=== PATIENT | male | born 1980 | race Caucasian/White ===

== ENCOUNTER 2023-11-02 15:10 | Inpatient (IN) | payer OTHER, SELFPAY ==
[2023-11-02] VITALS (76 sets, daily range): BP systolic 85–153; BP diastolic 62–111; PULSE 79–180; TEMP 36.3–36.9; O2SAT 91–98; BMI 38.0
[2023-11-02] MEDS: 0.9 % SODIUM CHLORIDE 1,000 ML 999 ML IV ×2 (15:30→17:02)
--- NOTE | 2023-11-02 15:30 | XR_ITS ---
The [address] [address] Patient Name: EVAN JULIEN MRN: [id number] date: 1980 Sex: M Assigned Patient Location: ER Current Patient Location: ER Accession/Order Number: [id number] Exam Date: 11/02/2023 15:50 Report Date: 11/02/2023 16:04 At the request of: KATIE HIRSCH Procedure: XR chest 1V EXAM: XR chest 1V HISTORY: chest pain COMPARISON: 05/29/2022 TECHNIQUE: Chest X-ray AP, 1 view FINDINGS: Support devices: None. Lungs/pleura: No pneumothorax. There is right upper lobe and perihilar airspace opacity with interstitial markings, may represent multifocal pneumonia and/or fibrotic changes due to prior infection/inflammation. CT of the chest with contrast is recommended for better evaluation. Heart and mediastinum: Normal contours. Bones: No acute abnormality identified. XR/XR chest 1V Impression: right upper lobe and perihilar airspace opacity with interstitial markings, may represent multifocal pneumonia and/or fibrotic changes due to prior infection/inflammation. CT of the chest with contrast is recommended for better evaluation. Electronically authenticated by: KEVON BOYD Date: 11/02/2023 16:04
--- NOTE | 2023-11-02 15:30 | ECG_ITS ---
The 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
[2023-11-02] MEDS: DILTIAZEM HCL 25 MG/5 ML VIAL 20 MG IV ×2 (15:34→17:02)
--- NOTE | 2023-11-02 15:35 | ED.GENADUL1 ---
HPI HPI - General Adult General Chief complaint: Nausea/Vomiting/Diarrhea Stated complaint: Shortness of Breath, Hx of Ca Time Seen by Provider: 11/02/23 15:14 Source: patient and family (mother) Mode of arrival: Wheelchair Limitations: no limitations History of Present Illness HPI narrative: 43-year-old male presents to the emergency department with mother with complaint of not feeling well over the past 2 days. Has had all of her body pain, cough, congestion, nausea, vomiting. Has not been tolerating solids or liquids. Patient has had chills. History of atrial fibrillation, on Eliquis. History of stage IV lung cancer. He receives weekly infusions through [facility]. Did not receive chemotherapy infusion this week. Quality:?as above Severity:?severe Timing:?as above, constant, worsening Context: Normal setting and activity? Modifying factors:?none Associated symptoms: as above Related Data Home Medications ?Medication ?Instructions ?Recorded ?Confirmed apixaban 5 mg tablet (Eliquis) 5 mg PO Q12H 11/02/23 11/02/23 buprenorphine 8 mg-naloxone 2 mg 1 film sublingual Q24H 11/02/23 11/02/23 sublingual film Allergies Allergy/AdvReac Type Severity Reaction Status Date / Time acetaminophen AdvReac Intermediate Nausea Verified 11/02/23 15:22 [From Darvocet-N] propoxyphene AdvReac Intermediate Nausea Verified 11/02/23 15:22 [From Darvocet-N] Opioid HPI Opioid Management Most Recent Opioid Data: No Data to Display Review of Systems ROS Constitutional Reports: chills, fatigue and malaise; Denies: fever Cardiovascular Reports: shortness of breath with exertion; Denies: chest pain or edema Respiratory Reports: shortness of breath and cough Gastrointestinal Reports: abdominal pain (generalized), nausea and vomiting Genitourinary Reports: decreased urine ouput; Denies: painful urination or urinary frequency Musculoskeletal Reports: joint pain and other (myalgias) Neurological Denies: headache or dizziness Endocrine Denies: fatigue Exam Constitutional Vital Signs, click to edit/add: Last Vital Signs Temp 98.4 F 11/02/23 15:18 Pulse 79 11/02/23 15:18 Resp 20 11/02/23 15:18 BP 109/88 11/02/23 15:34 Pulse Ox 97 11/02/23 15:18 O2 Del Method Room Air 11/02/23 15:18 Common normals: oriented x3 and alert General appearance: in distress mild and ill appearing acutely; not diaphoretic HENMT Common normals: normocephalic, head/scalp atraumatic and external nose normal Head and scalp: normocephalic and atraumatic Nose: external nose normal Respiratory Common normals: normal respiratory effort and clear to auscultation bilaterally Auscultation: clear to auscultation bilaterally and diminished lung sounds Cardio Common normals: no murmurs Rate: tachycardic Rhythm: abnormal rhythm irregularly irregular GI Common normals: soft to palpation and non-tender Inspection: normal to inspection Palpation: soft Extremity Common normals: normal to inspection Neuro Common normals: oriented x3, no focal motor deficits and no sensory deficits noted Sensorium/orientation: alert Psych Common normals: thought process normal, cooperative and affect normal Thought process: normal thought process Course Reevaluation(s) Reevaluation #1: HR improved to 120 Time: 17:08 Consultations Consultation #1: Patient Discussed with Dr. Camarena who will admit patient to the ICU Time: 17:08 Vital Signs Vital signs: Vital Signs Temperature 98.4 F 11/02/23 15:18 Pulse Rate 79 11/02/23 15:18 Respiratory Rate 20 11/02/23 15:18 Blood Pressure 124/98 H 11/02/23 15:18 Pulse Oximetry 97 11/02/23 15:18 Oxygen Delivery Method Room Air 11/02/23 15:18 Temperature 98.4 F 11/02/23 15:18 Pulse Rate 79 11/02/23 15:18 Respiratory Rate 20 11/02/23 15:18 Blood Pressure 109/88 11/02/23 15:34 Pulse Oximetry 97 11/02/23 15:18 Oxygen Delivery Method Room Air 11/02/23 15:18 Medical Decision Making [facility] Narrative Medical decision making narrative: This is a pleasant 43-year-old male presents to the emergency department with complaint of not feeling well over the past 2 days. Complains of nausea, vomiting, cough, generalized bodyaches, fatigue, chills. Patient with history of stage IV lung cancer. He receives infusions weekly through his port through [facility] [place]. Did not receive his infusion this week. He does have history of atrial fibrillation and is on Eliquis. On arrival, afebrile, tachycardic above 190. Normotensive. Not hypoxic. No respiratory distress. EKG was performed by nursing showing atrial fibrillation rapid reticular response. On exam, nontoxic, ill-appearing patient in no acute distress. Heart tachycardic, irregularly irregular rhythm. Lung sounds were diminished. Does demonstrate congested cough during exam. Abdomen soft, nontender. No peripheral edema. Labs reveal no leukocytosis. H&H were 11 and 33. No thrombocytopenia. Sodium 132. No renal impairment. Glucose 174. Magnesium 1.6. BNP was elevated at 1292. Troponin was within normal limits. COVID, influenza, RSV screens were negative. Chest x-ray imaging, per radiologist reveals multi focal pneumonia. With source of infection found, lactate, blood cultures added. Initial order was for 2 L of normal saline. He was given bolus of Cardizem at 20 mg and started on drip at 5 mg/h. This improved his heart rate from 190s to upper 150s. After 1 L of fluid, he remained in the upper 150s and was given subsequent bolus at 20 mg and his drip was increased to 10 mg/h. After cultures obtained, ordered IV Rocephin and Zithromax. Patient continued to improve during ED course. Heart rate has been as low as 120 up to time of disposition. Favor atrial fibrillation with rapid ventricular response, dehydration, right upper lobe pneumonia, hypomagnesemia, history of lung cancer PE less likely as patient is anticoagulated and he responded very well to treatment during ED course STEMI less likely based on biomarkers and EKG Disposition ? Plan: Patient will be admitted to the intensive care unit. Condition at time of disposition: Fair ? PLEASE NOTE: Portions of the medical record may have been produced using electronic records coordinator and may contain errors with respect to translation of words which may not have been identified prior to finalization of the chart. Medical Records Medical records reviewed: Yes I reviewed the patient's medical records Lab Data Lab results reviewed: Yes I reviewed the patient's lab results Labs: Lab Results 11/02/23 11/02/23 Range/Units 15:25 15:57 WBC 7.4 (4.0-11.0) 10^3/uL RBC 3.66 L (4.70-6.10) 10^6/uL Hgb 11.1 L (14.0-18.0) g/dL Hct 33.0 L (42.0-54.0) % MCV 90.2 (80.0-94.0) fL MCH 30.3 (25.9-34.0) pg MCHC 33.6 (29.9-35.2) g/dL RDW 15.7 H (11.0-15.0) % Plt Count 194 (150-450) 10^3/uL MPV 10.6 (9.5-13.5) fL Neut % (Auto) 73.8 (43.0-75.0) % Lymph % (Auto) 16.4 L (20.5-60.0) % [place] % (Auto) 5.3 (1.7-12.0) % Eos % (Auto) 0.0 L (0.9-7.0) % Baso % (Auto) 0.3 (0.2-2.0) % Neut # (Auto) 5.5 (1.4-6.5) 10^3/uL Lymph # (Auto) 1.2 (1.2-3.8) 10^3/uL [place] # (Auto) 0.4 (0.3-0.8) 10^3/uL Eos # (Auto) 0.0 (0.0-0.7) 10^3/uL Baso # (Auto) 0.0 (0.0-0.1) 10^3/uL Abs Immat Gran (auto) 0.31 H (0.00-0.03) 10^3/uL Imm/Tot Granulo (auto) 4.2 H (0.0-0.5) % Sodium 132 L (136-145) mmol/L Potassium 3.7 (3.5-5.1) mmol/L Chloride 96 L (98-107) mmol/L Carbon Dioxide 27.1 (21.0-32.0) mmol/L Anion Gap 12.6 BUN 6.0 L (7.0-18.0) mg/dL Creatinine 1.02 (0.70-1.30) mg/dL Est GFR ( Amer) >60 (>=60) Est GFR (Non-Af Amer) >60 (>=60) BUN/Creatinine Ratio 5.9 Glucose 174 H (74-106) mg/dL Calcium 9.0 (8.5-10.1) mg/dL Magnesium 1.6 L (1.8-2.4) mg/dL Total Bilirubin 1.5 H (0.2-1.0) mg/dL AST 16 (15-37) U/L ALT 50 (16-63) U/L Alkaline Phosphatase 33 L (46-116) U/L Troponin I High Sens 17.9 (4.0-76.1) pg/mL NT-Pro-B Natriuret Pep 1292.0 H* (<=450.0) pg/mL Total Protein 7.0 (6.4-8.2) g/dL Albumin 3.3 L (3.4-5.0) g/dL Globulin 3.7 g/dL Albumin/Globulin Ratio 0.9 Adenovirus (PCR) Not detected (NOT DETECTE) B. pertussis DNA (PCR) Not detected (NOT DETECTE) B.parapertussis DNA PCR Not detected (NOT DETECTE) C. pneumoniae DNA (PCR) Not detected (NOT DETECTE) Coronavirus Type OC43 Not detected (NOT DETECTE) Coronavirus Type HKU1 Not detected (NOT DETECTE) Coronavirus Type 229E Not detected (NOT DETECTE) Coronavirus Type NL63 Not detected (NOT DETECTE) Human Metapneumovir PCR Not detected (NOT DETECTE) Influenza Type A (PCR) Not detected (NOT DETECTE) Influenza Type B (PCR) Not detected (NOT DETECTE) M. pneumoniae (PCR) Not detected (NOT DETECTE) Parainfluenza PCR Not detected (NOT DETECTE) Parainfluenza 2 (PCR) Not detected (NOT DETECTE) Parainfluenza 3 (PCR) Not detected (NOT DETECTE) Parainfluenza 4 (PCR) Not detected (NOT DETECTE) RSV (RT-PCR) Not detected (NOT DETECTE) Entero/Rhino (PCR) Not detected (NOT DETECTE) SARS-CoV-2 (PCR) Not detected (NOT DETECTE) Imaging Data Chest x-ray: Radiologist's impression: ITS Impressions Chest X-Ray 11/02/23 15:30 Impression: right upper lobe and perihilar airspace opacity with interstitial markings, may represent multifocal pneumonia and/or fibrotic changes due to prior infection/inflammation. CT of the chest with contrast is recommended for better evaluation. Electronically authenticated by: KEVON TAMERATIERA Date: 11/02/2023 16:04 ECG Data Attestation: I personally reviewed and interpreted this ECG as follows: (EKG performed at 1523 hrs. reveals atrial fibrillation with rapid ventricular response at 189 bpm. No gross ischemia noted. Patient has right axis deviation.) Critical Care Time Critical Care Time Critical Care Time: Yes Total Critical Care Time: 40 Attestation: I spent a total of? 40 minutes of critical care time in the evaluation and management of this patient. This was necessary to treat or prevent deterioration of the following condition(s): Atiral fibrillation, dehydration with Hr at 189, which the patient had and/or has a high probability of suddenly developing. The patient received IV fluids, cardizem during the time that critical care was provided. Critical care time excludes separately billed procedures.? Discharge Plan Discharge Chief Complaint: Nausea/Vomiting/Diarrhea Clinical Impression: Atrial fibrillation with rapid ventricular response, Acute dehydration Right upper lobe pneumonia Qualifiers: Pneumonia type: due to unspecified organism Qualified Code(s): J18.9 - Pneumonia, unspecified organism Patient Disposition: Admitted As Inpatient Time of Disposition Decision: 17:05 Condition: Fair
[2023-11-02 15:45] LABS: Basophils Percent Auto 0.3 % (0.2-2.0); Hemoglobin 11.1 g/dL (14.0-18.0); Immature Granulocytes Abs Auto 0.31 10^3/uL (0.00-0.03); Immature Granulocytes Pct Auto 4.2 % (0.0-0.5); Lymphocytes Absolute Auto 1.2 10^3/uL (1.2-3.8); Lymphocytes Percent Auto 16.4 % (20.5-60.0); Mean Corpuscular HGB Conc 33.6 g/dL (29.9-35.2); Mean Corpuscular Hemoglobin 30.3 pg (25.9-34.0); Mean Corpuscular Volume 90.2 fL (80.0-94.0); Mean Platelet Volume 10.6 fL (9.5-13.5); Monocytes Absolute Auto 0.4 10^3/uL (0.3-0.8); Monocytes Percent Auto 5.3 % (1.7-12.0); Neutrophils Absolute Auto 5.5 10^3/uL (1.4-6.5); Neutrophils Percent Auto 73.8 % (43.0-75.0); Platelet Count 194 10^3/uL (150-450); Red Blood Count 3.66 10^6/uL (4.70-6.10); Red Cell Distribution Width 15.7 % (11.0-15.0); White Blood Count 7.4 10^3/uL (4.0-11.0)
[2023-11-02] MEDS: dilTIAZem HCL 125 MG in 0.9 % SODIUM CHLORIDE 100 ML IV (15:48)
[2023-11-02 16:02] LABS: Adenovirus NOT DETECTED (NOT DETECTE); Bordetella parapertussis NOT DETECTED (NOT DETECTE); Coronavirus 229E NOT DETECTED (NOT DETECTE); Coronavirus HKU1 NOT DETECTED (NOT DETECTE); Coronavirus NL63 NOT DETECTED (NOT DETECTE); Coronavirus OC43 NOT DETECTED (NOT DETECTE); Human Metapneumovirus NOT DETECTED (NOT DETECTE); Human Rhinovirus/Enterovirus NOT DETECTED (NOT DETECTE); Influenza A NOT DETECTED (NOT DETECTE); Influenza B NOT DETECTED (NOT DETECTE); Mycoplasma pneumoniae NOT DETECTED (NOT DETECTE); Parainfluenza Virus 1 NOT DETECTED (NOT DETECTE); Parainfluenza Virus 2 NOT DETECTED (NOT DETECTE); Parainfluenza Virus 3 NOT DETECTED (NOT DETECTE); Parainfluenza Virus 4 NOT DETECTED (NOT DETECTE); Respiratory Syncytial Virus NOT DETECTED (NOT DETECTE); SARS-CoV-2 NOT DETECTED (NOT DETECTE)
[2023-11-02 16:16] LABS: Alanine Aminotransferase 50 U/L (16-63); Albumin Globulin Ratio 0.9; Albumin Level 3.3 g/dL (3.4-5.0); Alkaline Phosphatase 33 U/L (46-116); Anion Gap 12.6; Aspartate Amino Transferase 16 U/L (15-37); BUN Creatinine Ratio 5.9; Bilirubin Total 1.5 mg/dL (0.2-1.0); Carbon Dioxide 27.1 mmol/L (21.0-32.0); Chloride 96 mmol/L (98-107); Estimated GFR (African America >60 (>=60); Estimated GFR (Non-African Ame >60 (>=60); Globulin 3.7 g/dL; Glucose 174 mg/dL (74-106); Magnesium 1.6 mg/dL (1.8-2.4); Potassium 3.7 mmol/L (3.5-5.1); Sodium 132 mmol/L (136-145); Troponin I High Sensitivity 17.9 pg/mL (4.0-76.1)
[2023-11-02] MEDS: KETOROLAC TROMETHAMINE 30 MG/ML VIAL 15 MG IVP (16:16)
[2023-11-02] MEDS: ONDANSETRON PF 4 MG/2 ML VIAL IV (16:16)
[2023-11-02] MEDS: CEFTRIAXONE 1,000 MG in 0.9 % SODIUM CHLORIDE 50 ML 100 MG IV (17:02)
[2023-11-02 17:16] LABS: Lactate/Lactic Acid 1.5 mmol/L (0.4-2.0)
--- NOTE | 2023-11-02 17:26 | P.HP_ITS ---
HPI H&P: HPI History of Present Illness Chief complaint: SOB, Hx of Ca, A-fib w/RVR, Dehydration, Pneumonia Narrative: 43 y o male with hx of squamous cell lung ca, currently receiving chemo presents with one week hx of feeling unwell. He reports headache/generalized weakness, productive sputum and SOB x 1 week. Patient also has nausea/vomiting and has not been able to tolerate PO Diet. Denies abdominal pain, urinary complaints or changes in bowel habits. Patient reports that most of her family members are sick. Work up in ED revealed afib with RVR, right upper lobe PNA. Patient had received IV cardizem push and 1 L IVF bolus but his HR was still persistently above 130 and appeared diaphoretic and short of breath at rest when I evaluated him. Patient will require admission to ICU for Afib with RVR, RUL PNA. He is at high risk of treatment failure/poor prognosis due to underlying immunosuppression from chemotherapy. Opioid HPI Opioid Management Most Recent Pain and Opioid Data: Last Pain Scale 6 11/03/23 11:00 Last Pain Assessment 11/03/23 11:00 Last MAR Pain Assessment 11/03/23 05:20 Last ORT Total Score 18 11/02/23 19:10 Last ORT Risk Category High Risk 11/02/23 19:10 Review of Systems ROS Status of ROS 10 or more systems reviewed and unremark able except as noted in history and below [facility] Medical History (Updated 11/03/23 @ 11:36 by Shaikh Nicol MD) Immunosuppressed due to chemotherapy ?D84.821 - Immunodeficiency due to drugs (ICD-10) ?T45.1X5A - Adverse effect of antineoplastic and immunosuppressive drugs, initial encounter (ICD-10) ?Z79.899 - Other rn long term care (current) drug therapy (ICD-10) Opioid use disorder in remission ?F11.91 - Opioid use, unspecified, in remission (ICD-10) (HFpEF) heart failure with preserved ejection fraction ?I50.30 - Unspecified diastolic (congestive) heart failure (ICD-10) Obesity ?E66.9 - Obesity, unspecified (ICD-10) Squamous cell carcinoma of lung, stage IV ?C34.90 - Malignant neoplasm of unspecified part of unspecified bronchus or lung (ICD-10) Social History Highest level of school completed/degree received: some college, no degree Little interest or pleasure in doing things: not at all Feeling down, depressed, or hopeless: not at all Do you think of yourself as: straight/heterosexual Gender Identity: male Meds Home Medications and Allergies Home Medications ?Medication ?Instructions ?Recorded ?Confirmed ?Type albuterol sulfate 90 mcg/actuation 2 puff inhalation Q6H PRN 11/02/23 11/02/23 History aerosol inhaler shortness of breath or wheezing apixaban 5 mg tablet (Eliquis) 5 mg PO Q12H 11/02/23 11/02/23 History buprenorphine 8 mg-naloxone 2 mg 1 film sublingual BID 11/02/23 11/02/23 History sublingual film carvedilol 3.125 mg tablet 3.125 mg PO BID 11/02/23 11/02/23 History dexamethasone 4 mg tablet 4 mg PO BID 11/02/23 11/02/23 History diltiazem HCl 30 mg tablet 30 mg PO BID 11/02/23 11/02/23 History furosemide 20 mg tablet 20 mg PO DAILY 11/02/23 11/02/23 History hydroxyzine pamoate 50 mg capsule 50 mg PO .QHS PRN anxiety 11/02/23 11/02/23 History prochlorperazine maleate 10 mg 10 mg PO Q6H PRN nausea and 11/02/23 11/02/23 History tablet vomiting Allergies Allergy/AdvReac Type Severity Reaction Status Date / Time acetaminophen AdvReac Intermediate Nausea Verified 11/02/23 15:22 [From Darvocet-N] propoxyphene AdvReac Intermediate Nausea Verified 11/02/23 15:22 [From Darvocet-N] Exam Constitutional Vital Signs, click to edit/add: Last Vital Signs Temp 98.4 F 11/02/23 15:18 Pulse 79 11/02/23 15:18 Resp 20 11/02/23 15:18 BP 103/78 11/02/23 17:02 Pulse Ox 97 11/02/23 15:18 O2 Del Method Room Air 11/02/23 15:18 Common normals: oriented x3 General appearance: cooperative, in distress mild and ill appearing Nutritional appearance: obese HENMT Common normals: normocephalic and head/scalp atraumatic Respiratory Common normals: normal respiratory effort, no retractions and no use of accessory muscles Effort & inspection: able to speak in complete sentences Auscultation: diminished lung sounds Cardio Common normals: S1 normal heart sound and S2 normal heart sound Rate: tachycardic Rhythm: abnormal rhythm GI Common normals: Normal to inspection, nondistended, normoactive bowel sounds present, soft to palpation, non-tender and no hepatosplenomegaly Extremity General: edema (+1) Neuro Common normals: oriented x3, moves all extremities, no focal motor deficits and no sensory deficits noted Psych Common normals: mental status grossly normal, thought process normal, denies homicidal ideation and denies suicidal ideation Results Labs Labs: Short CBC 11/02/23 Range/Units 15:25 WBC 7.4 (4.0-11.0) 10^3/uL Hgb 11.1 L (14.0-18.0) g/dL Hct 33.0 L (42.0-54.0) % Plt Count 194 (150-450) 10^3/uL BMP 11/02/23 15:25 Sodium 132 L Potassium 3.7 Chloride 96 L Carbon Dioxide 27.1 BUN 6.0 L Creatinine 1.02 Glucose 174 H Calcium 9.0 Liver Function 11/02/23 Range/Units 15:25 Total Bilirubin 1.5 H (0.2-1.0) mg/dL AST 16 (15-37) U/L ALT 50 (16-63) U/L Alkaline Phosphatase 33 L (46-116) U/L Albumin 3.3 L (3.4-5.0) g/dL Assessment and Plan Assessment and Plan (1) Right upper lobe pneumonia: Assessment and Plan: At high risk of resistant organism due to immunosuppression. Started on Rocephin/Levaquin so that he has antipseudomonal coverage also. F/u blood and sputum cx. Qualifiers: Pneumonia type: due to unspecified organism Qualified Code(s): J18.9 - Pneumonia, unspecified organism (2) Atrial fibrillation with rapid ventricular response: Assessment and Plan: Presented with Afib with RVR with HR as high as 170. Slight improvement with IV cardizem. Will need continuous IV cardizem infusion. Already on Eliquis for stroke px. Monitor closely. Increase Coreg to 6.25 q12. (3) Squamous cell carcinoma of lung, stage IV: Assessment and Plan: Currently receiving chemo. Missed his last dose prior week as he was feeling unwell. Qualifiers: Laterality: unspecified laterality Qualified Code(s): C34.90 - Malignant neoplasm of unspecified part of unspecified bronchus or lung (4) (HFpEF) heart failure with preserved ejection fraction: Assessment and Plan: While his BNP is elevated, he appears dry on clinical exam likely due to poor PO intake, patient received IVF bolus in ED. Started on maintenance IVF. Will need close monitoring to avoid risk of volume overload with hx of CHF. Qualifiers: Heart failure chronicity: chronic Qualified Code(s): I50.32 - Chronic diastolic (congestive) heart failure (5) Dehydration with hyponatremia: Assessment and Plan: Appears dry clinically with dehydration. Received IVF bolus in ED. cw IV hydration overnight. (6) Hypomagnesemia: Assessment and Plan: Repleted. Keep Mg above 2. (7) Opioid use disorder in remission: Assessment and Plan: On Suboxone. (8) Immunosuppressed due to chemotherapy: Assessment and Plan: A high risk of poor outcome and treatment failure. Needs close monitoring. (9) Obesity: Assessment and Plan: Recommend weight loss. Defer to PCP. Qualifiers: Obesity type: due to excess calories Obesity classification: adult class 2 (BMI 35 - 39.9) Serious obesity comorbidity presence: without serious comorbidity Body mass index: BMI 39.0-39.9 Qualified Code(s): E66.09 - Other obesity due to excess calories; Z68.39 - Body mass index [BMI] 39.0-39.9, adult
[2023-11-02] MEDS: AZITHROMYCIN 500 MG in 0.9 % SODIUM CHLORIDE 250 ML 250 MG IV (17:37)
[2023-11-02] MEDS: MAGNESIUM SULFATE IN WATER 2 GM/50 ML PREMIX IV ×2 (18:31→19:27)
[2023-11-02] MEDS: LEVOFLOXACIN IN DEXTROSE 5 % 750 MG/150 ML PREMIX 100 MG IV (19:19)
[2023-11-02] MEDS: CARVEDILOL 6.25 MG TABLET PO (19:20)
[2023-11-02] MEDS: LACTATED RINGER'S SOLUTION 1,000 ML 125 ML IV (19:20)
[2023-11-02] MEDS: Buprenorphine-Naloxone 8-2 mg film 1 EACH SL (20:13)
--- NOTE | 2023-11-02 20:35 | PC.NURSE ---
complains of sob and chest pain with coughing and deep breathing. placed on 2L NC for comfort and to ease breathing
[2023-11-02] MEDS: APIXABAN 5 MG TABLET PO (21:08)
--- NOTE | 2023-11-02 22:32 | RESP.RT ---
Increased to 2 lpm for HR/SOB
[2023-11-03] VITALS (98 sets, daily range): BP systolic 90–142; BP diastolic 67–89; PULSE 78–148; TEMP 36.6–36.9; O2SAT 85–98
[2023-11-03] MEDS: LACTATED RINGER'S SOLUTION 1,000 ML 75 ML IV (03:44)
[2023-11-03] MEDS: dilTIAZem HCL 125 MG in 0.9 % SODIUM CHLORIDE 100 ML 10 MG IV (04:32)
[2023-11-03] MEDS: ONDANSETRON PF 4 MG/2 ML VIAL IV ×2 (04:32→13:46)
[2023-11-03] MEDS: KETOROLAC TROMETHAMINE 30 MG/ML VIAL IVP ×2 (04:32→13:51)
--- NOTE | 2023-11-03 05:23 | RESP.RT ---
Patient denies need for HHN
[2023-11-03 05:41] LABS: Hematocrit 29.9 % (42.0-54.0); Hemoglobin 9.9 g/dL (14.0-18.0); Mean Corpuscular HGB Conc 33.1 g/dL (29.9-35.2); Mean Corpuscular Volume 90.6 fL (80.0-94.0); Mean Platelet Volume 10.5 fL (9.5-13.5); Platelet Count 197 10^3/uL (150-450); White Blood Count 6.5 10^3/uL (4.0-11.0)
[2023-11-03 06:02] LABS: Atypical Lymphocytes Abs Man 0.32; Band Neutrophils Absolute 0.1 10^3/uL (0.0-0.3); Lymphocytes Absolute Manual 0.97 10^3/uL (1.20-3.80); Monocytes Absolute Manual 0.39 10^3/uL (0.30-0.80); Myelocytes Absolute Manual 0.06; Promyelocytes Absolute Manual 0.13; Segmented Neut Absolute Manual 4.55 10^3/uL (1.4-6.5)
[2023-11-03 06:03] LABS: Toxic Granulation 3+
--- OUTSIDE RECORDS SUMMARY | 2023-11-03 06:07 | XMS_ITS | CCD ---
Author Organization [facility] Team Providers Care National Service Officer Name Role Phone Izzy Hughes Unavailable [phone] Unavailable Unavailable Johnnie Bruce Unavailable Danuta Centeno Unavailable NO FAMILY, PHYSICIAN Primary Care Provider Unava ilable MD Danuta Centeno Attending Provider MD Johnnie Bruce Attending Provider [phone] Unavailable Unavailable Ellen Ms. Izzy Vela Primary Care Un available McGuinn II, Fermin Ledezma Attending Unav ailable McGuinn II, Fermin Ledezma Referring Unav ailable Ms. Izzy Hughes Mirian Primary Care Un available McGuinn II, Fermin Ledezma Attending Unav ailable McGuinn II, Fermin Ledezma Referring Unav ailable IZZY HUGHES Primary Care Unavailable PAY ., DR HULL Admitting Unavailable PAY ., DR HULL Attending Unavailable JOSSELYN MOMIN Consulting Unavailable PAY ., DR HULL Consulting Unavailable YAMILEX ESPINOZA Consulting Unavailable DIAB ., JAY Admitting Unavailable DIAB ., JAY Attending Unavailable DR LIOR OWEN Primary Care Unavailable DELORES GARCIA Consulting Unavailable SARIKA BAXTER Consulting Unavailable AMBIKA CARVER Consulting Unavailable DIAB ., JAY Consulting Unavailable Sandy ., Carlos Sorensen Primary Care Provider KATIE BAEZ Attending Unavailable JETMORE CARLOS CASTANEDA Primary Care ALESSANDRO Herron Referring Unavaila ble GALDINO OLMOS Referring Unavailable OMBALLGALDINO Medina Referring Unavailable OMBALLI, MOHAMED Attending Unavailable Unavailable Primary Care Provider Unavailabl e Generic Provider MD, No Assigned Pcp Primary Car e Provider Unavailable Generic Provider MD, No Assigned Pcp Primary Car e Provider Unavailable No Pcp, No Pcp Primary Care Provider Unavailabl e Fermin Wall Referring Unavail able Fermin Wall Attending Unavail able Fermin Wall Admitting Unavail able NO FAMILY, PHYSICIAN Primary Care Unavailable NO PCP, NO PCP Primary Care Unavailable NO PCP, NO PCP Primary Care Unavailable MORRIS BHAT Attending Unavailable CARLOS, RYAN N Referring Unavailable NO PCP, NO PCP Primary Care Unavailable MCGSHAHBAZNFERMIN P Attending Unavailable MCGUINNFERMIN P Attending Unavailable MCGUINN FERMIN P Referring Unavailable GENERIC PROVIDER, NO ASSIGNED PCP Primary Care Unavailable MCGUINN FERMIN P Attending Unavailable MCGUINN, FERMIN P Referring Unavailable GENERIC PROVIDER, NO ASSIGNED PCP Primary Care Unavailable MCGUINN, FERMIN P Referring Unavailable GENERIC PROVIDER, NO ASSIGNED PCP Primary Care Unavailable CARLOS, RYAN N Attending Unavailable PHYSICIAN, UNKNOWN Referring Unavailable NO PCP, NO PCP Primary Care Unavailable CARLOS, RYAN N Attending Unavailable CARLOS, RYAN N Referring Unavailable NO PCP, NO PCP Primary Care Unavailable CARLOS, RYAN N Attending Unavailable PÉREZ, MOHAMMAD ELTON Referring Unavaila ble NO PCP, NO PCP Primary Care Unavailable NO PCP, NO PCP Primary Care Unavailable PÉREZ, MOHAMMAD ELTON Referring Unavaila ble CARLOS, RYAN N Attending Unavailable CARLOS, RYAN N Referring Unavailable NO PCP, NO PCP Primary Care Unavailable PHYSICIAN, UNKNOWN Referring Unavailable NO PCP, NO PCP Primary Care Unavailable CARLOS, RYAN N Referring Unavailable NO PCP, NO PCP Primary Care Unavailable NO PCP, NO PCP Primary Care Unavailable CARLOS, RYAN N Referring Unavailable PHYSICIAN, UNKNOWN Referring Unavailable NO PCP, NO PCP Primary Care Unavailable PHYSICIAN, UNKNOWN Referring Unavailable NO PCP, NO PCP Primary Care Unavailable PÉREZ, MOHAMMAD ELTON Referring Unavaila ble NO PCP, NO PCP Primary Care Unavailable CARLOS, RYAN N Referring Unavailable NO PCP, NO PCP Primary Care Unavailable PÉREZ, MOHAMMAD ELTON Referring Unavaila ble NO PCP, NO PCP Primary Care Unavailable PÉREZ, MOHAMMAD ELTON Referring Unavaila ble NO PCP, NO PCP Primary Care Unavailable PHYSICIAN, UNKNOWN Referring Unavailable NO PCP, NO PCP Primary Care Unavailable PÉREZ, MOHAMMAD ELTON Referring Unavaila ble NO PCP, NO PCP Primary Care Unavailable CARLOS, RYAN N Attending Unavailable CARLOS, RYAN N Referring Unavailable NO PCP, NO PCP Primary Care Unavailable CARLOS, RYAN N Attending Unavailable PÉREZMORRIS DAIGLE ELTON Referring Unavaila ble NO PCP, NO PCP Primary Care Unavailable CARLOS, RYAN N Attending Unavailable CARLOS, RYAN N Referring Unavailable NO PCP, NO PCP Primary Care Unavailable PÉREZMORRIS DAIGLE ELTON Referring Unavaila ble NO PCP, NO PCP Primary Care Unavailable PHYSICIAN, UNKNOWN Referring Unavailable NO PCP, NO PCP Primary Care Unavailable CARLOS, RYAN N Referring Unavailable NO PCP, NO PCP Primary Care Unavailable PHYSICIAN, UNKNOWN Referring Unavailable NO PCP, NO PCP Primary Care Unavailable PHYSICIAN, UNKNOWN Referring Unavailable NO PCP, NO PCP Primary Care Unavailable PHYSICIAN, UNKNOWN Referring Unavailable NO PCP, NO PCP Primary Care Unavailable PHYSICIAN, UNKNOWN Referring Unavailable NO PCP, NO PCP Primary Care Unavailable PHYSICIAN, UNKNOWN Referring Unavailable NO PCP, NO PCP Primary Care Unavailable PHYSICIAN, UNKNOWN Referring Unavailable NO PCP, NO PCP Primary Care Unavailable CARLOS, RYAN N Referring Unavailable NO PCP, NO PCP Primary Care Unavailable GEMMA, KATHERINE Attending Unavailable GEMMA, KATHERINE Referring Unavailable NO PCP, NO PCP Primary Care Unavailable LEIGHANN LOMELI Admitting Unavailable CARLOS, RYAN N Referring Unavailable NO PCP, NO PCP Primary Care Unavailable Allergies Allergy Classification Reported Allergen(s) Allergy Type Date of Onset Reaction(s) Facility (6 sources) celecoxib; Translations: [CELECOXIB] Drug Allergy 1 GI Upset [facility] Work Phone: (6 sources) metaxalone; Translations: [METAXALONE] Drug Allergy 1 GI Upset [facility] Work Phone: (4 sources) Other; Translations: [OTHER] Propensity to adverse reactions 5 Nausea And Vomiting, Other (See Comments) [employer] (1 source) Metoprolol; Translations: [METOPROLOL SUCCINATE] Drug Allergy 4 [facility] Medications Current Medications Medication Drug Class(es) Dates Sig (Normalized) Sig (Original) apixaban 5 mg oral tablet (3 sources) Factor Xa Inhibitor Start: 07-05-2022 End: 05-16-2024 take 1 tablet by mouth twice daily apixaban (Eliquis) 5 mg tablet Indications: Paroxysmal atrial fibrillation (Multi) Take 1 tablet (5 mg) by mouth 2 times a day. 180 tablet 1 05/17/2023 05/16/2024 Active aspirin 81 mg chewable tablet (2 sources) Platelet Aggregation Inhibitor, Nonsteroidal Anti-inflammatory Drug take 1 tablet by mouth every twenty-four hours Aspirin 81 MG 1 tablet Orally Once a day for 30 days Active dilTIAZem hydrochloride 30 mg oral tablet (1 source) Calcium Channel Ronna Start: 07-20-2023 End: 07-19-2024 take 1 tablet by mouth twice daily dilTIAZem (Cardizem) 30 mg immediate release tablet Indications: Paroxysmal atrial fibrillation (Multi) Take 1 tablet (30 mg) by mouth 2 times a day. 180 tablet 3 07/20/2023 07/19/2024 Active ibuprofen 800 mg oral tablet (1 source) Nonsteroidal Anti-inflammatory Drug take 1 tablet by mouth every six hours as needed for pain ibuprofen (MOTRIN) 800 mg tablet Take 1 tablet (800 mg total) by mouth every 6 (six) hours as needed for pain. 0 Active ketorolac tromethamine 10 mg oral tablet (1 source) Nonsteroidal Anti-inflammatory Drug, Cyclooxygenase Inhibitor Start: 10-14-2021 take 1 tablet by mouth every six hours as needed Toradol 10mg 1 tablet po every 6 hours as needed for 7 days Sep, Active 24 hr metoprolol succinate 200 mg extended release oral tablet (7 sources) beta-Adrenergic Ronna Start: 12-01-2022 End: 12-01-2023 take 1 tablet by mouth once daily metoprolol succinate XL (Toprol-XL) 200 mg 24 hr tablet Indications: Diastolic congestive heart failure, unspecified HF chronicity (CMS/HCC) , Primary hypertension , Paroxysmal atrial fibrillation (CMS/HCC) Take 1 tablet (200 mg) by mouth once daily. Do not crush or chew. 90 tablet 3 12/01/2022 05/17/2023 Discontinued (Side effects) Start: 08-03-2022 End: 12-01-2022 take 1 tablet by mouth once daily Metoprolol Succinate ER 100 MG Oral Tablet Extended Release 24 Hour TAKE 1 TABLET ONCE DAILY. Quantity: 90 Refills: 3 Ordered: 03-Aug-2022 Fermin Wall MD Start : 03-Aug-2022 Active new start Start: 07-07-2022 take 1 tablet by stanislaw th every twenty-four hours at bedtime metoprolol succinate XL (TOPROL XL) 50 mg 24 hr tablet Take 1 tablet (50 mg total) by mouth in the morning and at bedtime. 180 tablet 3 07/07/2022 Active multivitamin (MEN'S MULTI-VITAMIN) tablet (1 source) take 1 tablet by mouth in the morning multivitamin (MEN'S MULTI-VITAMIN) tablet Take 1 tablet by mouth in the morning. 0 Active naproxen 250 mg oral tablet (2 sources) Nonsteroidal Anti-inflammatory Drug Start: 022 take 1-2 tablets by mouth twice daily at mealtime Naproxen 250 MG 1-2 tablet with food or milk Orally Twice a day for 30 day(s) Sep, Active take 2 tablets by mo ut in the morning, then take 2 tablets by mouth at mealtime naproxen sodium (ALEVE) 220 mg tablet Take 2 tablets (440 mg total) by mouth in the morning and 2 tablets (440 mg total) in the evening. Take with meals. 0 Active 4 ml pembrolizumab 25 mg/ml injection (2 sources) Programmed Receptor-1 Blocking Antibody pembrolizumab (Keytr uda) 25 mg/mL chemo injection Infuse 8 mL (200 mg) into a venous catheter. Every 3 weeks Active Completed/Discontinued Medications Medication Drug Class(es) Dates Sig (Normalized) Sig (Original) amiodarone hydrochloride 200 mg oral tablet (2 sources) Antiarrhythmic Start: 05-17-2023 End: 11-13-2023 take 1 tablet by mouth twice daily amiodarone (Pacerone) 200 mg tablet Indications: Paroxysmal atrial fibrillation (Multi) Take 1 tablet (200 mg) by mouth 2 times a day. 180 tablet 1 05/17/2023 07/20/2023 Discontinued (Therapy completed) buprenorphine 8 mg / naloxone 2 mg sublingual film (9 sources) Partial Opioid Agonist, Opioid Antagonist Start: 06-01-2022 buprenorphine-nal oxone (SUBOXONE) 8-2 mg film dissolve 1 FILM under the tongue twice a day 0 06/01/2022 Active buprenorphine-na loxone (Suboxone) 8-2 mg SL tablet 1 tablet 2 times a day. Active buprenorphine-na loxone (SUBOXONE) 8-2 mg per SL tablet Place 1 tablet under the tongue in the morning. 0 Active Suboxone 8-2 MG Sublingual Film Quantity: 0 Refills: 0 Ordered: 13-Jul-2022 DO Active Buprenorphine HC l-Naloxone HCl 8-2 MG Sublingual for 14 Days Active Comment on above: dissolve 1 FILM unde r the tongue twice a day cefpodoxime 200 mg oral tablet (1 source) Cephalosporin Antibacterial Start: 05-31-19 take 2 tablets by mouth every twelve hours cefpodoxime (VANTIN) 200 mg tablet Take 400 mg by mouth every 12 hours. 0 05/30/2022 Active Comment on above: Take 400 mg by mouth every 12 hours. furosemide 20 mg oral tablet (9 sources) Loop Diuretic Start: 08-30-19 End: 12-02-19 take 1 tablet by mouth once daily furosemide (Lasix) 20 mg tablet Take 1 tablet (20 mg) by mouth once daily. 0 08/29/2020 12/01/2022 Discontinued (Other) Comment on above: Take 20 mg by mouth once daily. lisinopril 10 mg oral tablet (6 sources) Angiotensin Converting Enzyme Inhibitor Start: 08-30-19 End: 12-02-19 take 1 tablet by mouth once daily lisinopril 10 mg tablet Take 1 tablet (10 mg) by mouth once daily. 0 08/29/2020 12/01/2022 Discontinued (Other) Comment on above: Take 10 mg by mouth once daily. losartan potassium 50 mg oral tablet (3 sources) Angiotensin 2 Receptor Rnona Start: 05-29-19 take 1 tablet by mouth once daily losartan (COZAAR) 50 mg tablet Take 50 mg by mouth once daily. 0 05/28/2022 Active Start: 03-03-2022 take 1 tablet by stanislaw th once daily Losartan Potassium 50 MG Oral Tablet TAKE 1 TABLET DAILY. Quantity: 90 Refills: 3 Ordered: 03-Mar-2022 Fermin Wall MD Start : 03-Mar-2022 Active take 0.5 tablet by m outh once daily losartan (COZAAR) 50 mg tablet Take 0.5 tablets (25 mg total) by mouth daily. 0 Active Comment on above: Take 50 mg by mouth once daily. metFORMIN hydrochloride 500 mg oral tablet (1 source) Biguanide take 1 tablet by mouth twice daily metFORMIN (GLUCOPHAGE) 500 mg tablet Take 500 mg by mouth twice daily. 0 Active Comment on above: Take 500 mg by mouth twice daily. 24 hr nicotine 0.875 mg/hr transdermal system (1 source) Cholinergic Nicotinic Agonist Start: apply 1 dose transdermal route once daily nicotine (NICODERM) 21 mg/24 hr apply 1 patch to CLEAN, DRY, AND INTACT SKIN once daily REMOVE ev... (REFER TO PRESCRIPTION NOTES). 0 06/02/2022 Active Comment on above: apply 1 patch to ALBERTO AN, DRY, AND INTACT SKIN once daily REMOVE ev... (REFER TO PRESCRIPTION NOTES). potassium chloride 10 meq extended release oral tablet (5 sources) Start: 021 End: 023 take 1 tablet by mouth once daily potassium chloride CR 10 mEq ER tablet Take 1 tablet (10 mEq) by mouth once daily. 0 08/29/2020 12/01/2022 Discontinued (Other) Problems Active Problems Problem Classification Problem Date Documented Date Episodic/Chronic Anxiety disorders (3 sources) Claustrophobia; Translations: [Claustrophobia] Onset: 05-19-2021 Resolved: 05-19-2021 Chronic Cancer of bronchus; lung (6 sources) Malignant tumor of lung; Translations: [Malignant neoplasm of unspecified main bronchus] Onset: 05-31-2023 12-01-2022 Chronic Cardiac dysrhythmias (18 sources) Paroxysmal atrial fibrillation; Translations: [Atrial fibrillation] Onset: 10-27-2022 12-01-2022 Chronic Congestive heart failure; nonhypertensive (20 sources) Congestive heart failure; Translations: [Congestive heart failure, unspecified] Onset: 10-27-2022 Resolved: 08-03-2022 12-01-2022 Chronic Essential hypertension (19 sources) Hypertensive disorder; Translations: [Unspecified essential hypertension] Onset: 10-27-2022 12-01-2022 Chronic Headache; including migraine (1 source) Headache; including migraine; Translations: [Headache, unspecified] Onset: 08-05-2023 Lymphadenitis (2 sources) Localized enlarged lymph nodes; Translations: [Localized enlarged lymph nodes] Onset: 07-16-2022 Episodic Nonspecific chest pain (3 sources) Chest pain, unspecified; Translations: [CHEST PAIN UNSPECIFIED] Onset: 05-29-2022 Episodic Other aftercare (4 sources) Taking high risk medication; Translations: [Other manager long term care (current) drug therapy] Onset: 05-17-2023 05-17-2023 Episodic Other and unspecified benign neoplasm (1 source) Multiple benign melanocytic nevi ; Translations: [Melanocytic nevi, unspecified] Episodic Other and unspecified benign neoplasm (1 source) Senile angioma; Translations: [Hemangioma of skin and subcutaneous tissue] Episodic Other and unspecified benign neoplasm (1 source) Dermatofibroma; Translations: [Other benign neoplasm of skin, unspecified] Episodic Other circulatory disease (1 source) Nevus, non-neoplastic; Translations: [Other and unspecified capillary diseases] Episodic Other connective tissue disease (4 sources) Foot pain; Translations: [Pain in limb] Episodic Other diseases of veins and lymphatics (1 source) Venous hypertension of lower limb; Translations: [Chronic venous hypertension (idiopathic) without complications of bilateral lower extremity] Onset: 09-14-2019 09-14-2019 Chronic Other lower respiratory disease (1 source) Hemoptysis; Translations: [HEMOPTYSIS] Onset: 06-01-2022 Episodic Other lower respiratory disease (2 sources) Other nonspecific abnormal finding of lung field; Translations: [Other nonspecific abnormal finding of lung field] Onset: 07-09-2022 Episodic Other lower respiratory disease (1 source) Shortness of breath; Translations: [Shortness of breath] Onset: 09-05-2023 Episodic Other lower respiratory disease (1 source) Wheezing Onset: 09-05-2023 Episodic Other lower respiratory disease (1 source) Cough Onset: 09-05-2023 Episodic Other lower respiratory disease (1 source) Shortness of breath Onset: 09-05-2023 Episodic Other nutritional; endocrine; and metabolic disorders (4 sources) Body mass index 40+ - severely obese; Translations: [Morbid obesity] Chronic Other nutritional; endocrine; and metabolic disorders (1 source) Body mass index (BMI) 40.0-44.9, adult Onset: 05-19-2021 Resolved: 05-19-2021 Chronic Other nutritional; endocrine; and metabolic disorders (3 sources) Body mass index 30+ - obesity; Translations: [Body mass index (BMI) 39.0-39.9, adult] Onset: 05-17-2023 05-17-2023 Chronic Other nutritional; endocrine; and metabolic disorders (2 sources) Body mass index (BMI) 39.0-39.9, adult; Translations: [Body mass index (BMI) 39.0-39.9, adult] Onset: 05-17-2023 Chronic Other skin disorders (1 source) Localized swelling, mass and lump, trunk; Translations: [LOCALIZD SWELLING MASS AND LUMP TRUNK] Onset: 06-01-2022 Episodic Other skin disorders (1 source) Seborrheic keratosis; Translations: [Other seborrheic keratosis] Episodic Other skin disorders (1 source) Lentiginosis; Translations: [Other melanin hyperpigmentation] Episodic Pneumonia (except that caused by tuberculosis or sexually transmitted disease) (1 source) Pneumonia, unspecified organism; Translations: [PNEUMONIA UNSPECIFIED ORGANISM] Onset: 06-01-2022 Episodic Residual codes; unclassified (11 sources) Sleep apnea; Translations: [Unspecified sleep apnea] Onset: 10-27-2022 10-27-2022 Chronic Residual codes; unclassified (3 sources) Obstructive sleep apnea syndrome; Translations: [Obstructive sleep apnea (adult) (pediatric)] Onset: 02-08-2017 02-08-2017 Chronic Residual codes; unclassified (2 sources) Hypoxia; Translations: [Idiopathic sleep related nonobstructive alveolar hypoventilation] Chronic Residual codes; unclassified (2 sources) Obstructive sleep apnea (adult) (pediatric); Translations: [Obstructive sleep apnea (adult) (pediatric)] Onset: 02-08-2017 Resolved: 05-19-2021 Chronic Residual codes; unclassified (1 source) Idiopathic sleep related nonobstructive alveolar hypoventilation Onset: 05-19-2021 Resolved: 05-19-2021 Chronic Residual codes; unclassified (1 source) Family history of malignant neoplasm of skin; Translations: [Family history of malignant neoplasm of other organs or systems] Episodic Residual codes; unclassified (1 source) Localized edema; Translations: [Localized edema] Onset: 09-13-2023 Episodic Secondary malignancies (2 sources) Secondary and unspecified malignant neoplasm of intrathoracic lymph nodes; Translations: [Secondary and unspecified malignant neoplasm of intrathoracic lymph nodes] Onset: 07-09-2022 Chronic Secondary malignancies (2 sources) Secondary and unspecified malignant neoplasm of lymph nodes of head, face and neck; Translations: [Secondary and unspecified malignant neoplasm of lymph nodes of head, face and neck] Onset: 06-16-2023 Chronic Substance-related disorders (6 sources) Smoker; Translations: [Tobacco use disorder] Onset: 09-14-2019 09-14-2019 Chronic Comment on above: 1 PPD; Unclassified (2 sources) New Patient Onset: 06-16-2023 Unclassified (1 source) Outpatient Infusion Onset: 08-15-2023 Unclassified (1 source) Port/VAD Care Onset: 08-05-2023 Past or Other Problems Problem Classification Problem Date Documented Date Episodic/Chronic Diabetes mellitus without complication (1 source) Hyperglycemia; Translations: [Hyperglycemia, unspecified] Onset: 09-14-2019 09-14-2019 Episodic E Codes: Other specified and classifiable (1 source) Caught, crushed, jammed, or pinched between moving objects, initial encounter; Translations: [CAUGHT CRUSH/PINCH BTWN MOV OBJ INT] Onset: 10-14-2021 Episodic Fracture of upper limb (2 sources) Nondisplaced fracture of distal phalanx of left thumb, initial encounter for closed fracture; Translations: [NDSPLC FX DIST PHAL LT THMB INT EDWARDO] Onset: 10-14-2021 Resolved: 10-14-2021 Episodic Immunizations and screening for infectious disease (1 source) Encounter for immunization; Translations: [ENCOUNTER FOR IMMUNIZATION] Onset: 10-14-2021 Episodic Mood disorders (6 sources) Mood disorders Onset: 09-11-2019 Resolved: 03-03-2022 06-21-2022 Other aftercare (3 sources) Other manager long term care (current) drug therapy; Translations: [OTH SKILLED NURSING CURRENT DRUG THERAPY] Onset: 06-01-2022 Episodic Other circulatory disease (1 source) H/O: heart failure; Translations: [Personal history of other diseases of circulatory system] Resolved: 08-03-2022 Episodic Other connective tissue disease (1 source) Pain in left hand Onset: 10-14-2021 Resolved: 10-14-2021 Episodic Other connective tissue disease (7 sources) Cramp; Translations: [Cramp of limb] Onset: 10-27-2022 10-27-2022 Episodic Other diseases of veins and lymphatics (1 source) Venous insufficiency of leg; Translations: [Venous insufficiency (chronic) (peripheral)] Onset: 09-14-2019 09-14-2019 Episodic Other injuries and conditions due to external causes (3 sources) Unspecified injury of left wrist, hand and finger(s), initial encounter; Translations: [UNS INJ LT WRIST HAND FINGERS INIT] Onset: 10-12-2021 Episodic Other nutritional; endocrine; and metabolic disorders (7 sources) Obesity; Translations: [Obesity, unspecified] Onset: 10-27-2022 Resolved: 05-17-2023 10-27-2022 Chronic Residual codes; unclassified (1 source) Pain, unspecified; Translations: [Pain, unspecified] Onset: 05-17-2023 Episodic Screening and history of mental health and substance abuse codes (7 sources) Ex-smoker; Translations: [Personal history of tobacco use] Onset: 05-17-2023 05-17-2023 Episodic Comment on above: QUIT 04/2022; Superficial injury; contusion (2 sources) Contusion of left thumb with damage to nail, initial encounter; Translations: [CONTUS LT THUMB W/DAMAGE NAIL INIT] Onset: 10-14-2021 Resolved: 10-14-2021 Episodic Unclassified (5 sources) Onset: 12-01-2022 12-01-2022 Results Test Name Value Interpretation Reference Range Facility CBC AND AUTO DIFFon 10-31-19 Erythrocyte distribution width (RBC) [Ratio] 16.7 % High 11.5-15.0 [facility] Comment on above: Performed By: #### C KAYE PALMER, 6-3, 4-7 #### [facility] ([id number]) [address] [place] [id number] Hematocrit (Bld) [Volume fraction] 34.2 % Low 39-49 [facility] Comment on above: Performed By: #### C KAYE PALMER, 3015-3, 4-7 #### [facility] ([id number]) [address] [place] [address] [id number] Hemoglobin (Bld) [Mass/Vol] 11.6 g/dL Low 13.0-17.0 [facility] Comment on above: Performed By: #### C KAYE PALMER, 3015-3, 4-7 #### [facility] ([id number]) [address] [place] [address] [id number] Lymphocytes (Bld) [#/Vol] 2.4 10*3/uL Normal 1.0-3.5 [facility] Comment on above: Performed By: #### C SPENCER CMP, 3, 3023-08 #### [facility] ([id number]) [address] [place] [address] [phone] Lymphocytes/100 WBC (Bld) 58.0 % Normal [facility] Comment on above: Performed By: #### C SPENCER, CMP, 3015-04, 3023-08 #### [facility] ([id number]) [address] [place] [address] 53461 MCH (RBC) [Entitic mass] 30.5 pg Normal 27-34 [facility] Comment on above: Performed By: #### C SPENCER, CMP, 3015-04, 3023-08 #### [facility] ([id number]) [address] [place] [address] [phone] MCHC (RBC) [Mass/Vol] 33.8 g/dL Normal 32-36 [facility] Comment on above: Performed By: #### C SPENCER, CMP, 3015-04, 3023-08 #### [facility] ([id number]) [address] [place] [address] [id number] MCV (RBC) [Entitic vol] 90 fL Normal 80-100 [facility] Comment on above: Performed By: #### C BCA, CMP, 3015-04, 3023-08 #### [facility] ([id number]) [address] [place] [address] [id number] Metamyelocytes/100 WBC (Bld) 1.0 % Normal [facility] Comment on above: Performed By: #### C BCA, CMP, 3015-04, 3023-08 #### [facility] ([id number]) [address] [place] [address] 20168 Monocytes (Bld) [#/Vol] 0.1 10*3/uL Normal 0-0.9 [facility] Comment on above: Performed By: #### C SPENCER, CMP, 3, 3023-08 #### [facility] ([id number]) [address] [place] [address] 18743 Monocytes/100 WBC (Bld) 2.0 % Normal [facility] Comment on above: Performed By: #### C SPENCER, CMP, 3015-04, 3023-08 #### [facility] ([id number]) [address] [place] [address] 56670 MYELOCYTE 2.0 % Normal [facility] Comment on above: Performed By: #### C SPENCER, CMP, 3015-04, 3023-08 #### [facility] ([id number]) [address] [place] [address] 40628 Neutrophils (Bld) [#/Vol] 1.6 10*3/uL Normal 1.5-6.6 [facility] Comment on above: Performed By: #### C SPENCER, CMP, 3015-04, 3023-08 #### [facility] ([id number]) [address] [place] [address] 78486 NUCLEATED RBC 1.0 /100 WBC Normal 0.0-1.0 [facility] Comment on above: Performed By: #### C SPENCER, CMP, 3015-04, 3023-08 #### [facility] ([id number]) [address] [place] [address] 07489 OVALOCYTE 1+ Abnormal NONE [facility] Comment on above: Performed By: #### C SPENCER, CMP, 3015-04, 3023-08 #### [facility] ([id number]) [address] [place] [address] 78052 Platelet mean volume (Bld) [Entitic vol] 8.7 fL Normal 7-12 [facility] Comment on above: Performed By: #### C KAYE PALMER, 3015-04, 3023-08 #### [facility] ([id number]) [address] [place] [address] 62752 Platelets (Bld) [#/Vol] 159 10*3/uL Normal 150-450 [facility] Comment on above: Performed By: #### C KAYE PALMER, 3, 3023-08 #### [facility] ([id number]) [address] [place] [address] 94917 RBC COUNT 3.79 X10E12/L Low 4.10-5.70 [facility] Comment on above: Performed By: #### C KAYE PALMER, 3015-04, 3023-08 #### [facility] ([id number]) [address] [place] [address] 37854 SEG NEUTROPHIL 37.0 % Normal [facility] Comment on above: Performed By: #### Brock PALMER CMP, 3015-04, 7 #### [facility] ([id number]) [address] [place] [address] 92836 WBC (Bld) [#/Vol] 4.2 10*3/uL Normal 4.0-11.0 [facility] Comment on above: Performed By: #### C SPENCER CMP, 3015-04, 7 #### [facility] ([id number]) [address] [place] [address] 00795 CBC AND AUTO DIFFon 10-25-19 24 Eosinophils (Bld) [#/Vol] 0.0 10*3/uL Normal 0.0-0.4 [facility] Comment on above: Performed By: #### C SPENCER CMP, 3015-04, 3023-08 #### [facility] ([id number]) [address] [place] [address] 51995 Eosinophils/100 WBC (Bld) 1.0 % Normal [facility] Comment on above: Performed By: #### Brock PALMER CMP, 3, 7 #### [facility] ([id number]) [address] [place] [address] 52016 Erythrocyte distribution width (RBC) [Ratio] 16.1 % High 11.5-15.0 [facility] Comment on above: Performed By: #### C KAYE PALMER, 3015-04, 3023-08 #### [facility] ([id number]) [address] [place] [address] 44432 Hematocrit (Bld) [Volume fraction] 33.8 % Low 39-49 [facility] Comment on above: Performed By: #### Brock PALMER CMP, 3015-04, 3023-08 #### [facility] ([id number]) [address] [place] [address] 52067 Hemoglobin (Bld) [Mass/Vol] 11.4 g/dL Low 13.0-17.0 [facility] Comment on above: Performed By: #### Brock PALMER CMP, 3015-04, 7 #### [facility] ([id number]) [address] [place] [address] 11255 Lymphocytes (Bld) [#/Vol] 2.1 10*3/uL Normal 1.0-3.5 [facility] Comment on above: Performed By: #### Brock PALMER CMP, 3015-04, 3023-08 #### [facility] ([id number]) [address] [place] [address] 91350 Lymphocytes/100 WBC (Bld) 55.0 % Normal [facility] Comment on above: Performed By: #### Brock PALMER CMP, 3015-04, 3023-08 #### [facility] ([id number]) [address] [place] [address] 91369 MCH (RBC) [Entitic mass] 30.2 pg Normal 27-34 [facility] Comment on above: Performed By: #### C BCA, CMP, 3015-3, 3023-08 #### [facility] ([id number]) [address] [place] [address] 43799 MCHC (RBC) [Mass/Vol] 33.8 g/dL Normal 32-36 [facility] Comment on above: Performed By: #### C BCA, CMP, 3015-04, 3023-08 #### [facility] ([id number]) [address] [place] [address] 25759 MCV (RBC) [Entitic vol] 89 fL Normal 80-100 [facility] Comment on above: Performed By: #### C BCA, CMP, 3015-04, 3023-08 #### [facility] ([id number]) [address] [place] [address] 64794 Monocytes (Bld) [#/Vol] 0.1 10*3/uL Normal 0-0.9 [facility] Comment on above: Performed By: #### C BCA, CMP, 3015-04, 3023-08 #### [facility] ([id number]) [address] [place] [address] 36067 Monocytes/100 WBC (Bld) 2.0 % Normal [facility] Comment on above: Performed By: #### C BCA, CMP, 3015-04, 3023-08 #### [facility] ([id number]) [address] [place] [address] 84000 MYELOCYTE 2.0 % Normal [facility] Comment on above: Performed By: #### C BCA, CMP, 3015-04, 3023-08 #### [facility] ([id number]) [address] [place] [address] 63759 Neutrophils (Bld) [#/Vol] 1.5 10*3/uL Normal 1.5-6.6 [facility] Comment on above: Performed By: #### C KAYE PALMER, 3015-3, 3023-08 #### [facility] ([id number]) [address] [place] [address] 46393 NUCLEATED RBC 2.0 /100 WBC High 0.0-1.0 [facility] Comment on above: Performed By: #### C KAYE PALMER, 3, 3023-08 #### [facility] ([id number]) [address] [place] [address] 51219 Platelet mean volume (Bld) [Entitic vol] 8.6 fL Normal 7-12 [facility] Comment on above: Performed By: #### Brock PALMER CMP, 3015-04, 3023-08 #### [facility] ([id number]) [address] [place] [address] 78536 Platelets (Bld) [#/Vol] 209 10*3/uL Normal 150-450 [facility] Comment on above: Performed By: #### Brock PALMER CMP, 3015-04, 3023-08 #### [facility] ([id number]) [address] [place] [address] 93757 RBC COUNT 3.78 X10E12/L Low 4.10-5.70 [facility] Comment on above: Performed By: #### C SPENCER CMP, 3, 7 #### [facility] ([id number]) [address] [place] [address] 17262 RBC morphology finding Nom (Bld) REVIEWED Normal [facility] Comment on above: Performed By: #### Brock PALMER CMP, 3, 3023-08 #### [facility] ([id number]) [address] [place] [address] 81752 SEG NEUTROPHIL 40.0 % Normal [facility] Comment on above: Performed By: #### C BCA, CMP, 3015-3, 3023-7 #### [facility] ([id number]) [address] [place] [address] 08932 WBC (Bld) [#/Vol] 3.8 10*3/uL Low 4.0-11.0 [facility] Comment on above: Performed By: #### C BCA, CMP, 3, 7 #### [facility] ([id number]) [address] [place] [address] 84089 COMPREHENSIVE METABOLIC PANE Adam 10-25-2023 Albumin [Mass/Vol] 3.5 g/dL Normal 3.2-5.3 [facility] Comment on above: Performed By: #### C BCA, CMP, 3, 7 #### [facility] ([id number]) [address] [place] [address] 44553 ALP [Catalytic activity/Vol] 35 U/L Low 39-130 [facility] Comment on above: Performed By: #### C BCA, CMP, 3, 7 #### [facility] ([id number]) [address] [place] [address] 24244 ALT [Catalytic activity/Vol] 37 U/L Normal 0-40 [facility] Comment on above: Performed By: #### C BCA, CMP, 3015-3, 302-7 #### [facility] ([id number]) [address] [place] [address] 33433 Anion gap [Moles/Vol] 8 mmol/L Normal 5-15 [facility] Comment on above: Performed By: #### C BCA, CMP, 3015-3, 3023-7 #### [facility] ([id number]) [address] [place] [address] 09560 AST [Catalytic activity/Vol] 22 U/L Normal 0-41 [facility] Comment on above: Performed By: #### C BCA, CMP, 3, 7 #### [facility] ([id number]) [address] [place] [address] 98111 Bilirubin [Mass/Vol] 0.7 mg/dL Normal 0.3-1.2 [facility] Comment on above: Performed By: #### C BCA, CMP, 3, 3023-08 #### [facility] ([id number]) [address] [place] [address] 07608 Calcium [Mass/Vol] 8.7 mg/dL Normal 8.5-10.5 [facility] Comment on above: Performed By: #### C BCA, CMP, 3015-04, 3023-08 #### [facility] ([id number]) [address] [place] [address] 62983 Chloride [Moles/Vol] 103 mmol/L Normal 98-109 [facility] Comment on above: Performed By: #### C BCA, CMP, 3015-04, 3023-08 #### [facility] ([id number]) [address] [place] [address] 71340 CO2 [Moles/Vol] 26 mmol/L Normal 22-32 [facility] Comment on above: Performed By: #### C BCA, CMP, 3, 3023-08 #### [facility] ([id number]) [address] [place] [address] 10908 Creatinine [Mass/Vol] 0.97 mg/dL Normal 0.70-1.20 [facility] Comment on above: Result Comment: METH OD TRACEABLE TO IDMS STANDARD Performed By: #### C BCA, CMP, 3, 3023-08 #### [facility] ([id number]) [address] [place] [address] 37331 eGFR (CKD-EPI) NON-RACE DEPENDENT >90 Normal >59 [facility] Comment on above: Result Comment: Reported eGFR is based on the CKD-EPI 2020 equation that does not use a race coefficient. Performed By: #### C SPENCER CMP, 3015-04, 3023-08 #### [facility] ([id number]) [address] [place] [address] 98719 Glucose [Mass/Vol] 78 mg/dL Normal 65-99 [facility] Comment on above: Performed By: #### C SPENCER CMP, 3015-04, 3023-08 #### [facility] ([id number]) [address] [place] [address] 83018 Potassium [Moles/Vol] 3.5 mmol/L Normal 3.5-5.0 [facility] Comment on above: Performed By: #### C SPENCER, CMP, 3015-04, 3023-08 #### [facility] ([id number]) [address] [place] [address] 31471 Protein [Mass/Vol] 6.1 g/dL Normal 6.0-8.0 [facility] Comment on above: Performed By: #### C SPENCER CMP, 3015-04, 3023-08 #### [facility] ([id number]) [address] [place] [address] 57903 Sodium [Moles/Vol] 137 mmol/L Normal 134-146 [facility] Comment on above: Performed By: #### C SPENCER, CMP, 3015-04, 3023-08 #### [facility] ([id number]) [address] [place] [address] 40983 Urea nitrogen [Mass/Vol] 13 mg/dL Normal 5-23 [facility] Comment on above: Performed By: #### C BCA, CMP, 3015-04, 3023-08 #### [facility] ([id number]) [address] [place] [address] 95661 CBC AND AUTO DIFFon 10-17-19 24 ABSOLUTE BASOPHIL 0.0 X10E9/L Normal 0.0-0.2 [facility] Comment on above: Performed By: #### C SPENCER CMP, 3, 3023-08 #### [facility] ([id number]) [address] [place] [address] 22332 ABSOLUTE NEUTROPHIL 5.2 X10E9/L Normal 1.5-6.6 [facility] Comment on above: Performed By: #### C SPENCER CMP, 3, 3023-08 #### [facility] ([id number]) [address] [place] [address] 18748 Basophils/100 WBC (Bld) 0.2 % Normal [facility] Comment on above: Performed By: #### C SPENCER, CMP, 3, 3023-08 #### [facility] ([id number]) [address] [place] [address] 99238 Eosinophils (Bld) [#/Vol] 0.1 10*3/uL Normal 0.0-0.4 [facility] Comment on above: Performed By: #### C SPENCER CMP, 3, 3023-08 #### [facility] ([id number]) [address] [place] [address] 50758 Eosinophils/100 WBC (Bld) 1.1 % Normal [facility] Comment on above: Performed By: #### C SPENCER, CMP, 3, 3023-08 #### [facility] ([id number]) [address] [place] [address] 38933 Erythrocyte distribution width (RBC) [Ratio] 16.1 % High 11.5-15.0 [facility] Comment on above: Performed By: #### C SPENCER CMP, 3015-04, 3023-08 #### [facility] ([id number]) [address] [place] [address] 67266 Hematocrit (Bld) [Volume fraction] 35.7 % Low 39-49 [facility] Comment on above: Performed By: #### C SPENCER [facility], 3015-04, 3023-08 #### [facility] ([id number]) [address] [place] [address] 14402 Hemoglobin (Bld) [Mass/Vol] 12.0 g/dL Low 13.0-17.0 [facility] Comment on above: Performed By: #### C SPENCER [facility], 3015-04, 3023-08 #### [facility] ([id number]) [address] [place] [address] 50708 Lymphocytes (Bld) [#/Vol] 2.2 10*3/uL Normal 1.0-3.5 [facility] Comment on above: Performed By: #### C SPENCER [facility], 3015-04, 3023-08 #### [facility] ([id number]) [address] [place] [address] 85606 Lymphocytes/100 WBC (Bld) 28.2 % Normal [facility] Comment on above: Performed By: #### C SPENCER [facility], 3015-04, 3023-08 #### [facility] ([id number]) [address] [place] [address] 72788 MCH (RBC) [Entitic mass] 30.1 pg Normal 27-34 [facility] Comment on above: Performed By: #### C SPENCER CMP, 3015-04, 3023-08 #### [facility] ([id number]) [address] [place] [address] 69001 MCHC (RBC) [Mass/Vol] 33.7 g/dL Normal 32-36 [facility] Comment on above: Performed By: #### C SPENCER CMP, 3015-04, 3023-08 #### [facility] ([id number]) [address] [place] [address] 19730 MCV (RBC) [Entitic vol] 89 fL Normal 80-100 [facility] Comment on above: Performed By: #### C SPENCER CMP, 3015-04, 3023-08 #### [facility] ([id number]) [address] [place] [address] 26074 Monocytes (Bld) [#/Vol] 0.1 10*3/uL Normal 0-0.9 [facility] Comment on above: Performed By: #### C KAYE PALMER, 3015-04, 3023-08 #### [facility] ([id number]) [address] [place] [address] 70098 Monocytes/100 WBC (Bld) 1.8 % Normal [facility] Comment on above: Performed By: #### C SPENCER CMP, 3015-04, 3023-08 #### [facility] ([id number]) [address] [place] [address] 44075 Neutrophils/100 WBC (Bld) 68.7 % Normal [facility] Comment on above: Performed By: #### C SPENCER CMP, 3015-04, 3023-08 #### [facility] ([id number]) [address] [place] [address] 35584 Platelet mean volume (Bld) [Entitic vol] 8.9 fL Normal 7-12 [facility] Comment on above: Performed By: #### C SPENCER CMP, 3015-04, 3023-08 #### [facility] ([id number]) [address] [place] [address] 30030 Platelets (Bld) [#/Vol] 212 10*3/uL Normal 150-450 [facility] Comment on above: Performed By: #### C SPENCER CMP, 3, 3023-08 #### [facility] ([id number]) [address] [place] [address] 12265 RBC COUNT 4.00 X10E12/L Low 4.10-5.70 [facility] Comment on above: Performed By: #### C BCA, CMP, 3015-04, 3023-08 #### [facility] ([id number]) [address] [place] [address] 45014 WBC (Bld) [#/Vol] 7.6 10*3/uL Normal 4.0-11.0 [facility] Comment on above: Performed By: #### C BCA, CMP, 3015-04, 3023-08 #### [facility] ([id number]) [address] [place] [address] 34583 COMPREHENSIVE METABOLIC PANE [facility] 10-17-2023 Albumin [Mass/Vol] 3.6 g/dL Normal 3.2-5.3 [facility] Comment on above: Performed By: #### C BCA, CMP, 3015-04, 3023-08 #### [facility] ([id number]) [address] [place] [address] 81990 ALP [Catalytic activity/Vol] 34 U/L Low 39-130 [facility] Comment on above: Performed By: #### C BCA, CMP, 3015-04, 7 #### [facility] ([id number]) [address] [place] [address] 99875 ALT [Catalytic activity/Vol] 31 U/L Normal 0-40 [facility] Comment on above: Performed By: #### C BCA, CMP, 3015-04, 7 #### [facility] ([id number]) [address] [place] [address] 87460 Anion gap [Moles/Vol] 10 mmol/L Normal 5-15 [facility] Comment on above: Performed By: #### C BCA, CMP, 3, 7 #### [facility] ([id number]) [address] [place] [address] 38424 AST [Catalytic activity/Vol] 21 U/L Normal 0-41 [facility] Comment on above: Performed By: #### C BCA, CMP, 3, 3023-08 #### [facility] ([id number]) [address] [place] [address] 79203 Bilirubin [Mass/Vol] 0.8 mg/dL Normal 0.3-1.2 [facility] Comment on above: Performed By: #### C BCA, CMP, 3015-04, 3023-08 #### [facility] ([id number]) [address] [place] [address] 19979 Calcium [Mass/Vol] 8.6 mg/dL Normal 8.5-10.5 [facility] Comment on above: Performed By: #### C BCA, CMP, 3015-04, 7 #### [facility] ([id number]) [address] [place] [address] 63159 Chloride [Moles/Vol] 103 mmol/L Normal 98-109 [facility] Comment on above: Performed By: #### C BCA, CMP, 3015-04, 7 #### [facility] ([id number]) [address] [place] [address] 24655 CO2 [Moles/Vol] 26 mmol/L Normal 22-32 [facility] Comment on above: Performed By: #### C BCA, CMP, 3015-04, 7 #### [facility] ([id number]) [address] [place] [address] 95180 Creatinine [Mass/Vol] 1.13 mg/dL Normal 0.70-1.20 [facility] Comment on above: Result Comment: METH OD TRACEABLE TO IDMS STANDARD Performed By: #### C KAYE PALMER, 3015-04, 7 #### [facility] ([id number]) [address] [place] [address] 31654 GFR/1.73 sq M.predicted among non-blacks MDRD (S/P/Bld) [Vol rate/Area] 82 mL/min/{1.73_m2} Normal >59 [facility] Comment on above: Result Comment: Reported eGFR is based on the CKD-EPI 2020 equation that does not use a race coefficient. Performed By: #### C KAYE PALMER, 3015-04, 7 #### [facility] ([id number]) [address] [place] [address] 25597 Glucose [Mass/Vol] 88 mg/dL Normal 65-99 [facility] Comment on above: Performed By: #### C KAYE PALMER, 3015-04, 3023-08 #### [facility] ([id number]) [address] [place] [address] 38303 Potassium [Moles/Vol] 3.7 mmol/L Normal 3.5-5.0 [facility] Comment on above: Performed By: #### C KAYE PALMER, 3015-04, 7 #### [facility] ([id number]) [address] [place] [address] 29718 Protein [Mass/Vol] 6.4 g/dL Normal 6.0-8.0 [facility] Comment on above: Performed By: #### C KAYE PALMER, 3015-04, 7 #### [facility] ([id number]) [address] [place] [address] 52691 Sodium [Moles/Vol] 139 mmol/L Normal 134-146 [facility] Comment on above: Performed By: #### C KAYE PALMER, 3015-04, 3023-08 #### [facility] ([id number]) [address] [place] [address] 91428 Urea nitrogen [Mass/Vol] 15 mg/dL Normal 5-23 [facility] Comment on above: Performed By: #### C BCA, CMP, 3015-3, 7 #### [facility] ([id number]) [address] [place] [address] 05861 CBC AND AUTO DIFFon 10-10-19 24 ABSOLUTE BASOPHIL 0.0 X10E9/L Normal 0.0-0.2 [facility] Comment on above: Performed By: #### C BCA, CMP, 3015-04, 3023-08 #### [facility] ([id number]) [address] [place] [address] 70625 ABSOLUTE NEUTROPHIL 3.4 X10E9/L Normal 1.5-6.6 [facility] Comment on above: Performed By: #### C BCA, CMP, 3015-04, 3023-08 #### [facility] ([id number]) [address] [place] [address] 56564 Basophils/100 WBC (Bld) 0.7 % Normal [facility] Comment on above: Performed By: #### C BCA, CMP, 3015-04, 3023-08 #### [facility] ([id number]) [address] [place] [address] 62197 Eosinophils (Bld) [#/Vol] 0.2 10*3/uL Normal 0.0-0.4 [facility] Comment on above: Performed By: #### C BCA, CMP, 3015-04, 3023-08 #### [facility] ([id number]) [address] [place] [address] 73261 Eosinophils/100 WBC (Bld) 2.8 % Normal [facility] Comment on above: Performed By: #### C BCA, CMP, 3015-04, 3023-08 #### [facility] ([id number]) [address] [place] [address] 91163 Erythrocyte distribution width (RBC) [Ratio] 16.3 % High 11.5-15.0 [facility] Comment on above: Performed By: #### C KAYE PALMER, 3015-04, 3023-08 #### [facility] ([id number]) [address] [place] [address] 42647 Hematocrit (Bld) [Volume fraction] 37.2 % Low 39-49 [facility] Comment on above: Performed By: #### C KAYE PALMER, 3015-04, 3023-08 #### [facility] ([id number]) [address] [place] [address] 82553 Hemoglobin (Bld) [Mass/Vol] 12.5 g/dL Low 13.0-17.0 [facility] Comment on above: Performed By: #### C KAYE PALMER, 3015-04, 3023-08 #### [facility] ([id number]) [address] [place] [address] 95074 Lymphocytes (Bld) [#/Vol] 1.7 10*3/uL Normal 1.0-3.5 [facility] Comment on above: Performed By: #### C KAYE PALMER, 3015-04, 3023-08 #### [facility] ([id number]) [address] [place] [address] 28908 Lymphocytes/100 WBC (Bld) 29.4 % Normal [facility] Comment on above: Performed By: #### C KAYE PALMER, 3015-04, 3023-08 #### [facility] ([id number]) [address] [place] [address] 91996 MCH (RBC) [Entitic mass] 30.1 pg Normal 27-34 [facility] Comment on above: Performed By: #### C KAYE PALMER, 3015-04, 3023-08 #### [facility] ([id number]) [address] [place] [address] 67434 MCHC (RBC) [Mass/Vol] 33.6 g/dL Normal 32-36 [facility] Comment on above: Performed By: #### C BCA, CMP, 3015-04, 3023-08 #### [facility] ([id number]) [address] [place] [address] 64867 MCV (RBC) [Entitic vol] 90 fL Normal 80-100 [facility] Comment on above: Performed By: #### C SPENCER, CMP, 3015-04, 3023-08 #### [facility] ([id number]) [address] [place] [address] 27508 Monocytes (Bld) [#/Vol] 0.5 10*3/uL Normal 0-0.9 [facility] Comment on above: Performed By: #### C SPENCER, CMP, 3015-04, 3023-08 #### [facility] ([id number]) [address] [place] [address] 65908 Monocytes/100 WBC (Bld) 8.0 % Normal [facility] Comment on above: Performed By: #### C SPENCER, CMP, 3015-04, 3023-08 #### [facility] ([id number]) [address] [place] [address] 50514 Neutrophils/100 WBC (Bld) 59.1 % Normal [facility] Comment on above: Performed By: #### C SPENCER, CMP, 3015-04, 3023-08 #### [facility] ([id number]) [address] [place] [address] 23538 Platelet mean volume (Bld) [Entitic vol] 7.8 fL Normal 7-12 [facility] Comment on above: Performed By: #### C BCA, CMP, 3015-04, 3023-08 #### [facility] ([id number]) [address] [place] [address] 30806 Platelets (Bld) [#/Vol] 253 10*3/uL Normal 150-450 [facility] Comment on above: Performed By: #### C BCA, CMP, 3, 7 #### [facility] ([id number]) [address] [place] [address] 62335 RBC COUNT 4.14 X10E12/L Normal 4.10-5.70 [facility] Comment on above: Performed By: #### C BCA, CMP, 3015-04, 3023-08 #### [facility] ([id number]) [address] [place] [address] 41321 WBC (Bld) [#/Vol] 5.7 10*3/uL Normal 4.0-11.0 [facility] Comment on above: Performed By: #### C BCA, CMP, 3015-04, 7 #### [facility] ([id number]) [address] [place] [address] 83496 COMPREHENSIVE METABOLIC PANE Adam 10-10-2023 Albumin [Mass/Vol] 4.0 g/dL Normal 3.2-5.3 [facility] Comment on above: Performed By: #### C BCA, CMP, 3015-04, 7 #### [facility] ([id number]) [address] [place] [address] 88220 ALP [Catalytic activity/Vol] 38 U/L Low 39-130 [facility] Comment on above: Performed By: #### C BCA, CMP, 3, 7 #### [facility] ([id number]) [address] [place] [address] 90921 ALT [Catalytic activity/Vol] 23 U/L Normal 0-40 [facility] Comment on above: Performed By: #### C BCA, CMP, 3, 3023-08 #### [facility] ([id number]) [address] [place] [address] 41921 Anion gap [Moles/Vol] 8 mmol/L Normal 5-15 [facility] Comment on above: Performed By: #### C BCA, CMP, 3, 3023-08 #### [facility] ([id number]) [address] [place] [address] 15812 AST [Catalytic activity/Vol] 24 U/L Normal 0-41 [facility] Comment on above: Performed By: #### C BCA, CMP, 3015-04, 3023-08 #### [facility] ([id number]) [address] [place] [address] 79033 Bilirubin [Mass/Vol] 0.4 mg/dL Normal 0.3-1.2 [facility] Comment on above: Performed By: #### C BCA, CMP, 3015-04, 3023-08 #### [facility] ([id number]) [address] [place] [address] 46145 Calcium [Mass/Vol] 9.3 mg/dL Normal 8.5-10.5 [facility] Comment on above: Performed By: #### C BCA, CMP, 3015-04, 3023-08 #### [facility] ([id number]) [address] [place] [address] 01126 Chloride [Moles/Vol] 106 mmol/L Normal 98-109 [facility] Comment on above: Performed By: #### C BCA, CMP, 3015-04, 3023-08 #### [facility] ([id number]) [address] [place] [address] 12656 CO2 [Moles/Vol] 24 mmol/L Normal 22-32 [facility] Comment on above: Performed By: #### C BCA, CMP, 3015-04, 7 #### [facility] ([id number]) [address] [place] [address] 51368 Creatinine [Mass/Vol] 0.98 mg/dL Normal 0.70-1.20 [facility] Comment on above: Result Comment: METH OD TRACEABLE TO IDMS STANDARD Performed By: #### C KAYE PALMER, 3015-04, 3023-08 #### [facility] ([id number]) [address] [place] [address] 94843 eGFR (CKD-EPI) NON-RACE DEPENDENT >90 Normal >59 [facility] Comment on above: Result Comment: Reported eGFR is based on the CKD-EPI 2020 equation that does not use a race coefficient. Performed By: #### C KAYE PALMER, 3015-04, 3023-08 #### [facility] ([id number]) [address] [place] [address] 79699 Glucose [Mass/Vol] 140 mg/dL High 65-99 [facility] Comment on above: Performed By: #### C KAYE PALMER, 3015-04, 3023-08 #### [facility] ([id number]) [address] [place] [address] 73694 Potassium [Moles/Vol] 4.0 mmol/L Normal 3.5-5.0 [facility] Comment on above: Performed By: #### C SPENCER CMP, 3015-04, 3023-08 #### [facility] ([id number]) [address] [place] [address] 13451 Protein [Mass/Vol] 7.5 g/dL Normal 6.0-8.0 [facility] Comment on above: Performed By: #### C SPENCER CMP, 3015-04, 3023-08 #### [facility] ([id number]) [address] [place] [address] 76015 Sodium [Moles/Vol] 138 mmol/L Normal 134-146 [facility] Comment on above: Performed By: #### C SPENCER, CMP, 3, 7 #### [facility] ([id number]) [address] [place] [address] 98885 Urea nitrogen [Mass/Vol] 9 mg/dL Normal 5-23 [facility] Comment on above: Performed By: #### C BCA, CMP, 3, 3023-08 #### [facility] ([id number]) [address] [place] [address] 96805 CBC AND AUTO DIFFon 10-03-19 24 ABSOLUTE BASOPHIL 0.1 X10E9/L Normal 0.0-0.2 [facility] Comment on above: Performed By: #### C SPENCER, CMP, 3015-04, 3023-08 #### [facility] ([id number]) [address] [place] [address] 49841 ABSOLUTE NEUTROPHIL 5.8 X10E9/L Normal 1.5-6.6 [facility] Comment on above: Performed By: #### C BCA, CMP, 3015-04, 7 #### [facility] ([id number]) [address] [place] [address] 98093 Basophils/100 WBC (Bld) 0.9 % Normal [facility] Comment on above: Performed By: #### C BCA, CMP, 3015-04, 7 #### [facility] ([id number]) [address] [place] [address] 13806 Eosinophils (Bld) [#/Vol] 0.2 10*3/uL Normal 0.0-0.4 [facility] Comment on above: Performed By: #### C BCA, CMP, 3, 3023- #### [facility] ([id number]) [address] [place] [address] 74275 Eosinophils/100 WBC (Bld) 2.4 % Normal [facility] Comment on above: Performed By: #### C KAYE PALMER, 3015-04, 3023-08 #### [facility] ([id number]) [address] [place] [address] 16899 Erythrocyte distribution width (RBC) [Ratio] 17.1 % High 11.5-15.0 [facility] Comment on above: Performed By: #### C SPENCER CMP, 3, 3023-08 #### [facility] ([id number]) [address] [place] [address] 03363 Hematocrit (Bld) [Volume fraction] 34.3 % Low 39-49 [facility] Comment on above: Performed By: #### C KAYE PALMER, 3015-04, 3023-08 #### [facility] ([id number]) [address] [place] [address] 40801 Hemoglobin (Bld) [Mass/Vol] 11.5 g/dL Low 13.0-17.0 [facility] Comment on above: Performed By: #### C SPENCER CMP, 3015-04, 3023-08 #### [facility] ([id number]) [address] [place] [address] 16138 Lymphocytes (Bld) [#/Vol] 1.2 10*3/uL Normal 1.0-3.5 [facility] Comment on above: Performed By: #### C SPENCER, CMP, 3015-04, 3023-08 #### [facility] ([id number]) [address] [place] [address] 48065 Lymphocytes/100 WBC (Bld) 14.6 % Normal [facility] Comment on above: Performed By: #### C SPENCER CMP, 3015-04, 3023-08 #### [facility] ([id number]) [address] [place] [address] 25789 MCH (RBC) [Entitic mass] 30.2 pg Normal 27-34 [facility] Comment on above: Performed By: #### C KAYE PALMER, 3015-04, 3023-08 #### [facility] ([id number]) [address] [place] [address] 34051 MCHC (RBC) [Mass/Vol] 33.6 g/dL Normal 32-36 [facility] Comment on above: Performed By: #### C KAYE PALMER, 3015-04, 3023-08 #### [facility] ([id number]) [address] [place] [address] 57871 MCV (RBC) [Entitic vol] 90 fL Normal 80-100 [facility] Comment on above: Performed By: #### C KAYE PALMER, 3015-04, 3023-08 #### [facility] ([id number]) [address] [place] [address] 24534 Monocytes (Bld) [#/Vol] 1.0 10*3/uL High 0-0.9 [facility] Comment on above: Performed By: #### Brock PALMER CMP, 3015-04, 3023-08 #### [facility] ([id number]) [address] [place] [address] 45010 Monocytes/100 WBC (Bld) 11.7 % Normal [facility] Comment on above: Performed By: #### C KAYE PALMER, 3015-04, 3023-08 #### [facility] ([id number]) [address] [place] [address] 77982 Neutrophils/100 WBC (Bld) 70.4 % Normal [facility] Comment on above: Performed By: #### C KAYE PALMER, 3015-04, 3023-08 #### [facility] ([id number]) [address] [place] [address] 12453 Platelet mean volume (Bld) [Entitic vol] 8.2 fL Normal 7-12 [facility] Comment on above: Performed By: #### C SPENCER CMP, 3, 3023-7 #### [facility] ([id number]) [address] [place] [address] 91642 Platelets (Bld) [#/Vol] 225 10*3/uL Normal 150-450 [facility] Comment on above: Performed By: #### C SPENCER, CMP, 3, 3023-7 #### [facility] ([id number]) [address] [place] [address] 64421 RBC COUNT 3.81 X10E12/L Low 4.10-5.70 [facility] Comment on above: Performed By: #### C SPENCER, CMP, 3015-04, 7 #### [facility] ([id number]) [address] [place] [address] 56300 WBC (Bld) [#/Vol] 8.2 10*3/uL Normal 4.0-11.0 [facility] Comment on above: Performed By: #### C SPENCER, CMP, 3015-04, 7 #### [facility] ([id number]) [address] [place] [address] 51127 COMPREHENSIVE METABOLIC PANE Adam 10-03-2023 Albumin [Mass/Vol] 3.7 g/dL Normal 3.2-5.3 [facility] Comment on above: Performed By: #### C SPENCER, CMP, 3, 3023-7 #### [facility] ([id number]) [address] [place] [address] 58981 ALP [Catalytic activity/Vol] 35 U/L Low 39-130 [facility] Comment on above: Performed By: #### C BCA, CMP, 3, 3023-7 #### [facility] ([id number]) [address] [place] [address] 79115 ALT [Catalytic activity/Vol] 20 U/L Normal 0-40 [facility] Comment on above: Performed By: #### C BCA, CMP, 3015-3, 3023-7 #### [facility] ([id number]) [address] [place] [address] 24777 Anion gap [Moles/Vol] 5 mmol/L Normal 5-15 [facility] Comment on above: Performed By: #### C BCA, CMP, 3, 7 #### [facility] ([id number]) [address] [place] [address] 79426 AST [Catalytic activity/Vol] 21 U/L Normal 0-41 [facility] Comment on above: Performed By: #### C BCA, CMP, 3, 3023-08 #### [facility] ([id number]) [address] [place] [address] 98681 Bilirubin [Mass/Vol] 1.5 mg/dL High 0.3-1.2 [facility] Comment on above: Performed By: #### C BCA, CMP, 3015-04, 7 #### [facility] ([id number]) [address] [place] [address] 86116 Calcium [Mass/Vol] 8.9 mg/dL Normal 8.5-10.5 [facility] Comment on above: Performed By: #### C BCA, CMP, 3, 3023-08 #### [facility] ([id number]) [address] [place] [address] 61297 Chloride [Moles/Vol] 103 mmol/L Normal 98-109 [facility] Comment on above: Performed By: #### C BCA, CMP, 3, 3023-7 #### [facility] ([id number]) [address] [place] [address] [place] [address] CO2 [Moles/Vol] 23 mmol/L Normal 22-32 [facility] Comment on above: Performed By: #### C KAYE PALMER, 3, 7 #### [facility] ([id number]) [address] [place] [address] 85813 Creatinine [Mass/Vol] 1.01 mg/dL Normal 0.70-1.20 [facility] Comment on above: Result Comment: METH OD TRACEABLE TO IDMS STANDARD Performed By: #### C KAYE PALMER, 3015-04, 7 #### [facility] ([id number]) [address] [place] [address] 97108 eGFR (CKD-EPI) NON-RACE DEPENDENT >90 Normal >59 [facility] Comment on above: Result Comment: Reported eGFR is based on the CKD-EPI 2020 equation that does not use a race coefficient. Performed By: #### C KAYE PALMER, 3015-04, 3023-08 #### [facility] ([id number]) [address] [place] [address] 71404 Glucose [Mass/Vol] 110 mg/dL High 65-99 [facility] Comment on above: Performed By: #### C KAYE PALMER, 3015-04, 7 #### [facility] ([id number]) [address] [place] [address] 01993 Potassium [Moles/Vol] 4.1 mmol/L Normal 3.5-5.0 [facility] Comment on above: Performed By: #### C KAYE PALMER, 3015-04, 7 #### [facility] ([id number]) [address] [place] [address] 81965 Protein [Mass/Vol] 7.5 g/dL Normal 6.0-8.0 [facility] Comment on above: Performed By: #### C KAYE PALMER, 3015-04, 3023-08 #### [facility] ([id number]) [address] [place] [address] Sodium [Moles/Vol] 131 mmol/L Low 134-146 [facility] Comment on above: Performed By: #### C BCA, CMP, 3015-, 3023-08 #### [facility] ([id number]) [address] [place] [address] Urea nitrogen [Mass/Vol] 9 mg/dL Normal 5-23 [facility] Comment on above: Performed By: #### C BCA, CMP, 3015-04, 3023-08 #### [facility] ([id number]) [address] [place] [address] CT ABDOMEN AND PELVIS W CONT on 09-21-2023 CT ABDOMEN AND PELVIS W CONT CT ABDOMEN AND PELVIS W CONT CLINICAL HISTORY: Assess treatment response. Staging/restaging. History of non-small cell lung cancer. TECHNIQUE/PROCEDURE: CT abdomen and pelvis with intravenous contrast. All CT scans at this facility use dose modulation, iterative reconstruction, and/or weight based dosing when appropriate to reduce radiation dose to as low as reasonably achievable COMPARISON: CT abdomen pelvis 07/29/2023. FINDINGS: CT chest performed concurrently but reported separately. Decreasing size of the posterior mediastinal nodes. Noncirrhotic liver morphology. No suspicious hepatic lesions. Contracted gallbladder. Pancreas, spleen, adrenals, kidneys, ureters, and urinary bladder are unremarkable. No pelvic masses. Large and small bowel are normal in caliber. Terminal ileum is unremarkable. Appendix is normal. No free intraperitoneal gas. No abnormal fluid collection. No enlarged lymph nodes by size criteria. No abdominal aorta is nonaneurysmal. IVC is right-sided. Portal vein is patent. Abdominal wall shows no acute abnormality. No acute or aggressive osseous lesion. Mild multilevel degenerative changes of the thoracolumbar spine. IMPRESSION: * No evidence of metastatic disease within the abdomen or pelvis. * CT chest findings reported separately. 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 Staging/restaging. Assess treatment response. TECHNIQUE: CT chest with intravenous contrast. All CT scans at this facility use dose modulation, iterative reconstruction, and/or weight based dosing when appropriate to reduce radiation dose to as low as reasonably achievable. COMPARISON: CT chest 07/29/2023. FINDINGS: Thyroid gland is unchanged with multiple subcentimeter hypoattenuating thyroid nodules predominantly within the left thyroid lobe. No supraclavicular adenopathy. Thoracic aorta is nonaneurysmal. Conventional branching of the aortic arch. Heart size is within normal limits. No pericardial effusion. Main pulmonary trunk size is normal. Significant interval decrease in size in the multiple multiple mediastinal nodes. For example, interval reduction in size of the superior right pretracheal node now measuring approximately 1.5 x 2.2 cm, previously 2.8 x 3.6 cm, with decreased compression of the adjacent SVC. Significant interval reduction in size of the ill-defined right perihilar mass and of the left hilar lymphadenopathy. Trachea and central airways are similar to prior examination. Improved aeration of the right lower lobe anterior segment bronchi. Persistent partial opacification of the right upper lobe posterior subsegmental bronchi. No pleural effusion. No pneumothorax. Improving bilateral pulmonary masses and ill-defined pulmonary nodular densities. Improving scattered bilateral groundglass opacities. Focal scarring within the right upper lobe and right lung base are similar to prior examination. No new or enlarging pulmonary nodules/masses. Chest wall soft tissues show no acute abnormality. Partially visualized left-sided chest port with the tip terminating in the mid SVC. No acute or aggressive osseous lesion. Healed right posterior eighth rib fracture. Mild multilevel degenerative changes of the thoracic spine. CT abdomen findings reported separately. Decreasing nodes within the posterior mediastinum. IMPRESSION: * Interval decrease in size of the bilateral pulmonary nodules/masses and intrathoracic lymphadenopathy consistent with treatment response. Finalized by Raj Franks MD on 09/21/2023 4:04 PM Normal [facility] CBC AND AUTO DIFFon 09-12-19 ABSOLUTE BASOPHIL 0.0 X10E9/L Normal 0.0-0.2 [facility] Comment on above: Performed By: #### C BCA, CMP ####[facility] ([id number])[address] [place] [address] 36353 Band form neutrophils/100 WBC (Bld) 13.0 % Normal [facility] Comment on above: Performed By: #### C BCA, CMP ####[facility] ([id number])[address] [place] [address] 75445 Basophils/100 WBC (Bld) 1.0 % Normal [facility] Comment on above: Performed By: #### C SPENCER, CMP ####[facility] ([id number])[address] [place] [address] 69132 Erythrocyte distribution width (RBC) [Ratio] 13.4 % Normal 11.5-15.0 [facility] Comment on above: Performed By: #### C SPENCER, CMP ####[facility] ([id number])[address] [place] [address] 91365 Hematocrit (Bld) [Volume fraction] 32.1 % Low 39-49 [facility] Comment on above: Performed By: #### C BCA, CMP ####[facility] ([id number])[address] [place] [address] 20447 Hemoglobin (Bld) [Mass/Vol] 11.1 g/dL Low 13.0-17.0 [facility] Comment on above: Performed By: #### C SPENCER, CMP ####[facility] ([id number])[address] [place] [address] 24504 LYMPHOCYTE, ATYPICAL 2.0 % Normal [facility] Comment on above: Performed By: #### C BCA, CMP ####[facility] ([id number])[address] [place] [address] 73194 Lymphocytes (Bld) [#/Vol] 1.5 10*3/uL Normal 1.0-3.5 [facility] Comment on above: Performed By: #### C BCA, CMP ####[facility] ([id number])[address] [place] [address] 23001 Lymphocytes/100 WBC (Bld) 35.0 % Normal [facility] Comment on above: Performed By: #### C BCA, CMP ####[facility] ([id number])[address] [place] [address] 48704 MCH (RBC) [Entitic mass] 30.1 pg Normal 27-34 [facility] Comment on above: Performed By: #### C BCA, CMP ####[facility] ([id number])[address] [place] [address] 12072 MCHC (RBC) [Mass/Vol] 34.7 g/dL Normal 32-36 [facility] Comment on above: Performed By: #### C BCA, CMP ####[facility] ([id number])[address] [place] [address] 82177 MCV (RBC) [Entitic vol] 87 fL Normal 80-100 [facility] Comment on above: Performed By: #### C BCA, CMP ####[facility] ([id number])[address] [place] [address] 44883 Metamyelocytes/100 WBC (Bld) 2.0 % Normal [facility] Comment on above: Performed By: #### C BCA, CMP ####[facility] ([id number])[address] [place] [address] 61494 Monocytes (Bld) [#/Vol] 0.0 10*3/uL Normal 0-0.9 [facility] Comment on above: Performed By: #### C BCA, CMP ####[facility] ([id number])[address] [place] [address] 12863 Monocytes/100 WBC (Bld) 1.0 % Normal [facility] Comment on above: Performed By: #### C SPENCER, CMP ####[facility] ([id number])[address] [place] [address], [place] [address] MYELOCYTE 1.0 % Normal [facility] Comment on above: Performed By: #### C SPENCER, CMP ####[facility] ([id number])[address] [place] [address] 35526 Neutrophils (Bld) [#/Vol] 2.4 10*3/uL Normal 1.5-6.6 [facility] Comment on above: Performed By: #### C SPENCER, CMP ####[facility] ([id number])[address] [place] [address] [place] [address] Platelet mean volume (Bld) [Entitic vol] 8.0 fL Normal 7-12 [facility] Comment on above: Performed By: #### C SPENCER, CMP ####[facility] ([id number])[address] [place] [address] 53384 Platelets (Bld) [#/Vol] 162 10*3/uL Normal 150-450 [facility] Comment on above: Performed By: #### C SPENCER, CMP ####[facility] ([id number])[address] [place] [address] [place] [address] RBC COUNT 3.69 X10E12/L Low 4.10-5.70 [facility] Comment on above: Performed By: #### C SPENCER, CMP ####[facility] ([id number])[address] [place] [address] 84460 RBC morphology finding Nom (Bld) NORMAL Normal [facility] Comment on above: Performed By: #### C SPENCER, CMP ####[facility] ([id number])[address] [place] [address] [place] [address] SEG NEUTROPHIL 45.0 % Normal [facility] Comment on above: Performed By: #### C BCA, CMP ####[facility] ([id number])[address] [place] [address] 37586 WBC (Bld) [#/Vol] 4.0 10*3/uL Normal 4.0-11.0 [facility] Comment on above: Performed By: #### C BCA, CMP ####[facility] ([id number])[address] [place] [address] 75614 COMPREHENSIVE METABOLIC PANE Adam 09-12-2023 Albumin [Mass/Vol] 3.5 g/dL Normal 3.2-5.3 [facility] Comment on above: Performed By: #### C BCA, CMP ####[facility] ([id number])[address] [place] [address] 13292 ALP [Catalytic activity/Vol] 34 U/L Low 39-130 [facility] Comment on above: Performed By: #### C BCA, CMP ####[facility] ([id number])[address] [place] [address] ALT [Catalytic activity/Vol] 41 U/L High 0-40 [facility] Comment on above: Performed By: #### C BCA, CMP ####[facility] ([id number])[address] [place] [address] [place] [address] Anion gap [Moles/Vol] 8 mmol/L Normal 5-15 [facility] Comment on above: Performed By: #### C BCA, CMP ####[facility] ([id number])[address] [place] [address] [id number] AST [Catalytic activity/Vol] 22 U/L Normal 0-41 [facility] Comment on above: Performed By: #### C BCA, CMP ####[facility] ([id number])[address], [place] [address] Bilirubin [Mass/Vol] 1.6 mg/dL High 0.3-1.2 [facility] Comment on above: Performed By: #### C BCA, CMP ####[facility] ([id number])[address] [place] [place] [address] [place] [address] Calcium [Mass/Vol] 8.4 mg/dL Low 8.5-10.5 [facility] Comment on above: Performed By: #### C BCA, CMP ####[facility] ([id number])[address] [place] [address] 42692 Chloride [Moles/Vol] 99 mmol/L Normal 98-109 [facility] Comment on above: Performed By: #### C BCA, CMP ####[facility] ([id number])[address] [place] [address] 78730 CO2 [Moles/Vol] 24 mmol/L Normal 22-32 [facility] Comment on above: Performed By: #### C BCA, CMP ####[facility] ([id number])[address] [place] [address] 37962 Creatinine [Mass/Vol] 1.01 mg/dL Normal 0.70-1.20 [facility] Comment on above: Result Comment: METH OD TRACEABLE TO IDMS STANDARD Performed By: #### C BCA, CMP ####[facility] ([id number])[address] [place] [address] [place] [address] eGFR (CKD-EPI) NON-RACE DEPENDENT >90 Normal >59 [facility] Comment on above: Result Comment: Reported eGFR is based on the CKD-EPI 2020 equation that does not use a race coefficient. Performed By: #### C BCA, CMP ####[facility] ([id number])[address] [place] [address] [place] [address] Glucose [Mass/Vol] 97 mg/dL Normal 65-99 [facility] Comment on above: Performed By: #### C BCA, CMP ####[facility] ([id number])[address] [place] [address] [place] [address] Potassium [Moles/Vol] 3.4 mmol/L Low 3.5-5.0 [facility] Comment on above: Performed By: #### C BCA, CMP ####[facility] ([id number])[address] [place] [address] [place] [address] Protein [Mass/Vol] 6.4 g/dL Normal 6.0-8.0 [facility] Comment on above: Performed By: #### C BCA, CMP ####[facility] ([id number])[address] [place] [address] 10684 Sodium [Moles/Vol] 131 mmol/L Low 134-146 [facility] Comment on above: Performed By: #### C SPENCER, CMP ####[facility] ([id number])[address] [place] [address] 06843 Urea nitrogen [Mass/Vol] 9 mg/dL Normal 5-23 [facility] Comment on above: Performed By: #### C BCA, CMP ####[facility] ([id number])[address] [place] [address] [place] [address] CBC AND AUTO DIFFon 07-15-20 24 ABSOLUTE BASOPHIL 0.0 X10E9/L Normal 0.0-0.2 [facility] Comment on above: Performed By: #### C BCA, CMP ####[facility] ([id number])[address] [place] [address] 84612 Basophils/100 WBC (Bld) 1.0 % Normal [facility] Comment on above: Performed By: #### C BCA, CMP ####[facility] ([id number])[address] [place] [address] 52544 Eosinophils (Bld) [#/Vol] 0.0 10*3/uL Normal 0.0-0.4 [facility] Comment on above: Performed By: #### C SPENCER, CMP ####[facility] ([id number])[address] [place] [address] 41263 Eosinophils/100 WBC (Bld) 1.0 % Normal [facility] Comment on above: Performed By: #### C SPENCER, CMP ####[facility] ([id number])[address] [place] [address] 18349 Erythrocyte distribution width (RBC) [Ratio] 12.8 % Normal 11.5-15.0 [facility] Comment on above: Performed By: #### C SPENCER, CMP ####[facility] ([id number])[address] [place] [address] 51185 Hematocrit (Bld) [Volume fraction] 36.6 % Low 39-49 [facility] Comment on above: Performed By: #### C SPENCER, CMP ####[facility] ([id number])[address] [place] [address] 52075 Hemoglobin (Bld) [Mass/Vol] 12.6 g/dL Low 13.0-17.0 [facility] Comment on above: Performed By: #### C SPENCER, CMP ####[facility] ([id number])[address] [place] [address] 20995 LYMPHOCYTE, ATYPICAL 1.0 % Normal [facility] Comment on above: Performed By: #### C SPENCER, CMP ####[facility] ([id number])[address] [place] [address] 38004 Lymphocytes (Bld) [#/Vol] 2.0 10*3/uL Normal 1.0-3.5 [facility] Comment on above: Performed By: #### C SPENCER, CMP ####[facility] ([id number])[address] [place] [address] Lymphocytes/100 WBC (Bld) 47.0 % Normal [facility] Comment on above: Performed By: #### C BCA, CMP ####[facility] ([id number])[address] [place] [address] 25666 MCH (RBC) [Entitic mass] 30.1 pg Normal 27-34 [facility] Comment on above: Performed By: #### C BCA, CMP ####[facility] ([id number])[address] [place] [address] 43273 MCHC (RBC) [Mass/Vol] 34.5 g/dL Normal 32-36 [facility] Comment on above: Performed By: #### C BCA, CMP ####[facility] ([id number])[address] [place] [address] 34944 MCV (RBC) [Entitic vol] 87 fL Normal 80-100 [facility] Comment on above: Performed By: #### C SPENCER, CMP ####[facility] ([id number])[address] [place] [address] 23860 Monocytes (Bld) [#/Vol] 0.1 10*3/uL Normal 0-0.9 [facility] Comment on above: Performed By: #### C BCA, CMP ####[facility] ([id number])[address] [place] [address] 87486 Monocytes/100 WBC (Bld) 3.0 % Normal [facility] Comment on above: Performed By: #### C BCA, CMP ####[facility] ([id number])[address] [place] [address] 47035 MYELOCYTE 3.0 % Normal [facility] Comment on above: Performed By: #### C BCA, CMP ####[facility] ([id number])[address] [place] [address] 37482 Neutrophils (Bld) [#/Vol] 1.7 10*3/uL Normal 1.5-6.6 [facility] Comment on above: Performed By: #### C SPENCER, CMP ####[facility] ([id number])[address] [place] [address] 23539 Platelet mean volume (Bld) [Entitic vol] 7.8 fL Normal 7-12 [facility] Comment on above: Performed By: #### C SPENCER, CMP ####[facility] ([id number])[address] [place] [address] 66031 Platelets (Bld) [#/Vol] 229 10*3/uL Normal 150-450 [facility] Comment on above: Performed By: #### C SPENCER, CMP ####[facility] ([id number])[address] [place] [address] 57755 RBC COUNT 4.19 X10E12/L Normal 4.10-5.70 [facility] Comment on above: Performed By: #### C SPENCER, CMP ####[facility] ([id number])[address] [place] [address] 33036 RBC morphology finding Nom (Bld) REVIEWED Normal [facility] Comment on above: Performed By: #### C SPENCER, CMP ####[facility] ([id number])[address] [place] [address] 59557 SEG NEUTROPHIL 44.0 % Normal [facility] Comment on above: Performed By: #### C SPENCER, CMP ####[facility] ([id number])[address] [place] [address] 61586 WBC (Bld) [#/Vol] 3.9 10*3/uL Low 4.0-11.0 [facility] Comment on above: Performed By: #### C SPENCER, CMP ####[facility] ([id number])[address] [place] [address], [place] [address] COMPREHENSIVE METABOLIC PANE Adam 09-05-2023 Albumin [Mass/Vol] 3.6 g/dL Normal 3.2-5.3 [facility] Comment on above: Performed By: #### C BCA, CMP ####[facility] ([id number])[address] [place] [address] [place] [address] ALP [Catalytic activity/Vol] 39 U/L Normal 39-130 [facility] Comment on above: Performed By: #### C BCA, CMP ####[facility] ([id number])[address] [place] [address] 72760 ALT [Catalytic activity/Vol] 34 U/L Normal 0-40 [facility] Comment on above: Performed By: #### C BCA, CMP ####[facility] ([id number])[address] [place] [address] [place] [address] Anion gap [Moles/Vol] 6 mmol/L Normal 5-15 [facility] Comment on above: Performed By: #### C BCA, CMP ####[facility] ([id number])[address] [place] [address] [place] [address] AST [Catalytic activity/Vol] 20 U/L Normal 0-41 [facility] Comment on above: Performed By: #### C BCA, CMP ####[facility] ([id number])[address] [place] [address] [place] [address] Bilirubin [Mass/Vol] 0.9 mg/dL Normal 0.3-1.2 [facility] Comment on above: Performed By: #### C BCA, CMP ####[facility] ([id number])[address] [place] [address] [place] [address] Calcium [Mass/Vol] 8.5 mg/dL Normal 8.5-10.5 [facility] Comment on above: Performed By: #### C BCA, CMP ####[facility] ([id number])[address] [place] [address] 85041 Chloride [Moles/Vol] 103 mmol/L Normal 98-109 [facility] Comment on above: Performed By: #### C BCA, CMP ####[facility] ([id number])[address] [place] [address] 93077 CO2 [Moles/Vol] 26 mmol/L Normal 22-32 [facility] Comment on above: Performed By: #### C BCA, CMP ####[facility] ([id number])[address] [place] [address] 07606 Creatinine [Mass/Vol] 0.87 mg/dL Normal 0.70-1.20 [facility] Comment on above: Result Comment: METH OD TRACEABLE TO IDMS STANDARD Performed By: #### C BCA, CMP ####[facility] ([id number])[address] [place] [address] [place] [address] eGFR (CKD-EPI) NON-RACE DEPENDENT >90 Normal >59 [facility] Comment on above: Result Comment: Reported eGFR is based on the CKD-EPI 1 equation that does not use a race coefficient. Performed By: #### C BCA, CMP ####[facility] ([id number])[address] [place] [address] 03686 Glucose [Mass/Vol] 103 mg/dL High 65-99 [facility] Comment on above: Performed By: #### C BCA, CMP ####[facility] ([id number])[address] [place] [address] 57686 Potassium [Moles/Vol] 3.8 mmol/L Normal 3.5-5.0 [facility] Comment on above: Performed By: #### C BCA, CMP ####[facility] ([id number])[address], [place] [address] Protein [Mass/Vol] 6.4 g/dL Normal 6.0-8.0 [facility] Comment on above: Performed By: #### C BCA, CMP ####[facility] ([id number])[address] [place] [address] 97542 Sodium [Moles/Vol] 135 mmol/L Normal 134-146 [facility] Comment on above: Performed By: #### C BCA, CMP ####[facility] ([id number])[address] [place] [address] 76593 Urea nitrogen [Mass/Vol] 8 mg/dL Normal 5-23 [facility] Comment on above: Performed By: #### C SPENCER, CMP ####[facility] ([id number])[address] [place] [address] 44722 CBC AND AUTO DIFFon 08-29-19 24 ABSOLUTE BASOPHIL 0.0 X10E9/L Normal 0.0-0.2 [facility] Comment on above: Performed By: #### C SPENCER, CMP ####[facility] ([id number])[address] [place] [address] 38150 ABSOLUTE NEUTROPHIL 2.5 X10E9/L Normal 1.5-6.6 [facility] Comment on above: Performed By: #### C BCA, CMP ####[facility] ([id number])[address] [place] [address] [place] [address] Basophils/100 WBC (Bld) 0.3 % Normal [facility] Comment on above: Performed By: #### C BCA, CMP ####[facility] ([id number])[address] [place] [address] 30345 Eosinophils (Bld) [#/Vol] 0.0 10*3/uL Normal 0.0-0.4 [facility] Comment on above: Performed By: #### C BCA, CMP ####[facility] ([id number])[address] [place] [address] [place] [address] Eosinophils/100 WBC (Bld) 1.0 % Normal [facility] Comment on above: Performed By: #### C SPENCER, CMP ####[facility] ([id number])[address] [place] [address] [place] [address] Erythrocyte distribution width (RBC) [Ratio] 13.0 % Normal 11.5-15.0 [facility] Comment on above: Performed By: #### C BCA, CMP ####[facility] ([id number])[address] [place] [address] 71397 Hematocrit (Bld) [Volume fraction] 37.6 % Low 39-49 [facility] Comment on above: Performed By: #### C SPENCER, CMP ####[facility] ([id number])[address] [place] [address] 90342 Hemoglobin (Bld) [Mass/Vol] 12.9 g/dL Low 13.0-17.0 [facility] Comment on above: Performed By: #### C SPENCER, CMP ####[facility] ([id number])[address] [place] [address] 70474 Lymphocytes (Bld) [#/Vol] 1.2 10*3/uL Normal 1.0-3.5 [facility] Comment on above: Performed By: #### C BCA, CMP ####[facility] ([id number])[address] [place] [address] 98199 Lymphocytes/100 WBC (Bld) 30.5 % Normal [facility] Comment on above: Performed By: #### C BCA, CMP ####[facility] ([id number])[address] [place] [address] [place] [address] MCH (RBC) [Entitic mass] 29.9 pg Normal 27-34 [facility] Comment on above: Performed By: #### C BCA, CMP ####[facility] ([id number])[address] [place] [address], [place] [address] MCHC (RBC) [Mass/Vol] 34.2 g/dL Normal 32-36 [facility] Comment on above: Performed By: #### C SPENCER, CMP ####[facility] ([id number])[address] [place] [address] 90381 MCV (RBC) [Entitic vol] 88 fL Normal 80-100 [facility] Comment on above: Performed By: #### C SPENCER, CMP ####[facility] ([id number])[address] [place] [address] 55279 Monocytes (Bld) [#/Vol] 0.2 10*3/uL Normal 0-0.9 [facility] Comment on above: Performed By: #### C SPENCER, CMP ####[facility] ([id number])[address] [place] [address] 02121 Monocytes/100 WBC (Bld) 4.3 % Normal [facility] Comment on above: Performed By: #### C SPENCER, CMP ####[facility] ([id number])[address] [place] [address] [place] [address] Neutrophils/100 WBC (Bld) 63.9 % Normal [facility] Comment on above: Performed By: #### C SPENCER, CMP ####[facility] ([id number])[address] [place] [address] [place] [address] Platelet mean volume (Bld) [Entitic vol] 8.5 fL Normal 7-12 [facility] Comment on above: Performed By: #### C SPENCER, CMP ####[facility] ([id number])[address] [place] [address] [place] [address] Platelets (Bld) [#/Vol] 249 10*3/uL Normal 150-450 [facility] Comment on above: Performed By: #### C BCA, CMP ####[facility] ([id number])[address] [place] [address] 44707 RBC COUNT 4.29 X10E12/L Normal 4.10-5.70 [facility] Comment on above: Performed By: #### C BCA, CMP ####[facility] ([id number])[address] [place] [address] 92839 WBC (Bld) [#/Vol] 3.9 10*3/uL Low 4.0-11.0 [facility] Comment on above: Performed By: #### C BCA, CMP ####[facility] ([id number])[address] [place] [address] 33386 COMPREHENSIVE METABOLIC PANE Adam 08-29-2023 Albumin [Mass/Vol] 3.6 g/dL Normal 3.2-5.3 [facility] Comment on above: Performed By: #### C BCA, CMP ####[facility] ([id number])[address] [place] [address] 20831 ALP [Catalytic activity/Vol] 37 U/L Low 39-130 [facility] Comment on above: Performed By: #### C BCA, CMP ####[facility] ([id number])[address] [place] [address] 43667 ALT [Catalytic activity/Vol] 29 U/L Normal 0-40 [facility] Comment on above: Performed By: #### C BCA, CMP ####[facility] ([id number])[address] [place] [address] 27404 Anion gap [Moles/Vol] 9 mmol/L Normal 5-15 [facility] Comment on above: Performed By: #### C BCA, CMP ####[facility] ([id number])[address], [place] [address] AST [Catalytic activity/Vol] 17 U/L Normal 0-41 [facility] Comment on above: Performed By: #### C BCA, CMP ####[facility] ([id number])[address] [place] [address] 60194 Bilirubin [Mass/Vol] 1.0 mg/dL Normal 0.3-1.2 [facility] Comment on above: Performed By: #### C BCA, CMP ####[facility] ([id number])[address] [place] [address] 61430 Calcium [Mass/Vol] 8.9 mg/dL Normal 8.5-10.5 [facility] Comment on above: Performed By: #### C BCA, CMP ####[facility] ([id number])[address] [place] [address] 15168 Chloride [Moles/Vol] 103 mmol/L Normal 98-109 [facility] Comment on above: Performed By: #### C BCA, CMP ####[facility] ([id number])[address] [place] [address] 10299 CO2 [Moles/Vol] 24 mmol/L Normal 22-32 [facility] Comment on above: Performed By: #### C BCA, CMP ####[facility] ([id number])[address] [place] [address] 44444 Creatinine [Mass/Vol] 0.88 mg/dL Normal 0.70-1.20 [facility] Comment on above: Result Comment: METH OD TRACEABLE TO IDMS STANDARD Performed By: #### C BCA, CMP ####[facility] ([id number])[address] [place] [address] [place] [address] eGFR (CKD-EPI) NON-RACE DEPENDENT >90 Normal >59 [facility] Comment on above: Result Comment: Reported eGFR is based on the CKD-EPI 2020 equation that does not use a race coefficient. Performed By: #### C BCA, CMP ####[facility] ([id number])[address] [place] [address], [place] [address] Glucose [Mass/Vol] 106 mg/dL High 65-99 [facility] Comment on above: Performed By: #### C BCA, CMP ####[facility] ([id number])[address] [place] [address] [place] [address] Potassium [Moles/Vol] 4.1 mmol/L Normal 3.5-5.0 [facility] Comment on above: Performed By: #### C BCA, CMP ####[facility] ([id number])[address] [place] [address] [place] [address] Protein [Mass/Vol] 6.8 g/dL Normal 6.0-8.0 [facility] Comment on above: Performed By: #### C BCA, CMP ####[facility] ([id number])[address] [place] [address] [place] [address] Sodium [Moles/Vol] 136 mmol/L Normal 134-146 [facility] Comment on above: Performed By: #### C BCA, CMP ####[facility] ([id number])[address] [place] [address] [place] [address] Urea nitrogen [Mass/Vol] 9 mg/dL Normal 5-23 [facility] Comment on above: Performed By: #### C BCA, CMP ####[facility] ([id number])[address] [place] [address] [place] [address] CBC AND AUTO DIFFon 08-22-19 24 ABSOLUTE BASOPHIL 0.0 X10E9/L Normal 0.0-0.2 [facility] Comment on above: Performed By: #### C BCA, CMP ####[facility] ([id number])[address] [place] [address] [place] [address] ABSOLUTE NEUTROPHIL 7.0 X10E9/L High 1.5-6.6 [facility] Comment on above: Performed By: #### C BCA, CMP ####[facility] ([id number])[address] [place] [address] 63985 Basophils/100 WBC (Bld) 0.3 % Normal [facility] Comment on above: Performed By: #### C BCA, CMP ####[facility] ([id number])[address] [place] [address] 65490 Eosinophils (Bld) [#/Vol] 0.1 10*3/uL Normal 0.0-0.4 [facility] Comment on above: Performed By: #### C BCA, CMP ####[facility] ([id number])[address] [place] [address] 56722 Eosinophils/100 WBC (Bld) 1.3 % Normal [facility] Comment on above: Performed By: #### C BCA, CMP ####[facility] ([id number])[address] [place] [address] 52690 Erythrocyte distribution width (RBC) [Ratio] 12.6 % Normal 11.5-15.0 [facility] Comment on above: Performed By: #### C BCA, CMP ####[facility] ([id number])[address] [place] [address] 02112 Hematocrit (Bld) [Volume fraction] 37.5 % Low 39-49 [facility] Comment on above: Performed By: #### C BCA, CMP ####[facility] ([id number])[address] [place] [address] 53343 Hemoglobin (Bld) [Mass/Vol] 13.0 g/dL Normal 13.0-17.0 [facility] Comment on above: Performed By: #### C BCA, CMP ####[facility] ([id number])[address] [place] [address] 14788 Lymphocytes (Bld) [#/Vol] 1.2 10*3/uL Normal 1.0-3.5 [facility] Comment on above: Performed By: #### C BCA, CMP ####[facility] ([id number])[address] [place] [address] 53545 Lymphocytes/100 WBC (Bld) 14.0 % Normal [facility] Comment on above: Performed By: #### C BCA, CMP ####[facility] ([id number])[address] [place] [address] [id number] MCH (RBC) [Entitic mass] 30.2 pg Normal 27-34 [facility] Comment on above: Performed By: #### C BCA, CMP ####[facility] ([id number])[address] [place] [address] 28863 MCHC (RBC) [Mass/Vol] 34.6 g/dL Normal 32-36 [facility] Comment on above: Performed By: #### C BCA, CMP ####[facility] ([id number])[address] [place] [address] 40583 MCV (RBC) [Entitic vol] 87 fL Normal 80-100 [facility] Comment on above: Performed By: #### C BCA, CMP ####[facility] ([id number])[address] [place] [address] 90736 Monocytes (Bld) [#/Vol] 0.3 10*3/uL Normal 0-0.9 [facility] Comment on above: Performed By: #### C BCA, CMP ####[facility] ([id number])[address] [place] [address] 41341 Monocytes/100 WBC (Bld) 3.7 % Normal [facility] Comment on above: Performed By: #### C BCA, CMP ####[facility] ([id number])[address] [place] [address] [id number] Neutrophils/100 WBC (Bld) 80.7 % Normal [facility] Comment on above: Performed By: #### C SPENCER, CMP ####[facility] ([id number])[address] [place] [address] 04094 Platelet mean volume (Bld) [Entitic vol] 8.9 fL Normal 7-12 [facility] Comment on above: Performed By: #### C SPENCER, CMP ####[facility] ([id number])[address] [place] [address] 23299 Platelets (Bld) [#/Vol] 200 10*3/uL Normal 150-450 [facility] Comment on above: Performed By: #### C SPENCER, CMP ####[facility] ([id number])[address] [place] [address] 07628 RBC COUNT 4.30 X10E12/L Normal 4.10-5.70 [facility] Comment on above: Performed By: #### C SPENCER, CMP ####[facility] ([id number])[address] [place] [address] 16744 WBC (Bld) [#/Vol] 8.7 10*3/uL Normal 4.0-11.0 [facility] Comment on above: Performed By: #### C SPENCER, CMP ####[facility] ([id number])[address] [place] [address] 18152 COMPREHENSIVE METABOLIC PANE [facility] 08-22-2023 Albumin [Mass/Vol] 3.5 g/dL Normal 3.2-5.3 [facility] Comment on above: Performed By: #### C BCA, CMP ####[facility] ([id number])[address] [place] [address] 33250 ALP [Catalytic activity/Vol] 36 U/L Low 39-130 [facility] Comment on above: Performed By: #### C BCA, CMP ####[facility] ([id number])[address] [place] [address], [place] [address] ALT [Catalytic activity/Vol] 24 U/L Normal 0-40 [facility] Comment on above: Performed By: #### C BCA, CMP ####[facility] ([id number])[address] [place] [address], [place] [address] Anion gap [Moles/Vol] 9 mmol/L Normal 5-15 [facility] Comment on above: Performed By: #### C BCA, CMP ####[facility] ([id number])[address] [place] [address], [place] [address] AST [Catalytic activity/Vol] 19 U/L Normal 0-41 [facility] Comment on above: Performed By: #### C BCA, CMP ####[facility] ([id number])[address] [place] [address], [place] [address] Bilirubin [Mass/Vol] 1.9 mg/dL High 0.3-1.2 [facility] Comment on above: Performed By: #### C BCA, CMP ####[facility] ([id number])[address] [place] [address], [place] [address] Calcium [Mass/Vol] 8.3 mg/dL Low 8.5-10.5 [facility] Comment on above: Performed By: #### C BCA, CMP ####[facility] ([id number])[address] [place] [address], [place] [address] Chloride [Moles/Vol] 97 mmol/L Low 98-109 [facility] Comment on above: Performed By: #### C BCA, CMP ####[facility] ([id number])[address] [place] [address], [place] [address] CO2 [Moles/Vol] 23 mmol/L Normal 22-32 [facility] Comment on above: Performed By: #### C BCA, CMP ####[facility] ([id number])[address] [place] [address] 79097 Creatinine [Mass/Vol] 0.99 mg/dL Normal 0.70-1.20 [facility] Comment on above: Result Comment: METH OD TRACEABLE TO IDMS STANDARD Performed By: #### C BCA, CMP ####[facility] ([id number])[address] [place] [address] 17040 eGFR (CKD-EPI) NON-RACE DEPENDENT >90 Normal >59 [facility] Comment on above: Result Comment: Reported eGFR is based on the CKD-EPI 2020 equation that does not use a race coefficient. Performed By: #### C BCA, CMP ####[facility] ([id number])[address] [place] [address] 35915 Glucose [Mass/Vol] 123 mg/dL High 65-99 [facility] Comment on above: Performed By: #### C BCA, CMP ####[facility] ([id number])[address] [place] [address] 36291 Potassium [Moles/Vol] 3.6 mmol/L Normal 3.5-5.0 [facility] Comment on above: Performed By: #### C BCA, CMP ####[facility] ([id number])[address] [place] [address] 81339 Protein [Mass/Vol] 6.9 g/dL Normal 6.0-8.0 [facility] Comment on above: Performed By: #### C BCA, CMP ####[facility] ([id number])[address] [place] [address] 16069 Sodium [Moles/Vol] 129 mmol/L Low 134-146 [facility] Comment on above: Performed By: #### C BCA, CMP ####[facility] ([id number])[address] [place] [address] 96952 Urea nitrogen [Mass/Vol] 10 mg/dL Normal 5-23 [facility] Comment on above: Performed By: #### C BCA, CMP ####[facility] ([id number])[address] [place] [address] 37459 CBC AND AUTO DIFFon 08-14- 24 ABSOLUTE BASOPHIL 0.1 X10E9/L Normal 0.0-0.2 [facility] Comment on above: Performed By: #### C MP, CBCA #### [facility] ([id number]) [address] [place] [address] 75367 ABSOLUTE NEUTROPHIL 6.5 X10E9/L Normal 1.5-6.6 [facility] Comment on above: Performed By: #### C MP, CBCA #### [facility] ([id number]) [address] [place] [address] 21494 Basophils/100 WBC (Bld) 0.7 % Normal [facility] Comment on above: Performed By: #### C MP, CBCA #### [facility] ([id number]) [address] [place] [address] 47026 Eosinophils (Bld) [#/Vol] 0.2 10*3/uL Normal 0.0-0.4 [facility] Comment on above: Performed By: #### C MP, CBCA #### [facility] ([id number]) [address] [place] [address] 08793 Eosinophils/100 WBC (Bld) 2.8 % Normal [facility] Comment on above: Performed By: #### C MP, CBCA #### [facility] ([id number]) [address] [place] [address] 86354 Erythrocyte distribution width (RBC) [Ratio] 12.7 % Normal 11.5-15.0 [facility] Comment on above: Performed By: #### C MP, CBCA #### [facility] ([id number]) [address] [place] [address] 34943 Hematocrit (Bld) [Volume fraction] 41.8 % Normal 39-49 [facility] Comment on above: Performed By: #### C MP, CBCA #### [facility] ([id number]) [address] [place] [address] 60920 Hemoglobin (Bld) [Mass/Vol] 15.0 g/dL Normal 13.0-17.0 [facility] Comment on above: Performed By: #### C MP, CBCA #### [facility] ([id number]) [address] [place] [address] 02950 Lymphocytes (Bld) [#/Vol] 1.2 10*3/uL Normal 1.0-3.5 [facility] Comment on above: Performed By: #### C MP, CBCA #### [facility] ([id number]) [address] [place] [address] 27580 Lymphocytes/100 WBC (Bld) 13.8 % Normal [facility] Comment on above: Performed By: #### C MP, CBCA #### [facility] ([id number]) [address] [place] [address] 81729 MCH (RBC) [Entitic mass] 30.6 pg Normal 27-34 [facility] Comment on above: Performed By: #### C MP, CBCA #### [facility] ([id number]) [address] [place] [address] 08992 MCHC (RBC) [Mass/Vol] 35.8 g/dL Normal 32-36 [facility] Comment on above: Performed By: #### C MP, CBCA #### [facility] ([id number]) [address] [place] [address] 14787 MCV (RBC) [Entitic vol] 86 fL Normal 80-100 [facility] Comment on above: Performed By: #### C MP, CBCA #### [facility] ([id number]) [address] [place] [address] 54973 Monocytes (Bld) [#/Vol] 0.6 10*3/uL Normal 0-0.9 [facility] Comment on above: Performed By: #### C MP, CBCA #### [facility] ([id number]) [address] [place] [address] 79192 Monocytes/100 WBC (Bld) 7.1 % Normal [facility] Comment on above: Performed By: #### C MP, CBCA #### [facility] ([id number]) [address] [place] [address] 79884 Neutrophils/100 WBC (Bld) 75.6 % Normal [facility] Comment on above: Performed By: #### C MP, CBCA #### [facility] ([id number]) [address] [place] [address] 06425 Platelet mean volume (Bld) [Entitic vol] 8.8 fL Normal 7-12 [facility] Comment on above: Performed By: #### C MP, CBCA #### [facility] ([id number]) [address] [place] [address] 83629 Platelets (Bld) [#/Vol] 234 10*3/uL Normal 150-450 [facility] Comment on above: Performed By: #### C MP, CBCA #### [facility] ([id number]) [address] [place] [address] 91935 RBC COUNT 4.89 X10E12/L Normal 4.10-5.70 [facility] Comment on above: Performed By: #### C MP, CBCA #### [facility] ([id number]) [address] [place] [address] WBC (Bld) [#/Vol] 8.6 10*3/uL Normal 4.0-11.0 [facility] Comment on above: Performed By: #### C RADHA, CBCA #### [facility] ([id number]) [address] [place] [address] 88973 COMPREHENSIVE METABOLIC PANE [facility] 08-15-2023 Albumin [Mass/Vol] 4.1 g/dL Normal 3.2-5.3 [facility] Comment on above: Performed By: #### C RADHA, CBCA #### [facility] ([id number]) [address] [place] [address] 27056 ALP [Catalytic activity/Vol] 44 U/L Normal 39-130 [facility] Comment on above: Performed By: #### C RADHA, CBCA #### [facility] ([id number]) [address] [place] [address] 10276 ALT [Catalytic activity/Vol] 23 U/L Normal 0-40 [facility] Comment on above: Performed By: #### C RADHA, CBCA #### [facility] ([id number]) [address] [place] [address] 91691 Anion gap [Moles/Vol] 8 mmol/L Normal 5-15 [facility] Comment on above: Performed By: #### C RADHA, CBCA #### [facility] ([id number]) [address] [place] [address] 70656 AST [Catalytic activity/Vol] 26 U/L Normal 0-41 [facility] Comment on above: Performed By: #### C RADHA, CBCA #### [facility] ([id number]) [address] [place] [address] 75820 Bilirubin [Mass/Vol] 1.4 mg/dL High 0.3-1.2 [facility] Comment on above: Performed By: #### C BYRON GARCIA #### [facility] ([id number]) [address] [place] [address] 27240 Calcium [Mass/Vol] 10.4 mg/dL Normal 8.5-10.5 [facility] Comment on above: Performed By: #### C BYRON GARCIA #### [facility] ([id number]) [address] [place] [address] 11915 Chloride [Moles/Vol] 99 mmol/L Normal 98-109 [facility] Comment on above: Performed By: #### C BYRON GARCIA #### [facility] ([id number]) [address] [place] [address] 40723 CO2 [Moles/Vol] 25 mmol/L Normal 22-32 [facility] Comment on above: Performed By: #### C BYRON GARCIA #### [facility] ([id number]) [address] [place] [address] 02163 Creatinine [Mass/Vol] 1.09 mg/dL Normal 0.70-1.20 [facility] Comment on above: Result Comment: METH OD TRACEABLE TO IDMS STANDARD Performed By: #### C BYRON GARCIA #### [facility] ([id number]) [address] [place] [address] 36243 GFR/1.73 sq M.predicted among non-blacks MDRD (S/P/Bld) [Vol rate/Area] 85 mL/min/{1.73_m2} Normal >59 [facility] Comment on above: Result Comment: Reported eGFR is based on the CKD-EPI 1 equation that does not use a race coefficient. Performed By: #### C BYRON GARCIA #### [facility] ([id number]) [address] [place] [address] 51857 Glucose [Mass/Vol] 124 mg/dL High 65-99 [facility] Comment on above: Performed By: #### C BYRON GARCIA #### [facility] ([id number]) [address] [place] [address] 87809 Potassium [Moles/Vol] 3.7 mmol/L Normal 3.5-5.0 [facility] Comment on above: Performed By: #### C MP, CBCA #### [facility] ([id number]) [address] [place] [address] 05785 Protein [Mass/Vol] 7.9 g/dL Normal 6.0-8.0 [facility] Comment on above: Performed By: #### C MP, CBCA #### [facility] ([id number]) [address] [place] [address] 25696 Sodium [Moles/Vol] 132 mmol/L Low 134-146 [facility] Comment on above: Performed By: #### C RADHA, CBCA #### [facility] ([id number]) [address] [place] [address] 04444 Urea nitrogen [Mass/Vol] 12 mg/dL Normal 5-23 [facility] Comment on above: Performed By: #### C RADHA, CBCA #### [facility] ([id number]) [address] [place] [address] 16370 MR BRAIN W WO CONTon 024 MR BRAIN W WO CONT MR BRAIN W WO CONT HISTORY: A 43-year-old male with the history of 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 Complaining of the new onset of severe headaches, dizziness and vomiting. Intracranial metastatic disease is suspected. TECHNIQUE: Multiplanar and multisequence MRI examination of brain is performed without and with intravenous contrast administration. COMPARISON: None available . FINDINGS: The ventricular system is normal in size and configuration. There is normal differentiation of burdick and white matters. Diffusion-weighted study demonstrates no evidence of restricted diffusion to suggest acute or subacute age of infarction. There is no evidence of intracranial mass, hemorrhage or acute pathology. The cerebellum and brainstem are unremarkable. No mass effect, midline shift of the structures or extra-axial fluid collections are noted. Postcontrast examination reveals no abnormal meningeal or parenchymal enhancement. No evidence of intracranial metastatic disease. Both distal internal carotid and vertebrobasilar arteries are patent. Dural venous sinuses are patent. Visualized paranasal sinuses and mastoid air cells are clear. IMPRESSION: * No evidence of intracranial metastatic disease. * No evidence of intracranial mass, abnormal enhancing lesion or acute pathology. Finalized by Cachorro Rivera MD on 08/08/2023 1:16 PM Normal [facility] CBC AND AUTO DIFFon 08-05-19 24 ABSOLUTE BASOPHIL 0.1 X10E9/L Normal 0.0-0.2 [facility] Comment on above: Performed By: #### C KAYE PALMER, 3015-04, 7 #### [facility] ([id number]) [address] [place] [address] 14299 ABSOLUTE NEUTROPHIL 5.3 X10E9/L Normal 1.5-6.6 [facility] Comment on above: Performed By: #### C KAYE PALMER, 3015-04, 3023-08 #### [facility] ([id number]) [address] [place] [address] 23392 Basophils/100 WBC (Bld) 0.7 % Normal [facility] Comment on above: Performed By: #### C KAYE PALMER, 3015-04, 3023-08 #### [facility] ([id number]) [address] [place] [address] 34091 Eosinophils (Bld) [#/Vol] 0.2 10*3/uL Normal 0.0-0.4 [facility] Comment on above: Performed By: #### C SPENCER CMP, 3, 7 #### [facility] ([id number]) [address] [place] [address] 47125 Eosinophils/100 WBC (Bld) 2.9 % Normal [facility] Comment on above: Performed By: #### C KAYE PALMER, 3015-04, 3023-08 #### [facility] ([id number]) [address] [place] [address] 19754 Erythrocyte distribution width (RBC) [Ratio] 12.7 % Normal 11.5-15.0 [facility] Comment on above: Performed By: #### C KAYE PALMER, 3015-04, 3023-08 #### [facility] ([id number]) [address] [place] [address] 62474 Hematocrit (Bld) [Volume fraction] 41.5 % Normal 39-49 [facility] Comment on above: Performed By: #### C KAYE PALMER, 3015-04, 3023-08 #### [facility] ([id number]) [address] [place] [address] 03698 Hemoglobin (Bld) [Mass/Vol] 14.3 g/dL Normal 13.0-17.0 [facility] Comment on above: Performed By: #### C KAYE PALMER, 3015-04, 3023-08 #### [facility] ([id number]) [address] [place] [address] 57686 Lymphocytes (Bld) [#/Vol] 1.6 10*3/uL Normal 1.0-3.5 [facility] Comment on above: Performed By: #### Brock PALMER CMP, 3015-04, 3023-08 #### [facility] ([id number]) [address] [place] [address] 76376 Lymphocytes/100 WBC (Bld) 20.6 % Normal [facility] Comment on above: Performed By: #### C KAYE PALMER, 3015-04, 7 #### [facility] ([id number]) [address] [place] [address] 74170 MCH (RBC) [Entitic mass] 30.2 pg Normal 27-34 [facility] Comment on above: Performed By: #### C KAYE PALMER, 3015-04, 3023-08 #### [facility] ([id number]) [address] [place] [address] 74306 MCHC (RBC) [Mass/Vol] 34.4 g/dL Normal 32-36 [facility] Comment on above: Performed By: #### C KAYE PALMER, 3015-04, 3023-08 #### [facility] ([id number]) [address] [place] [address] 08248 MCV (RBC) [Entitic vol] 88 fL Normal 80-100 [facility] Comment on above: Performed By: #### C KAYE PALMER, 3015-04, 3023-08 #### [facility] ([id number]) [address] [place] [address] 03330 Monocytes (Bld) [#/Vol] 0.6 10*3/uL Normal 0-0.9 [facility] Comment on above: Performed By: #### C KAYE PALMER, 3015-04, 3023-08 #### [facility] ([id number]) [address] [place] [address] 57073 Monocytes/100 WBC (Bld) 7.4 % Normal [facility] Comment on above: Performed By: #### C KAYE PALMER, 3015-04, 3023-08 #### [facility] ([id number]) [address] [place] [address] 83732 Neutrophils/100 WBC (Bld) 68.4 % Normal [facility] Comment on above: Performed By: #### C SPENCER CMP, 3015-04, 3023-08 #### [facility] ([id number]) [address] [place] [address] 40463 Platelet mean volume (Bld) [Entitic vol] 8.5 fL Normal 7-12 [facility] Comment on above: Performed By: #### C SPENCER, CMP, 3, 7 #### [facility] ([id number]) [address] [place] [address] 32822 Platelets (Bld) [#/Vol] 239 10*3/uL Normal 150-450 [facility] Comment on above: Performed By: #### C BCA, CMP, 3, 3023-08 #### [facility] ([id number]) [address] [place] [address] 96971 RBC COUNT 4.72 X10E12/L Normal 4.10-5.70 [facility] Comment on above: Performed By: #### C BCA, CMP, 3015-04, 3023-08 #### [facility] ([id number]) [address] [place] [address] 45256 WBC (Bld) [#/Vol] 7.8 10*3/uL Normal 4.0-11.0 [facility] Comment on above: Performed By: #### C BCA, CMP, 3015-04, 7 #### [facility] ([id number]) [address] [place] [address] 04928 COMPREHENSIVE METABOLIC PANE [facility] 08-05-2023 Albumin [Mass/Vol] 4.3 g/dL Normal 3.2-5.3 [facility] Comment on above: Performed By: #### C BCA, CMP, 3015-04, 7 #### [facility] ([id number]) [address] [place] [address] 24450 ALP [Catalytic activity/Vol] 45 U/L Normal 39-130 [facility] Comment on above: Performed By: #### C BCA, CMP, 3, 7 #### [facility] ([id number]) [address] [place] [address] 06027 ALT [Catalytic activity/Vol] 25 U/L Normal 0-40 [facility] Comment on above: Performed By: #### C BCA, CMP, 3, 7 #### [facility] ([id number]) [address] [place] [address] 28911 Anion gap [Moles/Vol] 7 mmol/L Normal 5-15 [facility] Comment on above: Performed By: #### C SPENCER, CMP, 3, 3023-08 #### [facility] ([id number]) [address] [place] [address] 35681 AST [Catalytic activity/Vol] 28 U/L Normal 0-41 [facility] Comment on above: Performed By: #### C SPENCER, CMP, 3015-04, 3023-08 #### [facility] ([id number]) [address] [place] [address] 45465 Bilirubin [Mass/Vol] 1.2 mg/dL Normal 0.3-1.2 [facility] Comment on above: Performed By: #### C SPENCER, CMP, 3015-04, 7 #### [facility] ([id number]) [address] [place] [address] 59535 Calcium [Mass/Vol] 9.9 mg/dL Normal 8.5-10.5 [facility] Comment on above: Performed By: #### C BCA, CMP, 3015-04, 3023-08 #### [facility] ([id number]) [address] [place] [address] 48319 Chloride [Moles/Vol] 103 mmol/L Normal 98-109 [facility] Comment on above: Performed By: #### C BCA, CMP, 3015-04, 3023-08 #### [facility] ([id number]) [address] [place] [address] 26467 CO2 [Moles/Vol] 24 mmol/L Normal 22-32 [facility] Comment on above: Performed By: #### C KAYE PALMER, 3015-04, 7 #### [facility] ([id number]) [address] [place] [address] 75928 Creatinine [Mass/Vol] 1.08 mg/dL Normal 0.70-1.20 [facility] Comment on above: Result Comment: METH OD TRACEABLE TO IDMS STANDARD Performed By: #### C KAYE PALMER, 3015-04, 3023-08 #### [facility] ([id number]) [address] [place] [address] 82141 GFR/1.73 sq M.predicted among non-blacks MDRD (S/P/Bld) [Vol rate/Area] 86 mL/min/{1.73_m2} Normal >59 [facility] Comment on above: Result Comment: Reported eGFR is based on the CKD-EPI 2020 equation that does not use a race coefficient. Performed By: #### C KAYE PALMER, 3015-04, 3023-08 #### [facility] ([id number]) [address] [place] [address] 39837 Glucose [Mass/Vol] 102 mg/dL High 65-99 [facility] Comment on above: Performed By: #### C KAYE PALMER, 3015-04, 7 #### [facility] ([id number]) [address] [place] [address] 04211 Potassium [Moles/Vol] 4.1 mmol/L Normal 3.5-5.0 [facility] Comment on above: Performed By: #### C SPENCER CMP, 3015-04, 3023-08 #### [facility] ([id number]) [address] [place] [address] 44202 Protein [Mass/Vol] 8.4 g/dL High 6.0-8.0 [facility] Comment on above: Performed By: #### C SPENCER CMP, 3015-04, 3023-08 #### [facility] ([id number]) [address] [place] [address]271 Sodium [Moles/Vol] 134 mmol/L Normal 134-146 [facility] Comment on above: Performed By: #### C KAYE PALMER, 3, 3023-08 #### [facility] ([id number]) [address] [place] [address] 90862 Urea nitrogen [Mass/Vol] 11 mg/dL Normal 5-23 [facility] Comment on above: Performed By: #### C KAYE PALMER, 3015-04, 3023-08 #### [facility] ([id number]) [address] [place] [address]999 Cortisol [Mass/Vol]on 2023 CORTISOL 7.6 ug/dL Normal [facility] Comment on above: Result Comment: Due to the diurnal variation of cortisol levels in normal subjects, all cortisol measurements should be referenced to the time of day of sample collection. AM Cortisol Age>=6 6.7-22.4 ug/dL PM Cortisol Age>=6 <10 ug/dL Performed By: #### 2 143-6 #### [facility] ([id number]) [address] [place] [address], [address] [place] [address] FREE T4on 08-05-2023 Free T4 [Mass/Vol] 1.36 ng/dL Normal 0.61-1.60 [facility] Comment on above: Performed By: #### C KAYE PALMER, 3015-04, 3023-08 #### [facility] ([id number]) [address] [place] [address] TSH Qnon 08-05-2023 TSH 0.63 uIU/mL Normal 0.49-4.67 [facility] Comment on above: Performed By: #### C SPENCER, [facility], 3016-3, 3024-7 #### [facility] ([id number]) [address] [place] [address], [place] [address] CT CHEST W CONTon 08-02-2023 CT CHEST W CONT CT CHEST W CONT STUDY: CT chest with contrast CLINICAL HISTORY: Lung cancer. Small cell lung cancer. COMPARISON: CT scan 03/28/2023 TECHNIQUE: CT chest with contrast. All CT scans at this facility dose modulation, iterative reconstruction, and/or weight based dosing when appropriate to reduce radiation dose to as low as reasonably achievable. FINDINGS: The heart is normal in size. No pericardial effusion. No significant atherosclerotic calcification the coronary arteries. No thoracic aortic aneurysm. The proximal pulmonary arteries are patent. No pleural effusion or pneumothorax. Significant interval enlargement of mediastinal and perihilar lymphadenopathy, most pronounced in the subcarinal and right paratracheal space. Right paratracheal lymph node measures 3.5 x 3.5 cm. Perihilar adenopathy causes mild stenosis of the main bilateral pulmonary arteries and encasement of the bilateral mainstem and segmental bronchi. The trachea and mainstem bronchi are patent. Significant interval enlargement of poorly circumscribed right hilar mass measuring up to 6.0 cm. Significant interval increased size and number of diffuse bilateral pulmonary nodules, largest at the right apex measuring 4.4 cm. There are nodular interstitial infiltrates throughout the right lung concerning for lymphangitic spread of neoplasm. See CT abdomen and pelvis or intra-abdominal findings. No acute osseous abnormalities. IMPRESSION: 1. Significant interval progression of neoplasm throughout the chest. 2. Significant interval enlargement of mediastinal and perihilar lymphadenopathy. There is also significant interval enlargement of poorly circumscribed right hilar mass measuring up to 6 cm. 3. There are new innumerable bilateral pulmonary nodules, largest at the right apex measuring 4.4 cm. There is also diffuse nodular interstitial infiltrates throughout the right lung concerning for neoplastic lymphangitic spread. Finalized by Wali Mccord MD on 08/02/2023 10:54 AM Normal [facility] CT ABDOMEN AND PELVIS W CONT on 07-31-2023 CT ABDOMEN AND PELVIS W CONT CT ABDOMEN AND PELVIS W CONT STUDY: ABDOMEN AND PELVIS CT WITH CONTRAST CLINICAL HISTORY: Staging Metastatic non-small cell lung cancer (CMS-HCC) COMPARISON: None. TECHNIQUE: CT abdomen and pelvis was performed utilizing 5 mm axial reconstructions following the uneventful administration of 100 cc Omnipaque 300 nonionic intravenous contrast. Coronal and sagittal reformatted images as well as delayed excretory phase images were obtained and reviewed. Automated exposure control was utilized. FINDINGS: Abdomen: Numerous bilateral pulmonary nodules compatible with pulmonary metastases. Chest findings are reported separately. The liver, adrenal glands, pancreas and spleen appear to be unremarkable. The gallbladder is present. Small bowel is nondilated and distended. No enlarged mesenteric or retroperitoneal lymph nodes. Appendix is unremarkable. No renal collecting system dilatation seen. Atherosclerotic changes of the normal caliber abdominal aorta. Pelvis: No free pelvic fluid. No enlarged pelvic lymph nodes. Urinary bladder is grossly unremarkable. No vertebral body height loss. Degenerative change of the thoracolumbar spine. IMPRESSION: 1. No evidence of acute abdominal or pelvic process or evidence of abdominal or pelvic metastatic disease. 2. Multiple bilateral lower lobe pulmonary nodules. Chest findings reported separately. All CT scans at this facility use dose modulation, iterative reconstruction, and/or weight based dosing when appropriate to reduce radiation dose to as low as reasonably achievable. Finalized by Agusto Quezada MD on 07/31/2023 11:13 AM Normal [facility] ECG 12 Leadon 07-20-2023 Atrial fibrillation with a rapid ventricular response Right axis deviation QTc [address] [facility] Work Phone: ECG 12 lead ECGon 07-05-2023 ECG 12 lead ECG [facility] [place] [address] [place] [address] Electrocardiograph Report Signed Patient: Arvin Julien MR#: [id number] : 1980 Acct:[id number] Age/Sex: 43 / M ADM Date: 07/05/23 Loc: PO Room: Type: [facility] Attending Dr: Fermin Wall MD Ordering Provider: Fermin Wall MD Date of Service: 07/05/23 ECG/ECG 12 lead ECG: Pre-cardioversion rhythm assessment Copies to: Test Reason : Blood Pressure : / mmHG Vent. Rate : 094 BPM Atrial Rate : 110 BPM P-R Int : 000 ms QRS Dur : 098 ms QT Int : 370 ms P-R-T Axes : 000 097 053 degrees QTc Int : 462 ms Atrial fibrillation Rightward axis Incomplete right bundle branch block Abnormal ECG No previous ECGs available Confirmed by EMELIA WALL MD, FACC ([id number]) on 07/06/2023 11:37:22 AM Referred By: Fermin Wall Electronically Signed By:EMELIA WALL MD, FACC Transcribed By: MUS Signed By Fermin Wall MD 07/06/23 1137 Normal [facility] ECG post procedureon 024 ECG post procedure [facility] [place] [address] [place] [address] Electrocardiograph Report Signed Patient: Arvin Julien MR#: [id number] : 1980 Acct:[id number] Age/Sex: 43 / M ADM Date: 07/05/23 Loc: Room: Type: [facility] Attending Dr: Fermin Wall MD Ordering Provider: Fermin Wall MD Date of Service: 07/05/23/ ECG/ECG post procedure: afib Copies to: Test Reason : Blood Pressure : 138/084 mmHG Vent. Rate : 069 BPM Atrial Rate : 069 BPM P-R Int : 194 ms QRS Dur : 096 ms QT Int : 440 ms P-R-T Axes : 044 094 077 degrees QTc Int : 471 ms Sinus rhythm with frequent premature ventricular complexes Rightward axis Borderline ECG When compared with ECG of 05-JUL-2023 12:57, (Unconfirmed) Sinus rhythm has replaced Atrial fibrillation Confirmed by EMELIA WALL MD, FACC ([id number]) on 07/06/2023 11:37:27 AM Referred By: Fermin Wall Electronically Signed By:EMELIA WALL MD, FACC Transcribed By: MUS Signed By Fermin Wall MD 07/06/23 1137 Normal [facility] Electrolyteson 07-05-2023 Anion gap [Moles/Vol] 13.0 mmol/L Normal 6.0-15.0 [facility] Comment on above: Result Comment: PERF ORMED BY: [place] [address] PATHOLOGIST TEAR DOWN MAN PAYAL WERNER M.D. Performed By: #### L YTES #### [address] Chloride [Moles/Vol] 102 mmol/L Normal 98-107 [facility] Comment on above: Performed By: #### L YTES #### [address] CO2 [Moles/Vol] 25.2 mmol/L Normal 21.0-31.0 [facility] Comment on above: Performed By: #### L YTES #### [address] Potassium [Moles/Vol] 4.2 mmol/L Normal 3.5-5.1 [facility] Comment on above: Performed By: #### L YTES #### [address] Sodium [Moles/Vol] 136 mmol/L Normal 136-145 [facility] Comment on above: Performed By: #### L YTES #### [address] Surgical Pathologyon [address] [facility] Comment on above: Result Comment: [facility] [address] [place] [address] Surgical Pathology Consultation ADDENDUM [place] Patient Name:ARVIN JULIEN:1980 (Age: 43)Gender:MTaken:4Reported:4Physician(s):Katherine Orellana ([phone])Copy To:[facility] #:[id number]. Rec. #:[id number]: #[id number] Final Pathologic Diagnosis Left cervical lymph node, core biopsy (2 H&E, 2 immunostain): METASTATIC SQUAMOUS CELL CARCINOMA. Comment: The neoplastic cells are positive for p40, and negative for TTF-1, supportive of a diagnosis of a poorly differentiated squamous cell carcinoma. Report Electronically Signed Out gp/06/01/2023Glenn Chawla MD Addendum (PHS) Date Reported: 11/01/2023 Results of PD-L1 (28-8), SemiQuant IHC, Manual dated 09/30/2023 are received from [facility], [address] [place] [address] and are as follows: Interpretation: Left cervical lymph node, specimen for PD-L1 immunohistochemistry studies (clone 28-8, [employer], [place], [place]; using a propriety detection system) ([id number]): 5% tumor cells are positive PD-L1 (membranous positivity). The percent of PD-L1 positive cells based upon the total number of tumor cells (combined positive score, CPS) is less than 10. Interpretation: Pre-clinical studies suggest that positive PD-L1 immunohistochemistry in tumor cells and/or tumorassociated immune cells may predict tumor response to therapy with immune checkpoint inhibitors. This result should not be used as the sole factor in determining treatment, as other factors (for example, tumor mutation burden, and microsatellite instability) have been also studied as predictive markers. Please see the complete report from [facility] [employer] in the patient's EMR. Electronically Signed Out Glenn Chawla MD Interpretation performed at [facility], [address] [place] [address], License number: [id number]. Clinical History Malignant neoplasm of overlapping sites of right bronchus and lung. Per EMR: Non-small cell lung cancer diagnosed 06/2022. Gross Description Received in formalin, labeled ANAYA, left cervical lymph node is a 0.8 x 0.4 x 0.1 cm aggregate of burdick-atkins, feathery soft tissue fragments. The specimen is filtered and entirely submitted in one cassette. (1, ns, [id number], m6) MW mxw/05/31/2023NSK Microscopic Findings Microscopic examination performed. All special stain controls are reviewed, displaying appropriate staining. Specimen(s) Received Left Cervical lymph node biopsy Fee Codes(s): 1; 47957, 38147, 42801 ECG 12 Leadon 05-17-2023 Atrial fibrillation with a rapid ventricular response Rightward axis QTc [address] [facility] Work Phone: [phone] Heart Transthoracicon Aortic Valve Area by Continuity of Peak Velocity 2.93 [facility] Work Phone: Aortic Valve Area by Continuity of VTI 3.06 [facility] Work Phone: [phone] AV mn grad 3.0 [facility] Work Phone: [phone] AV pk grad 6.1 [facility] Work Phone: [phone] AV pk micah 1.23 [facility] Work Phone: [phone] LV A4C EF 56.8 [facility] Work Phone: [phone] LVIDd 5.50 [facility] Work Phone: [phone] LVOT diam 2.40 [facility] Work Phone: [address], [address] [place] [address] TRANSTHORACIC ECHOCARDIOGRAM REPORT Patient Name: ARVIN JULIEN Reading Physician: Carola Wall MD Study Date: 01/07/2023 Ordering Provider: Carola WALL MRN/PID: [id number] Fellow: Nurse: Date of /Age: 11 1980 / 42 years Lyric Writer: Sheryl Newton RDCS, RVT Gender: M Additional Staff: Height: 182.88 cm Admit Date: Weight: 135.17 kg Admission Status: BSA: 2.52 m2 Department Location: [facility] Blood Pressure: 140 /106 mmHg Study Type: TRANSTHORACIC ECHO (TTE) COMPLETE Diagnosis/ICD: Unspecified diastolic (congestive) heart failure (CHF)-I50.30; Essential (primary) hypertension-I10; Paroxysmal atrial fibrillation-I48.0 Indication: Lung Cancer-s/p Recent Chemotherapy with Current Immunotherapy CPT Codes: Echo Complete w Full Doppler-80035 Study Detail: The following Echo studies were performed: 2D, M-Mode, Doppler and color flow. PHYSICIAN INTERPRETATION: Left Ventricle: Left ventricular systolic function is normal, with an estimated ejection fraction of 50-55%. There are no regional wall motion abnormalities. The left ventricular cavity size is normal. Spectral Doppler shows a normal pattern of left ventricular diastolic filling. Left Atrium: The left atrium is mildly dilated. Right Ventricle: The right ventricle is normal in size. There is normal right ventricular global systolic function. Right Atrium: The right atrium is normal in size. Aortic Valve: The aortic valve is trileaflet. There is no evidence of aortic valve regurgitation. The peak instantaneous gradient of the aortic valve is 6.1 mmHg. The mean gradient of the aortic valve is 3.0 mmHg. Mitral Valve: The mitral valve is normal in structure. There is no evidence of mitral valve regurgitation. Tricuspid Valve: The tricuspid valve is structurally normal. No evidence of tricuspid regurgitation. Pulmonic Valve: The pulmonic valve is not well visualized. There is no indication of pulmonic valve regurgitation. Pericardium: There is no pericardial effusion noted. Aorta: The aortic root is normal. CONCLUSIONS: 1. Left ventricular systolic function is normal with a 50-55% estimated ejection fraction. QUANTITATIVE DATA SUMMARY: 2D MEASUREMENTS: Normal Ranges: Ao Root d: 3.50 cm (2.0-3.7cm) LAs: 4.10 cm (2.7-4.0cm) RVIDd: 2.60 cm (0.9-3.6cm) IVSd: 1.00 cm (0.6-1.1cm) LVPWd: 1.00 cm (0.6-1.1cm) LVIDd: 5.50 cm (3.9-5.9cm) LVIDs: 3.80 cm LV Mass Index: 84.5 g/m2 LV % FS 30.9 % LV SYSTOLIC FUNCTION BY 2D PLANIMETRY (MOD): Normal Ranges: EF-A4C View: 56.8 % (>=55%) LV DIASTOLIC FUNCTION: Normal Ranges: MV Peak E: 1.00 m/s (0.7-1.2 m/s) MITRAL VALVE: Normal Ranges: MV Vmax: 1.15 m/s (<=1.3m/s) MV peak P.3 mmHg (<5mmHg) MV mean P.3 mmHg (<48mmHg) AORTIC VALVE: Normal Ranges: AoV Vmax: 1.23 m/s (<=1.7m/s) AoV Peak P.1 mmHg (<20mmHg) AoV Mean P.0 mmHg (1.7-11.5mmHg) LVOT Max Micah: 0.80 m/s (<=1.1m/s) AoV VTI: 21.00 cm (18-25cm) LVOT VTI: 14.20 cm LVOT Diameter: 2.40 cm (1.8-2.4cm) AoV Area, VTI: 3.06 cm2 (2.5-5.5cm2) AoV Area,Vmax: 2.93 cm2 (2.5-4.5cm2) AoV Dimensionless Index: 0.68 PULMONIC VALVE: Normal Ranges: PV Max Micah: 0.6 m/s (0.6-0.9m/s) PV Max P.3 mmHg Carola Wall MD Electronically signed on 01/10/2023 at 11:53:27 AM Final SYNGO Fermin Wall MD - 01/10/[address], [address] [place] [address] TRANSTHORACIC ECHOCARDIOGRAM REPORT Patient Name: ARVIN JULIEN Reading Physician: Carola Wall MD Study Date: 01/07/2023 Ordering Provider: Carola WALL MRN/PID: [id number] Fellow: Nurse: Date of /Age: 11 1980 / 42 years Lyric Writer: Sheryl Newton RDCS, RVT Gender: M Additional Staff: Height: 182.88 cm Admit Date: Weight: 135.17 kg Admission Status: BSA: 2.52 m2 Department Location: [facility] Blood Pressure: 140 /106 mmHg Study Type: TRANSTHORACIC ECHO (TTE) COMPLETE Diagnosis/ICD: Unspecified diastolic (congestive) heart failure (CHF)-I50.30; Essential (primary) hypertension-I10; Paroxysmal atrial fibrillation-I48.0 Indication: Lung Cancer-s/p Recent Chemotherapy with Current Immunotherapy CPT Codes: Echo Complete w Full Doppler-[id number] Study Detail: The following Echo studies were performed: 2D, M-Mode, Doppler and color flow. PHYSICIAN INTERPRETATION: Left Ventricle: Left ventricular systolic function is normal, with an estimated ejection fraction of 50-55%. There are no regional wall motion abnormalities. The left ventricular cavity size is normal. Spectral Doppler shows a normal pattern of left ventricular diastolic filling. Left Atrium: The left atrium is mildly dilated. Right Ventricle: The right ventricle is normal in size. There is normal right ventricular global systolic function. Right Atrium: The right atrium is normal in size. Aortic Valve: The aortic valve is trileaflet. There is no evidence of aortic valve regurgitation. The peak instantaneous gradient of the aortic valve is 6.1 mmHg. The mean gradient of the aortic valve is 3.0 mmHg. Mitral Valve: The mitral valve is normal in structure. There is no evidence of mitral valve regurgitation. Tricuspid Valve: The tricuspid valve is structurally normal. No evidence of tricuspid regurgitation. Pulmonic Valve: The pulmonic valve is not well visualized. There is no indication of pulmonic valve regurgitation. Pericardium: There is no pericardial effusion noted. Aorta: The aortic root is normal. CONCLUSIONS: 1. Left ventricular systolic function is normal with a 50-55% estimated ejection fraction. QUANTITATIVE DATA SUMMARY: 2D MEASUREMENTS: Normal Ranges: Ao Root d: 3.50 cm (2.0-3.7cm) LAs: 4.10 cm (2.7-4.0cm) RVIDd: 2.60 cm (0.9-3.6cm) IVSd: 1.00 cm (0.6-1.1cm) LVPWd: 1.00 cm (0.6-1.1cm) LVIDd: 5.50 cm (3.9-5.9cm) LVIDs: 3.80 cm LV Mass Index: 84.5 g/m2 LV % FS 30.9 % LV SYSTOLIC FUNCTION BY 2D PLANIMETRY (MOD): Normal Ranges: EF-A4C View: 56.8 % (>=55%) LV DIASTOLIC FUNCTION: Normal Ranges: MV Peak E: 1.00 m/s (0.7-1.2 m/s) MITRAL VALVE: Normal Ranges: MV Vmax: 1.15 m/s (<=1.3m/s) MV peak P.3 mmHg (<5mmHg) MV mean P.3 mmHg (<48mmHg) AORTIC VALVE: Normal Ranges: AoV Vmax: 1.23 m/s (<=1.7m/s) AoV Peak P.1 mmHg (<20mmHg) AoV Mean P.0 mmHg (1.7-11.5mmHg) LVOT Max Micah: 0.80 m/s (<=1.1m/s) AoV VTI: 21.00 cm (18-25cm) LVOT VTI: 14.20 cm LVOT Diameter: 2.40 cm (1.8-2.4cm) AoV Area, VTI: 3.06 cm2 (2.5-5.5cm2) AoV Area,Vmax: 2.93 cm2 (2.5-4.5cm2) AoV Dimensionless Index: 0.68 PULMONIC VALVE: Normal Ranges: PV Max Micah: 0.6 m/s (0.6-0.9m/s) PV Max P.3 mmHg Carola Wall MD Electronically signed on 01/10/2023 at 11:53:27 AM Final [facility] Work Phone: [facility] Work Phone: [facility]TTE) [facility] 01-[facility] TRANSTHORACIC ECHO (TTE) COMPLETE [address], [address] [place] [address] TRANSTHORACIC ECHOCARDIOGRAM REPORT Patient Name: ARVIN JULIEN Reading Physician: Carola Wall MD Study Date: 01/07/2023 Ordering Provider: Craola WALL MRN/PID: [id number] Fellow: Nurse: Date of /Age: 11 1980 / 42 years Lyric Writer: Sheryl Newton RDCS, MIR Gender: M Additional Staff: Height: 182.88 cm Admit Date: Weight: 135.17 kg Admission Status: BSA: 2.52 m2 Department Location: [facility] Blood Pressure: 140 /106 mmHg Study Type: TRANSTHORACIC ECHO (TTE) COMPLETE Diagnosis/ICD: Unspecified diastolic (congestive) heart failure (CHF)-I50.30; Essential (primary) hypertension-I10; Paroxysmal atrial fibrillation-I48.0 Indication: Lung Cancer-s/p Recent Chemotherapy with Current Immunotherapy CPT Codes: Echo Complete w Full Doppler-[id number] Study Detail: The following Echo studies were performed: 2D, M-Mode, Doppler and color flow. PHYSICIAN INTERPRETATION: Left Ventricle: Left ventricular systolic function is normal, with an estimated ejection fraction of 50-55%. There are no regional wall motion abnormalities. The left ventricular cavity size is normal. Spectral Doppler shows a normal pattern of left ventricular diastolic filling. Left Atrium: The left atrium is mildly dilated. Right Ventricle: The right ventricle is normal in size. There is normal right ventricular global systolic function. Right Atrium: The right atrium is normal in size. Aortic Valve: The aortic valve is trileaflet. There is no evidence of aortic valve regurgitation. The peak instantaneous gradient of the aortic valve is 6.1 mmHg. The mean gradient of the aortic valve is 3.0 mmHg. Mitral Valve: The mitral valve is normal in structure. There is no evidence of mitral valve regurgitation. Tricuspid Valve: The tricuspid valve is structurally normal. No evidence of tricuspid regurgitation. Pulmonic Valve: The pulmonic valve is not well visualized. There is no indication of pulmonic valve regurgitation. Pericardium: There is no pericardial effusion noted. Aorta: The aortic root is normal. CONCLUSIONS: 1. Left ventricular systolic function is normal with a 50-55% estimated ejection fraction. QUANTITATIVE DATA SUMMARY: 2D MEASUREMENTS: Normal Ranges: Ao Root d: 3.50 cm (2.0-3.7cm) LAs: 4.10 cm (2.7-4.0cm) RVIDd: 2.60 cm (0.9-3.6cm) IVSd: 1.00 cm (0.6-1.1cm) LVPWd: 1.00 cm (0.6-1.1cm) LVIDd: 5.50 cm (3.9-5.9cm) LVIDs: 3.80 cm LV Mass Index: 84.5 g/m2 LV % FS 30.9 % LV SYSTOLIC FUNCTION BY 2D PLANIMETRY (MOD): Normal Ranges: EF-A4C View: 56.8 % (>=55%) LV DIASTOLIC FUNCTION: Normal Ranges: MV Peak E: 1.00 m/s (0.7-1.2 m/s) MITRAL VALVE: Normal Ranges: MV Vmax: 1.15 m/s (<=1.3m/s) MV peak P.3 mmHg (<5mmHg) MV mean P.3 mmHg (<48mmHg) AORTIC VALVE: Normal Ranges: AoV Vmax: 1.23 m/s (<=1.7m/s) AoV Peak P.1 mmHg (<20mmHg) AoV Mean P.0 mmHg (1.7-11.5mmHg) LVOT Max Micah: 0.80 m/s (<=1.1m/s) AoV VTI: 21.00 cm (18-25cm) LVOT VTI: 14.20 cm LVOT Diameter: 2.40 cm (1.8-2.4cm) AoV Area, VTI: 3.06 cm2 (2.5-5.5cm2) AoV Area,Vmax: 2.93 cm2 (2.5-4.5cm2) AoV Dimensionless Index: 0.68 PULMONIC VALVE: Normal Ranges: PV Max Micah: 0.6 m/s (0.6-0.9m/s) PV Max P.3 mmHg [id number] Fermin Wall MD Electronically signed on 01/10/2023 at 11:53:27 AM Final [facility] Tobacco Screening.on 023 Tobacco use status [facility] b) No [facility] [address] DO Work Phone: HISTOLOGY - TISSUE EXAMon LAB AP CASE REPORT Normal [facility] Comment on above: Result Comment: Surg ical Pathology Case: [id number] Authorizing Provider: Galdino Olmos MD Collected: 07/16/2022 1455 Ordering Location: [facility] Main Operating Room Received: 07/16/2022 8940 Pathologist: Lupe Jolly MD Specimen: Lung, Right Upper Lobe, right hlar mass Performed By: #### L [id number] #### [facility] ([facility]) [address] [place] [address] LAB AP CLINICAL INFORMATION Order Diagnoses [facility] Comment on above: Result Comment: R59. 0 - Mediastinal adenopathy [ICD-10-CM] R91.8 - Lung mass [ICD-10-CM] Performed By: #### L [id number] #### [facility] ([facility]) [address] [place] [address] LAB AP DIAGNOSIS COMMENT PDL1 analysis is pending; results will be reported in an addendum. [facility] Comment on above: Performed By: #### L [id number] #### [facility] ([facility]) [address] [place] [address] LAB AP GROSS DESCRIPTION [facility] Comment on above: Result Comment: A. L nasim, Right Upper Lobe. Received in formalin , labeled Arvin Mcknight Anaya, right hilar mass . It consists of 0.8 x 0.7 x 0.2 cm aggregate of white to red-atkins soft tissue. The specimen is entirely submitted in 1 cassette. Lulu Chong, Pathologists' Rn Travel Performed By: #### L [id number] #### [facility] ([facility]) [address] [place] [address] LAB AP MICROSCOPIC DESCRIPTION Microscopic examination performed. [facility] Comment on above: Performed By: #### L [id number] #### [facility] ([facility]) [address] [place] [address] LAB AP REPORT FINAL DIAGNOSIS NARRATIVE [facility] Comment on above: Result Comment: A. L nasim, right hilar mass, biopsy: - Squamous cell carcinoma; see comment. Performed By: #### L [id number] #### [facility] ([facility]) [address] [place] [address] [facility] 07-16-2022 -------- Attestation signed by Galdino Olmos MD at 07/16/2022 1:51 PM Re-explained the procedure to the patient along with the associated risk of pneumothorax, bleeding, hypoxia, and respiratory failure. Patient is agreeable and will proceed with the scheduled bronchoscopy and EBUS Galdino Olmos MD Interventional Pulmonary Medicine Pulmonary and Critical Care Medicine [facility] Pulmonary H&P: History Of Present Illness Arvin Julien is a 42 y.o. male presenting today for EBUS-FNA/bronchoscopy with BAL. Patient has CT chest done in May 2022 which showed right upper lobe consolidation and infiltration with mediastinal and hilar lymphadenopathy. Recent chest x-ray from June 2022 showed complete collapse of the right upper lobe. Patient has history of smoking. Past Medical History He has a past medical history of Atrial fibrillation (CMS/HCC), Pulmonary mass, and Sleep apnea. Surgical History He has a past surgical history that includes Tonsillectomy; Carpal tunnel release (, 2019); and Uvulopalatopharyngoplasty (01/2017). Social History He reports that he quit smoking about 2 months ago. His smoking use included cigarettes. He has never used smokeless tobacco. He reports that he does not currently use alcohol. He reports that he does not currently use drugs after having used the following drugs: Heroin. Family History Family History Family history unknown: Yes Allergies Patient has no known allergies. Medications (Not in a hospital admission) Review of Systems Constitutional: no activity change, no appetite change, no chills, no fatigue and no fever. HENT: No nasal congestion, no postnasal drip, and no hearing loss, no rhinorrhea and no sore throat. Eyes: No discharge and no visual disturbance. Respiratory: Dyspnea on exertion, no choking, no chest tightness, no wheezing and no stridor. Cardiovascular: No chest pain, no palpitations and no leg swelling. Gastrointestinal: No abdominal pain. Musculoskeletal: No arthralgias and no myalgias. Skin: No color change and no wound. Neurological: No dizziness and no headaches. Last Recorded Vitals Visit Vitals Smoking Status Former Physical Exam General: Patient is alert and oriented x3, not in acute distress. HEENT: Atraumatic, normocephalic, PERRLA Neck: Supple neck. Respiratory: Clear breathing sound bilaterally, no wheezing no crackles. Heart: Regular rhythm, no murmur, no rub. Neurology: Can move all extremities, no focal deficit. Abdomen: Soft, not distended, not tender, Azar sign is negative. Extremities: No cyanosis, no edema. Skin: Warm and dry. Assessment:L Right upper lobe collapse/consolidation with significant mediastinal/hilar lymphadenopathy. Plan:: Bronchoscopy/BAL/EBUS-FNA. Further recommendation refer to the procedure note. Normal [facility] NON-MORTGAGE COUNSELOR CYTOLOGY - CELLULAR EXAMon 07-16-2022 LAB AP CASE REPORT Normal [facility] Comment on above: Result Comment: Non- gynecologic Cytology Case: [id number] Authorizing Provider: Galdino Olmos MD Collected: 07/16/2022 1417 Ordering Location: [facility] Main Operating Room Received: 07/16/2022 0787 Pathologist: Elis Campbell MD Specimens: A) - Lymph Node Station 4R, 4R FNA B) - Lung, Right Upper Lobe, right hilar lymph node Performed By: #### L [id number] #### [facility] ([facility]) [address] [place] [address] LAB AP CLINICAL INFORMATION Order Diagnoses Normal [facility] Comment on above: Result Comment: R59. 0 - Mediastinal adenopathy [ICD-10-CM] R91.8 - Lung mass [ICD-10-CM] Performed By: #### L [id number] #### [facility] [address] [place] [address] LAB AP DIAGNOSIS COMMENT Normal [facility] Comment on above: Result Comment: Ther e are moderate amounts of tumor present in the cell block from part A for ancillary studies, if clinically indicated. There are scant tumor cells present in part B. See also concurrent biopsy, [id number]. PDL-1 will be performed on the concurrent surgical biopsy. Performed By: #### L [id number] #### [facility] [address] [place] [address] LAB AP GROSS DESCRIPTION Normal [facility] Comment on above: Result Comment: A) 4 air-dried slides, 5 alcohol-fixed slides, 30 mL CytoLyt with red cloudy fluid B) 1 air-dried slides, 1 alcohol-fixed slides, 30 mL CytoLyt with red cloudy fluid Performed By: #### L [id number] #### [facility] ([facility]) [address] [place] [address] LAB AP INTRAOPERATIVE CONSULTATION Normal [facility] Comment on above: Result Comment: [facility] Node Station 4R. Rapid on-site evaluation was performed by Alonzo Hadley MD. The material examined during rapid on-site evaluation was deemed adequate for diagnosis. Pass #1: Adequate Pass #2: Adequate Pass #3: Adequate Pass #4: Defer to CB Pass #5: Defer to CB *Only select material is examined during the on-site evaluation. Final diagnosis is pending the review of all material submitted.* B. Lung, Right Upper Lobe. Rapid on-site evaluation was performed by Alonzo Hadley MD. The material examined during rapid on-site evaluation was deemed adequate for diagnosis. Pass #1: Adequate Pass #2: Defer to CB Pass #3: Defer to CB Pass #4: Defer to CB Pass #5: Defer to CB *Only select material is examined during the on-site evaluation. Final diagnosis is pending the review of all material submitted.* Performed By: #### L [id number] #### [facility] ([facility]) [address] [place] [address] LAB AP MICROSCOPIC DESCRIPTION [facility] Comment on above: Result Comment: A. S atisfactory for evaluation. Examination of the prepared smears and cell block reveals crowded aggregates of tumor cells with enlarged nuclei, dense cytoplasm, hyperchromatic nuclei, and prominent nucleoli in a background of lymphocytes and blood. Focal cytoplasmic keratinization is identified. B. Satisfactory for evaluation. Examination of the prepared smears and cell block reveals numerous tumor cells with similar morphology as those identified in part A. Performed By: #### L [id number] #### [facility] ([facility]) [address] [place] [address] LAB AP REPORT FINAL DIAGNOSIS NARRATIVE Normal [facility] Comment on above: Result Comment: Zay Dumont ymph node, station 4R, EBUS-guided fine needle aspiration: - Metastatic squamous cell carcinoma B. Lung, right upper lobe, EBUS-guided fine needle aspiration: - Squamous cell carcinoma Performed By: #### L [id number] #### [facility] ([facility]) [address] [place] [address] NURSNOTEon 07-16-2022 NURSNOTE at bedside Normal [facility] POCT GLUCOSE METER UNSOLICIT ED RESULTSon 07-16-2022 Glucose [Mass/Vol] 96 mg/dL Normal 70-105 [facility] Comment on above: Result Comment: [facility] Performed By: #### L [id number] #### [facility] ([facility]) [address] [place] [address] Tobacco Screening.on 023 Fall risk assessment c) Not medically indicated MP-[facility] DO Work Phone: Tobacco use status [facility] b) No [facility] [place] [address] DO Work Phone: Prep for Procedureon 023 Prep for Procedure [id number] Arvin Julien 1980 M Date Provider Department Center 07/12/2022 [facility] Family History Family history unknown: Yes Normal [facility] Orders Onlyon 07-11-2022 Orders Only [id number] AnayaArvin Mcknight 1980 M Date Provider Department Center 07/11/2022 383-GALDINO OLMOS [facility] Family History Family history unknown: Yes Normal [facility] CNOVon 06-11-2022 CNOV Office Visit (AMDERM ) ARVIN JULIEN ([id number]) 1980 M Date Time Provider Department 06/11/22 10:45 AM KATIE BAEZ AMDIVANA During your visit today, we recorded the following information about you: Katie Baez APRN.CNP 06/11/2022 11:06 AM Signed SKIN EXAM NEW CC: This patient is a 42 year old male. Patient presents with: LESION, SKIN Full Body Skin Check HPI: Location: mid back Appearance (size, shape, color): red flat spot Duration: unsure, girlfriend marked it prior to visit Symptoms (growing, itching, bleeding, tender): none Treatments: none Location: left calf Appearance (size, shape, color): raised spot Duration: unsure, girlfriend marked it prior to visit Symptoms (growing, itching, bleeding, tender): itches occasionally Treatments: none Location: left forearm Appearance (size, shape, color): weird spot Duration: several months Symptoms (growing, itching, bleeding, tender): raised and scaly Treatments: none Location: right thigh Appearance (size, shape, color): red hard bump Duration: years Symptoms (growing, itching, bleeding, tender): was smaller, then was treated with liquid nitrogen and got larger, denies pain or itching Treatments: liquid nitrogen Was treatment effective: no, increased in size -Personal history of skin cancer: No -History of blistering sunburns:No -Family history of skin cancer: Yes, BCC mother, SCC Grandmother SOC: Social History Tobacco Use Smoking status: Every Day Packs/day: 1.00 Years: 29.00 Pack years: 29.00 Types: Cigarettes Start date: 02/21/1990 Smokeless tobacco: Never Vaping Use Vaping Use: Never used Substance Use Topics Alcohol use: No Drug use: No MEDS: Current outpatient prescriptions: Current Outpatient Medications on File Prior to Visit Medication Sig metFORMIN (GLUCOPHAGE) 500 mg tablet Take 500 mg by mouth twice daily. lisinopril (ZESTRIL) 10 mg tablet Take 10 mg by mouth once daily. No current facility-administered medications on file prior to visit. ALLERGY: ALLERGIES Allergen Reactions Celebrex [Celecoxib] GI Upset Skelaxin [Metaxalon* GI Upset PAST MEDICAL HISTORY: No chronic skin disease or skin cancer FAMILY HISTORY: No chronic skin disease or skin cancer REVIEW OF SYSTEMS: Patient feels well and denies any recent fevers, chills, or nightsweats. PHYSICAL EXAM: The patient is a pleasant male in no distress. Patient is healthy, well developed, well nourished and in otherwise good health. he is alert and oriented x 3. A skin exam was done of the Scalp, face, ears, neck, chest, back, abdomen, bilateral upper extremities, bilateral lower extremities, nails and hair. Russell Skin Type: II IMPRESSION: Left forearm and left calf brown stuck on plaques Densely scattered light atkins macules noted on all sun exposed areas Regular and symmetric hyperpigmented macules and papules throughout Small scott red papules throughout Right anterior thigh light brown firm square nodule + dimple test Mid back and upper back with TLG's A/P: (L82.1) Seborrheic Keratoses - extremely common and benign in nature - appear mostly on the chest and back, but can occur anywhere - there may be a few or hundreds - they have a stuck on appearance - genetic in nature - may become inflamed or irritated causing pruritus or pain Management: - generally removal is considered cosmetic in nature as they have no malignant potential Treatment: - discussed liquid nitrogen - declines today (L81.4) Solar lentigines (D22.9) Multiple benign nevi (D18.01) Angiomas of skin -Discussed etiology and educated. -Reassured benign nature. -Continue to monitor (Z80.8) Family history of skin cancer (D23.9) Dermatofibroma - also known as histiocytomas - common benign skin lesions - often times arises at site of trauma (bug bite etc) - may be tender or pruritic - very common on women's legs - common to have multiple Treatment: - no treatment is needed unless symptomatic (I78.1) Telangiectasia of skin - Telangiectasia's are small widened blood vessels Common causes: - rosacea - aging - genetics - - sun exposure - trauma - overuse of topical steroid cream Treatment: - treatment is not necessary, most TLG's are not symptomatic I counseled the patient after the exam about the ABCDEs of nevus evaluation, pre-cancer,skin cancer surveillance with monthly self skin exams. Sunscreen / sunblock protection reviewed. Follow up in 1 year and PRN The patient is seen and examined by Katie Baez CNP and the following reflects his/her service. Scribed by Evelia Victor RN /Lissette Carreon MA I agree with the Chief Complaint, ROS, and Past Histories independently gathered by the clinical customer support engineer and the remaining scribed note accurately describes my personal service (more content not included)... Normal [facility] CARDIAC MANDEEP ADMITon 023 CK [Catalytic activity/Vol] 255 U/L Normal 39-308 [facility] Comment on above: Performed By: #### C RADHA, CMADM #### [facility] [address] [place], [place] [address] Dr. Davis Ryan CK.MB [Mass/Vol] 1.97 ng/mL Normal <=3.60 [facility] Comment on above: Performed By: #### C RADHA, CMADM #### [facility] [address] [place], [place] [address] Dr. Davis Ryan HSTROP 4.7 pg/mL Normal 4.0-76.1 [facility] Comment on above: Result Comment: CUT- OFF POINTS HAVE BEEN ESTABLISHED BASED ON THE FOURTH UNIVERSAL DEFINITIONS OF MYOCARDIAL INFARCTION. THE UPPER REFERENCE LIMIT (URL) OF TROPONIN, DEFINED THE 99TH PERCENTILE OF cTnI DISTRIBUTION IN A REFERENCE POPULATION, HAS BEEN CONFIRMED THE DECISION THRESHOLD FOR AL DIAGNOSIS. Performed By: #### C RADHA, CMADM #### [facility] [address] [place] [address] [address] Davis Ryan BALJEET 66 ng/mL Normal 16-96 [facility] Comment on above: Performed By: #### C MP, CMADM #### [facility] [address] [place] [address] [address] Davis Ryan CBC AUTO DIFFon 05-29-2022 BASO # 0.1 103/ul Normal 0.0-0.1 [facility] Comment on above: Performed By: #### C BC #### [facility] [address] [place] [address] [address] Davis Ryan Basophils/100 WBC (Bld) 0.5 % Normal 0.2-2.0 [facility] Comment on above: Performed By: #### C BC #### [facility] [address] [place] [address] Dr. Davis Ryan EO # 0.5 103/ul Normal 0.0-0.7 [facility] Comment on above: Performed By: #### C BC #### [facility] [address] [place] [address] Dr. Davis Ryan Eosinophils/100 WBC (Bld) 3.9 % Normal 0.9-7.0 [facility] Comment on above: Performed By: #### C BC #### [facility] [address] [place] [address] Dr. Davis Ryan Erythrocyte distribution width (RBC) [Ratio] 12.9 % Normal 11.0-15.0 [facility] Comment on above: Performed By: #### C BC #### [facility] [address] [place] [address] Dr. Davis Ryan Hematocrit (Bld) [Volume fraction] 39.7 % Critically low 42.0-54.0 [facility] Comment on above: Performed By: #### C BC #### [facility] [address] [place] [address] Dr. Davis Ryan Hemoglobin (Bld) [Mass/Vol] 13.7 g/dL Critically low 14.0-18.0 [facility] Comment on above: Performed By: #### C BC #### [facility] [address] [place] [address] [address] Davis Ryan IG # 0.04 10e3/ul Critically high 0.00-0.03 [facility] Comment on above: Performed By: #### C BC #### [facility] [address] [place] [address] Dr. Davis Ryan IG % 0.3 % Normal 0.0-0.5 [facility] Comment on above: Performed By: #### C BC #### [facility] [address] [place] [address] Dr. Davis Ryan LYMPH # 2.0 103/ul Normal 1.2-3.8 [facility] Comment on above: Performed By: #### C BC #### [facility] [address] [place] [address] Dr. Davis Ryan Lymphocytes/100 WBC (Bld) 16.7 % Critically low 20.5-60.0 [facility] Comment on above: Performed By: #### C BC #### [facility] [address] [place] [address] Dr. Davis Ryan MANUAL DIFF REQ NO Normal [facility] Comment on above: Performed By: #### C BC #### [facility] [address] [place] [address] Dr. Davis Ryan MCH (RBC) [Entitic mass] 30.4 pg Normal 25.9-34.0 [facility] Comment on above: Performed By: #### C BC #### [facility] [address] [place] [address] Dr. Davis Ryan MCHC (RBC) [Mass/Vol] 34.5 g/dL Normal 29.9-35.2 [facility] Comment on above: Performed By: #### C BC #### [facility] [address] [place] [address] Dr. Davis Ryan MCV (RBC) [Entitic vol] 88.2 fL Normal 80.0-94.0 [facility] Comment on above: Performed By: #### C BC #### [facility] [address] [place] [address] [address] Davis Ryan MONO # 1.2 103/ul Critically high 0.3-0.8 [facility] Comment on above: Performed By: #### C BC #### [facility] [address] [place] [address] [address] Davis Ryan Monocytes/100 WBC (Bld) 10.1 % Normal 1.7-12.0 [facility] Comment on above: Performed By: #### C BC #### [facility] [address] [place] [address] [address] Davis Ryan NEUT # 8.3 103/ul Critically high 1.4-6.5 [facility] Comment on above: Performed By: #### C BC #### [facility] [address] [place] [address] Dr. Davis Ryan Neutrophils/100 WBC (Bld) 68.5 % Normal 43.0-75.0 [facility] Comment on above: Performed By: #### C BC #### [facility] [address] [place] [address] Dr. Davis Ryan Platelet mean volume (Bld) [Entitic vol] 11.0 fL Normal 9.5-13.5 [facility] Comment on above: Performed By: #### C BC #### [facility] [address] [place] [address] Dr. Davis Ryan PLT 203 103/ul Normal 150-450 [facility] Comment on above: Performed By: #### C BC #### [facility] [address] [place] [address] Dr. Davis Ryan RBC 4.50 106/ul Critically low 4.70-6.10 [facility] Comment on above: Performed By: #### C BC #### [facility] [address] [place] [address] Dr. Davis Ryan WBC 12.1 103/ul Critically high 4.0-11.0 [facility] Comment on above: Performed By: #### C BC #### [facility] [address] [place] [address] CHEST W CONon 05-29-2022 CT CHEST W CON EXAMINATION:CT CHEST W CON INDICATION:Chest pain COMPARISON:Chest x-ray dated 05/29/2022. There are no previous chest CT scans for comparison. TECHNIQUE:Thin section transaxial slices were acquired through the chest. Coronal and sagittal reconstructed images were reviewed. IV CONTRAST:With FINDINGS: LUNGS: There is a pleural-based irregular masslike density in the periphery of the posterior lateral right upper lobe measuring 2.1 x 2.7 x 3.8 cm. There is a large central obstructing right perihilar masslike density measuring approximately 8.1 x 6.2 cm. Additional peripheral pulmonary nodules are present elsewhere in the right upper lobe. There is subsolid airspace disease in the right upper lobe which may represent postobstructive pneumonitis. There is atelectasis progressing distally along the inferior anterior right upper lobe. There are pulmonary nodules in the right middle lobe measuring up tor 6 mm. These are concerning for metastatic nodules. There is mixed density subsolid nodule in the right lung base measuring 2.2 cm. There is a pulmonary nodule in the left lower lobe measuring 7 mm. PLEURAL CAVITY: There is a small right pleural effusion. MEDIASTINUM: There is minimal mucus in the trachea. HEART: The heart is unremarkable. VASCULAR:There is no aneurysm or dissection of the thoracic aorta. LYMPH NODES:There is extensive mediastinal lymphadenopathy. The largest volunteer patient representative lymph node is in the right anterior mediastinum measuring 3.1 x 2.8 cm. There is necrotic mass in the right hilum which as discussed above. CHEST WALL/AXILLA: Chest wall and axilla are unremarkable. BONES: Osseous structures are unremarkable. VISUALIZED UPPER ABDOMEN: There is an incompletely imaged nodule in the left adrenal gland concerning for metastatic nodule. IMPRESSION: 1. Large necrotic central right hilar obstructing soft tissue mass with imaging features consistent with malignant neoplasm given the clinical history. There are several peripheral pulmonary nodules elsewhere in the right upper lobe along with some solid airspace disease in right upper lobe concerning for postobstructive pneumonitis. Additional nodules are present in the right middle lobe and each lower lobe as discussed above concerning for metastatic nodules. 2. Extensive mediastinal lymphadenopathy. 3. Small right pleural effusion. 4. Incompletely imaged left adrenal gland concerning for potential metastatic lesion. Electronically authenticated by: SARIKA BAXTER Date: 2022-05-29 19:33 Normal [facility] PROF 14(COMP METB)on 023 Albumin [Mass/Vol] 3.6 g/dL Normal 3.4-5.0 [facility] Comment on above: Performed By: #### C RADHA, CMADM #### [facility] [address] [place] [address] [address] Davis Ryan Albumin/Globulin [Mass ratio] 0.9 {ratio} Normal [facility] Comment on above: Performed By: #### C RADHA, CMADM #### [facility] [address] [place] [address] [address] Davis Ryan ALP [Catalytic activity/Vol] 60 U/L Normal 46-116 [facility] Comment on above: Performed By: #### C RADHA, CMADM #### [facility] [address] [place] [address] [address] Davis Ryan ALT [Catalytic activity/Vol] 34 U/L Normal 16-63 [facility] Comment on above: Performed By: #### C RADHA, CMADM #### [facility] [address] [place] [address] [address] Davis Ryan Anion gap [Moles/Vol] 13.7 mmol/L Normal [facility] Comment on above: Performed By: #### C RADHA, CMADM #### [facility] [address] [place] [address] [address] Davis Ryan AST [Catalytic activity/Vol] 31 U/L Normal 15-37 [facility] Comment on above: Performed By: #### C RADHA, CMADM #### [facility] [address] [place] [address] [address] Davis Ryan Bilirubin [Mass/Vol] 1.0 mg/dL Normal 0.2-1.0 [facility] Comment on above: Performed By: #### C RADHA, CMADM #### [facility] [address] [place] [address] [address] Davis Ryan Calcium [Mass/Vol] 9.1 mg/dL Normal 8.5-10.1 [facility] Comment on above: Performed By: #### C RADHA, CMADM #### [facility] [address] [place] [address] [address] Davis Ryan Chloride [Moles/Vol] 100 mmol/L Normal 98-107 [facility] Comment on above: Performed By: #### C MP, CMADM #### [facility] [address] [place] [address] [address] Davis Ryan CO2 [Moles/Vol] 25.4 mmol/L Normal 21.0-32.0 [facility] Comment on above: Performed By: #### C MP, CMADM #### [facility] [address] [place] [address] [address] Davis Ryan Creatinine [Mass/Vol] 0.71 mg/dL Normal 0.70-1.30 [facility] Comment on above: Performed By: #### C RADHA, CMADM #### [facility] [address] [place] [address] [address] Davis Ryan EGFR-AF EQUATORIAL GUINEAN >60 Normal >=60 [facility] Comment on above: Performed By: #### C RADHA, CMADM #### [facility] [address] [place] [address] [address] Davis Ryan EGFR-NON AF EQUATORIAL GUINEAN >60 Normal >=60 [facility] Comment on above: Performed By: #### C RADHA, CMADM #### [facility] [address] [place] [address] [address] Davis Ryan Globulin (S) [Mass/Vol] 3.9 g/dL Normal [facility] Comment on above: Performed By: #### C MP, CMADM #### [facility] [address] [place] [address] [address] Davis Ryan Glucose [Mass/Vol] 136 mg/dL Critically high 74-106 [facility] Comment on above: Performed By: #### C RADHA, CMADM #### [facility] [address] [place] [address] [address] Davis Ryan Potassium [Moles/Vol] 4.1 mmol/L Normal 3.5-5.1 [facility] Comment on above: Result Comment: spec imen slightly hemolysed, result may be spurious. Performed By: #### C MP, CMADM #### [facility] [address] [place] [address] [address] Davis Ryan Protein [Mass/Vol] 7.5 g/dL Normal 6.4-8.2 [facility] Comment on above: Performed By: #### C RADHA, CMADM #### [facility] [address] [place] [address] Dr. Davis Ryan Sodium [Moles/Vol] 135 mmol/L Critically low 136-145 [facility] Comment on above: Performed By: #### C RADHA, CMADM #### [facility] [address] [place] [address] Dr. Davis Ryan Urea nitrogen [Mass/Vol] 8.0 mg/dL Normal 7.0-18.0 [facility] Comment on above: Performed By: #### C RADHA, CMADM #### [facility] [address] [place] [address] Dr. Davis Ryan Urea nitrogen/Creatinin e [Mass ratio] 11.3 mg/mg Normal [facility] Comment on above: Performed By: #### C RADHA, CMADM #### [facility] [address] [place] [address] Dr. Davis Ryan XR CHEST 2 Von 05-29-2022 XR CHEST 2 V EXAMINATION: XR CHES T 2 V, 05/29/2022 4:40 PM EDT HISTORY: Chest pain COMPARISON: 02/10/2018 TECHNIQUE: Chest x-ray: Two views. FINDINGS: There is right upper lobe pleural thickening versus loculated effusion. A density is seen in the right upper lobe extending from the hilum to the periphery along the minor fissure. Hazy density in the right lung apex which may represent an infiltrate. Cardiomediastinal silhouette is unremarkable. Visualized osseous structures are unremarkable. IMPRESSION: Right upper lobe interstitial and airspace opacities with right upper lobe pleural thickening versus loculated effusion. Further evaluation with chest CT is recommended. Electronically authenticated by: AMBIKA CARVER Date: 2022-05-29 17:31 Normal [facility] Office Visit (Cardiology)on 03-03-2022 Follow-up visit Diagnoses/Problems Assessed CHF (congestive heart failure) (428.0) (I50.9) HTN (hypertension) (401.9) (I10) Heart failure with preserved left ventricular function (428.9) (I50.30) Class 2 obesity with body mass index (BMI) of 39.0 to 39.9 in adult (278.00,V85.39) (E66.9,Z68.39) Current smoker (305.1) (F17.200) 1 PPD Muscle cramp (729.82) (R25.2) Orders CHF (congestive heart failure), Heart failure with preserved left ventricular function, HTN (hypertension) Basic Metabolic Panel; Status:Active - Retrospective Authorization; Requested for:03Mar2022; Brain Natriuretic Peptide BNP; Status:Active - Retrospective Authorization; Requested for:03Mar2022; CHF (congestive heart failure), HTN (hypertension) Magnesium, Serum; Status:Active - Retrospective Authorization; Requested for:03Mar2022; Class 2 obesity with body mass index (BMI) of 39.0 to 39.9 in adult Healthy Weight Tips; Status:Complete - Retrospective Authorization; Done: 03Mar2022 Some eating tips that can help you lose weight.; Status:Complete - Retrospective Authorization; Done: 03Mar2022 HTN (hypertension) Start: Losartan Potassium 50 MG Oral Tablet; TAKE 1 TABLET DAILY Renew: Furosemide 20 MG Oral Tablet; TAKE 1 TABLET DAILY SocHx: Current smoker You need to stop smoking. Though it is not easy, more than half of all adult smokers have quit. We encourage you to write down all the reasons you should quit smoking and set a quit date for yourself. Ask us how we can help. You may also call 3-788-UZIENOW for free resources and assistance.; Status:Complete - Retrospective Authorization; Done: 03Mar2022 Tobacco Use Screening; Status:Complete; Done: 03Mar2022 Patient Instructions Please bring all medicines, vitamins, and herbal supplements with you when you come to the office. Prescriptions will not be filled unless you are compliant with your follow up appointments or have a follow up appointment scheduled as per instruction of your physician. Refills should be requested at the time of your visit. Follow up in [9 ] months Chief Complaint RAVIN JULIEN is being seen for a 9 month follow-up of. History of Present Illness Patient returns in follow-up of problems as noted. He is doing well. His heart failure symptoms have resolved and he denies dyspnea orthopnea PND and he also notes that his leg edema had resolved with current therapy. He curiously complaints of itchy skin. I advised him it could be related to the J CARLOS inhibitor therapy because of this we will stop it and substitute losartan in its place. He is also experiencing some muscle cramps and because of this and the fact he is on diuretics we will check a electrolyte panel, magnesium, and also a B natruretic peptide to evaluate the heart failure. In regards to his blood pressure is now satisfactory. Lipids are satisfactory. He is a nondiabetic. He continues to smoke and the merits of smoking cessation as well as diet and weight loss were advocated. Surgical History Problems History of Carpal tunnel surgery Denied: History of Colonoscopy History of Tonsillectomy Current Meds Medication NameInstruction Furosemide 20 MG Oral TabletTAKE 1 TABLET DAILY. Lisinopril 10 MG Oral TabletTAKE 1 TABLET DAILY. Allergies Medication No Known Drug Allergies Recorded By: Katie Sanchez; 02/21/2021 9:34:18 AM Social History Problems Caffeine use (V49.89) (Z78.9) 2 liter of pop daily Current smoker (305.1) (F17.200) 1 PPD No alcohol use No illicit drug use Review of Systems Constitutional: not feeling tired. Eyes: no eyesight problems. ENT: no hearing loss and no nosebleeds. Cardiovascular: no intermittent leg claudication and as noted in HPI. Respiratory: no chronic cough and no shortness of breath. Gastrointestinal: no change in bowel habits and no blood in stools. Genitourinary: no urinary frequency and no hematuria. Skin: no skin rashes. Neurological: no seizures and no frequent falls. Psychiatric: no depression and not suicidal. All other systems have been reviewed and are negative for complaint. Vitals Vital Signs Recorded: 03Mar2022 02:13PM Heart Rate88, R Radial Iapstsua660, LUE, Sitting Ishvmwsoy17, LUE, Sitting Height6 ft 1 in Bgbkpp209 lb BMI Phzhgigani10.45 kg/m2 BSA Calculated2.55 Tobacco Usea) Yes Patient encouraged to stop using tobacco productsYes PHQ-2 #1. Over the last 2 weeks have you felt down, depressed or hopeless? (If yes, answer PHQ-9 below)Yes PHQ-2 #2. Over the last 2 weeks have you felt little interest or pleasure in doing things? (If yes, answer PHQ-9 below)Yes Falls Screening (Age 18+)c) Not medically indicated PHQ-9 #1. Little interest or pleasure in doing things2-More than half the days PHQ-9 #2. Feeling down, depressed, or hopelesS2-More than half the days PHQ-9 #3. Trouble falling or staying asleep, or sleeping too much2-More than half the days PHQ-9 #4. Feeling tired or having little energy3-Near (more content not included)... Normal [facility] Tobacco Screening.on 023 Adult depression screening assessment Yes [facility] [address] DO Work Phone: [phone] Adult depression screening assessment Moderate (10-14) [facility] 250 DO Work Phone: [phone] Fall risk assessment c) Not medically indicated [facility] [facility] 250 DO Work Phone: Tobacco use status CP a) Yes [facility] 250 DO Work Phone: Tobacco Screening. Yes [facility] [employer] 250 DO Work Phone: Tobacco Screening. 2-More than half the days [facility] 250 DO Work Phone: Tobacco Screening. 3-Nearly every day [facility] 250 DO Work Phone: Tobacco Screening. 0-Not at all [facility] [employer] 250 DO Work Phone: Tobacco Screening. Somewhat Difficult [facility] [facility] DO Work Phone: Office Visit (Cardiology)on 05-21-2021 Follow-up visit Diagnoses/Problems Assessed HTN (hypertension) (401.9) (I10) Sleep apnea (780.57) (G47.30) Heart failure with preserved left ventricular function (428.9) (I50.30) Morbid obesity with BMI of 40.0-44.9, adult (278.01,V85.41) (E66.01,Z68.41) Current smoker (305.1) (F17.200) 1 PPD Orders HTN (hypertension) Renew: Furosemide 20 MG Oral Tablet; TAKE 1 TABLET DAILY Renew: Lisinopril 10 MG Oral Tablet; TAKE 1 TABLET DAILY Morbid obesity with BMI of 40.0-44.9, adult Healthy Weight Tips; Status:Complete - Retrospective Authorization; Done: 21May2021 SocHx: Current smoker You need to quit smoking.; Status:Complete - Retrospective Authorization; Done: 21May2021 You need to stop smoking. Though it is not easy, more than half of all adult smokers have quit. We encourage you to write down all the reasons you should quit smoking and set a quit date for yourself. Ask us how we can help. You may also call 1-753-VTMZBellcoNOW for free resources and assistance.; Status:Complete - Retrospective Authorization; Done: 21May2021 Tobacco Use Screening; Status:Complete; Done: 21May2021 Patient Instructions By signing my name below, Urmila Medina LPN, Scribe, attest that this documentation has been prepared under the direction and in the presence of Dr. Fermin Wall MD. All medical record entries made by the Mik were at my direction and personally dictated by me. I have reviewed the chart and agree that the record accurately reflects my personal performance of the history, physical exam, discussion and plan. Please bring all medicines, vitamins, and herbal supplements with you when you come to the office. Prescriptions will not be filled unless you are compliant with your follow up appointments or have a follow up appointment scheduled as per instruction of your physician. Refills should be requested at the time of your visit. Follow up in 9 months Chief Complaint ARVIN JULIEN is being seen for a 4 month follow-up of. History of Present Illness Returns in follow-up of problems as noted. In the interim he is done well. Hypertension is well controlled. His test results from the [facility] were reviewed. They basically were normal. There might actually be mild diastolic dysfunction but otherwise no evidence of coronary disease, no valve disease, no systolic dysfunction. Because of all the above we believe his medical therapy to be adequate and appropriate. He advises me that he is being treated now for sleep apnea with nocturnal CPAP and he is improving. He has more energy during the day less shortness of breath and overall his functional status is improved and because of all the above we suggest continued therapy as is. We discussed the merits of diet lifestyle modification exercise weight loss and smoking cessation. Surgical History Problems History of Carpal tunnel surgery Denied: History of Colonoscopy History of Tonsillectomy Current Meds Medication NameInstruction Furosemide 20 MG Oral TabletTAKE 1 TABLET DAILY. Lisinopril 10 MG Oral TabletTAKE 1 TABLET DAILY. Potassium Chloride ER 10 MEQ Oral Tablet Extended ReleaseTAKE 1 TABLET DAILY. Patient did not bring medication list or bottles. Updated verbally with patient Allergies Medication No Known Drug Allergies Recorded By: Katie Sanchez; 02/21/2021 9:34:18 AM Social History Problems Caffeine use (V49.89) (Z78.9) 2 liter of pop daily Current smoker (305.1) (F17.200) 1 PPD No alcohol use No illicit drug use Review of Systems Constitutional: not feeling tired. Eyes: no eyesight problems. ENT: no hearing loss and no nosebleeds. Cardiovascular: no intermittent leg claudication and as noted in HPI. Respiratory: no chronic cough and no shortness of breath. Gastrointestinal: no change in bowel habits and no blood in stools. Genitourinary: no urinary frequency and no hematuria. Skin: no skin rashes. Neurological: no seizures and no frequent falls. Psychiatric: no depression and not suicidal. All other systems have been reviewed and are negative for complaint. Vitals Vital Signs Recorded: 21May2021 01:42PM Heart Rate76, R Radial Jdrclxap142, LUE, Sitting Qlaoqagmu99, LUE, Sitting Height6 ft 1 in Majmza443 lb BMI Tyrwivdddw55.03 kg/m2 BSA Calculated2.6 Tobacco Usea) Yes Patient encouraged to stop using tobacco productsYes Physical Exam Constitutional: alert and in no acute distress. Eyes: no erythema, swelling or discharge from the eye . Neck: neck is supple, symmetric, trachea midline, no masses and no thyromegaly . Pulmonary: no increased work of breathing or signs of respiratory distress and lungs clear to auscultation. Cardiovascular: carotid pulses 2+ bilaterally with no bruit , JVP was normal, no thrills , regular rhythm, normal S1 and S2, no murmurs , pedal pulses 2+ bilaterally and no edema . Abdomen: abdomen non-tender, no masses and no hepatomegaly . Skin: skin warm and dry, normal skin (more content not included)... Normal [facility] Tobacco Screening.on 022 Tobacco use status [facility] a) Yes -[facility] [address] DO Work Phone: Tobacco Screening. Yes [facility] [address] DO Work Phone: Vital Signs Date Time Vital Sign Value Performing Clinician Facility 07-20-2023 13:54-0400 Body height 185.4 cm Fermin Wall MD Work Phone: [facility] 07-20-2023 13:54-0400 Body mass index (BMI) [Ratio] 38.13 kg/m2 Fermin Wall MD Work Phone: [facility] 07-20-2023 13:54-0400 Body weight 131.09 kg Fermin Wall MD Work Phone: [facility] 07-20-2023 13:54-0400 Diastolic blood pressure 66 mm[Hg] Fermin Wall MD Work Phone: [facility] 07-20-2023 13:54-0400 Heart rate 108 /min Fermin Wall MD Work Phone: [facility] 07-20-2023 13:54-0400 Systolic blood pressure 118 mm[Hg] Fermin Wall MD Work Phone: [facility] 05-17-2023 10:20-0400 Body height 185.4 cm Fermin Wall MD Work Phone: [facility] 05-17-2023 10:20-0400 Body mass index (BMI) [Ratio] 39.98 kg/m2 Fermin Wall MD Work Phone: [facility] 05-17-2023 10:20-0400 Body weight 137.44 kg Fermin Wall MD Work Phone: [facility] 05-17-2023 10:20-0400 Diastolic blood pressure 92 mm[Hg] Fermin Wall MD Work Phone: [facility] 05-17-2023 10:20-0400 Heart rate 127 /min Fermin Wall MD Work Phone: [facility] 05-17-2023 10:20-0400 Systolic blood pressure 138 mm[Hg] Fermin Wall MD Work Phone: [facility] 01-07-2023 10:45-0500 Body height 182.[address] 01-07-2023 10:45-0500 Body mass index (BMI) [Ratio] 40.42 kg/m2 [address] 01-07-2023 10:45-0500 Body weight 135.[address] 01-07-2023 10:45-0500 Diastolic blood pressure 106 mm[Hg] [address] 01-07-2023 10:45-0500 Systolic blood pressure 140 mm[Hg] [address] 12-01-2022 13:29-0400 Body height 182.9 cm Fermin Wall MD Work Phone: [facility] 12-01-2022 13:29-0400 Body mass index (BMI) [Ratio] 40.42 kg/m2 Fermin Wall MD Work Phone: [facility] 12-01-2022 13:29-0400 Body weight 135.17 kg Fermin Wall MD Work Phone: [facility] 12-01-2022 13:29-0400 Diastolic blood pressure 70 mm[Hg] Fermin Wall MD Work Phone: [facility] 12-01-2022 13:29-0400 Heart rate 80 /min Fermin Wall MD Work Phone: [facility] 12-01-2022 13:29-0400 Systolic blood pressure 140 mm[Hg] Fermin Wall MD Work Phone: [facility] 08-03-2022 11:08-0400 Diastolic blood pressure 68 mm[Hg] Izzy Melecio ArangoEllen Work Phone: [facility] 250 DO Work Phone: 08-03-2022 11:08-0400 Systolic blood pressure 104 mm[Hg] Izzy Melecio ArangoEllen Work Phone: [facility] 250 DO Work Phone: 08-03-2022 11:04-0400 Body height 185.42 cm Izzy Majano Ellen Work Phone: [facility] 250 DO Work Phone: 08-03-2022 11:04-0400 Body mass index (BMI) [Ratio] 38.13 kg/m2 Izzy Melecio ArangoEllen Work Phone: [facility] 250 DO Work Phone: 08-03-2022 11:04-0400 Body surface area Derived from formula 2.52 m2 Izzy Melecio ArangoEllen Work Phone: [facility] [place] 250 DO Work Phone: 08-03-2022 11:04-0400 Body weight 131.09 kg Izzy Melecio ArangoEllen Work Phone: [facility] 250 DO Work Phone: 08-03-2022 11:04-0400 Diastolic blood pressure 100 mm[Hg] Izzy Majano Ellen Work Phone: [facility] 250 DO Work Phone: 08-03-2022 11:04-0400 Heart rate 98 /min Izzy Arangoault Work Phone: [facility] 250 DO Work Phone: 08-03-2022 11:04-0400 Systolic blood pressure 102 mm[Hg] Izzy J Ellen Work Phone: [facility] 250 DO Work Phone: 07-13-2022 14:30-0400 Body height 185.42 cm Izzy Arangoault Work Phone: [facility] 250 DO Work Phone: 07-13-2022 14:30-0400 Body mass index (BMI) [Ratio] 38.66 kg/m2 Izzy Arangoault Work Phone: [facility] 250 DO Work Phone: 07-13-2022 14:30-0400 Body surface area Derived from formula 2.53 m2 Izzy Arangoault Work Phone: [facility] 250 DO Work Phone: 07-13-2022 14:30-0400 Body weight 132.9 kg Izzy Arangoault Work Phone: [facility] 250 DO Work Phone: 07-13-2022 14:30-0400 Diastolic blood pressure 100 mm[Hg] Izzy Arangoault Work Phone: [facility] 250 DO Work Phone: 07-13-2022 14:30-0400 Heart rate 97 /min Izzy Arangoault Work Phone: [facility] 250 DO Work Phone: 07-13-2022 14:30-0400 Systolic blood pressure 122 mm[Hg] Izzy Arangoault Work Phone: [facility] 250 DO Work Phone: 03-03-2022 14:13-0500 Body height 185.42 cm Izzy Arangoault Work Phone: [facility] 250 DO Work Phone: 03-03-2022 14:13-0500 Body mass index (BMI) [Ratio] 39.45 kg/m2 Izzy Arangoault Work Phone: [facility] 250 DO Work Phone: 03-03-2022 14:13-0500 Body surface area Derived from formula 2.55 m2 Izzy Melecio ArangoEllen Work Phone: [facility] 250 DO Work Phone: 03-03-2022 14:13-0500 Body weight 135.63 kg Izzy Majano Ellen Work Phone: [facility] 250 DO Work Phone: 03-03-2022 14:13-0500 Diastolic blood pressure 78 mm[Hg] Izzy Majano Ellen Work Phone: [facility] 250 DO Work Phone: 03-03-2022 14:13-0500 Heart rate 88 /min Izzy J Ellen Work Phone: [facility] 250 DO Work Phone: 03-03-2022 14:13-0500 Systolic blood pressure 132 mm[Hg] Izzy Melecio Ellen Work Phone: [facility] 250 DO Work Phone: 03-03-2022 14:13-0500 11 1 Izzy Arangoault Work Phone: [facility] 250 DO Work Phone: Comment on above: PHQ-9 TS 05-21-2021 13:42-0400 Body height 185.42 cm Izzygriffin Arangoault Work Phone: [facility] 250 DO Work Phone: 05-21-2021 13:42-0400 Body mass index (BMI) [Ratio] 41.03 kg/m2 Izzy Hughes Work Phone: [facility] 250 DO Work Phone: 05-21-2021 13:42-0400 Body surface area Derived from formula 2.6 m2 Izzy Hughes Work Phone: [facility] 250 DO Work Phone: 05-21-2021 13:42-0400 Body weight 141.07 kg Izzy Hughes Work Phone: [facility] 250 DO Work Phone: 05-21-2021 13:42-0400 Diastolic blood pressure 72 mm[Hg] Izzy Hughes Work Phone: [facility] 250 DO Work Phone: 05-21-2021 13:42-0400 Heart rate 76 /min Izzygriffin Hughes Work Phone: [facility] 250 DO Work Phone: 05-21-2021 13:42-0400 Systolic blood pressure 112 mm[Hg] Izzy Hughes Work Phone: [facility] 250 DO Work Phone: 05-19-2021 11:15-0400 Body height 180.34 cm Johnnie Bruce Other [facility] Other 05-19-2021 11:15-0400 Body mass index (BMI) [Ratio] 43.09 kg/m2 Johnnie Bruce Other [facility] Other 05-19-2021 11:15-0400 Body temperature 96 [degF] Johnnie Bruce Other [facility] Other 05-19-2021 11:15-0400 Body weight 140.16 kg Johnnie Bruce Other [facility] Other 05-19-2021 11:15-0400 Diastolic blood pressure 85 mm[Hg] Johnnie Bruce Other [facility] Other 05-19-2021 11:15-0400 SaO2% (BldA) [Mass fraction] 96 % Johnnie Teo Other [facility] Other 05-19-2021 11:15-0400 Systolic blood pressure 132 mm[Hg] Johnnie Bruce Other [facility] Other Encounters Encounter Date Encounter Type Care Provider Facility Start: 10-31-2023 End: 10-31-[address] [facility] Start: 10-26-2023 End: 10-26-2023 ambulatory UNKNOWN PHYSICIAN [facility] Start: 10-25-2023 End: 10-25-2023 ambulatory UNKNOWN PHYSICIAN [facility] Start: 10-18-2023 End: 10-18-2023 ambulatory [facility] Start: 10-17-2023 End: 10-17-2023 ambulatory [facility] Start: 10-11-2023 End: 10-11-2023 ambulatory UNKNOWN PHYSICIAN [facility] Start: 10-10-2023 End: 10-10-2023 ambulatory [facility] Start: 10-04-2023 End: 10-04-2023 [facility] Start: 10-03-2023 End: 10-03-2023 ambulatory [facility] Start: 09-21-2023 End: 09-21-2023 [facility] Start: 09-20-2023 End: 09-20-2023 ambulatory [facility] Start: 09-16-2023 ambulatory RYAN Leona GONZALEZ [facility] Start: 09-16-2023 End: 09-22-2023 ambulatory [facility] Start: 09-14-2023 End: 09-14-2023 ambulatory [facility] Start: 09-13-2023 End: 09-13-2023 ambulatory [facility] Start: 09-12-2023 End: 09-12-2023 ambulatory [facility] Start: 09-06-2023 End: 09-06-2023 ambulatory [facility] Start: 09-05-2023 End: 09-05-2023 ambulatory [facility] Start: 09-05-2023 End: 09-05-2023 ambulatory [facility] Start: 08-30-2023 End: 09-22-2023 ambulatory CONNOR Delgadillo [facility] Start: 08-29-2023 End: 08-29-2023 ambulatory [facility] Start: 08-23-2023 End: 08-23-2023 ambulatory [facility] Start: 08-22-2023 End: 08-22-2023 ambulatory UNKNOWN PHYSICIAN [facility] Start: 08-16-2023 End: 08-22-2023 ambulatory NO PCP NO PCP [facility] Start: 08-15-2023 End: 08-22-2023 ambulatory CONNOR Delgadillo [facility] Start: 08-08-2023 End: 08-08-2023 ambulatory CONNOR Delgadillo [facility] Start: 08-05-2023 End: 08-05-2023 ambulatory NO PCP NO PCP [facility] Start: 07-29-2023 End: 07-29-2023 ambulatory CONNOR Delgadillo [facility] Start: 07-20-2023 End: 07-20-2023 Office outpatient visit 25 minutes Fermin Wall MD Work Phone: [facility] Comment on above: Paroxysmal atrial fi brillation (Multi); High risk medication use; Former smoker Start: 07-20-2023 End: 07-20-2023 ambulatory [facility] [address] Amb[facility] Start: 07-05-2023 End: 07-05-2023 ambulatory Fermin Wall Facility:[facility] Start: 06-16-2023 End: 06-16-2023 ambulatory CONNOR GONZALEZ [facility] Start: 05-31-2023 End: 05-31-2023 ambulatory [facility] Start: 05-17-2023 End: 05-17-2023 Orders Only Nathalia Jean-Baptiste MD Work Phone: [facility] - Interventional Radiology Start: 05-17-2023 End: 05-17-2023 Office outpatient visit 25 minutes Fermin Wall MD Work Phone: [facility] Comment on above: Preop cardiovascular exam; Diastolic congestive heart failure, unspecified HF chronicity (CMS/HCC); Primary hypertension; Paroxysmal atrial fibrillation (CMS/HCC); BMI 39.0-39.9,adult; High risk medication use; Former smoker Start: 05-17-2023 End: 05-17-2023 Patient encounter status Fermin Wall MD Work Phone: [facility] Start: 05-17-2023 End: 05-17-2023 Encounter for preprocedural cardiovascular examination [facility] [address] Ambulatory Start: 01-07-2023 End: 01-07-2023 Subsequent hospital visit by physician Nery Hoff Echo/Vasc Room 2 [facility] Comment on above: Diastolic congestive heart failure, unspecified HF chronicity (CMS/HCC); Primary hypertension; Paroxysmal atrial fibrillation (CMS/HCC) Start: 01-07-2023 End: 01-07-2023 ambulatory [facility] Start: 12-01-2022 End: 12-01-2022 Office outpatient visit 15 minutes Fermin Wall MD Work Phone: [facility] Comment on above: Diastolic congestive heart failure, unspecified HF chronicity (CMS/HCC) (Primary Dx); Primary hypertension; Paroxysmal atrial fibrillation (CMS/HCC); Malignant neoplasm of hilus of lung, unspecified laterality (CMS/HCC) Start: 12-01-2022 End: 12-01-2022 ambulatory [facility] [address] Amb[facility] Start: 08-03-2022 Office outpatient vi sit 25 minutes Izzy Hughes Work Phone: [facility] DO Work Phone: Start: 07-23-2022 End: 07-24-2022 ambulatory ALESSANDRO PIÑA [facility] Start: 07-16-2022 End: 07-17-2022 ambulatory [facility] Start: 07-09-2022 End: 07-10-2022 ambulatory [facility] Start: 06-11-2022 End: 06-11-2022 ambulatory KATIE BAEZ Facility:[facility] Start: 06-11-2022 End: 06-11-2022 Patient encounter procedure Katie Baez APRN.CNP Work Phone: [facility] [place] Comment on above: Seborrheic keratosis (Primary Dx); Lentigines; Multiple benign nevi; Scott angioma; Family history of skin cancer; Dermatofibroma; Telangiectasia of skin Start: 05-29-2022 End: 05-29-2022 ambulatory JAY LINDER . Facility: Start: 03-03-2022 Office outpatient vi sit 25 minutes Izzy Huhges Work Phone: [facility] 250 DO Work Phone: Start: 03-03-2022 ambulatory Ms. Izzy Vela Ellen Facility: Start: 11-12-2021 End: 11-12-2021 Patient encounter procedure PHYSICIAN NO [facility] Start: 11-04-2021 End: 11-04-2021 Patient encounter procedure PHYSICIAN NO [facility] Start: 10-14-2021 End: 10-14-2021 ambulatory Danuta Centeno Other [place] [employer] Other Start: 10-14-2021 FQ visit new patient Danuta Zurita y [facility] Start: 10-12-2021 End: 10-12-2021 ambulatory IZZY HUGHES Facility:H1 Start: 05-21-2021 ambulatory Ms. Izzy Hughes Facility:[id number] Start: 05-21-2021 Office outpatient vi sit 15 minutes Izzy Hughes Work Phone: -[facility] 250 DO Work Phone: Start: 05-19-2021 End: 05-19-2021 ambulatory Johnnie Bruce Other [place] [employer] Other Start: 05-19-2021 Office outpatient vi sit 25 minutes Johnnie Bruce [facility] Procedures Date Procedure Procedure Detail Performing Clinician Start: 08-16-2023 Chemotherapy Chemotherapy CONNOR GONZALEZ Start: 08-05-2023 Follow-up visit Follow-up CONNOR GONZALEZ Start: 07-20-2023 Ecg routine ecg w/le ast 12 lds w/i&r Fermin Wall MD Work Phone: Start: 05-17-2023 ECG 12-LEAD FERMIN HERCULES Start: 05-17-2023 FOLLOW UP IN CARDIOLOGY FERMIN WALL Start: 05-17-2023 Ecg routine ecg w/le ast 12 lds w/i&r Fermin Wall MD Work Phone: Start: 05-02-2023 Thyrotropin [Units/volume] in Serum or Plasma Fermin Wall MD Work Phone: Start: 01-07-2023 TRANSTHORACIC ECHO ( TTE) COMPLETE FERMIN WALL Start: 01-07-2023 Echo tthrc r-t 2d w/wom-mode compl spec&colr d Fermin Wall MD Work Phone: Start: 11-04-2021 Plain X-ray of left hand PHYSICIAN NO FAMILY Start: 04-01-2020 Lipid 1996 panel - S satya or Plasma Fermin Wall MD Work Phone: Decompression of med leif nerve Izzy Hughes Work Phone: Tonsillectomy Izzy kowalski Work Phone: NEGATED: Highlighted row has not occurred! Colonoscopy Izzy bajwa Work Phone: Plan of Treatment Date Care Activity Detail Author Start: 10-13-2031 DTaP,Tdap and Td Vaccines (3 - Td or Tdap) DTaP,Tdap and Td Vaccines (3 - Td or Tdap) [facility] Start: 10-13-2031 DTaP/Tdap/Td Vaccines (3 - Td or Tdap) DTaP/Tdap/Td Vaccines (3 - Td or Tdap) [facility] Start: 01-18-2028 Zoster Vaccines (1 of 2) Zoster Vaccines (1 of 2) [facility] Start: 04-01-2025 Lipid panel Lipid Panel [facility] Start: 04-01-2025 LIPID SCREEN LIPID SCREEN [facility] Start: 05-01-2024 Thyroid stimulating hormone measurement TSH Level [facility] Start: 01-08-2024 Echocardiography Echocardiogram [facility] Start: 10-26-2023 End: 10-26-2023 Patient encounter procedure 10/26/2023 2:50 PM EDT Office Visit [address] [place] [id number] Jose Izaguirre MD [address] [facility] [address] [place] [address] [facility] Start: 10-23-2023 Influenza vaccination Influenza Vaccine (Season Ended) [facility] Start: 07-20-2023 End: 07-20-2023 Patient encounter procedure 07/20/2023 2:00 PM EDT Office Visit [place] [id number] [facility] [address] [place] [address] Fermin Wall MD [address] [facility] [address] [place] [address] [facility] Start: 07-16-2023 Adult BMI Screening Adult BMI Screening [facility] Start: 07-16-2023 Echocardiography Echocardiogram [facility] Start: 07-06-2023 Tobacco Screening Tobacco Screening [facility] Start: 07-04-2023 End: 05-16-2025 Cardioversion External Cardioversion External Cardiac Services Routine Paroxysmal atrial fibrillation (CMS/HCC) High risk medication use Expected: 07/04/2023 (Approximate), Expires: 05/16/2025 [facility] Service Area Work Phone: Comment on above: Expected: 07/04/2023 (Approximate), Expi res: 05/16/2025 Start: 05-17-2023 End: 05-17-2023 Patient encounter procedure 05/17/2023 10:20 AM EDT Office Visit [place] [id number] [facility] [address] [place] [phone] Fermin Wall MD [address] [facility] [address] [place] [address] [facility] Start: 01-07-2023 End: 01-07-2023 Patient encounter procedure 01/07/2023 10:45 AM EST Appointment [facility] [address] [facility] [address] [place] [phone] [facility] Start: 12-01-2022 FUV, Provider: Fermin Wall, Status: Pen, Time: 1:30 PM FUV, Provider: Fermin Wall, Status: Meir, Time: 1:30 PM [facility] 250 DO Work Phone: Start: 12-01-2022 End: 12-01-2024 Heart Transthoracic Transthoracic Echo (TTE) Complete Echocardiography Routine Diastolic congestive heart failure, unspecified HF chronicity (CMS/HCC) Primary hypertension Paroxysmal atrial fibrillation (CMS/HCC) Expected: 12/01/2022 (Approximate), Expires: 12/01/2024 [facility] Service Area Work Phone: Comment on above: Expected: 12/01/2022 (Approximate), Expi res: 12/01/2024 Start: 10-22-2022 COVID-19 Vaccine ( season) COVID-19 Vaccine ( season) [facility] Start: 10-22-2022 Influenza vaccination [facility] Start: 03-03-2022 FUV, Provider: Fermin Wall, Status: Pen, Time: 2:00 PM FUV, Provider: Fermin Wall, Status: Pen, Time: 2:00 PM [facility] 250 DO Work Phone: Start: 02-21-2022 DEPRESSION ASSESSMENT DEPRESSION ASSESSMENT [facility] Start: 09-13-2020 Diabetes mellitus screening Diabetes Screening [facility] Start: 1997 Hepatitis B Vaccines (1 of 3 - 19+ 3-dose series) Hepatitis B Vaccines (1 of 3 - 19+ 3-dose series) [facility] Start: 1997 Urine microalbumin profile DTAP,TDAP,TD (1 - Tdap) [facility] Start: 01-18-1996 Adult BMI Follow Up Plan Adult BMI Follow Up Plan [facility] Start: 01-18-1996 HEPATITIS C SCREENING HEPATITIS C SCREENING [facility] Start: 01-18-1996 Hepatitis C screening Hepatitis C Screening [facility] Start: 01-18-1996 HIV SCREENING HIV SCREENING [facility] Start: 1990 Depression Screening Depression Screening [facility] Start: 01-18-1984 PNEUMOCOCCAL (1 - PCV) PNEUMOCOCCAL (1 - PCV) [facility] Start: 01-18-1984 Pneumococcal Vaccine: Pediatrics (0 to 5 Years) and At-Risk Patients (6 to 64 Years) (1 - PCV) Pneumococcal Vaccine: Pediatrics (0 to 5 Years) and At-Risk Patients (6 to 64 Years) (1 - PCV) [facility] Start: 01-18-1984 Pneumococcal Vaccine: Pediatrics (0 to 5 Years) and At-Risk Patients (6 to 64 Years) (1 of 2 - PCV) Pneumococcal Vaccine: Pediatrics (0 to 5 Years) and At-Risk Patients (6 to 64 Years) (1 of 2 - PCV) [facility] Start: 1979 MMR Vaccines (1 of 1 - Standard series) MMR Vaccines (1 of 1 - Standard series) [facility] Start: 1978 COVID-19 VACCINE (#1) COVID-19 VACCINE (#1) [facility] Start: 1978 Creatinine measurement Creatinine Level [facility] Start: 1978 HEPATITIS B (1 of 3 - 3-dose series) HEPATITIS B (1 of 3 - 3-dose series) [facility] Start: 1978 Hepatitis B Vaccines (1 of 3 - 3-dose series) Hepatitis B Vaccines (1 of 3 - 3-dose series) [facility] Start: 1978 HIV screening HIV Screening [facility] Start: 1978 Potassium measurement Potassium Level [facility] Start: 1978 Screening for malignant neoplasm of colon [facility] Start: 1978 Yearly Adult Physical Yearly Adult Physical [facility] End: 01-07-2023 [facility] Service Area Work Phone: Comment on above: Once for 1 Occurrences starting 01/08/20 until 01/07/2023 Immunizations Immunization Date Immunization Notes Care Provider Candida santiago 10-12-2021 diphtheria, tetanus toxoids and pertussis vaccine Izzy Hughes Work Phone: [facility] 250 DO Work Phone: 08-05-2014 tetanus toxoid, reduced diphtheria toxoid, and acellular pertussis vaccine, adsorbed Izzy Hughes Work Phone: [facility] 250 DO Work Phone: NEGATED: Highlighted row has not occurred!02-08-2017 influenza virus vaccine, unspecified formulation Nathalia Jean-Baptiste MD Work Phone: [employer] Comment on above: Deferred: Patient Re fused Payers Date Payer Category Payer Self-pay [id number] 2022 Medicaid [facility] MEDICAID [facility] COMMUNITY PLAN MEDICAID [place] [id number] 2022-Present [phone] [address] [place] [address] Medicaid [id number] 2022 Private Health Insurance [id number]. [id number] 2016 Unknown [id number] 1978 Unknown [id number] 2.16.840.1.776916.3.579.2. 356 1978 Unknown [id number] 2.16.840.1.740082.3.579.2. 356 1978 Unknown [id number] 2.16.840.1.804077.3.579.2. 593 1978 Unknown [id number] 2.16.840.1.824698.3.579.2. 593 1978 Unknown [id number] 2.16.840.1.739418.3.579.2. 1286 1978 Unknown [id number] 2.16.840.1.150324.3.579.2. 1286 1978 Unknown [id number] 2.16.840.1.955541.3.579.2. 1286 1978 Unknown [id number] 2.16.840.1.939083.3.579.2. 1286 1978 Unknown [id number] 2.16.840.1.052473.3.579.2. 1244 1978 Unknown [id number] 2.16.840.1.629213.3.579.2. 1244 1978 Unknown [id number] 2.16.840.1.024212.3.579.2. 1244 1978 Unknown [id number] 2.16.840.1.492413.3.579.2. 1245 1978 Unknown [id number] 2.16.840.1.206656.3.579.2. 1285 1978 Unknown [id number] 2.16.840.1.051444.3.579.2. 1285 1978 Unknown [id number] 2.16.840.1.341688.3.579.2. 1285 1978 Unknown [id number] 2.16.840.1.654603.3.579.2. 1285 1978 Unknown [id number] 2.16.840.1.718407.3.579.2. 1285 1978 Unknown [id number] 2.16.840.1.425377.3.579.2. 1285 1978 Unknown [id number] 2.16840.1.282571.3.579.2. 1285 1978 Unknown [id number] 2.16.840.1.854627.3.579.2. 1285 1978 Unknown [id number] 2.16.840.1.307875.3.579.2. 1285 1978 Unknown [id number] 2.16.840.1.327849.3.579.2. 1285 1978 Unknown [id number] 2.16.840.1.278750.3.579.2. 1285 1978 Unknown [id number] 2.16.840.1.648167.3.579.2. 1285 1978 Unknown [id number] 2.16.840.1.655300.3.579.2. 1285 1978 Unknown [id number] 2.16.840.1.971569.3.579.2. 1285 1978 Unknown [id number] 2.16.840.1.766278.3.579.2. 1285 1978 Unknown [id number] 2.16.840.1.387102.3.579.2. 1285 1978 Unknown [id number] 2.16.840.1.863214.3.579.2. 1285 1978 Unknown [id number] 2.16.840.1.656187.3.579.2. 1285 1978 Unknown [id number] 2.16.840.1.601932.3.579.2. 1285 1978 Unknown [id number] 2.16.840.1.568704.3.579.2. 1285 1978 Unknown [id number] 2.16.840.1.733488.3.579.2. 1285 1978 Unknown [id number] 2.16.840.1.820169.3.579.2. 1285 1978 Unknown [id number] 2.840.1.284147.3.579.2. 1285 1978 Unknown [id number] 2.16.840.1.427512.3.579.2. 1285 1978 Unknown [id number] 2.16.840.1.668387.3.579.2. 1285 1978 Unknown [id number] 2.16.840.1.650674.3.579.2. 1285 1978 Unknown [id number] 2.16.840.1.378456.3.579.2. 1285 1978 Unknown [id number] 2.16.840.1.076824.3.579.2. 1285 1978 Unknown [id number] 2.16.840.1.459780.3.579.2. 1285 1978 Unknown [id number] 2.16.840.1.693112.3.579.2. 1285 1978 Unknown [id number] 2.16.840.1.090225.3.579.2. 1286 1959 Unknown [id number] 2.16.840.1.378183.19 1959 Unknown [id number] Unknown Unknown [id number] 2.16.840.1.038585.3.579.2. 531 Social History Date Type Detail Facility Start: 09-14-2019 End: 12-01-2022 Current smoker Current smoker [facility] Comment on above: 1 PPD; 2 liter of pop daily ; HALF 2 LITER liter o f pop daily; QUIT 04/2022; Start: 12-01-2022 End: 05-17-2023 Sex Assigned At [facility] Start: 1980 Sex Assigned At Male [facility] Start: 02-21-1990 Tobacco smoking stat [facility] Smokes tobacco daily [facility] Start: 02-21-1990 End: 04-21-2022 History of tobacco use Cigarette Smoker [facility] Start: 09-14-2019 End: 05-31-2022 Tobacco use and exposure Smokeless tobacco non-user [facility] Start: 06-11-2022 End: 07-05-2022 Alcohol intake Current non-drinker of alcohol (finding) [facility] Start: 12-01-2022 End: 07-20-2023 Tobacco smoking status NHIS Ex-smoker [facility] End: 04-21-2022 History of tobacco use Current smoker [facility] Work Phone: Start: 12-01-2022 End: 07-20-2023 Tobacco use and exposure User of smokeless tobacco [facility] Work Phone: History of tobacco use Chews Tobacco [facility] Work Phone: Start: 12-01-2022 End: 07-20-2023 Alcohol intake Lifetime non-drinker (finding) [facility] Work Phone: Start: 1980 Sex Assigned At Not on file [facility] Work Phone: Start: 11-21-2022 End: 07-20-2023 Exposure to SARS-CoV-2 (event) Not sure [facility] Adolescent depressio n screening assessment 1 [facility] Clinical Notes 05-19-2021 to 07-20-2023 Fermin Wall MD - 07/20/2023 2:00 PM EDTPatient InstructionsFermin Wall MD - 05/17/2023 10:20 AM EDTPatient InstructionsFermin Wall MD - 12/01/2022 1:30 PM EDTPatient Instructions Note Date & Type Note Facility 07-20-2023 History of Present illness Narrative Subjective Arvin Julien is a 43 y.o. male Chief Complaint Follow-up HPI Patient returns in follow-up of cardioversion. Cardioversion was successful and he stayed in rhythm for 3 days. He states during those 3 days he actually felt worse. He thought he could think more clearly but actually states he was really short of breath following the episcopal of sinus rhythm. He thereafter went out of rhythm. He now is atrial fibrillation with a controlled rate and he states he actually feels and breathes better out of rhythm. I explained to him and his mother that the failure of amiodarone at the dose provided suggest that restoring and maintaining rhythm is probably impossible. Amiodarone failed and I doubt any other antiarrhythmic would work. He is not a candidate for His bundle ablation with pacemaker implant nor is he a candidate for catheter ablation of atrial fibrillation because of his stage IV malignancy. Because of this I recommend instead rate control with antithrombotic therapy strategy and rationale was discussed and recommended and they agree to proceed. He will stop amiodarone and initiate diltiazem. He is advised to call if heart rate 60-100 on home check in which case we would, by phone, increase his diltiazem dosage. He and his mother were reminded of the merits of diet and weight loss as well as modest exercise and aerobic activity. Vitals: 07/20/23 1354 BP: 118/66 BP Location: Right arm Patient Position: Sitting Pulse: 108 Weight: 131 kg (289 lb) Height: 1.854 m (6' 1 ) EKG done in office today Objective Physical Exam Constitutional: Appearance: Normal appearance. HENT: Nose: Nose normal. Neck: Vascular: No carotid bruit. Cardiovascular: Rate and Rhythm: Normal rate. Pulses: Normal pulses. Heart sounds: Normal heart sounds. Pulmonary: Effort: Pulmonary effort is normal. Abdominal: General: Bowel sounds are normal. Palpations: Abdomen is soft. Musculoskeletal: General: Normal range of motion. Cervical back: Normal range of motion. Right lower leg: No edema. Left lower leg: No edema. Skin: General: Skin is warm and dry. Neurological: General: No focal deficit present. Mental Status: He is alert. Psychiatric: Mood and Affect: Mood normal. Behavior: Behavior normal. Thought Content: Thought content normal. Judgment: Judgment normal. Allergies Patient has no known allergies. Current Medications Current Outpatient Medications: apixaban (Eliquis) 5 mg tablet, Take 1 tablet (5 mg) by mouth 2 times a day., Disp: 180 tablet, Rfl: 1 buprenorphine-naloxone (Suboxone) 8-2 mg SL tablet, 1 tablet 2 times a day., Disp: , Rfl: pembrolizumab (Keytruda) 25 mg/mL chemo injection, Infuse 8 mL (200 mg) into a venous catheter. Every 3 weeks, Disp: , Rfl: Assessment/Plan 1. Paroxysmal atrial fibrillation (Multi) Recurring on moderate dose amiodarone. I doubt will be able to maintain rhythm on even higher doses and there would be attendant risks associated with high-dose amiodarone. That in addition to the fact that he actually felt worse and rhythm leads me to believe that we should instead focus on rate control with antithrombotic therapy - Follow Up In Cardiology 2. High risk medication use Continue to stay on Eliquis. I believe that his risk for cardioembolic event is low but because he has a malignancy he is very high risk for DVT pulmonary embolism as well as other thrombotic events. Because of this continue anticoagulant therapy 3. Former smoker Congratulated on cessation Scribe Attestation By signing my name below, I, Mik Das LPN attest that this documentation has been prepared under the direction and in the presence of Fermin Wall MD. Provider Attestation - Scribe documentation All medical record entries made by the Scribe were at my direction and personally dictated by me. I have reviewed the chart and agree that the record accurately reflects my personal performance of the history, physical exam, discussion and plan. documented in this encounter [facility] Work Phone: 07-20-2023 Instructions Haleigh Bobby LPN - 07/20/2023 2:00 PM EDT Please bring all medicines, vitamins, and herbal supplements with you when you come to the office. Prescriptions will not be filled unless you are compliant with your follow up appointments or have a follow up appointment scheduled as per instruction of your physician. Refills should be requested at the time of your visit. BMI was above normal measurement. Current weight: 131 kg (289 lb) Weight change since last visit (-) denotes wt loss -14 lbs Weight loss needed to achieve BMI 25: 99.9 Lbs Weight loss needed to achieve BMI 30: 62.1 Lbs Provided instructions on dietary changes Provided instructions on exercise. documented in this encounter [facility] Work Phone: 05-31-2023 Note IR BIOPSY LYMPH NODE Pre-procedure diagnosis: See history below Post-procedure diagnosis: Same as above Assistants/resident: See the technologist's notes above Consent/pre-procedure evaluation: See below. Garrett protocol timeout verification performed. Estimated blood loss: Less than 10 mL Procedure/complications: See below Radiation dosage measurements: See below and see technologist's notes above Conscious sedation: If conscious sedation was administered, preprocedure evaluation for conscious sedation was performed and documented. History: needs biopsy of left supraclavicular lymph node adjacent to subclavian artery and brachial plexus. Lung cancer Procedure, after explanation of the procedure, indications, risks, benefits, and alternatives to biopsy under intravenous conscious sedation to the patient, the patient gave consent. The risks that were stressed include bleeding, infection, allergic reaction, pain, damage to adjacent organs, damage to artery with bleeding, damage to nerves with neurologic compromise of left upper extremity. The patient did not receive intravenous conscious sedation. Ultrasound images were obtained for localization purposes. If ultrasound was utilized, ultrasound images were obtained for biopsy guidance, to determine the location of the lesion, for image documentation, and to assess the lesion before biopsy. Ultrasound images were obtained. Ultrasound images saved on PACS demonstrates uniform hypoechoic area with somewhat ill-defined margins adjacent to the anterior scalene muscle, subclavian artery, and adjacent to the brachial plexus. The area was sterilely prepped and draped using maximal sterile barrier technique with cap, mask, gown, gloves, sterile barrier field, and chlorhexidine. 1% xylocaine was administered for local anesthesia. After placement of a 19-gauge guiding needle into the periphery of the hypoechoic lesion, its position was verified with ultrasound image. Several cores were obtained with a 20-gauge system with limited needle excursion. There was no immediate complication from the procedure. Impression: Ultrasound-guided biopsy of left supraclavicular lesion without immediate complication. Finalized by Alvin Lomeli MD on 05/31/2023 3:03 PM [facility] 05-17-2023 History of Present illness Narrative Subjective Arvin Julien is a 43 y.o. male Chief Complaint Follow-up; Pre-op Clearance HPI Patient returns for follow-up of problems as noted. It has been a while since he has been seen. Unfortunately he poorly tolerated sotalol therapy in our efforts to restore and maintain rhythm. Thereafter treated with rate control with beta-blockers was also poorly tolerated. He insist, though, that he is feeling poorly because of atrial fibrillation. He is probably been out of rhythm at least a year. I advised him that probably he would not feel better with any rate control strategy. Because of this it appears to me, and to him, that restoring sinus rhythm may have merit. We discussed the fact has been out of rhythm for a while. I also explained multiple antiarrhythmic strategies and options. I believe all other medical therapies are inferior to amiodarone and the reason rationale for this was explained. Also discussed the amiodarone risks and potential side effects. He is regardless interested in the episcopal of maintenance of sinus rhythm because of this we will initiate Eliquis in combination with amiodarone. Both of these will be delayed, though, until after an lymph node surgery that he is planning to have on May 25. I suggested that he start these new cardiac medications on around June 05 I will plan and/or schedule cardioversion on or around July 05. Advised the patient, lastly, that if in fact the episcopal of maintenance of sinus rhythm has no improvement in his sense of wellbeing functional status breathing or other parameters that we would probably not advocate lifelong and/or chronic amiodarone therapy. The reason and the rationale for this was explained and he concurs. Review of Systems Cardiovascular: Positive for dyspnea on exertion, irregular heartbeat and palpitations. All other systems reviewed and are negative. Vitals: 05/17/23 1020 BP: (!) 138/92 BP Location: Right arm Patient Position: Sitting Pulse: (!) 127 Weight: 137 kg (303 lb) Height: 1.854 m (6' 1 ) EKG done in office today Objective Physical Exam Constitutional: Appearance: Normal appearance. HENT: Nose: Nose normal. Neck: Vascular: No carotid bruit. Cardiovascular: Rate and Rhythm: Tachycardia present. Rhythm irregular. Pulses: Normal pulses. Heart sounds: Normal heart sounds. Pulmonary: Effort: Pulmonary effort is normal. Abdominal: General: Bowel sounds are normal. Palpations: Abdomen is soft. Musculoskeletal: General: Normal range of motion. Cervical back: Normal range of motion. Right lower leg: No edema. Left lower leg: No edema. Skin: General: Skin is warm and dry. Neurological: General: No focal deficit present. Mental Status: He is alert. Psychiatric: Mood and Affect: Mood normal. Behavior: Behavior normal. Thought Content: Thought content normal. Judgment: Judgment normal. Allergies Patient has no known allergies. Current Medications Current Outpatient Medications: buprenorphine-naloxone (Suboxone) 8-2 mg SL tablet, 1 tablet 2 times a day., Disp: , Rfl: pembrolizumab (Keytruda) 25 mg/mL chemo injection, Infuse 8 mL (200 mg) into a venous catheter. Every 3 weeks, Disp: , Rfl: amiodarone (Pacerone) 200 mg tablet, Take 1 tablet (200 mg) by mouth 2 times a day., Disp: 180 tablet, Rfl: 1 apixaban (Eliquis) 5 mg tablet, Take 1 tablet (5 mg) by mouth 2 times a day., Disp: 180 tablet, Rfl: 1 metoprolol succinate XL (Toprol-XL) 200 mg 24 hr tablet, Take 1 tablet (200 mg) by mouth once daily. Do not crush or chew. (Patient not taking: Reported on 05/17/2023), Disp: 90 tablet, Rfl: 3 Assessment/Plan 1. Preop cardiovascular exam ECG 12 Lead 2. Diastolic congestive heart failure, unspecified HF chronicity (CMS/HCC) Follow Up In Cardiology 3. Primary hypertension Follow Up In Cardiology 4. Paroxysmal atrial fibrillation (CMS/HCC) Follow Up In Cardiology Follow Up In Cardiology apixaban (Eliquis) 5 mg tablet amiodarone (Pacerone) 200 mg tablet Cardioversion External 5. BMI 39.0-39.9,adult 6. High risk medication use Cardioversion External 7. Former smoker Scribe Attestation By signing my name below, I, Migdalia Maya LPN , Scribe attest that this documentation has been prepared under the direction and in the presence of Fermin Wall MD. Provider Attestation - Scribe documentation All medical record entries made by the Scribe were at my direction and personally dictated by me. I have reviewed the chart and agree that the record accurately reflects my personal performance of the history, physical exam, discussion and plan. documented in this encounter [facility] Work Phone: 05-17-2023 Instructions Migdalia Garces LPN - 05/17/2023 10:20 AM EDT Please bring all medicines, vitamins, and herbal supplements with you when you come to the office. Prescriptions will not be filled unless you are compliant with your follow up appointments or have a follow up appointment scheduled as per instruction of your physician. Refills should be requested at the time of your visit. Arvin Julien is clear for surgery from a cardiac standpoint for biopsy Mid May (10 days after biopsy)patient will start eliquis 5mg twice daily and Amiodarone 200mg twice daily documented in this encounter [facility] Work Phone: 12-01-2022 History of Present illness Narrative Subjective Arvin Julien is a 42 y.o. male Chief Complaint Follow-up HPI Patient returns in follow-up of problems as noted. In the interim he underwent treatment for his lung cancer. He is under the impression he is doing well. He is now on immunotherapy but apparently there is no further recommendations for surgery, chemotherapy, or radiation. He states he is tired. He acknowledges this could be related to chemotherapy. He also acknowledges chemo brain . He does acknowledge, though, some shortness of breath. Because of this we suggested an echocardiogram. An echo was performed and [place] in June of this year during and/or preceding his chemotherapy and there appears to be no subsequent follow-up. Because of this we will reassess his ejection fraction having now completed his treatment for cancer with chemotherapy. I cannot elicit from him manifestation of orthopnea or PND but he does have dyspnea with exertion. Likewise he has no awareness of arrhythmia symptomatology. It appears he is in atrial fibrillation, and rate control could be improved upon because of this we will double his metoprolol succinate dosage today. The merits of diet lifestyle modification and exercise were also advocated. Review of Systems Respiratory: Positive for shortness of breath. All other systems reviewed and are negative. Objective Physical Exam Constitutional: Appearance: Normal appearance. He is normal weight. HENT: Nose: Nose normal. Neck: Vascular: No carotid bruit. Cardiovascular: Rate and Rhythm: Normal rate. Pulses: Normal pulses. Heart sounds: Normal heart sounds. Pulmonary: Effort: Pulmonary effort is normal. Abdominal: General: Bowel sounds are normal. Palpations: Abdomen is soft. Genitourinary: Rectum: Normal. Musculoskeletal: General: Normal range of motion. Cervical back: Normal range of motion. Right lower leg: No edema. Left lower leg: No edema. Skin: General: Skin is warm and dry. Neurological: General: No focal deficit present. Mental Status: He is alert. Psychiatric: Mood and Affect: Mood normal. Behavior: Behavior normal. Thought Content: Thought content normal. Judgment: Judgment normal. Visit Vitals BP 140/70 (BP Location: Right arm, Patient Position: Sitting) Pulse 80 Ht 1.829 m (6') Wt 135 kg (298 lb) BMI 40.42 kg/m Smoking Status Former BSA 2.62 m Assessment/Plan 1. Diastolic congestive heart failure, unspecified HF chronicity (CMS/HCC) 2. Primary hypertension 3. Paroxysmal atrial fibrillation ([facility]/HCC) documented in this encounter [facility] Work Phone: 12-01-2022 Instructions Radha Tinsley LPN - 12/01/2022 1:30 PM EDT Please bring all medicines, vitamins, and herbal supplements with you when you come to the office. Prescriptions will not be filled unless you are compliant with your follow up appointments or have a follow up appointment scheduled as per instruction of your physician. Refills should be requested at the time of your visit. Echo ordered documented in this encounter [facility] Work Phone: 07-16-2022 Note Patient: Arvin Julien Procedure Summary Date: 07/16/22 Room / Location: [facility] Main Operating Room Anesthesia Start: 1406 Anesthesia Stop: 1516 Procedure: BRONCHOSCOPY Diagnosis: Mediastinal adenopathy Lung mass Scheduled Providers: Galdino Olmos MD; Tiny May MD; CORAL Diaz Responsible Provider: Tiny May MD Anesthesia Type: general ASA Status: 3 Anesthesia Type: general Vitals Value Taken Time BP 121/77 07/16/22 1510 Temp 36 ???C (96.8 ???F) 07/16/22 1510 Pulse 107 07/16/22 1524 Resp 10 07/16/22 1524 SpO2 94 % 07/16/22 1524 Anesthesia Post Evaluation Patient location during evaluation: PACU Patient participation: complete - patient participated Level of consciousness: awake Pain score: 0 Pain management: adequate Cardiovascular status: acceptable Respiratory status: acceptable Hydration status: acceptable No notable events documented. [facility] 07-16-2022 Note Airway Date/Time: 07/16/2022 2:09 PM Urgency: elective Airway not difficult General Information and Staff Patient location during procedure: OR Anesthesiologist: Tiny May MD Resident/RN INTERNATIONAL/CAA: CORAL Diaz Performed: resident/RN INTERNATIONAL/OCRAL Indications and Patient Condition Indications for airway management: anesthesia Spontaneous Ventilation: absent Sedation level: deep Preoxygenated: yes Mask difficulty assessment: 2 - vent by mask + OA or adjuvant +/- NMBA Final Airway Details Final airway type: endotracheal airway Successful airway: ETT Cuffed: yes Successful intubation technique: video laryngoscopy Facilitating devices/methods: intubating stylet Endotracheal tube insertion site: oral Blade: Rivero Blade size: #3 ETT size (mm): 8.5 Cormack-Lehane Classification: grade I - full view of glottis Placement verified by: chest auscultation and capnometry Measured from: lips ETT to lips (cm): 24 Number of attempts at approach: 1 Number of other approaches attempted: [address] [facility] 07-16-2022 Note Patient: Arvin Julien Procedure Information Date/Time: 07/16/22 1430 Scheduled providers: Galdino Olmos MD; Tiny May MD; CORAL Diaz Procedure: BRONCHOSCOPY Location: [facility] Main Operating Room Relevant Problems No relevant active problems Clinical information reviewed: Tobacco Allergies Meds Med Hx Surg Hx Fam Hx Physical Exam Airway Mallampati: II TM distance: >3 FB Neck ROM: full Cardiovascular Rhythm: irregular Rate: abnormal Dental Pulmonary (+) rhonchi, decreased breath sounds, wheezes Abdominal Abdomen: soft Anesthesia Plan ASA 3 general intravenous induction Anesthetic plan and risks discussed with patient. Plan discussed with attending. Additional Equipment Requests [facility] 07-12-2022 Note No outpatient medica tions have been marked as taking for the 07/12/22 encounter (Prep for Procedure) with Galdino Olmos MD. Additional Instructions: Nothing to Eat or Drink, including Candy, Gum and Mints after Midnight the night before surgery. Take suboxone the day of surgery. May take Sotalol with sip of water unless otherwise instructed by Dr. Olmos. Hold supplements now. Hold Eliquis 2 days prior to surgery. You must have a yard truck driver to take you home and someone to stay for 24 hours after surgery. Bring insurance card and ID. No jewelTaktio. [facility] 07-11-2022 Note Order placed for EBU S and rEBUS. Patient on Eliquis, please stop it for 2 days prior to the procedure Galdino Olmos MD Interventional Pulmonary Medicine Pulmonary and Critical Care Medicine [facility] 07-09-2022 Note . [facility] 06-11-2022 Note HNO ID: [id number] Author: Katie Baez APRN.MINERAL ECONOMIST Service: ? Author Type: Nurse Practitioner Type: Progress Notes Filed: 06/11/2022 11:06 AM Note Text: SKIN EXAM NEW CC: This patient is a 42 year old male. Patient presents with: LESION, SKIN Full Body Skin Check HPI: Location: mid back Appearance (size, shape, color): red flat spot Duration: unsure, girlfriend marked it prior to visit Symptoms (growing, itching, bleeding, tender): none Treatments: none Location: left calf Appearance (size, shape, color): raised spot Duration: unsure, girlfriend marked it prior to visit Symptoms (growing, itching, bleeding, tender): itches occasionally Treatments: none Location: left forearm Appearance (size, shape, color): weird spot Duration: several months Symptoms (growing, itching, bleeding, tender): raised and scaly Treatments: none Location: right thigh Appearance (size, shape, color): red hard bump Duration: years Symptoms (growing, itching, bleeding, tender): was smaller, then was treated with liquid nitrogen and got larger, denies pain or itching Treatments: liquid nitrogen Was treatment effective: no, increased in size -Personal history of skin cancer: No -History of blistering sunburns:No -Family history of skin cancer: Yes, BCC mother, SCC Grandmother SOC: Social History Tobacco Use Smoking status: Every Day Packs/day: 1.00 Years: 29.00 Pack years: 29.00 Types: Cigarettes Start date: 02/21/1990 Smokeless tobacco: Never Vaping Use Vaping Use: Never used Substance Use Topics Alcohol use: No Drug use: No MEDS: Current outpatient prescriptions: Current Outpatient Medications on File Prior to Visit Medication Sig metFORMIN (GLUCOPHAGE) 500 mg tablet Take 500 mg by mouth twice daily. lisinopril (ZESTRIL) 10 mg tablet Take 10 mg by mouth once daily. No current facility-administered medications on file prior to visit. ALLERGY: ALLERGIES Allergen Reactions Celebrex [Celecoxib] GI Upset Skelaxin [Metaxalon* GI Upset PAST MEDICAL HISTORY: No chronic skin disease or skin cancer FAMILY HISTORY: No chronic skin disease or skin cancer REVIEW OF SYSTEMS: Patient feels well and denies any recent fevers, chills, or nightsweats. PHYSICAL EXAM: The patient is a pleasant male in no distress. Patient is healthy, well developed, well nourished and in otherwise good health. he is alert and oriented x 3. A skin exam was done of the Scalp, face, ears, neck, chest, back, abdomen, bilateral upper extremities, bilateral lower extremities, nails and hair. Russell Skin Type: II IMPRESSION: Left forearm and left calf brown stuck on plaques Densely scattered light atkins macules noted on all sun exposed areas Regular and symmetric hyperpigmented macules and papules throughout Small scott red papules throughout Right anterior thigh light brown firm square nodule + dimple test Mid back and upper back with TLG's A/P: (L82.1) Seborrheic Keratoses - extremely common and benign in nature - appear mostly on the chest and back, but can occur anywhere - there may be a few or hundreds - they have a stuck on appearance - genetic in nature - may become inflamed or irritated causing pruritus or pain Management: - generally removal is considered cosmetic in nature as they have no malignant potential Treatment: - discussed liquid nitrogen - declines today (L81.4) Solar lentigines (D22.9) Multiple benign nevi (D18.01) Angiomas of skin -Discussed etiology and educated. -Reassured benign nature. -Continue to monitor (Z80.8) Family history of skin cancer (D23.9) Dermatofibroma - also known as histiocytomas - common benign skin lesions - often times arises at site of trauma (bug bite etc) - may be tender or pruritic - very common on women's legs - common to have multiple Treatment: - no treatment is needed unless symptomatic (I78.1) Telangiectasia of skin - Telangiectasia's are small widened blood vessels Common causes: - rosacea - aging - genetics - - sun exposure - trauma - overuse of topical steroid cream Treatment: - treatment is not necessary, most TLG's are not symptomatic I counseled the patient after the exam about the ABCDEs of nevus evaluation, pre-cancer,skin cancer surveillance with monthly self skin exams. Sunscreen / sunblock protection reviewed. Follow up in 1 year and PRN The patient is seen and examined by Katie Baez CNP and the following reflects his/her service. Scribed by Evelia Victor RN /Lissette Carreon MA I agree with the Chief Complaint, ROS, and Past Histories independently gathered by the clinical customer support engineer and the remaining scribed note accurately describes my personal service to the patient. Katie Baez APRN.ELVIRA June 11, 2022 10:51 AM Medical Decision Making: Problems: Moderate: 2+ stable chronic illnesses Risk: Low: Low risk from (more content not included)... [facility] 06-11-2022 History of Present illness Narrative SKIN EXAM NEW CC: This patient is a 42 year old male. Patient presents with: LESION, SKIN Full Body Skin Check HPI: Location: mid back Appearance (size, shape, color): red flat spot Duration: unsure, girlfriend marked it prior to visit Symptoms (growing, itching, bleeding, tender): none Treatments: none Location: left calf Appearance (size, shape, color): raised spot Duration: unsure, girlfriend marked it prior to visit Symptoms (growing, itching, bleeding, tender): itches occasionally Treatments: none Location: left forearm Appearance (size, shape, color): weird spot Duration: several months Symptoms (growing, itching, bleeding, tender): raised and scaly Treatments: none Location: right thigh Appearance (size, shape, color): red hard bump Duration: years Symptoms (growing, itching, bleeding, tender): was smaller, then was treated with liquid nitrogen and got larger, denies pain or itching Treatments: liquid nitrogen Was treatment effective: no, increased in size -Personal history of skin cancer: No -History of blistering sunburns:No -Family history of skin cancer: Yes, BCC mother, SCC Grandmother SOC: Social History Tobacco Use Smoking status: Every Day Packs/day: 1.00 Years: 29.00 Pack years: 29.00 Types: Cigarettes Start date: 02/21/1990 Smokeless tobacco: Never Vaping Use Vaping Use: Never used Substance Use Topics Alcohol use: No Drug use: No MEDS: Current outpatient prescriptions: Current Outpatient Medications on File Prior to Visit Medication Sig metFORMIN (GLUCOPHAGE) 500 mg tablet Take 500 mg by mouth twice daily. lisinopril (ZESTRIL) 10 mg tablet Take 10 mg by mouth once daily. No current facility-administered medications on file prior to visit. ALLERGY: ALLERGIES Allergen Reactions Celebrex [Celecoxib] GI Upset Skelaxin [Metaxalon* GI Upset PAST MEDICAL HISTORY: No chronic skin disease or skin cancer FAMILY HISTORY: No chronic skin disease or skin cancer REVIEW OF SYSTEMS: Patient feels well and denies any recent fevers, chills, or nightsweats. PHYSICAL EXAM: The patient is a pleasant male in no distress. Patient is healthy, well developed, well nourished and in otherwise good health. he is alert and oriented x 3. A skin exam was done of the Scalp, face, ears, neck, chest, back, abdomen, bilateral upper extremities, bilateral lower extremities, nails and hair. Russell Skin Type: II IMPRESSION: Left forearm and left calf brown stuck on plaques Densely scattered light atkins macules noted on all sun exposed areas Regular and symmetric hyperpigmented macules and papules throughout Small scott red papules throughout Right anterior thigh light brown firm square nodule + dimple test Mid back and upper back with TLG's A/P: (L82.1) Seborrheic Keratoses - extremely common and benign in nature - appear mostly on the chest and back, but can occur anywhere - there may be a few or hundreds - they have a stuck on appearance - genetic in nature - may become inflamed or irritated causing pruritus or pain Management: - generally removal is considered cosmetic in nature as they have no malignant potential Treatment: - discussed liquid nitrogen - declines today (L81.4) Solar lentigines (D22.9) Multiple benign nevi (D18.01) Angiomas of skin -Discussed etiology and educated. -Reassured benign nature. -Continue to monitor (Z80.8) Family history of skin cancer (D23.9) Dermatofibroma - also known as histiocytomas - common benign skin lesions - often times arises at site of trauma (bug bite etc) - may be tender or pruritic - very common on women's legs - common to have multiple Treatment: - no treatment is needed unless symptomatic (I78.1) Telangiectasia of skin - Telangiectasia's are small widened blood vessels Common causes: - rosacea - aging - genetics - - sun exposure - trauma - overuse of topical steroid cream Treatment: - treatment is not necessary, most TLG's are not symptomatic I counseled the patient after the exam about the ABCDEs of nevus evaluation, pre-cancer,skin cancer surveillance with monthly self skin exams. Sunscreen / sunblock protection reviewed. Follow up in 1 year and PRN The patient is seen and examined by Katie Baez CNP and the following reflects his/her service. Scribed by Evelia Victor RN /Lissette Carreon MA I agree with the Chief Complaint, ROS, and Past Histories independently gathered by the clinical customer support engineer and the remaining scribed note accurately describes my personal service to the patient. Katie Baez APRN.ELVIRA June 11, 2022 10:51 AM Medical Decision Making: Problems: Moderate: 2+ stable chronic illnesses Risk: Low: Low risk from testing/treatment Medical Decision Making Level: 3 - Low documented in this encounter [facility] 10-14-2021 Evaluation note Encounter Date Diagnosis Assessment Notes Sep, Closed nondisplaced fracture of distal phalanx of left thumb, initial encounter (ICD-10 - S62.525A) This appears to be a small nondisplaced fracture of the distal phalanx of the left thumb. This will be treated in a thumb spica brace. Instructed to wear the brace during the day for handwashing or sitting at home. Instructed to wear at night for sleeping. Discussed this should heal in 4-6 weeks. 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 Patient instructed to take naproxen and tylenol for pain. Sep, Subungual hematoma of left thumb, initial encounter (ICD-10 - S60.112A) Sep, Left hand pain (ICD-10 - M79.642) [facility] Other 08-22-2022 NotePROCEDURE: XR HAND LT MIN 3V HISTORY: Pain of left hand ; left thumb pain following injury COMPARISON: None. FINDINGS: BONES:Thin oblique lucency through the diaphysis of the first distal phalanx without cortical step off. Unremarkable appearance of rest of the hand. SOFT TISSUES:No visible soft tissue swelling. EFFUSION:None visible. OTHER: Negative. IMPRESSION: 1. Suspect nondisplaced fracture of the first distal phalanx. This could also represent a prominent vascular channel. Follow-up is recommended. Electronically authenticated by: JOSSELYN MOMIN Date: 2021-10-12 13:55[facility]03-29-2022 Evaluation note* Encounter Date Diagnosis Assessment Notes Treatment Notes Treatment Clinical Notes Apr, Obstructive sleep apnea (ICD-10 - G47.33) Fortunately the patient is using and benefiting from treatment. He would benefit from increased utilization time. He does have some difficulties with claustrophobia, but in particular has problems with the mask feeling very sweaty. The humidity in the tubing can also bother him. These issues and resulting treatment options were discussed in detail. We discussed ways to improve humidity settings. I also discussed the availability of REM ZZZ mask liners to reduce skin contact sweating. Different masks such as foam masks may also help for folks who do not tolerate the silicone type. I encouraged him to use the machine every night, all night, and he will call if problems Apr, Claustrophobia (ICD-10 - F40.240) He does have some claustrophobia and this could account for some of his awakening and intolerance. Wake accommodation trials were explained in detail and encouraged Apr, Hypoxia, sleep related (ICD-10 - G47.34) This emphasizes the importance of using the machine all the time. He did have significant obstructive sleep apnea with significant hypoxia when untreated Apr, BMI 40.0-44.9, adult (ICD-10 - Z68.41) Weight control strategies emphasizing portion control, good food choices, low calorie snacking, avoiding calorie-containing liquids, and calorie tracking were reviewed in detail. Emphasis was placed budgeting calories so there can be room for appropriate quantities of favorite foods, and on making gradual progress rather than seeking short term loss. Apr, Other Call if any questions or problems. Patient is advised to work on healthy diet choices and appropriate servings, weight control, regular exercise as directed, and reduce fat intake. Use machine regularly, and keep up with mask changes as needed. Call if problems with mask toleration, increased sleepiness, or poor response to treatment. . [facility] Other Evaluation noteNo assessment information available [facility] Work Phone: Evaluation note* Diagnosis Seborrheic keratosis- Primary Other seborrheic keratosis Lentigines Other dyschromia Multiple benign nevi Benign neoplasm of skin, site unspecified Scott angioma Nevus, non-neoplastic Family history of skin cancer Family history of other specified malignant neoplasm Dermatofibroma Benign neoplasm of skin, site unspecified Telangiectasia of skin Other and unspecified capillary diseases [facility] Diastolic congestive heart failure, unspecified HF chronicity (CMS/HCC)- Primary Primary hypertension Unspecified essential hypertension Paroxysmal atrial fibrillation (CMS/HCC) Atrial fibrillation Malignant neoplasm of hilus of lung, unspecified laterality (CMS/HCC) documented in this encounter [facility] Work Phone: Evaluation note* Diagnosis Diastolic congestive heart failure, unspecified HF chronicity (CMS/HCC) Primary hypertension Unspecified essential hypertension Paroxysmal atrial fibrillation (CMS/HCC) Atrial fibrillation documented in this encounter [facility] Work Phone: Evaluation note* Diagnosis Diastolic congestive heart failure, unspecified HF chronicity (CMS/HCC) Primary hypertension Unspecified essential hypertension Paroxysmal atrial fibrillation (CMS/HCC) Atrial fibrillation documented in this encounter [facility] Work Phone: Evaluation note* Diagnosis Preop cardiovascular exam Pre-operative cardiovascular examination Diastolic congestive heart failure, unspecified HF chronicity (CMS/HCC) Primary hypertension Unspecified essential hypertension Paroxysmal atrial fibrillation (CMS/HCC) Atrial fibrillation BMI 39.0-39.9,adult High risk medication use Former smoker Personal history of tobacco use, presenting hazards to health documented in this encounter [facility] Work Phone: Evaluation note* Diagnosis Paroxysmal atrial fibrillation (Multi) Atrial fibrillation High risk medication use Former smoker Personal history of tobacco use, presenting hazards to health documented in this encounter [facility] Work Phone: History general Narrative - Reported* Type Description Date Medical History hypertensive heart disease Medical History Congestive Heart Failure Medical History DAYANNA Surgical History tonsillectomy and adenoidectomy Surgical History leg from compound fx as child Surgical History cyst on the back of head as a k id. Surgical History carpal tunnel release bilateral Hospitalization History CHF 2020 [facility] Other History of Present illness NarrativeReturns in follow- up of problems as noted. In the interim he is done well. Hypertension is well controlled. His test results from the [facility] were reviewed. They basically were normal. There might actually be mild diastolic dysfunction but otherwise no evidence of coronary disease, novalve disease, no systolic dysfunction. Because of all the above we believe his medical therapy to be adequate and appropriate. He advises me that he is being treated now for sleep apnea with nocturnal CPAP and he is improving. He has more energy during the day less shortness of breath and overall his functional status is improved and because of all the above we suggest continued therapy as is. We discussed the merits of diet lifestyle modification exercise weight loss and smoking cessation.-[facility] [employer] DO Work Phone: History of Present illness Narrative* Patient returns in follow-up of problems as noted. He is doing well. His heart failure symptoms have resolved and he denies dyspnea orthopnea PND and he also notes that his leg edema had resolved with current therapy. * He curiously complaints of itchy skin. I advised him it could be related to the J CARLOS inhibitor therapy because of this we will stop it and substitute losartan in its place. He is also experiencing some muscle cramps and because of this and the fact he is on diuretics we will check a electrolyte panel, magnesium, and also a B natruretic peptide to evaluate the heart failure. * In regards to his blood pressure is now satisfactory. Lipids are satisfactory. He is a nondiabetic.He continues to smoke and the merits of smoking cessation as well as diet and weight loss were advocated. [facility] [employer] DO Work Phone: History of Present illness Narrative* Patient returns in follow-up of problems as noted. He has paroxysmal atrial fibrillation did not spontaneously convert with the implementation of sotalol but he did achieve adequate rate control. We cleared him for his lung biopsy and this was accomplished without incident. Apparently has stage IV metastatic lung cancer. He is clearly upset. He has already undergone port placement in the left subclavian for chemotherapy and immunotherapy. This will be started soon. * Advised him that I recommend simply achieving rate control of his atrial fibrillation with metoprolol succinate and that we abandon the concept of restoring and maintaining sinus rhythm. He did not convert spontaneously and this portends difficulty in maintaining rhythm. Additionally the complexityand severity of his condition and treatment will make ongoing antiarrhythmic therapy problematic. There could even be some drug-drug interactions and QT prolongation depending on what kind of therapyis given. Because all the above we recommend metoprolol instead of sotalol. In regards to antithrombotic strategy I recommend aspirin once or twice a week and nothing more because his stroke risk is low. * Lastly we discussed his blood pressure. In the past it was high but now it is actually low. I suggest that he uses furosemide only as needed for leg swelling and that he enhance his salt intake to augment blood pressure. I suggested that we would be happy to see him or help adjust or manage his rate control strategy and that he should feel free to call if there are problems with heart rate control and/or other issues and we will attempt to promptly address them over the phone. [facility] [address] DO Work Phone: InstructionsNot on filedocumented in this encounter [facility] (narrative)* Consultation (Routine) - Authorized Specialty Diagnoses / Procedures Referred By Patsy bajwa Referred To Contact Cardiology Diagnoses Diastolic congestive heart failure, unspecified HF chronicity (CMS/HCC) Primary hypertension Paroxysmal atrial fibrillation (CMS/HCC) Procedures Follow Up In Cardiology Fermin Wall MD [address] [place] [address], [address] [address] Referral ID Status Reason Start Date Expiration Date V isits Requested Visits Authorized [id number] Authorized 12/01/2022 05/30/2023 1 1 * CV Imaging (Routine) - Pending Review Specialty Diagnoses / Procedures Referred By Contac t Referred To Contact Cardiology Diagnoses Diastolic congestive heart failure, unspecified HF chronicity (CMS/HCC) Primary hypertension Paroxysmal atrial fibrillation (CMS/HCC) Procedures Transthoracic Echo (TTE) Complete MN ECHO TRANSTHORC R-T 2D W/WO M-MODE REC F-UP/LMTD MN DOP ECHOCARD COLOR FLOW VELOCITY MAPPING MN DOP ECHOCARD PULSE WAVE W/SPECTRAL F-UP/LMTD STD Fermin Wall MD [facility] [address], [address] [place] [address] Referral ID Status Reason Start Date Expiration Date Visits Requested Visits Authorized [id number] Pending Review Perform Procedure 3 05/30/2023 1 1 [facility] Work Phone: Chief Complaint ARVIN JULIEN is being seen for a 4 month follow-up of.ARVIN ANAYA is being seen for a 4 month follow-up of.ARVIN ANAYA is being seen for a 9 month follow-up of. ARVIN ANAYA is being seen for a 3 week follow-up of. Family History No Family History Records FoundUnknown Family Member Name Dates Details Heart problem: Mother Status:Active Family history of cardiac di sorder: Father, Brother(V17.49, Z82.49) Status:Active Unknown Family Member Name Dates Details Family history of cardiac di sorder: Father, Brother(V17.49, Z82.49) Status:Active Heart problem: Mother Status:Active Unknown Family Member Name Dates Details Family history of cardiac di sorder: Father, Brother(V17.49, Z82.49) Status:Active Heart problem: Mother Status:Active Unknown Family Member Name Dates Details Family history of cardiac di sorder: Father, Brother(V17.49, Z82.49) Status:Active Heart problem: Mother Status:Active Chief Complaint and Reason for Visit Chief Complaint S62.525A Chief Complaint S62.525A 6 mth follow up after new mask Advance Directives No Advanced Directives Records Found Advance Directive Response Recorded Date/ Time Advance Directives No July 02 12:31pm Latest Code Status on File Code Status Date Activated Date Inactivated Comments Full Code 02/08/2017 3:07 PM 02/09/2017 12:20 PM Summary Purpose Reason for Referral Specialty Diagnoses / Procedures Referred By Contac t Referred To Contact Diagnoses Paroxysmal atrial fibrillation (Multi) Procedures ECG 12 Lead Fermin Wall MD [address] [address], [address] [address] [place] [address] Referral ID Status Reason Start Date Expiration Date V isits Requested Visits Authorized [id number] Authorized 07/20/2023 07/19/2024 1 1 Specialty Diagnoses / Procedures Referred By Contac t Referred To Contact Cardiology Diagnoses Paroxysmal atrial fibrillation (Multi) Procedures Follow Up In Cardiology Fermin Wall MD [facility] [address], [address] [place] [id number] Fermin Wall MD [address] [place] [address] [facility] [address], [address] [place] [address] Referral ID Status Reason Start Date Expiration Date V isits Requested Visits Authorized [id number] Authorized 07/20/2023 07/19/2024 1 1 Specialty Diagnoses / Procedures Referred By Contac t Referred To Contact Cardiology Diagnoses Paroxysmal atrial fibrillation (CMS/HCC) High risk medication use Procedures Cardioversion External Fermin Wall MD [address] [place] [address] 2, [address] [address] Referral ID Status Reason Start Date Expiration Date V isits Requested Visits Authorized [id number] Pending Review 05/17/2023 05/16/2024 1 1 Specialty Diagnoses / Procedures Referred By Contac t Referred To Contact Diagnoses Preop cardiovascular exam Procedures ECG 12 Lead Fermin Wall MD [address] [place] [address] [facility] [address], [address] [address] Referral ID Status Reason Start Date Expiration Date V isits Requested Visits Authorized [id number] Authorized 05/17/2023 05/16/2024 1 1 Specialty Diagnoses / Procedures Referred By Contac t Referred To Contact Cardiology Diagnoses Paroxysmal atrial fibrillation (CMS/HCC) Procedures Follow Up In Cardiology Fermin Wall MD [address] [place] [address] [facility] 2, [address] [address] Fermin Wall MD [address] [place] [address] [address], [address] [address] Referral ID Status Reason Start Date Expiration Date V isits Requested Visits Authorized [id number] Authorized 05/17/2023 05/16/2024 1 1 Specialty Diagnoses / Procedures Referred By Contac t Referred To Contact Cardiology Diagnoses Diastolic congestive heart failure, unspecified HF chronicity (CMS/HCC) Primary hypertension Paroxysmal atrial fibrillation (CMS/HCC) Procedures Transthoracic Echo (TTE) Complete MN ECHO TRANSTHORC R-T 2D W/WO M-MODE REC F-UP/LMTD MN DOP ECHOCARD COLOR FLOW VELOCITY MAPPING MN DOP ECHOCARD PULSE WAVE W/SPECTRAL F-UP/LMTD STD Fermin Wall MD [address] [place] [address], [address] [address] Referral ID Status Reason Start Date Expiration Date Visits Requested Visits Authorized [id number] Authorized Perform Procedure 3 05/30/2023 1 1 Additional Source Comments REASON FOR VISIT (unrecogniz ed section and content) Reason Comments Follow-up dcc Specialty Diagnoses / Procedures Referred By Contac t Referred To Contact Cardiology Diagnoses Paroxysmal atrial fibrillation (Multi) Procedures Follow Up In Cardiology Fermin Wall MD [address] [place] [address] 2, [address] [address] Fermin Wall MD [address] [place] [address] [address], [address] [address] Referral ID Status Reason Start Date Expiration Date V isits Requested Visits Authorized [id number] Authorized 05/17/2023 05/16/2024 1 1 Reason Comments Follow-up Echo results Pre-op Clearance Lung biopsy Specialty Diagnoses / Procedures Referred By Contac t Referred To Contact Cardiology Diagnoses Diastolic congestive heart failure, unspecified HF chronicity (CMS/HCC) Primary hypertension Paroxysmal atrial fibrillation (CMS/HCC) Procedures Follow Up In Cardiology Fermin Wall MD [address] [place] [address] 2, [address] [place] [address] Referral ID Status Reason Start Date Expiration Date V isits Requested Visits Authorized [id number] Authorized 12/01/2022 05/30/2023 1 1 Specialty Diagnoses / Procedures Referred By Contac t Referred To Contact Cardiology Diagnoses Diastolic congestive heart failure, unspecified HF chronicity (CMS/HCC) Primary hypertension Paroxysmal atrial fibrillation (CMS/HCC) Procedures Transthoracic Echo (TTE) Complete MN ECHO TRANSTHORC R-T 2D W/WO M-MODE REC F-UP/LMTD MN DOP ECHOCARD COLOR FLOW VELOCITY MAPPING MN DOP ECHOCARD PULSE WAVE W/SPECTRAL F-UP/LMTD STD Fermin Wall MD [facility] 2, [address] [address] Referral ID Status Reason Start Date Expiration Date Visits Requested Visits Authorized [id number] Authorized Perform Procedure 05/30/2023 1 1 Reason Comments Follow-up 9m Reason Comments LESION, SKIN Full Body Skin Check Left Thumb Injury Care Teams (unrecognized sec tion and content) Team Status: Inactive Member Role Status Dates PHYSICIAN NO FAMILY Primary Care Provider Active Danuta Centeno MD Attending Provider Active Team Status: Active Member Role Status Dates PHYSICIAN NO FAMILY Primary Care Provider Active Team Status: Inactive Member Role Status Dates PHYSICIAN NO FAMILY Primary Care Provider Active Johnnie Bruce MD Attending Provider Active [employer] Officer Relationship Specialty Start Date End Date Carlos Sanders [facility] [address] [place] [address] PCP - General Family Medicine 09/14/19 National Service Officer Relationship Specialty Start Date End Date Generic Provider, No Assigned MD [address] [place] [address] PCP - General Family Medicine 01/01/23 National Service Officer Relationship Specialty Start Date End Date Generic Provider, No Assigned MD [address] [place] [address] PCP - General Family Medicine 01/01/23 National Service Officer Relationship Specialty Start Date End Date Generic Provider, No Assigned MD Carlton PCP - General Family Medicine 01/01/23 National Service Officer Relationship Specialty Start Date End Date No Pcp, [place] [address] PCP - General Family Medicine 11/19/19 National Service Officer Relationship Specialty Start Date End Date Generic Provider, No Assigned PcpMD PCP - General Family Medicine 01/01/23 Goals (unrecognized section and content) Goals may be documented in a n alternate section (unrecognized sect ion and content) No Status Records FoundNo Status Records FoundNo Status Records FoundNo Status Records FoundNo Status Records FoundNo Status Records FoundNo Status Records FoundNo Status Records FoundNo Status Records FoundNo Status Records FoundNo Status Records Found INFORMATION SOURCE (unrecogn ized section and content) DATE CREATED AUTHOR 03/04/2022 [facility] DATE CREATED AUTHOR AUTHOR'S ORGANIZ ATION 03/04/2022 [employer] DATE CREATED AUTHOR AUTHOR'S ORGANIZ ATION 06/02/2022 [facility] DATE CREATED AUTHOR AUTHOR'S ORGANIZ ATION 06/12/2022 [facility] DATE CREATED AUTHOR AUTHOR'S ORGANIZ ATION 07/31/2022 [facility] DATE CREATED AUTHOR AUTHOR'S ORGANIZ ATION 07/21/2023 [facility] DATE CREATED AUTHOR AUTHOR'S ORGANIZ ATION 09/09/2023 [facility] DATE CREATED AUTHOR AUTHOR'S ORGANIZ ATION 09/24/2023 [facility] DATE CREATED AUTHOR AUTHOR'S ORGANIZ ATION 10/29/2023 [facility] DATE CREATED AUTHOR AUTHOR'S ORGANIZ ATION 11/01/2023 [facility] DATE CREATED AUTHOR AUTHOR'S ORGANIZ ATION 11/03/2023 [facility] Source Comments (unrecognize d section and content) In the event this informatio n is protected by the Federal Confidentiality of Alcohol and Drug Abuse Patient Records regulations: The Federal rules restrict any use of the information to criminally investigate or prosecute any alcohol or drug abuse patient.[facility] FOR RECORDS PERTAINING TO PATIENTS WHO ARE OR HAVE BEEN ENROLLED IN A CHEMICAL DEPENDENCY/SUBSTANCEABUSE PROGRAM, SOME INFORMATION MAY BE OMITTED. This clinical summary was aggregated from multiple sources. Caution should be exercised in using it in the provision of clinical care. This summary normalizes information from multiple sources, and as a consequence, information in this document may materially change the coding, format and clinical context of patient data. In addition, data may be omitted in some cases. CLINICAL DECISIONS SHOULD BE BASED ON THE PRIMARY CLINICAL RECORDS. [facility] [employer] [facility]. provides no warranty or guarantee of the accuracy or completeness of information in this document.
[2023-11-03 06:09] LABS: Alanine Aminotransferase 108 U/L (16-63); Albumin Globulin Ratio 0.8; Albumin Level 2.7 g/dL (3.4-5.0); Alkaline Phosphatase 31 U/L (46-116); Anion Gap 14.5; Aspartate Amino Transferase 123 U/L (15-37); BUN Creatinine Ratio 11.8; Bilirubin Total 1.2 mg/dL (0.2-1.0); Calcium 8.5 mg/dL (8.5-10.1); Carbon Dioxide 25.7 mmol/L (21.0-32.0); Chloride 99 mmol/L (98-107); Estimated GFR (African America >60 (>=60); Estimated GFR (Non-African Ame >60 (>=60); Globulin 3.3 g/dL; Glucose 158 mg/dL (74-106); Potassium 4.2 mmol/L (3.5-5.1); Sodium 135 mmol/L (136-145)
[2023-11-03] MEDS: CARVEDILOL 6.25 MG TABLET PO (08:20)
[2023-11-03] MEDS: APIXABAN 5 MG TABLET PO ×2 (08:21→21:11)
[2023-11-03] MEDS: Buprenorphine-Naloxone 8-2 mg film 1 EACH SL ×2 (08:21→21:11)
--- NOTE | 2023-11-03 09:12 | CT_ITS ---
[address] [address] Patient Name: EVAN JULIEN MRN: [id number] date: 1980 Sex: M Assigned Patient Location: ICU Current Patient Location: ICU Accession/Order Number: [id number] Exam Date: 11/03/2023 09:23 Report Date: 11/03/2023 10:32 At the request of: SHAIKH CHAD Procedure: CT chest w con EXAMINATION: CT chest w con HISTORY: Lung Cancer/Pneumonia COMPARISON: 05/29/2022, 11/02/2023 TECHNIQUE: Multi-planar CT images were created with IV contrast. Axial, Coronal, and Sagittal images. Dose reduction techniques were achieved by using automated exposure control and/or adjustment of mA and/or kV according to patient size and/or use of iterative reconstruction technique. FINDINGS: LUNGS: Diffuse peribronchial thickening without bronchiectasis. Scattered patchy groundglass and consolidative densities noted throughout both lungs. The most masslike consolidation is noted in the posterior right upper lobe measuring 6.1 x 4.5 cm, axial image 35 PLEURA: 7.5 cm right and 1.3 cm left pleural effusions VASCULATURE: Normal postcontrast opacification of the central pulmonary arterial tree with no filling defect to suggest a pulmonary embolus NANCY: No mass or adenopathy. MEDIASTINUM: No mass or adenopathy. CARDIAC: No enlargement or pericardial effusion Coronary arteries: Absent calcifications AORTA: No aortic aneurysm or dissection CHEST WALL: No mass or axillary adenopathy. BONES: No bone lesion or fracture. LIMITED ABDOMEN: No suspicious findings. Limited images of the upper abdomen. OTHER: Negative. CT/CT chest w con IMPRESSION: Bilateral multifocal parenchymal infiltrates, multifocal pneumonia is favored however recurrent malignancy is not excluded No central pulmonary thromboembolic disease 7.5 cm right and 1.3 cm left pleural effusions Electronically authenticated by: NGUYỄN DOWD Date: 11/03/2023 10:32
--- NOTE | 2023-11-03 09:12 | CA_ITS ---
Patient Name: EVAN JULIEN MR#: [id number] : 1980 Exam Date: 11/03/2023 Ordering Doctor: SHAIKH Vamsi BONILLA . ECHOCARDIOGRAM REPORT PROCEDURE: CA ECHO DOPPLER COMPLETE INDICATIONS: CHF, atrial fibrillation, pneumonia, lung cancer - chemo COMPARISON: None. DESCRIPTION: COMPLETE ECHOCARDIOGRAM Real-time transthoracic echocardiography with 2D, M-mode, spectral and color flow Doppler performed. QUALITY: Technical quality was good. LEFT VENTRICLE: Normal chamber size. Normal left ventricular wall thickness. LV EF: Global left ventricular systolic function is difficult to assess but appears reduced; visually estimated ejection fraction is 35 to 40%. Unable to assess regional wall motion abnormalities. DIASTOLIC: Not adequately assessed due to heart rhythm. ATRIAL SEPTUM: Inadequately seen. LEFT ATRIUM: Normal chamber size. RIGHT ATRIUM: Mild dilatation. RIGHT VENTRICLE: Normal chamber size. Decreased right ventricular systolic function. TRICUSPID VALVE: Normal mobility and thickness. No stenosis with trivial regurgitation. Doppler studies reveal mildly (35-45) elevated right sided pressures. RVSP 42 mmHg MITRAL VALVE: Normal mobility and thickness. No evidence of mitral valve stenosis. Moderate mitral annular calcification. Moderate mitral regurgitation. AORTIC VALVE: Normal trileaflet appearance. No visible sclerosis. Normal leaflet mobility. No evidence of aortic valve stenosis. No aortic regurgitation. AORTIC ROOT: Normal diameter and appearance. Ascending aorta is normal in size. PULMONIC VALVE: Normal thickness and mobility. No stenosis. No regurgitation. PERICARDIUM: No evidence of pericardial effusion. IVC: IVC is mildly dilated, does not collapse. CONCLUSION: 1. Global left ventricular systolic function is difficult to assess but appears reduced; visually estimated ejection fraction is 35 to 40% 2. Right ventricle is normal in size with reduced systolic function 3. The right atrium is dilated 4. Mildly elevated right ventricular systolic pressure; RVSP 42 mmHg 5. Moderate mitral regurgitation Adult Echocardiography Procedure Report Left Ventricle LVEDD (3.7 - 5.6 cm): 5.68 cm LVESD (2.2 - 4.0 cm): 5.41 cm LVIVS thickness (0.6 - 1.2 cm): 1.05 cm LVPW thickness (0.5 - 1.0 cm): 1.12 cm LVOT Max Gradient: 1.69 mm[Hg] LVOT Area (cm2): 0.65 m/s Peak Velocity (LVOT): 0.65 m/s LVOT Diameter 2.51 cm Left Atrium LA Volume Index (2D A2C): 35.81 ml/m2 Left Atrium Systolic Dimension: 3.76 cm Mitral Valve Right Ventricle Aorta AO Root Diam: 3.42 cm Ascending Ao Diam: 2.77 cm Aortic Valve AoV Area (Peak Beltran): 3.49 cm2, 3.49 cm2 Peak Velocity(Antegrade Flow): 0.92 m/s Peak Gradient(Antegrade Flow): 3.36 mm[Hg] Tricuspid Valve Peak Velocity (Regurgitant Flow): 2.62 m/s Pulmonic Valve Peak Velocity: 0.61 m/s Peak Gradient: 1.74 mm[Hg], 1.25 mm[Hg] Right Atrium Right Atrium Systolic Pressure: 75.37 ml, 75.37 ml Dictated by: Avni Lebron M.D. on 11/03/2023 at 14:58 Approved by: Avni Lebron M.D. on 11/03/2023 at 15:01
--- NOTE | 2023-11-03 09:45 | CM.NOTE ---
Rounds made with Dr. Camarena. Mr. Rasmussen relates he did not sleep well last night and has been coughing. Dr. Camarena discussed plan of care. No discharge today.
[2023-11-03] MEDS: FUROSEMIDE 40 MG/4 ML VIAL 80 MG IVP (10:01)
[2023-11-03] MEDS: DIGOXIN 500 MCG/2 ML AMPUL 250 MCG IV (10:01)
--- NOTE | 2023-11-03 11:40 | P.IMPN_ITS ---
Progress Note: A&P Assessment and Plan (1) Acute respiratory failure with hypoxia: Assessment and Plan: Hypoxic overnight with pulse Ox as low as 85% according to RN. Patient is visibly SOB at rest, unable to carry on a conversation. Likely multifactorial and due to RUL PNA and acute on chronic diastolic HF from judicious IV hydration C/w IV abx. Started patient on IV diuresis. (2) Right upper lobe pneumonia: Assessment and Plan: C/w Rocephin/Levaquin F./u blood and sputum cx. 'CT chest ordered for better visualization of lung parenchyma/r/o complicated PNA. Qualifiers: Pneumonia type: due to unspecified organism Qualified Code(s): J18.9 - Pneumonia, unspecified organism (3) Atrial fibrillation with rapid ventricular response: Assessment and Plan: Poorly controlled HR while on cardizem drip. Switch coreg to Lopressor 25 TID, added IV cardizem. Wean of IV cardizem as tolerated. ECHO pending. (4) (HFpEF) heart failure with preserved ejection fraction: Assessment and Plan: Acute on chronic diastolic HF, exacerbated by Afib with RVR and IV hydration One dose of 80 mg IV lasix ordered. C/w IV lasix 40 q12, monitor I/O, weight daily. ECHO pending. Qualifiers: Heart failure chronicity: acute on chronic Qualified Code(s): I50.33 - Acute on chronic diastolic (congestive) heart failure (5) Squamous cell carcinoma of lung, stage IV: Assessment and Plan: On chemo as outpatient. Qualifiers: Laterality: unspecified laterality Qualified Code(s): C34.90 - Malignant neoplasm of unspecified part of unspecified bronchus or lung (6) Dehydration with hyponatremia: Assessment and Plan: Volume overload on exa. IVF stopped. Started on Lasix. (7) Hypomagnesemia: Assessment and Plan: repleted. (8) Opioid use disorder in remission: Assessment and Plan: On Suboxone. C/w same. Avoid narcotics. (9) Immunosuppressed due to chemotherapy: Assessment and Plan: Monitor closely. At high risk of treatment failure/poor prognosis due to immunosuppression (10) Obesity: Assessment and Plan: Recommend weight loss. Defer to PCP Qualifiers: Obesity type: due to excess calories Obesity classification: adult class 2 (BMI 35 - 39.9) Serious obesity comorbidity presence: without serious comorbidity Body mass index: BMI 39.0-39.9 Qualified Code(s): E66.09 - Other obesity due to excess calories; Z68.39 - Body mass index [BMI] 39.0-39.9, adult Plan Patient changed to inpatient status after initial period of observation as his clinical status deteriorated and worsened. He now has acute on chronic diastolic HF resulting in acute resp failure with hypoxia that will require IV diuresis and close monitoring of his renal function, serum electrolytes. Furthermore, his HR is still poorly controlled while on IV cardizem drip. I added Po Lopressor/IV digoxin and d/ce'ed Coreg. He will need close hemodynamic monitoring in ICU to ensure his BP remains stable and HR improves with these changes so that he can be weaned off of IV cardizem. Internal Medicine - PN: Subj Subjective Interval history: Seen and examined. HR still poorly controlled while on Cardizem. Patients appears uncomfortable/tachypneic and has worsening SOB. His IVF were discontinued overnight. He has +3 LE edema now. He was unable to sleep overnight due to orthopnea. He could not lay in bed due to SOB. Exam Constitutional Vital Signs, click to edit/add: Last Vital Signs Temp 98.4 F 11/03/23 07:00 Pulse 132 H 11/03/23 10:00 Resp 21 H 11/03/23 07:43 BP 129/86 11/03/23 07:43 Pulse Ox 89 L 11/03/23 07:43 O2 Del Method Room Air 11/03/23 06:31 O2 Flow Rate 3 11/03/23 04:39 Common normals: oriented x3 General appearance: cooperative, in distress moderate and ill appearing Nutritional appearance: obese [facility] Common normals: normocephalic and head/scalp atraumatic Respiratory Common normals: normal respiratory effort, no retractions and no use of accessory muscles Effort & inspection: tachypneic Auscultation: rales and diminished lung sounds Other: Conversational dyspnea noted. Cardio Common normals: S1 normal heart sound and S2 normal heart sound Jugular venous distention: JVD Rate: tachycardic Rhythm: abnormal rhythm Extremity Common normals: full ROM General: edema (+3) Neuro Common normals: oriented x3, moves all extremities and no focal motor deficits Psych Common normals: mental status grossly normal, thought process normal, denies homicidal ideation and denies suicidal ideation Internal Medicine - PN: Obj Da Labs Labs: Laboratory Results - last 24 hr 11/02/23 11/02/23 11/02/23 15:25 15:57 16:50 WBC 7.4 RBC 3.66 L Hgb 11.1 L Hct 33.0 L MCV 90.2 MCH 30.3 MCHC 33.6 RDW 15.7 H Plt Count 194 MPV 10.6 Neut % (Auto) 73.8 Lymph % (Auto) 16.4 L Bullock % (Auto) 5.3 Eos % (Auto) 0.0 L Baso % (Auto) 0.3 Neut # (Auto) 5.5 Lymph # (Auto) 1.2 Bullock # (Auto) 0.4 Eos # (Auto) 0.0 Baso # (Auto) 0.0 Abs Immat Gran (auto) 0.31 H Seg Neuts % (Manual) Band Neutrophils % Lymphocytes % (Manual) Atypical Lymphs % (Man) Monocytes % (Manual) Eosinophils % (Manual) Basophils % (Manual) Myelocytes % Promyelocytes % Imm/Tot Granulo (auto) 4.2 H Neutrophils # (Manual) Band Neutrophils # Lymphocytes # (Manual) Abs Atypical Lymphs Man Monocytes # (Manual) Eosinophils # (Manual) Basophils # (Manual) Myelocytes # Promyelocytes # Toxic Granulation Sodium 132 L Potassium 3.7 Chloride 96 L Carbon Dioxide 27.1 Anion Gap 12.6 BUN 6.0 L Creatinine 1.02 Est GFR ( Amer) >60 Est GFR (Non-Af Amer) >60 BUN/Creatinine Ratio 5.9 Glucose 174 H Lactate 1.5 Calcium 9.0 Magnesium 1.6 L Total Bilirubin 1.5 H AST 16 ALT 50 Alkaline Phosphatase 33 L Troponin I High Sens 17.9 NT-Pro-B Natriuret Pep 1292.0 H* Total Protein 7.0 Albumin 3.3 L Globulin 3.7 Albumin/Globulin Ratio 0.9 Adenovirus (PCR) Not detected B. pertussis DNA (PCR) Not detected B.parapertussis DNA PCR Not detected C. pneumoniae DNA (PCR) Not detected Coronavirus Type OC43 Not detected Coronavirus Type HKU1 Not detected Coronavirus Type 229E Not detected Coronavirus Type NL63 Not detected Human Metapneumovir PCR Not detected Influenza Type A (PCR) Not detected Influenza Type B (PCR) Not detected M. pneumoniae (PCR) Not detected Parainfluenza PCR Not detected Parainfluenza 2 (PCR) Not detected Parainfluenza 3 (PCR) Not detected Parainfluenza 4 (PCR) Not detected RSV (RT-PCR) Not detected Entero/Rhino (PCR) Not detected SARS-CoV-2 (PCR) Not detected 11/03/23 05:24 WBC 6.5 RBC 3.30 L Hgb 9.9 L Hct 29.9 L MCV 90.6 MCH 30.0 MCHC 33.1 RDW 16.0 H Plt Count 197 MPV 10.5 Neut % (Auto) Lymph % (Auto) Bullock % (Auto) Eos % (Auto) Baso % (Auto) Neut # (Auto) Lymph # (Auto) Bullock # (Auto) Eos # (Auto) Baso # (Auto) Abs Immat Gran (auto) Seg Neuts % (Manual) 70.0 Band Neutrophils % 1.0 Lymphocytes % (Manual) 15.0 L Atypical Lymphs % (Man) 5.0 Monocytes % (Manual) 6.0 Eosinophils % (Manual) 0.0 L Basophils % (Manual) 0.0 L Myelocytes % 1.0 Promyelocytes % 2.0 Imm/Tot Granulo (auto) Neutrophils # (Manual) 4.55 Band Neutrophils # 0.1 Lymphocytes # (Manual) 0.97 L Abs Atypical Lymphs Man 0.32 Monocytes # (Manual) 0.39 Eosinophils # (Manual) 0.00 Basophils # (Manual) 0.00 Myelocytes # 0.06 Promyelocytes # 0.13 Toxic Granulation 3+ Sodium 135 L Potassium 4.2 Chloride 99 Carbon Dioxide 25.7 Anion Gap 14.5 BUN 11.0 Creatinine 0.93 Est GFR ( Amer) >60 Est GFR (Non-Af Amer) >60 BUN/Creatinine Ratio 11.8 Glucose 158 H Lactate Calcium 8.5 Magnesium Total Bilirubin 1.2 H AST 123 H ALT 108 H Alkaline Phosphatase 31 L Troponin I High Sens NT-Pro-B Natriuret Pep Total Protein 6.0 L Albumin 2.7 L Globulin 3.3 Albumin/Globulin Ratio 0.8 Adenovirus (PCR) B. pertussis DNA (PCR) B.parapertussis DNA PCR C. pneumoniae DNA (PCR) Coronavirus Type OC43 Coronavirus Type HKU1 Coronavirus Type 229E Coronavirus Type NL63 Human Metapneumovir PCR Influenza Type A (PCR) Influenza Type B (PCR) M. pneumoniae (PCR) Parainfluenza PCR Parainfluenza 2 (PCR) Parainfluenza 3 (PCR) Parainfluenza 4 (PCR) RSV (RT-PCR) Entero/Rhino (PCR) SARS-CoV-2 (PCR)
[2023-11-03] MEDS: METOPROLOL TARTRATE 25 MG TABLET PO ×2 (13:45→21:11)
[2023-11-03] MEDS: DIGOXIN 500 MCG/2 ML AMPUL 125 MCG IV (17:05)
[2023-11-03] MEDS: CEFTRIAXONE 1,000 MG in 0.9 % SODIUM CHLORIDE 50 ML 100 MG IV (17:06)
[2023-11-03] MEDS: LEVOFLOXACIN IN DEXTROSE 5 % 750 MG/150 ML PREMIX 100 MG IV (20:12)
[2023-11-03] MEDS: FUROSEMIDE 40 MG/4 ML VIAL IVP (20:12)
[2023-11-03] MEDS: HYDROXYZINE PAMOATE 25 MG CAPSULE 50 MG PO (21:11)
[2023-11-03] MEDS: BENZONATATE 100 MG CAPSULE PO (21:11)
[2023-11-04] VITALS (153 sets, daily range): BP systolic 102–114; BP diastolic 65–90; PULSE 92–174; TEMP 36.6–37.2; O2SAT 90–98
[2023-11-04] MEDS: DIGOXIN 500 MCG/2 ML AMPUL 125 MCG IV ×2 (02:02→09:55)
[2023-11-04] MEDS: METOPROLOL TARTRATE 25 MG TABLET PO ×3 (05:28→21:06)
[2023-11-04 06:23] LABS: Basophils Percent Auto 0.5 % (0.2-2.0); Eosinophils Percent Auto 0.2 % (0.9-7.0); Hematocrit 30.4 % (42.0-54.0); Immature Granulocytes Abs Auto 0.29 10^3/uL (0.00-0.03); Immature Granulocytes Pct Auto 5.1 % (0.0-0.5); Lymphocytes Absolute Auto 1.5 10^3/uL (1.2-3.8); Lymphocytes Percent Auto 26.5 % (20.5-60.0); Mean Corpuscular HGB Conc 32.9 g/dL (29.9-35.2); Mean Corpuscular Hemoglobin 29.9 pg (25.9-34.0); Mean Platelet Volume 10.2 fL (9.5-13.5); Monocytes Absolute Auto 0.8 10^3/uL (0.3-0.8); Monocytes Percent Auto 13.8 % (1.7-12.0); Neutrophils Absolute Auto 3.1 10^3/uL (1.4-6.5); Neutrophils Percent Auto 53.9 % (43.0-75.0); Platelet Count 203 10^3/uL (150-450); Red Blood Count 3.34 10^6/uL (4.70-6.10); Red Cell Distribution Width 15.9 % (11.0-15.0); White Blood Count 5.7 10^3/uL (4.0-11.0)
[2023-11-04 06:45] LABS: Alanine Aminotransferase 99 U/L (16-63); Albumin Globulin Ratio 0.7; Albumin Level 2.5 g/dL (3.4-5.0); Alkaline Phosphatase 31 U/L (46-116); Anion Gap 12.5; Aspartate Amino Transferase 47 U/L (15-37); Bilirubin Total 0.7 mg/dL (0.2-1.0); Calcium 8.7 mg/dL (8.5-10.1); Carbon Dioxide 27.1 mmol/L (21.0-32.0); Chloride 104 mmol/L (98-107); Estimated GFR (African America >60 (>=60); Estimated GFR (Non-African Ame >60 (>=60); Globulin 3.4 g/dL; Glucose 83 mg/dL (74-106); Potassium 3.6 mmol/L (3.5-5.1); Sodium 140 mmol/L (136-145); Total Protein 5.9 g/dL (6.4-8.2)
[2023-11-04] MEDS: APIXABAN 5 MG TABLET PO ×2 (08:32→20:28)
[2023-11-04] MEDS: FUROSEMIDE 40 MG/4 ML VIAL IVP (08:32)
[2023-11-04] MEDS: Buprenorphine-Naloxone 8-2 mg film 1 EACH SL ×2 (08:33→20:30)
[2023-11-04] MEDS: AMIODARONE IN DEXTROSE,ISO-OSM 150 MG/100 ML PIGGYBACK 400 MG IV (09:55)
--- NOTE | 2023-11-04 10:09 | CM.NOTE ---
Rounds made with Dr. Camarena, discussed with pt about elevated HR and giving dose of IV Amiodarone and consulting cardiology for further recommendations.
--- NOTE | 2023-11-04 10:13 | P.IMPN_ITS ---
Progress Note: A&P Assessment and Plan (1) Acute respiratory failure with hypoxia: Assessment and Plan: On RA now. Doing well. Due to multifocal PNA/acute on chronic systolic HF. (2) Multifocal pneumonia: Assessment and Plan: Multifocal PNA on CT. Negative resp panel. Likely bacterial PNA. on rocephin/Levaquin. F/u sputum/blood cx. (3) Acute on chronic systolic (congestive) heart failure: Assessment and Plan: ECHO shows EF of 35%, likely due to persistent Afib. D/c cardizem. HR still poorly controlled. Switch from Lopressor to Toprol due to HFrEF. Ordered amiodarone 150 mg bolus and will then start on Amiodarone drip. Cardiology consulted. Hold other GDMT for now to avoid hypotension. C/w IV lasix. Monitor I/O, daily weight. (4) Atrial fibrillation with rapid ventricular response: Assessment and Plan: Was doing better overnight and was weaned off of Cardizem drip. 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 Ordered amiodarone bolus and started on continuous amiodarone infusion. D/c IV digoxin - received over 3 doses, switch to oral Dig. Cardiology consulted. (5) Squamous cell carcinoma of lung, stage IV: Assessment and Plan: On chemotherapy. Obtain records from Oncology office to ensure his chemotherapy is not cardiotoxic. Qualifiers: Laterality: unspecified laterality Qualified Code(s): C34.90 - Malignant neoplasm of unspecified part of unspecified bronchus or lung (6) Dehydration with hyponatremia: Assessment and Plan: Volume overload. On IV lasix. (7) Hypomagnesemia: Assessment and Plan: Keep Mag above 2 (8) Opioid use disorder in remission: Assessment and Plan: On Suboxone. (9) Immunosuppressed due to chemotherapy: Assessment and Plan: Monitor closely. At high risk of treatment failure/poor prognosis due to immunosuppression (10) Obesity: Assessment and Plan: Recommend weight loss. Defer to PCP Qualifiers: Obesity type: due to excess calories Obesity classification: adult class 2 (BMI 35 - 39.9) Serious obesity comorbidity presence: without serious comorbidity Body mass index: BMI 39.0-39.9 Qualified Code(s): E66.09 - Other obesity due to excess calories; Z68.39 - Body mass index [BMI] 39.0-39.9, adult Internal Medicine - PN: Subj Subjective Interval history: Seen and examined. Patient was weaned off of Cardizem drip and his HR was well controlled overnight until earlier today where now his HR is uncontrolled and persistently above 140. He is subjectively feeling better and reports improvement in his resp status and denies SOB. Exam Constitutional Vital Signs, click to edit/add: Last Vital Signs Temp 97.8 F 11/04/23 08:30 Pulse 146 H 11/04/23 09:55 Resp 12 11/04/23 03:59 BP 102/65 11/04/23 07:54 Pulse Ox 92 L 11/04/23 08:30 O2 Del Method Room Air 11/04/23 02:09 O2 Flow Rate 3 11/03/23 04:39 Common normals: oriented x3 General appearance: cooperative Nutritional appearance: obese Respiratory Common normals: normal respiratory effort, no retractions and no use of accessory muscles Auscultation: diminished lung sounds Cardio Common normals: S1 normal heart sound and S2 normal heart sound Jugular venous distention: JVD Rate: tachycardic Rhythm: abnormal rhythm Extremity Common normals: full ROM General: edema (+1) Neuro Common normals: oriented x3, moves all extremities and no focal motor deficits Psych Common normals: mental status grossly normal, thought process normal, denies homicidal ideation and denies suicidal ideation Internal Medicine - PN: Obj Da Labs Labs: Laboratory Results - last 24 hr 11/04/23 05:24 WBC 5.7 RBC 3.34 L Hgb 10.0 L Hct 30.4 L MCV 91.0 MCH 29.9 MCHC 32.9 RDW 15.9 H Plt Count 203 MPV 10.2 Neut % (Auto) 53.9 Lymph % (Auto) 26.5 Terry % (Auto) 13.8 H Eos % (Auto) 0.2 L Baso % (Auto) 0.5 Neut # (Auto) 3.1 Lymph # (Auto) 1.5 Terry # (Auto) 0.8 Eos # (Auto) 0.0 Baso # (Auto) 0.0 Abs Immat Gran (auto) 0.29 H Imm/Tot Granulo (auto) 5.1 H Sodium 140 Potassium 3.6 Chloride 104 Carbon Dioxide 27.1 Anion Gap 12.5 BUN 11.0 Creatinine 1.00 Est GFR ( Amer) >60 Est GFR (Non-Af Amer) >60 BUN/Creatinine Ratio 11.0 Glucose 83 Calcium 8.7 Total Bilirubin 0.7 AST 47 H ALT 99 H Alkaline Phosphatase 31 L Total Protein 5.9 L Albumin 2.5 L Globulin 3.4 Albumin/Globulin Ratio 0.7
[2023-11-04] MEDS: AMIODARONE IN DEXTROSE,ISO-OSM 360 MG/200 ML PLAST..BAG 33.333 MG IV (10:58)
[2023-11-04] MEDS: POTASSIUM CHLORIDE 10 MEQ ER TABLET 40 MEQ PO (10:59)
[2023-11-04] MEDS: KETOROLAC TROMETHAMINE 30 MG/ML VIAL IVP (11:05)
[2023-11-04 11:22] LABS: Magnesium 1.9 mg/dL (1.8-2.4)
[2023-11-04] MEDS: 0.9 % SODIUM CHLORIDE 1,000 ML 500 ML IV (13:30)
--- NOTE | 2023-11-04 13:34 | ECG_ITS ---
[facility] Test Date: 2023-11-04 Pat Name: EVAN JULIEN Department: Room: [facility] Gender: Male Permit Technician: : 1980 Requested By: Order Number: [id number] Reading MD: JOHNNY PATEL Measurements Intervals [place] Rate: 115 P: -[id number] DE: -[id number] QRS: 94 QRSD: 88 T: 38 QT: 304 QTc: 372 Interpretive Statements 87202 Atrial fibrillation with rapid ventricular response 99063 Nonspecific Twave abnormality, probably digitalis effect 7102 Moderate right axis deviation 9140 abnormal rhythm ECG Compared to ECG 11/02/2023 15:23:26 No significant changes Electronically Signed On 11-04-2023 18:29:03 EDT by JOHNNY PATEL
[2023-11-04] MEDS: METOPROLOL TARTRATE 5 MG/5 ML VIAL IVP (13:40)
--- NOTE | 2023-11-04 13:52 | PC.NURSE ---
1320 Roger Chinchilla present for consult Cardiology. Verbal order for 5mg IV lopressor. Lopressor given. Family at bedside. 1325 Call light on. Patint diaphoretc and pale. just dont feel good Roger Chinchilla called to bedside. HR 120's a fib. EKG obtained. Fluid bolus started. Patint without neuro deficits. Oriented x 3. Bed Flat 1330 Feeling better . HR 130's a fib. See vitals tab. Labs obtained. Roger Chinchilla speaks with family about need for transfer to [facility]. Patient and family voiced understanding.
[2023-11-04 13:55] LABS: Basophils Percent Auto 0.6 % (0.2-2.0); Hematocrit 32.6 % (42.0-54.0); Hemoglobin 10.8 g/dL (14.0-18.0); Immature Granulocytes Abs Auto 0.29 10^3/uL (0.00-0.03); Immature Granulocytes Pct Auto 4.5 % (0.0-0.5); Lymphocytes Absolute Auto 1.6 10^3/uL (1.2-3.8); Lymphocytes Percent Auto 24.9 % (20.5-60.0); Mean Corpuscular HGB Conc 33.1 g/dL (29.9-35.2); Mean Corpuscular Hemoglobin 30.3 pg (25.9-34.0); Mean Corpuscular Volume 91.6 fL (80.0-94.0); Mean Platelet Volume 9.7 fL (9.5-13.5); Monocytes Percent Auto 16.1 % (1.7-12.0); Neutrophils Absolute Auto 3.5 10^3/uL (1.4-6.5); Neutrophils Percent Auto 53.9 % (43.0-75.0); Platelet Count 225 10^3/uL (150-450); Red Blood Count 3.56 10^6/uL (4.70-6.10); Red Cell Distribution Width 16.2 % (11.0-15.0); White Blood Count 6.5 10^3/uL (4.0-11.0)
[2023-11-04 14:21] LABS: Alanine Aminotransferase 108 U/L (16-63); Albumin Globulin Ratio 0.8; Albumin Level 2.8 g/dL (3.4-5.0); Alkaline Phosphatase 41 U/L (46-116); Anion Gap 11.1; Aspartate Amino Transferase 53 U/L (15-37); BUN Creatinine Ratio 11.6; Bilirubin Total 0.8 mg/dL (0.2-1.0); Calcium 8.8 mg/dL (8.5-10.1); Carbon Dioxide 29.2 mmol/L (21.0-32.0); Chloride 101 mmol/L (98-107); Estimated GFR (African America >60 (>=60); Estimated GFR (Non-African Ame >60 (>=60); Globulin 3.6 g/dL; Glucose 114 mg/dL (74-106); Magnesium 1.5 mg/dL (1.8-2.4); Potassium 3.3 mmol/L (3.5-5.1); Sodium 138 mmol/L (136-145); Total Protein 6.4 g/dL (6.4-8.2); Troponin I High Sensitivity 20.2 pg/mL (4.0-76.1)
--- NOTE | 2023-11-04 15:32 | P.CN_ITS ---
Consult Note: HPI Data of Consult Patient: new to practice Consult date: 11/04/23 Requesting Physician: Shaikh Chad MD Primary Care Provider: Non-Staff Physician, Consult Narrative Reason for consult: A fib with RVR, Acute systolic heart failure Narrative: 43 yo male presented to ED for worsening SOB, headache/generalized weakness, productive sputum x 1 week. Was noted to be in A fib with RVR- 150-170 bpm- he does have a h/o A fib in the past. Currently pt is on amiodarone infusion, was loaded with digoxin yesterday and oral dose today. Primary service is treating pt for pneumonia with antibiotics regime and diuresing with lasix IV. Pt admits h/o Systolic heart failure, A fib on eliquis, lung cancer and on chemo currently. Reports that he has been taking half doses of eliquis and skipping some other meds (coreg/diltiazem) r/t not feeling well with chemo. Assessed at bedside, pt's family at bedside currently. States that he does not feel well and like my sugar is low, I feel shaky and my vision is shaky. Denied chest pain, states SOB is maybe a little better. Reports that he feels h eart beating fast. Denied lightheadedness/dizziness or syncope. Denied fever, chills, N/V/D- but admits poor appetite today. cc:: CC: Shaikh Chad MD Review of Systems ROS Status of ROS 10 or more systems reviewed and unremark able except as noted in history and below [facility] Medical History (Updated 11/04/23 @ 10:17 by Shaikh Chad MD) Immunosuppressed due to chemotherapy ?D84.821 - Immunodeficiency due to drugs (ICD-10) ?T45.1X5A - Adverse effect of antineoplastic and immunosuppressive drugs, initial encounter (ICD-10) ?Z79.899 - Other termite control service representative (current) drug therapy (ICD-10) Opioid use disorder in remission ?F11.91 - Opioid use, unspecified, in remission (ICD-10) (HFpEF) heart failure with preserved ejection fraction ?I50.30 - Unspecified diastolic (congestive) heart failure (ICD-10) Obesity ?E66.9 - Obesity, unspecified (ICD-10) Squamous cell carcinoma of lung, stage IV ?C34.90 - Malignant neoplasm of unspecified part of unspecified bronchus or lung (ICD-10) Social History Highest level of school completed/degree received: some college, no degree Little interest or pleasure in doing things: not at all Feeling down, depressed, or hopeless: not at all Do you think of yourself as: straight/heterosexual Gender Identity: male Meds Home Medications and Allergies Home Medications ?Medication ?Instructions ?Recorded ?Confirmed ?Type albuterol sulfate 90 mcg/actuation 2 puff inhalation Q6H PRN 11/02/23 11/02/23 History aerosol inhaler shortness of breath or wheezing apixaban 5 mg tablet (Eliquis) 5 mg PO Q12H 11/02/23 11/02/23 History buprenorphine 8 mg-naloxone 2 mg 1 film sublingual BID 11/02/23 11/02/23 History sublingual film carvedilol 3.125 mg tablet 3.125 mg PO BID 11/02/23 11/02/23 History dexamethasone 4 mg tablet 4 mg PO BID 11/02/23 11/02/23 History diltiazem HCl 30 mg tablet 30 mg PO BID 11/02/23 11/02/23 History furosemide 20 mg tablet 20 mg PO DAILY 11/02/23 11/02/23 History hydroxyzine pamoate 50 mg capsule 50 mg PO .QHS PRN anxiety 11/02/23 11/02/23 History prochlorperazine maleate 10 mg 10 mg PO Q6H PRN nausea and 11/02/23 11/02/23 History tablet vomiting Allergies Allergy/AdvReac Type Severity Reaction Status Date / Time acetaminophen AdvReac Intermediate Nausea Verified 11/02/23 15:22 [From Darvocet-N] propoxyphene AdvReac Intermediate Nausea Verified 11/02/23 15:22 [From Darvocet-N] Exam Constitutional Vital Signs, click to edit/add: Last Vital Signs Temp 97.8 F 11/04/23 08:30 Pulse 160 H 11/04/23 14:00 Resp 24 H 11/04/23 13:56 BP 109/87 11/04/23 13:37 Pulse Ox 96 11/04/23 13:56 O2 Del Method Room Air 11/04/23 11:10 O2 Flow Rate 3 11/03/23 04:39 Common normals: oriented x3 General appearance: cooperative and ill appearing Nutritional appearance: obese Respiratory Common normals: no use of accessory muscles Effort & inspection: able to speak in complete sentences Auscultation: diminished lung sounds (B/L posterior bases) Cardio Common normals: S1 normal heart sound, S2 normal heart sound, no gallops, no murmurs and no rub Rate: tachycardic (150's) Rhythm: abnormal rhythm Peripheral pulses: radial pulses present, posterior tibial pulses present and dorsalis pedis pulses present Extremity Common normals: no clubbing, cyanosis or edema (2-3+ BLE edema, extremities cool to touch) Neuro Common normals: oriented x3, CN's II-XII intact bilaterally, moves all extremities, no focal motor deficits and no sensory deficits noted Sensorium/orientation: oriented to person, oriented to place and oriented to time Speech: speech normal Motor exam: strength 5/5 throughout Psych Common normals: cooperative Mood and affect: anxious Results Labs Labs: Short CBC 11/04/23 11/04/23 Range/Units 05:24 13:50 WBC 5.7 6.5 (4.0-11.0) 10^3/uL Hgb 10.0 L 10.8 L (14.0-18.0) g/dL Hct 30.4 L 32.6 L (42.0-54.0) % Plt Count 203 225 (150-450) 10^3/uL BMP 11/04/23 11/04/23 05:24 13:50 Sodium 140 138 Potassium 3.6 3.3 L Chloride 104 101 Carbon Dioxide 27.1 29.2 BUN 11.0 14.0 Creatinine 1.00 1.21 Glucose 83 114 H Calcium 8.7 8.8 Liver Function 11/04/23 11/04/23 Range/Units 05:24 13:50 Total Bilirubin 0.7 0.8 (0.2-1.0) mg/dL AST 47 H 53 H (15-37) U/L ALT 99 H 108 H (16-63) U/L Alkaline Phosphatase 31 L 41 L (46-116) U/L Albumin 2.5 L 2.8 L (3.4-5.0) g/dL Pro BNP 1292 Mag 1.6 troponin HS- negative ECG Attestation: ?I have reviewed the pertinent ECG results. ECG interpretation date: 11/04/23 ECG interpretation time: 13:00 Interpretation: Interpretive Statements 67340 Atrial fibrillation with rapid ventricular response 29357 Nonspecific Twave abnormality, probably digitalis effect 7102 Moderate right axis deviation 9140 abnormal rhythm ECG No previous ECG available for comparison Imaging echocardiogram: Attestation: I have reviewed the pertinent imaging results. Radiologist's impression: CONCLUSION: 1. Global left ventricular systolic function is difficult to assess but appears reduced; visually estimated ejection fraction is 35 to 40% 2. Right ventricle is normal in size with reduced systolic function 3. The right atrium is dilated 4. Mildly elevated right ventricular systolic pressure; RVSP 42 mmHg 5. Moderate mitral regurgitation CT scan - chest: Attestation: I have reviewed the pertinent imaging results. Radiologist's impression: [place] [address] CT Scan Report Signed Patient: EVAN JUILEN MR#: [id number] : 1980 Acct:[id number] Age/Sex: 43 / M ADM Date: 11/02/23 Loc: ICU 270-[address]: Shaikh Chad Pitts Ordering Physician: Shaikh Hong Camarena Date of Service: 11/03/23 Procedure(s): CT chest w con Accession Number(s): [id number] cc: Physician,Non-Staff Roger.Calvin~ [facility] [place] [address] Patient Name: EVAN JULIEN MRN: [id number] date: 1980 Sex: M Assigned Patient Location: ICU Current Patient Location: ICU Accession/Order Number: [id number] Exam Date: 11/03/2023 09:23 Report Date: 11/03/2023 10:32 At the request of: SHAIKH CHAD Procedure: CT chest w con EXAMINATION: CT chest w con HISTORY: Lung Cancer/Pneumonia COMPARISON: 05/29/2022, 11/02/2023 TECHNIQUE: Multi-planar CT images were created with IV contrast. Axial, Coronal, and Sagittal images. Dose reduction techniques were achieved by using automated exposure control and/or adjustment of mA and/or kV according to patient size and/or use of iterative reconstruction technique. FINDINGS: LUNGS: Diffuse peribronchial thickening without bronchiectasis. Scattered patchy groundglass and consolidative densities noted throughout both lungs. The most masslike consolidation is noted in the posterior right upper lobe measuring 6.1 x 4.5 cm, axial image 35 PLEURA: 7.5 cm right and 1.3 cm left pleural effusions VASCULATURE: Normal postcontrast opacification of the central pulmonary arterial tree with no filling defect to suggest a pulmonary embolus NANCY: No mass or adenopathy. MEDIASTINUM: No mass or adenopathy. CARDIAC: No enlargement or pericardial effusion Coronary arteries: Absent calcifications AORTA: No aortic aneurysm or dissection CHEST WALL: No mass or axillary adenopathy. BONES: No bone lesion or fracture. LIMITED ABDOMEN: No suspicious findings. Limited images of the upper abdomen. OTHER: Negative. CT/CT chest w con IMPRESSION: Bilateral multifocal parenchymal infiltrates, multifocal pneumonia is favored however recurrent malignancy is not excluded No central pulmonary thromboembolic disease 7.5 cm right and 1.3 cm left pleural effusions Electronically authenticated by: NGUYỄN DOWD Date: 11/03/2023 10:32 Assessment and Plan Assessment and Plan (1) Acute on chronic systolic (congestive) heart failure: Assessment and Plan: [facility] III- EF 30-35%, currently in acute exacerbation with fluid overload and A fib with RVR Continue GDMT- lasix diuresis 40 mg IV bid, Digoxin- was IV loaded yesterday and oral maintenance today, metoprolol 25 mg po bid will increase for better rate control. Lopressor 5 mg IVP now for rate control- given and heart rate decreased to 110- 130 bpm from 150- pt became diaphoretic, weak, and very pale- therefore EKG, troponin, stat CBC, CMP, MAg, IVF bolus given- vitals remained stable but Provider d/w Dr Lebron regarding pt status with A fib RVR, HFrEF- 30%, PNA, and current unstability and he recommends to transfer pt to [facility] for transfer ICU to a higher level of MICU with critical care team management and consulting Cardiology service- he feels pt may possibly be developing sepsis. Dr Douglass notified and transfer process began- provider d/w pt and family and they are agreeable with this plan (2) Acute respiratory failure with hypoxia: (3) Atrial fibrillation with rapid ventricular response: Assessment and Plan: Currently on eliquis anticoagulation- recommend to transition to heparin infusion and hold eliquis. 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 Continue metoprolol with IV PRN, and digoxin for rate control - with reduced EF prefer to not use CA Channel blockers unless absolutely necessary (4) Multifocal pneumonia: Assessment and Plan: managed by others (5) Squamous cell carcinoma of lung, stage IV: Assessment and Plan: managed by others Qualifiers: Laterality: unspecified laterality Qualified Code(s): C34.90 - Malignant neoplasm of unspecified part of unspecified bronchus or lung (6) Dehydration with hyponatremia: Assessment and Plan: IVF bolus given (7) Hypomagnesemia: (8) Opioid use disorder in remission: (9) Immunosuppressed due to chemotherapy: (10) Obesity: Qualifiers: Obesity type: due to excess calories Obesity classification: adult class 2 (BMI 35 - 39.9) Serious obesity comorbidity presence: without serious comorbidity Body mass index: BMI 39.0-39.9 Qualified Code(s): E66.09 - Other obesity due to excess calories; Z68.39 - Body mass index [BMI] 39.0-39.9, adult Plan transfer to [facility] MICU for critical care management as per Dr Mcgrath recommendations.
[2023-11-04] MEDS: MAGNESIUM SULFATE IN WATER 2 GM/50 ML PREMIX IV (16:56)
[2023-11-04] MEDS: AMIODARONE IN DEXTROSE,ISO-OSM 360 MG/200 ML PLAST..BAG 16.667 MG IV (16:56)
[2023-11-04] MEDS: CEFTRIAXONE 1,000 MG in 0.9 % SODIUM CHLORIDE 50 ML 100 MG IV (17:00)
--- NOTE | 2023-11-04 22:20 | PC.NURSE ---
220 Patient transfer by [facility] to [facility] room 3217. Patient remains on Amiodarone drip at 0.5 mg/min or 16.7 cc/hr via pump for transport. Report then called to [facility] for room 3217 to Daphney CARDENAS at [phone]. Patient report given and all questions answered.
== END 2023-11-04 22:05 | disposition short-term general hospital (02) | DRG 139 ==
LOC: ER 17:46 → ICU 11-03 06:04
PROVIDERS: Nurse Practitioner; Physician Assistant; Admitting Provider Internal Medicine; Emergency Provider Emergency Medicine; Visit Provider Internal Medicine
DX: J18.9 Pneumonia, unspecified organism (principal); I48.91 Unspecified atrial fibrillation; J96.01 Acute respiratory failure with hypoxia; I50.23 Acute on chronic systolic (congestive) heart failure; C34.90 Malignant neoplasm of unspecified part of unspecified bronchus or lung; E86.0 Dehydration; E87.1 Hypo-osmolality and hyponatremia; E83.42 Hypomagnesemia; E66.9 Obesity, unspecified; Z68.39 Body mass index [BMI] 39.0-39.9, adult; F11.91 Opioid use, unspecified, in remission; D84.821 Immunodeficiency due to drugs; T45.1X5A Adverse effect of antineoplastic and immunosuppressive drugs, initial encounter; Z79.60 Long term (current) use of unspecified immunomodulators and immunosuppressants; Z79.01 Long term (current) use of anticoagulants; Z79.899 Other long term (current) drug therapy
CPT/HCPCS: 36415; 36591; 71045; 71260; 80053; 83605; 83735; 83880; 84484; 85007; 85025; 85027; 87040; 87070; 93005; 93306; 94761; 96365; 96366; 96367; 96368; 96375; 96376; 99285; 0202U; G0378; J0283; J0456; J0696; J1160; J1885; J1940; J2405; J3475; Q0177; Q9967

== ENCOUNTER 2024-04-11 11:17 | Outpatient (OUT) | payer OTHER, SELFPAY | END 2024-04-11 11:18 | disposition home or self-care (01) | LOC: RAD 11:20 | PROVIDERS: Visit Provider Internal Medicine Cardiovascular Disease | DX: M79.604 Pain in right leg (principal) | CPT/HCPCS: 93971 ==

== ENCOUNTER 2024-06-25 09:50 | Outpatient (OUT) | payer OTHER, SELFPAY ==
--- NOTE | 2024-06-25 10:00 | CA_ITS ---
Patient Name: EVAN JULIEN MR#: [id number] : 1980 Exam Date: 06/25/2024 Ordering Doctor: BARI COLÓN ECHOCARDIOGRAM REPORT PROCEDURE: CA ECHO DOPPLER COMPLETE INDICATIONS: Heart failure with reduced ejection fraction, stage IV lung cancer - chemoradiation, leadless pacemaker [employer] MICRA, h/o ablation, hypertension COMPARISON: None. DESCRIPTION: COMPLETE ECHOCARDIOGRAM Real-time transthoracic echocardiography with 2D, M-mode, spectral and color flow Doppler performed. QUALITY: Technical quality was good. LEFT VENTRICLE: Normal chamber size. Normal left ventricular wall thickness. Moderately reduced left ventricle systolic function, abnormal septal motion probably due to paced rhythm, EF 35% DIASTOLIC: Unable to evaluate diastolic function due to paced rhythm ATRIAL SEPTUM: Visually appears intact. LEFT ATRIUM: Mild dilatation. RIGHT ATRIUM: Normal chamber size. RIGHT VENTRICLE: Normal chamber size. Normal systolic function TRICUSPID VALVE: Normal mobility and thickness. No stenosis with no regurgitation. MITRAL VALVE: Normal mobility and thickness. No evidence of mitral valve stenosis. There is no mitral annular calcification. Trivial mitral regurgitation. AORTIC VALVE: Normal trileaflet appearance. No visible sclerosis. Normal leaflet mobility. No evidence of aortic valve stenosis. No aortic regurgitation. AORTIC ROOT: Normal diameter and appearance. PULMONIC VALVE: Normal thickness and mobility. No stenosis. No regurgitation. PERICARDIUM: No evidence of pericardial effusion. IVC: Collapes with inspirations. IVC is normal in size. PLEURA: CONCLUSION: Moderately reduced left ventricle systolic function, abnormal septal motion probably due to paced rhythm, ejection fraction 35% Unable to evaluate left ventricular diastolic function due to paced rhythm Normal right ventricle size and systolic function No significant valvular abnormalities Adult Echocardiography Procedure Report Left Ventricle LVEDD (3.7 - 5.6 cm): 5.78 cm LVESD (2.2 - 4.0 cm): 3.54 cm LVIVS thickness (0.6 - 1.2 cm): 1.00 cm LVPW thickness (0.5 - 1.0 cm): 0.97 cm e': 0.14 m/s E - e': 6.18 LVOT Max Gradient: 2.13 mm[Hg] LVOT Area (cm2): 0.73 m/s Peak Velocity (LVOT): 0.73 m/s Mean Velocity (LVOT): 0.51 m/s LVOT Diameter 2.55 cm Left Atrium LA Volume Index (2D A2C): 36.43 ml/m2 Left Atrium Systolic Dimension: 4.57 cm Mitral Valve MV E to A Ratio: 2.64 Mitral Valve A-Wave Peak Velocity: 0.33 m/s Mitral Valve E-Wave Peak Velocity: 0.86 m/s Right Ventricle Aorta AO Root Diam: 3.62 cm Aortic Valve AoV Area (Peak Beltran): 3.50 cm2, 3.50 cm2 AoV Area (VTI): 3.02 cm2, 3.02 cm2 Peak Velocity(Antegrade Flow): 1.07 m/s Peak Gradient(Antegrade Flow): 4.56 mm[Hg] Mean Velocity(Antegrade Flow): 0.75 m/s Mean Gradient(Antegrade Flow): 2.60 mm[Hg] Velocity Time Integral: 21.23 cm Tricuspid Valve Pulmonic Valve Mean Gradient: 1.86 mm[Hg] Mean Velocity: 0.64 m/s Peak Velocity: 0.94 m/s, 0.94 m/s Peak Gradient: 3.54 mm[Hg], 3.54 mm[Hg] Right Atrium Right Atrium Systolic Pressure: 54.34 ml, 54.34 ml Dictated by: Shemar Schafer MD on 06/25/2024 at 17:16 Approved by: Shemar Schafer MD on 06/25/2024 at 17:33
--- NOTE | 2024-06-25 10:32 | XR_ITS ---
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 Presumed mitral clip is in place. Fibrotic/interstitial changes predominantly involving the right upper lobe with likely underlying loculated pleural effusion. No consolidation pneumothorax or free air. XR/XR chest 2V IMPRESSION: FIBROTIC/INTERSTITIAL CHANGES, PREDOMINANTLY INVOLVING THE RIGHT UPPER LOBE WITH LIKELY UNDERLYING LOCULATED PLEURAL EFFUSION. Impression dictated by: Patel Joyce Jr. DBrianneOBrianne 06/25/2024 12:59 PM Dictation Location: [place] [address] Electronically authenticated by: [id number] Y Date: 06/25/2024 12:59
[2024-06-25 11:36] LABS: Alanine Aminotransferase 17 U/L (16-63); Albumin Globulin Ratio 0.9; Albumin Level 3.2 g/dL (3.4-5.0); Alkaline Phosphatase 52 U/L (46-116); Aspartate Amino Transferase 14 U/L (15-37); Bilirubin Direct 0.1 mg/dL (0.0-0.2); Bilirubin Total 0.5 mg/dL (0.2-1.0); Globulin 3.7 g/dL; Thyroid Stimulating Hormone <0.007 uIU/mL (0.358-3.740); Total Protein 6.9 g/dL (6.4-8.2)
[2024-06-25 11:56] LABS: Free T4 1.64 ng/dL (0.76-1.46)
== END 2024-06-25 09:51 | disposition home or self-care (01) ==
LOC: CARD 09:53
DX: I50.22 Chronic systolic (congestive) heart failure (principal); Z79.899 Other long term (current) drug therapy
CPT/HCPCS: 36415; 71046; 80076; 84439; 84443; 93306; 93356

== ENCOUNTER 2024-09-10 23:47 | Inpatient (IN) | payer OTHER, SELFPAY ==
--- OUTSIDE RECORDS SUMMARY | 2024-08-29 17:46 | XMS_ITS | Encounter Summary ---
Author Organization [facility] Address [id number] [place] [address] Care Team Providers Care Pediatric Immunologist Name Role Phone Agusto Chambers DO Primary Care Provider [phone] Reason for Referral * Misc (Routine) - Pending Review Specialty Diagnoses / Procedures Referred By Contac t Referred To Contact Diagnoses Malignant neoplasm of lung, unspecified laterality, unspecified part of lung ([facility]) Procedures Oxygen Therapy Oxygen Therapy Julianne Morales APRN-CNP [address] [place] [address] Phone: tel: fax: Referral ID Status Reason Start Date Expiration Date V isits Requested Visits Authorized [id number] Pending Review 08/30/2024 08/30/2025 1 1 * Misc (Routine) - Pending Review Specialty Diagnoses / Procedures Referred By Contac t Referred To Contact Procedures Discharge Follow-Up Julianne Morales APRN-CNP [address] [place] [address] Phone: tel: fax: Referral ID Status Reason Start Date Expiration Date V isits Requested Visits Authorized [id number] Pending Review 08/30/2024 08/30/2025 1 1 * Misc (Routine) - Pending Review Specialty Diagnoses / Procedures Referred By Contac t Referred To Contact Diagnoses Malignant neoplasm of lung, unspecified laterality, unspecified part of lung (CMS-HCC) Procedures Follow-up with primary care provider Julianne Morales APRN-CNP [address] [place] [address] Phone: tel: fax: Referral ID Status Reason Start Date Expiration Date V isits Requested Visits Authorized [id number] Pending Review 08/30/2024 08/30/2025 1 1 * Misc (Routine) - Pending Review Specialty Diagnoses / Procedures Referred By Contac t Referred To Contact Procedures Adult diet Julianne Morales APRN-CNP [address] [place] [address] Phone: tel: fax: Referral ID Status Reason Start Date Expiration Date V isits Requested Visits Authorized [id number] Pending Review 08/30/2024 08/30/2025 1 1 * Misc (Routine) - Pending Review Specialty Diagnoses / Procedures Referred By Contac t Referred To Contact Diagnoses Malignant neoplasm of lung, unspecified laterality, unspecified part of lung (CMS-HCC) Hypoxemia Metastatic non-small cell lung cancer (CMS-HCC) Procedures Walker standard Julianne Morales APRN-CNP [address] [place] [address] Phone: tel: fax: Referral ID Status Reason Start Date Expiration Date V isits Requested Visits Authorized [id number] Pending Review 08/30/2024 08/30/2025 1 1 Reason for Visit * Reason Comments Shortness of Breath Pt stated he is coug angel up blood for 3 days and having increased shortness of breath last chemo tx was last Tuesday * Auth/Cert Specialty Diagnoses / Procedures Referred By Patsy t Referred To Contact Diagnoses Shortness of breath Malignant neoplasm of lung, unspecified laterality, unspecified part of lung ([facility]) [facility] [address] [place] [address] Phone: tel: fax: Referral ID Status Reason Start Date Expiration Date Visits Re quested Visits Authorized [id number] 1 1 Encounter Details Date Type Department Care Team (Latest Contact Info) Description 08/29/2024 5:46 PM EDT - 08/30/2024 4:15 PM EDT Hospital Encounter [facility] Acute [facility] [address] [place] [id number] Harrison Staples MD [address] [place] [address] Amilcar Talavear MD [address] , [facility] [address] [place] [address] Malignant neoplasm of lung, unspecified laterality, unspecified part of lung ([facility]) (Primary Dx); Hypoxemia; Metastatic non-small cell lung cancer ([facility]) Discharge Disposition: Home Social History Tobacco Use Types Packs/Day Years Used Date Smoking Tobacco: Former Cigarettes Smokeless Tobacco: Never Alcohol Use Standard Drinks/Week Comments No 0 (1 standard drink = 0.6 oz pur e alcohol) Overall Financial Resource Strain (CARDIA) Answe r Date Recorded How hard is it for you to pa y for the very basics like food, housing, medical care, and heating? Somewhat hard 08/30/2024 PHQ-2 Answer Date Recorded Total Score 4 06/14/2024 PRAPARE - Transportation Answer Date Re corded In the past 12 months, has l ack of transportation kept you from medical appointments or from getting medications? No 08/21 In the past 12 months, has l ack of transportation kept you from meetings, work, or from getting things needed for daily living? No 08/30/2024 Housing Instability Answer Date Recorde d Are you worried or concerned that in the next two months you may not have stable housing that you own, rent or stay in as a part of a household? No 08/30/2024 Childcare Answer Date Recorded Childcare Unknown 08/02/2018 Employment Answer Date Recorded Employment Unknown 08/02/2018 Hunger Screening Answer Date Recorded Within the past 12 months we worried whether our food would run out before we got money to buy more. Sometimes True 025 Within the past 12 months th e food we bought just didn't last and we didn't have money to get more. Sometimes True 08/30/2024 Purpose - Life Answer Date Recorded Purpose and direction in life Unknown Sex and Gender Information Value Date Recorded Sex Assigned at Not on file Legal Sex Male 12:03 PM EDT Gender Identity Not on file Sexual Orientation Not on file documented as of this encounter Last Filed Vital Signs Vital Sign Reading Time Taken Comments Blood Pressure 117/60 08/30/2024 1:10 PM EDT Pulse 81 08/30/2024 1:10 PM EDT Temperature 35.7 C (96.2 F) 08/30/2024 1:10 PM EDT Respiratory Rate 20 08/30/2024 1:10 PM EDT Oxygen Saturation 91% 08/30/2024 1:10 PM EDT Inhaled Oxygen Concentration - - Weight 113.7 kg (250 lb 9.6 oz) 08/30/2024 5:00 AM EDT Height 185.4 cm (6' 1 ) 08/29/2024 5:54 PM EDT Body Mass Index 33.06 08/29/2024 5:54 PM EDT documented in this encounter Functional Status documented as of this encounter Discharge Instructions * Attachments The following attachments cannot be sent through Care Everywhere. 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 18 g 11 08/14/2024 amiodarone (PACERONE) 200 mg tablet Take 1 tablet (200 mg total) by mouth in the morning. apixaban (ELIQUIS) 5 mg tabletIndications: Atrial fibrillation ([facility]) Take 1 tablet (5 mg total) by mouth in the morning and 1 tablet (5 mg total) before bedtime. 60 tablet 11 07/05/2022 buprenorphine-nalo xone (SUBOXONE) 8-2 mg per SL tablet Place 1 tablet under the tongue in the morning and 1 tablet before bedtime. dapagliflozin propanediol (FARXIGA) 10 mg tablet Take 1 tablet (10 mg total) by mouth in the morning. guaiFENesin (MUCINEX) 600 mg tablet extended release 12hr Take 1 tablet (600 mg total) by mouth every 12 (twelve) hours. 60 tablet 1 07/20/2024 losartan (COZAAR) 25 mg tablet Take 1 tablet (25 mg total) by mouth in the morning. metoprolol tartrate (LOPRESSOR) 100 mg tablet Take 1 tablet (100 mg total) by mouth in the morning. multivitamin (MEN'S MULTI-VITAMIN) tablet Take 1 tablet by mouth in the morning. spironolactone (ALDACTONE) 50 mg tablet Take 1 tablet (50 mg total) by mouth in the morning. 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 60 tablet 2 06/20/2024 5 documented as of this encounter Progress Notes * Carmelo Mcpherson RN - 08/30/2024 1:55 PM EDT Food insecurity bag given to patient at bedside. * JUAN Holcomb - 08/30/2024 12:49 PM EDT I certify that based on the findings of this evaluation, which included but was not limited to the [id number] requirements, the following home medical equipment is medically necessary. The patient was seen and evaluated at bedside 08/30/24 and he requires home O2. I have reviewed the oxygen evaluation and it demonstrated need for 2 L/NC at rest and 3 L/NC with ambulation due to chronic lung disease. Home oxygen will improve the patients condition and is required in order to maintain oxygen saturations above 90%. Patient is mobile within the home. JUAN Holcomb 08/30/24 1249 * Lala Wilson RCP - 08/30/2024 12:34 PM EDT 08/30/24 1206 Home Oxygen Qualification - Resting Method *Complete within 48 Hrs of Discharge SpO2 On Room Air At Rest 87 % Amount Of O2 Applied At Rest To Keep SpO2 >88% 2 L/min SpO2 On Applied O2 At Rest 91 % Home Oxygen Qualification - Exercise/Ambulation Method SpO2 On Room Air With Exercise/Ambulation 87 % Amount Of O2 Applied During Exercise/Ambulation To Keep SpO2 >88% 3 L/min SpO2 On Applied O2 With Exercise/Ambulation 92 % * JUAN Holcomb - 08/30/2024 11:45 AM EDT I certify that based on the findings of this evaluation, which included but was not limited to the toxf-ao-[id number] requirements, the following home medical equipment is medically necessary. The patient was seen and evaluated at bedside 08/30/24 and he requires a walker. The patient has a mobility limitation that significantly impairs their ability to participate in one or more mobility related activities of daily living (MRADL) in their home. These mobility limitations prevent the patient from accomplishing MRADL's independently; place the patient at a heightened risk of morbidity secondary to the attempts to perform the MRADL, and pose a safety risk; and prevent the patient from completing the MRADL's within a reasonable time frame. The patient is able to safely use the walker. The functional mobility deficit can be sufficiently resolved by use of a walker. The safe use of a cane was ruled out. JUAN Holcomb 08/30/24 1145 * Marine Marley RCP - 08/30/2024 1:00 AM EDT 08/30/24 0100 Vital Signs Pulse 80 Heart Rate Source Monitor Resp 24 SpO2 96 % O2 Device Nasal cannula O2 Flow Rate (L/min) 3 L/min (weaned to 2L) Patient Position Sitting Respiratory Assessment Assessment Type Pre-treatment Level of Consciousness Alert Respiratory Pattern Regular Chest Assessment Chest expansion asymmetrical Bilateral Breath Sounds Diminished;Expiratory wheezes Location Specific No Inhalation Therapy Delivery Source Oxygen Device Nebulizer Duration (Minutes) 8 Position Sitting documented in this encounter H&P Notes * Amilcar Talavera MD - 08/30/2024 9:00 AM EDT Images from the original note were not included. [facility] [address] [place] [phone] Hospital Medicine History & Physical Patient: Arvin Rasmussen Date of : 1980 Room: PCP: Agusto Chambers DO Admission date: 08/29/2024 5:46 PM Encounter date: 08/30/24 Hospital Day: 2 SUBJECTIVE Arvin Rasmussen is a 44 y.o. male who presents with increasing shortness of breath. Patient does have history of small-cell lung cancer, follows with Oncology, is on chemo last chemo session was on Tuesday. Patient noted a couple episodes of bloody sputum. He was placed on 2 L oxygen does not normally wear oxygen at home. Has a history of anxiety, hypertension as well. Smoker, 1 pack a day. Chest negative for pulmonary embolism, concern for disease progression with increased number of nowinnumerable solid pulmonary nodules and development of multifocal ground-glass opacities throughoutthe lungs and a large and a presumed primary right hilar soft tissue mass compared to PET scan on 06/01/2024. CBC revealed hemoglobin 11.1, platelets 132. D-dimer 963. CMP revealed glucose 133 and ALT 46. Magnesium 1.6. Procalcitonin 0.19. Lactate negative. Admitted for malignant neoplasm of lung, hypoxia. Allergies: Celecoxib, Metaxalone, and Other Prior to Admission medications Medication Sig Start Date End Date Taking? Authorizing Provider albuterol (PROVENTIL HFA;VENTOLIN HFA) 90 mcg/actuation inhaler Inhale 2 puffs every 6 (six) hours as needed for wheezing. 08/14/24 Yes Addison Cox MD ALPRAZolam (XANAX) 1 mg tablet TAKE 1 TABLET BY MOUTH EVERY MORNING AND 1 TABLET AT BEDTIME 08/02/24Yes Bryon Azevedo MD amiodarone (PACERONE) 200 mg tablet Take 1 tablet (200 mg total) by mouth in the morning. Yes Not In System Ref Prov apixaban (ELIQUIS) 5 mg tablet Take 1 tablet (5 mg total) by mouth in the morning and 1 tablet (5 mg total) before bedtime. 07/05/22 Yes JUAN Rubin dapagliflozin propanediol (FARXIGA) 10 mg tablet Take 1 tablet (10 mg total) by mouth in the morning. Yes Not In System Ref Prov LORazepam (ATIVAN) 1 mg tablet TAKE 1 TABLET BY MOUTH EVERY 8 HOURS NEEDED FOR ANXIETY (NAUSEA AND VOMITING) FOR UP TO 15 DAYS 08/02/24 Yes Bryon Azevedo MD losartan (COZAAR) 25 mg tablet Take 1 tablet (25 mg total) by mouth in the morning. Yes Not In System Ref Prov metoprolol tartrate (LOPRESSOR) 100 mg tablet Take 1 tablet (100 mg total) by mouth in the morning.Yes Not In System Ref Prov multivitamin (MEN'S MULTI-VITAMIN) tablet Take 1 tablet by mouth in the morning. Yes Not In System Ref Prov ondansetron (ZOFRAN) 8 mg tablet Starting on day 3, take 1 tablet by mouth twice daily as needed for severe nausea or vomiting. 06/20/24 Yes Bryon Azevedo MD prochlorperazine (COMPAZINE) 10 mg tablet Take 1 tablet by mouth every 6 hours as needed for mild nausea or vomiting. 06/20/24 Yes Bryon Azevedo MD albuterol (PROVENTIL HFA;VENTOLIN HFA) 90 mcg/actuation inhaler Inhale 2 puffs every 6 (six) hours as needed for wheezing. Patient not taking: Reported on 08/21/2024 08/14/24 Addison Cox MD buprenorphine-naloxone (SUBOXONE) 8-2 mg per SL tablet Place 1 tablet under the tongue in the morning and 1 tablet before bedtime. Not In System Ref Prov dexAMETHasone (DECADRON) 4 mg tablet Take 2 tablets (8 mg) by mouth once daily on days 2, 3 and 4. Patient not taking: Reported on 08/30/2024 06/20/24 Bryon Azevedo MD doxycycline (VIBRA-TABS) 100 mg tablet Take 1 tablet (100 mg total) by mouth in the morning and 1 tablet (100 mg total) before bedtime. Patient not taking: Reported on 08/30/2024 06/28/24 Not In System Ref Prov guaiFENesin (MUCINEX) 600 mg tablet extended release 12hr Take 1 tablet (600 mg total) by mouth every 12 (twelve) hours. Patient not taking: Reported on 08/30/2024 07/20/24 Bryon Azevedo MD naproxen sodium (ALEVE) 220 mg tablet Take 2 tablets (440 mg total) by mouth in the morning and 2 tablets (440 mg total) in the evening. Take with meals. Patient not taking: Reported on 08/30/2024 Not In System Ref Prov spironolactone (ALDACTONE) 50 mg tablet Take 1 tablet (50 mg total) by mouth in the morning. Patient not taking: Reported on 08/30/2024 Not In System Ref Prov Code Status: Full Code Past Medical History: Patient has a past medical history of Anxiety, Hypertension, Lung cancer ([facility]), Shortness of breath, Sleep apnea, and Visual impairment. Past Surgical History: Patient has a past surgical history that includes Uvulopalatopharyngoplasty (N/A, 02/08/2017); Tonsillectomy; Carpal tunnel release (Right, 09/25/2019); Carpal tunnel release (Left, 11/20/2019); Portacath placement; and Cardiac pacemaker placement (03/14/2024). Family History: Patient's family history includes Heart disease in his father and mother; Hypertension in his mother. Social History: Patient reports that he has quit smoking. His smoking use included cigarettes. He has never used smokeless tobacco. He reports current drug use. Drug: Marijuana. He reports that he does not drink alcohol. Review of Systems Constitutional: Negative for chills and fever. HENT: Negative for ear pain and sore throat. Eyes: Negative for pain and visual disturbance. Respiratory: Positive for shortness of breath. Negative for cough. Cardiovascular: Negative for chest pain and palpitations. Gastrointestinal: Negative for abdominal pain and vomiting. Genitourinary: Negative for dysuria and hematuria. Musculoskeletal: Negative for arthralgias and back pain. Skin: Negative for color change and rash. Neurological: Negative for seizures and syncope. All other systems reviewed and are negative. OBJECTIVE BP 111/62 Pulse 81 Temp (!) 34.3 °C (93.8 °F) (Oral) Resp 18 Ht 185.4 cm (6' 1 ) Wt 113.7 kg (250 lb 9.6 oz) SpO2 92% BMI 33.06 kg/m² Temp: [30 °C (86 °F)-36.9 °C (98.5 °F)] 34.3 °C (93.8 °F) Pulse: [80-84] 81 Resp: [14-24] 18 BP: (92-123)/(53-87) 111/62 SpO2: [87 %-96 %] 92 % O2 Device: None (Room air) O2 Flow Rate (L/min): [2 L/min-3 L/min] 2 L/min Intake/Output Summary (Last 24 hours) at 08/30/2024 1024 Last data filed at 08/30/2024 0900 Gross per 24 hour Intake 335.31 ml Output -- Net 335.31 ml Physical Exam Constitutional: General: He is not in acute distress. Appearance: He is well-developed. HENT: Head: Normocephalic. Right Ear: External ear normal. Left Ear: External ear normal. Nose: Nose normal. Eyes: Conjunctiva/sclera: Conjunctivae normal. Pupils: Pupils are equal, round, and reactive to light. Cardiovascular: Rate and Rhythm: Normal rate and regular rhythm. Heart sounds: Normal heart sounds. No murmur heard. Pulmonary: Effort: Pulmonary effort is normal. Breath sounds: Examination of the right-lower field reveals decreased breath sounds. Examination ofthe left-lower field reveals decreased breath sounds. Decreased breath sounds present. No wheezing. Abdominal: General: Bowel sounds are normal. Palpations: Abdomen is soft. There is no mass. Tenderness: There is no abdominal tenderness. Musculoskeletal: General: Normal range of motion. Cervical back: Normal range of motion. Lymphadenopathy: Cervical: No cervical adenopathy. Skin: General: Skin is warm and dry. Findings: No rash. Neurological: Mental Status: He is alert. Cranial Nerves: No cranial nerve deficit. Motor: Weakness present. Coordination: Coordination normal. Gait: Gait abnormal. Psychiatric: Behavior: Behavior normal. Medications Scheduled: amiodarone, 200 mg, oral, Daily apixaban, 5 mg, oral, BID dapagliflozin propanediol, 10 mg, oral, Daily dextromethorphan-guaiFENesin, 1 tablet, oral, Q12H HAILEY ipratropium-albuteroL, 3 mL, nebulization, Q6H methylPREDNISolone sodium succinate, 60 mg, intravenous, Q12H HAILEY Infusions: As Needed: acetaminophen ALPRAZolam alum-mag hydroxide-simeth magnesium sulfate magnesium sulfate ondansetron potassium chloride OR potassium chloride OR potassium chloride IV (Adult) sennosides-docusate sodium sodium chloride Allergies: Celecoxib, Metaxalone, and Other Labs Recent Results (from the past 24 hours) CBC auto differential Collection Time: 08/29/24 6:11 PM Result Value Ref Range WBC 4.3 4 - 11 x10E9/L RBC Count 3.88 (L) 4.1 - 5.7 X10E12/L Hemoglobin 11.1 (L) 13 - 17 g/dL Hematocrit 32.4 (L) 39 - 50 % MCV 84 80 - 100 fL MCH 28.7 27 - 34 pg MCHC 34.4 32 - 36 g/dL RDW 19.0 (H) 11.5 - 15 % Platelet Count 132 (L) 150 - 450 X10E9/L MPV 7.0 7 - 12 fL Neutrophils % 72.6 % Lymphocytes % 8.2 % Monocytes % 18.1 % Eosinophils % 0.7 % Basophils % 0.4 % Neutrophils Absolute (A) 3.1 1.5 - 6.6 10*3/uL Lymphocytes Absolute 0.4 (L) 1.0 - 3.5 10*3/uL Monocytes Absolute 0.8 0.0 - 0.9 10*3/uL Eosinophils Absolute 0.0 0.0 - 0.4 10*3/uL Basophils Absolute 0.0 0.0 - 0.2 10*3/uL Differential Type AUTOMATED DIFFERENTIAL Comprehensive metabolic panel Collection Time: 08/29/24 6:11 PM Result Value Ref Range SODIUM 134 134 - 146 mmol/L POTASSIUM 3.6 3.5 - 5.0 mmol/L CHLORIDE 102 98 - 109 mmol/L CARBON DIOXIDE 23 22 - 32 mmol/L ANION GAP 9 5 - 15 mmol/L BLOOD UREA NITROGEN 8 5 - 23 mg/dL CREATININE 0.88 0.70 - 1.20 mg/dL GLUCOSE 133 (H) 65 - 99 mg/dL CALCIUM 9.3 8.5 - 10.5 mg/dL TOTAL PROTEIN 7.0 6.0 - 8.0 g/dL ALBUMIN 3.4 3.2 - 5.3 g/dL ALKALINE PHOSPHATASE 80 39 - 130 U/L AST 37 <=41 U/L ALT 46 (H) <=40 U/L BILIRUBIN,TOTAL 1.0 0.3 - 1.2 mg/dL EGFR Non-Race Dependent >90 >=60 ml/min/1.73sq.m D-Dimer Collection Time: 08/29/24 6:11 PM Result Value Ref Range D DIMER 963 (H) 1 - 255 ug/mL Magnesium Collection Time: 08/29/24 6:11 PM Result Value Ref Range MAGNESIUM 1.6 (L) 1.8 - 2.6 mg/dL Troponin I, High Sensitivity Collection Time: 08/29/24 6:11 PM Narrative The following orders were created for panel order Troponin I, High Sensitivity. Procedure Abnormality Status --------- ------ Troponin I, High Sensiti...[[id number]] Normal Final result Troponin I, High Sensiti...[[id number]] Normal Final result Please view results for these tests on the individual orders. Troponin I, High Sensitivity 0 Hour Collection Time: 08/29/24 6:11 PM Result Value Ref Range TROPONIN I, HIGH SENSITIVITY <2 <21 ng/L Protime & INR Collection Time: 08/29/24 6:11 PM Result Value Ref Range PROTIME 20.9 (H) 9.8 - 13.2 sec INR 1.8 (H) 0.9 - 1.2 APTT Collection Time: 08/29/24 6:11 PM Result Value Ref Range APTT 32 26 - 37 sec Troponin I, High Sensitivity 1 Hour Collection Time: 08/29/24 7:13 PM Result Value Ref Range TROPONIN I, HIGH SENSITIVITY <2 <21 ng/L Procalcitonin Collection Time: 08/29/24 10:08 PM Result Value Ref Range PROCALCITONIN 0.19 (H) <0.05 ng/mL Narrative <0.50 ng/mL - Low risk of severe sepsis and/or septic shock. <2.00 ng/mL - Recommend retesting within 6-24 hours. >2.00 ng/mL - High risk of sepsis and/or septic shock. Lactate w/ Reflex Collection Time: 08/29/24 10:08 PM Result Value Ref Range LACTATE W/REFLEX 1.5 0.4 - 2.0 mmol/L Narrative Result did not trigger repeat Lactate, re-order if needed. Comprehensive metabolic panel Collection Time: 08/30/24 5:01 AM Result Value Ref Range SODIUM 136 134 - 146 mmol/L POTASSIUM 3.7 3.5 - 5.0 mmol/L CHLORIDE 103 98 - 109 mmol/L CARBON DIOXIDE 23 22 - 32 mmol/L ANION GAP 10 5 - 15 mmol/L BLOOD UREA NITROGEN 7 5 - 23 mg/dL CREATININE 0.70 0.70 - 1.20 mg/dL GLUCOSE 127 (H) 65 - 99 mg/dL CALCIUM 9.4 8.5 - 10.5 mg/dL TOTAL PROTEIN 7.1 6.0 - 8.0 g/dL ALBUMIN 3.3 3.2 - 5.3 g/dL ALKALINE PHOSPHATASE 82 39 - 130 U/L AST 33 <=41 U/L ALT 42 (H) <=40 U/L BILIRUBIN,TOTAL 0.9 0.3 - 1.2 mg/dL EGFR Non-Race Dependent >90 >=60 ml/min/1.73sq.m Magnesium Collection Time: 08/30/24 5:01 AM Result Value Ref Range MAGNESIUM 1.9 1.8 - 2.6 mg/dL CBC auto differential Collection Time: 08/30/24 5:01 AM Result Value Ref Range WBC 5.0 4 - 11 x10E9/L RBC Count 3.85 (L) 4.1 - 5.7 X10E12/L Hemoglobin 11.1 (L) 13 - 17 g/dL Hematocrit 32.2 (L) 39 - 50 % MCV 84 80 - 100 fL MCH 28.8 27 - 34 pg MCHC 34.4 32 - 36 g/dL RDW 18.8 (H) 11.5 - 15 % Platelet Count 137 (L) 150 - 450 X10E9/L MPV 7.5 7 - 12 fL Neutrophils % 89.4 % Lymphocytes % 4.9 % Monocytes % 5.3 % Eosinophils % 0.2 % Basophils % 0.2 % Neutrophils Absolute (A) 4.4 1.5 - 6.6 10*3/uL Lymphocytes Absolute 0.2 (L) 1.0 - 3.5 10*3/uL Monocytes Absolute 0.3 0.0 - 0.9 10*3/uL Eosinophils Absolute 0.0 0.0 - 0.4 10*3/uL Basophils Absolute 0.0 0.0 - 0.2 10*3/uL Differential Type AUTOMATED DIFFERENTIAL Radiology CT angiogram chest Result Date: 08/29/2024 Narrative: CT CTA CHEST: 08/29/2024 PROVIDED HISTORY: * 44 years old Male * sob, elevated dimer COMPARISON: CT chest 12/23/2023, PET/CT 06/01/2024 TECHNIQUE: 1. Contrast-enhanced CT of the chest with thin section, early arterial phase images according to the pulmonary embolism protocol. Patient received nonionic contrast. 3-D maximum intensity projection images generated and reviewed under concurrentphysician supervision. Automated exposure control was utilized. 2. All CT scans at this facility use dose modulation, iterative reconstruction, and/or weight based dosing when appropriate to reduce radiation dose to as low as reasonably achievable. FINDINGS: No filling defects in the pulmonary arteries to suggest pulmonary embolism. Main pulmonary artery caliber is up to 3.2 cm. Nonaneurysmal thoracic aorta. Left chest wall Zvhcws-u-Xlbs catheter with tip at level of cavoatrial junction. Heart is not enlarged. No significant pericardial effusion. No significant coronary calcifications. Right hilar soft tissue mass measuring up to 6.3 cm with narrowing of the traversing right pulmonary arterial tree and traversing right pulmonary airway. Development of innumerable nodular and groundglass pulmonary opacities throughout the lungs, increased from PET/CT of 06/01/2024. Small/moderate right pleural effusion. No significant left pleural effusion. Mediastinal adenopathy, including right precarinal lymph nodes measuring up to 14 mm short axis, extensive subcarinal lymph node areas, prevascular lymph nodes measuring up to 10 mm short axis. No suspicious osseous abnormality. Degenerative changes of the spine. No acute process in the visualized upper abdomen. IMPRESSION: 1. No evidence of pulmonary embolism. 2. Concern for disease progression with increased number of now innumerable solid p ulmonary nodules and development of multifocal groundglass opacities throughout the lungs and enlargement of presumed primary right hilar soft tissue mass compared to PET/CT of 06/01/2024. Finalized by Theron Guevara MD on 08/29/2024 8:21 PM HOSPITAL PROBLEM LIST Principal Problem: Malignant neoplasm of lung, unspecified laterality, unspecified part of lung ([facility]) Active Problems: Anxiety Paroxysmal atrial fibrillation ([facility]) Chronic HFrEF (heart failure with reduced ejection fraction) ([place]) ASSESSMENT & PLAN Malignant neoplasm of lung -worsening shortness of breath Follows with Oncology, has a appointment tomorrow No leukocytosis CT chest reveals worsening of known malignant disease, no pulmonary embolism Home oxygen evaluation Mucinex, DuoNebs, Solu-Medrol No leukocytosis Qualified for home 02 Paroxysmal atrial fibrillation Chronic heart failure with reduced ejection fraction Continue amiodarone, Eliquis, Lopressor sales account specialist Afib/flutter and V paced complexes with a rate of 82, prolonged QTC 519. Farxiga Generalized Anxiety Takes Xanax at home P.r.n. Xanax Sepsis suspected, no-not clinically evident at this time. Chart reviewed. Admission orders placed. Home medications reconciled. DVT/VTE prophylaxis: SCD and on DOAC. GI prophylaxis: not indicated. PT/OT to evaluate and treat. DC planning: today, pending home 02 eval. DISCHARGE ASSESSMENT & PLAN Home oxygen ordered Follow up oncology Meds as ordered Pt instructed to follow up with PCP in one week. Instructed to seek medical attention if symptoms persist or worsen or if you develop chest pain or shortness of breath. DISCHARGE INSTRUCTION Disposition: Home Condition: Serious Activity: activity as tolerated Diet: Adult diet Regular Texture Adult diet Follow up: Agusto Chambers DO within 7-14 days. Oncology Labs/Imaging/Pathology: none JUAN Holcomb 08/30/2024 10:24 AM [facility] Internal Medicine 7AM-7PM & 7PM-7AM: EpicChat or page through On-Call Finder. JUAN Holcomb 08/30/24 1251 Physician Attestation I, Amilcar Talavera MD, personally performed a face to face diagnostic evaluation on this patient. I have reviewed the note authored by the advance practice provider including history, review of systems,physical examination,medical decision making and agree with the assessment and plan as written. I have seen and evaluated the patient, I have repeated the null portions of the physical exam and concur with the SALMA findings. I have reviewed all laboratory findings and imaging reports/films. I agree with the plan as noted. documented in this encounter Nursing Notes * Izzy Watkins RN - 08/30/2024 4:34 PM EDT [facility] delivered oxygen concentrator. When patient ready to leave was hooked up to the concentrator and machine said unauthorized battery and would not work. Called [facility] talked to Vane. And she gave me permission to send one of our [facility] concentrators home with patient and Vane will have the oxygendelivered tonight to the patients house. Explained to patient. He verbalized understanding. * Jewel Thompson RN - 08/30/2024 4:15 PM EDT Patient is stable and ready for discharge with a different working concentrator. Patient demonstrated use of O2 and safety and risk. Staff reviewed plan of care tx and meds. Family and patient verbally understand. Discussed pulse Ox snd demonstrated checking SpO2. * Izzy Watkins RN - 08/30/2024 1:43 PM EDT Called Room Service to order go home box and called dietary to inform . documented in this encounter ED Notes * Zakiya Viera APRN-ELVIRA - 08/29/2024 6:00 PM EDT Images from the original note were not included. [facility] - EMERGENCY Pt Name: Arvin Rasmussen Birthdate: 1980 Chief Complaint: Chief Complaint Patient presents with • Shortness of Breath Pt stated he is coughing up blood for 3 days and having increased shortness of breath last txwas last Tuesday History of Present Illness: Arvin Rasmussen 44-year-old male that presents to ED with complaint of shortness of breath, extensive history of small-cell lung cancer. Follows outpatient with Dr. Azevedo from Oncology locally. States she wanted outpatient scans done but could not get him in for some time. He had a few episodes of bloody tinged sputum so he came in to be evaluated. Patient was placed on 2 L of oxygen via nasal cannula on arrival for comfort. States he does not wear oxygen outpatient. Past Medical History: Past Medical History: Diagnosis Date • Anxiety • Hypertension • Lung cancer (CMS-HCC) • Shortness of breath • Sleep apnea • Visual impairment glasses Past Surgical History: Past Surgical History: Procedure Laterality Date • CARDIAC PACEMAKER PLACEMENT 03/14/2024 • PORTACATH PLACEMENT • RELEASE CARPAL TUNNEL Left 11/20/2019 Performed by Shelton Rodriguez Jr., DO at [facility] • RELEASE CARPAL TUNNEL Right 09/25/2019 Performed by Shelton Rodriguez Jr., DO at [facility] • TONSILLECTOMY • UVULOPALATOPHARYNGOPLASTY, BILATERAL INTERMURAL CAUTERY INFERIOR TURBINATES,OUTFRACTURES N/A 02/08/2017 Performed by Shira Patterson MD at [facility] Family History: Family History Problem Relation Age of Onset • Heart disease Mother • Hypertension Mother • Heart disease Father Social History: Social History Socioeconomic History • Marital status: Tobacco Use • Smoking status: Former Current packs/day: 1.00 Types: Cigarettes • Smokeless tobacco: Never Vaping Use • Vaping status: Never Used Substance and Sexual Activity • Alcohol use: No • Drug use: Yes Types: Marijuana Comment: gummies • Sexual activity: Defer Social Drivers of Health Financial Resource Strain: Low Risk (11/30/2023) Received from [facility] Overall Financial Resource Strain (CARDIA) • Difficulty of Paying Living Expenses: Not hard at all Recent Concern: Financial Resource Strain - High Risk (09/09/2023) Overall Financial Resource Strain (CARDIA) • Difficulty of Paying Living Expenses: Hard Food Insecurity: No Food Insecurity (08/29/2024) Hunger Screening • Food Insecurity - Worry: Never True • Food Insecurity - Inability: Never True Transportation Needs: No Transportation Needs (11/30/2023) Received from [facility] Transportation • In the past 12 months, has lack of transportation kept you from medical appointments or from getting medications?: No Physical Activity: Insufficiently Active (11/30/2023) Received from [facility] Exercise Vital Sign • Days of Exercise per Week: 3 days • Minutes of Exercise per Session: 30 min Interpersonal Safety: Unknown (11/30/2023) Received from [facility] Humiliation, Afraid, Rape, and Kick questionnaire • Fear of Current or Ex-Partner: No Housing Instability: Low Risk (11/30/2023) Received from [facility] Housing Stability Vital Sign • In the last 12 months, was there a time when you did not have a steady place to sleep or slept in a skilled nursing (including now)?: No Review of Systems: Review of Systems Physical Exam: ED Triage Vitals [08/29/241753] Temp Heart Rate Resp BP SpO2 36.9 °C (98.5 °F) 81 20 104/64 (!) 87 % Temp Source Heart Rate Source Patient Position BP Location FiO2 (%) Oral Monitor High-fowlers Left arm -- Vitals: 08/29/244 08/29/241754 BP: 104/64 Temp: 36.9 °C (98.5 °F) TempSrc: Oral Pulse: 81 Resp: 20 SpO2: (!) 87% 92% MAP (mmHg): 77 Height: 185.4 cm (6' 1 ) Weight: 122.5 kg (270 lb) Physical Exam Procedure: Procedures Re-evaluation: Re-Evaluation Medical Decision Making Amount and/or Complexity of Data Reviewed Labs: ordered. ECG/medicine tests: ordered. ED Course: Clinical Impressions as of 08/29/242145 Malignant neoplasm of lung, unspecified laterality, unspecified part of lung (CMS-HCC) Hypoxemia . ED Disposition None . Please note that portions of this note were completed with a voice recognition program. Efforts were made to edit the dictations but occasionally words are mis-transcribed. Scarlett Ramsay 08/29/24 1800 JUAN Perez 08/29/24 1809 JUAN Perez 08/30/24 1745 Cosigned by Harrison Staples MD at 09/04/2024 10:18 AM EDT documented in this encounter Miscellaneous Notes * Discharge Planning Note - KAM Nichole - 08/30/2024 12:59 PM EDT Images from the original note were not included. Ongoing Assessment for Discharge Needs Reviewed discharge milestones and patient needs related to discharge plan. Current estimated discharge date of Aug 30, 2024 has been reviewed by treatment team. [facility] sent O2 script, O2 F2F & SPO2 measure along with walker script & F2F to [facility] via [employer] informing pt is DC today & inquiring on deliver time of DME. Ongoing Assessment for Discharge Needs Flowsheet Row Most Recent Value Referral To Community Referrals / Resources Provided Denies needs [food resources provided at oncology appointment] Services Requested Patient expects to be discharged to: home Does the patient wish to have family/friend/caregiver involved in their discharge planning? No, thepatient does not wish to have family/friend/caregiver involved in their discharge planning Discharge Disposition Home Durable Medical Equipment Who is the existing DME Provider? [facility] ) Home Durable Medical Equipment Does the patient need discharge transportation arranged? No DC Planning Complete Discharge Milestones Yes Respiratory Indicator Does the patient currently have home respiratory equipment? No Who is the existing DME Provider? [facility] ([employer]) ([phone]) Will the patient need home respiratory equipment upon discharge? Yes * Plan of Care - Jewel Thompson RN - 08/30/2024 11:15 AM EDT Problem: Safety Goal: Patient will be injury free during hospitalization Description: INTERVENTIONS: 1. Assess patient's risk for falls and implement fall prevention plan of care per policy 2. Provide and maintain a safe environment 3. Proper use of double Identifiers 4. Medication administration using the 5 rights 5. Hand hygiene 6. Specimens are labeled at the bedside 7. Instruct patient/ patient provider service representative about use of safety devices 8. Include patient/ patient provider service representative in decisions related to safety Outcome: Progressing Note: Evaluation of progress towards goal: This patient appropriately uses call light for safety purposes Problem: Knowledge Deficit Goal: Patient/patient provider service representative demonstrates understanding of disease process, treatment plan,medications, and discharge instructions Description: INTERVENTIONS 1. Complete learning assessment and assess knowledge base 2. Provide teaching at level of understanding 3. Provide teaching via preferred learning method(s) Outcome: Progressing Note: Evaluation of progress towards goal: This patient is verbal and aware of his dx, plan of care, tx and meds Problem: Moderate - High Risk Fall Score Description: Richards Fall Score of =/> 25 or indicated by [facility] Assessment Goal: Patient should be free from fall Description: Interventions: 1. [place] to environment 2. Hourly rounds addressing the 4 P's (Pain, Positioning, Possessions, Potty) 3. Clear area of hazards (spills, clutter, electrical cords, unnecessary equipment) 4. Place equipment (bed & TV controls, call light, phone, urinal) within reach 5. Encourage patient to wear glasses and hearing aides as appropriate 6. Maintain bed in lowest position 7. Lock wheels on bed/wheelchair 8. Provide adequate lighting, including night light 9. Assess need for additional bedding, food/fluids, pain med's prior to sleep/routinely 10. Provide gripper slippers or personal non-skid footwear 11. Teach patient and patient provider service representative to maintain environment for safety and engage in all aspects of fall prevention program 12. Remind patient to call for help before getting out of bed 13. Initiate bed/chair/exit alarms supportive devices as appropriate, (chair wedge, no-skid floor mat, raised edge mattress, hip protectors) 14. Locate patient bed assignment for optimal visualization 15. Evaluate and identify Safe Patient Handling Equipment needs 16. Provide supervision when out of bed or chair 17. Utilize gait belt as needed to assist with ambulation 18. Place adaptive equipment (cane, walker) within reach 19. Request patient provider service representative bring adaptive equipment/mobility aids from home or obtain and provide as needed 20. Consult pharmacy regarding effects of med's affecting mobility, cognition, and alternatives 21. Obtain physician order for PT if risk factors associated with mobility are present 22. Obtain physician order for OT as appropriate 23. Utilize diversional activities 24. Educate patient and patient provider service representative how to maintain a safe environment during visitationtimes (notify nurse prior to leaving bedside) 25. Consider appropriateness of medical or non-medical insurance verifier 26. Set up voiding schedule as appropriate (every 2 hours) Outcome: Progressing Note: Evaluation of progress towards goal: Patient remains free from falls Problem: Inadequate Gas Exchange Goal: Patient is adequately oxygenated and ventilation is improved Description: Patient's goal is: INTERVENTIONS 1. Monitor vital signs, oxygen saturation, respiratory status to include rate, depth, effort, lung sounds, mental status, cyanosis, and labs (ABGs) 2. Administer oxygen as indicated 3. Position patient to optimize gas exchange 4. Instruct patient to turn, cough, and deep breathe; encourage incentive spirometer if indicated 5. Collaborate with Respiratory Therapy for inhaled medication and therapeutic adjuncts 6. Assess skin when indicated 7. Coordinate care and interventions to conserve energy 8. Educate and offer resources for tobacco cessation, if indicated Outcome: Progressing Note: Evaluation of progress towards goal: Patient denies SOB and is on O2 at 2 lt Problem: Activity Intolerance/Impaired Mobility Goal: Mobility/activity is maintained at optimum level for patient Description: Patient's goal is: INTERVENTIONS 1. Assess and monitor patient barriers to mobility and need for assistive/adaptive devices 2. Assess patient's emotional response to limitations 3. Collaborate with interdisciplinary teams and initiate plans and interventions as ordered 4. Encourage independent activity per tolerance 5. Maintain proper body alignment 6. Perform active/passive ROM as tolerated/ordered 7. Coordinate activities to conserve energy 8. Reposition patient 9. Ensure adequate rest/sleep time Outcome: Progressing Note: Evaluation of progress towards goal: Patient denies SOB with activity * PT/OT/LICENSED OPTICAL DISPENSER - Izzy A [place]on, OTR/L - 08/30/2024 9:38 AM EDT Occupational Therapy OT Type of Visit: Patient refusal, Discharge from Therapy PT/OT team spoke with RN who reports that patient is independent within the room. Barge Pilot introducedself role and goals of therapy, pt denies current OT needs, reports that he is getting up in the room has no concerns about caring for self at home. Pt expresses frustration over diet ordered due to only having a few months to live - emotional support provided. OT to complete order at at this time, please re consult if change in functional status. 6 Clicks: Daily Activity Putting on and taking off regular lower body clothing?: None (per pt report) Bathing (including washing, rinsing, drying)?: None Toileting, which includes using toilet, bedpan or urinal?: None Putting on and taking off regular upper body clothing?: None Taking care of personal grooming such as brushing teeth?: None Eating meals?: None Scoring Daily Activity Raw Score: 24 CMS G Code Modifier: CH * Discharge Planning Note - Rashmi Campo - 08/30/2024 9:22 AM EDT DISCHARGE PLANNING NOTE Referral sent to [facility] ([place]- P# ; F# ) * Discharge Planning Note - KAM Nichole - 08/30/2024 8:58 AM EDT Images from the original note were not included. Initial Assessment Initial Assessment Flowsheet Row Most Recent Value Patient Information Initial Pre-Hospitalization Assessment Completed? Completed Primary Caregiver Self Support System Children, Spouse/Significant Other, Parent [, son's, mom] Discharge Planning Living Arrangements Spouse/significant other, Adult Child(charu) Assistance Needed none at time of admission, will likely need O2 & walker at DC Type of Residence Private residence Private Residence 1 story Can patient reside on one level? Yes Residence Accessibility Steps into home Number of Steps 5 Home Care Services No Community Agencies Currently Utilized Cancer Services/Center [[facility]] Community Referrals / Resources Provided Denies needs [food resources provided at oncology appointment] Stressors Type of stressor Health issues Explain issues cancer care Income Information Income Information Disability IP Hunger/Food Insecurity Screening Within the past 12 months we worried whether our food would run out before we got money to buy more. Sometimes True Within the past 12 months the food we bought just didn't last and we didn't have money to get more.Sometimes True Hunger Screening Complete? Yes Pt. Eligible for Food / Voucher Yes If Eligible: Received Food Box Other (Comment) [Sticky note chart to give Food Box at [facility]] Warm Handoff Complete Caregiver/Family Member Caregiver/Family Member pt said mom was with him in ED, family is supportive Caregiver/Support System Limitations Patient/Caregiver Goals Patient/Caregiver Goals Home No Needs Home No Needs Caregiver/Family Community Provider Referral Community Provider Referral None Services Requested Patient expects to be discharged to: home Does the patient wish to have family/friend/caregiver involved in their discharge planning? No, thepatient does not wish to have family/friend/caregiver involved in their discharge planning Discharge Disposition Home with self care, Home Durable Medical Equipment Does the patient need discharge transportation arranged? No DC Planning Complete Discharge Milestones Yes Services Requested: Services Requested Patient expects to be discharged to:: home Does the patient wish to have family/friend/caregiver involved in their discharge planning?: No, the patient does not wish to have family/friend/caregiver involved in their discharge planning Discharge Disposition: Home with self care, Home Durable Medical Equipment Does the patient need discharge transportation arranged?: No DC Planning Complete Discharge Milestones: Yes Patient Goals: Patient/Caregiver Goals Patient/Caregiver Goals: Home No Needs Home No Needs: Caregiver/Family Goals home with O2 (pt-stated) Evaluation of progress towards goal: under assessment Additional Comments (If Applicable) Chart reviewed; check writer knows [facility] Introduced self & role of SW, pleasant pt agreeable to conversation; assessment/goals as above. Pt does not endorse alcohol/substance use. Pt has occasional food insecurity; pt has area food resources check writer provided previously. Sticky note on chart to give pt food box at DC. Pt is able to afford home medications. Pt has functioning water, heat, cooling & electric in the home. Negative [place] screen. Pt family assists with transportation. Pt has been independent in/out of the home, feels he will need O2 at DC; discussed mobility, pt said he would benefit from stability of having a walker available. Pt relayed family provide natural supports. Patient's preferred pharmacy is [facility]. PCP verified as Dr. Francesco Chambers. Pt said he was informed in ED that he has had significant disease progression, pt has oncologist appointment tomorrow. Pt said he is still processing this information, support provided. Pt agreeable to any DME in insurance network for home O2 & walker; pt agreeable to utilize [facility]. Opportunity provided to ask questions, pt does not endorse any at this time. Informed check writer available as needed. Update to bedside RN & PLATFORM BUILDER regarding likely need for O2 & walker. Tasked Transition Center to send start referral to [facility] for new O2 & walker; await scripts, F2F & SPO2 measure. Plan to prevent readmission is for pt to follow up with oncologist & PCP, follow DC instructions including medication compliance and to reach out to health care team as needed. Care Navigation will continue to follow patient progress to determine appropriate safe care transition needs. * PT/OT/LICENSED OPTICAL DISPENSER - Zakiya Hernández, PT - 08/30/2024 8:58 AM EDT Physical Therapy PT Type of Visit: (P) Patient refusal, Discharge from Therapy Patient declines therapy needs. Reports independent mobility in the room and no concerns with negotiating his home set-up at discharge. PT to sign off at this time per patient request. Thank you for this referral. * Plan of Care - Atiya Li RN - 08/30/2024 5:56 AM EDT Problem: Pain Goal: Patient goal is pain score less than 4, able to rest, and participant in treatment plan as appropriate Description: INTERVENTIONS: 1. Encourage patient or legal provider service representative to report early pain and ask for pain medicine when needed 2. Assess pain using appropriate pain scale and include the scale used when documenting 3. Administer analgesics based on type and severity of pain and evaluate response within appropriate time frame 4. Implement non-pharmacological measures as appropriate and evaluate response 5. Consider cultural and social influences on pain and pain management 6. Notify LIP if interventions ineffective or patient reports new pain 7. Monitor vital signs including pulse ox, end-tidal CO2 based on pain intervention 8. Reassess pain per policy 9. Teach patient or legal provider service representative interventions for comforting Outcome: Progressing Note: Evaluation of progress towards goal: Pt able to report pain according to 0/10 pain scale. Medicating patient for pain per orders. Problem: Infection Goal: Absence of infection during hospitalization Description: INTERVENTIONS 1. Assess and monitor for signs and symptoms of infection. 2. Monitor lab/diagnostic results. 3. Monitor all insertion sites i.e., indwelling lines, tubes and drains. 4. Monitor endotracheal (as able) and nasal secretions for changes in amount and color. 5. Administer medications as ordered. 6. Instruct and encourage patient and family to use good hand hygiene technique. 7. Identify and instruct patient/patient provider service representative in use of appropriate isolation precautionsfor identified infection/symptoms. 8. Provide and discuss with patient/patient provider service representative on educational MDRO sheet. 9. Encourage and monitor nutritional status daily and consult lusterer if indicated. 10. Implement neutropenic guidelines as needed. Outcome: Progressing Note: Evaluation of progress towards goal: Patient VS WNL, remains afebrile for shift. Continue to monitor. Problem: Discharge Planning Goal: Discharge to post-acute care, other facility, or home with appropriate resources Description: Patient's goal is: INTERVENTIONS 1. Conduct assessment to determine patient/family and health care team treatment goals, and need for post-acute services based on payer coverage, community resources, and patient preferences, and barriers to discharge 2. Coordinate with Social work, Care Navigation, and Utilization Review to arrange appropriate level of services according to patient's needs based on patient preference and payer coverage in collaboration with the physician and health care team 3. Address psychosocial, clinical, and financial barriers to discharge as identified in assessment in conjunction with the patient/family and health care team 4. Consult appropriate ancillary services (i.e.. PT/OT/ST, etc) as needed 5. Communicate with and update the patient/family, physician, and health care team regarding progress on the discharge plan 6. Identify discharge learning needs (meds, wound care, etc). 7. Arrange for needed discharge transportation as appropriate Outcome: Progressing Note: Evaluation of progress towards goal: Patient is planned to be discharged when medically ready. Patients home needs are are assessed. Will continue to monitor. documented in this encounter Plan of Treatment Upcoming Encounters Date Type Department Care Team (Late st Contact Info) Description 10/08/2024 1:45 PM EDT Office Visit [facility] [address] [facility] [facility] [address] [place] [id number] Addison Cox MD [address] [facility] [facility] [place], [place] [id number] 10/12/2024 12:45 PM EDT Office Visit Kristine Dumont [facility] - Medical Oncology [address] [place] [address] Bryon Azevedo MD [address] [facility] [address] [place], [place] [id number] Scheduled Orders Name Type Priority Associated Diagnoses Orde r Schedule Lower resp/sputum culture inc gram stain: Patient acquired Microbiology Routine Once for 1 Occur rences starting 08/30/2024 until 08/30/2024 documented as of this encounter Goals Goal Patient Goal Type Associated Problems Recent Progress Patient-Stated? Author home with O2 General Yes Stephany Klein LSW Note: Evaluation of progress towards goal: under assessment documented as of this encounter Procedures Procedure Name Priority Date/Time Associated Diagnosis Comments CBC WITH AUTO DIFFERENTIAL Routine 08/30/2024 5:01 AM EDT MAGNESIUM Routine 08/30/2024 5:01 AM EDT COMPREHENSIVE METABOLIC PANEL Routine 08/30/2024 5:01 AM EDT PROCALCITONIN Add-On 08/29/2024 10:08 PM EDT LACTATE W/ REFLEX Routine 08/29/2024 10: [address] CTA CHEST STAT 08/29/2024 7:49 PM EDT TROP I, HIGH SENSITIVITY 1 HOUR STAT 08/29/2024 7:13 PM EDT TROPONIN I, HIGH SENSITIVITY 0 HOUR STAT 08/29/2024 6:11 PM EDT TROPONIN I, HIGH SENSITIVITY 0 HOUR STAT 08/29/2024 6:11 PM EDT CBC WITH AUTO DIFFERENTIAL STAT 08/29/2024 6:11 PM EDT APTT STAT 08/29/2024 6:11 PM EDT PROTIME & INR STAT 08/29/2024 6:11 PM EDT D-DIMER STAT 08/29/2024 6:11 PM EDT MAGNESIUM STAT 08/29/2024 6:11 PM EDT COMPREHENSIVE METABOLIC PANEL STAT 08/29/2024 6:11 PM EDT ECG 12-LEAD STAT 08/29/2024 5:52 PM EDT documented in this encounter Results * (ABNORMAL) CBC auto differential (08/30/2024 5:01 AM EDT) [facility] WBC 5.0 4 - 11 x10E9/L 08/30/2024 5:53 AM EDT [facility] RBC Count 3.85(L) 4.1 - 5.7 X10E12/L 08/30/2024 5:53 AM EDT [facility] Hemoglobin 11.1(L) 13 - 17 g/dL 08/30/2024 5:53 AM EDT [facility] Hematocrit 32.2(L) 39 - 50 % 08/30/2024 5:53 AM EDT [facility] MCV 84 80 - 100 fL 08/30/2024 5:53 AM EDT [facility] MCH 28.8 27 - 34 pg 08/30/2024 5:53 AM EDT [facility] MCHC 34.4 32 - 36 g/dL 08/30/2024 5:53 AM EDT [facility] RDW 18.8(H) 11.5 - 15 % 08/30/2024 5:53 AM EDT [facility] Platelet Count 137(L) 150 - 450 X10E9/L 08/30/2024 5:53 AM EDT [facility] MPV 7.5 7 - 12 fL 08/30/2024 5:53 AM EDT [facility] Neutrophils % 89.4 % 08/30/2024 5:53 AM EDT [facility] Lymphocytes % 4.9 % 08/30/2024 5:53 AM EDT [facility] Monocytes % 5.3 % 08/30/2024 5:53 AM EDT [facility] Eosinophils % 0.2 % 08/30/2024 5:53 AM EDT [facility] Basophils % 0.2 % 08/30/2024 5:53 AM EDT [facility] Neutrophils Absolute (A) 4.4 1.5 - 6.6 10*3/uL 08/30/2024 5:53 AM EDT [facility] Lymphocytes Absolute 0.2(L) 1.0 - 3.5 10*3/uL 08/30/2024 5:53 AM EDT [facility] Monocytes Absolute 0.3 0.0 - 0.9 10*3/uL 08/30/2024 5:53 AM EDT [facility] Eosinophils Absolute 0.0 0.0 - 0.4 10*3/uL 08/30/2024 5:53 AM EDT [facility] Basophils Absolute 0.0 0.0 - 0.2 10*3/uL 08/30/2024 5:53 AM EDT [facility] Differential Type AUTOMATED DIFFERENTIAL 08/30/2024 5:53 AM EDT [facility] Blood Venous blood / Unknown Venipuncture / Unknown 08/30/2024 5:01 AM EDT 08/30/2024 5:13 AM EDT Rosita Duran Neal DECORATOR INSPECTOR-PLATFORM BUILDER LAB BLOOD ORDERABLES Dawna l Result [address] [place] [address], [place] * Magnesium (08/30/2024 5:01 AM EDT) MAGNESIUM 1.9 1.8 - 2.6 mg/dL 08/30/2024 5:39 AM EDT [facility] Blood Venous blood / Unknown Venipuncture / Unknown 08/30/2024 5:01 AM EDT 08/30/2024 5:13 AM EDT Rosita De Jesus DECORATOR INSPECTOR-PLATFORM BUILDER LAB BLOOD ORDERABLES Dawna l Result Performing Organization Address City/[facility]/ZIP Co de Phone Number [address] [place] [address], [place] * (ABNORMAL) Comprehensive metabolic panel (08/30/2024 5:01 AM EDT) SODIUM 136 134 - 146 mmol/L 08/30/2024 5:39 AM EDT [facility] POTASSIUM 3.7 3.5 - 5.0 mmol/L 08/30/2024 5:39 AM EDT [facility] CHLORIDE 103 98 - 109 mmol/L 08/30/2024 5:39 AM EDT [facility] CARBON DIOXIDE 23 22 - 32 mmol/L 08/30/2024 5:39 AM EDT [facility] ANION GAP 10 5 - 15 mmol/L 08/30/2024 5:39 AM EDT [facility] BLOOD UREA NITROGEN 7 5 - 23 mg/dL 08/30/2024 5:39 AM EDT [facility] CREATININE 0.70 0.70 - 1.20 mg/dL 08/30/2024 5:39 AM EDT [facility] Comment:METHOD TRACEABLE TO IDMN STANDARD GLUCOSE 127(H) 65 - 99 mg/dL 08/30/2024 5:39 AM EDT [facility] CALCIUM 9.4 8.5 - 10.5 mg/dL 08/30/2024 5:39 AM EDT [facility] TOTAL PROTEIN 7.1 6.0 - 8.0 g/dL 08/30/2024 5:39 AM EDT [facility] ALBUMIN 3.3 3.2 - 5.3 g/dL 08/30/2024 5:39 AM EDT [facility] ALKALINE PHOSPHATASE 82 39 - 130 U/L 08/30/2024 5:39 AM EDT [facility] AST 33 <=41 U/L 08/30/2024 5:39 AM EDT [facility] ALT 42(H) <=40 U/L 08/30/2024 5:39 AM EDT [facility] BILIRUBIN,TOTAL 0.9 0.3 - 1.2 mg/dL 08/30/2024 5:39 AM EDT [facility] EGFR Non-Race Dependent >90 >=60 ml/min/1.7 3sq.m 08/30/2024 5:39 AM EDT [facility] Comment: eGFR not reported due to non-numeric value for Creatinine. Reported eGFR is based on the CKD-EPI 2020 equation that does not use a race coefficient. Blood Venous blood / Unknown Venipuncture / Unknown 08/30/2024 5:01 AM EDT 08/30/2024 5:13 AM EDT Rosita De Jesus DECORATOR INSPECTOR-PLATFORM BUILDER LAB BLOOD ORDERABLES Dawna l Result Performing Organization Address City/[facility]/ZIP Co de Phone Number [address] [place] [address], [place] * Lactate w/ Reflex (08/29/2024 10:08 PM EDT) LACTATE W/REFLEX 1.5 0.4 - 2.0 mmol/L 08/29/2024 10:32 PM EDT [facility] Blood Venous blood / Unknown Venipuncture / Unknown 08/29/2024 10:08 PM EDT 08/29/2024 10:11 PM EDT [facility] - 08/29/2024 10:32 PM EDT Result did not trigger repeat Lactate, re-order if needed. us Rosita Duran De Jesus DECORATOR INSPECTOR-PLATFORM BUILDER LAB BLOOD ORDERABLES Dawna l Result Performing Organization Address [facility] Co de Phone Number [address] [place] [address], [place] * (ABNORMAL) Procalcitonin (08/29/2024 10:08 PM EDT) PROCALCITONIN 0.19(H) <0.05 ng/mL 08/29/2024 10:46 PM EDT [facility] Blood Venous blood / Unknown Venipuncture / Unknown 08/29/2024 10:08 PM EDT 08/29/2024 10:10 PM EDT Narrative [facility] - 08/29/2024 10:46 PM EDT <0.50 ng/mL - Low risk of severe sepsis and/or septic shock. <2.00 ng/mL - Recommend retesting within 6-24 hours. >2.00 ng/mL - High risk of sepsis and/or septic shock. Rosita Roger Neal DECORATOR INSPECTOR-PLATFORM BUILDER LAB BLOOD ORDERABLES Dawna l Result Performing Organization Address City/[facility]/ZIP Co de Phone Number [facility] [address] [place] [address], [place] * CT angiogram chest (08/29/2024 7:49 PM EDT) Anatomical Region Laterality Modality Lung, Body, Chest, Vascular, Body Covera N/A Computed Tomography 08/29/2024 8:11 PM EDT Narrative 08/29/2024 8:[address] CTA CHEST: 08/29/2024 PROVIDED HISTORY: * 44 years old Male * sob, elevated dimer COMPARISON: CT chest 12/23/2023, PET/CT 06/01/2024 TECHNIQUE: 1. Contrast-enhanced CT of the chest with thin section, early arterial phase images according to the pulmonary embolism protocol. Patient received nonionic contrast. 3-D maximum intensity projection images generated and reviewed under concurrent physician supervision. Automated exposure control was utilized. 2. All CT scans at this facility use dose modulation, iterative reconstruction, and/or weight based dosing when appropriate to reduce radiation dose to as low as reasonably achievable. FINDINGS: No filling defects in the pulmonary arteries to suggest pulmonary embolism. Main pulmonary artery caliber is up to 3.2 cm. Nonaneurysmal thoracic aorta. Left chest wall Xthbfx-l-Efwn catheter with tip at level of cavoatrial junction. Heart is not enlarged. No significant pericardial effusion. No significant coronary calcifications. Right hilar soft tissue mass measuring up to 6.3 cm with narrowing of the traversing right pulmonary arterial tree and traversing right pulmonary airway. Development of innumerable nodular and groundglass pulmonary opacities throughout the lungs, increased from PET/CT of 06/01/2024. Small/moderate right pleural effusion. No significant left pleural effusion. Mediastinal adenopathy, including right precarinal lymph nodes measuring up to 14 mm short axis, extensive subcarinal lymph node areas, prevascular lymph nodes measuring up to 10 mm short axis. No suspicious osseous abnormality. Degenerative changes of the spine. No acute process in the visualized upper abdomen. IMPRESSION: 1. No evidence of pulmonary embolism. 2. Concern for disease progression with increased number of now innumerable solid pulmonary nodules and development of multifocal groundglass opacities throughout the lungs and enlargement of presumed primary right hilar soft tissue mass compared to PET/CT of 06/01/2024. Finalized by Theron Guevara MD on 08/29/2024 8:21 PM Procedure Note Theron Guevara MD - 08/29/2024 CT CTA CHEST: 08/29/2024 PROVIDED HISTORY: * 44 years old Male * sob, elevated dimer COMPARISON: CT chest 12/23/2023, PET/CT 06/01/2024 TECHNIQUE: 1. Contrast-enhanced CT of the chest with thin section, early arterialphase images according to the pulmonary embolism protocol. Patientreceived nonionic contrast. 3-D maximum intensity projection imagesgenerated and reviewed under concurrent physician supervision. Automatedexposure control was utilized. 2. All CT scans at this facility use dose modulation, iterativereconstruction, and/or weight based dosing when appropriate to reduceradiation dose to as low as reasonably achievable. FINDINGS: No filling defects in the pulmonary arteries to suggest pulmonaryembolism. Main pulmonary artery caliber is up to 3.2 cm. Nonaneurysmal thoracic aorta. Left chest wall Pabvcp-s-Nlzf catheter withtip at level of cavoatrial junction. Heart is not enlarged. No significant pericardial effusion. No significantcoronary calcifications. Right hilar soft tissue mass measuring up to 6.3 cm with narrowing of thetraversing right pulmonary arterial tree and traversing right pulmonaryairway. Development of innumerable nodular and groundglass pulmonaryopacities throughout the lungs, increased from PET/CT of 06/01/2024.Small/moderate right pleural effusion. No significant left pleural effusion. Mediastinal adenopathy, including right precarinal lymph nodes measuringup to 14 mm short axis, extensive subcarinal lymph node areas, prevascularlymph nodes measuring up to 10 mm short axis. No suspicious osseous abnormality. Degenerative changes of the spine. No acute process in the visualized upper abdomen. IMPRESSION: 1. No evidence of pulmonary embolism. 2. Concern for disease progression with increased number of nowinnumerable solid pulmonary nodules and development of multifocalgroundglass opacities throughout the lungs and enlargement of presumedprimary right hilar soft tissue mass compared to PET/CT of 06/01/2024. Finalized by Theron Guevara MD on 08/29/2024 8:21 PM Zakiya Viera DECORATOR INSPECTOR-PLATFORM BUILDER IMG CT ORDERABLES Final Re sult * Troponin I, High Sensitivity 1 Hour (08/29/2024 7:13 PM EDT) TROPONIN I, HIGH SENSITIVITY <2 <21 ng/L 08/29/2024 7:58 PM EDT [facility] Blood Venous blood / Unknown Venipuncture / Unknown 08/29/2024 7:13 PM EDT 08/29/2024 7:15 PM EDT Zakiya Maximiliano DECORATOR INSPECTOR-PLATFORM BUILDER LAB BLOOD ORDERABLES Final Result Performing Organization Address City/[facility]/ZIP Co de Phone Number [address] [place] [address], [place] * APTT (08/29/2024 6:11 PM EDT) APTT 32 26 - 37 sec 08/29/2024 6:25 PM EDT [facility] Blood Venous blood / Unknown Venipuncture / Unknown 08/29/2024 6:11 PM EDT 08/29/2024 6:13 PM EDT Harrison Staples MD LAB BLOOD ORDERABLES Final Resu lt Performing Organization Address City/[facility]/ZIP Co de Phone Number [address] [place] [address], [place] * (ABNORMAL) Protime & INR (08/29/2024 6:11 PM EDT) PROTIME 20.9(H) 9.8 - 13.2 sec 08/29/2024 6:25 PM EDT [facility] INR 1.8(H) 0.9 - 1.2 08/29/2024 6:25 PM EDT [facility] Blood Venous blood / Unknown Venipuncture / Unknown 08/29/2024 6:11 PM EDT 08/29/2024 6:13 PM EDT Harrison Staples MD LAB BLOOD ORDERABLES Final Resu lt Performing Organization Address [facility] Co de Phone Number [address] [place] [address], [place] * Troponin I, High Sensitivity 0 Hour (08/29/2024 6:11 PM EDT) TROPONIN I, HIGH SENSITIVITY <2 <21 ng/L 08/29/2024 6:42 PM EDT [facility] Blood Venous blood / Unknown Venipuncture / Unknown 08/29/2024 6:11 PM EDT 08/29/2024 6:13 PM EDT Zakiya Viera DECORATOR INSPECTOR-PLATFORM BUILDER LAB BLOOD ORDERABLES Final Result Performing Organization Address [facility] de Phone Number [address] [place] [address], [place] * (ABNORMAL) Magnesium (08/29/2024 6:11 PM EDT) Pathologist [facility] MAGNESIUM 1.6(L) 1.8 - 2.6 mg/dL 08/29/2024 6:34 PM EDT [facility] Blood Venous blood / Unknown Venipuncture / Unknown 08/29/2024 6:11 PM EDT 08/29/2024 6:13 PM EDT Zakiya Viera DECORATOR INSPECTOR-PLATFORM BUILDER LAB BLOOD ORDERABLES Final Result Performing Organization Address [facility] Co de Phone Number [address] [place] [address], [place] * (ABNORMAL) D-Dimer (08/29/2024 6:11 PM EDT) D DIMER 963(H) 1 - 255 ug/mL 08/29/2024 6:25 PM EDT [facility] Comment:Results >255 ng/mL D DU: Results may be indicative of the presence of VTE. The use of the Wells score and further diagnostic tests should be considered. Elevated D-Dimer levels can be associated with DIC, neoplasm, , trauma and liver disease. Elevated levels of rheumatoid factor may lead to an overestimation of the D-Dimer level. Blood Venous blood / Unknown Venipuncture / Unknown 08/29/2024 6:11 PM EDT 08/29/2024 6:13 PM EDT us Zakiya Viera DECORATOR INSPECTOR-PLATFORM BUILDER LAB BLOOD ORDERABLES Final Result [facility] [address] [facility] [place] [address], * (ABNORMAL) Comprehensive metabolic panel (08/29/2024 6:11 PM EDT) SODIUM 134 134 - 146 mmol/L 08/29/2024 6:34 PM EDT [facility] POTASSIUM 3.6 3.5 - 5.0 mmol/L 08/29/2024 6:34 PM EDT [facility] CHLORIDE 102 98 - 109 mmol/L 08/29/2024 6:34 PM EDT [facility] CARBON DIOXIDE 23 22 - 32 mmol/L 08/29/2024 6:34 PM EDT [facility] ANION GAP 9 5 - 15 mmol/L 08/29/2024 6:34 PM EDT [facility] BLOOD UREA NITROGEN 8 5 - 23 mg/dL 08/29/2024 6:34 PM EDT [facility] CREATININE 0.88 0.70 - 1.20 mg/dL 08/29/2024 6:34 PM EDT [facility] Comment:METHOD TRACEABLE TO IDMS STANDARD GLUCOSE 133(H) 65 - 99 mg/dL 08/29/2024 6:34 PM EDT [facility] CALCIUM 9.3 8.5 - 10.5 mg/dL 08/29/2024 6:34 PM EDT [facility] TOTAL PROTEIN 7.0 6.0 - 8.0 g/dL 08/29/2024 6:34 PM EDT [facility] ALBUMIN 3.4 3.2 - 5.3 g/dL 08/29/2024 6:34 PM EDT [facility] ALKALINE PHOSPHATASE 80 39 - 130 U/L 08/29/2024 6:34 PM EDT [facility] AST 37 <=41 U/L 08/29/2024 6:34 PM EDT [facility] ALT 46(H) <=40 U/L 08/29/2024 6:34 PM EDT [facility] BILIRUBIN,TOTAL 1.0 0.3 - 1.2 mg/dL 08/29/2024 6:34 PM EDT [facility] EGFR Non-Race Dependent >90 >=60 ml/min/1.7 3sq.m 08/29/2024 6:34 PM EDT [facility] Comment: eGFR not reported due to non-numeric value for Creatinine. Reported eGFR is based on the CKD-EPI 2020 equation that does not use a race coefficient. Blood Venous blood / Unknown Venipuncture / Unknown 08/29/2024 6:11 PM EDT 08/29/2024 6:13 PM EDT us Zakiya Viera DECORATOR INSPECTOR-PLATFORM BUILDER LAB BLOOD ORDERABLES Final Result [facility] [address] [place] [address], * (ABNORMAL) CBC auto differential (08/29/2024 6:11 PM EDT) WBC 4.3 4 - 11 x10E9/L 08/29/2024 6:21 PM EDT [facility] RBC Count 3.88(L) 4.1 - 5.7 X10E12/L 08/29/2024 6:21 PM EDT [facility] Hemoglobin 11.1(L) 13 - 17 g/dL 08/29/2024 6:21 PM EDT [facility] Hematocrit 32.4(L) 39 - 50 % 08/29/2024 6:21 PM EDT [facility] MCV 84 80 - 100 fL 08/29/2024 6:21 PM EDT [facility] MCH 28.7 27 - 34 pg 08/29/2024 6:21 PM EDT [facility] MCHC 34.4 32 - 36 g/dL 08/29/2024 6:21 PM EDT [facility] RDW 19.0(H) 11.5 - 15 % 08/29/2024 6:21 PM EDT [facility] Platelet Count 132(L) 150 - 450 X10E9/L 08/29/2024 6:21 PM EDT [facility] MPV 7.0 7 - 12 fL 08/29/2024 6:21 PM EDT [facility] Neutrophils % 72.6 % 08/29/2024 6:21 PM EDT [facility] Lymphocytes % 8.2 % 08/29/2024 6:21 PM EDT [facility] Monocytes % 18.1 % 08/29/2024 6:21 PM EDT [facility] Eosinophils % 0.7 % 08/29/2024 6:21 PM EDT [facility] Basophils % 0.4 % 08/29/2024 6:21 PM EDT [facility] Neutrophils Absolute (A) 3.1 1.5 - 6.6 10*3/uL 08/29/2024 6:21 PM EDT [facility] Lymphocytes Absolute 0.4(L) 1.0 - 3.5 10*3/uL 08/29/2024 6:21 PM EDT [facility] Monocytes Absolute 0.8 0.0 - 0.9 10*3/uL 08/29/2024 6:21 PM EDT [facility] Eosinophils Absolute 0.0 0.0 - 0.4 10*3/uL 08/29/2024 6:21 PM EDT [facility] Basophils Absolute 0.0 0.0 - 0.2 10*3/uL 08/29/2024 6:21 PM EDT [facility] Differential Type AUTOMATED DIFFERENTIAL 08/29/2024 6:21 PM EDT [facility] Blood Venous blood / Unknown Venipuncture / Unknown 08/29/2024 6:11 PM EDT 08/29/2024 6:13 PM EDT Zakiya Viera DECORATOR INSPECTOR-PLATFORM BUILDER LAB BLOOD ORDERABLES Final Result [facility] [address] [place] [address], [place] * ECG 12 lead (08/29/2024 5:52 PM EDT) 08/29/2024 5:52 PM EDT Narrative [facility] - 08/29/2024 7:29 PM EDT Zakiya Viera DECORATOR INSPECTOR-PLATFORM BUILDER ECG ORDERABLES Final Resu lt [facility] documented in this encounter Visit Diagnoses Diagnosis Malignant neoplasm of lung, unspecified laterality, unspecified part of lung (CMS-HCC)- Primary Malignant neoplasm of lung, unspecified laterality, unspecified part of lung (CMS-HCC) Hypoxemia Metastatic non-small cell lung cancer (CMS-HCC) Anxiety Anxiety state, unspecified Paroxysmal atrial fibrillation (CMS-HCC) Atrial fibrillation Chronic HFrEF (heart failure with reduced ejection fraction) (CMS-HCC) documented in this encounter Admitting Diagnoses Diagnosis Malignant neoplasm of lung, unspecified laterality, unspecified part of lung (CMS-HCC) documented in this encounter Administered Medications Inactive Administered Medications - up to 3 most recent administrations Medication Order MAR Action Action Date Dose Rate Site acetaminophen (TYLENOL EXTRA STRENGTH) tablet 500 mg 500 mg, oral, Every 6 hours PRN, mild pain - pain scale 1-3, headaches, temperature greater than 38 C, Starting on Tue08/29/24 at 2147, [Warning: Total Acetaminophen not to exceed more than 4 grams (4000 mg) in 24 hours] ALPRAZolam (XANAX) tablet 1 mg 1 mg, oral, Nightly PRN, anxiety, sleep, Starting on Tue08/29/24 at 2320, Look-alike/sound-alike medication - verify indication for use. Given 08/30/2024 12:49 AM EDT 1 mg alum-mag hydroxide-simeth (MAALOX) 200-200-20 mg/5 mL suspension 30 mL 30 mL, oral, 4 times daily after meals and at bedtime as needed, dyspepsia, Starting on Tue08/29/24 at 2147, Look-alike/sound-alike medication - verify indication for use. Thai burrows, Indications: dyspepsiaIndications:dyspepsia amiodarone (PACERONE) tablet 200 mg 200 mg, oral, Daily, First dose on Tue08/30/24 at 0900, Look-alike/sound-alike medication - verify indication for use. Given 08/30/2024 9:49 AM EDT 200 mg apixaban (ELIQUIS) tablet 5 mg 5 mg, oral, 2 times daily, First dose on Tue08/30/24 at 0200, Indication: Nonvalvular Atrial Fibrillation (NVAF) Given 08/30/2024 9:49 AM EDT 5 mg Given 08/30/2024 2:38 AM EDT 5 mg buprenorphine-naloxone (SUBOXONE) 8-2 mg per disintegrating tablet 1 tablet 1 tablet, sublingual, 2 times daily, First dose on Tue08/30/24 at 1200 Given 08/30/2024 12:05 PM EDT 1 tablet dapagliflozin propanediol (FARXIGA) tablet 10 mg 10 mg, oral, Daily, First dose on Tue08/30/24 at 0900 Given 08/30/2024 9:49 AM EDT 10 mg dextromethorphan-guaiFENesin (MUCINEX DM) 30-600 mg per 12 hr tablet 1 tablet 1 tablet, oral, Every 12 hours scheduled, First dose on Tue08/29/24 at 2205, Look-alike/sound-alike medication - verify indication for use. Given 08/30/2024 9:49 AM EDT 1 tablet guaiFENesin (MUCINEX) tablet 600 mg 600 mg, oral, Every 12 hours scheduled, First dose on 08/30/25 at 1200, Look-alike/sound-alike medication - verify indication for use. Do not crush or chew. Given 08/30/2024 12:05 PM EDT 6 00 mg iohexoL (OMNIPAQUE) 350 mg iodine/mL injection 100 mL 100 mL, intravenous, Once in imaging, contrast, Starting on Tue08/29/24 at 1928, For 1 dose, VESICANT (RED) Given 08/29/2024 7:40 PM EDT 100 mL ipratropium-albuteroL (DUONEB) 0.5 mg-3 mg(2.5 mg base)/3 mL nebulizer solution 3 mL 3 mL, nebulization, Every 6 hours, First dose on Tue08/29/24 at 2150, Implement INPATIENT/ED Bronchodilator Clinical Practice Guidelines? Yes Given 08/30/2024 12:29 PM EDT 3 mL Given 08/30/2024 1:00 AM EDT 3 mL magnesium sulfate IVPB 1000 mg/100 mL in dextrose 5% (10 mg/mL premix) 1,000 mg, intravenous, at 100 mL/hr, Administer over 60 Minutes, Once, On Tue08/29/24 at 2000, For 1 dose, Infuse each gram over 60 minutes. New Bag 08/29/2024 8:05 PM EDT 1,000 mg 100 mL/hr magnesium sulfate IVPB 2000 mg/50 mL in iso-osmotic water (40 mg/mL premix) 2,000 mg, intravenous, at 25 mL/hr, Administer over 120 Minutes, As needed, Magnesium level 1.7-1.9, Starting on Tue08/29/24 at 2147, Recheck magnesium level 4 hours after infusion complete. With each magnesium result continue the replacement orders as needed. New Bag 08/30/2024 11:33 AM EDT 2,000 mg 25 mL/hr magnesium sulfate IVPB 4000 mg/100 mL in iso-osmotic water (40 mg/mL premix) 4,000 mg, intravenous, at 25 mL/hr, Administer over 240 Minutes, As needed, Magnesium level 1.6 mg/dL or less, Starting on Tue08/29/24 at 2147, Recheck magnesium level 4 hours after infusion complete. With each magnesium result continue the replacement orders as needed. methylPREDNISolone sod suc(PF) (Solu-MEDROL) injection 60 mg 60 mg, intravenous, Every 12 hours scheduled, First dose on Tue08/29/24 at 2205, May alter blood glucose or insulin requirements. Look-alike/sound-alike medication - verify indication for use. Given 08/30/2024 9:49 AM EDT 60 mg Given 08/30/2024 12:49 AM EDT 60 mg metoprolol tartrate (LOPRESSOR) tablet 25 mg 25 mg, oral, 2 times daily, First dose on Sheila 08/30/24 at 1130, Hold for sbp>100 or hr<60 Look-alike/sound-alike medication - verify indication for use. Given 08/30/2024 12:05 PM EDT 25 mg potassium chloride (KAYCIEL) 20 mEq/15 mL solution 30-40 mEq 30-40 mEq, oral, As needed, Potassium Supplementation, Starting on Tue08/29/24 at 2147, Progress to oral potassium replacement when patient tolerating oral intake. If dose administered, recheck potassium level 4 hours after last dose. For potassium level 3.4 to 3.8 mmol/L and GFR 30 mL/min or greater=30 mEq. For potassium level 3.1 to 3.3 mmol/L and GFR 30 mL/min or greater=40 mEq. For potassium level 3 mmol/L or less and GFR 30 mL/min or greater=50 mEq. Must dilute before use - Mix in 3-8 ounces of water or juice before administration When administering in feeding tube, flush before and after per policy and monitor potassium levels potassium chloride (KLOR-CON M 20) CR tablet 30-40 mEq 30-40 mEq, oral, As needed, Potassium Supplementation, Starting on Tue08/29/24 at 2147, Progress to oral potassium replacement when patient tolerating oral intake. If dose administered, recheck potassium level 4 hours after last dose. For potassium level 3.4 to 3.8 mmol/L and GFR 30 mL/min or greater=30 mEq. For potassium level 3.1 to 3.3 mmol/L and GFR 30 mL/min or greater=40 mEq. For potassium level 3 mmol/L or less and GFR 30 mL/min or greater=50 mEq. Do not crush or chew. potassium chloride IVPB 10 mEq/100 mL in water (0.1 mEq/mL premix) 10 mEq, intravenous, at 100 mL/hr, Administer over 60 Minutes, As needed, POTASSIUM REPLACEMENT, Starting on Tue08/29/24 at 2147, IV if unable to use oral/enteral with the current dosing strategies Potassium level 3 mmol/L or less administer Potassium Chloride 50 mEq Potassium level 3.1 to 3.3 mmol/L administer Potassium Chloride 40 mEq Potassium level 3.4 to 3.8 mmol/L administer Potassium Chloride 30 mEq Use central line when applicable. Recheck potassium level 1 hour after total IVPB infusion complete, With each potassium result continue the replacement orders as needed VESICANT (YELLOW) Infuse each 10 mEq over a minimum of 1 hour. sennosides-docusate sodium (SENOKOT-S) 8.6-50 mg 1 tablet 1 tablet, oral, Every 12 hours PRN, constipation, Starting on Tue08/29/24 at 2147 sodium chloride 0.9 % flush 10 mL 10 mL, intravenous, As needed, line care, Starting on Tue08/29/24 at 1928 Given 08/29/2024 7:43 PM EDT 10 mL sodium chloride 0.9 % radiology injection 80 mL, intravenous, Once in imaging, pre/post contrast, Starting on Tue08/29/24 at 1928, For 1 dose Given 08/29/2024 7:40 PM EDT 80 mL documented in this encounter Active and Recently Administered Medications Times are shown in EDT. Scheduled Medication Order 08/28/2024 08/29/2024 08/30/2024 amiodarone (PACERONE) tablet 200 mg 200 mg, oral, Daily, First dose on Sheila 08/30/24 at 0900, Look-alike/sound-alike medication - verify indication for use. 0949 (Given - Provid er: Jewel Thompson RN) apixaban (ELIQUIS) tablet 5 mg 5 mg, oral, 2 times daily, First dose on Sheila 08/30/24 at 0200, Indication: Nonvalvular Atrial Fibrillation (NVAF) 0238 (Given - Provid er: Atiya Li RN)0949 (Given - Provider: Jewel Thompson RN) buprenorphine-naloxone (SUBOXONE) 8-2 mg per disintegrating tablet 1 tablet 1 tablet, sublingual, 2 times daily, First dose on Sheila /10/25 at 1200 1205 (Given - Provid er: Jewel Thompson RN) dapagliflozin propanediol (FARXIGA) tablet 10 mg 10 mg, oral, Daily, First dose on Tue08/30/24 at 0900 0949 (Given - Provid er: Jewel Thompson RN) dextromethorphan-guaiFENesin (MUCINEX DM) 30-600 mg per 12 hr tablet 1 tablet 1 tablet, oral, Every 12 hours scheduled, First dose on Tue08/29/24 at 2205, Look-alike/sound-alike medication - verify indication for use. 2205 (Not Given - Provider: Atiya Li RN - Reason: Patient/family refused) 0949 (Given - Provider: Jewel Thompson RN) guaiFENesin (MUCINEX) tablet 600 mg 600 mg, oral, Every 12 hours scheduled, First dose on Tue08/30/24 at 1200, Look-alike/sound-alike medication - verify indication for use. Do not crush or chew. 1205 (Given - Provid er: Jewel Thompson RN) ipratropium-albuteroL (DUONEB) 0.5 mg-3 mg(2.5 mg base)/3 mL nebulizer solution 3 mL 3 mL, nebulization, Every 6 hours, First dose on Tue08/29/24 at 2150, Implement INPATIENT/ED Bronchodilator Clinical Practice Guidelines? Yes 0 (Not Given - Provider: Marine Marley RCP - Reason: See Provider Order) 0100 (Given - Provider: Marine Marley RCP)0800 (Not Given - Provider: Lala Wilson RCP - Reason: Patient/family refused)1229 (Given - Provider: Lala Wilson RCP)1400 (Canceled Entry - Provider: Lala Wilson RCP) magnesium sulfate IVPB 1000 mg/100 mL in dextrose 5% (10 mg/mL premix) (COMPLETED) 1,000 mg, intravenous, at 100 mL/hr, Administer over 60 Minutes, Once, On Tue08/29/24 at 2000, For 1 dose, Infuse each gram over 60 minutes. 2004 (New Bag - Provider: Jewel Bush RN)2101 (Stop Bag - Provider: Becky Zuñiga RN) methylPREDNISolone sod suc(PF) (Solu-MEDROL) injection 60 mg 60 mg, intravenous, Every 12 hours scheduled, First dose on Tue08/29/24 at 2205, May alter blood glucose or insulin requirements. Look-alike/sound-alike medication - verify indication for use. 0049 (Given - Provid er: Atiya Li RN)0949 (Given - Provider: Jewel Thompson RN) metoprolol tartrate (LOPRESSOR) tablet 25 mg 25 mg, oral, 2 times daily, First dose on Tue08/30/24 at 1130, Hold for sbp>100 or hr<60 Look-alike/sound-alike medication - verify indication for use. 1205 (Given - Provid er: Jewel Thompson RN) PRN Medication Order 08/28/2024 08/29/2024 08/30/2024 acetaminophen (TYLENOL EXTRA STRENGTH) tablet 500 mg 500 mg, oral, Every 6 hours PRN, mild pain - pain scale 1-3, headaches, temperature greater than 38 C, Starting on Tue08/29/24 at 2147, [Warning: Total Acetaminophen not to exceed more than 4 grams (4000 mg) in 24 hours] albuterol (PROVENTIL,VENTOLIN) nebulizer solution 2.5 mg 2.5 mg, nebulization, Every 4 hours PRN, wheezing, shortness of breath, Starting on Tue08/30/24 at 1122, Implement INPATIENT/ED Bronchodilator Clinical Practice Guidelines? Yes ALPRAZolam (XANAX) tablet 1 mg 1 mg, oral, Nightly PRN, anxiety, sleep, Starting on Tue08/29/24 at 2320, Look-alike/sound-alike medication - verify indication for use. 0049 (Given - Provid er: Atiya Li RN) alum-mag hydroxide-simeth (MAALOX) 200-200-20 mg/5 mL suspension 30 mL 30 mL, oral, 4 times daily after meals and at bedtime as needed, dyspepsia, Starting on Tue08/29/24 at 2147, Look-alike/sound-alike medication - verify indication for use. Shake well., Indications: dyspepsia iohexoL (OMNIPAQUE) 350 mg iodine/mL injection 100 mL (COMPLETED) 100 mL, intravenous, Once in imaging, contrast, Starting on Tue08/29/24 at 1928, For 1 dose, VESICANT (RED) 1940 (Given - Provider: Deepti Medley, RT - Comment: lot [id number] 05/15/27) magnesium sulfate IVPB 2000 mg/50 mL in iso-osmotic water (40 mg/mL premix) 2,000 mg, intravenous, at 25 mL/hr, Administer over 120 Minutes, As needed, Magnesium level 1.7-1.9, Starting on Tue08/29/24 at 2147, Recheck magnesium level 4 hours after infusion complete. With each magnesium result continue the replacement orders as needed. 1133 (New Bag - Provider: Jewel Thompson, RN)1333 (Stop Bag - Provider: Jewel Thompson, THERESA) magnesium sulfate IVPB 4000 mg/100 mL in iso-osmotic water (40 mg/mL premix) 4,000 mg, intravenous, at 25 mL/hr, Administer over 240 Minutes, As needed, Magnesium level 1.6 mg/dL or less, Starting on Tue08/29/24 at 2147, Recheck magnesium level 4 hours after infusion complete. With each magnesium result continue the replacement orders as needed. potassium chloride (KAYCIEL) 20 mEq/15 mL solution 30-40 mEq(Linked Group 1) 30-40 mEq, oral, As needed, Potassium Supplementation, Starting on Tue08/29/24 at 2147, Progress to oral potassium replacement when patient tolerating oral intake. If dose administered, recheck potassium level 4 hours after last dose. For potassium level 3.4 to 3.8 mmol/L and GFR 30 mL/min or greater=30 mEq. For potassium level 3.1 to 3.3 mmol/L and GFR 30 mL/min or greater=40 mEq. For potassium level 3 mmol/L or less and GFR 30 mL/min or greater=50 mEq. Must dilute before use - Mix in 3-8 ounces of water or juice before administration When administering in feeding tube, flush before and after per policy and monitor potassium levels potassium chloride (KLOR-CON M 20) CR tablet 30-40 mEq(Linked Group 1) 30-40 mEq, oral, As needed, Potassium Supplementation, Starting on Tue08/29/24 at 2147, Progress to oral potassium replacement when patient tolerating oral intake. If dose administered, recheck potassium level 4 hours after last dose. For potassium level 3.4 to 3.8 mmol/L and GFR 30 mL/min or greater=30 mEq. For potassium level 3.1 to 3.3 mmol/L and GFR 30 mL/min or greater=40 mEq. For potassium level 3 mmol/L or less and GFR 30 mL/min or greater=50 mEq. Do not crush or chew. potassium chloride IVPB 10 mEq/100 mL in water (0.1 mEq/mL premix)(Linked Group 1) 10 mEq, intravenous, at 100 mL/hr, Administer over 60 Minutes, As needed, POTASSIUM REPLACEMENT, Starting on Tue08/29/24 at 2147, IV if unable to use oral/enteral with the current dosing strategies Potassium level 3 mmol/L or less administer Potassium Chloride 50 mEq Potassium level 3.1 to 3.3 mmol/L administer Potassium Chloride 40 mEq Potassium level 3.4 to 3.8 mmol/L administer Potassium Chloride 30 mEq Use central line when applicable. Recheck potassium level 1 hour after total IVPB infusion complete, With each potassium result continue the replacement orders as needed VESICANT (YELLOW) Infuse each 10 mEq over a minimum of 1 hour. sennosides-docusate sodium (SENOKOT-S) 8.6-50 mg 1 tablet 1 tablet, oral, Every 12 hours PRN, constipation, Starting on Tue08/29/24 at 2147 sodium chloride 0.9 % flush 10 mL 10 mL, intravenous, As needed, line care, Starting on Tue08/29/24 at [id number] (Given - Provider: Deepti Medley, ) sodium chloride 0.9 % radiology injection (COMPLETED) 80 mL, intravenous, Once in imaging, pre/post contrast, Starting on Tue08/29/24 at 1928, For 1 dose 1939 (Given - Provider: Deepti Medley, ) Linked Groups Order Group 1: potassium chloride (KLOR-CON M 20) CR tablet 30-40 mEqJump to med 30-40 mEq, oral, As needed, Potassium Supplementation, Starting on Tue08/29/24 at 2147, Progress to oral potassium replacement when patient tolerating oral intake. If dose administered, recheck potassium level 4 hours after last dose. For potassium level 3.4 to 3.8 mmol/L and GFR 30 mL/min or greater=30 mEq. For potassium level 3.1 to 3.3 mmol/L and GFR 30 mL/min or greater=40 mEq. For potassium level 3 mmol/L or less and GFR 30 mL/min or greater=50 mEq. Do not crush or chew. Or potassium chloride (KAYCIEL) 20 mEq/15 mL solution 30-40 mEqJump to med 30-40 mEq, oral, As needed, Potassium Supplementation, Starting on Tue08/29/24 at 2147, Progress to oral potassium replacement when patient tolerating oral intake. If dose administered, recheck potassium level 4 hours after last dose. For potassium level 3.4 to 3.8 mmol/L and GFR 30 mL/min or greater=30 mEq. For potassium level 3.1 to 3.3 mmol/L and GFR 30 mL/min or greater=40 mEq. For potassium level 3 mmol/L or less and GFR 30 mL/min or greater=50 mEq. Must dilute before use - Mix in 3-8 ounces of water or juice before administration When administering in feeding tube, flush before and after per policy and monitor potassium levels Or potassium chloride IVPB 10 mEq/100 mL in water (0.1 mEq/mL premix)Jump to med 10 mEq, intravenous, at 100 mL/hr, Administer over 60 Minutes, As needed, POTASSIUM REPLACEMENT, Starting on Tue08/29/24 at 2147, IV if unable to use oral/enteral with the current dosing strategies Potassium level 3 mmol/L or less administer Potassium Chloride 50 mEq Potassium level 3.1 to 3.3 mmol/L administer Potassium Chloride 40 mEq Potassium level 3.4 to 3.8 mmol/L administer Potassium Chloride 30 mEq Use central line when applicable. Recheck potassium level 1 hour after total IVPB infusion complete, With each potassium result continue the replacement orders as needed VESICANT (YELLOW) Infuse each 10 mEq over a minimum of 1 hour. documented in this encounter Additional Health Concerns Assessment Noted Time PHQ-9 Depression Total Score: 4 06/15/19 25 10:43 AM EDT documented as of this encounter Care Teams Pediatric Immunologist Relationship Specialty Start Date End Date Agusto Chambers DO [address] [place] [address], [address] [place] [id number] PCP - General Family Medicine 06/14/24 documented as of this encounter
--- OUTSIDE RECORDS SUMMARY | 2024-08-31 11:15 | XMS_ITS | Encounter Summary ---
Author Organization [facility] Address [id number] [place] [address] Care Team Providers Care Coal Grader Name Role Phone Agusto Chambers DO Primary Care Provider [phone] Reason for Visit * Reason Comments Follow-up Encounter Details Date Type Department Care Team (Late st Contact Info) Description 08/31/2024 11:15 AM EDT Office Visit Kristine Dumont 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); Metastatic non-small cell lung cancer (CMS-HCC) Social History Tobacco Use Types Packs/Day Years [...] Sign Reading Time Taken Comments Blood Pressure 125/75 08/31/2024 11:20 AM EDT Pulse 90 08/31/2024 11:20 AM EDT Temperature 36.7 C (98 F) 08/31/2024 11:20 AM EDT Respiratory Rate 20 08/31/2024 11:2 0 AM EDT Oxygen Saturation 94% 08/31/2024 11: 20 AM EDT Inhaled Oxygen Concentration - - Weight 111.4 kg (245 lb 9.6 oz) 025 11:20 AM EDT Height 185.4 cm (6' 0.99 ) 08/31/2024 1 1:20 AM EDT Body Mass Index 32.41 08/31/2024 11:20 AM EDT documented in this encounter Patient Instructions * Patient Instructions* Bryon Azevedo MD - 08/31/2024 11:15 AM EDT Give info on ramucirumab and docetaxel. F/u in 6 weeks. documented in this encounter Progress Notes * Bryon Azevedo MD - 08/31/2024 11:15 AM EDT Images from the original note were not included. [facility] 08/31/24 Arvin Rasmussen is a 44 y.o. year old male seen today in the oncology clinic. Chief Complaint Patient presents with Follow-up History of Present Illness: Mr. Rasmussen is a 44 y.o. 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 He was status post 4 cycles of carboplatin/paclitaxel, carboplatin with AUC of 6. After 4 cycles of combined treatment, he was maintained on Keytruda only. October 2022 showedexcellent response to treatment. Unfortunately February 2023 showed new left supraclavicular lymph node and mediastinal lymph node. Repeat CT scan of the neck and chest March 2023 showed further disease progression with enlarging subcarinal lymphadenopathy, left supraclavicular lymph nodes and new pulmonary nodules. The patient's last dose of Keytruda treatment was 06/13/2023. He request to hold treatment due to atrial fibrillation cardiac procedures. Carboplatin/paclitaxel was resumed 08/2023 (grade 3 skin rash from paclitaxel), was changed to carboplatin/Abraxane. Palliative radiation to the chest 01/2024- Systemic treatment with carboplatin and gemcitabine 06/2024 Interval history: Unfortunately the patient was told that he has not a candidate for any cardiac procedure for his atrial fibrillation. He was started on carboplatin/paclitaxel weekly only. Keytruda was declined by insurance because he has showed some disease progression while taking Keytruda maintenance. The patient developed significant skin rash over his hands lower extremity and mouth after 3 doses of weekly carbotaxol treatment. His treatment was changed to Abraxane carboplatin. The patient just completed a course of palliative radiation to his chest 02/2024, afterwards he received 2 months of Abraxane and carboplatin, last treatment was in April 2024. Due to disease progression he was changed to carboplatin/gemcitabine 06/2024. Initially he is responding well, he developed s ignificant shortness of breath and went to hospital August 2024. CT scan showed significant disease progression. Currently patient is on continuous oxygen. He told me he just had a severe asthma attack in the morning. His anxiety is much better controlled with Xanax and once a day Ativan. He usually takes 2 tablets of Xanax able to get out of his house losing some weight and doing some exercise. Breathing is better no significant shortness of breath. No headaches or vision change. No significant hemoptysis in the past 2 weeks. Past Medical History: Diagnosis Date Anxiety Hypertension Lung cancer (CMS-HCC) Shortness of breath Sleep apnea Visual impairment glasses Past Surgical History: Procedure Laterality Date CARDIAC PACEMAKER PLACEMENT 03/14/2024 PORTACATH PLACEMENT RELEASE CARPAL TUNNEL Left 11/20/2019 Performed by Shelton Rodriguez Jr., DO at [facility] RELEASE CARPAL TUNNEL Right 09/25/2019 Performed by Shelton Rodriguez Jr., DO at [facility] TONSILLECTOMY UVULOPALATOPHARYNGOPLASTY, BILATERAL INTERMURAL CAUTERY INFERIOR TURBINATES,OUTFRACTURES N/A 02/08/2017 Performed by Shira Patterson MD at [facility] Family History Problem Relation Age of Onset Heart disease Mother Hypertension Mother Heart disease Father Social History Socioeconomic History Marital status: Tobacco Use Smoking status: Former Current packs/day: 1.00 Types: Cigarettes Smokeless tobacco: Never Vaping Use Vaping status: Never Used Substance and Sexual Activity Alcohol use: No Drug use: Yes Types: Marijuana Comment: gummies Sexual activity: Defer Social Drivers of Health Financial Resource Strain: Medium Risk (08/30/2024) Overall Financial Resource Strain (CARDIA) Difficulty of Paying Living Expenses: Somewhat hard Food Insecurity: Food Insecurity Present (08/30/2024) Hunger Screening Food Insecurity - Worry: Sometimes True Food Insecurity - Inability: Sometimes True Transportation Needs: No Transportation Needs (08/30/2024) PRAPARE - Transportation Lack of Transportation (Medical): No Lack of Transportation (Non-Medical): No Physical Activity: Insufficiently Active (11/30/2023) Received from [facility] Exercise Vital Sign Days of Exercise per Week: 3 days Minutes of Exercise per Session: 30 min Interpersonal Safety: Not At Risk (08/30/2024) Humiliation, Afraid, Rape, and Kick questionnaire Fear of Current or Ex-Partner: No Emotionally Abused: No Physically Abused: No Sexually Abused: No Housing Instability: Low Risk (08/30/2024) Housing Instability Housing Instability: No Allergies Allergen Reactions Celecoxib Other reaction(s): GI Distress, Hives Metaxalone Other reaction(s): GI Distress Other Nausea And Vomiting and Other (See Comments) Other reaction(s): Hives Darvocet N 100 Medication List Accurate as of August 31, 2024 12:11 PM. If you have any questions, ask your nurse or doctor. Medications Continued This Visit * albuterol 90 mcg/actuation inhaler Quantity: 18 g Refills: 11 Doctor's comments: Please dispense whichever albuterol HFA product is preferred by patient insurance. 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 Cox 2 puffs, inhalation, Every 6 hours PRN Commonly known as: PROVENTIL HFA;VENTOLIN HFA * albuterol 90 mcg/actuation inhaler Quantity: 18 g Refills: 11 Doctor's comments: Please dispense whichever albuterol HFA product is preferred by patient insurance. 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 ([facility]-HCC) Dose: 1 mg Signed by: Bryon Azevedo 1 mg, oral, 2 times daily, TAKE 1 TABLET BY MOUTH EVERY MORNING AND 1 TABLET AT BEDTIME Commonly known as: XANAX amiodarone 200 mg tablet Refills: 0 Dose: 200 mg Commonly known as: PACERONE apixaban 5 mg tablet Quantity: 60 tablet Refills: 11 For diagnoses: Abnormal heart rhythm Dose: 5 mg Signed by: Marie Mainzinger, INTERNET ARCHITECT-DIRECTOR OF HOSPITALITY 5 mg, oral, 2 times daily Commonly known as: ELIPIPER buprenorphine-naloxone 8-2 mg per SL tablet Refills: 0 Dose: 1 tablet Commonly known as: SUBOXONE FARXIGA 10 mg tablet Refills: 0 Dose: 10 mg Generic drug: dapagliflozin propanediol guaiFENesin 600 mg tablet extended release 12hr Quantity: 60 tablet Refills: 1 Dose: 600 mg Signed by: Bryon Azevedo 600 mg, oral, Every 12 hours scheduled Commonly known as: MUCINEX LORazepam 1 mg tablet Quantity: 90 tablet Refills: 0 Doctor's comments: 30 Day Supply For diagnoses: 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 Read thedirections carefully, and ask your doctor or other care provider to review them with you. Medications Discontinued This Visit dexAMETHasone 4 mg tablet Commonly known as: DECADRON Stopped by: Bryon Azevedo ondansetron 8 mg tablet Commonly known as: ZOFRAN Stopped by: Bryon Azevedo prochlorperazine 10 mg tablet Commonly known as: COMPAZINE Stopped by: Bryon Azevedo Review of Symptoms: Review of Systems ECO- Symptomatic; in bed <50% of the day Physical Exam: General: Well appearing, in no acute distress. Vitals: BP 125/75 Pulse 90 Temp 36.7 °C (98 °F) (Oral) Resp 20 Ht 185.4 cm (6' 0.99 ) Wt 111.4 kg (245 lb 9.6 oz) SpO2 94% BMI 32.41 kg/m² Body mass index is 32.41 kg/m². Eyes: No icterus, no conjuctival erythema ENT: Pharyngeal mucosa was moist without exudate and inflammation or ulcerations. Tongue was midline and appeared normal.Gums were unremarkable. Lymph nodes: No palpable adenopathy Neck: Supple. There were no masses, tenderness. Trachea was midline. Respiratory: Respirations were non-labored. Lungs were clear to auscultation. There was no dullnessto percussion. Cardiac: Regular rate and rhythm, S1 and S2 sounds were normal. There were no rubs or gallops. Abdomen: Soft, non-tender, Nondistended. Bowel sounds audible in all four quadrants. There were no palpable masses. The liver and spleen were not enlarged. Extremities: There was no clubbing, Cyanosis, edema. Skin: There was no obvious rashes, bruising or ecchymosis. Skin rash over hands and lower extremity Back exam: No palpable tenderness was appreciated. Neurologic: There was no unilateral weakness. Mood and affect: Normal. Recent Imaging: IR biopsy lymph node Result Date: 05/31/2023 Narrative: Pre-procedure diagnosis: See history below Post-procedure diagnosis: Same as above Assistants/resident: See the technologist's notes above Consent/pre-procedure evaluation: See below. [place] protocol timeout verification performed. Estimated blood loss: Less than 10 mL Procedure/compli cations: See below Radiation dosage measurements: See below and see technologist's notes above Conscious sedation: If conscious sedation was administered, preprocedure evaluation for conscious sedation was performed and documented. History: needs biopsy of left supraclavicular lymph node adjacent to subclavian artery and brachial plexus. Lung cancer Procedure, after explanation of the procedure, indications, risks, benefits, and alternatives to biopsy under intravenous conscious sedation to thepatient, the patient gave consent. The risks that [...] PACS demonstrates uniform hypoechoic area with somewhat ill- defined margins adjacent tothe anterior scalene muscle, subclavian artery, and adjacent [...] lesion without immediate complication. Finalized by Alvin Santiago MD on 05/31/2023 3:03 PM Recent Labs: Recent Results (from the past 2 weeks) CBC auto differential Collection Time: 08/20/24 11:58 AM Result Value Ref Range WBC 8.0 4 - 11 x10E9/L RBC Count 4.17 4.1 - 5.7 X10E12/L Hemoglobin 12.3 (L) 13 - 17 g/dL Hematocrit 35.9 (L) 39 - 50 % MCV 86 80 - 100 fL MCH 29.4 27 - 34 pg MCHC 34.2 32 - 36 g/dL RDW 18.7 (H) 11.5 - 15 % Platelet Count 166 150 - 450 X10E9/L MPV 8.3 7 - 12 fL Neutrophils % 79.4 % Lymphocytes % 6.5 % Monocytes % 13.3 % Eosinophils % 0.4 % Basophils % 0.4 % Neutrophils Absolute (A) 6.4 1.5 - 6.6 10*3/uL Lymphocytes Absolute 0.5 (L) 1.0 - 3.5 10*3/uL Monocytes Absolute 1.1 (H) 0.0 - 0.9 10*3/uL Eosinophils Absolute 0.0 0.0 - 0.4 10*3/uL Basophils Absolute 0.0 0.0 - 0.2 10*3/uL Differential Type AUTOMATED DIFFERENTIAL Comprehensive metabolic panel Collection Time: 08/20/24 11:58 AM Result Value Ref Range SODIUM 133 (L) 134 - 146 mmol/L POTASSIUM 4.1 3.5 - 5.0 mmol/L CHLORIDE 103 98 - 109 mmol/L CARBON DIOXIDE 23 22 - 32 mmol/L ANION GAP 7 5 - 15 mmol/L BLOOD UREA NITROGEN 11 5 - 23 mg/dL CREATININE 0.91 0.70 - 1.20 mg/dL GLUCOSE 113 (H) 65 - 99 mg/dL CALCIUM 9.4 8.5 - 10.5 mg/dL TOTAL PROTEIN 7.6 6.0 - 8.0 g/dL ALBUMIN 3.8 3.2 - 5.3 g/dL ALKALINE PHOSPHATASE 94 39 - 130 U/L AST 37 <=41 U/L ALT 58 (H) <=40 U/L BILIRUBIN,TOTAL 1.0 0.3 - 1.2 mg/dL EGFR Non-Race Dependent >90 >=60 ml/min/1.73sq.m CBC auto differential Collection Time: 08/29/24 6:11 [...] - 2.6 mg/dL Troponin I, High Sensitivity 0 Hour Collection [...] Ref Range PROCALCITONIN 0.19 (H) <0.05 ng/mL Lactate w/ Reflex Collection Time: 08/29/24 10:08 PM Result Value Ref Range LACTATE W/REFLEX 1.5 0.4 - 2.0 mmol/L Comprehensive metabolic panel Collection Time: 08/30/24 5:01 [...] - 0.2 10*3/uL Differential Type AUTOMATED DIFFERENTIAL Diagnosis Problem list: Problem List Items Addressed This Visit Respiratory 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 cell carcinoma of lung, stage IV (CMS-HCC) - Primary Metastatic non-small cell lung cancer (CMS-HCC) Impression: Metastatic squamous cell carcinoma, no actionable mutations (guardant 360) Atrial fibrillation History of drug abuse on Suboxone Plan: I reviewed the patient's previous treatment history at [facility]. He received 4 cycles of carboplatin/paclitaxel/Keytruda. Carboplatin dose was AUC of 6. The patient's blood counts remains stable during the treatment. His most recent CT scan showed disease progression with enlarging mediastinal and supraclavicular lymphadenopathy. His repeat CT scan showed significant disease progression with enlarging mediastinal and hilar massand multiple new lung nodules Patient's brain MRI 07/2023 was unremarkable no evidence of intracranial metastasis. He has develops grade 3 drug reaction to paclitaxel. Treatment was changed to carboplatin/Abraxane. PDL1 study showed 5% expression. Resume tx 11/22/2023, CT scan end of 11/2023 showed pulmonary nodules has significant improved. Right hilar lymph node increased from 2.5 cm to 4.2. Borderline lymph nodes in the abdomen otherwise no significant progression in the. PET scan 12/2023 reviewed in details the patient's disease is mainly localized in the chest. Case discussed with radiation oncology, I think he will be good candidate for palliative radiation. He will have radiation treatment alone without chemotherapy. Patient will have pacemaker placement this week, hold treatment until early March to allow adequate recovery. Resume carboplatin/paclitaxel every 2 weeks from 03/27/24. Hold further treatment due to severe anxiety and cardiology procedure. Hold chemo for now due to anxiety. PET 05/2024 showed interval disease progression with residual hypermetabolic masslike disease in thesuperior right hilum or right lower paratracheal region with adjacent low-level activity related tothe posttherapy pneumonitis The patient was started on carboplatin/Gemzar 06/2024, unfortunately based on his CT angiogram August 2024, he had very significant disease progression. Plan to change his systemic treatment to ramcirumab/docetaxel. Previously he had allergic reaction to paclitaxel, there is a risk of recurrent reaction to docetaxel. Give info on ramucirumab and docetaxel. F/u in 6 weeks. Continue Ativan 1 mg twice a day as needed. Advise patient to establish care with psychiatry regarding his severe anxiety. Advise patient go to nearest ER if he developed significant hemoptysis. Thank you. Bryon Azevedo MD Please note that portions of this note were generated using voice recognition M*Modal dictation software. Although every effort was made to ensure the accuracy of this automated author agent, some errors in author agent may have occurred. CC: Patient Care Team: Agusto Chambers DO as PCP - General (Family Medicine) Bryon Azevedo MD as Consulting Physician (Hematology) PCP:Agusto Chambers Referring MD: Addison Ortiz MD documented in this encounter Plan of Treatment Upcoming Encounters Date Type Department Care Team (Late st Contact Info) Description 10/08/2024 1:45 PM EDT Office Visit [facility] [address] [place] [phone] Addison Cox MD [address] [place], [place] [id number] 10/12/2024 12:45 PM EDT Office Visit Kristine Dumont [facility] - Medical Oncology [address] [place] [phone] Bryon Azevedo MD [address] [place] [address] documented as of this encounter Goals Goal Patient Goal Type Associated Problems Recent Progress Patient-Stated? 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
[2024-09-10 23:49] VITALS: BP 109/76; PULSE 88; TEMP 36.4; O2SAT 86; BMI 31.7
[2024-09-10 23:52] VITALS: BP 109/76
[2024-09-10 23:54] VITALS: O2SAT 90
[2024-09-11] VITALS (115 sets, daily range): BP systolic 95–135; BP diastolic 63–85; PULSE 48–97; TEMP 36.1–36.8; O2SAT 87–98; BMI 30.3
--- NOTE | 2024-09-11 00:08 | ECG_ITS ---
[facility] Test Date: 2024-09-11 Pat Name: EVAN JULIEN Department: Room: - Gender: Male Helicopter Technician: : 1980 Requested By: [id number] Order Number: [id number] Reading MD: CARLEE HI M.D. Measurements Intervals [place] Rate: 83 P: -[id number] AK: -27787 QRS: -70 QRSD: 164 T: 82 QT: 454 QTc: 494 Interpretive Statements 1210 Atrial fibrillation 2330 Nonspecific intraventricular conduction block 3534 Lateral myocardial infarction, age undetermined 3633 Inferior myocardial infarction, probably old 9150 abnormal ECG Compared to ECG 11/04/2023 13:31:03 Myocardial infarct finding now present Right-axis deviation no longer present Electronically Signed On 09-12-2024 7:00:17 EDT by CARLEE HI M.D.
--- OUTSIDE RECORDS SUMMARY | 2024-09-11 00:08 | XMS_ITS ---
Author Name Auto Generated, Auto Generated Organization [facility] Address [address] [place] [address] Phone [phone] Care Team Providers Care Continuity Coordinator Name Role Phone Rere Clark Unavailable Angel Addison Vieyra Unavailable Functional Status No Results Mental Status No Results Allergies and Intolerances No Known Allergies Problems Active Concerns * Malignant neoplasm of overlapping sites of right bronchus and lung* Code: * Start Date: TueNov 21 00:00:00 EDT 2012 * End Date: * Text: Reason for Referral Past Medical History
--- OUTSIDE RECORDS SUMMARY | 2024-09-11 00:09 | XMS_ITS | Encounter Summary ---
Author Organization [facility] Address [address] [place] [address] Phone Care Team Providers Care Manager Mobility Name Role Phone Generic Provider, No Assigned Pcp Primary Car e Provider Unavailable Encounter Details Date Type Department Care Team (Late st Contact Info) Description 06/28/2022 Orders Only [facility] [address] [place] [address] Conversion, Onbase Social History Tobacco Use Types Packs/Day Years Used Date Smoking Tobacco: Never Assessed PHQ-2 Answer Date Recorded Patient Health Questionnaire-2 Score 4 03/03/2022 Sex and Gender Information Value Date Recorded Sex Assigned at Not on file Legal Sex Male 3:14 PM EST Gender Identity Not on file Sexual Orientation Not on file documented as of this encounter Plan of Treatment Scheduled Orders Name Type Priority Associated Diagnoses Orde r Schedule OUTSIDE LAB SCAN Lab Ordered: 06/28/2022 OUTSIDE LAB SCAN Lab Ordered: 06/28/2022 documented as of this encounter Visit Diagnoses Not on filedocumented in this encounter Additional Health Concerns Assessment Noted Time PHQ-9 Depression Total Score: 023 2:13 PM EST documented as of this encounter Care Teams Manager Mobility Relationship Specialty Start Date End Date Generic Provider, No Assigned PcpMD PCP - General Family Medicine 01/01/23 documented as of this encounter
--- NOTE | 2024-09-11 00:10 | ED_ITS ---
HPI - SOB/Dyspnea General Chief Complaint: Shortness of Breath/Dyspnea Stated Complaint: DIFFICULTY BREATHING Time Seen by Provider: 09/10/24 23:51 Source: patient Mode of arrival: ambulance Limitations: no limitations History of Present Illness HPI Narrative: ex smoker. Past history of HFpEF, A. fib and stage IV lung CA for past 3 years. States he is receiving chemotherapy but recent evidence the cancer has enlarged despite chemo and he is waiting for insurance to approve a different chemotherapy. Started on supplemental 02 last week because of shortness of breath. States over past 2-3 days more short of breath with minimal exertion. Light headed in the shower. No chest pain but presents via Squad because of his shortness of breath. Given duoneb en route and it has helped some. He is normally on 3L NC. Arrives on 5L NC with pulse ox 93%. RA pulse ox 86%. last course of chemo 3 weeks ago Related Data Home Medications �Medication �Instructions �Recorded �Confirmed albuterol sulfate 90 mcg/actuation 2 puff inhalation Q 6H PRN 11/02/23 09/10/24 aerosol inhaler shortness of breath or wheez ing apixaban 5 mg tablet (Eliquis) 5 mg PO Q12H 11/02/23 0 09/10/24 buprenorphine 8 mg-naloxone 2 mg 1 film sublingual BID 11/02/23 09/10/24 sublingual film diltiazem HCl 30 mg tablet 30 mg PO BID 11/02/2311/01 hydroxyzine pamoate 50 mg capsule 50 mg PO .QHS PRN an xiety 11/02/23 11/02/23 alprazolam 1 mg tablet mg 09/10/24 amiodarone 200 mg tablet mg 09/10/24 dapagliflozin propanediol 10 mg mg 09/10/24 tablet (Farxiga) furosemide 40 mg tablet mg 09/10/24 lorazepam 1 mg tablet mg 09/10/24 losartan 25 mg tablet mg 09/10/24 metoprolol succinate 100 mg mg PO 09/10/24 tablet,extended release 24 hr metoprolol succinate 50 mg mg PO 09/10/24 tablet,extended release 24 hr spironolactone 25 mg tablet mg 09/10/24 Allergies Allergy/AdvReac Type Severity Reaction Status Date / Time acetaminophen (From AdvReac Intermediate Nausea Verified 09/10/24 23:54 Darvocet-N) propoxyphene (From AdvReac Intermediate Nausea Verified 09/10/24 23:54 Darvocet-N) Review of Systems ROS Status of ROS 10 or more systems reviewed and unremark able except as noted in history and below [facility] Medical History (Updated 09/11/24 @ 06:38 by Ted Corey MD) Immunosuppressed due to chemotherapy �D84.821 - Immunodeficiency due to drugs (ICD-10) �T45.1X5A - Adverse effect of antineoplastic and immunosuppressive drugs, initial encounter (ICD-10) �Z79.899 - Other terminal gauger (current) drug therapy (ICD-10) Opioid use disorder in remission �F11.91 - Opioid use, unspecified, in remission (ICD-10) (HFpEF) heart failure with preserved ejection fraction �I50.30 - Unspecified diastolic (congestive) heart failure (ICD-10) Obesity �E66.9 - Obesity, unspecified (ICD-10) Squamous cell carcinoma of lung, stage IV �C34.90 - Malignant neoplasm of unspecified part of unspecified bronchus or lung (ICD-10) Social History Highest level of school completed/degree received: some college, no degree Little interest or pleasure in doing things: not at all Feeling down, depressed, or hopeless: not at all Do you think of yourself as: straight/heterosexual Gender Identity: male Exam Constitutional Vital Signs, click to edit/add: Last Vital Signs Temp 97.6 F 09/10/24 23:49 Pulse 80 09/11/24 01:40 Resp 20 09/11/24 03:23 BP 95/69 09/11/24 06:00 Pulse Ox 94 L 09/11/24 06:00 O2 Del Method Nasal Cannula 09/11/24 02:31 O2 Flow Rate 5 09/11/24 02:31 Common normals: average body habitus, oriented x3, no limitations and alert General appearance: in distress (mild respiratory distress) and appears older than stated age [facility] Common normals: normocephalic and head/scalp atraumatic Eye Common normals: PERRL, EOMs intact bilaterally and conjunctivae normal Respiratory Other: diminished breath sounds. mild exp wheeze right chest Cardio Common normals: regular rate, regular rhythm, S1 normal heart sound and S2 normal heart sound GI Common normals: Normal to inspection, nondistended, normoactive bowel sounds present, soft to palpation and non-tender Extremity Common normals: normal to inspection Neuro Common normals: oriented x3, CN's II-XII intact bilaterally, moves all extremities and no focal motor deficits Psych Appearance: grossly normal Course Vital Signs Vital signs: Vital Signs Temperature 97.6 F 09/10/24 23:49 Pulse Rate 88 09/10/24 23:49 Respiratory Rate 24 H 09/10/24 23:49 Blood Pressure 109/76 09/10/24 23:49 Pulse Oximetry 86 L 09/10/24 23:49 Oxygen Delivery Method Room Air 09/10/24 23:49 Temperature 97.6 F 09/10/24 23:49 Pulse Rate 80 09/11/24 01:40 Respiratory Rate 20 09/11/24 03:23 Blood Pressure 95/69 09/11/24 06:00 Pulse Oximetry 94 L 09/11/24 06:00 Oxygen Delivery Method Nasal Cannula 09/11/24 02:31 Oxygen Delivery Flow Rate 5 09/11/24 02:31 MDM - SOB/Dyspnea MDM Narrative Medical decision making narrative: patient with stage IV lung CA managed by [facility] oncology. Has been treated with chemo. Informed last 1-2 weeks ago that chemo was not working and that his disease had progressed. Started on supplemental 02 3L NC 7-10 days ago. Now presents via Squad with worsening shortness of breath with little exertion. Light headed when trying to take a shower. No chest pain. Arrives via Squad on 5L NC with pulse ox 93%. given duoneb enroute. exam with mild wheeze treated with solumedrol. Cxray with large right hilar mass and diffuse bilat ground glass opacities concerning for pneumonia. blood cx ordered along with dose of Rocephin and vanco. Oncologist paged. Discussed with Oncologist at [facility] Dr Salinas who feels the patient can be managed here. That Oncology would not have any additional treatment intervention at this time. Main goal is to improve his respiratory symptoms. Discussed with hospitalist who would like CTA chest before accepting admission. CTA pending at change of shift. Care transferred to oncoming physician Dr Mohr Lab Data Labs: Lab Results 09/11/24 09/11/24 Range/Units 00:30 00:42 WBC 8.6 (4.0-11.0) 10^3/uL RBC 4.10 L (4.70-6.10) 10^6/uL Hgb 11.8 L (14.0-18.0) g/dL Hct 36.3 L (42.0-54.0) % MCV 88.5 (80.0-94.0) fL MCH 28.8 (25.9-34.0) pg MCHC 32.5 (29.9-35.2) g/dL RDW 16.8 H (11.0-15.0) % Plt Count 358 (150-450) 10^3/uL MPV 9.0 L (9.5-13.5) fL Neut % (Auto) 77.8 H (43.0-75.0) % Lymph % (Auto) 6.1 L (20.5-60.0) % [place] % (Auto) 14.9 H (1.7-12.0) % Eos % (Auto) 0.1 L (0.9-7.0) % Baso % (Auto) 0.5 (0.2-2.0) % Neut # (Auto) 6.7 H (1.4-6.5) 10^3/uL Lymph # (Auto) 0.5 L (1.2-3.8) 10^3/uL [place] # (Auto) 1.3 H (0.3-0.8) 10^3/uL Eos # (Auto) 0.0 (0.0-0.7) 10^3/uL Baso # (Auto) 0.0 (0.0-0.1) 10^3/uL Abs Immat Gran (auto) 0.05 H (0.00-0.03) 10^3/uL Imm/Tot Granulo (auto) 0.6 H (0.0-0.5) % Sodium 138 (136-145) mmol/L Potassium 3.7 (3.5-5.1) mmol/L Chloride 100 (98-107) mmol/L Carbon Dioxide 28.7 (21.0-32.0) mmol/L Anion Gap 13.0 BUN 9.0 (7.0-18.0) mg/dL Creatinine 0.88 (0.70-1.30) mg/dL Est GFR ( Amer) >60 (>=60 mL/min/1.73m^2) Est GFR (Non-Af Amer) >60 (>=60 mL/min/1.73m^2) BUN/Creatinine Ratio 10.2 Glucose 124 H (74-106) mg/dL Lactate 1.5 (0.4-2.0) mmol/L Calcium 10.5 H (8.5-10.1) mg/dL Troponin I High Sens 8.3 (4.0-76.1) pg/mL NT-Pro-B Natriuret Pep 515.0 H (<=450.0) pg/mL Discharge Plan Discharge Patient Disposition: Still a Patient
--- OUTSIDE RECORDS SUMMARY | 2024-09-11 00:10 | XMS_ITS | Encounter Summary ---
Author Organization [facility] Address [address] [place] [address] Care Team Providers Care Healthcare Customer Service Name Role Phone Unavailable Primary Care Provider Unavailabl e Encounter Details Date Type Department Care Team (Late st Contact Info) Description 10/08/2022 Abstract [facility] [address] [place] [phone] [place] [address] [place] [address] Social History Tobacco Use Types Packs/Day Years Used Date Smoking Tobacco: Never Assessed Sex and Gender Information Value Date Recorded Sex Assigned at Not on file Legal Sex Male 10:58 PM EDT Gender Identity Not on file Sexual Orientation Not on file documented as of this encounter Plan of Treatment Not on file documented as of this encounter Visit Diagnoses Not on filedocumented in this encounter
--- OUTSIDE RECORDS SUMMARY | 2024-09-11 00:10 | XMS_ITS | Clinical Summary ---
Author Organization [facility] Address [address] [place] [address] Care Team Providers Care Director Business Management Name Role Phone Phys, Self-Refer Or No Pcp/Referring Primary Car e Provider Unavailable Allergies Active Allergy Reactions Criticality Noted Date Comments Celecoxib GI Distress,Hives 01/26/2011 Metaxalone GI Distress 01/26/2011 Naproxen Nausea And Vomiting Low 07/16/2012 Other Allergen Other (See Comments),Hives,Nausea And Vomiting 07/24/2004 Darvocet N 100 Medications oxymetazoline (AFRIN) 0.05 % Cameron, Non-Aerosol Cameron 2 sprays into the nose two times daily. Active omeprazole (PriLOSEC) 20 mg delayed release capsule Take 1 capsule (20 mg) by mouth once daily, 30 min prior to meal. 30 capsule 2 04/03/2020 Active aspirin 81 mg chewable tablet Chew 1 tablet (81 mg) and swallow once daily. 90 tablet 4 04/02/2020 Active furosemide (LASIX) 20 mg tablet Take 1 tablet (20 mg) by mouth once daily. HOLD for weight loss >3lbs in one day or >5lbs in one week. 90 tablet 04/02/2020 Active lisinopriL 10 mg tablet Take 1 tablet (10 mg) by mouth once daily. 90 tablet 04/02/2020 Active potassium chloride (KLOR-CON 10) 10 mEq CR tablet Take 1 tablet (10 mEq) by mouth once daily. 90 tablet 04/02/2020 Active Active Problems Problem Noted Date Diagnosed Date [place] (dyspnea on exertion) 04/02/2020 Pre-diabetes 04/02/2020 Leg edema 04/02/2020 Acute heart failure with pre served ejection fraction (HFpEF) 04/02/2020 Obesity 04/02/2020 Hypertension 04/02/2020 Lung nodules 04/02/2020 Chest pain 04/01/2020 Family History Medical History Relation Name Comments Heart disease Brother Heart disease Father Relation Name Status Comments Brother Father Social History Tobacco Use Types Packs/Day Years Used Date Smoking Tobacco: Every Day Cigarettes 1 30 Smokeless Tobacco: Current Chew Tobacco Cessation:Ready to Q uit: Yes; Counseling Given: No Alcohol Use Standard Drinks/Week Comments Yes 0 (1 standard drink = 0.6 oz pur e alcohol) Sex and Gender Information Value Date Recorded Sex Assigned at Not on file Legal Sex Male 11:38 PM EST Gender Identity Not on file Sexual Orientation Not on file 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 Not on file Not on file Last Filed Vital Signs Vital Sign Reading Time Taken Comments Blood Pressure 144/86 04/02/2020 12:18 PM EST Pulse 98 04/02/2020 12:18 PM EST Temperature 36.7 C (98.1 F) 04/02/2020 12:18 PM EST Respiratory Rate 18 04/02/2020 12:18 PM EST Oxygen Saturation 95% 04/02/2020 12:18 PM EST Inhaled Oxygen Concentration - - Weight 138.3 kg (305 lb) 04/02/2020 6:09 AM EST Height 185.4 cm (6' 1 ) 04/01/2020 12:42 AM EST Body Mass Index 40.24 04/01/2020 12:42 AM EST Plan of Treatment Health Maintenance Due Date Last Done Comments Cologuard (average risk only) 1978 Colonoscopy 1978 Colorectal Cancer Screening 1978 FIT (average risk only) 1978 Hepatitis C Screening 1978 DTaP,Tdap,and Td Vaccines (1 - Tdap) 1997 Hepatitis B Vaccine ages 19 years and older (1 of 3 - 19+ 3-dose series) 1997 COVID-19 Vaccine (2023-2 5 season) 2023 Influenza Vaccine (#1) 2024 Respiratory Syncytial Virus (RSV) or ages 60 years and older (1 - 1-dose 75+ series) 2053 Pneumococcal Combined Aged Out No kat mae eligible based on patient's age to complete this topic Respiratory Syncytial Virus (RSV) ages 0 thru 19 months Aged Out No longer eligible based on patient's age to complete this topic Insurance [facility] MEDICAID OUT OF STATE Advance Directives * Full Code (Latest Code Status on File) Date Activated Date Inactivated Comments 04/01/2020 12:49 AM 04/02/2020 6:36 PM Question Answer Comments Attending Consulted: TJ SMALLWOOD Care Teams Director Business Management Relationship Specialty Start Date End Date Phys, Self-Refer Or No Pcp/Referring PCP - General 03/31/20
--- OUTSIDE RECORDS SUMMARY | 2024-09-11 00:10 | XMS_ITS | Encounter Summary ---
Author Organization [facility] Address [address] [place] [address] Care Team Providers Care Patriot Missile Air Defense Artillery Name Role Phone Unavailable Primary Care Provider Unavailabl e Encounter Details Date Type Department Care Team (Late st Contact Info) Description 08/27/2022 Abstract [facility] [address] [place] [phone] [place] [address] [place] [address] Social History Tobacco Use Types Packs/Day Years [...]
--- OUTSIDE RECORDS SUMMARY | 2024-09-11 00:10 | XMS_ITS | Encounter Summary ---
Author Organization [employer] Address [id number] [address] [place] [address] Care Team Providers Care General Office Associate Name Role Phone Agusto Chambers DO Primary Care Provider [phone] Encounter Details Date Type Department Care Team (Late st Contact Info) Description 06/25/2024 Orders Only [facility] H[facility] On[facility], A Department of [address] [address] Bryon Azevedo MD [address] [place], [place] [id number] Social History Tobacco Use Types Packs/Day Years Used Date Smoking Tobacco: Former Cigarettes Smokeless Tobacco: Never Alcohol Use Standard Drinks/Week Comments No 0 (1 standard drink = 0.6 oz pur e alcohol) Overall Financial Resource Strain (CARDIA) Answe r Date Recorded How hard is it for you to pa y for the very basics like food, housing, medical care, and heating? Hard 09/09/2023 PHQ-2 Answer Date Recorded Total Score 4 06/14/2024 PRAPARE - Transportation Answer Date Re corded In the past 12 months, has l ack of transportation kept you from medical appointments or from getting medications? No 08/21 In the past 12 months, has l ack of transportation kept you from meetings, work, or from getting things needed for daily living? No 09/09/2023 Housing Instability Answer Date Recorde d Are you worried or concerned that in the next two months you may not have stable housing that you own, rent or stay in as a part of a household? No 09/09/2023 Childcare Answer Date Recorded Childcare Unknown 08/02/2018 Employment Answer Date Recorded Employment Unknown 08/02/2018 Hunger Screening Answer Date Recorded Within the past 12 months we worried whether our food would run out before we got money to buy more. Never True 06/29/2024 Within the past 12 months th e food we bought just didn't last and we didn't have money to get more. Never True 06/29/2024 Purpose - Life Answer Date Recorded Purpose and direction in life Unknown Sex and Gender Information Value Date Recorded Sex Assigned at Not on file Legal Sex Male 12:03 PM EDT Gender Identity Not on file Sexual Orientation Not on file documented as of this encounter Plan of Treatment Upcoming Encounters Date Type Department Care Team (Late st Contact Info) Description 10/08/2024 1:45 PM EDT Office Visit [facility] Pulmonary[facility]Sleep [facility] [address] [address] Addison Cox MD [address] [facility] [place], [place] [id number] 10/12/2024 12:45 PM EDT Office Visit [facility] - Medical Oncology [address] [place] [phone] Bryon Azevedo MD [address] [place], [place] [phone] documented as of this encounter Visit Diagnoses Not on filedocumented in this encounter Additional Health Concerns Assessment Noted Time PHQ-9 Depression Total Score: 4 06/15/19 25 10:43 AM EDT documented as of this encounter Care Teams General Office Associate Relationship Specialty Start Date End Date Agusto Chambers DO [address] [place] [address], [place] [address] PCP - General Family Medicine 06/14/24 documented as of this encounter
--- OUTSIDE RECORDS SUMMARY | 2024-09-11 00:10 | XMS_ITS | Encounter Summary ---
Author Organization [facility] Address [address] [place] [address] Phone Care Team Providers Care Tub Mender Name Role Phone Generic Provider, No Assigned Pcp Primary Car e Provider Unavailable Encounter Details Date Type Department Care Team (Late st Contact Info) Description 05/31/2022 Orders Only [facility] [address] [place] [address] Conversion, Onbase Social History Tobacco Use Types [...] r Schedule OUTSIDE LAB SCAN Lab Ordered: 05/31/2022 documented as of this encounter Visit Diagnoses Not on filedocumented in this encounter Additional Health Concerns Assessment Noted Time PHQ-9 Depression Total Score: 023 2:13 PM EST documented as of this encounter Care Teams Tub Mender Relationship Specialty Start Date End Date Generic Provider, No Assigned PcpMD PCP - General Family Medicine 01/01/23 documented as of this encounter
--- OUTSIDE RECORDS SUMMARY | 2024-09-11 00:10 | XMS_ITS | Encounter Summary ---
Author Organization [employer] Address [id number] [address] [place] [address] Care Team Providers Care Broke Beater Name Role Phone Agusto Chambers DO Primary Care Provider [phone] Encounter Details Date Type Department Care Team (Late st Contact Info) Description 08/15/2023 Orders Only [facility] [address] [place] [phone] Bryon Azevedo MD [address] [place] [address] Social History Tobacco Use Types Packs/Day Years Used Date Smoking Tobacco: Former Cigarettes Smokeless Tobacco: Never Alcohol Use Standard Drinks/Week Comments No 0 (1 standard drink = 0.6 oz pur e alcohol) PHQ-2 Answer Date Recorded Total Score 1 09/11/2019 Childcare Answer Date Recorded Childcare Unknown 08/02/2018 Employment Answer Date Recorded Employment Unknown 08/02/2018 Hunger Screening Answer Date Recorded Within the past 12 months we worried whether our food would run out before we got money to buy more. Never True 06/28/2022 Within the past 12 months th e food we bought just didn't last and we didn't have money to get more. Never True 06/28/2022 Purpose - Life Answer Date Recorded Purpose [...] Office Visit [facility] [address] [place] [phone] Addison Cox MD [address] [facility] [place] [address] 10/12/2024 12:45 PM EDT Office Visit [facility] - Medical Oncology [address] [place] [phone] Bryon Azevedo MD [address] [place], [place] [phone] documented as of this encounter Visit Diagnoses Not on filedocumented in this encounter Additional Health Concerns Assessment Noted Time PHQ-9 Depression Total Score: 1 09/11/19 20 1:53 PM EDT documented as of this encounter Care Teams Broke Beater Relationship Specialty Start Date End Date Agusto Chambers DO [address] [place] [address], [address] [place], [place] [phone] PCP - General Family Medicine 06/14/24 documented as of this encounter
--- OUTSIDE RECORDS SUMMARY | 2024-09-11 00:10 | XMS_ITS | Encounter Summary ---
Author Organization [facility] Address [address] [place] [address] Care Team Providers Care Area Representative Name Role Phone Unavailable Primary Care Provider Unavailabl e Encounter Details Date Type Department Care Team (Late st Contact Info) Description 12/31/2022 Abstract [facility] [address] [place] [phone] [place] [address] [place] [address] Social History Tobacco Use Types Packs/Day Years [...]
--- OUTSIDE RECORDS SUMMARY | 2024-09-11 00:10 | XMS_ITS | Encounter Summary ---
Author Organization [employer] Address [id number] [address] [place] [address] Care Team Providers Care Yeast Tender Name Role Phone Agusto Chambers DO Primary Care Provider [phone] Encounter Details Date Type Department Care Team (Late st Contact Info) Description 02/13/2024 Orders Only [facility] - Medical Oncology [address] [place] [address] Shanita Schwab, THERESA Social History Tobacco Use Types Packs/Day Years [...] 09/09/2023 PHQ-2 Answer Date Recorded Total Score 1 09/11/2019 PRAPARE - Transportation Answer Date Re corded [...] got money to buy more. Never True 11/22/2023 Within the past 12 months th e food we bought just didn't last and we didn't have money to get more. Never True 11/22/2023 Purpose - Life Answer Date Recorded Purpose and direction in life Unknown Sex and Gender Information Value Date Recorded Sex Assigned at Not on file Legal Sex Male 12:03 PM EDT Gender Identity Not on file Sexual Orientation Not on file documented as of this encounter Plan of Treatment Upcoming Encounters Date Type Department Care Team ([facility] st Contact Info) Description 10/08/2024 1:45 PM EDT Office Visit [facility] [address] [place] [phone] Addison Cox MD [address] [facility] [place], [place] [phone] 10/12/2024 12:45 PM EDT Office Visit [facility] - Medical Oncology [address] [place] [phone] [place] [address] [place] [address] [address] [place] [address] documented as of this encounter Visit Diagnoses Not on filedocumented in this encounter Additional Health Concerns Assessment Noted Time PHQ-9 Depression Total Score: 1 09/11/19 20 1:53 PM EDT documented as of this encounter Care Teams Yeast Tender Relationship Specialty Start Date End Date Agusto Chambers DO [address] [place] [address], [facility], [address] [place], [place] [phone] PCP - General Family Medicine 06/14/24 documented as of this encounter
--- OUTSIDE RECORDS SUMMARY | 2024-09-11 00:10 | XMS_ITS | Clinical Summary ---
Author Organization [facility] Address [address] [place] [address] Phone Care Team Providers Care Rfid Manager Name Role Phone Generic Provider, No Assigned Pcp MD Primary Car e Provider Unavailable Allergies Active Allergy Reactions Criticality Noted Date Comments Metoprolol Succinate Drowsiness 09/20/2023 fatigue Medications buprenorphine-nal oxone (Suboxone) 8-2 mg SL tablet 1 tablet 2 times a day. Active apixaban (Eliquis) 5 mg tabletIndications :Paroxysmal atrial fibrillation (Multi) Take 1 tablet (5 mg) by mouth 2 times a day. 180 tablet 1 05/17/2023 Active furosemide (Lasix) 20 mg tablet Take 1 tablet (20 mg) by mouth once daily. Active carvedilol (Coreg) 3.125 mg tabletIndications :Hypertension, unspecified type Take 1 tablet (3.125 mg) by mouth 2 times daily (morning and late afternoon). 180 tablet 3 09/23/2023 09/23/19 25 Active prochlorperazine (Compazine) 10 mg tablet Take 1 tablet (10 mg) by mouth every 6 hours if needed. 11/01/2023 Active Active Problems Problem Noted Date Diagnosed Date Persistent atrial fibrillation (Multi) Lung cancer (Multi) 11/02/2023 Shortness of breath 11/02/2023 BMI 37.0-37.9, adult 05/17/2023 Former smoker 05/17/2023 High risk medication use 05/17/2023 HTN (hypertension) 10/27/2022 Sleep apnea 10/27/2022 Muscle cramp 10/27/2022 Resolved Problems Problem Noted Date Diagnosed Date Resolved Date Preop cardiovascular exam 05/17/2023 CHF (congestive heart failure) 10/27/2022 11/02/2023 Class 2 obesity with body ma ss index (BMI) of 38.0 to 38.9 in adult 10/27/2022 05/17/2023 Paroxysmal atrial fibrillation (Multi) 10/27/2022 11/02/2023 Immunizations Immunization Administration Dates Next Due DTP 10/12/2021 Tdap vaccine, age 7 year and older (BOOSTRIX, AD ACEL) 08/05/2014 Family History Medical History Relation Name Comments cardiac disorder Brother cardiac disorder Father heart problem Mother Relation Name Status Comments Brother Father Mother Social History Tobacco Use Types Packs/Day Years Used Date Smoking Tobacco: Former Cigarettes Q uit: 04/2022 Smokeless Tobacco: Current Chew Tobacco Cessation:Ready to Q uit: Yes; Counseling Given: Yes Alcohol Use Standard Drinks/Week Comments Never 0 (1 standard drink = 0.6 oz pur e alcohol) PHQ-2 Answer Date Recorded Patient Health Questionnaire-2 Score 1 12/01/2022 Sex and Gender Information Value Date Recorded Sex Assigned at Not on file Legal Sex Male 3:14 PM EST Gender Identity Not on file Sexual Orientation Not on file Last Filed Vital Signs Vital Sign Reading Time Taken Comments Blood Pressure 102/80 11/02/2023 2:00 PM EDT Pulse 92 11/02/2023 2:00 PM EDT Temperature - - Respiratory Rate - - Oxygen Saturation - - Inhaled Oxygen Concentration - - Weight 130 kg (287 lb) 11/02/2023 2:00 PM EDT Height 185.4 cm (6' 1 ) 11/02/2023 2:00 PM EDT Body Mass Index 37.87 11/02/2023 2:00 PM EDT Plan of Treatment Health Maintenance Due Date Last Done Comments CT Colonography 1978 Colonoscopy 1978 Colorectal Cancer Screening 1978 Creatinine Level 1978 FIT-DNA (Cologuard) 1978 FIT 1978 HIV Screening 1978 Potassium Level 1978 Sigmoidoscopy 1978 Yearly Adult Physical 1978 MMR Vaccines (1 of 1 - Standard series) 1979 Hepatitis C Screening 01/18/1996 Hepatitis B Vaccines (1 of 3 - 19+ 3-dose series) 1997 Diabetes Screening 09/13/2020 09/14/2019 COVID-19 Vaccine (1 - 2023-2 5 season) 2023 Influenza Vaccine (#1) 2024 Echocardiogram 11/01/2024 11/02/2023, 01/07/2023, 07/15/2022 Lipid Panel 04/01/2025 04/01/2020 Zoster Vaccines (1 of 2) 01/18/2028 DTaP/Tdap/Td Vaccines (3 - T d or Tdap) 10/13/2031 10/12/2021, 08/05/2014 HIB Vaccines Aged Out No longer eligi ble based on patient's age to complete this topic HPV Vaccines Aged Out No longer eligi ble based on patient's age to complete this topic Hepatitis A Vaccines Aged Out No long er eligible based on patient's age to complete this topic IPV Vaccines Aged Out No longer eligi ble based on patient's age to complete this topic Meningococcal Vaccine Aged Out No kat mae eligible based on patient's age to complete this topic Pneumococcal Vaccine: Pediatrics and At-Risk Adult Patients Aged Out No longer eligible b ased on patient's age to complete this topic Rotavirus Vaccines Aged Out No longer eligible based on patient's age to complete this topic Procedures Procedure Name Priority Date/Time Associated Diagnosis Comments ECHOCARDIOGRAM 11/02/2023 from Last 3 Months or Most Recently Relevant to Health Maintenance Results * Echocardiogram (11/02/2023) Narrative 11/02/2023 Ordered by an unspecified provider. us Generic Provider Scanning CV ECHO PROCEDURES Fin al Result from Last 3 Months or Most Recently Relevant to Health Maintenance Insurance [address] [place] [address] [facility] Care Teams Rfid Manager Relationship Specialty Start Date End Date Generic Provider, No Assigned Pcp, PCP - General Family Medicine 01/01/23
--- OUTSIDE RECORDS SUMMARY | 2024-09-11 00:10 | XMS_ITS | Encounter Summary ---
Author Organization [employer] Address [id number] [address] [place] [address] Care Team Providers Care Photocomposing Keyboard Operator Name Role Phone Agusto Chambers DO Primary Care Provider [phone] Encounter Details Date Type Department Care Team (Late st Contact Info) Description 08/10/2023 Orders Only [facility] [address] [place] [phone] Bryon Azevedo MD [address] [place] [address] Social History Tobacco Use Types [...] Physicians Pulmonary/Sleep Medicine [address] [place] [phone] Addison Cox MD [address] [facility] [place] [address] 10/12/2024 12:45 PM EDT Office Visit [facility] - Medical Oncology [address] [place] [phone] Bryon Azevedo MD [address] [place], [place] [phone] documented as of this encounter Visit Diagnoses Not on filedocumented in this encounter Additional Health Concerns Assessment Noted Time PHQ-9 Depression Total Score: 1 09/11/19 20 1:53 PM EDT documented as of this encounter Care Teams Photocomposing Keyboard Operator Relationship Specialty Start Date End Date Agusto Chambers DO [address] [place] [address], [address] [place], [place] [phone] PCP - General Family Medicine 06/14/24 documented as of this encounter
--- OUTSIDE RECORDS SUMMARY | 2024-09-11 00:10 | XMS_ITS | Clinical Summary ---
Author Organization [facility] Address [address] [facility] [place] [address] Care Team Providers Care Road Maker Name Role Phone Unavailable Primary Care Provider Unavailabl e Allergies Active Allergy Reactions Criticality Noted Date Comments Celecoxib Hives 07/16/2012 Naproxen Nausea And Vomiting Low 07/16/2012 Medications ibuprofen (ADVIL;MOTRIN) 400 MG tablet Take 400 mg by mouth every 6 hours as needed. Active ibuprofen (IBU) 600 MG tablet Take 1 tablet by mouth every 6 hours as needed for Pain for 30 doses. 30 tablet 0 07/17/2012 Active traMADol (ULTRAM) 50 MG tablet Take 1 tablet by mouth every 6 hours as needed for Pain for 10 doses. 10 tablet 0 07/17/2012 Active Social History Tobacco Use Types Packs/Day Years Used Date Smoking Tobacco: Every Day Cigarettes Alcohol Use Standard Drinks/Week Comments No 0 (1 standard drink = 0.6 oz pur e alcohol) Sex and Gender Information Value Date Recorded Sex Assigned at Not on file Legal Sex Male 6:46 PM EST Gender Identity Not on file Sexual Orientation Not on file Last Filed Vital Signs Vital Sign Reading Time Taken Comments Blood Pressure 137/91 07/17/2012 12:36 AM EDT Pulse 94 07/17/2012 12:36 AM EDT Temperature 36.9 C (98.4 F) 07/16/2012 10:46 PM EDT Respiratory Rate 14 07/16/2012 10:46 PM EDT Oxygen Saturation 98% 07/16/2012 10:46 PM EDT Inhaled Oxygen Concentration - - Weight 108.9 kg (240 lb) 07/16/2012 10:46 PM EDT Height - - Body Mass Index - - Plan of Treatment Not on file
--- OUTSIDE RECORDS SUMMARY | 2024-09-11 00:10 | XMS_ITS | Encounter Summary ---
Author Organization [facility] Address [address] [place] [address] Care Team Providers Care Forest Pathology Professor Name Role Phone Unavailable Primary Care Provider Unavailabl e Encounter Details Date Type Department Care Team (Late st Contact Info) Description 12/08/2022 Abstract [facility] [address] [place] [phone] [place] [address] [place] [address] Social History Tobacco Use Types Packs/Day Years [...]
--- OUTSIDE RECORDS SUMMARY | 2024-09-11 00:10 | XMS_ITS | Encounter Summary ---
Author Organization [employer] Address [id number] [address] [place] [address] Care Team Providers Care Rotor Winder Name Role Phone Agusto Chambers DO Primary Care Provider [phone] Encounter Details Date Type Department Care Team (Late st Contact Info) Description 07/25/2023 Orders Only [facility] - Medical Oncology [address] [place] [address] [place] [address] [place] [address] [address] [place] [address] Social History Tobacco Use Types Packs/Day [...] Office Visit [facility] [address] [facility] [place] [phone] Addison Cox MD [address] [facility] [place], [place] [phone] 10/12/2024 12:45 PM EDT Office Visit [facility] - Medical Oncology [address] [place] [phone] Bryon Azevedo MD [address] [address] [address] [place], [place] [phone] documented as of this encounter Visit Diagnoses Not on filedocumented in this encounter Additional Health Concerns Assessment Noted Time PHQ-9 Depression Total Score: 1 09/11/19 20 1:53 PM EDT documented as of this encounter Care Teams Rotor Winder Relationship Specialty Start Date End Date Agusto Chambers DO [address] [place] [address], [address] [place], [place] [phone] PCP - General Family Medicine 06/14/24 documented as of this encounter
--- OUTSIDE RECORDS SUMMARY | 2024-09-11 00:10 | XMS_ITS | Encounter Summary ---
Author Organization [facility] Address [address] [place] [address] Phone Care Team Providers Care Ways Operator Name Role Phone Generic Provider, No Assigned Pcp MD Primary Car e Provider Unavailable Encounter Details Date Type Department Care Team (Late st Contact Info) Description 11/12/2021 Orders Only [facility] [address] [place] [address] Conversion, Onbase Social History Tobacco Use Types Packs/Day Years Used Date Smoking Tobacco: Never Assessed Sex and Gender Information Value Date Recorded Sex Assigned at Not on file Legal Sex Male 3:14 PM EST Gender Identity Not on file Sexual Orientation Not on file documented as of this encounter Plan of Treatment Scheduled Orders Name Type Priority Associated Diagnoses Orde r Schedule SLEEP STUDY ORDER - ONBASE SCAN Sleep Center Ordered: 022 documented as of this encounter Visit Diagnoses Not on filedocumented in this encounter Care Teams Ways Operator Relationship Specialty Start Date End Date Generic Provider, No Assigned PcpMD PCP - General Family Medicine 01/01/23 documented as of this encounter
--- OUTSIDE RECORDS SUMMARY | 2024-09-11 00:10 | XMS_ITS ---
Author Organization [facility] tem Address [id number] [place] [address] Care Team Providers Care Manufacturing Business Analyst Name Role Phone Augsto Chambers DO Primary Care Provider [phone] Active Problems Problem Noted Date Diagnosed Date Malignant neoplasm of lung, unspecified laterality, unspecified part of lung 08/29/2024 Anxiety 04/26/2024 Assessment & Plan (07/01/2024 10:36 PM EDT): Anxiety symptoms reported to be controlled with medications for anxiety. Patient reports that he has been able to tolerate new regiment of chemo to this point.Communicated with Dr Parker about taking over prescribing benzodiazepine for anxiety given his history. He is willing to prescribe benzodiazepine but requested that patient only receive either lorazepam and alprazolam for treatment of anxiety. Metastatic non-small cell lung cancer 01/26/2024 Paroxysmal atrial fibrillation 11/14/2023 Chronic HFrEF (heart failure with reduced ejection fraction) 11/14/2023 Assessment & Plan (06/29/2024 3:34 PM EDT): Symptoms of congestive heart failure absent and patient tolerating medications well. Continue with spironolactone 50 mg daily, metoprolol tartrate 100 mg Aching headache 08/05/2023 Non-small cell lung cancer m etastatic to 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 06/16/2023 Squamous cell carcinoma of lung, stage IV 2023 Pre-diabetes 04/02/2020 Current Treatment and Therapy Plans Adult oncology/infusion center flush orders* Plan Start Date:08/05/2023 Plan Provider:Bryon Azevedo MD Linked Problems Non-small cell lung cancer m etastatic to 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 (CMS-HCC)Stage IV squamous cell carcinoma of lung, unspecified laterality (CMS-HCC) Treatment Medications No medications scheduled. Oncology hydration and supportive care* Plan Start Date:08/15/2023 Plan Provider:Bryon Azevedo MD Linked Problems Non-small cell lung cancer m etastatic to 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 (CMS-HCC)Squamous cell carcinoma of lung, stage IV ([facility]-HCC)Aching headache Treatment Medications No medications scheduled. OP NSCLC ramucirumab / DOCEtaxel* Plan Start Date:09/06/2024 Plan Provider:Bryon Azevedo MD Linked Problems Non-small cell lung cancer m etastatic to 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 ([facility]-HCC) Treatment Medications Current Day (Day 1 , Cycle 0 - Planned for 09/06/2024) Next Day (Day 1, Cycle 1 - Planned for 09/07/2024) DOCEtaxel (TAXOTERE) chemo IVPBramucirumab (CYRAMZA) chemo IVPB piggyback No medications scheduled. DOCEtaxeL (TAXOTERE) 180 mg in sodium chloride 0.9 % (non-pvc) 250 mL chemo IVPBramucirumab 1,100 mg in sodium chloride 0.9 % 250 mL chemo IVPB Past Treatment and Therapy Plans ONCOLOGY TREATMENT Plan Name Start Date Discontinue Date Treatment Medications Discontinue Reason Plan Provider Cycles OP lung ARBOplatin / gemcitabine 06/27/19 25 08/31/2024 CARBOplatin (PARAPLATIN) chemo IVPB (by AUC) piggybackgemcitabine (GEMZAR) chemo IVPB piggyback Other Bryon Azevedo MD 3 of 5 cycles started OP NSCLC CARBOplatin / gemcitabine 025 06/05/2024 gemcitabine (GEMZAR) chemo IVPB piggyback Other Bryon Azevedo MD Treatment not started OP NSCLC protein bound PACLitaxel / CARBOplatin 024 06/05/2024 CARBOplatin (PARAPLATIN) chemo IVPB (by AUC) piggybackPACLitaxel protein-bound (ABRAXANE) Other Bryon Azevedo MD 5 of 7 cycles started OP NSCLC atezolizumab 024 09/22/2023 atezolizumab (TECENTRIQ) chemo IVPB piggyback Other Bryon Azevedo MD Treatment not started OP BREAST PEMBROLIZUMAB + PACLITAXEL CARBOPLATIN WEEKLY FOLLOWED BY PEMBROLIZUMAB +AC 024 09/16/2023 CARBOplatin (PARAPLATIN) chemo IVPB (by AUC) piggybackPACLItaxel (TAXOL) chemo IVPB piggyback Other Bryon Azevedo MD 2 of 15 cycles started Past Radiation Episodes * Radiation TherapyOverview* First Treatment Date Last Treatment Date Treatment Site Technique Goal Episod e Provider 02/06/2024 02/28/2024 * Linked Problems Metastatic non-small cell dru ng cancer (CMS-HCC) Treatment Courses* Course C1 02/06/2024 - 02/28/2024 Treatment Period Fraction Dose Fractions Total Dose Plans Planned Rt LungMed 3D 02/06/2024 - 02/28/2024 300 4,500 Reference Points Delivered Rx rt lung media 02/06/2024 - 02/28/2024 4,500 Resolved Problems Problem Noted Date Diagnosed Date Resolved Date Sleep apnea 10/27/2022 06/14/2024 Obstructive sleep apnea 02/08/201705/23
--- OUTSIDE RECORDS SUMMARY | 2024-09-11 00:10 | XMS_ITS | Encounter Summary ---
Author Organization [facility] Address [address] [place] [address] Care Team Providers Care Property Administrator Name Role Phone Unavailable Primary Care Provider Unavailabl e Encounter Details Date Type Department Care Team (Late st Contact Info) Description 09/17/2022 Abstract [facility] [address] [place] [id number] [place] [address] [place] [address] Social History Tobacco Use Types Packs/Day Years [...]
--- OUTSIDE RECORDS SUMMARY | 2024-09-11 00:10 | XMS_ITS | Encounter Summary ---
Author Organization [facility] tem Address [id number] [place] [address] Care Team Providers Care Animal Herder Name Role Phone Agusto Chambers DO Primary Care Provider [phone] Reason for Referral * Diagnostic Imaging (Routine) - Closed Specialty Diagnoses / Procedures Referred By Contac t Referred To Contact Radiology Diagnoses Malignant neoplasm of overlapping sites of right bronchus and lung ([facility]) Procedures IR biopsy lymph node Katherine Orellana MD [address] [place] [address] [address] [place] [address] Phone: tel: fax: Referral ID Status Reason Start Date Expiration Date Visits Re quested Visits Authorized [id number] Closed 05/16/2023 05/15/2024 1 1 Encounter Details Date Type Department Care Team (Late st Contact Info) Description 05/16/2023 Orders Only [facility] - Interventional Radiology [address] [facility] [place] [phone] Katherine Orellana MD [address] [place] [address] [address] [place] [address] Malignant neoplasm of overlapping sites of right bronchus and lung (CMS-HCC) (Primary Dx) Social History Tobacco Use Types Packs/Day Years [...] Office Visit [facility] [address] [address] Addison Cox MD [address] [place], [place] [id number] 10/12/2024 12:45 PM EDT Office Visit [facility] - Medical Oncology [address] [place] [address] Bryon Azevedo MD [address] [place] [address] documented as of this encounter Results * IR biopsy lymph node (05/31/2023 1:51 PM EDT) Anatomical Region Laterality Modality Lung N/A X-Ray Angiograph y 05/31/2023 3:00 PM EDT Narrative 05/31/2023 3:03 PM EDT Pre-procedure diagnosis: See history below Post-procedure diagnosis: Same as above Assistants/resident: See the technologist's notes above Consent/pre-procedure evaluation: See below. [place] protocol timeout verification performed. Estimated blood loss: [...] Alvin Santiago MD on 05/31/2023 3:03 PM Procedure Note Sridhar Santiago MD - 05/31/2023 Pre-procedure diagnosis: See history below Post-procedure diagnosis: Same as above Assistants/resident: See the technologist's notes above Consent/pre-procedure evaluation: See below. [place] protocol timeoutverification performed. Estimated blood loss: Less than 10 mL Procedure/complications: See below Radiation dosage measurements: See below and see technologist's notesabove Conscious sedation: If conscious sedation was administered, preprocedureevaluation for conscious sedation was performed and documented. History: needs biopsy of left supraclavicular lymph node adjacent tosubclavian artery and brachial plexus. Lung cancer Procedure, after explanation of the procedure, indications, risks,benefits, and alternatives to biopsy under intravenous conscious sedationto the patient, the patient gave consent. The risks that were stressedinclude bleeding, infection, allergic reaction, pain, damage to adjacentorgans, damage to artery with bleeding, damage to nerves with neurologic compromise ofleft upper extremity. The patient did not receive intravenous conscious sedation. Ultrasoundimages were obtained for localization purposes. If ultrasound was utilized, ultrasound images were obtained for biopsyguidance, to determine the location of the lesion, for imagedocumentation, and to assess the lesion before biopsy. Ultrasound imageswere obtained. Ultrasound images saved on PACS demonstrates uniformhypoechoic area with somewhat ill-defined margins adjacent to the anterior scalene muscle,subclavian artery, and adjacent to the brachial plexus. The area was sterilely prepped and draped using maximal sterile barriertechnique with cap, mask, gown, gloves, sterile barrier field, andchlorhexidine. 1% xylocaine was administered for local anesthesia. Afterplacement of a 19-gauge guiding needle into the periphery of thehypoechoic lesion, its position was verified with ultrasound image. Several cores were obtainedwith a 20-gauge system with limited needle excursion. There was no immediate complication from the procedure. Impression: Ultrasound-guided biopsy of left supraclavicular lesionwithout immediate complication. Finalized by Alvin Santiago MD on 05/31/2023 3:03 PM us Katherine Orellana MD IMG IR ORDERABLES Final Result documented in this encounter Visit Diagnoses Diagnosis Malignant neoplasm of overlapping sites of right bronchus and lung (CMS-HCC)- Primary Malignant neoplasm of overlapping sites of right bronchus and lung (CMS-HCC) documented in this encounter Additional Health Concerns Assessment Noted Time PHQ-9 Depression Total Score: 1 09/11/19 20 1:53 PM EDT documented as of this encounter Care Teams Animal Herder Relationship Specialty Start Date End Date Agusto Chambers DO [address] [facility], [place] [address] PCP - General Family Medicine 06/14/24 documented as of this encounter
--- OUTSIDE RECORDS SUMMARY | 2024-09-11 00:10 | XMS_ITS | Encounter Summary ---
Author Organization [facility] Address [address] [place] [address] Care Team Providers Care Tipple Operator Name Role Phone Unavailable Primary Care Provider Unavailabl e Encounter Details Date Type Department Care Team (Late st Contact Info) Description 06/10/2023 Abstract [facility] [address] [place] [phone] [place] [address] [place] [address] Social History Tobacco Use Types Packs/Day Years [...]
--- OUTSIDE RECORDS SUMMARY | 2024-09-11 00:10 | XMS_ITS | Clinical Summary ---
Author Organization [facility] Address [address] [facility] [place] [address] Care Team Providers Care Layout Inspector Name Role Phone Unavailable Primary Care Provider Unavailabl e Social History Tobacco Use Types Packs/Day Years Used Date Smoking Tobacco: Never Assessed Sex and Gender Information Value Date Recorded Sex Assigned at Not on file Legal Sex Male 10:58 PM EDT Gender Identity Not on file Sexual Orientation Not on file Last Filed Vital Signs Vital Sign Reading Time Taken Comments Blood Pressure - - Pulse - - Temperature - - Respiratory Rate - - Oxygen Saturation - - Inhaled Oxygen Concentration - - Weight 127 kg (280 lb) 11/06/2019 12:00 PM EDT Height 185.4 cm (6' 1 ) 02/03/2021 12:00 PM EST Body Mass Index 36.94 11/06/2019 12:00 PM EDT Plan of Treatment Not on file Insurance [facility] MEDICAID
--- OUTSIDE RECORDS SUMMARY | 2024-09-11 00:10 | XMS_ITS | Encounter Summary ---
Author Organization [facility] Address [address] [place] [address] Phone Care Team Providers Care Partnership Manager Name Role Phone Generic Provider, No Assigned Pcp MD Primary Car e Provider Unavailable Encounter Details Date Type Department Care Team (Late st Contact Info) Description 11/02/2023 Scanned Document [facility] [address] [place] [phone] Scanning, Generic Provider Social History Tobacco Use Types Packs/Day Years Used Date Smoking Tobacco: Former Cigarettes Q uit: 04/2022 Smokeless Tobacco: Current Chew Alcohol Use Standard Drinks/Week Comments Never 0 (1 standard drink = 0.6 oz pur e alcohol) PHQ-2 Answer Date Recorded Patient Health Questionnaire-2 Score 1 12/01/2022 Sex and Gender Information Value Date Recorded Sex Assigned at Not on file Legal Sex Male 3:14 PM EST Gender Identity Not on file Sexual Orientation Not on file COVID-19 Exposure Response Date Recorded In the last 10 days, have yo u been in contact with someone who was confirmed or suspected to have Coronavirus/COVID-19? No / Unsure 11/02/2023 1:52 PM EDT documented as of this encounter Plan of Treatment Not on file documented as of this encounter Procedures Procedure Name Priority Date/Time Associated Diagnosis Comments ELECTROCARDIOGRAM 12 LEAD 11/02/2023 ECHOCARDIOGRAM 11/02/2023 documented in this encounter Results * Echocardiogram (11/02/2023) Narrative 11/02/2023 Ordered by an unspecified provider. us Generic Provider Scanning CV ECHO PROCEDURES Fin al Result * Electrocardiogram (11/02/2023) Narrative 11/02/2023 Ordered by an unspecified provider. us Generic Provider Scanning ECG ORDERABLES Final Result documented in this encounter Visit Diagnoses Not on filedocumented in this encounter Additional Health Concerns Assessment Noted Time PHQ-9 Depression Total Score: 11 023 2:13 PM EST A fall risk assessment has been complete d for the patient 12/01/2022 1:29 PM EDT documented as of this encounter Care Teams Partnership Manager Relationship Specialty Start Date End Date Generic Provider, No Assigned PcpMD PCP - General Family Medicine 01/01/23 documented as of this encounter
--- OUTSIDE RECORDS SUMMARY | 2024-09-11 00:11 | XMS_ITS | Encounter Summary ---
Author Organization 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); Lung mass Social History Tobacco Use Types Packs/Day Years Used Date Smoking Tobacco: Every Day Cigarettes Smokeless Tobacco: Never Alcohol Use Standard Drinks/Week Comments Defer 0 (1 standard drink = 0.6 oz pur e alcohol) Sex and Gender Information Value Date Recorded Sex Assigned at Male 03/14/2024 10:50 AM EST Legal Sex Male 10:20 AM EDT Gender Identity Male 03/14/2024 10:50 AM EST Sexual Orientation Heterosexual or Straight 02/22 10:50 AM EST COVID-19 Exposure Response Date Recorded In the last 10 days, have yo u been in contact with someone who was confirmed or suspected to have Coronavirus/COVID-19? No / Unsure 07/12/2022 12:12 PM EDT documented as of this encounter Progress Notes * Deandra Sprague MA - 07/09/2022 11:56 AM EDT . documented in this encounter Plan of Treatment Upcoming Encounters Date Type Department Care Team (Late st Contact Info) Description 09/11/2024 11:00 AM EDT Office Visit [facility] [address] [place] [address] Harrison Kearney MD [address] [place] [phone] documented as of this encounter Results * XR transfer of outside films (07/09/2022 12:00 AM EDT) Narrative IMAGING - 07/09/2022 11:59 AM EDT This order has been auto-finalized and does not contain a result. 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
--- OUTSIDE RECORDS SUMMARY | 2024-09-11 00:11 | XMS_ITS | Encounter Summary ---
Author Organization [employer] Address [id number] [place] [address] Care Team Providers Care Medication Specialist Name Role Phone Agusto Chambers DO Primary Care Provider [phone] Encounter Details Date Type Department Care Team (Late st Contact Info) Description 11/16/2023 Abstract Krist[facility]ont [facility] - Medical Oncology [address] [place] [address] Barbie Peace RMA Social History Tobacco Use Types Packs/Day Years [...] got money to buy more. Never True 11/17/2023 Within the past 12 months th e food we bought just didn't last and we didn't have money to get more. Never True 11/17/2023 Purpose - Life Answer Date Recorded Purpose and direction in life Unknown Sex and Gender Information Value Date Recorded Sex Assigned at Not on file Legal Sex Male 12:03 PM EDT Gender Identity Not on file Sexual Orientation Not on file documented as of this encounter Plan of Treatment Upcoming Encounters Date Type Department Care Team ([facility] st Contact Info) Description 10/08/2024 1:45 PM EDT Office Visit [facility] Pul[facility] [address] [facility] [address] [phone] Addison Cox MD [address] [facility] [place], [place] [id number] 10/12/2024 12:45 PM EDT Office Visit Kristine Dumont [facility] Center - Medical Oncology [address] [place] [phone] [place] [address] [place] [address] [address] [place] [address] documented as of this encounter Visit Diagnoses Not on filedocumented in this encounter Additional Health Concerns Assessment Noted Time PHQ-9 Depression Total Score: 1 09/11/19 20 1:53 PM EDT documented as of this encounter Care Teams Medication Specialist Relationship Specialty Start Date End Date Agusto Chambers DO [address] [place] [address], [facility] [address], [address] [place], [place] [phone] PCP - General Family Medicine 06/14/24 documented as of this encounter
--- OUTSIDE RECORDS SUMMARY | 2024-09-11 00:11 | XMS_ITS | Encounter Summary ---
Author Organization [employer] Address [id number] [place] [address] Care Team Providers Care Channel Opener Name Role Phone Agusto Chambers DO Primary Care Provider [phone] Reason for Visit * Reason Onset Date Comments Transition Of Care 08/31/2024 Encounter Details Date Type Department Care Team (Late st Contact Info) Description 08/31/2024 [facility]phone [facility] [address] [place] [address] [place] [address] Nadine Samuels RN Transition Of Care Social History Tobacco Use Types Packs/Day Years [...] on file documented as of this encounter Miscellaneous Notes * Telephone Encounter - Nadine Samuels RN - 08/31/2024 8:59 AM EDT Transition of Care (*required) *Additional Questions/Concerns Requiring PCP Follow-Up: Advised pt to call the PCPs office to set aff up appt with him. Pt however is contemplating in looking for another provider. For TCM, patient would need an appt on/before 09/12/24, unless otherwise directed by PCP. This documentation is being used for Transition of Care purposes: Yes Goal: Patient will demonstrate a safe transition from Hospital to Home Diagnosis on Discharge: Malignant neoplasm of lung, unspecified laterality, unspecified part of lung Discharge Specialty: Hem/Onc and Pulmonology *Name of Discharging Facility: [facility] Date of Facility Discharge: 08/29/2024 - 08/30/2024 Date of Interactive Contact and Name of Hops Farmworker: 7.11 at 8:59 Unable to reach patient. Generic message left with contact number for a return phone call. 7.11 at 2:57 CN spoke to patient regarding his care, health, and medications. *Medication Review Completed: No Patient declined medications review at this time. STOP taking: ALEVE 220 mg tablet (naproxen sodium) doxycycline 100 mg tablet (VIBRA-TABS) ASK how to take: albuterol 90 mcg/actuation inhaler (PROVENTIL HFA;VENTOLIN HFA) dexAMETHasone 4 mg tablet (DECADRON) guaiFENesin 600 mg tablet extended release 12hr (MUCINEX) spironolactone 50 mg tablet (ALDACTONE) Medication Reconciliation Questions/Concerns: None at this time. *Follow Up Appointments with Providers: Primary: Agusto Chambers DO TBD Specialty: Bryon Azevedo (Oncology) 7.11 at 11:15 Specialty: CT combination with contrast 7.11 at 3:20 Specialty: Port draw visit 7.14 at 12 Specialty: Infusion [place] 7.15 at 1 Specialty: Dr. Cox (Pulmonary) 8.18 at 1:45 Review of Pending Lab/Diagnostic Tests and Plan for Completion: No pending lab/diagnostic test noted in the discharge summary. Assessment and Support of Treatment Regimen Adherence and Medication Management: Patient states he is overall doing better but feels slightly tired. Reports he has a lingering wet cough with mixed blood and yellow mucus. Patient states that his breathing has improved, however still experiences some occasional sob worsewith activity better at rest. Energy conservation reviewed. New to oxygen @ 2 liters at rest and 3l with ambulation. Informed he will obtain a pulse Oz to monitor his O2. O2 therapy safety, precautions and energy conservation reviewed. Says he is eating and drinking appropriately and denies any bladder or bowel dysfunction. Informed he did received a walker. Says he has no issue financially with being able to obtain medications, transportation, or food. Informed family is supportive in his care. Counseled importance of compliance of discharge instructions and medications in overall improvementin long-term survival Education Provided by ACN to Support Self-Management, Independent Living and ADLs: Instruct patientto call the office for questions, concerns, new worsening or recurring s/s. Call 911 for urgent symptoms such as CP, SOB or symptoms of CVA. Education given on meds, diet, infection prevention, safety and fall precautions, follow-up appt and d/c instruction reviewed. Communication with Home Health Agencies and Other Services Utilized/Needed by the Patient: Patient discharge home self-care and support of family. * Telephone Encounter - Agusto Chambers DO - 08/31/2024 8:59 AM EDT Please contact Arvin to see how he is doing after his hospitalization and if he wants to schedule ahospital follow-up. Thank you * Telephone Encounter - Cristal Espinal CNA - 08/31/2024 8:59 AM EDT Attempted to call patient, left VM documented in this encounter Plan of Treatment Upcoming Encounters Date Type Department Care Team ([facility] Contact Info) Description 10/08/2024 1:45 PM EDT Office Visit [facility] [address] [place] [address] Addison Cox MD [address] [facility] [place], [place] [phone] 10/12/2024 12:45 PM EDT Office Visit [facility] - Medical Oncology [address] [place] [address] Bryon Azevedo MD [address] [place], [place] [id number] documented as of this encounter Goals Goal [...] documented as of this encounter Care Teams Channel Opener Relationship Specialty Start Date End Date Agusto Chambers DO [address] [facility] [address], [address] [place], [place] [phone] PCP - General Family Medicine 06/14/24 documented as of this encounter
--- OUTSIDE RECORDS SUMMARY | 2024-09-11 00:11 | XMS_ITS | Encounter Summary ---
Author Organization [employer] Address [id number] [address] [place] [address] Care Team Providers Care Director Music Name Role Phone Agusto Chambers DO Primary Care Provider [phone] Reason for Visit * Reason Onset Date Comments Med Refill 07/04/2024 Encounter Details Date Type Department Care Team (Late st Contact Info) Description 07/04/2024 Refill [facility] [address] [place] [address] [place] [phone] Cristal Espinal CNA Social History Tobacco Use Types Packs/Day Years [...] Upcoming Encounters Date Type Department Care Team ([facility] Contact Info) Description 10/08/2024 1:45 PM EDT Office Visit [facility] [address] [facility] [address] Addison Cox MD [address] [facility] [place] [address] 10/12/2024 12:45 PM EDT Office Visit [facility] - Medical Oncology [address] [place] [phone] Bryon Azevedo MD [address] [place] [address] [address] [place] [address] documented as of this encounter Visit Diagnoses Not on filedocumented in this encounter Additional Health Concerns Assessment Noted Time PHQ-9 Depression Total Score: 4 06/15/19 25 10:43 AM EDT documented as of this encounter Care Teams Director Music Relationship Specialty Start Date End Date Agusto Chambers DO [address] [place] [address], [address], [address] [place], [place] [phone] PCP - General Family Medicine 06/14/24 documented as of this encounter
--- OUTSIDE RECORDS SUMMARY | 2024-09-11 00:11 | XMS_ITS | Clinical Summary ---
Author Organization [place] [facility] Address [id number] [address] [place] [address] Care Team Providers Care Legal Service Specialist Name Role Phone Agusto Chambers DO Primary Care Provider [phone] Allergies Active Allergy Reactions Criticality Noted Date Comments Celecoxib 01/26/2011 Other reaction(s): GI Distress, Hives Metaxalone 01/26/2011 Other reaction(s): GI Distress Other Nausea And Vomiting,Other (See Comments) 07/24/2004 Other reaction(s): Hives Darvocet N 100 Medications multivitamin (MEN'S MULTI-VITAMIN) tablet Take 1 tablet by mouth in the morning. Active buprenorphine-n aloxone (SUBOXONE) 8-[address] tablet [address] 1 tablet under the tongue in the morning and 1 tablet before bedtime. Active apixaban (ELIQUIS) 5 mg tabletIndicatio ns:Atrial fibrillation (CMS-HCC) Take 1 tablet (5 mg total) by mouth in the morning and 1 tablet (5 mg total) before bedtime. 60 tablet 11 07/06/19 23 Active amiodarone (PACERONE) 200 mg tablet Take 1 tablet (200 mg total) by mouth in the morning. Active dapagliflozin propanediol (FARXIGA) 10 mg tablet Take 1 tablet (10 mg total) by mouth in the morning. Active losartan (COZAAR) 25 mg tablet Take 1 tablet (25 mg total) by mouth in the morning. Active metoprolol tartrate (LOPRESSOR) 100 mg tablet Take 1 tablet (100 mg total) by mouth in the morning. Active spironolactone (ALDACTONE) 50 mg tablet Take 1 tablet (50 mg total) by mouth in the morning. Active guaiFENesin (MUCINEX) 600 mg tablet extended release 12hr Take 1 tablet (600 mg total) by mouth every 12 (twelve) hours. 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 TAKE 1 TABLET BY MOUTH EVERY MORNING AND 1 TABLET AT BEDTIME 60 tablet 09/06/19 25 Active naproxen sodium (ALEVE) 220 mg tablet Take 2 tablets (440 mg total) by mouth in the morning and 2 tablets (440 mg total) in the evening. Take with meals. 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 60 tablet 2 06/21/19 25 2024 Discontinued doxycycline (VIBRA-TABS) 100 mg tablet Take 1 tablet (100 mg total) by mouth in the morning and 1 tablet (100 mg total) before bedtime. 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) TAKE 1 TABLET BY MOUTH EVERY MORNING AND 1 TABLET AT BEDTIME 60 tablet 08/03/19 25 2024 Discontinued(R eorder) Hospital, Clinic, or Other Facility Administered Medication Ordered Dose Route Frequency Start Date End Date Status heparin, porcine (PF) syringe 500 UnitsIndications: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),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),Metastatic non-small cell lung cancer (CMS-HCC) 500 Units IV As needed 08/08/2023 Active Active Problems Problem Noted Date Diagnosed [...] of lung, stage IV 2023 Pre-diabetes 04/02/2020 Resolved Problems Problem Noted Date Diagnosed Date Resolved Date Sleep apnea 10/27/2022 06/14/2024 Obstructive sleep apnea 02/08/2017 0405/2024 Encounters Date Type Department Care Team Description 09/03/2024 Refill Kristine Maki [facility] - Medical Oncology [address] [place] [phone] Bryon Azevedo MD 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) 08/31/2024 11:15 AM EDT Office Visit Kristine L Glynn [facility] - Medical Oncology [address] [place] [phone] Bryon Azevedo MD Stage IV squamous cell carcinoma of lung, unspecified laterality (CMS-HCC); 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); Metastatic non-small cell lung cancer (CMS-HCC) 08/31/2024 Refill [facility] Hematology Oncology, A Department of [address] [place] [phone] Bryon Azevedo MD 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 ([facility]) 08/31/2024 Documentation Kristine Maki [facility] - Medical Oncology [address] [place] [phone] Endy Osman, THERESA 08/31/2024 Telephone [facility] Physicians Family Medicine [address] [place] [address] Nadine Samuels, stitcher hand Of Care 08/29/2024 5:46 PM EDT - 08/30/2024 4:15 PM EDT Hospital Encounter [facility] - Acute Care [address] [place] [address] Harrison Staples MD Gill, Kaleem U, MD Malignant neoplasm of lung, unspecified laterality, unspecified part of lung ([facility]-HCC) (Primary Dx); Hypoxemia; Metastatic non-small cell lung cancer (CMS-HCC) Discharge Disposition: Home 08/29/2024 Travel 08/21/2024 11:30 AM EDT Infusion Kristine Maki [facility] - Medical Oncology [address] [place] [phone] 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 ([facility]-HCC) (Primary Dx); Stage IV squamous cell carcinoma of lung, unspecified laterality (CMS-HCC) 08/21/2024 Social Work Kristine L Glynn [facility] - Medical Oncology [address] [place] [phone] Stephany Klein LSW 08/21/2024 Orders Only Kristine Maki [facility] Medical Oncology [address] [place] [phone] Shanita Schwab, THERESA 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) (Primary Dx); Stage IV squamous cell carcinoma of lung, unspecified laterality (CMS-HCC); Metastatic non-small cell lung cancer (CMS-HCC); Shortness of breath 08/20/2024 12:00 PM EDT Infusion Kirstine Maki [facility] Medical Oncology [address] [place] [phone] Stage IV squamous cell carcinoma of lung, unspecified laterality (CMS-HCC) (Primary Dx); 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 ([facility]-HCC) 08/20/2024 Travel 08/13/2024 Telephone [facility] [address] [phone] Ashanti Grayson CMA 08/13/2024 Orders Only [facility] [address] [phone] Lata Cuadra LPN 08/11/2024 Refill [facility] [address] [place] [address] Addison Cox MD 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); 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 ([facility]-H[facility]); SOB (shortness of breath) 08/07/2024 1:00 PM EDT Infusion Kristinejuvencio Maki [facility] Medical Oncology [address] [place] [phone] 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) (Primary Dx); Stage IV squamous cell carcinoma of lung, unspecified laterality (CMS-HCC) 08/06/2024 12:00 PM EDT Infusion Kristine L Glynn [facility] - Medical Oncology [address] [place] [phone] Stage IV squamous cell carcinoma of lung, unspecified laterality (CMS-HCC) (Primary Dx); 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) 08/06/2024 Travel 08/02/2024 Refill [facility], A Department of [facility] [address] [place] [phone] Bryon Azevedo MD 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) 08/02/2024 Refill Kristine Maki [facility] Medical Oncology [address] [place] [phone] Bryon Azevedo MD 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) 07/24/2024 11:30 AM EDT Infusion Kristine Tim Bullitt [facility] Medical Oncology [address] [place] [phone] 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) (Primary Dx); Stage IV squamous cell carcinoma of lung, unspecified laterality (CMS-HCC) 07/24/2024 Travel 07/23/2024 12:00 PM EDT Infusion Kristine Dumont Bullitt [facility] Medical Oncology [address] [place] [phone] Stage IV squamous cell carcinoma of lung, unspecified laterality (CMS-HCC) (Primary Dx); 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) 07/23/2024 Orders Only [facility], A Department of [facility] [address] [place] [phone] Bryon Azevedo MD 07/20/2024 2:15 PM EDT Office Visit Kristine Dumont [facility] - Medical Oncology [address] [place] [phone] Bryon Azevedo MD Stage IV squamous cell carcinoma of lung, unspecified laterality ([facility]); 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 ([facility]) (Primary Dx); Stage IV squamous cell carcinoma of lung, unspecified laterality ([facility]) 07/10/2024 Orders Only [facility] Medical Oncology [address] [place] [phone] Osiris Ward, THERESA 07/09/2024 2:00 PM EDT Infusion Kristine [facility] Medical Oncology [address] [place] [phone] Stage IV squamous cell carcinoma of lung, unspecified laterality ([facility]) (Primary Dx); 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 ([facility]) 07/09/2024 Travel 07/04/2024 Refill Kristine Dumont Bullitt [facility] Medical Oncology [address] [place] [phone] Bryon Azevedo MD 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 ([facility]) 07/04/2024 Refill [facility], A Department of [address] [place] [phone] Bryon Azevedo MD 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 ([facility]) 07/04/2024 Telephone [facility] [address] [place] [phone] Cristal Espinal CNA Med Refill 07/04/2024 Refill [facility] [address] [place] [phone] Cristal Espinal CNA 06/29/2024 11:00 AM EDT Office Visit [facility] [address] [place] [phone] Agusto Chambers DO Chronic HFrEF (heart failure with reduced ejection fraction) ([facility]) (Primary Dx); Anxiety; Stage IV squamous cell carcinoma of lung, unspecified laterality ([facility]) 06/29/2024 Travel 06/28/2024 Social Work Kristine Dumont [facility] Oncology [address] [place] [phone] Stephany Klein, FRAMING SPECIALIST 06/26/2024 11:30 AM EDT Infusion Kristine Maki [facility] Oncology [address] [place] [phone] 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 ([facility]) (Primary Dx); Stage IV squamous cell carcinoma of lung, unspecified laterality ([facility]) 06/26/2024 Social Work Kristine Maik [facility] - Medical Oncology [address] [place] [phone] Stephany Klein, FRAMING SPECIALIST 06/26/2024 Orders Only [facility], A Department of [address] [place] [phone] Bryon Azevedo MD 06/25/2024 3:30 PM EDT Infusion Kristine Maki [facility] Oncology [address] [place] [phone] Stage IV squamous cell carcinoma of lung, unspecified laterality ([facility]) (Primary Dx); 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 ([facility]) (Primary Dx) 06/14/2024 10:30 AM EDT Office Visit [facility] Family Medicine [address] [place] [address] [place] [address] Agusto Chambers, Chronic HFrEF (heart failure with reduced ejection fraction) ([facility]) (Primary Dx); Stage IV squamous cell carcinoma of lung, unspecified laterality ([facility]-HCC); Metastatic non-small cell lung cancer ([facility]) 06/14/2024 Travel from Last 3 Months Immunizations Immunization Administration Dates Next Due DTP 10/12/2021 Influenza, Unspecified 05/11/2024,02/08/2017(Def erred: Patient Refused) Tdap 08/05/2014 Family History Medical History Relation Name Comments Heart disease Father Heart disease Mother Hypertension Mother Relation Name Status Comments Father Mother Alive Social History Tobacco Use Types Packs/Day Years Used Date Smoking Tobacco: Former Cigarettes Smokeless Tobacco: Never Tobacco Cessation:Counseling Given: Not Answered Alcohol Use Standard Drinks/Week Comments No 0 [...] Mass Index 32.41 08/31/2024 11:20 AM EDT Plan of Treatment Upcoming Encounters Date Type Department Care Team ([facility] Contact Info) Description 10/08/2024 1:45 PM EDT Office Visit [facility] [address] [address] Addison Cox MD [address] [facility] [place] [address] 10/12/2024 12:45 PM EDT Office Visit Kristine Dumont [facility] - Medical Oncology [address] [place] [address] Bryon Azevedo MD [address] [place] [address] Health Maintenance Due Date Last Done Comments Adult BMI Follow Up Plan 01/18/1996 Influenza Vaccine 10/22/2024 05/11/2024 Depression Screening 06/14/2025 06/14/2024 Adult BMI Screening 08/31/2025 08/31/2024 Tobacco Screening 08/31/2025 08/31/2024 DTaP,Tdap and Td Vaccines (3 - Td or Tdap) 10/13/2031 10/12/2021, 08/05/2014 Goals Goal Patient Goal Type Associated Problems Recent Progress Patient-Stated? Author home with O2 General Yes Stephany Klein LSW Note: Evaluation of progress towards goal: under assessment Medical Devices Not on file Procedures Procedure Name Priority Date/Time Associated Diagnosis Comments CBC WITH AUTO DIFFERENTIAL Routine 08/30/2024 5:01 AM EDT MAGNESIUM Routine 08/30/2024 5:01 AM EDT COMPREHENSIVE METABOLIC PANEL Routine 08/30/2024 5:01 AM EDT LACTATE W/ REFLEX Routine 08/29/2024 10: 08 PM EDT PROCALCITONIN Add-On 08/29/2024 10:[address] CTA CHEST STAT 08/29/2024 7:49 PM EDT TROP I, HIGH SENSITIVITY 1 HOUR STAT 08/29/2024 7:13 PM EDT APTT STAT 08/29/2024 6:11 PM EDT PROTIME & INR STAT 08/29/2024 6:11 PM EDT TROPONIN I, HIGH SENSITIVITY 0 HOUR STAT 08/29/2024 6:11 PM EDT TROPONIN I, HIGH SENSITIVITY 0 HOUR STAT 08/29/2024 6:11 PM EDT MAGNESIUM STAT 08/29/2024 6:11 PM EDT D-DIMER STAT 08/29/2024 6:11 PM EDT COMPREHENSIVE METABOLIC PANEL STAT 08/29/2024 6:11 PM EDT CBC WITH AUTO DIFFERENTIAL STAT 08/29/2024 6:11 PM EDT ECG 12-LEAD STAT 08/29/2024 5:52 PM EDT COMPREHENSIVE METABOLIC PANEL STAT 08/20/2024 11:58 AM EDT 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) CBC WITH AUTO DIFFERENTIAL STAT 08/20/2024 11:58 AM EDT 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) COMPREHENSIVE METABOLIC PANEL STAT 08/06/2024 11:48 AM EDT 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) CBC WITH AUTO DIFFERENTIAL STAT 08/06/2024 11:48 AM EDT 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) COMPREHENSIVE METABOLIC PANEL STAT 07/23/2024 12:12 PM EDT 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) CBC WITH AUTO DIFFERENTIAL STAT 07/23/2024 12:12 PM EDT 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) COMPREHENSIVE METABOLIC PANEL STAT 07/09/2024 2:17 PM EDT 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 WBC 5.0 4 - 11 x10E9/L 08/30/2024 5:53 AM EDT [facility] RBC Count 3.85(L) 4.1 - 5.7 X10E12/L 08/30/2024 5:53 AM EDT [facility] Hemoglobin 11.1(L) 13 - 17 g/dL 08/30/2024 5:53 AM EDT [facility] Hematocrit 32.2(L) 39 - 50 % 08/30/2024 5:53 AM EDT [facility] MCV 84 80 - 100 fL 08/30/2024 5:53 AM EDT [facility] MCH 28.8 27 - 34 pg 08/30/2024 5:53 AM EDT [facility] MCHC 34.4 32 - 36 g/dL 08/30/2024 5:53 AM EDT [facility] RDW 18.8(H) 11.5 - 15 % 08/30/2024 5:53 AM EDT [facility] Platelet Count 137(L) 150 - 450 X10E9/L 08/30/2024 5:53 AM EDT [facility] MPV 7.5 7 - 12 fL 08/30/2024 5:53 AM EDT [facility] Neutrophils % 89.4 % 08/30/2024 5:53 AM EDT [facility] Lymphocytes % 4.9 % 08/30/2024 5:53 AM EDT [facility] Monocytes % 5.3 % 08/30/2024 5:53 AM EDT [facility] Eosinophils % 0.2 % 08/30/2024 5:53 AM EDT [facility] Basophils % 0.2 % 08/30/2024 5:53 AM EDT [facility] Neutrophils Absolute (A) 4.4 1.5 - 6.6 10*3/uL 08/30/2024 5:53 AM EDT [facility] Lymphocytes Absolute 0.2(L) 1.0 - 3.5 10*3/uL 08/30/2024 5:53 AM EDT [facility] Monocytes Absolute 0.3 0.0 - 0.9 10*3/uL 08/30/2024 5:53 AM EDT [facility] Eosinophils Absolute 0.0 0.0 - 0.4 10*3/uL 08/30/2024 5:53 AM EDT [facility] Basophils Absolute 0.0 0.0 - 0.2 10*3/uL 08/30/2024 5:53 AM EDT [facility] Differential Type AUTOMATED DIFFERENTIAL 08/30/2024 5:53 AM EDT [facility] Blood Venous blood / Unknown Venipuncture / Unknown 08/30/2024 5:01 AM EDT 08/30/2024 5:13 AM EDT Rosita De Jesus TOOLING ENGINEERING TECH-MASTER CHEF LAB BLOOD ORDERABLES Dawna l Result Performing Organization Address City/[facility] Co de Phone Number [address] [place] [address], * Magnesium (08/30/2024 5:01 AM EDT) Only the most recent of2 resultswithin the time period is included. MAGNESIUM 1.9 1.8 - 2.6 mg/dL 08/30/2024 5:39 AM EDT [facility] Blood Venous blood / Unknown Venipuncture / Unknown 08/30/2024 5:01 AM EDT 08/30/2024 5:13 AM EDT us Rosita De Jesus TOOLING ENGINEERING TECH-MASTER CHEF LAB BLOOD ORDERABLES Dawna l Result Performing Organization Address [facility] Co de Phone Number [address] [place] [address], [place] * (ABNORMAL) Comprehensive metabolic panel (08/30/2024 5:01 AM EDT) Only the most recent of7 resultswithin the time period is included. SODIUM 136 134 - 146 mmol/L 08/30/2024 5:39 AM EDT [facility] POTASSIUM 3.7 3.5 - 5.0 mmol/L 08/30/2024 5:39 AM EDT [facility] CHLORIDE 103 98 - 109 mmol/L 08/30/2024 5:39 AM EDT [facility] CARBON DIOXIDE 23 22 - 32 mmol/L 08/30/2024 5:39 AM EDT [facility] ANION GAP 10 5 - 15 mmol/L 08/30/2024 5:39 AM EDT [facility] BLOOD UREA NITROGEN 7 5 - 23 mg/dL 08/30/2024 5:39 AM EDT [facility] CREATININE 0.70 0.70 - 1.20 mg/dL 08/30/2024 5:39 AM EDT [facility] Comment:METHOD TRACEABLE TO IDMS STANDARD GLUCOSE 127(H) 65 - 99 mg/dL 08/30/2024 5:39 AM EDT [facility] CALCIUM 9.4 8.5 - 10.5 mg/dL 08/30/2024 5:39 AM EDT [facility] TOTAL PROTEIN 7.1 6.0 - 8.0 g/dL 08/30/2024 5:39 AM EDT [facility] ALBUMIN 3.3 3.2 - 5.3 g/dL 08/30/2024 5:39 AM EDT [facility] ALKALINE PHOSPHATASE 82 39 - 130 U/L 08/30/2024 5:39 AM EDT [facility] AST 33 <=41 U/L 08/30/2024 5:39 AM EDT [facility] ALT 42(H) <=40 U/L 08/30/2024 5:39 AM EDT [facility] BILIRUBIN,TOTAL 0.9 0.3 - 1.2 mg/dL 08/30/2024 5:39 AM EDT [facility] EGFR Non-Race Dependent >90 >=60 ml/min/1.7 3sq.m 08/30/2024 5:39 AM EDT [facility] Comment: eGFR not reported due to non-numeric value for Creatinine. Reported eGFR is based on the CKD-EPI 2020 equation that does not use a race coefficient. Blood Venous blood / Unknown Venipuncture / Unknown 08/30/2024 5:01 AM EDT 08/30/2024 5:13 AM EDT us Rosita De Jesus TOOLING ENGINEERING TECH-MASTER CHEF LAB BLOOD ORDERABLES Dawna l Result [facility] [address] [place] [address], [place] * (ABNORMAL) Procalcitonin (08/29/2024 10:08 PM EDT) PROCALCITONIN 0.19(H) <0.05 ng/mL 08/29/2024 10:46 PM EDT [facility] Blood Venous blood / Unknown Venipuncture / Unknown 08/29/2024 10:08 PM EDT 08/29/2024 10:10 PM EDT Narrative [facility] - 08/29/2024 10:46 PM EDT <0.50 ng/mL - Low risk of severe sepsis and/or septic shock. <2.00 ng/mL - Recommend retesting within 6-24 hours. >2.00 ng/mL - High risk of sepsis and/or septic shock. us Rosita De Jesus TOOLING ENGINEERING TECH-MASTER CHEF LAB BLOOD ORDERABLES Dawna l Result Performing Organization Address City/[facility]/ZIP Co de Phone Number [address] [place] [address], [place] * Lactate w/ Reflex (08/29/2024 10:08 PM EDT) LACTATE W/REFLEX 1.5 0.4 - 2.0 mmol/L 08/29/2024 10:32 PM EDT [facility] Blood Venous blood / Unknown Venipuncture / Unknown 08/29/2024 10:08 PM EDT 08/29/2024 10:11 PM EDT Narrative [facility] - 08/29/2024 10:32 PM EDT Result did not trigger repeat Lactate, re-order if needed. us Rosita De Jesus TOOLING ENGINEERING TECH-MASTER CHEF LAB BLOOD ORDERABLES Dawna l Result [address] [place] [address], [place] * CT angiogram chest (08/29/2024 7:49 [...] cm. Nonaneurysmal thoracic aorta. Left chest wall Mrlixq-w-Yghi catheter with tip at level of cavoatrial [...] cm. Nonaneurysmal thoracic aorta. Left chest wall Sqqvxf-v-Quly catheter withtip at level of cavoatrial junction. [...] Theron Guevara MD on 08/29/2024 8:21 PM us Zakiya Viera TOOLING ENGINEERING TECH-MASTER CHEF IMG CT ORDERABLES Final Re sult * Troponin I, High Sensitivity 1 Hour (08/29/2024 7:13 PM EDT) TROPONIN I, HIGH SENSITIVITY <2 <21 ng/L 08/29/2024 7:58 PM EDT [facility] Blood Venous blood / Unknown Venipuncture / Unknown 08/29/2024 7:13 PM EDT 08/29/2024 7:15 PM EDT us [facility]akiya Viera [facility] LAB BLOOD ORDERABLES Final Result Performing Organization Address City/[facility] Co de Phone Number [address] [place] [address], [place] * Troponin I, High Sensitivity 0 Hour (08/29/2024 6:11 PM EDT) TROPONIN I, HIGH SENSITIVITY <2 <21 ng/L 08/29/2024 6:42 PM EDT [facility] Blood Venous blood / Unknown Venipuncture / Unknown 08/29/2024 6:11 PM EDT 08/29/2024 6:13 PM EDT us Zakiya Viera [facility] LAB BLOOD ORDERABLES Final Result Performing Organization Address [facility] Co de Phone Number [address] [place] [address], [place] * APTT (08/29/2024 6:11 PM EDT) APTT 32 26 - 37 sec 08/29/2024 6:25 PM EDT [facility] Blood Venous blood / Unknown Venipuncture / Unknown 08/29/2024 6:11 PM EDT 08/29/2024 6:13 PM EDT us Harrison Staples MD LAB BLOOD ORDERABLES Final Resu lt Performing Organization Address City/[facility] Co de Phone Number [address] [place] [address], [place] * (ABNORMAL) Protime & INR (08/29/2024 6:11 PM EDT) PROTIME 20.9(H) 9.8 - 13.2 sec 08/29/2024 6:25 PM EDT [facility] INR 1.8(H) 0.9 - 1.2 08/29/2024 6:25 PM EDT [facility] Blood Venous blood / Unknown Venipuncture / Unknown 08/29/2024 6:11 PM EDT 08/29/2024 6:13 PM EDT Harrison Staples MD LAB BLOOD ORDERABLES Final Resu lt Performing Organization Address [facility] de Phone Number [facility] [address] [place] [address] [place] [address], [place] * (ABNORMAL) D-Dimer (08/29/2024 6:11 PM EDT) D DIMER 963(H) 1 - 255 ug/mL 08/29/2024 6:25 PM EDT [facility] Comment:Results >255 ng/mL D DU: Results [...] EDT 08/29/2024 6:13 PM EDT us Zakiya MARTINEZ LAB BLOOD ORDERABLES Final Result Performing Organization Address City/[facility] Co de Phone Number [facility] [address] [place] [address] [place] [address], [place] * ECG 12 lead (08/29/2024 5:52 PM EDT) 08/29/2024 5:52 PM EDT Narrative [facility] - 08/29/2024 7:29 PM EDT us Zakiya MARTINEZ ECG ORDERABLES Final Resu lt Performing Organization Address City/[facility]/ZIP Co de Phone Number [facility] from Last 3 Months Insurance [facility] MEDICAID Advance Directives * Full Code (Latest Code Status on File) Date Activated Date Inactivated Comments 08/29/2024 9:48 PM 08/30/2024 7:10 PM * Full Code Date Activated Date Inactivated Comments 02/08/2017 3:07 PM 02/09/2017 12:20 PM Care Teams Legal Service Specialist Relationship Specialty Start Date End Date Agusto Chambers DO [address] [place] [address], [facility] [address], [address] [place], [place] [id number] PCP - General Family Medicine 06/14/24
--- OUTSIDE RECORDS SUMMARY | 2024-09-11 00:11 | XMS_ITS | Encounter Summary ---
Author Organization [employer] Address [id number] [address] [place] [address] Care Team Providers Care Airline Security Representative Name Role Phone Agusto Chambers DO Primary Care Provider [phone] Reason for Visit * Reason Onset Date Comments PT Discharge 06/28/2022 Encounter Details Date Type Department Care Team (Late st Contact Info) Description 06/28/2022 Telephone [facility] [address] [place] [address] Vincent Ross PA-C [address] [place] [address] PT Discharge Social History Tobacco Use Types Packs/Day Years [...] Exposure Response Date Recorded In the last month, have you been in contact with someone who was confirmed or suspected to have Coronavirus / COVID-19? No / Unsure 05/31/2022 12:01 PM EDT documented as of this encounter Miscellaneous Notes * Telephone Encounter - Denise Piña - 06/28/2022 2:41 PM EDT ----- Message from Vincent Ross PA-C sent at 06/28/2022 2:21 PM EDT ----- New pt AFib clinic * Telephone Encounter - Pily Weston MA - 06/28/2022 2:41 PM EDT CURRENTLY ADMITTED documented in this encounter Plan of Treatment Upcoming Encounters Date Type Department Care Team (Late st Contact Info) Description 10/08/2024 1:45 PM EDT Office Visit [facility] [address] [place] [address] Addison Cox MD [address] [facility], [address] [place] [address] 10/12/2024 12:45 PM EDT [facility] Visit [facility] [address] [place] [address] Bryon Azevedo MD [address] [facility] [address] [place] [address] documented as of this encounter Visit Diagnoses Not on filedocumented in this encounter Additional Health Concerns Assessment Noted Time PHQ-9 Depression Total Score: 1 09/11/19 20 1:53 PM EDT documented as of this encounter Care Teams Airline Security Representative Relationship Specialty Start Date End Date Agusto Chambers DO [address] [facility], [place] [address] PCP - General Family Medicine 06/14/24 documented as of this encounter
--- OUTSIDE RECORDS SUMMARY | 2024-09-11 00:11 | XMS_ITS | Encounter Summary ---
Author Organization [email or web address] Address [id number] [address] [place] [address] Care Team Providers Care Machine Paint Mixer Name Role Phone Agusto Chambers DO Primary Care Provider [phone] Encounter Details Date Type Department Care Team (Late st Contact Info) Description 12/02/2023 Orders Only [facility] Center - Medical Oncology [address] [place] [address] Bryon Azevedo MD [address] [facility] [address] [place] [id number] Social History Tobacco Use Types Packs/Day Years [...] Upcoming Encounters Date Type Department Care Team ([facility] Contact Info) Description 10/08/2024 1:45 PM EDT Office Visit [facility] [address] [facility] [place] [address] Addison Cox MD [address] [facility] [place], [place] [id number] 10/12/2024 12:45 PM EDT Office Visit [facility] [address] [place] [address] Bryon Azevedo MD [address] [facility] [address] [place], [place] [phone] documented as of this encounter Visit Diagnoses Not on filedocumented in this encounter Additional Health Concerns Assessment Noted Time PHQ-9 Depression Total Score: 1 09/11/19 20 1:53 PM EDT documented as of this encounter Care Teams Machine Paint Mixer Relationship Specialty Start Date End Date Agusto Chambers DO [address] [facility], [facility] [address], [place] [address] PCP - General Family Medicine 06/14/24 documented as of this encounter
--- OUTSIDE RECORDS SUMMARY | 2024-09-11 00:11 | XMS_ITS | Encounter Summary ---
Author Organization [employer] Address [id number] [address] [place] [address] Care Team Providers Care Transmission Design Engineer Name Role Phone Agusto Chambers DO Primary Care Provider [phone] Encounter Details Date Type Department Care Team (Latest Contact Info) Description 08/29/2024 Travel Social History Tobacco Use Types Packs/Day Years [...] Office Visit [facility] [address] [facility] [place] [address] Addison Cox MD [address] [facility] [place], [place] [id number] 10/12/2024 12:45 PM EDT Office Visit [facility] - Medical Oncology [address] [place] [address] Byron Azevedo MD [address] [facility] [address] [place] [address] documented as of this encounter Visit Diagnoses Not on filedocumented in this encounter Additional Health Concerns Assessment Noted Time PHQ-9 Depression Total Score: 4 06/15/19 25 10:43 AM EDT documented as of this encounter Care Teams Transmission Design Engineer Relationship Specialty Start Date End Date Agusto Chambers DO [address] [facility], [facility] [address], [address] [place], [place] [phone] PCP - General Family Medicine 06/14/24 documented as of this encounter
--- OUTSIDE RECORDS SUMMARY | 2024-09-11 00:11 | XMS_ITS | Encounter Summary ---
Author Organization [employer] Address [id number] [address] [place] [address] Care Team Providers Care Bsw Name Role Phone Agusto Chambers DO Primary Care Provider [phone] Encounter Details Date Type Department Care Team (Late st Contact Info) Description 12/19/2023 Orders Only Krist[facility] Center - Medical Oncology [address] [place] [address] Bryon Azevedo MD [address] [facility] [address] [place] [address] [phone] Social History Tobacco Use Types Packs/Day Years [...] Upcoming Encounters Date Type Department Care Team ([facility] Contact Info) Description 10/08/2024 1:45 PM EDT Office Visit [facility] [address] [facility] [place] [address] Addison Cox MD [address] [facility], [address] [place], [place] [phone] 10/12/2024 12:45 PM EDT Office Visit [facility] [address] [place] [address] Bryon Azevedo MD [address] [facility] [address] [place], [place] [id number] documented as of this encounter Visit Diagnoses Not on filedocumented in this encounter Additional Health Concerns Assessment Noted Time PHQ-9 Depression Total Score: 1 09/11/19 20 1:53 PM EDT documented as of this encounter Care Teams Bsw Relationship Specialty Start Date End Date Agusto Chambers DO [address] [facility], [facility] [address], [place] [address] PCP - General Family Medicine 06/14/24 documented as of this encounter
--- OUTSIDE RECORDS SUMMARY | 2024-09-11 00:11 | XMS_ITS | Encounter Summary ---
Author Organization [employer] Address [id number] [address] [place] [address] Care Team Providers Care Marble Chip Terrazzo Worker Name Role Phone Agusto Chambers DO Primary Care Provider [phone] Reason for Referral * Diagnostic Imaging (Routine) - Closed Specialty Diagnoses / Procedures Referred By Patsy bajwa Referred To Contact Radiology Diagnoses Acute chest pain Procedures CT chest with contrast [facility] [place] [address] Phone: tel: fax: Referral ID Status Reason Start Date Expiration Date Visits Re quested Visits Authorized [id number] Closed 05/31/2022 05/31/2023 1 1 Encounter Details Date Type Department Care Team (Late st Contact Info) Description 05/31/2022 Orders Only [facility] [address] [place] [phone] Transcribe, Orders Support User Pain (Primary Dx); Acute chest pain Social History Tobacco Use Types Packs/Day Years Used Date Smoking Tobacco: Former Cigarettes Smokeless Tobacco: Never Alcohol Use Standard Drinks/Week Comments No 0 (1 standard drink = 0.6 oz pur e alcohol) PHQ-2 Answer Date Recorded Total Score 1 09/11/2019 Childcare Answer Date Recorded Childcare Unknown 08/02/2018 Employment Answer Date Recorded Employment Unknown 08/02/2018 Purpose - Life Answer Date Recorded Purpose [...] Office Visit [facility] [address] [facility] [place] [address] Addison Cox MD [address] [facility], [address] [place] [address] 10/12/2024 12:45 PM EDT Office Visit [facility] - Medical Oncology [address] [place] [address] [place] [address] [place] [address] [address] [place] [address] documented as of this encounter Results * CT chest with contrast (05/29/2022 6:15 PM EDT) us Scanning Provider External IMG CT ORDERABLES Fin al Result * X-ray chest 2 views (05/29/2022 5:00 PM EDT) us Scanning Provider External IMG DIAGNOSTIC IMAGIN G ORDERABLES Final Result documented in this encounter Visit Diagnoses Diagnosis Pain- Primary Generalized pain Acute chest pain Unspecified chest pain documented in this encounter Additional Health Concerns Assessment Noted Time PHQ-9 Depression Total Score: 1 09/11/19 20 1:53 PM EDT documented as of this encounter Care Teams Marble Chip Terrazzo Worker Relationship Specialty Start Date End Date Agusto Chambers DO [address] [facility], [facility], [address] [place] [phone] PCP - General Family Medicine 06/14/24 documented as of this encounter
--- OUTSIDE RECORDS SUMMARY | 2024-09-11 00:11 | XMS_ITS | Encounter Summary ---
Author Organization [employer] Address [id number] [address] [place] [address] Care Team Providers Care Insulation Board Calender Operator Name Role Phone Agusto Chambers DO Primary Care Provider [phone] Reason for Visit * Reason Comments Med Refill Encounter Details Date Type Department Care Team (Late st Contact Info) Description 12/06/2023 Refill [facility] - Medical Oncology [address] [place] [address] Bryon Azevedo MD [address] [facility] [address] [place], [place] [phone] Social History Tobacco Use Types Packs/Day Years [...] Office Visit [facility] [address] [place] [address] Addison Cox MD [address] [facility], [address] [place], [place] [phone] 10/12/2024 12:45 PM EDT Office Visit [facility] [address] [place] [address] Bryon Azevedo MD [address] [facility] [address] [place] [address] documented as of this encounter Visit Diagnoses Not on filedocumented in this encounter Additional Health Concerns Assessment Noted Time PHQ-9 Depression Total Score: 1 09/11/19 20 1:53 PM EDT documented as of this encounter Care Teams Insulation Board Calender Operator Relationship Specialty Start Date End Date Agusto Chambers DO [address] [facility] [place] [address] PCP - General Family Medicine 06/14/24 documented as of this encounter
--- OUTSIDE RECORDS SUMMARY | 2024-09-11 00:11 | XMS_ITS | Encounter Summary ---
Author Organization [employer] Address [id number] [address] [place] [address] Care Team Providers Care Dynamite Packing Machine Feeder Name Role Phone Agusto Chambers DO Primary Care Provider [phone] Encounter Details Date Type Department Care Team (Late st Contact Info) Description 10/31/2023 Orders Only Kristine Dumont [facility] Center - Medical Oncology [address] [place] [address] Shanita Schwab, THERESA Social History [...] got money to buy more. Never True 10/26/2023 Within the past 12 months th e food we bought just didn't last and we didn't have money to get more. Never True 10/26/2023 Purpose - Life Answer Date Recorded Purpose and direction in life Unknown Sex and Gender Information Value Date Recorded Sex Assigned at Not on file Legal Sex Male 12:03 PM EDT Gender Identity Not on file Sexual Orientation Not on file documented as of this encounter Plan of Treatment Upcoming Encounters Date Type Department Care Team ([facility] st Contact Info) Description 10/08/2024 1:45 PM EDT Office Visit [facility] [address] [facility] [place] [address] Addison Cox MD [address] [facility], [address] [place], [place] [phone] 10/12/2024 12:45 PM EDT Office Visit Kristine Dumont [facility] Center - Medical Oncology [address] [place] [address] [place] [address] [place] [address] [address] [place] [address] documented as of this encounter Visit Diagnoses Not on filedocumented in this encounter Additional Health Concerns Assessment Noted Time PHQ-9 Depression Total Score: 1 09/11/19 20 1:53 PM EDT documented as of this encounter Care Teams Dynamite Packing Machine Feeder Relationship Specialty Start Date End Date Agusto Chambers DO [address] [place] [address], [facility] [address], [address] [place], [place] [phone] PCP - General Family Medicine 06/14/24 documented as of this encounter
--- OUTSIDE RECORDS SUMMARY | 2024-09-11 00:11 | XMS_ITS | Encounter Summary ---
Author Organization [employer] Address [id number] [address] 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
--- OUTSIDE RECORDS SUMMARY | 2024-09-11 00:11 | XMS_ITS | Encounter Summary ---
Author Organization [employer] Address [id number] [address] [place] [address] Care Team Providers Care Audio Video Tech Name Role Phone Agusto Chambers DO Primary Care Provider [phone] Encounter Details Date Type Department Care Team (Late st Contact Info) Description 08/31/2024 Documentation [facility] - Medical Oncology [address] [place] [address] Endy Osman, RN Social History Tobacco Use Types Packs/Day Years [...] on file documented as of this encounter Progress Notes * Endy Osman RN - 08/31/2024 12:26 PM EDT Seen by Dr. Azevedo today. Instructed to give [employer] info on ramucirumab and docetaxel. Will call patient when approved by insurance to schedule treatment. 6 week f/u scheduled. documented in this encounter Plan of Treatment Upcoming Encounters Date Type Department Care Team ([facility] Contact Info) Description 10/08/2024 1:45 PM EDT Office Visit [facility] [address] [place] [address] Addison Cox MD [address] [facility], [address] [place] [address] 10/12/2024 12:45 PM EDT Office Visit [facility] [address] [place] [address] Bryon Azevedo MD [address] [facility] [address] [place] [address] documented as of this encounter [...] documented as of this encounter Care Teams Audio Video Tech Relationship Specialty Start Date End Date Agusto Chambers DO [address] [place] [address], [place] [address] PCP - General Family Medicine 06/14/24 documented as of this encounter
--- OUTSIDE RECORDS SUMMARY | 2024-09-11 00:11 | XMS_ITS | Encounter Summary ---
Author Organization [employer] Address [id number] [address] 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 ([facility]) Social History Tobacco Use Types Packs/Day Years [...] Pulmonary/Sleep Medicine [address] [facility] [place] [address] Addison Cox MD [address] [facility], [address] [place] [address] 10/12/2024 12:45 PM EDT Office Visit [facility] On[facility] [address] [place] [address] Bryon Azevedo MD [address] [facility] [address] [place] [address] documented as of this encounter [...] documented as of this encounter Care Teams Real Estate Director Relationship Specialty Start Date End Date Agusto Chambers DO [address] [facility], [facility], [place] [address] PCP - General Family Medicine 06/14/24 documented as of this encounter
--- OUTSIDE RECORDS SUMMARY | 2024-09-11 00:12 | XMS_ITS | Encounter Summary ---
Author Organization [employer] Address [id number] [address] [place] [address] Care Team Providers Care Lens Block Gauger Name Role Phone Agusto Chambers DO Primary Care Provider [phone] Encounter Details Date Type Department Care Team (Late st Contact Info) Description 03/28/2024 Orders Only [facility] - Radiation Oncology [address] [place] [address] Tess Sanon RN Social History Tobacco Use Types Packs/Day [...] Upcoming Encounters Date Type Department Care Team ([facility] st Contact Info) Description 10/08/2024 1:45 PM EDT Office Visit [facility] Pulmonary/Sleep Medicine [address] [place] [phone] Addison Cox MD [address] [facility], [address] [place], [place] [id number] 10/12/2024 12:45 PM EDT Office Visit Kristine Dumont [facility] - Medical Oncology [address] [place] [phone] [place] [address] [place] [address] [address] [place] [address] documented as of this encounter Visit Diagnoses Not on filedocumented in this encounter Additional Health Concerns Assessment Noted Time PHQ-9 Depression Total Score: 1 09/11/19 20 1:53 PM EDT documented as of this encounter Care Teams Lens Block Gauger Relationship Specialty Start Date End Date Agusto Chambers DO [address] [place] [address], [facility] [address], [address] [place], [place] [id number] PCP - General Family Medicine 06/14/24 documented as of this encounter
--- OUTSIDE RECORDS SUMMARY | 2024-09-11 00:12 | XMS_ITS | Encounter Summary ---
Author Organization [employer] Address [id number] [address] 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 Never True 09/16/2023 Within the past 12 months th e food we bought just didn't last and we didn't have money to get more. 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
--- OUTSIDE RECORDS SUMMARY | 2024-09-11 00:12 | XMS_ITS | Encounter Summary ---
Author Organization [employer] Address [id number] [address] 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 ([facility]-HCC) (Primary Dx); Squamous cell carcinoma of right lung ([facility]-HCC); Metastatic non-small cell lung cancer ([facility]-HCC) Social History Tobacco Use Types Packs/Day Years [...] Office Visit [facility] [address] [place] [address] Addison Cox MD [address] [facility] [place] [address] 10/12/2024 12:45 PM EDT Office Visit [facility] - Medical On[facility] [address] [place] [address] Bryon Azevedo MD [address] [address] [place] [address] Scheduled Orders Name Type Priority Associated Diagnoses Orde r Schedule Unlisted Lab Test Lab Routine 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) Metastatic non-small cell lung cancer (CMS-HCC) 1 Occurrences starting 09/20/2023 until 09/19/2024 Unlisted Lab Test Lab Routine 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) Metastatic non-small cell lung cancer (CMS-HCC) 1 Occurrences starting 09/20/2023 until 09/19/2024 documented as of this encounter Visit Diagnoses Diagnosis 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
--- OUTSIDE RECORDS SUMMARY | 2024-09-11 00:12 | XMS_ITS ---
Author Organization [employer] Address [id number] [address] [place] [address] Care Team Providers Care Fire Eater Name Role Phone Agusto Chambers DO Primary Care Provider Transitional Care Management Status:Closed (Closed) Start date:08/30/2024 End date:08/31/2024 Close reason:Call completed Continued Care and Services Coordination
--- OUTSIDE RECORDS SUMMARY | 2024-09-11 00:12 | XMS_ITS | Encounter Summary ---
Author Organization [facility] Address [address] [place] [address] Care Team Providers Care Piece Work Inspector Name Role Phone Addison Ortiz MD Unavailable [phone] Galdino Frye MD Unavailable [phone] Reason for Visit * Reason Comments Med Refill Encounter Details Date Type Department Care Team (Late st Contact Info) Description 09/05/2024 Refill [facility] [address] [place] [address] Harrison Kearney MD [address] [place] [address] Persistent atrial fibrillation (CMS/HCC) (Primary Dx) Social History Tobacco Use Types Packs/Day Years Used Date Smoking Tobacco: Former Cigarettes 2 30 0 04/1992 - 04/2022 Passive Smoke Exposure: Past Smokeless Tobacco: Current Chew Alcohol Use Standard Drinks/Week Comments Not Currently 0 (1 standard drink = 0.6 oz pur e alcohol) [facility] Utilities Answer Date Recorded In the past 12 months has [employer] electric, gas, oil, or water company threatened to shut off services in your home? No 11/30/2023 Humiliation, Afraid, Rape, and Kick questionnair e Answer Date Recorded Within the last year, have y ou been afraid of your partner or ex-partner? No 11/30/2023 Emotionally Abused Not on file 11/30/2023 Physically Abused Not on file 11/30/2023 Sexually Abused Not on file 11/30/2023 AUDIT-C Answer Date Recorded Q1: How often do you have a drink containing alcohol? Never 11/30/2023 Q2: How many drinks containi ng alcohol do you have on a typical day when you are drinking? Patient does not drink Q3: How often do you have si x or more drinks on one occasion? Never 11/30/2023 Overall Financial Resource Strain (CARDIA) Answe r Date Recorded How hard is it for you to pa y for the very basics like food, housing, medical care, and heating? Not hard at all 11/30/2023 PHQ-2 Answer Date Recorded Patient Health Questionnaire-2 Score 0 11/30/2023 Exercise Vital Sign Answer Date Recorde d On average, how many days pe r week do you engage in moderate to strenuous exercise (like a brisk walk)? 3 days 11/30/2023 On average, how many minutes do you engage in exercise at this level? 30 min 11/30/2023 Transportation Answer Date Recorded In the past 12 months, has l ack of transportation kept you from medical appointments or from getting medications? No 11/30/2023 Lack of Transportation (Non-Medical) Not on file 11/30/2023 Housing Stability Vital Sign Answer Clifford e Recorded Unable to Pay for Housing in the Last Year Not o n file 11/30/2023 Number of Places Lived in the Last Year Not on f ile 11/30/2023 In the last 12 months, was t here a time when you did not have a steady place to sleep or slept in a snf (including now)? No 11/30/2023 Hunger Vital Sign Answer Date Recorded Within the past 12 months, y ou worried that your food would run out before you got the money to buy more. Never true 11/30/19 24 Ran Out of Food in the Last Year Not on file 11/30/2023 Sex and Gender Information Value Date Recorded Sex Assigned at Male 03/14/2024 10:50 AM EST Legal Sex Male 10:20 AM EDT Gender Identity Male 03/14/2024 10:50 AM EST Sexual Orientation Heterosexual or Straight 02/22 10:50 AM EST documented as of this encounter Plan of Treatment Upcoming Encounters Date Type Department Care Team (Late st Contact Info) Description 09/11/2024 11:00 AM EDT Office Visit [facility] [address] [place] [address] Harrison Kearney MD [address] [place] [phone] documented as of this encounter Visit Diagnoses Diagnosis Persistent atrial fibrillation (CMS/HCC)- Primary Atrial fibrillation documented in this encounter Care Teams Piece Work Inspector Relationship Specialty Start Date End Date Addison Ortiz MD Hematology and Oncology 07/09/22 Galdino Frye MD [address] [place] [facility] [phone] Surgeon Pulmonary Disease 07/09/22 documented as of this encounter
--- OUTSIDE RECORDS SUMMARY | 2024-09-11 00:12 | XMS_ITS ---
Author Organization [facility] Address [address] [place] [address] Care Team Providers Care Audio/Visual Operator Name Role Phone Addison Ortiz MD Unavailable [phone] Galdino Frye MD Unavailable [phone] Active Problems Problem Noted Date Diagnosed Date Anxiety 04/26/2024 Metastatic non-small cell lung cancer 01/26/2024 Persistent atrial fibrillation 12/05/2023 Chronic HFrEF (heart failure with reduced ejection fraction) 11/14/2023 Assessment & Plan (11/24/2023 2:25 PM EDT): [facility] II currently euvolemic without exacerbation. Continue GDMT- toprol, farxiga, aldactone Diuretic therapy Monitor daily weights, I&O, fluid restriction 1.5-2L/day, renal function and electrolytes- please maintain K+>4 and Mg > 2 Primary hypertension 11/14/2023 Obesity (BMI 30-39.9) 11/14/2023 Paroxysmal atrial fibrillation 11/14/2023 Assessment & Plan (11/24/2023 2:28 PM EDT): ECG today has returned to A fib- HR 108-130 bpm Will increase toprol to 100 mg in am and 50 mg in pm, continue amiodarone 200 mg daily. Will D/W Dr Kearney regarding possible ablation- A fib vs AV node ablation and +/- Perm pacemaker implantation. All these procedures were d/w pt and risk vs benefits- pt voiced understanding and agreement. Afib ablation would require placement of multiple catheters in the heart under moderate sedation which will include diagnostic catheters, ICE catheters and ablation catheters. The risk of the procedures can be described as minor and major minor complications being discomfort in the groin area, bleeding, infection and vascular complications at this fistula formation, pseudoaneurysm, nerve injury. Major complications would include catheter induced cardiac perforation leading to tamponade/ pericardial effusion which may or may not require surgical intervention. Other complications are phrenic nerve injury leading to paralysis, thromboembolism including pulmonary and systemic event leading to stroke or endorgan injury or or PV stenosis or AE fistula as post ablation adverse effects. There could be a possibility of catheter induced valve entrapment which may require surgical intervention and valve replacement. Given that these procedures are performed under x-ray, they could be acute or long-term side effects from radiation . Gven the comorbidities, the likelihood of attaining sinus rhythm would be ~75% and reiterated the importance of weight loss and an exercise regimen as well as treatment of sleep apnea which would be beneficial in long-term maintenance of sinus rhythm based on data from LEGACY and CARDIOFIT trials. Overall the risk of these complications ranged anywhere from 1-5%. Patient verbalized understanding and have agreed to proceed with the procedure. Atrial fibrillation with rapid ventricular respo nse 11/07/2023 Hypomagnesemia 11/07/2023 Hypoalbuminemia 11/07/2023 Other specified anemias 11/07/2023 Squamous cell carcinoma of lung, stage IV 2023 Chronic atrial fibrillation 11/06/2023 Acute on chronic heart failu re with preserved ejection fraction 11/06/2023 Community acquired pneumonia, bilateral 11/05/19 Shortness of breath 11/02/2023 Lung cancer 11/02/2023 Aching headache 08/05/2023 Non-small cell lung cancer m etastatic to 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 06/16/2023 Former smoker 05/17/2023 High risk medication use 05/17/2023 Muscle cramp 10/27/2022 Lung mass 07/09/2022 Primary lung cancer with met astasis from lung to other site, right 07/09/2022 Hemoptysis 07/08/2022 TOLEDO (dyspnea on exertion) 04/02/2020 Leg edema 04/02/2020 Pre-diabetes 04/02/2020 Chest pain 04/01/2020 Hyperglycemia 09/14/2019 Smoking greater than 20 pack years 09/14/2019 Obstructive sleep apnea 02/08/2017 Current Treatment and Therapy Plans No current plan information found. Past Treatment and Therapy Plans No past plan information found. Lifetime Dose Tracking * Chemical Lifetime Dose Automatic Entry Manual Entr y Fluoro Time 5.4 minutes 0 minutes 5.4 minutes Air Kerma 128 mGy 0 mGy 128 mGy
--- OUTSIDE RECORDS SUMMARY | 2024-09-11 00:12 | XMS_ITS | CCD ---
Author Organization [facility] Care Team Providers Care Twine Winder Name Role Phone Ellen Izzy Majano Unavailable Unavailable Unavailable Johnnie Bruce Unavailable Danuta Centeno Unavailable NO FAMILY, PHYSICIAN Primary Care Provider Unava ilable MD Danuta Centeno Attending Provider MD Johnnie Bruce Attending Provider [phone] Unavailable Unavailable Ellen, Ms. Magana [place] [facility] Un available McGuinirais IIFermin Attending Unav ailable McGuinn II, Fermin Ledezma Referring Unav ailable Ellen, Ms. Magana [place] [facility] Un available McGuinFermin braxton II Attending Unav ailable McGuinn II, Fermin Ledezma Referring Unav ailable IZZY HUGHES Primary Care Unavailable PAY ., DR HULL Admitting Unavailable PAY ., DR HULL Attending Unavailable JOSSELYN MOMIN Consulting Unavailable PAY ., DR HULL Consulting Unavailable YAMILEX ESPINOZA Consulting Unavailable DIAB ., JAY Admitting Unavailable DIAB ., JAY Attending Unavailable MISBrock, DR TINAJERO Primary Care Unavailable DELORES GARCIA Consulting Unavailable SARIKA BAXTER Consulting Unavailable NEWJAMES, AMBIKA Consulting Unavailable DIAB ., JAY Consulting Unavailable Carlos Coates Sr. Primary Care Provider KATIE BAEZ Attending Unavailable CARLOS COATES SR Primary Care Unavai lable Unavailable Primary Care Provider Unavailabl e Generic Provider MD, No Assigned Pcp Primary Car e Provider Unavailable Generic Provider , No Assigned Pcp Primary Car e Provider Unavailable Fermin Wall Referring Unavail able Fermin Wall Attending Unavail able Fermin Wall Admitting Unavail able NO FAMILY, PHYSICIAN Primary Care Unavailable MCGUINN, FERMIN P Referring Unavailable GENERIC PROVIDER, NO ASSIGNED PCP Primary Care Unavailable KATHERINE ORELLANA Attending Unavailable KEV ORELLANAVA Referring Unavailable NO PCP, NO PCP Primary Care Unavailable LEIGHANN LOMELI Admitting Unavailable CARLOS, RYAN N Referring Unavailable NO PCP, NO PCP Primary Care Unavailable MCGUINIrais FERMIN P Attending Unavailable MCGUINN FERMIN P Attending Unavailable MCGUINN, FERMIN P Referring Unavailable GENERIC PROVIDER, NO ASSIGNED PCP Primary Care Unavailable MCGUINN FERMIN P Attending Unavailable MCGUINN, FERMIN P Referring Unavailable GENERIC PROVIDER, NO ASSIGNED PCP Primary Care Unavailable HELADIO DAVIS Attending Unavailable MCGUINN, FERMIN P Referring Unavailable GENERIC PROVIDER, NO ASSIGNED PCP Primary Care Unavailable No Pcp, No Pcp Primary Care Provider Unavailabl e CARLOS, RYAN N Referring Unavailable NO PCP, NO PCP Primary Care Unavailable No Pcp, No Pcp Primary Care Provider UnavailKatie Christian DO Primary Care Provider KATIE TORRES Attending Unavailable KATIE TORRES Primary Care Unavailable KATIE TORRES Attending Unavailable KATIE TORRES Referring Unavailable KATIE TORRES Primary Care Unavailable ADDISON COX Attending Unavailable CARLOS, RYAN N Referring Unavailable NO PCP, NO PCP Primary Care Unavailable ROHINI AVILA Referring Unavailable HARRISON CEJA Referring Unavailable HARRISON CEJA Referring Unavailable OMBALLI, SHEYLAAMED Referring Unavailable OMBALLI, SHEYLAAMED Referring Unavailable OMBALLI, SHEYLAAMED Admitting Unavailable SHAIKH CAMARENA Referring Unavailable MARGARITAROHINI Costello Attending Unavailable ROHINI AVILA Referring Unavailable BRENNA HARRISON Referring Unavailable BRENNA, HARRISON Admitting Unavailable BRENNA, HARRISON Attending Unavailable BRENNA HARRISON Referring Unavailable BRENNA, HARRISON Referring Unavailable BRENNA, HARRISON Referring Unavailable JOHNNY PANDA Attending Unavailable JUAN LUIS SEAY Referring Unavailable BARI COLÓN Attending Unavailable SUKHWINDER SCHAFER Attending Unavailable BRENNAHARRISON Attending Unavailable IZZY LA Attending Unavailable KATIE KRISHNAMURTHY Attending Unavailable SUKHWINDER SCHAFER Attending Unavailable BRENNA, HARRISON Referring Unavailable BRENNA, HARRISON Attending Unavailable BRENNA, HARRISON Admitting Unavailable BRENNA, HARRISON Attending Unavailable HARRISON CEJA Admitting Unavailable HARRISON CEJA Attending Unavailable AMARILIS, SHEYLAAMED Referring Unavailable SUKHWINDER SCHAFER Referring Unavailable ROHINI AVILA Referring Unavailable CARLEE HI Attending Unavailable PÉREZ, MOHAMMAD H Referring Unavailable NO PCP, NO PCP Primary Care Unavailable PÉREZ, MOHAMMAD H Referring Unavailable NO PCP, NO PCP Primary Care Unavailable PHYSICIAN, UNKNOWN Referring Unavailable NO PCP, NO PCP Primary Care Unavailable PÉREZ, MOHAMMAD H Referring Unavailable NO PCP, NO PCP Primary Care Unavailable CARLOS, RYAN N Attending Unavailable CARLOS, RYAN N Referring Unavailable NO PCP, NO PCP Primary Care Unavailable CARLOS, RYAN N Attending Unavailable PÉREZ, MOHAMMAD H Referring Unavailable NO PCP, NO PCP Primary Care Unavailable CARLOS, RYAN N Attending Unavailable CARLOS, RYAN N Referring Unavailable NO PCP, NO PCP Primary Care Unavailable PÉREZ, MOHAMMAD H Referring Unavailable NO PCP, NO PCP Primary [...] CARLOS, RYAN N Attending Unavailable PÉREZ, MOHAMMAD H Referring Unavailable NO PCP, NO PCP Primary [...] CARLOS, RYAN N Attending Unavailable PÉREZ, MOHAMMAD H Referring Unavailable NO PCP, NO PCP Primary [...] Care Unavailable CARLOS, RYAN N Referring Unavailable HERNESTO, ANNE Referring Unavailable NO PCP, NO PCP Primary Care Unavailable HERNESTO, ANNE Referring Unavailable NO PCP, NO PCP Primary Care Unavailable HERNESTO, ANNE Referring Unavailable NO PCP, NO PCP Primary Care Unavailable HERNESTO, ANNE Referring Unavailable NO PCP, NO PCP Primary Care Unavailable HERNESTO, ANNE Referring Unavailable NO PCP, NO PCP Primary Care Unavailable HERNESTO, ANNE Referring Unavailable NO PCP, NO PCP Primary Care Unavailable HERNESTO, ANNE Referring Unavailable NO PCP, NO PCP Primary Care Unavailable CARLOS, RYAN N Referring Unavailable NO PCP, NO PCP Primary Care Unavailable HERNESTO, ANNE Referring Unavailable NO PCP, NO PCP Primary Care Unavailable HERNESTO, ANNE Referring Unavailable NO PCP, NO PCP Primary Care Unavailable HERNESTO, ANNE Referring Unavailable NO PCP, NO PCP Primary Care Unavailable HERNESTO, ANNE Referring Unavailable NO PCP, NO PCP Primary Care Unavailable HERNESTO, ANNE Referring Unavailable NO PCP, NO PCP Primary Care Unavailable HERNESTO, ANNE Referring Unavailable NO PCP, NO PCP Primary Care Unavailable HERNESTO, ANNE Referring Unavailable NO PCP, NO PCP Primary Care Unavailable HERNESTO, ANNE Referring Unavailable NO PCP, NO PCP Primary Care Unavailable HERNESTO, ANNE Referring Unavailable NO PCP, NO PCP Primary Care Unavailable HERNESTO, ANNE Referring Unavailable NO PCP, NO PCP Primary Care Unavailable HERNESTO, ANNE Referring Unavailable NO PCP, NO PCP Primary Care Unavailable HERNESTO, ANNE Referring Unavailable NO PCP, NO PCP Primary Care Unavailable HERNESTO, ANNE Referring Unavailable NO PCP, NO PCP Primary Care Unavailable HERNESTO, ANNE Referring Unavailable NO PCP, NO PCP Primary Care Unavailable HERNESTO, ANNE Referring Unavailable NO PCP, NO PCP Primary Care Unavailable HERNESTO, ANNE Referring Unavailable NO PCP, NO PCP Primary Care Unavailable CARLOS, RYAN N Attending Unavailable PÉREZ, MOHAMMAD H Referring Unavailable NO PCP, NO PCP Primary Care Unavailable HERNESTO, ANNE Referring Unavailable NO PCP, NO PCP Primary Care Unavailable CARLOS, RYAN N Referring Unavailable NO PCP, NO PCP Primary Care Unavailable CARLOS, RYAN N Referring Unavailable NO PCP, NO PCP Primary Care Unavailable HERNESTO, ANNE Referring Unavailable NO PCP, NO PCP Primary Care Unavailable CARLOS, RYAN N Referring Unavailable NO PCP, NO PCP Primary Care Unavailable HERNESTO, ANNE Referring Unavailable NO PCP, NO PCP Primary Care Unavailable CONNOR GONZALEZ Referring Unavailable NO PCP, NO PCP Primary Care Unavailable CONNOR GONZALEZ Attending Unavailable PÉREZ, MOHAMMAD H Referring Unavailable NO PCP, NO PCP Primary Care Unavailable CONNOR GONZALEZ Referring Unavailable NO PCP, NO PCP Primary Care Unavailable CARLOSCONNOR Attending Unavailable PÉREZ, MOHAMMAD H Referring Unavailable NO PCP, NO PCP Primary Care Unavailable BADIK, KATIE D Referring Unavailable BADIK, KATIE D Primary Care Unavailable BADIK, KATIE D Referring Unavailable BADIK, KATIE D Primary Care Unavailable BADIK, KATIE D Referring Unavailable BADIK, KATIE D Primary Care Unavailable BADIK, KATIE D Referring Unavailable BADIK, KATIE D Primary Care Unavailable CARLOS, CONNOR N Attending Unavailable PÉREZ, MOHAMMAD H Referring Unavailable BADIK, KATIE D Primary Care Unavailable BADIK, KATIE D Referring Unavailable BADIK, KATIE D Primary Care Unavailable BADIK, KATIE D Referring Unavailable BADIK, KATIE D Primary Care Unavailable BADIK, KATIE D Referring Unavailable BADIK, KATIE D Primary Care Unavailable BADIK, KATIE D Referring Unavailable BADIK, KATIE D Primary Care Unavailable BADIK, KATIE D Referring Unavailable BADIK, KATIE D Primary Care Unavailable BADIK, KATIE D Referring Unavailable BADIK, KATIE D Primary Care Unavailable BADIK, KATIE D Primary Care Unavailable CONNOR GONZALEZ Consulting Unavailable KEREN LANDRUM U Admitting Unavailable KEREN LANDRUM Attending Unavailable CONNOR GONZALEZ Attending Unavailable PÉREZ, MOHAMMAD H Referring Unavailable BADIK, KATIE D Primary Care Unavailable Allergies Allergy Classification Reported Allergen(s) Allergy Type Date of Onset Reaction(s) Facility (20 sources) celecoxib; Translations: [CELECOXIB] Drug Allergy 1 GI Upset [facility] Work Phone: (20 sources) metaxalone; Translations: [METAXALONE] Drug Allergy 1 GI Upset [facility] Work Phone: (3 sources) Metoprolol; Translations: [METOPROLOL SUCCINATE] Drug Allergy 4 Drowsiness [facility] (20 sources) OTHER; Translations: [OTHER] Propensity to adverse reactions (disorder) 5 Nausea And Vomiting, Other (See Comments) [facility] Medications Current Medications Medication Drug Class(es) Dates Sig (Normalized) Sig (Original) [id number] 200 actuat albuterol 0.09 mg/actuat metered dose inhaler (20 sources) beta2-Adrenergic Agonist Start: 09-05-2023 End: 08-13-2024 take 2 puff(s) by inhalation every six hours as needed for wheezing albuterol (PROVENTIL HFA;VENTOLIN HFA) 90 mcg/actuation inhaler Indications: 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 60 tablet 11 07/05/2022 Active aspirin 81 mg chewable tablet (2 sources) Platelet Aggregation Inhibitor, Nonsteroidal Anti-inflammatory Drug take 1 tablet by mouth every twenty-four hours Aspirin 81 MG 1 tablet Orally Once a day for 30 days Active carvedilol 3.125 mg oral tablet (1 source) alpha-Adrenergic Marcio, beta-Adrenergic Marcio Start: 09-23-2023 End: 09-22-2024 take 1 tablet by mouth twice daily carvedilol (Coreg) 3.125 mg tablet Indications: Hypertension, unspecified type Take 1 tablet (3.125 mg) by mouth 2 times daily (morning and late afternoon). 180 tablet 3 09/23/2023 09/22/2024 Active dapagliflozin 10 mg oral tablet (20 sources) Sodium-Glucose Cotransporter 2 Inhibitor take 1 tablet by mouth in the morning dapagliflozin propanediol (FARXIGA) 10 mg tablet Take 1 tablet (10 mg total) by mouth in the morning. Active dilTIAZem hydrochloride 30 mg oral tablet (20 sources) Calcium Channel Marcio Start: 07-20-2023 End: 07-19-2024 take 1 tablet by mouth twice daily dilTIAZem (Cardizem) 30 mg immediate release tablet Indications: Paroxysmal atrial fibrillation (Multi) Take 1 tablet (30 mg) by mouth 2 times a day. 180 tablet 3 07/20/2023 07/19/2024 Active doxycycline hyclate 100 mg oral tablet (20 sources) Tetracycline-class Drug Start: 06-28-2024 take 1 tablet by mouth in the morning, then take 1 tablet by mouth at bedtime doxycycline (VIBRA-TABS) 100 mg tablet Take 1 tablet (100 mg total) by mouth in the morning and 1 tablet (100 mg total) before bedtime. 06/28/2024 Active Start: 03-26-2024 End: 04-05-2024 take 1 tablet by mouth in the morning, then take 1 tablet by mouth at bedtime doxycycline (VIBRA-TABS) 100 mg tablet Take 1 tablet (100 mg total) by mouth in the morning and 1 tablet (100 mg total) before bedtime. 03/26/2024 04/05/2024 Active 12 hr guaiFENesin 600 mg extended release oral tablet (20 sources) Start: 07-20-2024 take 1 tablet by mouth once guaiFENesin (MUCINEX) 600 mg tablet extended release 12hr Take 1 tablet (600 mg total) by mouth every 12 (twelve) hours. 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 60 tablet 3 11/17/2023 Active 24 hr metoprolol succinate 200 mg extended release oral tablet (20 sources) beta-Adrenergic Marcio Start: 12-01-2022 End: 12-01-2023 take 1 tablet [...] : 03-Aug-2022 Active new start Start: 07-07-2022 End: 09-16-2023 take 1 tablet by mouth every twenty-four hours at bedtime metoprolol succinate XL (TOPROL XL) 50 mg 24 hr tablet Take 1 tablet (50 mg total) by mouth in the morning and at bedtime. 180 tablet 3 07/07/2022 09/16/2023 Discontinued take 1 tablet by stanislaw th in the morning metoprolol tartrate (LOPRESSOR) 100 mg tablet Take 1 tablet (100 mg total) by mouth in the morning. Active multivitamin (MEN'S MULTI-VITAMIN) tablet (20 sources) take 1 tablet by stanislaw th in the morning multivitamin (MEN'S MULTI-VITAMIN) tablet Take 1 tablet by mouth in the morning. Active take 1 tablet by mouth in the mo rning multivitamin (MEN'S MULTI-VITAMIN) tablet Take 1 tablet by mouth in the morning. 0 Active naproxen 250 mg oral tablet (20 sources) Nonsteroidal Anti-inflammatory Drug Start: 10-14-2021 take 1-2 tablets by mouth twice daily at mealtime Naproxen 250 MG 1-2 tablet with food or milk Orally Twice a day for 30 day(s) Sep, Active take 2 tablets by mo uth in the morning, then take 2 tablets by mouth at mealtime naproxen sodium (ALEVE) 220 mg tablet Take 2 tablets (440 mg total) by mouth in the morning and 2 tablets (440 mg total) in the evening. Take with meals. 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 10 tablet 09/13/2023 09/23/2023 Active spironolactone 50 mg oral tablet (20 sources) Aldosterone Antagonist take 1 tablet by mouth in the morning spironolactone (ALDACTONE) 50 mg tablet Take 1 tablet (50 mg total) by mouth in the morning. Active sulfamethoxazole 800 mg / trimethoprim 160 mg oral tablet (1 source) Dihydrofolate Reductase Inhibitor Antibacterial, Sulfonamide Antimicrobial Start: 10-04-2023 End: 10-09-2023 take 1 tablet by mouth once in the morning sulfamethoxazole-tr imethoprim (BACTRIM DS) 800-160 mg per tablet Take 1 tablet by mouth in the morning and 1 tablet before bedtime. Do all this for 5 days. 10 tablet 10/04/2023 10/09/2023 Active Completed/Discontinued Medications Medication Drug Class(es) Dates Sig (Normalized) Sig (Original) amiodarone hydrochloride 200 mg oral tablet (20 sources) Antiarrhythmic Start: 05-17-2023 End: 11-13-2023 take 1 tablet by mouth twice daily amiodarone (Pacerone) 200 mg tablet Indications: Paroxysmal atrial fibrillation (Multi) Take 1 tablet (200 mg) by mouth 2 times a day. 180 tablet 1 05/17/2023 07/20/2023 Discontinued (Therapy completed) buprenorphine 8 mg / naloxone 2 mg sublingual film (20 sources) Partial Opioid Agonist, Opioid Antagonist Start: 06-01-2022 buprenorphine-nal oxone (SUBOXONE) 8-2 mg film dissolve 1 FILM under the tongue twice a day 0 06/01/2022 Active buprenorphine-na loxone (SUBOXONE) 8-2 mg per SL tablet Place 1 tablet under the tongue in the morning and 1 tablet before bedtime. Active buprenorphine-na loxone (Suboxone) 8-2 mg SL tablet 1 tablet 2 times a day. Active Suboxone 8-2 MG Sublingual Film Quantity: 0 Refills: 0 Ordered: 13-Jul-2022 DO Active Buprenorphine HC l-Naloxone HCl 8-2 MG Sublingual for 14 Days Active Comment on above: dissolve 1 FILM unde r the tongue twice a day CARBOplatin (PARAPLATIN) 225 mg in sodium chloride 0.9 % 250 mL chemo IVPB (4 sources) Start: 09-06-2023 End: 09-06-2023 225 mg (Target AUC = 1.5), intravenous, at 273 mL/hr, Administer over 60 Minutes, Once, On Tue09/06/23 at 1445, For 1 dose, AUC 1.5 Look-alike/sound-alike medication - verify indication for use. Start: 08-30-2023 End: 08-30-2023 225 mg (Target AUC = 1.5), i ntravenous, at 273 mL/hr, Administer over 60 Minutes, Once, On Tue08/30/23 at 1430, For 1 dose, AUC 1.5 Look-alike/sound-alike medication - verify indication for use. Start: 08-23-2023 End: 08-23-2023 225 mg (Target AUC = 1.5), i ntravenous, at 273 mL/hr, Administer over 60 Minutes, Once, On Tue08/23/23 at 1130, For 1 dose, AUC 1.5 Look-alike/sound-alike medication - verify indication for use. Start: 08-16-2023 End: 08-16-2023 225 mg (Target AUC = 1.5), i ntravenous, at 273 mL/hr, Administer over 60 Minutes, Once, On Tue08/16/23 at 1545, For 1 dose, AUC 1.5 Look-alike/sound-alike medication - verify indication for use. CARBOplatin (PARAPLATIN) 282.4 mg in sodium chloride 0.9 % 250 mL chemo IVPB (1 source) Start: 10-18-2023 End: 10-18-2023 282.4 mg (Target AUC = 2), intravenous, at 556 mL/hr, Administer over 30 Minutes, Once, On Tue10/18/23 at 1345, For 1 dose, Look-alike/sound-alike medication - verify indication for use. CARBOplatin (PARAPLATIN) 295 mg in sodium chloride 0.9 % 250 mL chemo IVPB (1 source) Start: 12-06-2023 End: 12-06-2023 295 mg (rounded from 295.4 m g, Target AUC = 2), intravenous, at 559 mL/hr, Administer over 30 Minutes, Once, On Tue12/06/23 at 1345, For 1 dose, Look-alike/sound-alike medication - verify indication for use. CARBOplatin (PARAPLATIN) 297 mg in sodium chloride 0.9 % 250 mL chemo IVPB (1 source) Start: 04-10-2024 End: 04-10-2024 297 mg (rounded from 297.4 m g, Target AUC = 2), intravenous, at 559 mL/hr, Administer over 30 Minutes, Once, On Tue04/10/24 at 1315, For 1 dose, Look-alike/sound-alike medication - verify indication for use. CARBOplatin (PARAPLATIN) 300 mg in dextrose 5 % in water (D5W) 250 mL chemo IVPB (1 source) Start: 01-10-2024 End: 01-10-2024 300 mg (Target AUC = 2), intravenous, at 560 mL/hr, Administer over 30 Minutes, Once, On Tue01/10/24 at 1400, For 1 dose, Look-alike/sound-alike medication - verify indication for use. CARBOplatin (PARAPLATIN) 300 mg in sodium chloride 0.9 % 250 mL chemo IVPB (6 sources) Start: 04-24-2024 End: 04-24-2024 300 mg (Target AUC = 2), intravenous, at 560 mL/hr, Administer over 30 Minutes, Once, On Tue04/24/24 at 1415, For 1 dose, Look-alike/sound-alike medication - verify indication for use. Start: 03-27-2024 End: 03-27-2024 300 mg (Target AUC = 2), int ravenous, at 560 mL/hr, Administer over 30 Minutes, Once, On Tue03/27/24 at 1330, For 1 dose, Look-alike/sound-alike medication - verify indication for use. Start: 12-27-2023 End: 12-27-2023 300 mg (Target AUC = 2), int ravenous, at 560 mL/hr, Administer over 30 Minutes, Once, On Tue12/27/23 at 1400, For 1 dose, Look-alike/sound-alike medication - verify indication for use. Start: 11-22-2023 End: 11-22-2023 300 mg (Target AUC = 2), int ravenous, at 560 mL/hr, Administer over 30 Minutes, Once, On Tue11/22/23 at 1345, For 1 dose, Look-alike/sound-alike medication - verify indication for use. Start: 10-26-2023 End: 10-26-2023 300 mg (Target AUC = 2), int ravenous, at 560 mL/hr, Administer over 30 Minutes, Once, On Tue10/26/23 at 1330, For 1 dose, Look-alike/sound-alike medication - verify indication for use. Start: 10-11-2023 End: 10-11-2023 300 mg (Target AUC = 2), int ravenous, at 560 mL/hr, Administer over 30 Minutes, Once, On Tue10/11/23 at 1400, For 1 dose, Look-alike/sound-alike medication - verify indication for use. CARBOplatin (PARAPLATIN) 600 mg in sodium chloride 0.9 % (PVC) 250 mL chemo IVPB (2 sources) Start: 08-21-2024 End: 08-21-2024 600 mg (Target AUC = 4), intravenous, at 620 mL/hr, Administer over 30 Minutes, Once, On Tue08/21/24 at 1430, For 1 dose, Look-alike/sound-alike medication - verify indication for use. Start: 07-24-2024 End: 07-24-2024 600 mg (Target AUC = 4), int ravenous, at 620 mL/hr, Administer over 30 Minutes, Once, On Tue07/24/24 at 1415, For 1 dose, Look-alike/sound-alike medication - verify indication for use. CARBOplatin (PARAPLATIN) 600 mg in sodium chloride 0.9 % 250 mL chemo IVPB (1 source) Start: 06-26-2024 End: 06-26-2024 600 mg (Target AUC = 4), intravenous, at 620 mL/hr, Administer over 30 Minutes, Once, On Tue06/26/24 at 1430, For 1 dose, Look-alike/sound-alike medication - verify indication for use. cefpodoxime 200 mg oral tablet (1 source) Cephalosporin Antibacterial Start: 05-30-2022 take 2 tablets by mouth every twelve hours cefpodoxime (VANTIN) 200 mg tablet Take 400 mg by mouth every 12 hours. 0 05/30/2022 Active Comment on above: Take 400 mg by mouth every 12 hours. 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 60 tablet 2 06/20/2024 08/31/2024 Discontinued Start: 01-10-2024 End: 01-10-2024 12 mg, intravenous, Once, On Tue01/10/24 at 1300, For 1 dose, May alter blood glucose or insulin requirements. Look-alike/sound-alike medication - verify indication for use. Start: 12-27-2023 End: 12-27-2023 12 mg, intravenous, Once, On Tue12/27/23 at 1300, For 1 dose, May alter blood glucose or insulin requirements. Look-alike/sound-alike medication - verify indication for use. Start: 12-06-2023 End: 12-06-2023 12 mg, intravenous, Once, On Tue12/06/23 at 1245, For 1 dose, May alter blood glucose or insulin requirements. Look-alike/sound-alike medication - verify indication for use. 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) Take 2 tablets (8 mg) by mouth once daily on days 2,3, 9&10, 16&17 60 tablet 2 08/10/2023 09/16/2023 Discontinued dexAMETHasone (DECADRON) 12 mg in sodium chloride 0.9 % (PVC) 50 mL IVPB (2 sources) Start: 08-07-2024 End: 08-07-2024 intravenous, at 212 mL/hr, Administer over 15 Minutes, Once, On Tue08/07/24 at 1330, For 1 dose Start: 07-10-2024 End: 07-10-2024 intravenous, at 212 mL/hr, A dminister over 15 Minutes, Once, On Tue07/10/24 at 1400, For 1 dose dexAMETHasone (DECADRON) 12 mg, diphenhydrAMINE (BENADRYL) 25 mg in dextrose 5 % in water (D5W) 50 mL IVPB (3 sources) Start: 09-06-2023 End: 09-06-2023 intravenous, at 214 mL/hr, Administer over 15 Minutes, Once, On Tue09/06/23 at 1245, For 1 dose Start: 08-30-2023 End: 08-30-2023 intravenous, at 214 mL/hr, A dminister over 15 Minutes, Once, On Tue08/30/23 at 1300, For 1 dose Start: 08-23-2023 End: 08-23-2023 intravenous, at 214 mL/hr, A dminister over 15 Minutes, Once, On Tue08/23/23 at 1000, For 1 dose dexAMETHasone (DECADRON) 12 mg, palonosetron (ALOXI) 0.25 mg in sodium chloride 0.9 % (PVC) 50 mL IVPB (2 sources) Start: 08-21-2024 End: 08-21-2024 intravenous, at 232 mL/hr, Administer over 15 Minutes, Once, On Tue08/21/24 at 1200, For 1 dose Start: 07-24-2024 End: 07-24-2024 intravenous, at 232 mL/hr, A dminister over 15 Minutes, Once, On Tue07/24/24 at 1145, For 1 dose dexAMETHasone (DECADRON) 12 mg, palonosetron (ALOXI) 0.25 mg in sodium chloride 0.9 % 50 mL IVPB (8 sources) Start: 06-26-2024 End: 06-26-2024 intravenous, at 232 mL/hr, Administer over 15 Minutes, Once, On Tue06/26/24 at 1200, For 1 dose Start: 04-24-2024 End: 04-24-2024 intravenous, at 232 mL/hr, A dminister over 15 Minutes, Once, On Tue04/24/24 at 1315, For 1 dose Start: 04-10-2024 End: 04-10-2024 intravenous, at 232 mL/hr, A dminister over 15 Minutes, Once, On Tue04/10/24 at 1215, For 1 dose Start: 03-27-2024 End: 03-27-2024 intravenous, at 232 mL/hr, A dminister over 15 Minutes, Once, On Tue03/27/24 at 1230, For 1 dose Start: 11-22-2023 End: 11-22-2023 intravenous, at 232 mL/hr, A dminister over 15 Minutes, Once, On Tue11/22/23 at 1245, For 1 dose Start: 10-26-2023 End: 10-26-2023 intravenous, at 232 mL/hr, A dminister over 15 Minutes, Once, On Tue10/26/23 at 1230, For 1 dose Start: 10-18-2023 End: 10-18-2023 intravenous, at 232 mL/hr, A dminister over 15 Minutes, Once, On Tue10/18/23 at 1245, For 1 dose Start: 10-11-2023 End: 10-11-2023 intravenous, at 232 mL/hr, A dminister over 15 Minutes, Once, On Tue10/11/23 at 1300, For 1 dose dexAMETHasone (DECADRON) 20 mg, diphenhydrAMINE (BENADRYL) 50 mg in dextrose 5 % in water (D5W) 50 mL IVPB (1 source) Start: 08-16-2023 End: 08-16-2023 intravenous, at 224 mL/hr, Administer over 15 Minutes, Once, On Tue08/16/23 at 1345, For 1 dose 2 ml famotidine 10 mg/ml injection (4 sources) Histamine-2 Receptor Antagonist Start: 09-06-2023 End: 07-16-2024 20 mg, intravenous, Once, On Tue09/06/23 at 1245, For 1 dose, Dilute to total volume of 5 mL with 0.9% sod chl and administer IVP over 2 minutes. Start: 08-30-2023 End: 08-30-2023 20 mg, intravenous, Once, On Tue08/30/23 at 1300, For 1 dose, Dilute to total volume of 5 mL with 0.9% sod chl and administer IVP over 2 minutes. Start: 08-23-2023 End: 08-23-2023 20 mg, intravenous, Once, On Tue08/23/23 at 1000, For 1 dose, Dilute to total volume of 5 mL with 0.9% sod chl and administer IVP over 2 minutes. Start: 08-16-2023 End: 08-16-2023 20 mg, intravenous, Once, On Tue08/16/23 at 1345, For 1 dose, Dilute to total volume of 5 mL with 0.9% sod chl and administer IVP over 2 minutes. fosaprepitant (EMEND) 150 mg in sodium chloride 0.9 % (PVC) 150 mL IVPB (2 sources) Start: 08-21-2024 End: 08-21-2024 150 mg, intravenous, at 300 mL/hr, Administer over 30 Minutes, Once, On Tue08/21/24 at 1200, For 1 dose Start: 07-24-2024 End: 07-24-2024 150 mg, intravenous, at 300 mL/hr, Administer over 30 Minutes, Once, On Tue07/24/24 at 1145, For 1 dose fosaprepitant (EMEND) 150 mg in sodium chloride 0.9 % 150 mL IVPB (10 sources) Start: 06-26-2024 End: 06-26-2024 150 mg, intravenous, at 300 mL/hr, Administer over 30 Minutes, Once, On Tue06/26/24 at 1200, For 1 dose Start: 04-24-2024 End: 04-24-2024 150 mg, intravenous, at 300 mL/hr, Administer over 30 Minutes, Once, On Tue04/24/24 at 1315, For 1 dose Start: 04-10-2024 End: 04-10-2024 150 mg, intravenous, at 300 mL/hr, Administer over 30 Minutes, Once, On Tue04/10/24 at 1215, For 1 dose Start: 03-27-2024 End: 03-27-2024 150 mg, intravenous, at 300 mL/hr, Administer over 30 Minutes, Once, On Tue03/27/24 at 1230, For 1 dose Start: 12-27-2023 End: 12-27-2023 150 mg, intravenous, at 300 mL/hr, Administer over 30 Minutes, Once, On Tue12/27/23 at 1300, For 1 dose Start: 12-06-2023 End: 12-06-2023 150 mg, intravenous, at 300 mL/hr, Administer over 30 Minutes, Once, On Tue12/06/23 at 1245, For 1 dose Start: 11-22-2023 End: 11-22-2023 150 mg, intravenous, at 300 mL/hr, Administer over 30 Minutes, Once, On Tue11/22/23 at 1245, For 1 dose Start: 10-26-2023 End: 10-26-2023 150 mg, intravenous, at 300 mL/hr, Administer over 30 Minutes, Once, On Tue10/26/23 at 1230, For 1 dose Start: 10-18-2023 End: 10-18-2023 150 mg, intravenous, at 300 mL/hr, Administer over 30 Minutes, Once, On Tue10/18/23 at 1245, For 1 dose Start: 10-11-2023 End: 10-11-2023 150 mg, intravenous, at 300 mL/hr, Administer over 30 Minutes, Once, On Tue10/11/23 at 1300, For 1 dose fosaprepitant (EMEND) 150 mg in sodium chloride 0.9 % 250 mL IVPB (1 source) Start: 01-10-2024 End: 01-10-2024 150 mg, intravenous, at 500 mL/hr, Administer over 30 Minutes, Once, On Tue01/10/24 at 1300, For 1 dose furosemide 20 mg oral tablet (20 sources) Loop Diuretic Start: 11-14-2023 End: 11-17-2023 take 1 tablet by mouth once daily furosemide (LASIX) 20 mg tablet Indications: Leg edema, right Take 1 tablet by mouth once daily 30 tablet 11/14/2023 11/17/2023 Discontinued Start: 08-29-2020 End: 11-14-2023 take 1 tablet by mouth once daily furosemide (LASIX) 20 mg tablet Indications: Leg edema, right Take 1 tablet (20 mg total) by mouth daily. 30 tablet 1 09/16/2023 11/14/2023 Discontinued Comment on above: Take 20 mg by mouth once daily. gemcitabine (GEMZAR) 2,400 mg in sodium chloride 0.9 % (PVC) 250 mL chemo IVPB (4 sources) Start: 08-21-2024 End: 08-21-2024 2,400 mg (rounded from 2,460 mg = 1,000 mg/m2 2.46 m2 Treatment Plan BSA from Recorded weight), intravenous, at 626 mL/hr, Administer over 30 Minutes, Once, On Tue08/21/24 at 1400, For 1 dose Start: 08-07-2024 End: 08-07-2024 2,400 mg (rounded from 2,460 mg = 1,000 mg/m2 2.46 m2 Treatment Plan BSA from Recorded weight), intravenous, at 626 mL/hr, Administer over 30 Minutes, Once, On Tue08/07/24 at 1400, For 1 dose Start: 07-24-2024 End: 07-24-2024 2,400 mg (rounded from 2,460 mg = 1,000 mg/m2 2.46 m2 Treatment Plan BSA from Recorded weight), intravenous, at 626 mL/hr, Administer over 30 Minutes, Once, On Tue07/24/24 at 1345, For 1 dose Start: 07-10-2024 End: 07-10-2024 2,400 mg (rounded from 2,460 mg = 1,000 mg/m2 2.46 m2 Treatment Plan BSA from Recorded weight), intravenous, at 626 mL/hr, Administer over 30 Minutes, Once, On Tue07/10/24 at 1430, For 1 dose gemcitabine (GEMZAR) 2,400 mg in sodium chloride 0.9 % 250 mL chemo IVPB (1 source) Start: 06-26-2024 End: 06-26-2024 2,400 mg (rounded from 2,460 mg = 1,000 mg/m2 2.46 m2 Treatment Plan BSA from Recorded weight), intravenous, at 626 mL/hr, Administer over 30 Minutes, Once, On Tue06/26/24 at 1400, For 1 dose 1 ml granisetron 1 mg/ml injection (6 sources) Serotonin-3 Receptor Antagonist Start: 09-06-2023 End: 09-06-2023 1 mg, intravenous, Once, On Tue09/06/23 at 1245, For 1 dose, Administer IVP over 30 seconds. Start: 08-30-2023 End: 08-30-2023 1 mg, intravenous, Once, On Tue08/30/23 at 1300, For 1 dose, Administer IVP over 30 seconds. Start: 08-22-2023 End: 08-23-2023 1 mg, intravenous, Once, On Tue08/23/23 at 1000, For 1 dose, Administer IVP over 30 seconds. Start: 08-16-2023 End: 08-16-2023 1 mg, intravenous, Once, On Tue08/16/23 at 1400, For 1 dose, Administr Start: 08-15-2023 End: 08-15-2023 1 mg, intravenous, Once, On Tue08/15/23 at 1445, For 1 dose, Administr heparin (20 sources) Unfractionated Heparin, Anti-coagulant Start: 08-29-2023 End: 08-29-2023 500 Units, intravenous, As needed, deaccessing, Starting on Tue08/29/23 at 1218, Heplock following NS flush. Look-alike/sound-alike medication - verify indication for use. Start: 08-23-2023 End: 08-23-2023 500 Units, intravenous, As n eeded, deaccessing, Starting on Tue08/23/23 at 0953, Heplock following NS flush. Look-alike/sound-alike medication - verify indication for use. Start: 08-22-2023 End: 08-22-2023 500 Units, intravenous, As n eeded, deaccessing, Starting on Tue08/22/23 at 1154, Heplock following NS flush. Look-alike/sound-alike medication - verify indication for use. Start: 08-16-2023 End: 08-16-2023 500 Units, intravenous, As n eeded, deaccessing, Starting on Tue08/16/23 at 1249, Heplock following NS flush. Look-alike/sound-alike medication - verify indication for use. Start: 08-15-2023 End: 08-15-2023 500 Units, intravenous, As n eeded, deaccessing, Starting on 08/15/23 at 1230, Heplock following NS flush. Look-alike/sound-alike medication - verify indication for use. Start: 08-08-2023 heparin, porci ne (PF) syringe 500 Units Start: 08-05-2023 End: 08-05-2023 500 Units, intravenous, As n eeded, deaccessing, Starting on Tue08/05/23 at 1500, Heplock following NS flush. Look-alike/sound-alike medication - verify indication for use. ibuprofen 800 mg oral tablet (20 sources) Nonsteroidal Anti-inflammatory Drug End: 09-16-2023 take 1 tablet by mouth every six hours as needed for pain ibuprofen (MOTRIN) 800 mg tablet Take 1 tablet (800 mg total) by mouth every 6 (six) hours as needed for pain. 09/16/2023 Discontinued lisinopril 10 mg oral tablet (6 sources) Angiotensin Converting Enzyme Inhibitor Start: 08-29-2020 End: 12-01-2022 take 1 tablet by mouth once daily lisinopril 10 mg tablet Take 1 tablet (10 mg) by mouth once daily. 0 08/29/2020 12/01/2022 Discontinued (Other) Comment on above: Take 10 mg by mouth once daily. losartan potassium 50 mg oral tablet (20 sources) Angiotensin 2 Receptor Marcio Start: 05-28-2022 take 1 tablet by mouth once daily losartan (COZAAR) 50 mg tablet Take 50 mg by mouth once daily. 0 05/28/2022 Active Start: 03-03-2022 take 1 tablet by stanislaw th once daily Losartan Potassium 50 MG Oral Tablet TAKE 1 TABLET DAILY. Quantity: 90 Refills: 3 Ordered: 03-Mar-2022 Fermin Wall MD Start : 03-Mar-2022 Active take 1 tablet by stanislaw th in the morning losartan (COZAAR) 25 mg tablet Take 1 tablet (25 mg total) by mouth in the morning. Active End: 09-16-2023 take 0.5 tablet by mouth once daily losartan (COZAAR) 50 mg tablet Take 0.5 tablets (25 mg total) by mouth daily. 09/16/2023 Discontinued Comment on above: Take 50 mg by mouth once daily. metFORMIN hydrochloride 500 mg oral tablet (1 source) Biguanide take 1 tablet by mouth twice daily metFORMIN (GLUCOPHAGE) 500 mg tablet Take 500 mg by mouth twice daily. 0 Active Comment on above: Take 500 mg by mouth twice daily. 24 hr nicotine 0.875 mg/hr transdermal system (1 source) Cholinergic Nicotinic Agonist Start: 023 apply 1 dose transdermal route once daily nicotine (NICODERM) 21 mg/24 hr apply 1 patch to CLEAN, DRY, AND INTACT SKIN once daily REMOVE ev... (REFER TO PRESCRIPTION NOTES). 0 06/02/2022 Active Comment on above: apply 1 patch to ALBERTO AN, DRY, AND INTACT SKIN once daily REMOVE ev... (REFER TO PRESCRIPTION NOTES). 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 30 tablet 2 06/20/2024 08/31/2024 Discontinued Start: 08-10-2023 End: 11-02-2023 take 3 tablets by mouth once for nausea and vomiting, then take 1 tablet by mouth twice daily for nausea and vomiting ondansetron (Zofran) 8 mg tablet STARTING ON DAY 3, take 1 tablet by mouth twice a day if needed for SEVERE nausea and vomiting 08/10/2023 11/02/2023 Discontinued (Therapy completed) PACLitaxel 100 mg injection (10 sources) Microtubule Inhibitor Start: 04-24-2024 End: 04-24-2024 258 mg (100 mg/m2 2.58 m2 Treatment Plan BSA from Recorded weight), intravenous, at 103 mL/hr, Administer over 30 Minutes, Once, On Tue04/24/24 at 1345, For 1 dose, Look-alike/sound-alike medication - verify indication for use. Start: 04-10-2024 End: 04-10-2024 258 mg (100 mg/m2 2.58 m2 Tr eatment Plan BSA from Recorded weight), intravenous, at 103 mL/hr, Administer over 30 Minutes, Once, On Tue04/10/24 at 1245, For 1 dose, Look-alike/sound-alike medication - verify indication for use. Start: 03-27-2024 End: 03-27-2024 258 mg (100 mg/m2 2.58 m2 Tr eatment Plan BSA from Recorded weight), intravenous, at 103 mL/hr, Administer over 30 Minutes, Once, On Tue03/27/24 at 1300, For 1 dose, Look-alike/sound-alike medication - verify indication for use. Start: 01-10-2024 End: 01-10-2024 258 mg (100 mg/m2 2.58 m2 Tr eatment Plan BSA from Recorded weight), intravenous, at 103 mL/hr, Administer over 30 Minutes, Once, On e 01/10/24 at 1330, For 1 dose, Look-alike/sound-alike medication - verify indication for use. Start: 12-27-2023 End: 12-27-2023 258 mg (100 mg/m2 2.58 m2 Tr eatment Plan BSA from Recorded weight), intravenous, at 103 mL/hr, Administer over 30 Minutes, Once, On e 12/27/23 at 1330, For 1 dose, Look-alike/sound-alike medication - verify indication for use. Start: 12-06-2023 End: 12-06-2023 258 mg (100 mg/m2 2.58 m2 T reatment Plan BSA from Recorded weight), intravenous, at 103 mL/hr, Administer over 30 Minutes, Once, On e 12/06/23 at 1315, For 1 dose, Look-alike/sound-alike medication - verify indication for use. Start: 11-22-2023 End: 11-22-2023 258 mg (100 mg/m2 2.58 m2 Tr eatment Plan BSA from Recorded weight), intravenous, at 103 mL/hr, Administer over 30 Minutes, Once, On Tue11/22/23 at 1315, For 1 dose, Look-alike/sound-alike medication - verify indication for use. Start: 10-26-2023 End: 10-26-2023 258 mg (100 mg/m2 2.58 m2 Tr eatment Plan BSA from Recorded weight), intravenous, at 103 mL/hr, Administer over 30 Minutes, Once, On Tue10/26/23 at 1300, For 1 dose, Look-alike/sound-alike medication - verify indication for use. Start: 10-18-2023 End: 10-18-2023 258 mg (100 mg/m2 2.58 m2 Tr eatment Plan BSA from Recorded weight), intravenous, at 103 mL/hr, Administer over 30 Minutes, Once, On Tue10/18/23 at 1315, For 1 dose, Look-alike/sound-alike medication - verify indication for use. Start: 10-11-2023 End: 10-11-2023 258 mg (100 mg/m2 2.58 m2 Tr eatment Plan BSA from Recorded weight), intravenous, at 103 mL/hr, Administer over 30 Minutes, Once, On Tue10/11/23 at 1330, For 1 dose, Look-alike/sound-alike medication - verify indication for use. PACLitaxeL (TAXOL) 211.2 mg in sodium chloride 0.9 % (non-pvc) 250 mL chemo IVPB (4 sources) Start: 09-06-2023 End: 09-06-2023 211.2 mg (80 mg/m2 2.64 m2 T reatment Plan BSA from Recorded weight), intravenous, at 285 mL/hr, Administer over 1 Hours, Once, On Tue09/06/23 at 1345, For 1 dose, Taxol titration for all patients for FIRST TWO DOSES: 10 mL/hr x 5 minutes, then 25 mL/hr x 5 minutes, then 50 mL/hr x 5 minutes, then 100 mL/hr x 5 minutes, then full rate until completion. IRRITANT with vesicant-like properties Administer using a 0.22 micron in-line filter. Look-alike/sound-alike medication - verify indication for use. Start: 08-30-2023 End: 08-30-2023 211.2 mg (80 mg/m2 2.64 m2 T reatment Plan BSA from Recorded weight), intravenous, at 285 mL/hr, Administer over 1 Hours, Once, On Tue08/30/23 at 1330, For 1 dose, Taxol titration for all patients for FIRST TWO DOSES: 10 mL/hr x 5 minutes, then 25 mL/hr x 5 minutes, then 50 mL/hr x 5 minutes, then 100 mL/hr x 5 minutes, then full rate until completion. IRRITANT with vesicant-like properties Administer using a 0.22 micron in-line filter. Look-alike/sound-alike medication - verify indication for use. Start: 08-23-2023 End: 08-23-2023 211.2 mg (80 mg/m2 2.64 m2 T reatment Plan BSA from Recorded weight), intravenous, at 285 mL/hr, Administer over 1 Hours, Once, On Tue08/23/23 at 1030, For 1 dose, Taxol titration for all patients for FIRST TWO DOSES: 10 mL/hr x 5 minutes, then 25 mL/hr x 5 minutes, then 50 mL/hr x 5 minutes, then 100 mL/hr x 5 minutes, then full rate until completion. IRRITANT with vesicant-like properties Administer using a 0.22 micron in-line filter. Look-alike/sound-alike medication - verify indication for use. Start: 08-16-2023 End: 08-16-2023 211.2 mg (80 mg/m2 2.64 m2 T reatment Plan BSA from Recorded weight), intravenous, at 285 mL/hr, Administer over 1 Hours, Once, On Tue08/16/23 at 1445, For 1 dose, Taxol titration for all patients for FIRST TWO DOSES: 10 mL/hr x 5 minutes, then 25 mL/hr x 5 minutes, then 50 mL/hr x 5 minutes, then 100 mL/hr x 5 minutes, then full rate until completion. IRRITANT with vesicant-like properties Administer using a 0.22 micron in-line filter. Look-alike/sound-alike medication - verify indication for use. 5 ml palonosetron 0.05 mg/ml injection (3 sources) Serotonin-3 Receptor Antagonist Start: 01-10-2024 End: 01-10-2024 0.25 mg, intravenous, Once, On Tue01/10/24 at 1300, For 1 dose Start: 12-27-2023 End: 12-27-2023 0.25 mg, intravenous, Once, On Tue12/27/23 at 1300, For 1 dose Start: 12-06-2023 End: 12-06-2023 0.25 mg, intravenous, Once, On Tue12/06/23 at 1245, For 1 dose 4 ml pembrolizumab 25 mg/ml injection (3 sources) Programmed Receptor-1 Blocking Antibody End: 11-02-2023 pembrolizumab (Keytruda) 25 mg/mL chemo injection Infuse 8 mL (200 mg) into a venous catheter. Every 3 weeks 11/02/2023 Discontinued (Therapy completed) potassium chloride 10 meq extended release oral tablet (5 sources) Start: 08-29-2020 End: 12-01-2022 take 1 tablet by mouth once daily potassium chloride CR 10 mEq ER tablet Take 1 tablet (10 mEq) by mouth once daily. 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 60 tablet 2 08/10/2023 09/16/2023 Discontinued 1000 ml sodium chloride 9 mg/ml injection (20 sources) Start: 08-21-2024 End: 08-21-2024 take 25 mL intravenously every hour as needed 25 mL/hr, intravenous, Continuous PRN, When mainline IV needed (oncology protocol)., Starting on Tue08/21/24 at 1157, Match IVF to base solution of product being administered to ensure compatibility. Start: 08-20-2024 End: 08-21-2024 20 mL, intravenous, As neede d, port line care, Starting on Tue08/21/24 at 1113, Flush with NS prior to Heplock. Start: 08-07-2024 End: 08-07-2024 take 25 mL intravenously every hour as needed 25 mL/hr, intravenous, Continuous PRN, When mainline IV needed (oncology protocol)., Starting on Tue08/07/24 at 1314, Match IVF to base solution of product being administered to ensure compatibility. Start: 08-06-2024 End: 08-07-2024 20 mL, intravenous, As neede d, port line care, Starting on Tue08/07/24 at 1307, Flush with NS prior to Heplock. Start: 07-24-2024 End: 07-24-2024 take 25 mL intravenously every hour as needed 25 mL/hr, intravenous, Continuous PRN, When mainline IV needed (oncology protocol)., Starting on Tue07/24/24 at 1139, Match IVF to base solution of product being administered to ensure compatibility. Start: 07-23-2024 End: 07-24-2024 20 mL, intravenous, As neede d, port line care, Starting on Tue07/24/24 at 1118, Flush with NS prior to Heplock. Start: 07-10-2024 End: 07-10-2024 take 25 mL intravenously every hour as needed 25 mL/hr, intravenous, Continuous PRN, When mainline IV needed (oncology protocol)., Starting on Tue07/10/24 at 1348, Match IVF to base solution of product being administered to ensure compatibility. Start: 07-09-2024 End: 07-10-2024 20 mL, intravenous, As neede d, port line care, Starting on Tue07/10/24 at 1336, Flush with NS prior to Heplock. Start: 06-26-2024 End: 06-26-2024 take 25 mL intravenously every hour as needed 25 mL/hr, intravenous, Continuous PRN, When mainline IV needed (oncology protocol)., Starting on Tue06/26/24 at 1149, Match IVF to base solution of product being administered to ensure compatibility. Start: 06-25-2024 End: 06-26-2024 20 mL, intravenous, As neede d, port line care, Starting on Tue06/26/24 at 1132, Flush with NS prior to Heplock. Start: 04-24-2024 End: 04-24-2024 take 25 mL intravenously every hour as needed 25 mL/hr, intravenous, Continuous PRN, When mainline IV needed (oncology protocol)., Starting on Tue04/24/24 at 1305, Match IVF to base solution of product being administered to ensure compatibility. Start: 04-23-2024 End: 04-24-2024 20 mL, intravenous, As neede d, port line care, Starting on Tue04/24/24 at 1323, Flush with NS prior to Heplock. Start: 04-10-2024 take 25 mL intraveno usly every hour as needed 25 mL/hr, intravenous, Continuous PRN, When mainline IV needed (oncology protocol)., Starting on Tue04/10/24 at 1208, Match IVF to base solution of product being administered to ensure compatibility. Start: 04-09-2024 End: 04-09-2024 20 mL, intravenous, As neede d, port line care, Starting on Tue04/10/24 at 1207, Flush with NS prior to Heplock. Start: 03-27-2024 take 25 mL intraveno usly every hour as needed 25 mL/hr, intravenous, Continuous PRN, When mainline IV needed (oncology protocol)., Starting on Tue03/27/24 at 1222, Match IVF to base solution of product being administered to ensure compatibility. Start: 03-26-2024 20 mL, intrave nous, As needed, port line care, Starting on Tue03/26/24 at 1142, Flush with NS prior to Heplock. Start: 02-27-2024 20 mL, intrave nous, As needed, port line care, Starting on Tue02/27/24 at 1236, Flush with NS prior to Heplock. Start: 02-20-2024 End: 02-20-2024 20 mL, intravenous, As neede d, port line care, Starting on Tue02/20/24 at 1117, Flush with NS prior to Heplock. Start: 01-10-2024 End: 01-10-2024 take 25 mL intravenously every hour as needed 25 mL/hr, intravenous, Continuous PRN, When mainline IV needed (oncology protocol)., Starting on Tue01/10/24 at 1245, Match IVF to base solution of product being administered to ensure compatibility. Start: 01-09-2024 End: 01-10-2024 20 mL, intravenous, As neede d, port line care, Starting on Tue01/10/24 at 1246, Flush with NS prior to Heplock. Start: 12-27-2023 End: 12-27-2023 take 25 mL intravenously every hour as needed 25 mL/hr, intravenous, Continuous PRN, When mainline IV needed (oncology protocol)., Starting on Tue12/27/23 at 1246, Match IVF to base solution of product being administered to ensure compatibility. Start: 12-26-2023 End: 12-27-2023 20 mL, intravenous, As neede d, port line care, Starting on Tue12/27/23 at 1246, Flush with NS prior to Heplock. Start: 12-19-2023 End: 12-19-2023 20 mL, intravenous, As neede d, port line care, Starting on Tue12/19/23 at 1208, Flush with NS prior to Heplock. Start: 12-06-2023 End: 12-06-2023 take 25 mL intravenously every hour as needed 25 mL/hr, intravenous, Continuous PRN, When mainline IV needed (oncology protocol)., Starting on Tue12/06/23 at 1232, Match IVF to base solution of product being administered to ensure compatibility. Start: 12-05-2023 End: 12-06-2023 20 mL, intravenous, As neede d, port line care, Starting on Tue12/06/23 at 1240, Flush with NS prior to Heplock. Start: 11-22-2023 End: 11-22-2023 take 25 mL intravenously every hour as needed 25 mL/hr, intravenous, Continuous PRN, When mainline IV needed (oncology protocol)., Starting on Tue11/22/23 at 1231, Match IVF to base solution of product being administered to ensure compatibility. Start: 11-21-2023 End: 11-22-2023 20 mL, intravenous, As neede d, port line care, Starting on Tue11/22/23 at 1254, Flush with NS prior to Heplock. Start: 10-31-2023 End: 10-31-2023 20 mL, intravenous, As neede d, port line care, Starting on Tue10/31/23 at 1216, Flush with NS prior to Heplock. Start: 10-26-2023 End: 10-26-2023 take 25 mL intravenously every hour as needed 25 mL/hr, intravenous, Continuous PRN, When mainline IV needed (oncology protocol)., Starting on Tue10/26/23 at 1220, Match IVF to base solution of product being administered to ensure compatibility. Start: 10-25-2023 End: 10-26-2023 20 mL, intravenous, As neede d, port line care, Starting on Tue10/26/23 at 1220, Flush with NS prior to Heplock. Start: 10-18-2023 End: 10-18-2023 take 25 mL intravenously every hour as needed 25 mL/hr, intravenous, Continuous PRN, When mainline IV needed (oncology protocol)., Starting on Tue10/18/23 at 1238, Match IVF to base solution of product being administered to ensure compatibility. Start: 10-17-2023 End: 10-18-2023 20 mL, intravenous, As neede d, port line care, Starting on Tue10/18/23 at 1239, Flush with NS prior to Heplock. Start: 10-11-2023 End: 10-11-2023 take 25 mL intravenously every hour as needed 25 mL/hr, intravenous, Continuous PRN, When mainline IV needed (oncology protocol)., Starting on Tue10/11/23 at 1251, Match IVF to base solution of product being administered to ensure compatibility. Start: 10-10-2023 End: 10-11-2023 20 mL, intravenous, As neede d, port line care, Starting on Tue10/11/23 at 1246, Flush with NS prior to Heplock. Start: 10-03-2023 End: 10-03-2023 20 mL, intravenous, As neede d, port line care, Starting on Tue10/03/23 at 1240, Flush with NS prior to Heplock. Start: 09-12-2023 End: 09-12-2023 20 mL, intravenous, As neede d, port line care, Starting on Tue09/12/23 at 1214, Flush with NS prior to Heplock. Start: 09-06-2023 End: 09-06-2023 take 25 mL intravenously every hour as needed 25 mL/hr, intravenous, Continuous PRN, When mainline IV needed (oncology protocol)., Starting on Tue09/06/23 at 1237, Match IVF to base solution of product being administered to ensure compatibility. Start: 09-05-2023 End: 09-06-2023 20 mL, intravenous, As neede d, port line care, Starting on Tue09/06/23 at 1237, Flush with NS prior to Heplock. Start: 08-30-2023 take 25 mL intraveno usly every hour as needed 25 mL/hr, intravenous, Continuous PRN, When mainline IV needed (oncology protocol)., Starting on Tue08/30/23 at 1252, Match IVF to base solution of product being administered to ensure compatibility. Start: 08-29-2023 End: 08-29-2023 20 mL, intravenous, As neede d, port line care, Starting on Tue08/30/23 at 1252, Flush with NS prior to Heplock. Start: 08-29-2023 End: 08-29-2023 1,000 mL, intravenous, at 50 0 mL/hr, Administer over 2 Hours, Once, On Tue08/29/23 at 1230, For 1 dose Start: 08-23-2023 End: 08-23-2023 take 25 mL intravenously every hour as needed 25 mL/hr, intravenous, Continuous PRN, When mainline IV needed (oncology protocol)., Starting on Tue08/23/23 at 0952, Match IVF to base solution of product being administered to ensure compatibility. Start: 08-22-2023 End: 08-22-2023 1,000 mL, intravenous, at 50 0 mL/hr, Administer over 2 Hours, Once, On Tue08/22/23 at 1200, For 1 dose Start: 08-22-2023 End: 08-23-2023 20 mL, intravenous, As neede d, port line care, Starting on Tue08/23/23 at 0953, Flush with NS prior to Heplock. Start: 08-16-2023 End: 08-16-2023 take 25 mL intravenously every hour as needed 25 mL/hr, intravenous, Continuous PRN, When mainline IV needed (oncology protocol)., Starting on Tue08/16/23 at 1341, Match IVF to base solution of product being administered to ensure compatibility. Start: 08-15-2023 End: 08-15-2023 1,000 mL, intravenous, at 50 0 mL/hr, Administer over 2 Hours, Once, On Tue08/15/23 at 1315, For 1 dose Start: 08-15-2023 End: 08-16-2023 20 mL, intravenous, As neede d, port line care, Starting on Tue08/16/23 at 1249, Flush with NS prior to Heplock. Start: 08-05-2023 End: 08-05-2023 20 mL, intravenous, As neede d, port line care, Starting on Tue08/05/23 at 1500, Flush with NS prior to Heplock. Problems Active Problems Problem Classification Problem Date Documented Date Episodic/Chronic Anxiety disorders (20 sources) Claustrophobia; Translations: [Claustrophobia] Onset: 05-19-2021 Resolved: 05-19-2021 Chronic Cancer of bronchus; lung (20 sources) Malignant tumor of lung; Translations: [Malignant neoplasm of unspecified main bronchus] Onset: 07-09-2022 12-01-2022 Chronic Cardiac dysrhythmias (20 sources) Paroxysmal atrial fibrillation; Translations: [Atrial fibrillation] Onset: 10-27-2022 Resolved: 11-02-2023 12-01-2022 Chronic Conduction disorders (6 sources) Encounter for adjustment and management of other part of cardiac pacemaker; Translations: [Presence of cardiac pacemaker] Onset: 04-11-2024 Chronic Congestive heart failure; nonhypertensive (20 sources) Congestive heart failure; Translations: [Congestive heart failure, unspecified] Onset: 10-27-2022 Resolved: 11-02-2023 12-01-2022 Chronic Essential hypertension (20 sources) Hypertensive disorder; Translations: [Unspecified essential hypertension] Onset: 10-27-2022 12-01-2022 Chronic Hypertension with complications and secondary hypertension (2 sources) Hypertensive heart disease with heart failure; Translations: [Hypertensive heart disease with heart failure] Onset: 06-06-2024 Chronic Nonspecific chest pain (3 sources) Chest pain, unspecified; Translations: [CHEST PAIN UNSPECIFIED] Onset: 05-29-2022 Episodic Other and unspecified benign neoplasm (1 [...] Onset: 06-01-2022 Episodic Other lower respiratory disease (10 sources) Dyspnea; Translations: [Shortness of breath] Onset: 09-05-2023 11-02-2023 Episodic Other lower respiratory disease (2 sources) Shortness of breath; Translations: [Shortness of breath] Onset: 09-05-2023 Episodic Other lower respiratory disease (1 source) Hypoxemia; Translations: [Hypoxemia] Onset: 08-29-2024 Episodic Other nutritional; endocrine; and metabolic disorders (4 sources) Body mass index 40+ - severely obese; Translations: [Morbid obesity] Chronic Other nutritional; endocrine; and metabolic disorders (1 source) Body mass index (BMI) 40.0-44.9, adult Onset: 05-19-2021 Resolved: 05-19-2021 Chronic Other nutritional; endocrine; and metabolic disorders (5 sources) Body mass index 30+ - obesity; Translations: [Body mass index (BMI) 39.0-39.9, adult] Onset: 05-17-2023 05-17-2023 Chronic Other nutritional; endocrine; and metabolic disorders (2 sources) Body mass index (BMI) 37.0-37.9, adult; Translations: [Body mass index (BMI) 37.0-37.9, adult] Onset: 11-02-2023 Chronic Other nutritional; endocrine; and metabolic disorders (2 sources) Body mass index (BMI) 39.0-39.9, adult; Translations: [Body mass index (BMI) 39.0-39.9, adult] Onset: 05-17-2023 Chronic Other nutritional; endocrine; and metabolic disorders (2 sources) Hypomagnesemia; Translations: [Hypomagnesemia] Onset: 11-07-2023 Chronic Other nutritional; endocrine; and metabolic disorders (2 sources) Obesity, unspecified; Translations: [Obesity, unspecified] Onset: 11-14-2023 Chronic Other skin disorders (1 source) Localized swelling, mass and lump, trunk; Translations: [LOCALIZD SWELLING MASS AND LUMP TRUNK] Onset: 06-01-2022 Episodic Other skin disorders (1 source) Seborrheic keratosis; Translations: [Other seborrheic keratosis] Episodic Other skin disorders (1 source) Lentiginosis; Translations: [Other melanin hyperpigmentation] Episodic Residual codes; unclassified (2 sources) Hypoxia; Translations: [Idiopathic sleep related nonobstructive alveolar hypoventilation] Chronic Residual codes; unclassified (4 sources) Obstructive sleep apnea (adult) (pediatric); Translations: [Obstructive sleep apnea (adult) (pediatric)] Onset: 02-08-2017 Resolved: 05-19-2021 Chronic Residual codes; unclassified (1 source) Idiopathic sleep related nonobstructive alveolar hypoventilation Onset: 05-19-2021 Resolved: 05-19-2021 Chronic Residual codes; unclassified (1 source) Family history of malignant neoplasm of skin; Translations: [Family history of malignant neoplasm of other organs or systems] Episodic Residual codes; unclassified (2 sources) Other specified postprocedural states; Translations: [Other specified postprocedural states] Onset: 06-06-2024 Episodic Secondary malignancies (5 sources) Secondary and unspecified malignant neoplasm of lymph nodes of head, face and neck; Translations: [Secondary and unspecified malignant neoplasm of lymph nodes of head, face and neck] Onset: 06-16-2023 Chronic Secondary malignancies (9 sources) Metastatic non-small cell lung cancer 03-28-2024 Chronic Substance-related disorders (8 sources) Smoker; Translations: [Tobacco use disorder] Onset: 09-14-2019 09-14-2019 Chronic Comment on above: 1 PPD; Unclassified (1 source) Establish Care Onset: 06-14-2024 Unclassified (1 source) New Patient Onset: 09-05-2023 Unclassified (2 sources) Other persistent atrial fibrillation; Translations: [Other persistent atrial fibrillation] Onset: 04-18-2024 Unclassified (2 sources) Permanent atrial fibrillation; Translations: [Permanent atrial fibrillation] Onset: 11-14-2023 Unclassified (2 sources) Chronic atrial fibrillation, unspecified; Translations: [Chronic atrial fibrillation, unspecified] Onset: 11-06-2023 Unclassified (1 source) Coughing Up Blood, & Breathing issues Onset: 08-29-2024 Unclassified (1 source) Labs Only Onset: 12-05-2023 Unclassified (1 source) Port/VAD Care Onset: 09-05-2023 Past or Other Problems Problem Classification Problem Date Documented Date Episodic/Chronic Diabetes mellitus without complication (20 sources) Hyperglycemia; Translations: [Hyperglycemia, unspecified] Onset: 09-14-2019 09-14-2019 [...] INT EDWARDO] Onset: 10-14-2021 Resolved: 10-14-2021 Episodic Headache; including migraine (20 sources) Aching headache; Translations: [Aching headache] Onset: 08-05-2023 08-05-2023 Episodic Immunizations and screening for infectious disease (1 source) Encounter for immunization; Translations: [ENCOUNTER FOR IMMUNIZATION] Onset: 10-14-2021 Episodic Mood disorders (20 sources) Mood disorders Onset: 03-03-2022 Resolved: 06-14-2024 06-21-2022 Other aftercare (3 sources) Other intermediate (current) drug therapy; Translations: [OTH DETENTION CURRENT DRUG THERAPY] Onset: 06-01-2022 Episodic Other aftercare (6 sources) Taking high risk medication; Translations: [Other intermediate accountant (current) drug therapy] Onset: 05-17-2023 05-17-2023 Episodic Other circulatory disease (1 source) H/O: heart failure; Translations: [Personal history of other diseases of circulatory system] Resolved: 08-03-2022 Episodic Other connective tissue disease (1 source) Pain in left hand Onset: 10-14-2021 Resolved: 10-14-2021 Episodic Other connective tissue disease (8 sources) Cramp; Translations: [Cramp of limb] Onset: 10-27-2022 10-27-2022 Episodic Other connective tissue disease (2 sources) Pain in right leg; Translations: [Pain in right leg] Onset: 04-11-2024 Episodic Other diseases of veins and lymphatics (1 source) Venous insufficiency of leg; Translations: [Venous insufficiency (chronic) (peripheral)] Onset: 09-14-2019 09-14-2019 Episodic Other injuries and conditions due to external causes (3 sources) Unspecified injury of left wrist, hand and finger(s), initial encounter; Translations: [UNS INJ LT WRIST HAND FINGERS INIT] Onset: 10-12-2021 Episodic Other lower respiratory disease (1 source) Wheezing Onset: 09-05-2023 Episodic Other lower respiratory disease (1 source) Cough Onset: 09-05-2023 Episodic Other nutritional; endocrine; and metabolic disorders (8 sources) Obesity; Translations: [Obesity, unspecified] Onset: 10-27-2022 Resolved: 05-17-2023 10-27-2022 Chronic Pneumonia (except that caused by tuberculosis or sexually transmitted disease) (3 sources) Pneumonia, unspecified organism; Translations: [PNEUMONIA UNSPECIFIED ORGANISM] Onset: 06-01-2022 Episodic Residual codes; unclassified (20 sources) Sleep apnea; Translations: [Unspecified sleep apnea] Onset: 10-27-2022 Resolved: 06-14-2024 10-27-2022 Chronic Residual codes; unclassified (20 sources) Obstructive sleep apnea syndrome; Translations: [Obstructive sleep apnea (adult) (pediatric)] Onset: 02-08-2017 Resolved: 06-14-2024 11-02-2023 Chronic Residual codes; unclassified (3 sources) Edema of right lower limb; Translations: [Localized edema] 09-13-2023 Episodic Residual codes; unclassified (1 source) Localized edema; Translations: [Localized edema] Onset: 09-13-2023 Episodic Screening and history of mental health and substance abuse codes (9 sources) Ex-smoker; Translations: [Personal history of tobacco use] Onset: 05-17-2023 05-17-2023 Episodic Comment on above: QUIT 04/2022; Superficial injury; contusion (2 sources) Contusion of left thumb with damage to nail, initial encounter; Translations: [CONTUS LT THUMB W/DAMAGE NAIL INIT] Onset: 10-14-2021 Resolved: 10-14-2021 Episodic Unclassified (6 sources) Onset: 12-01-2022 12-01-2022 Results Test Name Value Interpretation Reference Range Facility CBC WITH AUTO DIFFERENTIALon 08-30-2024 BASOPHILS ABSOLUTE COUNT (10*3/UL) BY AUTOMATED COUNT 0.0 10*3/uL Normal 0.0-0.2 [facility] Comment on above: Performed By: #### C BCA ####[address] [address] VIR BASOPHILS RELATIVE PERCENT BY AUTOMATED COUNT 0.2 % Normal [facility] Comment on above: Performed By: #### C BCA ####[facility] ([address] [address] VIR CELLAVISION DIFFERENTIAL TYPE AUTOMATED DIFFERENTIAL Normal [facility] Comment on above: Performed By: #### C BCA ####[address] [address] VIR Eosinophils (Bld) [#/Vol] 0.0 10*3/uL Normal 0.0-0.4 [facility] Comment on above: Performed By: #### C BCA ####[facility] ([address] [place] [address] VIR EOSINOPHILS RELATIVE PERCENT BY AUTOMATED COUNT 0.2 % Normal [facility] Comment on above: Performed By: #### C BCA ####[facility] ([address] [place] [address] VIR Erythrocyte distribution width (RBC) [Ratio] 18.8 % High 11.5-15 [facility] Comment on above: Performed By: #### C BCA ####[facility] ([address] [place] [address] VIR Hematocrit (Bld) [Volume fraction] 32.2 % Low 39-50 [facility] Comment on above: Performed By: #### C BCA ####[facility] ([address] [place] [address] VIR Hemoglobin (Bld) [Mass/Vol] 11.1 g/dL Low 13-17 [facility] Comment on above: Performed By: #### C BCA ####[facility] ([address] [place] [address] VIR LYMPHOCYTES ABSOLUTE COUNT (10*3/UL) BY AUTOMATED COUNT 0.2 10*3/uL Low 1.0-3.5 [facility] Comment on above: Performed By: #### C BCA ####[facility] ([address] [place] [address] VIR LYMPHOCYTES RELATIVE PERCENT BY AUTOMATED COUNT 4.9 % Normal [facility] Comment on above: Performed By: #### C BCA ####[facility] ([address] [place] [address] VIR MCH (RBC) [Entitic mass] 28.8 pg Normal 27-34 [facility] Comment on above: Performed By: #### C BCA ####[facility] ([address] [place] [address] VIR MCHC (RBC) [Mass/Vol] 34.4 g/dL Normal 32-36 [facility] Comment on above: Performed By: #### C BCA ####[facility] ([address] [address] VIR MCV (RBC) [Entitic vol] 84 fL Normal 80-100 [facility] Comment on above: Performed By: #### C BCA ####[facility] ([address] [address] VIR MONOCYTES ABSOLUTE COUNT (10*3/UL) BY AUTOMATED COUNT 0.3 10*3/uL Normal 0.0-0.9 [facility] Comment on above: Performed By: #### C BCA ####[facility] ([address] [address] VIR MONOCYTES RELATIVE PERCENT BY AUTOMATED COUNT 5.3 % Normal [facility] Comment on above: Performed By: #### C BCA ####[facility] ([address] [address] VIR NEUTROPHILS ABSOLUTE COUNT BY AUTOMATED COUNT 4.4 10*3/uL Normal 1.5-6.6 [facility] Comment on above: Performed By: #### C BCA ####[facility] ([address] [address] VIR NEUTROPHILS RELATIVE PERCENT BY AUTOMATED COUNT 89.4 % Normal [facility] Comment on above: Performed By: #### C BCA ####[facility] ([address] [address] VIR Platelet mean volume (Bld) [Entitic vol] 7.5 fL Normal 7-12 [facility] Comment on above: Performed By: #### C BCA ####[facility] ([address] [address] VIR Platelets (Bld) [#/Vol] 137 10*3/uL Low 150-450 [facility] Comment on above: Performed By: #### C BCA ####[facility] ([address] [place] [address] VIR RBC COUNT 3.85 X10E12/L Low 4.1-5.7 [facility] Comment on above: Performed By: #### C BCA ####[facility] ([address] [place] [address] VIR WBC (Bld) [#/Vol] 5.0 10*3/uL Normal 4-11 [facility] Comment on above: Performed By: #### C BCA ####[facility] ([address] [place] [address] VIR COMPREHENSIVE METABOLIC PANE Adam 08-30-2024 Albumin [Mass/Vol] 3.3 g/dL Normal 3.2-5.3 [facility] Comment on above: Performed By: #### C MP ####[facility] ([address] [place] [address] VIR ALP [Catalytic activity/Vol] 82 U/L Normal 39-130 [facility] Comment on above: Performed By: #### C MP ####[facility] ([address] [place] [address] VIR ALT [Catalytic activity/Vol] 42 U/L High <=40 [facility] Comment on above: Performed By: #### C MP ####[facility] ([address] [place] [address] VIR Anion gap [Moles/Vol] 10 mmol/L Normal 5-15 [facility] Comment on above: Performed By: #### C MP ####[facility] ([address] [place] [address] VIR AST [Catalytic activity/Vol] 33 U/L Normal <=41 [facility] Comment on above: Performed By: #### C MP ####[facility] ([address] [place] [address] VIR Bilirubin [Mass/Vol] 0.9 mg/dL Normal 0.3-1.2 [facility] Comment on above: Performed By: #### C MP ####[facility] ([address] [place] [address] VIR Calcium [Mass/Vol] 9.4 mg/dL Normal 8.5-10.5 [facility] Comment on above: Performed By: #### C MP ####[facility] ([address] [place] [address] VIR Chloride [Moles/Vol] 103 mmol/L Normal 98-109 [facility] Comment on above: Performed By: #### C MP ####[facility] ([address] [place] [address] VIR CO2 [Moles/Vol] 23 mmol/L Normal 22-32 [facility] Comment on above: Performed By: #### C MP ####[facility] ([address] [place] [address] VIR Creatinine [Mass/Vol] 0.70 mg/dL Normal 0.70-1.20 [facility] Comment on above: Result Comment: METH OD TRACEABLE TO IDMS STANDARD Performed By: #### C MP ####[facility] ([address] [place] [address] VIR EGFR (CKD-EPI) NON-RACE DEPENDENT >^90 Normal >=60 [facility] Comment on above: Result Comment: eGFR not reported due to non-numeric value for Creatinine.Reported eGFR is based on theCKD-EPI 2020 equation that doesnot use a race coefficient. Performed By: #### C MP ####[facility] ([address] [place] [address] VIR Glucose [Mass/Vol] 127 mg/dL High 65-99 [facility] Comment on above: Performed By: #### C MP ####[facility] ([address] [place] [address] VIR Potassium [Moles/Vol] 3.7 mmol/L Normal 3.5-5.0 [facility] Comment on above: Performed By: #### C MP ####[facility] ([address] [place] [address] VIR Protein [Mass/Vol] 7.1 g/dL Normal 6.0-8.0 [facility] Comment on above: Performed By: #### C MP ####[facility] ([address] [place] [address] VIR Sodium [Moles/Vol] 136 mmol/L Normal 134-146 [facility] Comment on above: Performed By: #### C MP ####[facility] ([address] [place] [address] VIR Urea nitrogen [Mass/Vol] 7 mg/dL Normal 5-23 [facility] Comment on above: Performed By: #### C MP ####[facility] ([address] [place] [address] VIR MAGNESIUMon 08-30-2024 Magnesium [Mass/Vol] 1.9 mg/dL Normal 1.8-2.6 [facility] Comment on above: Performed By: #### M G ####[facility] ([place] [address] [place] [address] VIR APTTon 08-29-2024 aPTT Coag (Bld) [Time] 32 s Normal 26-37 [facility] Comment on above: Performed By: #### P TT ####[facility] ([place] [address] [place] [address] VIR CBC WITH AUTO DIFFERENTIALon 08-29-2024 BASOPHILS ABSOLUTE COUNT (10*3/UL) BY AUTOMATED COUNT 0.0 10*3/uL Normal 0.0-0.2 [facility] Comment on above: Performed By: #### C BCA ####[facility] ([facility])[address] [place] [address] VIR BASOPHILS RELATIVE PERCENT BY AUTOMATED COUNT 0.4 % Normal [facility] Comment on above: Performed By: #### C BCA ####[facility] ([address] [address] VIR CELLAVISION DIFFERENTIAL TYPE AUTOMATED DIFFERENTIAL Normal [facility] Comment on above: Performed By: #### C BCA ####[facility] ([address] [address] VIR Eosinophils (Bld) [#/Vol] 0.0 10*3/uL Normal 0.0-0.4 [facility] Comment on above: Performed By: #### C BCA ####[facility] ([address] [address] VIR EOSINOPHILS RELATIVE PERCENT BY AUTOMATED COUNT 0.7 % Normal [facility] Comment on above: Performed By: #### C BCA ####[facility] ([address] [address] VIR Erythrocyte distribution width (RBC) [Ratio] 19.0 % High 11.5-15 [facility] Comment on above: Performed By: #### C BCA ####[facility] ([address] [address] VIR Hematocrit (Bld) [Volume fraction] 32.4 % Low 39-50 [facility] Comment on above: Performed By: #### C BCA ####[facility] ([address] [address] VIR Hemoglobin (Bld) [Mass/Vol] 11.1 g/dL Low 13-17 [facility] Comment on above: Performed By: #### C BCA ####[facility] ([address] [place] [address] VIR LYMPHOCYTES ABSOLUTE COUNT (10*3/UL) BY AUTOMATED COUNT 0.4 10*3/uL Low 1.0-3.5 [facility] Comment on above: Performed By: #### C BCA ####[facility] ([address] [address] VIR LYMPHOCYTES RELATIVE PERCENT BY AUTOMATED COUNT 8.2 % Normal [facility] Comment on above: Performed By: #### C BCA ####[facility] ([address] [address] VIR MCH (RBC) [Entitic mass] 28.7 pg Normal 27-34 [facility] Comment on above: Performed By: #### C BCA ####[facility] ([address] [place] [address] VIR MCHC (RBC) [Mass/Vol] 34.4 g/dL Normal 32-36 [facility] Comment on above: Performed By: #### C BCA ####[facility] ([address] [place] [address] VIR MCV (RBC) [Entitic vol] 84 fL Normal 80-100 [facility] Comment on above: Performed By: #### C BCA ####[facility] ([address] [place] [address] VIR MONOCYTES ABSOLUTE COUNT (10*3/UL) BY AUTOMATED COUNT 0.8 10*3/uL Normal 0.0-0.9 [facility] Comment on above: Performed By: #### C BCA ####[facility] ([address] [place] [address] VIR MONOCYTES RELATIVE PERCENT BY AUTOMATED COUNT 18.1 % Normal [facility] Comment on above: Performed By: #### C BCA ####[facility] ([address] [address] VIR NEUTROPHILS ABSOLUTE COUNT BY AUTOMATED COUNT 3.1 10*3/uL Normal 1.5-6.6 [facility] Comment on above: Performed By: #### C BCA ####[facility] ([address] [address] VIR NEUTROPHILS RELATIVE PERCENT BY AUTOMATED COUNT 72.6 % Normal [facility] Comment on above: Performed By: #### C BCA ####[facility] ([address] [address] VIR Platelet mean volume (Bld) [Entitic vol] 7.0 fL Normal 7-12 [facility] Comment on above: Performed By: #### C BCA ####[facility] ([address] [address] VIR Platelets (Bld) [#/Vol] 132 10*3/uL Low 150-450 [facility] Comment on above: Performed By: #### C BCA ####[facility] ([address] [address] VIR RBC COUNT 3.88 X10E12/L Low 4.1-5.7 [facility] Comment on above: Performed By: #### C BCA ####[facility] ([address] [address] VIR WBC (Bld) [#/Vol] 4.3 10*3/uL Normal 4-11 [facility] Comment on above: Performed By: #### C BCA ####[facility] ([address] [address] VIR COMPREHENSIVE METABOLIC PANE Aadm 08-29-2024 Albumin [Mass/Vol] 3.4 g/dL Normal 3.2-5.3 [facility] Comment on above: Performed By: #### C MP ####[facility] ([address] [place] [address] VIR ALP [Catalytic activity/Vol] 80 U/L Normal 39-130 [facility] Comment on above: Performed By: #### C MP ####[facility] ([address] [place] [address] VIR ALT [Catalytic activity/Vol] 46 U/L High <=40 [facility] Comment on above: Performed By: #### C MP ####[facility] ([address] [place] [address] VIR Anion gap [Moles/Vol] 9 mmol/L Normal 5-15 [facility] Comment on above: Performed By: #### C MP ####[facility] ([address] [place] [address] VIR AST [Catalytic activity/Vol] 37 U/L Normal <=41 [facility] Comment on above: Performed By: #### C MP ####[facility] ([address] [place] [address] VIR Bilirubin [Mass/Vol] 1.0 mg/dL Normal 0.3-1.2 [facility] Comment on above: Performed By: #### C MP ####[facility] ([address] [place] [address] VIR Calcium [Mass/Vol] 9.3 mg/dL Normal 8.5-10.5 [facility] Comment on above: Performed By: #### C MP ####[facility] ([address] [place] [address] VIR Chloride [Moles/Vol] 102 mmol/L Normal 98-109 [facility] Comment on above: Performed By: #### C MP ####[facility] ([facility])[address] [place] [address] VIR CO2 [Moles/Vol] 23 mmol/L Normal 22-32 [facility] Comment on above: Performed By: #### C MP ####[facility] ([facility])[address] [place], [place] [address] [address] VIR Creatinine [Mass/Vol] 0.88 mg/dL Normal 0.70-1.20 [facility] Comment on above: Result Comment: METH OD TRACEABLE TO IDMS STANDARD Performed By: #### C MP ####[facility] ([address] [place] [address] VIR EGFR (CKD-EPI) NON-RACE DEPENDENT >^90 Normal >=60 [facility] Comment on above: Result Comment: eGFR not reported due to non-numeric value for Creatinine.Reported eGFR is based on theCKD-EPI 2020 equation that doesnot use a race coefficient. Performed By: #### C MP ####[facility] ([address] [place] [address] VIR Glucose [Mass/Vol] 133 mg/dL High 65-99 [facility] Comment on above: Performed By: #### C MP ####[facility] ([address] [place] [address] VIR Potassium [Moles/Vol] 3.6 mmol/L Normal 3.5-5.0 [facility] Comment on above: Performed By: #### C MP ####[facility] ([address] [place] [address] VIR Protein [Mass/Vol] 7.0 g/dL Normal 6.0-8.0 [facility] Comment on above: Performed By: #### C MP ####[facility] ([address] [place] [address] VIR Sodium [Moles/Vol] 134 mmol/L Normal 134-146 [facility] Comment on above: Performed By: #### C MP ####[facility] ([address] [place] [address] VIR Urea nitrogen [Mass/Vol] 8 mg/dL Normal 5-23 [facility] Comment on above: Performed By: #### C MP ####[facility] ([address] [place] [address]A CHESTon 08-29-2024 CT CTA CHEST Normal [facility] D-DIMERon 08-29-2024 D DIMER 963 ug/mL High 1-255 [facility] Comment on above: Result Comment: Resu lts >255 ng/mL DDU: Results may be indicative of the presence of VTE. The use of the Wells score and further diagnostic tests should be considered. Elevated D-Dimer levels can be associated with DIC, neoplasm, , trauma and liver disease. Elevated levels of rheumatoid factor may lead to an overestimation of the D-Dimer level. Performed By: #### D DMR ####[facility] ([address] [address] VIR LACTATE W/ REFLEXon 08-30-19 25 LACTATE W/REFLEX 1.5 mmol/L Normal 0.4-2.0 [facility] Comment on above: Order Comment: Resul t did not trigger repeat Lactate,re-order if needed. Performed By: #### L ACTS ####[facility] ([address] [place] [address] VIR MAGNESIUMon 08-29-2024 Magnesium [Mass/Vol] 1.6 mg/dL Low 1.8-2.6 [facility] Comment on above: Performed By: #### M G ####[address] [place] [address] VIR PROCALCITONINon 08-29-2024 PROCALCITONIN 0.19 ng/mL High <0.05 [facility] Comment on above: Order Comment: <0.50 ng/mL - Low risk of severe sepsis and/or septic shock.<2.00 ng/mL - Recommend retesting within 6-24 hours.>2.00 ng/mL - High risk of sepsis and/or septic shock. Performed By: #### P XIAO ####[address] [address] VIR PROTIME AND INRon 08-29-2024 INR 1.8 High 0.9-1.2 [facility] Comment on above: Performed By: #### P INR ####[address] [address] VIR PT Coag (PPP) [Time] 20.9 s High 9.8-13.2 [facility] Comment on above: Performed By: #### P INR ####[address] [address] VIR TROP I, HIGH SENSITIVITY 1 H OURon 08-29-2024 TROPONIN I, HIGH SENSITIVITY <^2 Normal <21 [facility] Comment on above: Performed By: #### T NIHS1 ####[address] [address] VIR TROPONIN I, HIGH SENSITIVITY 0 HOURon 08-29-2024 TROPONIN I, HIGH SENSITIVITY <^2 Normal <21 [facility] Comment on above: Performed By: #### T NIHS0 ####[address] [address] VIR CBC WITH AUTO DIFFERENTIALon 08-20-2024 BASOPHILS ABSOLUTE COUNT (10*3/UL) BY AUTOMATED COUNT 0.0 10*3/uL Normal 0.0-0.2 [facility] Comment on above: Order Comment: See S pringboard - Labs Due report. Performed By: #### C BCA ####[facility] ([address] [address] VIR BASOPHILS RELATIVE PERCENT BY AUTOMATED COUNT 0.4 % Normal [facility] Comment on above: Order Comment: See S pringboard - Labs Due report. Performed By: #### C BCA ####[facility] ([address] [address] VIR CELLAVISION DIFFERENTIAL TYPE AUTOMATED DIFFERENTIAL Normal [facility] Comment on above: Order Comment: See S pringboard - Labs Due report. Performed By: #### C BCA ####[facility] ([address] [address] VIR Eosinophils (Bld) [#/Vol] 0.0 10*3/uL Normal 0.0-0.4 [facility] Comment on above: Order Comment: See S pringboard - Labs Due report. Performed By: #### C BCA ####[facility] ([address] [address] VIR EOSINOPHILS RELATIVE PERCENT BY AUTOMATED COUNT 0.4 % Normal [facility] Comment on above: Order Comment: See S pringboard - Labs Due report. Performed By: #### C BCA ####[facility] ([address] [address] VIR Erythrocyte distribution width (RBC) [Ratio] 18.7 % High 11.5-15 [facility] Comment on above: Order Comment: See S pringboard - Labs Due report. Performed By: #### C BCA ####[facility] ([address] [address] VIR Hematocrit (Bld) [Volume fraction] 35.9 % Low 39-50 [facility] Comment on above: Order Comment: See S pringboard - Labs Due report. Performed By: #### C BCA ####[facility] ([address] [address] VIR Hemoglobin (Bld) [Mass/Vol] 12.3 g/dL Low 13-17 [facility] Comment on above: Order Comment: See S pringboard - Labs Due report. Performed By: #### C BCA ####[facility] ([address] [place] [address] VIR LYMPHOCYTES ABSOLUTE COUNT (10*3/UL) BY AUTOMATED COUNT 0.5 10*3/uL Low 1.0-3.5 [facility] Comment on above: Order Comment: See S pringboard - Labs Due report. Performed By: #### C BCA ####[facility] ([address] [address] VIR LYMPHOCYTES RELATIVE PERCENT BY AUTOMATED COUNT 6.5 % Normal [facility] Comment on above: Order Comment: See S pringboard - Labs Due report. Performed By: #### C BCA ####[facility] ([address] [address] VIR MCH (RBC) [Entitic mass] 29.4 pg Normal 27-34 [facility] Comment on above: Order Comment: See S pringboard - Labs Due report. Performed By: #### C BCA ####[facility] ([address] [address] VIR MCHC (RBC) [Mass/Vol] 34.2 g/dL Normal 32-36 [facility] Comment on above: Order Comment: See S pringboard - Labs Due report. Performed By: #### C BCA ####[facility] ([address] [address] VIR MCV (RBC) [Entitic vol] 86 fL Normal 80-100 [facility] Comment on above: Order Comment: See S pringboard - Labs Due report. Performed By: #### C BCA ####[facility] ([address] [address] VIR MONOCYTES ABSOLUTE COUNT (10*3/UL) BY AUTOMATED COUNT 1.1 10*3/uL High 0.0-0.9 [facility] Comment on above: Order Comment: See S pringboard - Labs Due report. Performed By: #### C BCA ####[facility] ([facility])[address] [place] [address].[place] [address] VIR MONOCYTES RELATIVE PERCENT BY AUTOMATED COUNT 13.3 % Normal [facility] Comment on above: Order Comment: See S pringboard - Labs Due report. Performed By: #### C BCA ####[facility] ([address] [place] [address] VIR NEUTROPHILS ABSOLUTE COUNT BY AUTOMATED COUNT 6.4 10*3/uL Normal 1.5-6.6 [facility] Comment on above: Order Comment: See S pringboard - Labs Due report. Performed By: #### C BCA ####[facility] ([address] [place] [address] VIR NEUTROPHILS RELATIVE PERCENT BY AUTOMATED COUNT 79.4 % Normal [facility] Comment on above: Order Comment: See S pringboard - Labs Due report. Performed By: #### C BCA ####[facility] ([address] [place] [address] VIR Platelet mean volume (Bld) [Entitic vol] 8.3 fL Normal 7-12 [facility] Comment on above: Order Comment: See S pringboard - Labs Due report. Performed By: #### C BCA ####[facility] ([address] [place] [address] VIR Platelets (Bld) [#/Vol] 166 10*3/uL Normal 150-450 [facility] Comment on above: Order Comment: See S pringboard - Labs Due report. Performed By: #### C BCA ####[facility] ([address] [place] [address] VIR RBC COUNT 4.17 X10E12/L Normal 4.1-5.7 [facility] Comment on above: Order Comment: See S pringboard - Labs Due report. Performed By: #### C BCA ####[facility] ([facility])[address] [place] [address] VIR WBC (Bld) [#/Vol] 8.0 10*3/uL Normal 4-11 [facility] Comment on above: Order Comment: See S pringboard - Labs Due report. Performed By: #### C BCA ####[facility] ([facility])[address] [place] [address] VIR CBC auto differentialon 07-24 Basophils (Bld) [#/Vol] 0 10*3/uL 0.0 - 0.2 10*3/uL [facility] Basophils/100 WBC (Bld) 0.4 % [facility] Differential cell count method Nom (Bld) AUTOMATED DIFFERENTIAL [facility] Eosinophils (Bld) [#/Vol] 0 10*3/uL 0.0 - 0.4 10*3/uL [facility] Eosinophils/100 WBC (Bld) 0.4 % [facility] Erythrocyte distribution width (RBC) [Ratio] 18.7 % High 11.5 - 15 % [facility] Hematocrit (Bld) [Volume fraction] 35.9 % Low 39 - 50 % [facility] Hemoglobin (Bld) [Mass/Vol] 12.3 g/dL Low 13 - 17 g/dL [facility] Interpretation and review of laboratory results Abnormal [facility] Lymphocytes (Bld) [#/Vol] 0.5 10*3/uL Low 1.0 - 3.5 10*3/uL [facility] Lymphocytes/100 WBC (Bld) 6.5 % [facility] MCH (RBC) [Entitic mass] 29.4 pg 27 - 34 pg [facility] MCHC (RBC) [Mass/Vol] 34.2 g/dL 32 - 36 g/dL [facility] MCV (RBC) [Entitic vol] 86 fL 80 - 100 fL [facility] Monocytes (Bld) [#/Vol] 1.1 10*3/uL High 0.0 - 0.9 10*3/uL [facility] Monocytes/100 WBC (Bld) 13.3 % [facility] Neutrophils (Bld) [#/Vol] 6.4 10*3/uL 1.5 - 6.6 10*3/uL [facility] Neutrophils/100 WBC (Bld) 79.4 % [facility] Platelet mean volume (Bld) [Entitic vol] 8.3 fL 7 - 12 fL [facility] Platelets (Bld) [#/Vol] 166 10*3/uL [facility] RBC (Bld) [#/Vol] 4.17 10*6/uL [facility] WBC LM Ql (Sput) 8 [facility] COMPREHENSIVE METABOLIC PANE Adam 08-20-2024 Albumin [Mass/Vol] 3.8 g/dL Normal 3.2-5.3 [facility] Comment on above: Order Comment: See S pringboard - Labs Due report Performed By: #### C MP ####[facility] ([address] [address] VIR ALP [Catalytic activity/Vol] 94 U/L Normal 39-130 [facility] Comment on above: Order Comment: See S pringboard - Labs Due report Performed By: #### C MP ####[facility] ([address] [address] VIR ALT [Catalytic activity/Vol] 58 U/L High <=40 [facility] Comment on above: Order Comment: See S pringboard - Labs Due report Performed By: #### C MP ####[facility] ([address] [address] VIR Anion gap [Moles/Vol] 7 mmol/L Normal 5-15 [facility] Comment on above: Order Comment: See S pringboard - Labs Due report Performed By: #### C MP ####[facility] ([facility])[address] [place] [address] VIR AST [Catalytic activity/Vol] 37 U/L Normal <=41 [facility] Comment on above: Order Comment: See S pringboard - Labs Due report Performed By: #### C MP ####[facility] ([facility])[address] [place] [address] VIR Bilirubin [Mass/Vol] 1.0 mg/dL Normal 0.3-1.2 [facility] Comment on above: Order Comment: See S pringboard - Labs Due report Performed By: #### C MP ####[facility] ([facility] [place] [address] VIR Calcium [Mass/Vol] 9.4 mg/dL Normal 8.5-10.5 [facility] Comment on above: Order Comment: See S pringboard - Labs Due report Performed By: #### C MP ####[facility] ([facility] [place] [address] VIR Chloride [Moles/Vol] 103 mmol/L Normal 98-109 [facility] Comment on above: Order Comment: See S pringboard - Labs Due report Performed By: #### C MP ####[facility] ([facility])[address] [place], [place] [address] [place] [address] VIR CO2 [Moles/Vol] 23 mmol/L Normal 22-32 [facility] Comment on above: Order Comment: See S pringboard - Labs Due report Performed By: #### C MP ####[facility] ([facility] [place] [address] VIR Creatinine [Mass/Vol] 0.91 mg/dL Normal 0.70-1.20 [facility] Comment on above: Order Comment: See S pringboard - Labs Due report Result Comment: METH OD TRACEABLE TO IDMS STANDARD Performed By: #### C MP ####[facility] ([facility])[address] [facility] [address] VIR EGFR (CKD-EPI) NON-RACE DEPENDENT >^90 Normal >=60 [facility] Comment on above: Order Comment: See S pringboard - Labs Due report Result Comment: eGFR not reported due to non-numeric value for Creatinine.Reported eGFR is based on theCKD-EPI 2020 equation that doesnot use a race coefficient. Performed By: #### C MP ####[facility] ([facility])[address] [place] [address] [place] [address] VIR Glucose [Mass/Vol] 113 mg/dL High 65-99 [facility] Comment on above: Order Comment: See S pringboard - Labs Due report Performed By: #### C MP ####[facility] ([facility])[address] [place] [address] [place] [address] VIR Potassium [Moles/Vol] 4.1 mmol/L Normal 3.5-5.0 [facility] Comment on above: Order Comment: See S pringboard - Labs Due report Performed By: #### C MP ####[facility] ([facility])[address] [place] [address] [place] [address] VIR Protein [Mass/Vol] 7.6 g/dL Normal 6.0-8.0 [facility] Comment on above: Order Comment: See S pringboard - Labs Due report Performed By: #### C MP ####[facility] ([facility])[address] [place] [address] [place] [address] VIR Sodium [Moles/Vol] 133 mmol/L Low 134-146 [facility] Comment on above: Order Comment: See S pringboard - Labs Due report Performed By: #### C MP ####[facility] ([address] [place] [address] VIR Urea nitrogen [Mass/Vol] 11 mg/dL Normal 5-23 [facility] Comment on above: Order Comment: See S pringboard - Labs Due report Performed By: #### C MP ####[facility])[address] [place] [address].[place], [place] [address] [place] [address] metabolic pane [facility] 08-20-2024 Albumin [Mass/Vol] 3.8 g/dL 3.2 - 5.3 g/dL [facility] ALP [Catalytic activity/Vol] 94 U/L 39 - 130 U/L [facility] ALT No additional P-5'-P [Catalytic activity/Vol] 58 U/L High NINF - 40 U/L [facility] Anion gap [Moles/Vol] 7 mmol/L 5 - 15 mmol/L [facility] AST [Catalytic activity/Vol] 37 U/L NINF - 41 U/L [facility] Bilirubin [Mass/Vol] 1 mg/dL 0.3 - 1.2 mg/dL [facility] Calcium [Mass/Vol] 9.4 mg/dL 8.5 - 10. 5 mg/dL [facility] Chloride [Moles/Vol] 103 mmol/L 98 - 109 mmol/L [facility] CO2 [Moles/Vol] 23 mmol/L 22 - 32 mmol/L [facility] Creatinine [Mass/Vol] 0.91 mg/dL 0.70 - 1.20 mg/dL [facility] Comment on above: METHOD TRACEABLE TO IDMS STANDARD EGFR Non-Race Dependent - PINF [facility] Comment on above: eGFR not reported du e to non-numeric value for Creatinine. Reported eGFR is based on the CKD-EPI 202 equation that does not use a race coefficient. Glucose [Mass/Vol] 113 mg/dL High 65 - 99 mg/dL [facility] Interpretation and review of laboratory results Abnormal [facility] Potassium [Moles/Vol] 4.1 mmol/L 3.5 - 5.0 mmol/L [facility] Protein [Mass/Vol] 7.6 g/dL 6.0 - 8.0 g/dL [facility] Sodium [Moles/Vol] 133 mmol/L Low 134 - 146 mmol/L [facility] Urea nitrogen [Mass/Vol] 11 mg/dL 5 - 23 mg/dL [facility] CBC WITH AUTO DIFFERENTIALon 08-06-2024 BASOPHILS ABSOLUTE COUNT (10*3/UL) BY AUTOMATED COUNT 0.0 10*3/uL Normal 0.0-0.2 [facility] Comment on above: Order Comment: See S pringboard - Labs Due report. Performed By: #### C BCA ####[facility] ([address] [address] VIR BASOPHILS RELATIVE PERCENT BY AUTOMATED COUNT 0.2 % Normal [facility] Comment on above: Order Comment: See S pringboard - Labs Due report. Performed By: #### C BCA ####[address] [address] VIR CELLAVISION DIFFERENTIAL TYPE AUTOMATED DIFFERENTIAL Normal [facility] Comment on above: Order Comment: See S pringboard - Labs Due report. Performed By: #### C BCA ####[facility] ([address] [address] VIR Eosinophils (Bld) [#/Vol] 0.0 10*3/uL Normal 0.0-0.4 [facility] Comment on above: Order Comment: See S pringboard - Labs Due report. Performed By: #### C BCA ####[facility] ([address] [address] VIR EOSINOPHILS RELATIVE PERCENT BY AUTOMATED COUNT 0.4 % Normal [facility] Comment on above: Order Comment: See S pringboard - Labs Due report. Performed By: #### C BCA ####[facility] ([address] [address] VIR Erythrocyte distribution width (RBC) [Ratio] 17.1 % High 11.5-15 [facility] Comment on above: Order Comment: See S pringboard - Labs Due report. Performed By: #### C BCA ####[facility] ([address] [place] [address] VIR Hematocrit (Bld) [Volume fraction] 36.8 % Low 39-50 [facility] Comment on above: Order Comment: See S pringboard - Labs Due report. Performed By: #### C BCA ####[facility] ([address] [place] [address] VIR Hemoglobin (Bld) [Mass/Vol] 12.4 g/dL Low 13-17 [facility] Comment on above: Order Comment: See S pringboard - Labs Due report. Performed By: #### C BCA ####[facility] ([address] [address] VIR LYMPHOCYTES ABSOLUTE COUNT (10*3/UL) BY AUTOMATED COUNT 0.4 10*3/uL Low 1.0-3.5 [facility] Comment on above: Order Comment: See S pringboard - Labs Due report. Performed By: #### C BCA ####[facility] ([address] [address] VIR LYMPHOCYTES RELATIVE PERCENT BY AUTOMATED COUNT 7.3 % Normal [facility] Comment on above: Order Comment: See S pringboard - Labs Due report. Performed By: #### C BCA ####[facility] ([address] [place] [address] VIR MCH (RBC) [Entitic mass] 29.1 pg Normal 27-34 [facility] Comment on above: Order Comment: See S pringboard - Labs Due report. Performed By: #### C BCA ####[facility] ([address] [place] [address] VIR MCHC (RBC) [Mass/Vol] 33.8 g/dL Normal 32-36 [facility] Comment on above: Order Comment: See S pringboard - Labs Due report. Performed By: #### C BCA ####[facility] ([address] [place] [address] VIR MCV (RBC) [Entitic vol] 86 fL Normal 80-100 [facility] Comment on above: Order Comment: See S pringboard - Labs Due report. Performed By: #### C BCA ####[facility] ([address] [address] VIR MONOCYTES ABSOLUTE COUNT (10*3/UL) BY AUTOMATED COUNT 0.7 10*3/uL Normal 0.0-0.9 [facility] Comment on above: Order Comment: See S pringboard - Labs Due report. Performed By: #### C BCA ####[address] [address] VIR MONOCYTES RELATIVE PERCENT BY AUTOMATED COUNT 14.0 % Normal [facility] Comment on above: Order Comment: See S pringboard - Labs Due report. Performed By: #### C BCA ####[facility] ([address] [address] VIR NEUTROPHILS ABSOLUTE COUNT BY AUTOMATED COUNT 3.8 10*3/uL Normal 1.5-6.6 [facility] Comment on above: Order Comment: See S pringboard - Labs Due report. Performed By: #### C BCA ####[address] [address] VIR NEUTROPHILS RELATIVE PERCENT BY AUTOMATED COUNT 78.1 % Normal [facility] Comment on above: Order Comment: See S pringboard - Labs Due report. Performed By: #### C BCA ####[facility] ([address] [address] VIR Platelet mean volume (Bld) [Entitic vol] 8.0 fL Normal 7-12 [facility] Comment on above: Order Comment: See S pringboard - Labs Due report. Performed By: #### C BCA ####[facility] ([address] [place] [address] VIR Platelets (Bld) [#/Vol] 189 10*3/uL Normal 150-450 [facility] Comment on above: Order Comment: See S pringboard - Labs Due report. Performed By: #### C BCA ####[facility] ([address] [place] [address] VIR RBC COUNT 4.27 X10E12/L Normal 4.1-5.7 [facility] Comment on above: Order Comment: See S pringboard - Labs Due report. Performed By: #### C BCA ####[facility] ([address] [place] [address] VIR WBC (Bld) [#/Vol] 4.9 10*3/uL Normal 4-11 [facility] Comment on above: Order Comment: See S pringboard - Labs Due report. Performed By: #### C BCA ####[facility] ([address] [place] [address] VIR CBC auto differentialon 07-22 Basophils (Bld) [#/Vol] 0 10*3/uL 0.0 - 0.2 10*3/uL [facility] Basophils/100 WBC (Bld) 0.2 % [facility] Differential cell count method Nom (Bld) AUTOMATED DIFFERENTIAL [facility] Eosinophils (Bld) [#/Vol] 0 10*3/uL 0.0 - 0.4 10*3/uL [facility] Eosinophils/100 WBC (Bld) 0.4 % [facility] Erythrocyte distribution width (RBC) [Ratio] 17.1 % High 11.5 - 15 % [facility] Hematocrit (Bld) [Volume fraction] 36.8 % Low 39 - 50 % [facility] Hemoglobin (Bld) [Mass/Vol] 12.4 g/dL Low 13 - 17 g/dL [facility] Interpretation and review of laboratory results Abnormal [facility] Lymphocytes (Bld) [#/Vol] 0.4 10*3/uL Low 1.0 - 3.5 10*3/uL [facility] Lymphocytes/100 WBC (Bld) 7.3 % [facility] MCH (RBC) [Entitic mass] 29.1 pg 27 - 34 pg [facility] MCHC (RBC) [Mass/Vol] 33.8 g/dL 32 - 36 g/dL [facility] MCV (RBC) [Entitic vol] 86 fL 80 - 100 fL [facility] Monocytes (Bld) [#/Vol] 0.7 10*3/uL 0.0 - 0.9 10*3/uL [facility] Monocytes/100 WBC (Bld) 14 % [facility] Neutrophils (Bld) [#/Vol] 3.8 10*3/uL 1.5 - 6.6 10*3/uL [facility] Neutrophils/100 WBC (Bld) 78.1 % [facility] Platelet mean volume (Bld) [Entitic vol] 8 fL 7 - 12 fL [facility] Platelets (Bld) [#/Vol] 189 10*3/uL [facility] RBC (Bld) [#/Vol] 4.27 10*6/uL [facility] WBC LM Ql (Sput) 4.9 [facility] COMPREHENSIVE METABOLIC PANE Adam 08-06-2024 Albumin [Mass/Vol] 3.9 g/dL Normal 3.2-5.3 [facility] Comment on above: Order Comment: See S pringboard - Labs Due report Performed By: #### C MP ####[facility] ([facility])[address] [place] [address] VIR ALP [Catalytic activity/Vol] 77 U/L Normal 39-130 [facility] Comment on above: Order Comment: See S pringboard - Labs Due report Performed By: #### C MP ####[facility] ([address] [address] VIR ALT [Catalytic activity/Vol] 72 U/L High <=40 [facility] Comment on above: Order Comment: See S pringboard - Labs Due report Performed By: #### C MP ####[facility] ([facility])[address] [place] [address].[place] [address] VIR Anion gap [Moles/Vol] 10 mmol/L Normal 5-15 [facility] Comment on above: Order Comment: See S pringboard - Labs Due report Performed By: #### C MP ####[facility] ([address] [place] [address] VIR AST [Catalytic activity/Vol] 57 U/L High <=41 [facility] Comment on above: Order Comment: See S pringboard - Labs Due report Performed By: #### C MP ####[facility] ([facility])[address] [place] [address].[place] [address] VIR Bilirubin [Mass/Vol] 0.9 mg/dL Normal 0.3-1.2 [facility] Comment on above: Order Comment: See S pringboard - Labs Due report Performed By: #### C MP ####[facility] ([address] [place] [address] VIR Calcium [Mass/Vol] 9.2 mg/dL Normal 8.5-10.5 [facility] Comment on above: Order Comment: See S pringboard - Labs Due report Performed By: #### C MP ####[facility] ([address] [place] [address] VIR Chloride [Moles/Vol] 100 mmol/L Normal 98-109 [facility] Comment on above: Order Comment: See S pringboard - Labs Due report Performed By: #### C MP ####[facility] ([facility])[address] [place] [address].[place] [address] VIR CO2 [Moles/Vol] 23 mmol/L Normal 22-32 [facility] Comment on above: Order Comment: See S pringboard - Labs Due report Performed By: #### C MP ####[facility] ([facility])[address] [place] [address] [place] [address] VIR Creatinine [Mass/Vol] 0.90 mg/dL Normal 0.70-1.20 [facility] Comment on above: Order Comment: See S pringboard - Labs Due report Result Comment: METH OD TRACEABLE TO IDMS STANDARD Performed By: #### C MP ####[facility] ([facility])[address] [place] [address] [place] [address] VIR EGFR (CKD-EPI) NON-RACE DEPENDENT >^90 Normal >=60 [facility] Comment on above: Order Comment: See S pringboard - Labs Due report Result Comment: eGFR not reported due to non-numeric value for Creatinine.Reported eGFR is based on theCKD-EPI 2020 equation that doesnot use a race coefficient. Performed By: #### C MP ####[facility] ([address] [place] [address] VIR Glucose [Mass/Vol] 126 mg/dL High 65-99 [facility] Comment on above: Order Comment: See S pringboard - Labs Due report Performed By: #### C MP ####[facility] ([address] [place] [address] VIR Potassium [Moles/Vol] 3.7 mmol/L Normal 3.5-5.0 [facility] Comment on above: Order Comment: See S pringboard - Labs Due report Performed By: #### C MP ####[facility] ([address] [place] [address] VIR Protein [Mass/Vol] 7.2 g/dL Normal 6.0-8.0 [facility] Comment on above: Order Comment: See S pringboard - Labs Due report Performed By: #### C MP ####[facility] ([address] [place] [address] VIR Sodium [Moles/Vol] 133 mmol/L Low 134-146 [facility] Comment on above: Order Comment: See S pringboard - Labs Due report Performed By: #### C MP ####[facility] ([facility])[address] [place] [address] VIR Urea nitrogen [Mass/Vol] 7 mg/dL Normal 5-23 [facility] Comment on above: Order Comment: See S pringboard - Labs Due report Performed By: #### C MP ####[facility] ([facility])[address] [place] [address] VIR Comprehensive metabolic pane adam 08-06-2024 Albumin [Mass/Vol] 3.9 g/dL 3.2 - 5.3 g/dL [facility] ALP [Catalytic activity/Vol] 77 U/L 39 - 130 U/L [facility] ALT No additional P-5'-P [Catalytic activity/Vol] 72 U/L High NINF - 40 U/L [facility] Anion gap [Moles/Vol] 10 mmol/L 5 - 15 mmol/L [facility] AST [Catalytic activity/Vol] 57 U/L High NINF - 41 U/L [facility] Bilirubin [Mass/Vol] 0.9 mg/dL 0.3 - 1.2 mg/dL [facility] Calcium [Mass/Vol] 9.2 mg/dL 8.5 - 10. 5 mg/dL [facility] Chloride [Moles/Vol] 100 mmol/L 98 - 109 mmol/L [facility] CO2 [Moles/Vol] 23 mmol/L 22 - 32 mmol/L [facility] Creatinine [Mass/Vol] 0.9 mg/dL 0.70 - 1.20 mg/dL [facility] Comment on above: METHOD TRACEABLE TO IDMS STANDARD EGFR Non-Race Dependent - PINF [facility] Comment on above: eGFR not reported du e to non-numeric value for Creatinine. Reported eGFR is based on the CKD-EPI 2020 equation that does not use a race coefficient. Glucose [Mass/Vol] 126 mg/dL High 65 - 99 mg/dL [facility] Interpretation and review of laboratory results Abnormal [facility] Potassium [Moles/Vol] 3.7 mmol/L 3.5 - 5.0 mmol/L [facility] Protein [Mass/Vol] 7.2 g/dL 6.0 - 8.0 g/dL [facility] Sodium [Moles/Vol] 133 mmol/L Low 134 - 146 mmol/L [facility] Urea nitrogen [Mass/Vol] 7 mg/dL 5 - 23 mg/dL [facility] CBC WITH AUTO DIFFERENTIALon 07-23-2024 BASOPHILS ABSOLUTE COUNT (10*3/UL) BY AUTOMATED COUNT 0.0 10*3/uL Normal 0.0-0.2 [facility] Comment on above: Order Comment: See S pringboard - Labs Due report. Performed By: #### C BCA ####[address] [address] VIR BASOPHILS RELATIVE PERCENT BY AUTOMATED COUNT 0.4 % Normal [facility] Comment on above: Order Comment: See S pringboard - Labs Due report. Performed By: #### C BCA ####[address] [address] VIR CELLAVISION DIFFERENTIAL TYPE AUTOMATED DIFFERENTIAL Normal [facility] Comment on above: Order Comment: See S pringboard - Labs Due report. Performed By: #### C BCA ####[address] [address] VIR Eosinophils (Bld) [#/Vol] 0.0 10*3/uL Normal 0.0-0.4 [facility] Comment on above: Order Comment: See S pringboard - Labs Due report. Performed By: #### C BCA ####[facility] ([address] [address] VIR EOSINOPHILS RELATIVE PERCENT BY AUTOMATED COUNT 0.7 % Normal [facility] Comment on above: Order Comment: See S pringboard - Labs Due report. Performed By: #### C BCA ####[facility] ([address] [address] VIR Erythrocyte distribution width (RBC) [Ratio] 16.2 % High 11.5-15 [facility] Comment on above: Order Comment: See S pringboard - Labs Due report. Performed By: #### C BCA ####[facility] ([address] [address] VIR Hematocrit (Bld) [Volume fraction] 36.8 % Low 39-50 [facility] Comment on above: Order Comment: See S pringboard - Labs Due report. Performed By: #### C BCA ####[facility] ([address] [address] VIR Hemoglobin (Bld) [Mass/Vol] 12.5 g/dL Low 13-17 [facility] Comment on above: Order Comment: See S pringboard - Labs Due report. Performed By: #### C BCA ####[facility] ([address] [address] VIR LYMPHOCYTES ABSOLUTE COUNT (10*3/UL) BY AUTOMATED COUNT 0.6 10*3/uL Low 1.0-3.5 [facility] Comment on above: Order Comment: See S pringboard - Labs Due report. Performed By: #### C BCA ####[facility] ([address] [address] VIR LYMPHOCYTES RELATIVE PERCENT BY AUTOMATED COUNT 9.2 % Normal [facility] Comment on above: Order Comment: See S pringboard - Labs Due report. Performed By: #### C BCA ####[facility] ([address] [address] VIR MCH (RBC) [Entitic mass] 29.1 pg Normal 27-34 [facility] Comment on above: Order Comment: See S pringboard - Labs Due report. Performed By: #### C BCA ####[facility] ([address] [address] VIR MCHC (RBC) [Mass/Vol] 34.0 g/dL Normal 32-36 [facility] Comment on above: Order Comment: See S pringboard - Labs Due report. Performed By: #### C BCA ####[facility] ([address] [address] VIR MCV (RBC) [Entitic vol] 86 fL Normal 80-100 [facility] Comment on above: Order Comment: See S pringboard - Labs Due report. Performed By: #### C BCA ####[facility] ([address] [address] VIR MONOCYTES ABSOLUTE COUNT (10*3/UL) BY AUTOMATED COUNT 1.1 10*3/uL High 0.0-0.9 [facility] Comment on above: Order Comment: See S pringboard - Labs Due report. Performed By: #### C BCA ####[facility] ([address] [address] VIR MONOCYTES RELATIVE PERCENT BY AUTOMATED COUNT 15.9 % Normal [facility] Comment on above: Order Comment: See S pringboard - Labs Due report. Performed By: #### C BCA ####[facility] ([address] [address] VIR NEUTROPHILS ABSOLUTE COUNT BY AUTOMATED COUNT 4.9 10*3/uL Normal 1.5-6.6 [facility] Comment on above: Order Comment: See S pringboard - Labs Due report. Performed By: #### C BCA ####[facility] ([address] [address] VIR NEUTROPHILS RELATIVE PERCENT BY AUTOMATED COUNT 73.8 % Normal [facility] Comment on above: Order Comment: See S pringboard - Labs Due report. Performed By: #### C BCA ####[facility] ([address] [address] VIR Platelet mean volume (Bld) [Entitic vol] 7.9 fL Normal 7-12 [facility] Comment on above: Order Comment: See S pringboard - Labs Due report. Performed By: #### C BCA ####[facility] ([address] [address] VIR Platelets (Bld) [#/Vol] 163 10*3/uL Normal 150-450 [facility] Comment on above: Order Comment: See S pringboard - Labs Due report. Performed By: #### C BCA ####[facility] ([address] [address] VIR RBC COUNT 4.30 X10E12/L Normal 4.1-5.7 [facility] Comment on above: Order Comment: See S pringboard - Labs Due report. Performed By: #### C BCA ####[facility] ([address] [address] VIR WBC (Bld) [#/Vol] 6.7 10*3/uL Normal 4-11 [facility] Comment on above: Order Comment: See S pringboard - Labs Due report. Performed By: #### C BCA ####[facility] ([address] [address] VIR CBC auto differentialon 06-0 2-2024 Basophils (Bld) [#/Vol] 0 10*3/uL 0.0 - 0.2 10*3/uL [facility] Basophils/100 WBC (Bld) 0.4 % [facility] Differential cell count method Nom (Bld) AUTOMATED DIFFERENTIAL [facility] [employer] [facility] Eosinophils (Bld) [#/Vol] 0 10*3/uL 0.0 - 0.4 10*3/uL [facility] Eosinophils/100 WBC (Bld) 0.7 % [facility] Erythrocyte distribution width (RBC) [Ratio] 16.2 % High 11.5 - 15 % [facility] Hematocrit (Bld) [Volume fraction] 36.8 % Low 39 - 50 % [facility] Hemoglobin (Bld) [Mass/Vol] 12.5 g/dL Low 13 - 17 g/dL [facility] Interpretation and review of laboratory results Abnormal [facility] Lymphocytes (Bld) [#/Vol] 0.6 10*3/uL Low 1.0 - 3.5 10*3/uL [facility] Lymphocytes/100 WBC (Bld) 9.2 % [facility] MCH (RBC) [Entitic mass] 29.1 pg 27 - 34 pg [facility] MCHC (RBC) [Mass/Vol] 34 g/dL 32 - 36 g/dL [facility] MCV (RBC) [Entitic vol] 86 fL 80 - 100 fL [facility] Monocytes (Bld) [#/Vol] 1.1 10*3/uL High 0.0 - 0.9 10*3/uL [facility] Monocytes/100 WBC (Bld) 15.9 % [facility] Neutrophils (Bld) [#/Vol] 4.9 10*3/uL 1.5 - 6.6 10*3/uL [facility] Neutrophils/100 WBC (Bld) 73.8 % [facility] Platelet mean volume (Bld) [Entitic vol] 7.9 fL 7 - 12 fL [facility] Platelets (Bld) [#/Vol] 163 10*3/uL [facility] RBC (Bld) [#/Vol] 4.3 10*6/uL [facility] WBC LM Ql (Sput) 6.7 [facility] COMPREHENSIVE METABOLIC PANE Adam 07-23-2024 Albumin [Mass/Vol] 3.7 g/dL Normal 3.2-5.3 [facility] Comment on above: Order Comment: See S pringboard - Labs Due report Performed By: #### C MP ####[facility] ([address] [place] [address] VIR ALP [Catalytic activity/Vol] 52 U/L Normal 39-130 [facility] Comment on above: Order Comment: See S pringboard - Labs Due report Performed By: #### C MP ####[facility] ([facility] [place] [address] VIR ALT [Catalytic activity/Vol] 108 U/L High <=40 [facility] Comment on above: Order Comment: See S pringboard - Labs Due report Performed By: #### C MP ####[facility] ([facility] [place] [address] VIR Anion gap [Moles/Vol] 7 mmol/L Normal 5-15 [facility] Comment on above: Order Comment: See S pringboard - Labs Due report Performed By: #### C MP ####[facility] ([place] [address] [place] [address] VIR AST [Catalytic activity/Vol] 74 U/L High <=41 [facility] Comment on above: Order Comment: See S pringboard - Labs Due report Performed By: #### C MP ####[facility] ([place] [address] [place] [address] VIR Bilirubin [Mass/Vol] 0.8 mg/dL Normal 0.3-1.2 [facility] Comment on above: Order Comment: See S pringboard - Labs Due report Performed By: #### C MP ####[facility] ([facility] [place] [address] VIR Calcium [Mass/Vol] 9.0 mg/dL Normal 8.5-10.5 [facility] Comment on above: Order Comment: See S pringboard - Labs Due report Performed By: #### C MP ####[facility] ([place] [address] [place] [address] VIR Chloride [Moles/Vol] 101 mmol/L Normal 98-109 [facility] Comment on above: Order Comment: See S pringboard - Labs Due report Performed By: #### C MP ####[facility] ([address] [address] VIR CO2 [Moles/Vol] 24 mmol/L Normal 22-32 [facility] Comment on above: Order Comment: See S pringboard - Labs Due report Performed By: #### C MP ####[facility] ([address] [address] VIR Creatinine [Mass/Vol] 0.95 mg/dL Normal 0.70-1.20 [facility] Comment on above: Order Comment: See S pringboard - Labs Due report Result Comment: METH OD TRACEABLE TO IDMS STANDARD Performed By: #### C MP ####[facility] ([address] [address] VIR EGFR (CKD-EPI) NON-RACE DEPENDENT >^90 Normal >=60 [facility] Comment on above: Order Comment: See S pringboard - Labs Due report Result Comment: eGFR not reported due to non-numeric value for Creatinine.Reported eGFR is based on theCKD-EPI 2020 equation that doesnot use a race coefficient. Performed By: #### C MP ####[facility] ([address] [address] VIR Glucose [Mass/Vol] 123 mg/dL High 65-99 [facility] Comment on above: Order Comment: See S pringboard - Labs Due report Performed By: #### C MP ####[facility] ([address] [address] VIR Potassium [Moles/Vol] 3.7 mmol/L Normal 3.5-5.0 [facility] Comment on above: Order Comment: See S pringboard - Labs Due report Performed By: #### C MP ####[facility] ([facility])[address] [place] [address] VIR Protein [Mass/Vol] 6.9 g/dL Normal 6.0-8.0 [facility] Comment on above: Order Comment: See S pringboard - Labs Due report Performed By: #### C MP ####[facility] ([facility])[address] [place] [address] [place] [address] VIR Sodium [Moles/Vol] 132 mmol/L Low 134-146 [facility] Comment on above: Order Comment: See S pringboard - Labs Due report Performed By: #### C MP ####[facility] ([facility])[address] [place] [address] [place] [address] VIR Urea nitrogen [Mass/Vol] 6 mg/dL Normal 5-23 [facility] Comment on above: Order Comment: See S pringboard - Labs Due report Performed By: #### C MP ####[facility] ([facility])[address] [place] [address] [place] [address] VIR Comprehensive metabolic pane adam 07-23-2024 Albumin [Mass/Vol] 3.7 g/dL 3.2 - 5.3 g/dL [facility] ALP [Catalytic activity/Vol] 52 U/L 39 - 130 U/L [facility] ALT No additional P-5'-P [Catalytic activity/Vol] 108 U/L High NINF - 40 U/L [facility] Anion gap [Moles/Vol] 7 mmol/L 5 - 15 mmol/L [facility] AST [Catalytic activity/Vol] 74 U/L High NINF - 41 U/L [facility] Bilirubin [Mass/Vol] 0.8 mg/dL 0.3 - 1.2 mg/dL [facility] Calcium [Mass/Vol] 9 mg/dL 8.5 - 10. 5 mg/dL [facility] Chloride [Moles/Vol] 101 mmol/L 98 - 109 mmol/L [facility] CO2 [Moles/Vol] 24 mmol/L 22 - 32 mmol/L [facility] Creatinine [Mass/Vol] 0.95 mg/dL 0.70 - 1.20 mg/dL [facility] Comment on above: METHOD TRACEABLE TO IDMS STANDARD EGFR Non-Race Dependent - PINF [facility] Comment on above: eGFR not reported du e to non-numeric value for Creatinine. Reported eGFR is based on the CKD-EPI 2020 equation that does not use a race coefficient. Glucose [Mass/Vol] 123 mg/dL High 65 - 99 mg/dL [facility] Interpretation and review of laboratory results Abnormal [facility] Potassium [Moles/Vol] 3.7 mmol/L 3.5 - 5.0 mmol/L [facility] Protein [Mass/Vol] 6.9 g/dL 6.0 - 8.0 g/dL [facility] Sodium [Moles/Vol] 132 mmol/L Low 134 - 146 mmol/L [facility] Urea nitrogen [Mass/Vol] 6 mg/dL 5 - 23 mg/dL [facility] Orders Onlyon 07-14-2024 Orders Only [id number] Arvin Julien 1980 M Date Provider Department Center 07/14/2024 [facility] Family History Problem Relation Age of Onset No Known Problems Mother Heart disease Father Heart failure Father Heart failure Brother Heart disease Brother Family Status - Relation Status Age at Mother Alive Father Brother Normal [facility] CBC WITH AUTO DIFFERENTIALon 07-09-2024 BASOPHILS ABSOLUTE COUNT (10*3/UL) BY AUTOMATED COUNT 0.0 10*3/uL Normal 0.0-0.2 [facility] Comment on above: Order Comment: See S pringboard - Labs Due report. Performed By: #### C BCA ####[facility] ([facility])[address] [place] [id number] VIR BASOPHILS RELATIVE PERCENT BY AUTOMATED COUNT 0.5 % Normal [facility] Comment on above: Order Comment: See S pringboard - Labs Due report. Performed By: #### C BCA ####[facility] ([facility])[address] [place] [address] [place] [address] VIR CELLAVISION DIFFERENTIAL TYPE AUTOMATED DIFFERENTIAL Normal [facility] Comment on above: Order Comment: See S pringboard - Labs Due report. Performed By: #### C BCA ####[facility] ([address] [address] VIR Eosinophils (Bld) [#/Vol] 0.1 10*3/uL Normal 0.0-0.4 [facility] Comment on above: Order Comment: See S pringboard - Labs Due report. Performed By: #### C BCA ####[facility] ([address] [address] VIR EOSINOPHILS RELATIVE PERCENT BY AUTOMATED COUNT 1.5 % Normal [facility] Comment on above: Order Comment: See S pringboard - Labs Due report. Performed By: #### C BCA ####[facility] ([address] [address] VIR Erythrocyte distribution width (RBC) [Ratio] 14.8 % Normal 11.5-15 [facility] Comment on above: Order Comment: See S pringboard - Labs Due report. Performed By: #### C BCA ####[facility] ([address] [address] VIR Hematocrit (Bld) [Volume fraction] 38.9 % Low 39-50 [facility] Comment on above: Order Comment: See S pringboard - Labs Due report. Performed By: #### C BCA ####[facility] ([address] [address] VIR Hemoglobin (Bld) [Mass/Vol] 13.1 g/dL Normal 13-17 [facility] Comment on above: Order Comment: See S pringboard - Labs Due report. Performed By: #### C BCA ####[facility] ([address] [address] VIR LYMPHOCYTES ABSOLUTE COUNT (10*3/UL) BY AUTOMATED COUNT 0.6 10*3/uL Low 1.0-3.5 [facility] Comment on above: Order Comment: See S pringboard - Labs Due report. Performed By: #### C BCA ####[facility] ([address] [address] VIR LYMPHOCYTES RELATIVE PERCENT BY AUTOMATED COUNT 14.4 % Normal [facility] Comment on above: Order Comment: See S pringboard - Labs Due report. Performed By: #### C BCA ####[facility] ([address] [address] VIR MCH (RBC) [Entitic mass] 28.5 pg Normal 27-34 [facility] Comment on above: Order Comment: See S pringboard - Labs Due report. Performed By: #### C BCA ####[facility] ([address] [address] VIR MCHC (RBC) [Mass/Vol] 33.6 g/dL Normal 32-36 [facility] Comment on above: Order Comment: See S pringboard - Labs Due report. Performed By: #### C BCA ####[facility] ([address] [address] VIR MCV (RBC) [Entitic vol] 85 fL Normal 80-100 [facility] Comment on above: Order Comment: See S pringboard - Labs Due report. Performed By: #### C BCA ####[facility] ([address] [address] VIR MONOCYTES ABSOLUTE COUNT (10*3/UL) BY AUTOMATED COUNT 0.6 10*3/uL Normal 0.0-0.9 [facility] Comment on above: Order Comment: See S pringboard - Labs Due report. Performed By: #### C BCA ####[facility] ([address] [place] [address] VIR MONOCYTES RELATIVE PERCENT BY AUTOMATED COUNT 13.4 % Normal [facility] Comment on above: Order Comment: See S pringboard - Labs Due report. Performed By: #### C BCA ####[facility] ([address] [place] [address] VIR NEUTROPHILS ABSOLUTE COUNT BY AUTOMATED COUNT 3.0 10*3/uL Normal 1.5-6.6 [facility] Comment on above: Order Comment: See S pringboard - Labs Due report. Performed By: #### C BCA ####[facility] ([address] [address] VIR NEUTROPHILS RELATIVE PERCENT BY AUTOMATED COUNT 70.2 % Normal [facility] Comment on above: Order Comment: See S pringboard - Labs Due report. Performed By: #### C BCA ####[facility] ([address] [place] [address] VIR Platelet mean volume (Bld) [Entitic vol] 7.9 fL Normal 7-12 [facility] Comment on above: Order Comment: See S pringboard - Labs Due report. Performed By: #### C BCA ####[facility] ([address] [address] VIR Platelets (Bld) [#/Vol] 159 10*3/uL Normal 150-450 [facility] Comment on above: Order Comment: See S pringboard - Labs Due report. Performed By: #### C BCA ####[facility] ([address] [address] VIR RBC COUNT 4.58 X10E12/L Normal 4.1-5.7 [facility] Comment on above: Order Comment: See S pringboard - Labs Due report. Performed By: #### C BCA ####[facility] ([address] [address] VIR WBC (Bld) [#/Vol] 4.3 10*3/uL Normal 4-11 [facility] Comment on above: Order Comment: See S clarissaoard - Labs Due report. Performed By: #### C SPENCER ####[facility] ([facility])[address] [place] [address] VIR CBC auto differentialon 06-21 Basophils (Bld) [#/Vol] 0 10*3/uL 0.0 - 0.2 10*3/uL [facility] Basophils/100 WBC (Bld) 0.5 % [facility] Differential cell count method Nom (Bld) AUTOMATED DIFFERENTIAL [facility] Eosinophils (Bld) [#/Vol] 0.1 10*3/uL 0.0 - 0.4 10*3/uL [facility] Eosinophils/100 WBC (Bld) 1.5 % [facility] Erythrocyte distribution width (RBC) [Ratio] 14.8 % 11.5 - 15 % [facility] Hematocrit (Bld) [Volume fraction] 38.9 % Low 39 - 50 % [facility] Hemoglobin (Bld) [Mass/Vol] 13.1 g/dL 13 - 17 g/dL [facility] Interpretation and review of laboratory results Abnormal [facility] Lymphocytes (Bld) [#/Vol] 0.6 10*3/uL Low 1.0 - 3.5 10*3/uL [facility] Lymphocytes/100 WBC (Bld) 14.4 % [facility] MCH (RBC) [Entitic mass] 28.5 pg 27 - 34 pg [facility] MCHC (RBC) [Mass/Vol] 33.6 g/dL 32 - 36 g/dL [facility] MCV (RBC) [Entitic vol] 85 fL 80 - 100 fL [facility] Monocytes (Bld) [#/Vol] 0.6 10*3/uL 0.0 - 0.9 10*3/uL [facility] Monocytes/100 WBC (Bld) 13.4 % [facility] Neutrophils (Bld) [#/Vol] 3 10*3/uL 1.5 - 6.6 10*3/uL [facility] Neutrophils/100 WBC (Bld) 70.2 % [facility] Platelet mean volume (Bld) [Entitic vol] 7.9 fL 7 - 12 fL [facility] Platelets (Bld) [#/Vol] 159 10*3/uL [facility] RBC (Bld) [#/Vol] 4.58 10*6/uL [facility] WBC LM Ql (Sput) 4.3 [facility] COMPREHENSIVE METABOLIC PANE Adam 07-09-2024 Albumin [Mass/Vol] 3.5 g/dL Normal 3.2-5.3 [facility] Comment on above: Order Comment: See S pringboard - Labs Due report Performed By: #### C MP ####[facility] ([address] [address] VIR ALP [Catalytic activity/Vol] 53 U/L Normal 39-130 [facility] Comment on above: Order Comment: See S pringboard - Labs Due report Performed By: #### C MP ####[facility] ([address] [address] VIR ALT [Catalytic activity/Vol] 74 U/L High <=40 [facility] Comment on above: Order Comment: See S pringboard - Labs Due report Performed By: #### C MP ####[facility] ([address] [address] VIR Anion gap [Moles/Vol] 7 mmol/L Normal 5-15 [facility] Comment on above: Order Comment: See S pringboard - Labs Due report Performed By: #### C MP ####[facility] ([address] [address] VIR AST [Catalytic activity/Vol] 54 U/L High <=41 [facility] Comment on above: Order Comment: See S pringboard - Labs Due report Performed By: #### C MP ####[facility] ([facility])[address] [place] [address] [place] [address] VIR Bilirubin [Mass/Vol] 0.6 mg/dL Normal 0.3-1.2 [facility] Comment on above: Order Comment: See S pringboard - Labs Due report Performed By: #### C MP ####[facility] ([facility])[address] [place] [address] [place] [address] VIR Calcium [Mass/Vol] 8.3 mg/dL Low 8.5-10.5 [facility] Comment on above: Order Comment: See S pringboard - Labs Due report Performed By: #### C MP ####[facility] ([facility])[address] [place] [address] [place] [address] VIR Chloride [Moles/Vol] 104 mmol/L Normal 98-109 [facility] Comment on above: Order Comment: See S pringboard - Labs Due report Performed By: #### C MP ####[facility] ([address] [place] [address] VIR CO2 [Moles/Vol] 23 mmol/L Normal 22-32 [facility] Comment on above: Order Comment: See S pringboard - Labs Due report Performed By: #### C MP ####[facility] ([address] [place] [address] VIR Creatinine [Mass/Vol] 0.88 mg/dL Normal 0.70-1.20 [facility] Comment on above: Order Comment: See S pringboard - Labs Due report Result Comment: METH OD TRACEABLE TO IDMS STANDARD Performed By: #### C MP ####[facility] ([facility])[address] [place] [address] [place] [address] VIR EGFR (CKD-EPI) NON-RACE DEPENDENT >^90 Normal >=60 [facility] Comment on above: Order Comment: See S pringboard - Labs Due report Result Comment: eGFR not reported due to non-numeric value for Creatinine.Reported eGFR is based on theCKD-EPI 2020 equation that doesnot use a race coefficient. Performed By: #### C MP ####[facility] ([facility])[address] [place], [place] [address] [place] [address] VIR Glucose [Mass/Vol] 102 mg/dL High 65-99 [facility] Comment on above: Order Comment: See S pringboard - Labs Due report Performed By: #### C MP ####[facility] ([facility])[address] [place], [place] [address] [place] [address] VIR Potassium [Moles/Vol] 3.7 mmol/L Normal 3.5-5.0 [facility] Comment on above: Order Comment: See S pringboard - Labs Due report Performed By: #### C MP ####[facility] ([address] [place] [address] VIR Protein [Mass/Vol] 7.1 g/dL Normal 6.0-8.0 [facility] Comment on above: Order Comment: See S pringboard - Labs Due report Performed By: #### C MP ####[facility] ([address] [place] [address] VIR Sodium [Moles/Vol] 134 mmol/L Normal 134-146 [facility] Comment on above: Order Comment: See S pringboard - Labs Due report Performed By: #### C MP ####[facility] ([address] [place] [address] VIR Urea nitrogen [Mass/Vol] 5 mg/dL Normal 5-23 [facility] Comment on above: Order Comment: See S pringboard - Labs Due report Performed By: #### C MP ####[facility] ([facility])[address] [place], [place] [address] [place] [address] VIR Comprehensive metabolic pane adam 07-09-2024 Albumin [Mass/Vol] 3.5 g/dL 3.2 - 5.3 g/dL [facility] ALP [Catalytic activity/Vol] 53 U/L 39 - 130 U/L [facility] ALT No additional P-5'-P [Catalytic activity/Vol] 74 U/L High NINF - 40 U/L [facility] Anion gap [Moles/Vol] 7 mmol/L 5 - 15 mmol/L [facility] AST [Catalytic activity/Vol] 54 U/L High NINF - 41 U/L [facility] Bilirubin [Mass/Vol] 0.6 mg/dL 0.3 - 1.2 mg/dL [facility] Calcium [Mass/Vol] 8.3 mg/dL Low 8.5 - 10. 5 mg/dL [facility] Chloride [Moles/Vol] 104 mmol/L 98 - 109 mmol/L [facility] CO2 [Moles/Vol] 23 mmol/L 22 - 32 mmol/L [facility] Creatinine [Mass/Vol] 0.88 mg/dL 0.70 - 1.20 mg/dL [facility] Comment on above: METHOD TRACEABLE TO IDMS STANDARD EGFR Non-Race Dependent - PINF [facility] Comment on above: eGFR not reported du e to non-numeric value for Creatinine. Reported eGFR is based on the CKD-EPI 2020 equation that does not use a race coefficient. Glucose [Mass/Vol] 102 mg/dL High 65 - 99 mg/dL [facility] Interpretation and review of laboratory results Abnormal [facility] Potassium [Moles/Vol] 3.7 mmol/L 3.5 - 5.0 mmol/L [facility] Protein [Mass/Vol] 7.1 g/dL 6.0 - 8.0 g/dL [facility] Sodium [Moles/Vol] 134 mmol/L 134 - 146 mmol/L [facility] Urea nitrogen [Mass/Vol] 5 mg/dL 5 - 23 mg/dL [facility] CBC WITH AUTO DIFFERENTIALon 06-25-2024 BASOPHILS ABSOLUTE COUNT (10*3/UL) BY AUTOMATED COUNT 0.0 10*3/uL Normal [facility] Comment on above: Order Comment: See S pringboard - Labs Due report. Performed By: #### C BCA ####[facility] ([address] [place] [address] VIR BASOPHILS RELATIVE PERCENT BY AUTOMATED COUNT 0.5 % Normal [facility] Comment on above: Order Comment: See S pringboard - Labs Due report. Performed By: #### C BCA ####[facility] ([address] [place] [address] VIR CELLAVISION DIFFERENTIAL TYPE AUTOMATED DIFFERENTIAL Normal [facility] Comment on above: Order Comment: See S pringboard - Labs Due report. Performed By: #### C BCA ####[facility] ([address] [place] [address] VIR Eosinophils (Bld) [#/Vol] 0.1 10*3/uL Normal [facility] Comment on above: Order Comment: See S pringboard - Labs Due report. Performed By: #### C BCA ####[facility] ([address] [place] [address] VIR EOSINOPHILS RELATIVE PERCENT BY AUTOMATED COUNT 2.1 % Normal [facility] Comment on above: Order Comment: See S pringboard - Labs Due report. Performed By: #### C BCA ####[facility] ([address] [place] [address] VIR Erythrocyte distribution width (RBC) [Ratio] 15.0 % Normal 11.5-15 [facility] Comment on above: Order Comment: See S pringboard - Labs Due report. Performed By: #### C BCA ####[facility] ([address] [place] [address] VIR Hematocrit (Bld) [Volume fraction] 38.5 % Low 39-50 [facility] Comment on above: Order Comment: See S pringboard - Labs Due report. Performed By: #### C BCA ####[facility] ([address] [place] [address] VIR Hemoglobin (Bld) [Mass/Vol] 13.1 g/dL Normal 13-17 [facility] Comment on above: Order Comment: See S pringboard - Labs Due report. Performed By: #### C BCA ####[facility] ([address] [place] [address] VIR LYMPHOCYTES ABSOLUTE COUNT (10*3/UL) BY AUTOMATED COUNT 0.9 10*3/uL Normal [facility] Comment on above: Order Comment: See S pringboard - Labs Due report. Performed By: #### C BCA ####[address] [address] VIR LYMPHOCYTES RELATIVE PERCENT BY AUTOMATED COUNT 16.3 % Normal [facility] Comment on above: Order Comment: See S pringboard - Labs Due report. Performed By: #### C BCA ####[facility] ([address] [address] VIR MCH (RBC) [Entitic mass] 28.9 pg Normal 27-34 [facility] Comment on above: Order Comment: See S pringboard - Labs Due report. Performed By: #### C BCA ####[address] [address] VIR MCHC (RBC) [Mass/Vol] 34.0 g/dL Normal 32-36 [facility] Comment on above: Order Comment: See S pringboard - Labs Due report. Performed By: #### C BCA ####[facility] ([address] [address] VIR MCV (RBC) [Entitic vol] 85 fL Normal 80-100 [facility] Comment on above: Order Comment: See S pringboard - Labs Due report. Performed By: #### C BCA ####[facility] ([address] [place] [address] VIR MONOCYTES ABSOLUTE COUNT (10*3/UL) BY AUTOMATED COUNT 0.6 10*3/uL Normal [facility] Comment on above: Order Comment: See S pringboard - Labs Due report. Performed By: #### C BCA ####[facility] ([facility])[address] [place] [address].[place] [address] VIR MONOCYTES RELATIVE PERCENT BY AUTOMATED COUNT 11.0 % Normal [facility] Comment on above: Order Comment: See S pringboard - Labs Due report. Performed By: #### C BCA ####[facility] ([address] [place] [address] VIR NEUTROPHILS ABSOLUTE COUNT BY AUTOMATED COUNT 3.9 10*3/uL Normal [facility] Comment on above: Order Comment: See S pringboard - Labs Due report. Performed By: #### C BCA ####[facility] ([address] [place] [address] VIR NEUTROPHILS RELATIVE PERCENT BY AUTOMATED COUNT 70.1 % Normal [facility] Comment on above: Order Comment: See S pringboard - Labs Due report. Performed By: #### C BCA ####[facility] ([address] [place] [address] VIR Platelet mean volume (Bld) [Entitic vol] 8.0 fL Normal 7-12 [facility] Comment on above: Order Comment: See S pringboard - Labs Due report. Performed By: #### C BCA ####[facility] ([address] [place] [address] VIR Platelets (Bld) [#/Vol] 219 10*3/uL Normal 150-450 [facility] Comment on above: Order Comment: See S pringboard - Labs Due report. Performed By: #### C BCA ####[facility] ([address] [place] [address] VIR RBC COUNT 4.52 X10E12/L Normal 4.1-5.7 [facility] Comment on above: Order Comment: See S pringboard - Labs Due report. Performed By: #### C BCA ####[facility] ([facility])[address] [place] [address] VIR WBC (Bld) [#/Vol] 5.5 10*3/uL Normal 4-11 [facility] Comment on above: Order Comment: See S pringboard - Labs Due report. Performed By: #### C BCA ####[facility] ([address] [place] [address] VIR CBC auto differentialon 050 Basophils (Bld) [#/Vol] 0 10*3/uL [facility] Basophils/100 WBC (Bld) 0.5 % [facility] Differential cell count method Nom (Bld) AUTOMATED DIFFERENTIAL [facility] Eosinophils (Bld) [#/Vol] 0.1 10*3/uL [facility] Eosinophils/100 WBC (Bld) 2.1 % [facility] Erythrocyte distribution width (RBC) [Ratio] 15 % 11.5 - 15 % [facility] Hematocrit (Bld) [Volume fraction] 38.5 % Low 39 - 50 % [facility] Hemoglobin (Bld) [Mass/Vol] 13.1 g/dL 13 - 17 g/dL [facility] Interpretation and review of laboratory results Abnormal [facility] Lymphocytes (Bld) [#/Vol] 0.9 10*3/uL [facility] Lymphocytes/100 WBC (Bld) 16.3 % [facility] MCH (RBC) [Entitic mass] 28.9 pg 27 - 34 pg [facility] MCHC (RBC) [Mass/Vol] 34 g/dL 32 - 36 g/dL [facility] MCV (RBC) [Entitic vol] 85 fL 80 - 100 fL [facility] Monocytes (Bld) [#/Vol] 0.6 10*3/uL [facility] Monocytes/100 WBC (Bld) 11 % [facility] Neutrophils (Bld) [#/Vol] 3.9 10*3/uL [facility] Neutrophils/100 WBC (Bld) 70.1 % [facility] Platelet mean volume (Bld) [Entitic vol] 8 fL 7 - 12 fL [facility] Platelets (Bld) [#/Vol] 219 10*3/uL [facility] RBC (Bld) [#/Vol] 4.52 10*6/uL [facility] WBC LM Ql (Sput) 5.5 [facility] COMPREHENSIVE METABOLIC PANE Adam 06-25-2024 Albumin [Mass/Vol] 3.6 g/dL Normal 3.2-5.3 [facility] Comment on above: Order Comment: See S pringboard - Labs Due report Performed By: #### C MP ####[facility] ([address] [address] VIR ALP [Catalytic activity/Vol] 48 U/L Normal 39-130 [facility] Comment on above: Order Comment: See S pringboard - Labs Due report Performed By: #### C MP ####[facility] ([address] [address] VIR ALT [Catalytic activity/Vol] 13 U/L Normal <=40 [facility] Comment on above: Order Comment: See S pringboard - Labs Due report Performed By: #### C MP ####[facility] ([address] [address] VIR Anion gap [Moles/Vol] 7 mmol/L Normal 5-15 [facility] Comment on above: Order Comment: See S pringboard - Labs Due report Performed By: #### C MP ####[facility] ([address] [address] VIR AST [Catalytic activity/Vol] 18 U/L Normal <=41 [facility] Comment on above: Order Comment: See S pringboard - Labs Due report Performed By: #### C MP ####[facility] ([facility] [address] [address] VIR Bilirubin [Mass/Vol] 0.7 mg/dL Normal 0.3-1.2 [facility] Comment on above: Order Comment: See S pringboard - Labs Due report Performed By: #### C MP ####[facility] ([address] [place] [address] VIR Calcium [Mass/Vol] 9.2 mg/dL Normal 8.5-10.5 [facility] Comment on above: Order Comment: See S pringboard - Labs Due report Performed By: #### C MP ####[facility] ([address] [place] [address] VIR Chloride [Moles/Vol] 104 mmol/L Normal 98-109 [facility] Comment on above: Order Comment: See S pringboard - Labs Due report Performed By: #### C MP ####[facility] ([address] [place] [address] VIR CO2 [Moles/Vol] 24 mmol/L Normal 22-32 [facility] Comment on above: Order Comment: See S pringboard - Labs Due report Performed By: #### C MP ####[facility] ([address] [place] [address] VIR Creatinine [Mass/Vol] 0.90 mg/dL Normal 0.70-1.20 [facility] Comment on above: Order Comment: See S pringboard - Labs Due report Result Comment: METH OD TRACEABLE TO IDMS STANDARD Performed By: #### C MP ####[facility] ([address] [place] [address] VIR EGFR (CKD-EPI) NON-RACE DEPENDENT >^90 Normal >=60 [facility] Comment on above: Order Comment: See S pringboard - Labs Due report Result Comment: eGFR not reported due to non-numeric value for Creatinine.Reported eGFR is based on theCKD-EPI 2020 equation that doesnot use a race coefficient. Performed By: #### C MP ####[facility] ([facility])[address] [place] [address] VIR Glucose [Mass/Vol] 128 mg/dL High 65-99 [facility] Comment on above: Order Comment: See S pringboard - Labs Due report Performed By: #### C MP ####[facility] ([facility])[address] [place], [place] [address] [address] VIR Potassium [Moles/Vol] 3.8 mmol/L Normal 3.5-5.0 [facility] Comment on above: Order Comment: See S pringboard - Labs Due report Performed By: #### C MP ####[facility] ([address] [place] [address] VIR Protein [Mass/Vol] 7.0 g/dL Normal 6.0-8.0 [facility] Comment on above: Order Comment: See S pringboard - Labs Due report Performed By: #### C MP ####[facility] ([facility])[address] [place], [place] [address] [place] [address] VIR Sodium [Moles/Vol] 135 mmol/L Normal 134-146 [facility] Comment on above: Order Comment: See S pringboard - Labs Due report Performed By: #### C MP ####[facility] ([facility])[address] [place], [place] [address] [place] [address] VIR Urea nitrogen [Mass/Vol] 11 mg/dL Normal 5-23 [facility] Comment on above: Order Comment: See S pringboard - Labs Due report Performed By: #### C MP ####[facility] ([facility])[address] [place], [place] [address] [place] [address] VIR Comprehensive metabolic pane adam 06-25-2024 Albumin [Mass/Vol] 3.6 g/dL 3.2 - 5.3 g/dL [facility] ALP [Catalytic activity/Vol] 48 U/L 39 - 130 U/L [facility] ALT No additional P-5'-P [Catalytic activity/Vol] 13 U/L NINF - 40 U/L [facility] Anion gap [Moles/Vol] 7 mmol/L 5 - 15 mmol/L [facility] AST [Catalytic activity/Vol] 18 U/L NINF - 41 U/L [facility] Bilirubin [Mass/Vol] 0.7 mg/dL 0.3 - 1.2 mg/dL [facility] Calcium [Mass/Vol] 9.2 mg/dL 8.5 - 10. 5 mg/dL [facility] Chloride [Moles/Vol] 104 mmol/L 98 - 109 mmol/L [facility] CO2 [Moles/Vol] 24 mmol/L 22 - 32 mmol/L [facility] Creatinine [Mass/Vol] 0.9 mg/dL 0.70 - 1.20 mg/dL [facility] Comment on above: METHOD TRACEABLE TO IDWV STANDARD EGFR Non-Race Dependent - PINF [facility] Comment on above: eGFR not reported du e to non-numeric value for Creatinine. Reported eGFR is based on the CKD-EPI 2020 equation that does not use a race coefficient. Glucose [Mass/Vol] 128 mg/dL High 65 - 99 mg/dL [facility] Interpretation and review of laboratory results Abnormal [facility] Potassium [Moles/Vol] 3.8 mmol/L 3.5 - 5.0 mmol/L [facility] Protein [Mass/Vol] 7 g/dL 6.0 - 8.0 g/dL [facility] Sodium [Moles/Vol] 135 mmol/L 134 - 146 mmol/L [facility] Urea nitrogen [Mass/Vol] 11 mg/dL 5 - 23 mg/dL [facility] Office Visiton 06-06-2024 Follow-up visit [id number] Arvin Julien 1980 M Date Provider Department Center 06/06/2024 [id number], ADAM BH CARD [facility] Family History Problem Relation Age of Onset No Known Problems Mother Heart disease Father Heart failure Father Heart failure Brother Heart disease Brother Family Status - Relation Status Age at Mother Alive Father Brother Level of Service:82606 PA OFFICE/OUTPATIENT ESTABLISHED LOW MDM 20 MIN Normal [facility] Orders Onlyon 06-06-2024 Orders Only [id number] Arvin Julien 1980 M Date Provider Department Center 06/06/2024 FEDE SAUCEDO Family History Problem Relation Age of Onset No Known Problems Mother Heart disease Father Heart failure Father Heart failure Brother Heart disease Brother Family Status - Relation Status Age at Mother Alive Father Brother Normal [facility] PET CT SKULL TO THIGHon 05-[address] SKULL TO THIGH Normal [facility] HPon 05-07-2024 [facility] Electrophysiology Consult Note [place] [facility] Reason for visit: afib 05/07/24 Pt here for AVN ablation. 04/17/24 Patient here with questions s/p Medtronic Micra implant on 03/14/2024. C/o SOB w/wo exertion and palpitations. Denies chest pain and bleeding on Eliquis. Going thru chemotherapy right now. He is very anxious and restless. HPI: Arvin Julien is a 44 y.o. year old with past medical history of paroxsymal atrial fibrillation s/p cardioversion in the past and most recently while at [facility] in October 2023 when hospitalized for pneumonia, stage IV lung cancer undergoing chemoradiation, heart failure, here to discuss afib management per Dr. Schafer. Says he hasn't been out of afib for months. Patient was cardioverted on 12/09/23 and was seen back outpatient back in atrial fibrillation. Patient is very symptomatic with afib, feels dizzy/lightheaded and is fatigued. Dr. Schafer reduced spironolactone to 25mg at last visit in Nov 2023. Denies chest pain. Gets palpitations and epistaxis sometimes . PMH: Past Medical History: Diagnosis Date Abnormal ECG Anxiety Arrhythmia Atrial fibrillation (CMS/HCC) Cancer (CMS/HCC) Drug abuse (CMS/HCC) GERD (gastroesophageal reflux disease) Hypertension Irregular heart beat Pulmonary mass Shortness of breath Sleep apnea USES C-PAP PSH: Past Surgical History: Procedure Laterality Date CARDIOVERSION CARPAL TUNNEL RELEASE Bilateral 2020 TONSILLECTOMY UVULOPALATOPHARYNGOPLASTY 01/2017 SH: Social Determinants of Health Tobacco Use: Medium Risk (04/26/2024) Received from [facility] Patient History Smoking Tobacco Use: Former Smokeless Tobacco Use: Never Passive Exposure: Not on file Alcohol Use: Not At Risk (11/30/2023) AUDIT-C Frequency of Alcohol Consumption: Never Average Number of Drinks: Patient does not drink Frequency of Binge Drinking: Never Financial Resource Strain: Low Risk (11/30/2023) Overall Financial Resource Strain (CARDIA) Difficulty of Paying Living Expenses: Not hard at all Recent Concern: Financial Resource Strain - High Risk (09/09/2023) [facility] Overall Financial Resource Strain (CARDIA) Difficulty of Paying Living Expenses: Hard Food Insecurity: No Food Insecurity (11/30/2023) Hunger Vital Sign Worried About Running Out of Food in the Last Year: Never true Ran Out of Food in the Last Year: Not on file Recent Concern: Food Insecurity - Food Insecurity Present (09/09/2023) Received from [facility] Hunger Screening Within the past 12 months we worried whether our food would run out before we got money to buy more.: Often True Within the past 12 months the food we bought just didn't last and we didn't have money to get more.: Often True Transportation Needs: No Transportation Needs (11/30/2023) Transportation Lack of Transportation (Medical): No Lack of Transportation (Non-Medical): Not on file Physical Activity: Insufficiently Active (11/30/2023) Exercise Vital Sign Days of Exercise per Week: 3 days Minutes of Exercise per Session: 30 min Stress: Not on file Social Connections: Not on file Intimate Partner Violence: Unknown (11/30/2023) Humiliation, Afraid, Rape, and Kick questionnaire Fear of Current or Ex-Partner: No Emotionally Abused: Not on file Physically Abused: Not on file Sexually Abused: Not on file Depression: Not at risk (11/30/2023) PHQ-2 PHQ-2 Score: 0 Housing Stability: Low Risk (11/30/2023) Housing Stability Vital Sign Unable to Pay for Housing in the Last Year: Not on file Number of Places Lived in the Last Year: Not on file Unstable Housing in the Last Year: No Utilities: Not At Risk (11/30/2023) [facility] Utilities Threatened with loss of utilities: No Health Literacy: Not on file Allergies: Allergies Allergen Reactions Celecoxib GI intolerance and Hives Other reaction(s): GI Distress, Hives Weight: 122kg Visit Vitals BP 122/83 Pulse 79 Resp 16 SpO2 97% Smoking Status Former Meds: No current facility-administered medications on file prior to encounter. Current Outpatient Medications on File Prior to Encounter Medication Sig Dispense Refill amiodarone (Pacerone) 200 mg tablet Take 1 tablet (200 mg) by mouth once daily as directed. 90 tablet 3 apixaban (Eliquis) 5 mg tablet Take 1 tablet (5 mg) by mouth two times daily. Do not start before March 16, 2024. 60 tablet 0 buprenorphine-naloxone (Suboxone) 8-2 mg SL film dissolve 1 FILM under the tongue twice a day dapagliflozin propanediol (Farxiga) 10 mg Take 1 tablet (10 mg) by mouth once daily as directed. 90 tablet 3 LORazepam (Ativan) 0.5 mg tablet Take 1 mg by mouth every 12 (twelve) hours if needed for anxiety. losartan (Cozaar) 25 mg tablet Take 1 tablet (25 mg) by mouth once daily as directed. 90 tablet 3 metoprolol succinate XL (Toprol-XL) 100 mg (more content not included)... [facility] NURSNOTEon 05-07-2024 NURSNOTE RN educated pt on d/ c instructions. This included: site care, limited physical activity, resume normal diet, future appointments, medications, and moderate sedation instructions. RN educated pt on when to notify physician and when to go to the hospital. RN encouraged pt to voice any questions or concerns, and answered any questions or concerns if pt verbalized. Pt was wheeled off of unit with all of belongings. [facility] CBC AND AUTO DIFFon 04-24-19 25 ABSOLUTE BASOPHIL 0.1 X10E9/L Normal 0.0-0.2 [facility] Comment on above: Performed By: #### C MP, CBCA ####[facility] ([id number])[address] [place] [address] Basophils/100 WBC (Bld) 2.0 % Normal [facility] Comment on above: Result Comment: Axel ected on 04/23 AT 1722: Previously reported as 2.9 Performed By: #### C MP, CBCA ####[facility] ([id number])[address] [place] [address] 6[address] Eosinophils (Bld) [#/Vol] 0.1 10*3/uL Normal 0.0-0.4 [facility] Comment on above: Result Comment: Axel ected on 04/23 AT 1722: Previously reported as 0.2 Performed By: #### C MP, CBCA ####[facility] ([id number])[address] [place] [address]13 Eosinophils/100 WBC (Bld) 2.0 % Normal [facility] Comment on above: Result Comment: Axel ected on 04/23 AT 1722: Previously reported as 8.8 Performed By: #### C MP, CBCA ####[facility] ([id number])[address] [place] [address] 11785 Erythrocyte distribution width (RBC) [Ratio] 14.8 % Normal 11.5-15.0 [facility] Comment on above: Performed By: #### C MP, CBCA ####[facility] ([id number])[address] [place] [address] Hematocrit (Bld) [Volume fraction] 36.3 % Low 39-49 [facility] Comment on above: Performed By: #### C MP, CBCA ####[facility] ([id number])[address] [place] [address] Hemoglobin (Bld) [Mass/Vol] 12.4 g/dL Low 13.0-17.0 [facility] Comment on above: Performed By: #### C MP, CBCA ####[facility] ([id number])[address] [place] [address]227 LYMPHOCYTE, ATYPICAL 0.0 % Normal [facility] Comment on above: Result Comment: Axel ected on 04/23 AT 1722: Previously reported as 2.0 Performed By: #### C MP, CBCA ####[facility] ([id number])[address] [place] [address]76 Lymphocytes (Bld) [#/Vol] 0.4 10*3/uL Low 1.0-3.5 [facility] Comment on above: Result Comment: Axel ected on 04/23 AT 1722: Previously reported as 1.9 Performed By: #### C MP, CBCA ####[facility] ([id number])[address] [place] [address] 59260 Lymphocytes/100 WBC (Bld) 14.0 % Normal [facility] Comment on above: Result Comment: Axel ected on 04/23 AT 1722: Previously reported as 71.6 Performed By: #### C MP, CBCA ####[facility] ([id number])[address] [place] [address] 89146 MCH (RBC) [Entitic mass] 29.0 pg Normal 27-34 [facility] Comment on above: Performed By: #### C MP, CBCA ####[facility] ([id number])[address] [place] [address] 33918 MCHC (RBC) [Mass/Vol] 34.1 g/dL Normal 32-36 [facility] Comment on above: Performed By: #### C MP, CBCA ####[facility] ([id number])[address] [place] [address] [place] [address] MCV (RBC) [Entitic vol] 85 fL Normal 80-100 [facility] Comment on above: Performed By: #### C MP, CBCA ####[facility] ([id number])[address] [place] [address] 20611 Monocytes (Bld) [#/Vol] 0.3 10*3/uL Normal 0-0.9 [facility] Comment on above: Result Comment: Axle ected on 04/23 AT 1722: Previously reported as 0.4 Performed By: #### C MP, CBCA ####[facility] ([id number])[address] [place] [address] 05402 Monocytes/100 WBC (Bld) 11.0 % Normal [facility] Comment on above: Result Comment: Axel ected on 04/23 AT 1722: Previously reported as 14.7 Performed By: #### C MP, CBCA ####[facility] ([id number])[address] [place] [address] 27493 Neutrophils (Bld) [#/Vol] 1.7 10*3/uL Normal 1.5-6.6 [facility] Comment on above: Result Comment: Axel ected on 04/23 AT 1722: Previously reported as 0.0 Performed By: #### C MP, CBCA ####[facility] ([id number])[address] [place] [address] 99030 Platelet mean volume (Bld) [Entitic vol] 8.0 fL Normal 7-12 [facility] Comment on above: Performed By: #### C MP, CBCA ####[facility] ([id number])[address] [place] [address] 59712 Platelets (Bld) [#/Vol] 167 10*3/uL Normal 150-450 [facility] Comment on above: Performed By: #### C MP, CBCA ####[facility] ([id number])[address] [place] [address] 73616 POLYCHROMASIA 1+ Abnormal NONE [facility] Comment on above: Performed By: #### C MP, CBCA ####[facility] ([id number])[address] [place] [address] 46282 RBC COUNT 4.26 X10E12/L Normal 4.10-5.70 [facility] Comment on above: Performed By: #### C MP, CBCA ####[facility] ([id number])[address] [place] [address] 51814 SEG NEUTROPHIL 71.0 % Normal [facility] Comment on above: Result Comment: Axel ected on 04/23 AT 1722: Previously reported as 0.0 Performed By: #### C MP, CBCA ####[facility] ([id number])[address] [place] [address] 050[address] WBC (Bld) [#/Vol] 2.6 10*3/uL Low 4.0-11.0 [facility] Comment on above: Performed By: #### C MP, CBCA ####[facility] ([id number])[address] [place] [address] 63960 CBC auto differentialon Erythrocyte distribution width (RBC) [Ratio] 14.8 % 11.5 - 15.0 % [facility] Hematocrit (Bld) [Volume fraction] 36.3 % Low 39 - 49 % [facility] Hemoglobin (Bld) [Mass/Vol] 12.4 g/dL Low 13.0 - 17.0 g/dL [facility] Interpretation and review of laboratory results Abnormal [facility] MCH (RBC) [Entitic mass] 29 pg 27 - 34 pg [facility] MCHC (RBC) [Mass/Vol] 34.1 g/dL 32 - 36 g/dL [facility] MCV (RBC) [Entitic vol] 85 fL 80 - 100 fL [facility] Platelet mean volume (Bld) [Entitic vol] 8 fL 7 - 12 fL [facility] Platelets (Bld) [#/Vol] 167 10*3/uL [facility] RBC (Bld) [#/Vol] 4.26 10*6/uL [facility] WBC corrected for nucl RBC Auto (Bld) [#/Vol] 2.6 Low [facility] COMPREHENSIVE METABOLIC PANE Adam 04-23-2024 Albumin [Mass/Vol] 3.8 g/dL Normal 3.2-5.3 [facility] Comment on above: Performed By: #### C MP, CBCA ####[facility] ([id number])[address] [place] [address] [place] [address] ALP [Catalytic activity/Vol] 50 U/L Normal 39-130 [facility] Comment on above: Performed By: #### C RADHA, CBCA ####[facility] ([id number])[address] [place] [address] 17880 ALT [Catalytic activity/Vol] 26 U/L Normal 0-40 [facility] Comment on above: Performed By: #### C MP, CBCA ####[facility] ([id number])[address] [place] [address] [place] [address] Anion gap [Moles/Vol] 7 mmol/L Normal 5-15 [facility] Comment on above: Performed By: #### C MP, CBCA ####[facility] ([id number])[address] [place] [address] 48646 AST [Catalytic activity/Vol] 25 U/L Normal 0-41 [facility] Comment on above: Performed By: #### C MP, CBCA ####[facility] ([id number])[address] [place] [address] 61346 Bilirubin [Mass/Vol] 0.8 mg/dL Normal 0.3-1.2 [facility] Comment on above: Performed By: #### C MP, CBCA ####[facility] ([id number])[address], [place] [address] Calcium [Mass/Vol] 8.9 mg/dL Normal 8.5-10.5 [facility] Comment on above: Performed By: #### C RADHA, CBCA ####[facility] ([id number])[address] [place] [address], [place] [address] Chloride [Moles/Vol] 103 mmol/L Normal 98-109 [facility] Comment on above: Performed By: #### C RADHA, CBCA ####[facility] ([id number])[address] [place] [address]60 CO2 [Moles/Vol] 25 mmol/L Normal 22-32 [facility] Comment on above: Performed By: #### C RADHA, CBCA ####[facility] ([id number])[address] [place] [address] 97793 Creatinine [Mass/Vol] 0.89 mg/dL Normal 0.70-1.20 [facility] Comment on above: Result Comment: METH OD TRACEABLE TO IDMS STANDARD Performed By: #### C RADHA CBCA ####[facility] ([id number])[address] [place] [address], [place] [address] eGFR (CKD-EPI) NON-RACE DEPENDENT >90 Normal >59 [facility] Comment on above: Result Comment: Repo rted eGFR is based on theCKD-EPI 2020 equation that doesnot use a race coefficient. Performed By: #### C RADHA, CBCA ####[facility] ([id number])[address] [place] [address] [place] [address] Glucose [Mass/Vol] 100 mg/dL High 65-99 [facility] Comment on above: Performed By: #### C RADHA, CBCA ####[facility] ([id number])[address] [place] [address] [place] [address] Potassium [Moles/Vol] 4.2 mmol/L Normal 3.5-5.0 [facility] Comment on above: Performed By: #### C RADHA, CBCA ####[facility] ([id number])[address] [place] [address] 67923 Protein [Mass/Vol] 6.8 g/dL Normal 6.0-8.0 [facility] Comment on above: Performed By: #### C RADHA, CBCA ####[facility] ([id number])[address] [place] [address] 23524 Sodium [Moles/Vol] 135 mmol/L Normal 134-146 [facility] Comment on above: Performed By: #### C RADHA, CBCA ####[facility] ([id number])[address] [place] [address]37 Urea nitrogen [Mass/Vol] 8 mg/dL Normal 5-23 [facility] Comment on above: Performed By: #### C RADHA, CBCA ####[facility] ([id number])[address] [place] [address]50 Comprehensive metabolic pane adam 04-23-2024 Albumin [Mass/Vol] 3.8 g/dL 3.2 - 5.3 g/dL [facility] ALP [Catalytic activity/Vol] 50 U/L 39 - 130 U/L [facility] ALT No additional P-5'-P [Catalytic activity/Vol] 26 U/L 0 - 40 U/L [facility] Anion gap [Moles/Vol] 7 mmol/L 5 - 15 mmol/L [facility] AST [Catalytic activity/Vol] 25 U/L 0 - 41 U/L [facility] Bilirubin [Mass/Vol] 0.8 mg/dL 0.3 - 1.2 mg/dL [facility] Calcium [Mass/Vol] 8.9 mg/dL 8.5 - 10. 5 mg/dL [facility] Chloride [Moles/Vol] 103 mmol/L 98 - 109 mmol/L [facility] CO2 [Moles/Vol] 25 mmol/L 22 - 32 mmol/L [facility] Creatinine [Mass/Vol] 0.89 mg/dL 0.70 - 1.20 mg/dL [facility] Comment on above: METHOD TRACEABLE TO IDWV STANDARD eGFR (CKD-EPI)non-race dependent - PINF [facility] Comment on above: Reported eGFR is based on the CKD-EPI 2020 equation that does not use a race coefficient. Glucose [Mass/Vol] 100 mg/dL High 65 - 99 mg/dL [facility] Interpretation and review of laboratory results Abnormal [facility] Potassium [Moles/Vol] 4.2 mmol/L 3.5 - 5.0 mmol/L [facility] Protein [Mass/Vol] 6.8 g/dL 6.0 - 8.0 g/dL [facility] Sodium [Moles/Vol] 135 mmol/L 134 - 146 mmol/L [facility] Urea nitrogen [Mass/Vol] 8 mg/dL 5 - 23 mg/dL [facility] Office Visiton 04-17-2024 Follow-up visit [id number] Arvin Julien 1980 M Date Provider Department Center 04/17/2024 HARRISON JARA MIAH Rivera Family History Problem Relation Age of Onset No Known Problems Mother Heart disease Father Heart failure Father Heart failure Brother Heart disease Brother Family Status - Relation Status Age at Mother Father Brother Level of Service:09010 PA OFFICE/OUTPATIENT ESTABLISHED HIGH MDM 40 MIN Normal [facility] Office Visiton 04-11-2024 Follow-up visit [id number] Arvin Julien 1980 M Date Provider Department Center 04/11/2024 [id number] ACUÑA Family History Problem Relation Age of Onset No Known Problems Mother Heart disease Father Heart failure Father Heart failure Brother Heart disease Brother Family Status - Relation Status Age at Mother Father Brother Level of Service:26748 [place] POSTOP FOLLOW UP VISIT RELATED TO ORIGINAL PX Normal [facility] CBC AND AUTO DIFFon 04-09-19 ABSOLUTE BASOPHIL 0.0 X10E9/L Normal 0.0-0.2 [facility] Comment on above: Performed By: #### C BCA, CMP ####[facility] ([id number])[address] [place] [address] [place] [address] ABSOLUTE NEUTROPHIL 1.4 X10E9/L Low 1.5-6.6 [facility] Comment on above: Performed By: #### C SPENCER, CMP ####[facility] ([id number])[address] [place] [address] 46710 Basophils/100 WBC (Bld) 0.7 % Normal [facility] Comment on above: Performed By: #### C SPENCER, CMP ####[facility] ([id number])[address] [place] [address] 82702 Eosinophils (Bld) [#/Vol] 0.0 10*3/uL Normal 0.0-0.4 [facility] Comment on above: Performed By: #### C SPENCER, CMP ####[facility] ([id number])[address] [place] [address] 89688 Eosinophils/100 WBC (Bld) 1.0 % Normal [facility] Comment on above: Performed By: #### C SPENCER, CMP ####[facility] ([id number])[address] [place] [address] [place] [address] Erythrocyte distribution width (RBC) [Ratio] 14.6 % Normal 11.5-15.0 [facility] Comment on above: Performed By: #### C SPENCER, CMP ####[facility] ([id number])[address] [place] [address] [place] [address] Hematocrit (Bld) [Volume fraction] 38.1 % Low 39-49 [facility] Comment on above: Performed By: #### C BCA, CMP ####[facility] ([id number])[address] [place] [address] [place] [address] Hemoglobin (Bld) [Mass/Vol] 13.0 g/dL Normal 13.0-17.0 [facility] Comment on above: Performed By: #### C BCA, CMP ####[facility] ([id number])[address] [place] [address] 51445 Lymphocytes (Bld) [#/Vol] 0.5 10*3/uL Low 1.0-3.5 [facility] Comment on above: Performed By: #### C SPENCER, CMP ####[facility] ([id number])[address] [place] [address] 47327 Lymphocytes/100 WBC (Bld) 19.0 % Normal [facility] Comment on above: Performed By: #### C SPENCER, CMP ####[facility] ([id number])[address] [place] [address] 13891 MCH (RBC) [Entitic mass] 29.3 pg Normal 27-34 [facility] Comment on above: Performed By: #### C SPENCER, CMP ####[facility] ([id number])[address] [place] [address] 17340 MCHC (RBC) [Mass/Vol] 34.0 g/dL Normal 32-36 [facility] Comment on above: Performed By: #### C SPENCER, CMP ####[facility] ([id number])[address] [place] [address] 02728 MCV (RBC) [Entitic vol] 86 fL Normal 80-100 [facility] Comment on above: Performed By: #### C BCA, CMP ####[facility] ([id number])[address] [place] [address] 91918 Monocytes (Bld) [#/Vol] 0.6 10*3/uL Normal 0-0.9 [facility] Comment on above: Performed By: #### C BCA, CMP ####[facility] ([id number])[address] [place] [address] 18246 Monocytes/100 WBC (Bld) 24.9 % Normal [facility] Comment on above: Performed By: #### C BCA, CMP ####[facility] ([id number])[address] [place] [address] 80532 Neutrophils/100 WBC (Bld) 54.4 % Normal [facility] Comment on above: Performed By: #### C BCA, CMP ####[facility] ([id number])[address] [place] [address] 58385 Platelet mean volume (Bld) [Entitic vol] 7.7 fL Normal 7-12 [facility] Comment on above: Performed By: #### C SPENCER, CMP ####[facility] ([id number])[address] [place] [address] 47428 Platelets (Bld) [#/Vol] 235 10*3/uL Normal 150-450 [facility] Comment on above: Performed By: #### C BCA, CMP ####[facility] ([id number])[address] [place] [address] 33823 RBC COUNT 4.43 X10E12/L Normal 4.10-5.70 [facility] Comment on above: Performed By: #### C BCA, CMP ####[facility] ([id number])[address] [place] [address] 79199 RBC morphology finding Nom (Bld) NORMAL Normal [facility] Comment on above: Performed By: #### C BCA, CMP ####[facility] ([id number])[address] [place] [address] 31892 WBC (Bld) [#/Vol] 2.6 10*3/uL Low 4.0-11.0 [facility] Comment on above: Performed By: #### C BCA, CMP ####[facility] ([id number])[address] [place] [address], [place] [address] CBC auto differentialon 03-24 Basophils (Bld) [#/Vol] 0 10*3/uL [facility] Basophils/100 WBC (Bld) 0.7 % [facility] Eosinophils (Bld) [#/Vol] 0 10*3/uL [facility] Eosinophils/100 WBC (Bld) 1 % [facility] Erythrocyte distribution width (RBC) [Ratio] 14.6 % 11.5 - 15.0 % [facility] Hematocrit (Bld) [Volume fraction] 38.1 % Low 39 - 49 % [facility] Hemoglobin (Bld) [Mass/Vol] 13 g/dL 13.0 - 17.0 g/dL [facility] Interpretation and review of laboratory results Abnormal [facility] Lymphocytes (Bld) [#/Vol] 0.5 10*3/uL Low [facility] Lymphocytes/100 WBC (Bld) 19 % [facility] MCH (RBC) [Entitic mass] 29.3 pg 27 - 34 pg [facility] MCHC (RBC) [Mass/Vol] 34 g/dL 32 - 36 g/dL [facility] MCV (RBC) [Entitic vol] 86 fL 80 - 100 fL [facility] Monocytes (Bld) [#/Vol] 0.6 10*3/uL [facility] Monocytes/100 WBC (Bld) 24.9 % [facility] Neutrophils (Bld) [#/Vol] 1.4 10*3/uL Low [facility] Neutrophils/100 WBC (Bld) 54.4 % [facility] Platelet mean volume (Bld) [Entitic vol] 7.7 fL 7 - 12 fL [facility] Platelets (Bld) [#/Vol] 235 10*3/uL [facility] Polymorphonuclear cells/100 WBC (Bld) NORMAL [facility] RBC (Bld) [#/Vol] 4.43 10*6/uL [facility] WBC corrected for nucl RBC Auto (Bld) [#/Vol] 2.6 Low [facility] COMPREHENSIVE METABOLIC PANE Adam 04-09-2024 Albumin [Mass/Vol] 3.8 g/dL Normal 3.2-5.3 [facility] Comment on above: Performed By: #### C BCA, CMP ####[facility] ([id number])[address] [place] [address] [place] [address] ALP [Catalytic activity/Vol] 47 U/L Normal 39-130 [facility] Comment on above: Performed By: #### C BCA, CMP ####[facility] ([id number])[address] [place] [address] [place] [address] ALT [Catalytic activity/Vol] 21 U/L Normal 0-40 [facility] Comment on above: Performed By: #### C BCA, CMP ####[facility] ([id number])[address] [place] [address] [place] [address] Anion gap [Moles/Vol] 8 mmol/L Normal 5-15 [facility] Comment on above: Performed By: #### C BCA, CMP ####[facility] ([id number])[address] [place] [address] [place] [address] AST [Catalytic activity/Vol] 20 U/L Normal 0-41 [facility] Comment on above: Performed By: #### C BCA, CMP ####[facility] ([id number])[address] [place] [address] [place] [address] Bilirubin [Mass/Vol] 0.9 mg/dL Normal 0.3-1.2 [facility] Comment on above: Performed By: #### C BCA, CMP ####[facility] ([id number])[address] [place] [address] [place] [address] Calcium [Mass/Vol] 9.1 mg/dL Normal 8.5-10.5 [facility] Comment on above: Performed By: #### C BCA, CMP ####[facility] ([id number])[address] [place] [address] [place] [address] Chloride [Moles/Vol] 104 mmol/L Normal 98-109 [facility] Comment on above: Performed By: #### C BCA, CMP ####[facility] ([id number])[address] [place] [address] 14926 CO2 [Moles/Vol] 24 mmol/L Normal 22-32 [facility] Comment on above: Performed By: #### C BCA, CMP ####[facility] ([id number])[address] [place] [address] 43678 Creatinine [Mass/Vol] 1.05 mg/dL Normal 0.70-1.20 [facility] Comment on above: Result Comment: METH OD TRACEABLE TO IDMS STANDARD Performed By: #### C BCA, CMP ####[facility] ([id number])[address] [place] [address] 20546 GFR/1.73 sq M.predicted among non-blacks MDRD (S/P/Bld) [Vol rate/Area] 89 mL/min/{1.73_m2} Normal >59 [facility] Comment on above: Result Comment: Repo rted eGFR is based on theCKD-EPI 2020 equation that doesnot use a race coefficient. Performed By: #### C BCA, CMP ####[facility] ([id number])[address] [place] [address] 79955 Glucose [Mass/Vol] 96 mg/dL Normal 65-99 [facility] Comment on above: Performed By: #### C BCA, CMP ####[facility] ([id number])[address] [place] [address] 18609 Potassium [Moles/Vol] 4.1 mmol/L Normal 3.5-5.0 [facility] Comment on above: Performed By: #### C BCA, CMP ####[facility] ([id number])[address] [place] [address] 32005 Protein [Mass/Vol] 7.1 g/dL Normal 6.0-8.0 [facility] Comment on above: Performed By: #### C BCA, CMP ####[facility] ([id number])[address] [place] [address] 86031 Sodium [Moles/Vol] 136 mmol/L Normal 134-146 [facility] Comment on above: Performed By: #### C BCA, CMP ####[facility] ([id number])[address] [place] [address] 72548 Urea nitrogen [Mass/Vol] 8 mg/dL Normal 5-23 [facility] Comment on above: Performed By: #### C BCA, CMP ####[facility] ([id number])[address] [place] [address] 48356 Comprehensive metabolic pane adam 04-09-2024 Albumin [Mass/Vol] 3.8 g/dL 3.2 - 5.3 g/dL [facility] ALP [Catalytic activity/Vol] 47 U/L 39 - 130 U/L [facility] ALT No additional P-5'-P [Catalytic activity/Vol] 21 U/L 0 - 40 U/L [facility] Anion gap [Moles/Vol] 8 mmol/L 5 - 15 mmol/L [facility] AST [Catalytic activity/Vol] 20 U/L 0 - 41 U/L [facility] Bilirubin [Mass/Vol] 0.9 mg/dL 0.3 - 1.2 mg/dL [facility] Calcium [Mass/Vol] 9.1 mg/dL 8.5 - 10. 5 mg/dL [facility] Chloride [Moles/Vol] 104 mmol/L 98 - 109 mmol/L [facility] CO2 [Moles/Vol] 24 mmol/L 22 - 32 mmol/L [facility] Creatinine [Mass/Vol] 1.05 mg/dL 0.70 - 1.20 mg/dL [facility] Comment on above: METHOD TRACEABLE TO IDMS STANDARD eGFR (CKD-EPI)non-race dependent 89 - PINF [facility] Comment on above: Reported eGFR is based on the CKD-EPI 2020 equation that does not use a race coefficient. Glucose [Mass/Vol] 96 mg/dL 65 - 99 mg/dL [facility] Potassium [Moles/Vol] 4.1 mmol/L 3.5 - 5.0 mmol/L [facility] Protein [Mass/Vol] 7.1 g/dL 6.0 - 8.0 g/dL [facility] Sodium [Moles/Vol] 136 mmol/L 134 - 146 mmol/L [facility] Urea nitrogen [Mass/Vol] 8 mg/dL 5 - 23 mg/dL [facility] CBC AND AUTO DIFFon 03-26-19 25 ABSOLUTE BASOPHIL 0.1 X10E9/L Normal 0.0-0.2 [facility] Comment on above: Performed By: #### C BCA ####[facility] ([id number])[address] [place] [address] 26786 ABSOLUTE NEUTROPHIL 3.9 X10E9/L Normal 1.5-6.6 [facility] Comment on above: Performed By: #### C BCA ####[facility] ([id number])[address] [place] [address] 61669 Basophils/100 WBC (Bld) 1.0 % Normal [facility] Comment on above: Performed By: #### C BCA ####[facility] ([id number])[address] [place] [address] 46348 Eosinophils (Bld) [#/Vol] 0.1 10*3/uL Normal 0.0-0.4 [facility] Comment on above: Performed By: #### C BCA ####[facility] ([id number])[address] [place] [address] 72648 Eosinophils/100 WBC (Bld) 2.1 % Normal [facility] Comment on above: Performed By: #### C BCA ####[facility] ([id number])[address] [place] [address] [place] [address] Erythrocyte distribution width (RBC) [Ratio] 14.7 % Normal 11.5-15.0 [facility] Comment on above: Performed By: #### C BCA ####[facility] ([id number])[address] [place] [address] 28771 Hematocrit (Bld) [Volume fraction] 39.9 % Normal 39-49 [facility] Comment on above: Performed By: #### C BCA ####[facility] ([id number])[address] [place] [address] 48750 Hemoglobin (Bld) [Mass/Vol] 13.6 g/dL Normal 13.0-17.0 [facility] Comment on above: Performed By: #### C BCA ####[facility] ([id number])[address] [place] [address] 79676 Lymphocytes (Bld) [#/Vol] 1.0 10*3/uL Normal 1.0-3.5 [facility] Comment on above: Performed By: #### C BCA ####[facility] ([id number])[address] [place] [address] 34613 Lymphocytes/100 WBC (Bld) 17.8 % Normal [facility] Comment on above: Performed By: #### C BCA ####[facility] ([id number])[address] [place] [address] 02029 MCH (RBC) [Entitic mass] 29.6 pg Normal 27-34 [facility] Comment on above: Performed By: #### C BCA ####[facility] ([id number])[address] [place] [address] 63871 MCHC (RBC) [Mass/Vol] 34.3 g/dL Normal 32-36 [facility] Comment on above: Performed By: #### C BCA ####[facility] ([id number])[address] [place] [address] 78984 MCV (RBC) [Entitic vol] 87 fL Normal 80-100 [facility] Comment on above: Performed By: #### C BCA ####[facility] ([id number])[address] [place] [address] 23324 Monocytes (Bld) [#/Vol] 0.5 10*3/uL Normal 0-0.9 [facility] Comment on above: Performed By: #### C BCA ####[facility] ([id number])[address] [place] [address] 61987 Monocytes/100 WBC (Bld) 9.0 % Normal [facility] Comment on above: Performed By: #### C BCA ####[facility] ([id number])[address] [place] [address] 78405 Neutrophils/100 WBC (Bld) 70.1 % Normal [facility] Comment on above: Performed By: #### C BCA ####[facility] ([id number])[address] [place] [address] 50963 Platelet mean volume (Bld) [Entitic vol] 8.6 fL Normal 7-12 [facility] Comment on above: Performed By: #### C BCA ####[facility] ([id number])[address] [place] [address] 58319 Platelets (Bld) [#/Vol] 186 10*3/uL Normal 150-450 [facility] Comment on above: Performed By: #### C BCA ####[facility] ([id number])[address] [place] [address] 43118 RBC COUNT 4.61 X10E12/L Normal 4.10-5.70 [facility] Comment on above: Performed By: #### C BCA ####[facility] ([id number])[address] [place] [address], [place] [address] WBC (Bld) [#/Vol] 5.6 10*3/uL Normal 4.0-11.0 [facility] Comment on above: Performed By: #### C BCA ####[facility] ([id number])[address] [place] [address] [place] [address] COMPREHENSIVE METABOLIC PANE Adam 03-26-2024 Albumin [Mass/Vol] 4.0 g/dL Normal 3.2-5.3 [facility] Comment on above: Performed By: #### C MP ####[facility] ([id number])[address] [place] [address] 83746 ALP [Catalytic activity/Vol] 46 U/L Normal 39-130 [facility] Comment on above: Performed By: #### C MP ####[facility] ([id number])[address] [place] [address] [place] [address] ALT [Catalytic activity/Vol] 19 U/L Normal 0-40 [facility] Comment on above: Performed By: #### C MP ####[facility] ([id number])[address] [place] [address] [place] [address] Anion gap [Moles/Vol] 9 mmol/L Normal 5-15 [facility] Comment on above: Performed By: #### C MP ####[facility] ([id number])[address] [place] [address] [place] [address] AST [Catalytic activity/Vol] 19 U/L Normal 0-41 [facility] Comment on above: Performed By: #### C MP ####[facility] ([id number])[address] [place] [address] [place] [address] Bilirubin [Mass/Vol] 0.9 mg/dL Normal 0.3-1.2 [facility] Comment on above: Performed By: #### C MP ####[facility] ([id number])[address] [place] [address], [place] [address] Calcium [Mass/Vol] 9.2 mg/dL Normal 8.5-10.5 [facility] Comment on above: Performed By: #### C MP ####[facility] ([id number])[address] [place] [address], [place] [address] Chloride [Moles/Vol] 102 mmol/L Normal 98-109 [facility] Comment on above: Performed By: #### C MP ####[facility] ([id number])[address] [place] [address] [place] [address] CO2 [Moles/Vol] 25 mmol/L Normal 22-32 [facility] Comment on above: Performed By: #### C MP ####[facility] ([id number])[address] [place] [address] [place] [address] Creatinine [Mass/Vol] 0.90 mg/dL Normal 0.70-1.20 [facility] Comment on above: Result Comment: METH OD TRACEABLE TO IDMS STANDARD Performed By: #### C MP ####[facility] ([id number])[address] [place] [address] [place] [address] eGFR (CKD-EPI) NON-RACE DEPENDENT >90 Normal >59 [facility] Comment on above: Result Comment: Repo rted eGFR is based on theCKD-EPI 2020 equation that doesnot use a race coefficient. Performed By: #### C MP ####[facility] ([id number])[address] [place] [address], [place] [address] Glucose [Mass/Vol] 94 mg/dL Normal 65-99 [facility] Comment on above: Performed By: #### C MP ####[facility] ([id number])[address] [place] [address], [place] [address] Potassium [Moles/Vol] 4.1 mmol/L Normal 3.5-5.0 [facility] Comment on above: Performed By: #### C MP ####[facility] ([id number])[address] [place] [address] 02295 Protein [Mass/Vol] 7.2 g/dL Normal 6.0-8.0 [facility] Comment on above: Performed By: #### C MP ####[facility] ([id number])[address] [place] [address] 20695 Sodium [Moles/Vol] 136 mmol/L Normal 134-146 [facility] Comment on above: Performed By: #### C MP ####[facility] ([id number])[address] [place] [address] 19821 Urea nitrogen [Mass/Vol] 9 mg/dL Normal 5-23 [facility] Comment on above: Performed By: #### C MP ####[facility] ([id number])[address] [place] [address] 50192 Orders Onlyon 03-26-2024 Orders Only [id number] Arvin Julien 1980 M Date Provider Department Center 03/26/2024 [facility] Family History Problem Relation Age of Onset No Known Problems Mother Heart disease Father Heart failure Father Heart failure Brother Heart disease Brother Family Status - Relation Status Age at Mother Father Brother [facility] 36on 03-21-2024 36 Noted - doxycycline can cause some nausea/upset stomach [facility] 34 Mom called back and I talked with her. She stated he Pt had some nausea and vomiting yesterday and was wondering in the medication could cause this. I let her know that sometimes it can if taken on an empty stomach, she wasn't sure if he had eaten anything or not but will make sure he tries to eat something when taking medication and will let us know if this improves. [facility] 34 ----- Message from DIANE Lang sent at 03/20/2024 1:39 PM EST ----- RECOMMENDATIONS: 1. No lifting heavy weights x 1week 2. F/u in device clinic 1 week from discharge or sooner for any concerns. 3. Doxycycline 100mg bid x 2 weeks. Normal [facility] HPon 03-14-2024 [facility] Electrophysiology Consult Note [place] [facility] Reason for visit: afib HPI: Arvin Julien is a 44 y.o. year old with past medical history of paroxsymal atrial fibrillation s/p cardioversion in the past and most recently while at [facility] [place] in October 2023 when hospitalized for pneumonia, stage IV lung cancer undergoing chemoradiation, heart failure, here to discuss afib management per Dr. Schafer. Says he hasn't been out of afib for months. Patient was cardioverted on 12/09/23 and was seen back outpatient back in atrial fibrillation. Patient is very symptomatic with afib, feels dizzy/lightheaded and is fatigued. Dr. Schafer reduced spironolactone to 25mg at last visit in Nov 2023. Denies chest pain. Gets palpitations and epistaxis sometimes . PMH: Past Medical History: Diagnosis Date Abnormal ECG Anxiety Arrhythmia Atrial fibrillation (CMS/HCC) Cancer (CMS/HCC) Drug abuse (CMS/HCC) GERD (gastroesophageal reflux disease) Hypertension Irregular heart beat Pulmonary mass Shortness of breath Sleep apnea USES C-PAP PSH: Past Surgical History: Procedure Laterality Date CARDIOVERSION CARPAL TUNNEL RELEASE Bilateral 2020 TONSILLECTOMY UVULOPALATOPHARYNGOPLASTY 01/2017 SH: Social Determinants of Health Tobacco Use: Medium Risk (03/09/2024) Received from [facility] Patient History Smoking Tobacco Use: Former Smokeless Tobacco Use: Never Passive Exposure: Not on file Alcohol Use: Not At Risk (11/30/2023) AUDIT-C Frequency of Alcohol Consumption: Never Average Number of Drinks: Patient does not drink Frequency of Binge Drinking: Never Financial Resource Strain: Low Risk (11/30/2023) Overall Financial Resource Strain (CARDIA) Difficulty of Paying Living Expenses: Not hard at all Recent Concern: Financial Resource Strain - High Risk (09/09/2023) [facility] Overall Financial Resource Strain (CARDIA) Difficulty of Paying Living Expenses: Hard Food Insecurity: No Food Insecurity (11/30/2023) Hunger Vital Sign Worried About Running Out of Food in the Last Year: Never true Ran Out of Food in the Last Year: Not on file Recent Concern: Food Insecurity - Food Insecurity Present (09/09/2023) Received from [facility] Hunger Screening Within the past 12 months we worried whether our food would run out before we got money to buy more.: Often True Within the past 12 months the food we bought just didn't last and we didn't have money to get more.: Often True Transportation Needs: No Transportation Needs (11/30/2023) Transportation Lack of Transportation (Medical): No Lack of Transportation (Non-Medical): Not on file Physical Activity: Insufficiently Active (11/30/2023) Exercise Vital Sign Days of Exercise per Week: 3 days Minutes of Exercise per Session: 30 min Stress: Not on file Social Connections: Not on file Intimate Partner Violence: Unknown (11/30/2023) Humiliation, Afraid, Rape, and Kick questionnaire Fear of Current or Ex-Partner: No Emotionally Abused: Not on file Physically Abused: Not on file Sexually Abused: Not on file Depression: Not at risk (11/30/2023) PHQ-2 PHQ-2 Score: 0 Housing Stability: Low Risk (11/30/2023) Housing Stability Vital Sign Unable to Pay for Housing in the Last Year: Not on file Number of Places Lived in the Last Year: Not on file Unstable Housing in the Last Year: No Utilities: Not At Risk (11/30/2023) [facility] Utilities Threatened with loss of utilities: No Health Literacy: Not on file Allergies: Allergies Allergen Reactions Celecoxib GI intolerance and Hives Other reaction(s): GI Distress, Hives Weight: 129kg Visit Vitals BP (!) 141/94 Pulse 63 Resp 16 SpO2 97% Smoking Status Former Meds: No current facility-administered medications on file prior to encounter. Current Outpatient Medications on File Prior to Encounter Medication Sig Dispense Refill amiodarone (Pacerone) 200 mg tablet Take 1 tablet (200 mg) by mouth once daily as directed. 90 tablet 3 apixaban (Eliquis) 5 mg tablet Take 1 tablet (5 mg) by mouth two times daily. 180 tablet 3 buprenorphine-naloxone (Suboxone) 8-2 mg SL film dissolve 1 FILM under the tongue twice a day dapagliflozin propanediol (Farxiga) 10 mg Take 1 tablet (10 mg) by mouth once daily as directed. 90 tablet 3 LORazepam (Ativan) 0.5 mg tablet Take 1 mg by mouth every 12 (twelve) hours if needed for anxiety. losartan (Cozaar) 25 mg tablet Take 1 tablet (25 mg) by mouth once daily as directed. 90 tablet 3 metoprolol succinate XL (Toprol-XL) 100 mg 24 hr tablet Take 1 tablet (100 mg) by mouth once daily in the morning. Take 100 mg in the morning and 50 mg in the evening 90 tablet 3 metoprolol succinate XL (Toprol-XL) 50 mg 24 hr tablet Take 1 tablet (50 mg) by mouth once daily in the evening. Do not crush or chew. Take 100 mg in the morning (more content not included)... [facility] NURSNOTEon 03-14-2024 NURSNOTE RN educated pt on d/ c instructions. This included: site care, limited physical activity, resume normal diet, future appointments, medications, and moderate sedation instructions. RN educated pt on when to notify physician and when to go to the hospital. RN encouraged pt to voice any questions or concerns, and answered any questions or concerns if pt verbalized. Pt was wheeled off of unit with all of belongings. [facility] NURSNOTE Pt ambulated to bath room and back without incident. Right femoral site clean, dry and intact. [facility] NURSNOTE CHG wipes and betadi ne nasal swabs completed. [facility] DAILY RADIATION TREATMENTon 02-28-2024 Course Id C1 [facility] Course Start Date 01/30/2024 [facility] Dose Given To Date [address] System Elapsed Days 22 [facility] First Treatment Date 02/06/2024 [facility] Fractions Prescribed 15 [facility] Last Treatment Date 02/28/2024 [facility] Plan Fractions Treated 15 [facility] Plan ID Rt LungMed 3D [facility] Plan Name Rt Lung Mediastinum; 3D ap pa arc [facility] Plan Total Prescribed Dose 4500 [facility] System Prescribed Dose per Fraction 300 [facility] Reference Point Id Rx rt lung media [facility] Session Dose Given 300 [facility] CBC AND AUTO DIFFon 02-26-19 25 ABSOLUTE BASOPHIL 0.0 X10E9/L Normal 0.0-0.2 [facility] Comment on above: Performed By: #### C SPENCER, CMP ####[facility] ([id number])[address] [place] [address] 71000 ABSOLUTE NEUTROPHIL 4.3 X10E9/L Normal 1.5-6.6 [facility] Comment on above: Performed By: #### C SPENCER, CMP ####[facility] ([id number])[address] [place] [address] 04946 Basophils/100 WBC (Bld) 0.5 % Normal [facility] Comment on above: Performed By: #### C SPENCER, CMP ####[facility] ([id number])[address] [place] [address] 53933 Eosinophils (Bld) [#/Vol] 0.1 10*3/uL Normal 0.0-0.4 [facility] Comment on above: Performed By: #### C SPENCER, CMP ####[facility] ([id number])[address] [place] [address] 49708 Eosinophils/100 WBC (Bld) 1.3 % Normal [facility] Comment on above: Performed By: #### C SPENCER, CMP ####[facility] ([id number])[address] [place] [address] 41007 Erythrocyte distribution width (RBC) [Ratio] 15.0 % Normal 11.5-15.0 [facility] Comment on above: Performed By: #### C SPENCER, CMP ####[facility] ([id number])[address], [place] [address] Hematocrit (Bld) [Volume fraction] 39.5 % Normal 39-49 [facility] Comment on above: Performed By: #### C BCA, CMP ####[facility] ([id number])[address] [place] [address] 16369 Hemoglobin (Bld) [Mass/Vol] 13.2 g/dL Normal 13.0-17.0 [facility] Comment on above: Performed By: #### C BCA, CMP ####[facility] ([id number])[address] [place] [address] 86689 Lymphocytes (Bld) [#/Vol] 0.5 10*3/uL Low 1.0-3.5 [facility] Comment on above: Performed By: #### C SPENCER, CMP ####[facility] ([id number])[address] [place] [address] 06808 Lymphocytes/100 WBC (Bld) 9.5 % Normal [facility] Comment on above: Performed By: #### C BCA, CMP ####[facility] ([id number])[address] [place] [address] 98023 MCH (RBC) [Entitic mass] 29.6 pg Normal 27-34 [facility] Comment on above: Performed By: #### C BCA, CMP ####[facility] ([id number])[address] [place] [address] 06016 MCHC (RBC) [Mass/Vol] 33.5 g/dL Normal 32-36 [facility] Comment on above: Performed By: #### C BCA, CMP ####[facility] ([id number])[address] [place] [address] 19635 MCV (RBC) [Entitic vol] 88 fL Normal 80-100 [facility] Comment on above: Performed By: #### C BCA, CMP ####[facility] ([id number])[address] [place] [address] [place] [address] Monocytes (Bld) [#/Vol] 0.6 10*3/uL Normal 0-0.9 [facility] Comment on above: Performed By: #### C BCA, CMP ####[facility] ([id number])[address] [place] [address] 85185 Monocytes/100 WBC (Bld) 10.0 % Normal [facility] Comment on above: Performed By: #### C BCA, CMP ####[facility] ([id number])[address] [place] [address] 41449 Neutrophils/100 WBC (Bld) 78.7 % Normal [facility] Comment on above: Performed By: #### C SPENCER, CMP ####[facility] ([id number])[address] [place] [address] 49240 Platelet mean volume (Bld) [Entitic vol] 8.1 fL Normal 7-12 [facility] Comment on above: Performed By: #### C SPENCER, CMP ####[facility] ([id number])[address] [place] [address] 78843 Platelets (Bld) [#/Vol] 209 10*3/uL Normal 150-450 [facility] Comment on above: Performed By: #### C BCA, CMP ####[facility] ([id number])[address] [place] [address] [place] [address] RBC COUNT 4.47 X10E12/L Normal 4.10-5.70 [facility] Comment on above: Performed By: #### C BCA, CMP ####[facility] ([id number])[address] [place] [address] 82039 WBC (Bld) [#/Vol] 5.5 10*3/uL Normal 4.0-11.0 [facility] Comment on above: Performed By: #### C BCA, CMP ####[facility] ([id number])[address] [place] [address], [place] [address] COMPREHENSIVE METABOLIC PANE Adam 02-27-2024 Albumin [Mass/Vol] 4.0 g/dL Normal 3.2-5.3 [facility] Comment on above: Performed By: #### C BCA, CMP ####[facility] ([id number])[address] [place] [address], [place] [address] ALP [Catalytic activity/Vol] 38 U/L Low 39-130 [facility] Comment on above: Performed By: #### C BCA, CMP ####[facility] ([id number])[address] [place] [address] [place] [address] ALT [Catalytic activity/Vol] 20 U/L Normal 0-40 [facility] Comment on above: Performed By: #### C BCA, CMP ####[facility] ([id number])[address] [place] [address] [place] [address] Anion gap [Moles/Vol] 6 mmol/L Normal 5-15 [facility] Comment on above: Performed By: #### C BCA, CMP ####[facility] ([id number])[address] [place] [address] [place] [address] AST [Catalytic activity/Vol] 19 U/L Normal 0-41 [facility] Comment on above: Performed By: #### C BCA, CMP ####[facility] ([id number])[address] [place] [address] [place] [address] Bilirubin [Mass/Vol] 0.5 mg/dL Normal 0.3-1.2 [facility] Comment on above: Performed By: #### C BCA, CMP ####[facility] ([id number])[address] [place] [address] [place] [address] Calcium [Mass/Vol] 9.4 mg/dL Normal 8.5-10.5 [facility] Comment on above: Performed By: #### C BCA, CMP ####[facility] ([id number])[address] [place] [address] [place] [address] Chloride [Moles/Vol] 105 mmol/L Normal 98-109 [facility] Comment on above: Performed By: #### C BCA, CMP ####[facility] ([id number])[address] [place] [address] [place] [address] CO2 [Moles/Vol] 25 mmol/L Normal 22-32 [facility] Comment on above: Performed By: #### C BCA, CMP ####[facility] ([id number])[address] [place] [address] 90416 Creatinine [Mass/Vol] 0.92 mg/dL Normal 0.70-1.20 [facility] Comment on above: Result Comment: METH OD TRACEABLE TO IDMS STANDARD Performed By: #### C BCA, CMP ####[facility] ([id number])[address] [place] [address] [place] [address] eGFR (CKD-EPI) NON-RACE DEPENDENT >90 Normal >59 [facility] Comment on above: Result Comment: Repo rted eGFR is based on theCKD-EPI 2020 equation that doesnot use a race coefficient. Performed By: #### C BCA, CMP ####[facility] ([id number])[address] [place] [address], [place] [address] Glucose [Mass/Vol] 96 mg/dL Normal 65-99 [facility] Comment on above: Performed By: #### C BCA, CMP ####[facility] ([id number])[address] [place] [address] [place] [address] Potassium [Moles/Vol] 4.4 mmol/L Normal 3.5-5.0 [facility] Comment on above: Performed By: #### C BCA, CMP ####[facility] ([id number])[address] [place] [address] 11811 Protein [Mass/Vol] 7.5 g/dL Normal 6.0-8.0 [facility] Comment on above: Performed By: #### C BCA, CMP ####[facility] ([id number])[address] [place] [address] 92042 Sodium [Moles/Vol] 136 mmol/L Normal 134-146 [facility] Comment on above: Performed By: #### C BCA, CMP ####[facility] ([id number])[address] [place] [address] 91178 Urea nitrogen [Mass/Vol] 14 mg/dL Normal 5-23 [facility] Comment on above: Performed By: #### C BCA, CMP ####[facility] ([id number])[address] [place] [address] 31713 DAILY RADIATION TREATMENTon 02-21-2024 Course Id C1 [facility] Course Start Date 01/30/2024 [facility] Dose Given To Date [facility] Elapsed Days [address] [facility] First Treatment Date 02/06/2024 [facility] Fractions Prescribed [facility] Last Treatment Date 02/21/[address] [facility] [address] [facility] Plan Fractions Treated 11 [facility] Plan ID Rt LungMed 3D [facility] Plan Name Rt Lung Mediastinum; 3D ap pa arc [facility] Plan Total Prescribed Dose 4500 [facility] Prescribed Dose per Fraction 300 [facility] Reference Point Id Rx rt lung media [facility] Session Dose Given 300 [facility] Office Visiton 02-07-2024 Follow-up visit [id number] Arvin Julien 1980 M Date Provider Department Center 02/07/2024 [facility] Family History Problem Relation Age of Onset No Known Problems Mother Heart disease Father Heart failure Father Heart failure Brother Heart disease Brother Family Status - Relation Status Age at Mother Father Brother Level of Service:13029 PA OFFICE/OUTPATIENT NEW MODERATE MDM 45 MINUTES Normal [facility] MR BRAIN W WO CONTon 024 MR BRAIN W WO CONT Normal [facility] PET CT SKULL TO THIGHon 12-[address] SKULL TO THIGH Normal [facility] CBC AND AUTO DIFFon 01-09-20 24 Eosinophils (Bld) [#/Vol] 0.0 10*3/uL Normal 0.0-0.4 [facility] Comment on above: Performed By: #### C BCA, CMP ####[facility] ([id number])[address] [place] [address] 45151 Eosinophils/100 WBC (Bld) 1.0 % Normal [facility] Comment on above: Performed By: #### C SPENCER, CMP ####[facility] ([id number])[address] [place] [address] 15409 Erythrocyte distribution width (RBC) [Ratio] 17.1 % High 11.5-15.0 [facility] Comment on above: Performed By: #### C SPENCER, CMP ####[facility] ([id number])[address] [place] [address] 18777 Hematocrit (Bld) [Volume fraction] 37.2 % Low 39-49 [facility] Comment on above: Performed By: #### C SPENCER, CMP ####[facility] ([id number])[address] [place] [address] 14731 Hemoglobin (Bld) [Mass/Vol] 12.5 g/dL Low 13.0-17.0 [facility] Comment on above: Performed By: #### C BCA, CMP ####[facility] ([id number])[address] [place] [address] 46716 Lymphocytes (Bld) [#/Vol] 1.3 10*3/uL Normal 1.0-3.5 [facility] Comment on above: Performed By: #### C BCA, CMP ####[facility] ([id number])[address] [place] [address] 70185 Lymphocytes/100 WBC (Bld) 41.0 % Normal [facility] Comment on above: Performed By: #### C SPENCER, CMP ####[facility] ([id number])[address] [place] [address] 68870 MCH (RBC) [Entitic mass] 30.3 pg Normal 27-34 [facility] Comment on above: Performed By: #### C SPENCER, CMP ####[facility] ([id number])[address] [place] [address] 81323 MCHC (RBC) [Mass/Vol] 33.6 g/dL Normal 32-36 [facility] Comment on above: Performed By: #### C SPENCER, CMP ####[facility] ([id number])[address] [place] [address] 14371 MCV (RBC) [Entitic vol] 90 fL Normal 80-100 [facility] Comment on above: Performed By: #### C SPENCER, CMP ####[facility] ([id number])[address] [place] [address] 90929 Monocytes (Bld) [#/Vol] 0.3 10*3/uL Normal 0-0.9 [facility] Comment on above: Performed By: #### C SPENCER, CMP ####[facility] ([id number])[address] [place] [address] 64543 Monocytes/100 WBC (Bld) 9.0 % Normal [facility] Comment on above: Performed By: #### C SPENCER, CMP ####[facility] ([id number])[address] [place] [address] 93930 Neutrophils (Bld) [#/Vol] 1.5 10*3/uL Normal 1.5-6.6 [facility] Comment on above: Performed By: #### C SPENCER, CMP ####[facility] ([id number])[address] [place] [address] 27855 Platelet mean volume (Bld) [Entitic vol] 7.9 fL Normal 7-12 [facility] Comment on above: Performed By: #### C SPENCER, CMP ####[facility] ([id number])[address] [place] [address] 43801 Platelets (Bld) [#/Vol] 215 10*3/uL Normal 150-450 [facility] Comment on above: Performed By: #### Brock PALMER, CMP ####[facility] ([id number])[address] [place] [address] 58471 RBC COUNT 4.13 X10E12/L Normal 4.10-5.70 [facility] Comment on above: Performed By: #### Brock PALMER, CMP ####[facility] ([id number])[address] [place] [address] 66443 RBC morphology finding Nom (Bld) NORMAL Normal [facility] Comment on above: Performed By: #### Brock PALMER, CMP ####[facility] ([id number])[address] [place] [address] 72416 SEG NEUTROPHIL 49.0 % Normal [facility] Comment on above: Performed By: #### Brock PALMER, CMP ####[facility] ([id number])[address] [place] [address] [place] [address] WBC (Bld) [#/Vol] 3.1 10*3/uL Low 4.0-11.0 [facility] Comment on above: Performed By: #### Brock PALMER, CMP ####[facility] ([id number])[address] [place] [address] 77074 CBC auto differentialon 12-22 Eosinophils (Bld) [#/Vol] 0 10*3/uL [facility] Eosinophils/100 WBC (Bld) 1 % [facility] Erythrocyte distribution width (RBC) [Ratio] 17.1 % High 11.5 - 15.0 % [facility] Hematocrit (Bld) [Volume fraction] 37.2 % Low 39 - 49 % [facility] Hemoglobin (Bld) [Mass/Vol] 12.5 g/dL Low 13.0 - 17.0 g/dL [facility] Interpretation and review of laboratory results Abnormal [facility] Lymphocytes (Bld) [#/Vol] 1.3 10*3/uL [facility] Lymphocytes/100 WBC (Bld) 41 % [facility] MCH (RBC) [Entitic mass] 30.3 pg 27 - 34 pg [facility] MCHC (RBC) [Mass/Vol] 33.6 g/dL 32 - 36 g/dL [facility] MCV (RBC) [Entitic vol] 90 fL 80 - 100 fL [facility] Monocytes (Bld) [#/Vol] 0.3 10*3/uL [facility] Monocytes/100 WBC (Bld) 9 % [facility] Neutrophils (Bld) [#/Vol] 1.5 10*3/uL [facility] Platelet mean volume (Bld) [Entitic vol] 7.9 fL 7 - 12 fL [facility] Platelets (Bld) [#/Vol] 215 10*3/uL [facility] Polymorphonuclear cells/100 WBC (Bld) NORMAL [facility] RBC (Bld) [#/Vol] 4.13 10*6/uL [facility] Segmented neutrophils/100 WBC (Bld) 49 % [facility] WBC corrected for nucl RBC Auto (Bld) [#/Vol] 3.1 Low [facility] COMPREHENSIVE METABOLIC PANE Adam 01-09-2024 Albumin [Mass/Vol] 4.1 g/dL Normal 3.2-5.[address] Comment on above: Performed By: #### C BCA, CMP ####[facility] ([id number])[address] [place] [address], [place] [address] ALP [Catalytic activity/Vol] 35 U/L Low 39-130 [facility] Comment on above: Performed By: #### C BCA, CMP ####[facility] ([id number])[address] [place] [address] [place] [address] ALT [Catalytic activity/Vol] 30 U/L Normal 0-40 [facility] Comment on above: Performed By: #### C BCA, CMP ####[facility] ([id number])[address] [place] [address] [place] [address] Anion gap [Moles/Vol] 8 mmol/L Normal 5-15 [facility] Comment on above: Performed By: #### C BCA, CMP ####[facility] ([id number])[address] [place] [address] 88974 AST [Catalytic activity/Vol] 27 U/L Normal 0-41 [facility] Comment on above: Performed By: #### C BCA, CMP ####[facility] ([id number])[address] [place] [address] [place] [address] Bilirubin [Mass/Vol] 0.9 mg/dL Normal 0.3-1.2 [facility] Comment on above: Performed By: #### C BCA, CMP ####[facility] ([id number])[address] [place] [address] [place] [address] Calcium [Mass/Vol] 9.1 mg/dL Normal 8.5-10.5 [facility] Comment on above: Performed By: #### C BCA, CMP ####[facility] ([id number])[address] [place] [address] [place] [address] Chloride [Moles/Vol] 104 mmol/L Normal 98-109 [facility] Comment on above: Performed By: #### C BCA, CMP ####[facility] ([id number])[address] [place] [address] CO2 [Moles/Vol] 23 mmol/L Normal 22-32 [facility] Comment on above: Performed By: #### C BCA, CMP ####[facility] ([id number])[address] [place] [address] 43406 Creatinine [Mass/Vol] 0.96 mg/dL Normal 0.70-1.20 [facility] Comment on above: Result Comment: METH OD TRACEABLE TO IDMS STANDARD Performed By: #### C BCA, CMP ####[facility] ([id number])[address] [place] [address] 10951 eGFR (CKD-EPI) NON-RACE DEPENDENT >90 Normal >59 [facility] Comment on above: Result Comment: Repo rted eGFR is based on theCKD-EPI 2020 equation that doesnot use a race coefficient. Performed By: #### C BCA, CMP ####[facility] ([id number])[address] [place] [address] 84352 Glucose [Mass/Vol] 112 mg/dL High 65-99 [facility] Comment on above: Performed By: #### C BCA, CMP ####[facility] ([id number])[address] [place] [address] 91683 Potassium [Moles/Vol] 3.7 mmol/L Normal 3.5-5.0 [facility] Comment on above: Performed By: #### C BCA, CMP ####[facility] ([id number])[address] [place] [address] [place] [address] Protein [Mass/Vol] 6.8 g/dL Normal 6.0-8.0 [facility] Comment on above: Performed By: #### C BCA, CMP ####[facility] ([id number])[address] [place] [address] 96138 Sodium [Moles/Vol] 135 mmol/L Normal 134-146 [facility] Comment on above: Performed By: #### C BCA, CMP ####[facility] ([id number])[address] [place] [address] 30806 Urea nitrogen [Mass/Vol] 9 mg/dL Normal 5-23 [facility] Comment on above: Performed By: #### C BCA, CMP ####[facility] ([id number])[address] [place] [address] 60635 Comprehensive metabolic pane adam 01-09-2024 Albumin [Mass/Vol] 4.1 g/dL 3.2 - 5.3 g/dL [facility] ALP [Catalytic activity/Vol] 35 U/L Low 39 - 130 U/L [facility] ALT No additional P-5'-P [Catalytic activity/Vol] 30 U/L 0 - 40 U/L [facility] Anion gap [Moles/Vol] 8 mmol/L 5 - 15 mmol/L [facility] AST [Catalytic activity/Vol] 27 U/L 0 - 41 U/L [facility] Bilirubin [Mass/Vol] 0.9 mg/dL 0.3 - 1.2 mg/dL [facility] Calcium [Mass/Vol] 9.1 mg/dL 8.5 - 10. 5 mg/dL [facility] Chloride [Moles/Vol] 104 mmol/L 98 - 109 mmol/L [facility] CO2 [Moles/Vol] 23 mmol/L 22 - 32 mmol/L [facility] Creatinine [Mass/Vol] 0.96 mg/dL 0.70 - 1.20 mg/dL [facility] Comment on above: METHOD TRACEABLE TO IDWV STANDARD eGFR (CKD-EPI)non-race dependent - PINF [facility] Comment on above: Reported eGFR is based on the CKD-EPI 2020 equation that does not use a race coefficient. Glucose [Mass/Vol] 112 mg/dL High 65 - 99 mg/dL [facility] Interpretation and review of laboratory results Abnormal [facility] Potassium [Moles/Vol] 3.7 mmol/L 3.5 - 5.0 mmol/L [facility] Protein [Mass/Vol] 6.8 g/dL 6.0 - 8.0 g/dL [facility] Sodium [Moles/Vol] 135 mmol/L 134 - 146 mmol/L [facility] Urea nitrogen [Mass/Vol] 9 mg/dL 5 - 23 mg/dL [facility] CBC AND AUTO DIFFon 12-26-19 ABSOLUTE BASOPHIL 0.0 X10E9/L Normal 0.0-0.2 [facility] Comment on above: Performed By: #### C BCA, CMP ####[facility] ([id number])[address] [place] [address] 82589 ABSOLUTE NEUTROPHIL 2.8 X10E9/L Normal 1.5-6.6 [facility] Comment on above: Performed By: #### C SPENCER, CMP ####[facility] ([id number])[address] [place] [address] 49244 Basophils/100 WBC (Bld) 0.8 % Normal [facility] Comment on above: Performed By: #### C BCA, CMP ####[facility] ([id number])[address] [place] [address] 81966 Eosinophils (Bld) [#/Vol] 0.0 10*3/uL Normal 0.0-0.4 [facility] Comment on above: Performed By: #### C BCA, CMP ####[facility] ([id number])[address] [place] [address] 72221 Eosinophils/100 WBC (Bld) 0.3 % Normal [facility] Comment on above: Performed By: #### C BCA, CMP ####[facility] ([id number])[address] [place] [address] 32551 Erythrocyte distribution width (RBC) [Ratio] 16.5 % High 11.5-15.0 [facility] Comment on above: Performed By: #### C BCA, CMP ####[facility] ([id number])[address] [place] [address] 44910 Hematocrit (Bld) [Volume fraction] 40.3 % Normal 39-49 [facility] Comment on above: Performed By: #### C BCA, CMP ####[facility] ([id number])[address] [place] [address] 82351 Hemoglobin (Bld) [Mass/Vol] 13.3 g/dL Normal 13.0-17.0 [facility] Comment on above: Performed By: #### C SPENCER, CMP ####[facility] ([id number])[address] [place] [address] 79105 Lymphocytes (Bld) [#/Vol] 1.4 10*3/uL Normal 1.0-3.5 [facility] Comment on above: Performed By: #### C SPENCER, CMP ####[facility] ([id number])[address] [place] [address] 03227 Lymphocytes/100 WBC (Bld) 29.0 % Normal [facility] Comment on above: Performed By: #### C SPENCER, CMP ####[facility] ([id number])[address] [place] [address] 82307 MCH (RBC) [Entitic mass] 29.8 pg Normal 27-34 [facility] Comment on above: Performed By: #### C SPENCER, CMP ####[facility] ([id number])[address] [place] [address] [place] [address] MCHC (RBC) [Mass/Vol] 33.1 g/dL Normal 32-36 [facility] Comment on above: Performed By: #### C BCA, CMP ####[facility] ([id number])[address] [place] [address] [place] [address] MCV (RBC) [Entitic vol] 90 fL Normal 80-100 [facility] Comment on above: Performed By: #### C SPENCER, CMP ####[facility] ([id number])[address] [place] [address] 69430 Monocytes (Bld) [#/Vol] 0.6 10*3/uL Normal 0-0.9 [facility] Comment on above: Performed By: #### C SPENCER, CMP ####[facility] ([id number])[address] [place] [address], [place] [address] Monocytes/100 WBC (Bld) 12.8 % Normal [facility] Comment on above: Performed By: #### C SPENCER, CMP ####[facility] ([id number])[address] [place] [address] 22093 Neutrophils/100 WBC (Bld) 57.1 % Normal [facility] Comment on above: Performed By: #### C SPENCER, CMP ####[facility] ([id number])[address] [place] [address] [place] [address] Platelet mean volume (Bld) [Entitic vol] 7.8 fL Normal 7-12 [facility] Comment on above: Performed By: #### C SPENCER, CMP ####[facility] ([id number])[address] [place] [address] 89805 Platelets (Bld) [#/Vol] 207 10*3/uL Normal 150-450 [facility] Comment on above: Performed By: #### C SPENCER, CMP ####[facility] ([id number])[address] [place] [address] [place] [address] RBC COUNT 4.47 X10E12/L Normal 4.10-5.70 [facility] Comment on above: Performed By: #### C BCA, CMP ####[facility] ([id number])[address] [place] [address] 52081 WBC (Bld) [#/Vol] 4.9 10*3/uL Normal 4.0-11.0 [facility] Comment on above: Performed By: #### C BCA, CMP ####[facility] ([id number])[address] [place] [address] CBC auto differentialon 11-0 Basophils (Bld) [#/Vol] 0 10*3/uL [facility] Basophils/100 WBC (Bld) 0.8 % [facility] Eosinophils (Bld) [#/Vol] 0 10*3/uL [facility] Eosinophils/100 WBC (Bld) 0.3 % [facility] Erythrocyte distribution width (RBC) [Ratio] 16.5 % High 11.5 - 15.0 % [facility] Hematocrit (Bld) [Volume fraction] 40.3 % 39 - 49 % [facility] Hemoglobin (Bld) [Mass/Vol] 13.3 g/dL 13.0 - 17.0 g/dL [facility] Interpretation and review of laboratory results Abnormal [facility] Lymphocytes (Bld) [#/Vol] 1.4 10*3/uL [facility] Lymphocytes/100 WBC (Bld) 29 % [facility] MCH (RBC) [Entitic mass] 29.8 pg 27 - 34 pg [facility] MCHC (RBC) [Mass/Vol] 33.1 g/dL 32 - 36 g/dL [facility] MCV (RBC) [Entitic vol] 90 fL 80 - 100 fL [facility] Monocytes (Bld) [#/Vol] 0.6 10*3/uL [facility] Monocytes/100 WBC (Bld) 12.8 % [facility] Neutrophils (Bld) [#/Vol] 2.8 10*3/uL [facility] Neutrophils/100 WBC (Bld) 57.1 % [facility] Platelet mean volume (Bld) [Entitic vol] 7.8 fL 7 - 12 fL [facility] Platelets (Bld) [#/Vol] 207 10*3/uL [facility] RBC (Bld) [#/Vol] 4.47 10*6/uL [facility] WBC corrected for nucl RBC Auto (Bld) [#/Vol] 4.9 [facility] COMPREHENSIVE METABOLIC PANE Adam 12-26-2023 Albumin [Mass/Vol] 4.1 g/dL Normal 3.2-5.3 [facility] Comment on above: Performed By: #### C BCA, CMP ####[facility] ([id number])[address] [place] [address] [place] [address] ALP [Catalytic activity/Vol] 36 U/L Low 39-130 [facility] Comment on above: Performed By: #### C BCA, CMP ####[facility] ([id number])[address] [place] [address] [place] [address] ALT [Catalytic activity/Vol] 36 U/L Normal 0-40 [facility] Comment on above: Performed By: #### C BCA, CMP ####[facility] ([id number])[address] [place] [address], [place] [address] Anion gap [Moles/Vol] 6 mmol/L Normal 5-15 [facility] Comment on above: Performed By: #### C BCA, CMP ####[facility] ([id number])[address] [place] [address] [place] [address] AST [Catalytic activity/Vol] 31 U/L Normal 0-41 [facility] Comment on above: Performed By: #### C BCA, CMP ####[facility] ([id number])[address] [place] [address] [place] [address] Bilirubin [Mass/Vol] 0.9 mg/dL Normal 0.3-1.2 [facility] Comment on above: Performed By: #### C BCA, CMP ####[facility] ([id number])[address] [place] [address] [place] [address] Calcium [Mass/Vol] 9.4 mg/dL Normal 8.5-10.5 [facility] Comment on above: Performed By: #### C BCA, CMP ####[facility] ([id number])[address] [place] [address] [place] [address] Chloride [Moles/Vol] 104 mmol/L Normal 98-109 [facility] Comment on above: Performed By: #### C BCA, CMP ####[facility] ([id number])[address] [place] [address] [place] [address] CO2 [Moles/Vol] 24 mmol/L Normal 22-32 [facility] Comment on above: Performed By: #### C BCA, CMP ####[facility] ([id number])[address] [place] [address] 65932 Creatinine [Mass/Vol] 0.90 mg/dL Normal 0.70-1.20 [facility] Comment on above: Result Comment: METH OD TRACEABLE TO IDMS STANDARD Performed By: #### C BCA, CMP ####[facility] ([id number])[address] [place] [address], [place] [address] eGFR (CKD-EPI) NON-RACE DEPENDENT >90 Normal >59 [facility] Comment on above: Result Comment: Repo rted eGFR is based on theCKD-EPI 2020 equation that doesnot use a race coefficient. Performed By: #### C BCA, CMP ####[facility] ([id number])[address] [place] [address] [place] [address] Glucose [Mass/Vol] 116 mg/dL High 65-99 [facility] Comment on above: Performed By: #### C BCA, CMP ####[facility] ([id number])[address] [place] [address] [place] [address] Potassium [Moles/Vol] 4.2 mmol/L Normal 3.5-5.0 [facility] Comment on above: Performed By: #### C BCA, CMP ####[facility] ([id number])[address] [place] [address] 21942 Protein [Mass/Vol] 6.8 g/dL Normal 6.0-8.0 [facility] Comment on above: Performed By: #### C BCA, CMP ####[facility] ([id number])[address] [place] [address] 90527 Sodium [Moles/Vol] 134 mmol/L Normal 134-146 [facility] Comment on above: Performed By: #### C BCA, CMP ####[facility] ([id number])[address] [place] [address] 98223 Urea nitrogen [Mass/Vol] 10 mg/dL Normal 5-23 [facility] Comment on above: Performed By: #### C BCA, CMP ####[facility] ([id number])[address] [place] [address] CHEST W CONTon 12-26-2023 CT CHEST W CONT Normal [facility] Comprehensive metabolic pane adam 12-26-2023 Albumin [Mass/Vol] 4.1 g/dL 3.2 - 5.3 g/dL [facility] ALP [Catalytic activity/Vol] 36 U/L Low 39 - 130 U/L [facility] ALT No additional P-5'-P [Catalytic activity/Vol] 36 U/L 0 - 40 U/L [facility] Anion gap [Moles/Vol] 6 mmol/L 5 - 15 mmol/L [facility] AST [Catalytic activity/Vol] 31 U/L 0 - 41 U/L [facility] Bilirubin [Mass/Vol] 0.9 mg/dL 0.3 - 1.2 mg/dL [facility] Calcium [Mass/Vol] 9.4 mg/dL 8.5 - 10. 5 mg/dL [facility] Chloride [Moles/Vol] 104 mmol/L 98 - 109 mmol/L [facility] CO2 [Moles/Vol] 24 mmol/L 22 - 32 mmol/L [facility] Creatinine [Mass/Vol] 0.9 mg/dL 0.70 - 1.20 mg/dL [facility] Comment on above: METHOD TRACEABLE TO IDWV STANDARD eGFR (CKD-EPI)non-race dependent - PINF [facility] Comment on above: Reported eGFR is based on the CKD-EPI 2020 equation that does not use a race coefficient. Glucose [Mass/Vol] 116 mg/dL High 65 - 99 mg/dL [facility] Interpretation and review of laboratory results Abnormal [facility] Potassium [Moles/Vol] 4.2 mmol/L 3.5 - 5.0 mmol/L [facility] Protein [Mass/Vol] 6.8 g/dL 6.0 - 8.0 g/dL [facility] Sodium [Moles/Vol] 134 mmol/L 134 - 146 mmol/L [facility] Urea nitrogen [Mass/Vol] 10 mg/dL 5 - 23 mg/dL [facility] CT ABDOMEN AND PELVIS W CONT on 12-23-2023 CT ABDOMEN AND PELVIS W CONT Normal [facility] Office Visiton 12-21-2023 Follow-up visit [id number] Arvin Julien 1980 M Date Provider Department Center 12/21/2023 [id number] SCHAFER MIAH [facility] Family History Problem Relation Age of Onset No Known Problems Mother Heart disease Father Heart failure Father Heart failure Brother Heart disease Brother Family Status - Relation Status Age at Mother Father Brother Level of Service:78582 PA OFFICE/OUTPATIENT ESTABLISHED MOD MDM 30 MIN Reason for Visit and Comments: f/u cardioversion [Other] Atrial Fibrillation [80] - States he can tell he's back in afib. Denies hematuria but has epistaxis. Dizziness [] - Says his BP has been low lately. Shortness of Breath [] Edema [[id number]] - He's +12 lbs since visit on 12/05/2023. Palpitations [] Chest Pain [[id number]] - Tightness Normal [facility] CBC AND AUTO DIFFon 12-19-19 24 ABSOLUTE BASOPHIL 0.0 X10E9/L Normal 0.0-0.2 [facility] Comment on above: Performed By: #### C BCA, CMP ####[facility] ([id number])[address] [place] [address], [place] [address] Band form neutrophils/100 WBC (Bld) 1.0 % Normal [facility] Comment on above: Performed By: #### C SPENCER, CMP ####[facility] ([id number])[address] [place] [address], [place] [address] Basophils/100 WBC (Bld) 1.0 % Normal [facility] Comment on above: Performed By: #### C SPENCER, CMP ####[facility] ([id number])[address] [place] [address] 59380 Eosinophils (Bld) [#/Vol] 0.0 10*3/uL Normal 0.0-0.4 [facility] Comment on above: Performed By: #### C SPENCER, CMP ####[facility] ([id number])[address] [place] [address] 86863 Eosinophils/100 WBC (Bld) 1.0 % Normal [facility] Comment on above: Performed By: #### C SPENCER, CMP ####[facility] ([id number])[address] [place] [address] 57535 Erythrocyte distribution width (RBC) [Ratio] 16.7 % High 11.5-15.0 [facility] Comment on above: Performed By: #### C SPENCER, CMP ####[facility] ([id number])[address] [place] [address] 14593 Hematocrit (Bld) [Volume fraction] 39.8 % Normal 39-49 [facility] Comment on above: Performed By: #### C SPENCER, CMP ####[facility] ([id number])[address] [place] [address] 28887 Hemoglobin (Bld) [Mass/Vol] 13.4 g/dL Normal 13.0-17.0 [facility] Comment on above: Performed By: #### C SPENCER, CMP ####[facility] ([id number])[address] [place] [address] 55986 LYMPHOCYTE, ATYPICAL 3.0 % Normal [facility] Comment on above: Performed By: #### C SPENCER, CMP ####[facility] ([id number])[address] [place] [address] 69690 Lymphocytes (Bld) [#/Vol] 1.0 10*3/uL Normal 1.0-3.5 [facility] Comment on above: Performed By: #### C SPENCER, CMP ####[facility] ([id number])[address] [place] [address] 09237 Lymphocytes/100 WBC (Bld) 34.0 % Normal [facility] Comment on above: Performed By: #### C SPENCER, CMP ####[facility] ([id number])[address] [place] [address] 81282 MCH (RBC) [Entitic mass] 30.2 pg Normal 27-34 [facility] Comment on above: Performed By: #### C SPENCER, CMP ####[facility] ([id number])[address] [place] [address] [place] [address] MCHC (RBC) [Mass/Vol] 33.8 g/dL Normal 32-36 [facility] Comment on above: Performed By: #### C SPENCER, CMP ####[facility] ([id number])[address] [place] [address] [place] [address] MCV (RBC) [Entitic vol] 89 fL Normal 80-100 [facility] Comment on above: Performed By: #### C SPENCER, CMP ####[facility] ([id number])[address] [place] [address] [place] [address] Metamyelocytes/100 WBC (Bld) 2.0 % Normal [facility] Comment on above: Performed By: #### C SPENCER, CMP ####[facility] ([id number])[address] [place] [address] 30896 Monocytes (Bld) [#/Vol] 0.7 10*3/uL Normal 0-0.9 [facility] Comment on above: Performed By: #### C SPENCER, CMP ####[facility] ([id number])[address] [place] [address] 42351 Monocytes/100 WBC (Bld) 28.0 % Normal [facility] Comment on above: Performed By: #### C SPENCER, CMP ####[facility] ([id number])[address] [place] [address] 19855 Neutrophils (Bld) [#/Vol] 0.8 10*3/uL Low 1.5-6.6 [facility] Comment on above: Performed By: #### C SPENCER, CMP ####[facility] ([id number])[address] [place] [address] 57515 Platelet mean volume (Bld) [Entitic vol] 8.1 fL Normal 7-12 [facility] Comment on above: Performed By: #### C SPENCER, CMP ####[facility] ([id number])[address] [place] [address] 92619 Platelets (Bld) [#/Vol] 201 10*3/uL Normal 150-450 [facility] Comment on above: Performed By: #### C SPENCER, CMP ####[facility] ([id number])[address] [place] [address] 85477 RBC COUNT 4.45 X10E12/L Normal 4.10-5.70 [facility] Comment on above: Performed By: #### C BCA, CMP ####[facility] ([id number])[address] [place] [address] 06104 RBC morphology finding Nom (Bld) REVIEWED Normal [facility] Comment on above: Performed By: #### C SPENCER, CMP ####[facility] ([id number])[address] [place] [address] 21581 SEG NEUTROPHIL 30.0 % Normal [facility] Comment on above: Performed By: #### C SPENCER, CMP ####[facility] ([id number])[address] [place] [address] 23354 TOXIC GRANULATION 2+ Abnormal NONE [facility] Comment on above: Performed By: #### C SPENCER, CMP ####[facility] ([id number])[address] [place] [address] 07860 WBC (Bld) [#/Vol] 2.6 10*3/uL Low 4.0-11.0 [facility] Comment on above: Performed By: #### Brock PALMER, CMP ####[facility] ([id number])[address] [place] [address] 90552 CBC auto differentialon 11-22 Band form neutrophils/100 WBC (Bld) 1 % [facility] Basophils (Bld) [#/Vol] 0 10*3/uL [facility] Basophils/100 WBC (Bld) 1 % [facility] Eosinophils (Bld) [#/Vol] 0 10*3/uL [facility] Eosinophils/100 WBC (Bld) 1 % [facility] Erythrocyte distribution width (RBC) [Ratio] 16.7 % High 11.5 - 15.0 % [facility] Hematocrit (Bld) [Volume fraction] 39.8 % 39 - 49 % [facility] Hemoglobin (Bld) [Mass/Vol] 13.4 g/dL 13.0 - 17.0 g/dL [facility] Interpretation and review of laboratory results Abnormal [facility] Lymphocytes (Bld) [#/Vol] 1 10*3/uL [facility] Lymphocytes/100 WBC (Bld) 34 % [facility] MCH (RBC) [Entitic mass] 30.2 pg 27 - 34 pg [facility] MCHC (RBC) [Mass/Vol] 33.8 g/dL 32 - 36 g/dL [facility] MCV (RBC) [Entitic vol] 89 fL 80 - 100 fL [facility] Metamyelocytes/100 WBC (Bld) 2 % [facility] Monocytes (Bld) [#/Vol] 0.7 10*3/uL [facility] Monocytes/100 WBC (Bld) 28 % [facility] Neutrophils (Bld) [#/Vol] 0.8 10*3/uL Low [facility] Platelet mean volume (Bld) [Entitic vol] 8.1 fL 7 - 12 fL [facility] Platelets (Bld) [#/Vol] 201 10*3/uL [facility] Polymorphonuclear cells/100 WBC (Bld) REVIEWED [facility] RBC (Bld) [#/Vol] 4.45 10*6/uL [facility] Segmented neutrophils/100 WBC (Bld) 30 % [facility] Toxic granules LM Ql (Bld) 2+ Abnormal NONE^NONE [facility] Variant lymphocytes/100 WBC (Bld) 3 % [facility] WBC corrected for nucl RBC Auto (Bld) [#/Vol] 2.6 Low [facility] COMPREHENSIVE METABOLIC PANE Adam 12-19-2023 Albumin [Mass/Vol] 4.2 g/dL Normal 3.2-5.3 [facility] Comment on above: Performed By: #### C SPENCER, CMP ####[facility] ([id number])[address] [place] [address] 73522 ALP [Catalytic activity/Vol] 37 U/L Low 39-130 [facility] Comment on above: Performed By: #### C SPENCER, CMP ####[facility] ([id number])[address] [place] [address] 89632 ALT [Catalytic activity/Vol] 42 U/L High 0-40 [facility] Comment on above: Performed By: #### C BCA, CMP ####[facility] ([id number])[address] [place] [address], [place] [address] Anion gap [Moles/Vol] 8 mmol/L Normal 5-15 [facility] Comment on above: Performed By: #### C BCA, CMP ####[facility] ([id number])[address] [place] [address], [place] [address] AST [Catalytic activity/Vol] 30 U/L Normal 0-41 [facility] Comment on above: Performed By: #### C BCA, CMP ####[facility] ([id number])[address] [place] [address], [place] [address] Bilirubin [Mass/Vol] 0.9 mg/dL Normal 0.3-1.2 [facility] Comment on above: Performed By: #### C BCA, CMP ####[facility] ([id number])[address] [place] [address], [place] [address] Calcium [Mass/Vol] 9.2 mg/dL Normal 8.5-10.5 [facility] Comment on above: Performed By: #### C BCA, CMP ####[facility] ([id number])[address] [place] [address], [place] [address] Chloride [Moles/Vol] 102 mmol/L Normal 98-109 [facility] Comment on above: Performed By: #### C BCA, CMP ####[facility] ([id number])[address] [place] [address], [place] [address] CO2 [Moles/Vol] 23 mmol/L Normal 22-32 [facility] Comment on above: Performed By: #### C BCA, CMP ####[facility] ([id number])[address] [place] [address], [place] [address] Creatinine [Mass/Vol] 1.03 mg/dL Normal 0.70-1.20 [facility] Comment on above: Result Comment: METH OD TRACEABLE TO IDMS STANDARD Performed By: #### C BCA, CMP ####[facility] ([id number])[address] [place] [address], [place] [address] eGFR (CKD-EPI) NON-RACE DEPENDENT >90 Normal >59 [facility] Comment on above: Result Comment: Repo rted eGFR is based on theCKD-EPI 2020 equation that doesnot use a race coefficient. Performed By: #### C BCA, CMP ####[facility] ([id number])[address] [place] [address] [place] [address] Glucose [Mass/Vol] 144 mg/dL High 65-99 [facility] Comment on above: Performed By: #### C BCA, CMP ####[facility] ([id number])[address] [place] [address] 92379 Potassium [Moles/Vol] 4.1 mmol/L Normal 3.5-5.0 [facility] Comment on above: Performed By: #### C BCA, CMP ####[facility] ([id number])[address] [place] [address], [place] [address] Protein [Mass/Vol] 6.9 g/dL Normal 6.0-8.0 [facility] Comment on above: Performed By: #### C BCA, CMP ####[facility] ([id number])[address] [place] [address], [place] [address] Sodium [Moles/Vol] 133 mmol/L Low 134-146 [facility] Comment on above: Performed By: #### C BCA, CMP ####[facility] ([id number])[address] [place] [address] [place] [address] Urea nitrogen [Mass/Vol] 11 mg/dL Normal 5-23 [facility] Comment on above: Performed By: #### C BCA, CMP ####[facility] ([id number])[address] [place] [address] Comprehensive metabolic pane adam 12-19-2023 Albumin [Mass/Vol] 4.2 g/dL 3.2 - 5.3 g/dL [facility] ALP [Catalytic activity/Vol] 37 U/L Low 39 - 130 U/L [facility] ALT No additional P-5'-P [Catalytic activity/Vol] 42 U/L High 0 - 40 U/L [facility] Anion gap [Moles/Vol] 8 mmol/L 5 - 15 mmol/L [facility] AST [Catalytic activity/Vol] 30 U/L 0 - 41 U/L [facility] Bilirubin [Mass/Vol] 0.9 mg/dL 0.3 - 1.2 mg/dL [facility] Calcium [Mass/Vol] 9.2 mg/dL 8.5 - 10. 5 mg/dL [facility] Chloride [Moles/Vol] 102 mmol/L 98 - 109 mmol/L [facility] CO2 [Moles/Vol] 23 mmol/L 22 - 32 mmol/L [facility] Creatinine [Mass/Vol] 1.03 mg/dL 0.70 - 1.20 mg/dL [facility] Comment on above: METHOD TRACEABLE TO IDWV STANDARD eGFR (CKD-EPI)non-race dependent - PINF [facility] Comment on above: Reported eGFR is based on the CKD-EPI 2020 equation that does not use a race coefficient. Glucose [Mass/Vol] 144 mg/dL High 65 - 99 mg/dL [facility] Interpretation and review of laboratory results Abnormal [facility] Potassium [Moles/Vol] 4.1 mmol/L 3.5 - 5.0 mmol/L [facility] Protein [Mass/Vol] 6.9 g/dL 6.0 - 8.0 g/dL [facility] Sodium [Moles/Vol] 133 mmol/L Low 134 - 146 mmol/L [facility] Urea nitrogen [Mass/Vol] 11 mg/dL 5 - 23 mg/dL [facility] HPon 12-09-2023 Cardiology H & P Chief Complaint: Shortness of breath HPI: Juan Luis Julien is a 44 y.o. male with history of paroxysmal atrial fibrillation status post cardioversion in the past and most recently during admission to [facility] in October 2023. He also was found to have heart failure with reduced ejection fraction. He has history of stage IV lung cancer and is maintained on chemotherapy, one day twice a month. Currently he is on amiodarone and Eliquis for atrial fibrillation management. For heart failure therapy he is on spironolactone, metoprolol succinate, losartan, Farxiga. He was evaluated in follow-up after the hospital admission on 11/24/2023 in our cardiology clinic by nurse practitioner Katie Silva. He was found to have been back into atrial fibrillation. He has been having worsening symptoms of shortness of breath, and weight gain. No chest pain. He feels palpitations. He reports that he felt much better after the cardioversion and now he is feeling very tired. Cardiology ROS: GENERAL: Denies fever, chills, night sweats, weight loss. HEENT: Denies changes in vision, photophobia, changes in hearing, epistaxis, oral bleeding. CARDIOVASCULAR: He reports SOB and tiredness. Denies chest pain, orthopnea/PND, lower extremity edema, palpitations, lightheadedness/dizziness. RESPIRATORY: Denies SOB, coughing, wheezing GI: Denies abdominal pain, nausea/vomiting, heartburn, melena/hematochezia. RENAL: Denies dysuria, hematuria, flank pain. MSK: Denies muscle weakness/pain, arthralgias/joint pain. NEUROLOGIC: Denies LOC, weakness, numbness, headaches. SKIN: Denies abnormal rashes or bleeding. PSYCH: Denies significant anxiety, depression, sleep disturbances. Past Medical History He has a past medical history of Abnormal ECG, Anxiety, Arrhythmia, Atrial fibrillation ([facility]/HCC), Cancer (CMS/[facility]), Drug abuse (CMS/[facility]), GERD (gastroesophageal reflux disease), Hypertension, Irregular heart beat, Pulmonary mass, Shortness of breath, and Sleep apnea. Surgical History He has a past surgical history that includes Tonsillectomy; Carpal tunnel release (Bilateral, 2019); Uvulopalatopharyngoplasty (01/2017); and Cardioversion. Social History He reports that he quit smoking about 22 months ago. His smoking use included cigarettes. He started smoking about 31 years ago. He has a 60 pack-year smoking history. He has been exposed to tobacco smoke. His smokeless tobacco use includes chew. He reports that he does not currently use alcohol. He reports that he does not currently use drugs after having used the following drugs: Heroin. Family History Family History Problem Relation Name Age of Onset No Known Problems Mother Heart disease Father Heart failure Father Heart failure Brother Heart disease Brother Allergies Celecoxib Medications No current facility-administered medications for this encounter. Current Outpatient Medications: amiodarone (Pacerone) 200 mg tablet, Take 1 tablet (200 mg) by mouth once daily as directed., Disp: 90 tablet, Rfl: 3 apixaban (Eliquis) 5 mg tablet, Take 1 tablet (5 mg) by mouth two times daily., Disp: 180 tablet, Rfl: 3 buprenorphine-naloxone (Suboxone) 8-2 mg SL film, dissolve 1 FILM under the tongue twice a day, Disp: , Rfl: losartan (Cozaar) 25 mg tablet, Take 1 tablet (25 mg) by mouth once daily as directed., Disp: 90 tablet, Rfl: 3 metoprolol succinate XL (Toprol-XL) 100 mg 24 hr tablet, Take 1 tablet (100 mg) by mouth once daily in the morning. Take 100 mg in the morning and 50 mg in the evening, Disp: 90 tablet, Rfl: 3 metoprolol succinate XL (Toprol-XL) 50 mg 24 hr tablet, Take 1 tablet (50 mg) by mouth once daily in the evening. Do not crush or chew. Take 100 mg in the morning and 50 mg in the evening., Disp: 90 tablet, Rfl: 3 spironolactone (Aldactone) 50 mg tablet, Take 1 tablet (50 mg) by mouth in the morning., Disp: 90 tablet, Rfl: 3 dapagliflozin propanediol (Farxiga) 10 mg, Take 1 tablet (10 mg) by mouth once daily as directed., Disp: 90 tablet, Rfl: 3 LORazepam (Ativan) 0.5 mg tablet, , Disp: , Rfl: losartan (Cozaar) 25 mg tablet, Take 1 tablet (25 mg) by mouth once daily as directed., Disp: 90 tablet, Rfl: 3 spironolactone (Aldactone) 25 mg tablet, Take 1 tablet (25 mg) by mouth once daily as directed., Disp: 90 tablet, Rfl: 3 Last Recorded Vitals Visit Vitals BP 106/82 Pulse 70 Resp 18 SpO2 99% Smoking Status Former Physical Examination: GENERAL: alert and oriented x3, well developed, in no acute distress. HEAD: atraumatic, normocephalic. EYES: SHAZIA, EOMI. NECK: trachea midline, no JVD present, no carotid bruits present. CARDIAC: S1, S2 present. Irregular irregularity. RESPIRATORY: CTAB, no increased effort of breathing, no rales, rhonchi, or wheezing. ABDOMEN: soft, nontender, nondistended. EXTREMITIES: no lower extremity edema, peripheral pulses are 2+ bilaterally. No rash/skin discoloration pr (more content not included)... Normal [facility] HP Interval H& P Dr Rodriguez asked me to finish cardioversion as the patient could not be sedated adequately and Dr Rodriguez has another procedure he had to go to Patient was hemodynamically stable but still wakes up for stimulation. Exam: no change from Dr Rodriguez examination Will proceed with cardioversion when patient is adequately sedated Sukhwinder Schafer MD History Of Present Illness Arvin Julien is a 43 y.o. male presenting with Atrial fibrillation. Past Medical History He has a past medical history of Anxiety, Arrhythmia, Atrial fibrillation (CMS/HCC), Drug abuse (CMS/HCC), GERD (gastroesophageal reflux disease), Irregular heart beat, Pulmonary mass, Shortness of breath, and Sleep apnea. Surgical History He has a past surgical history that includes Tonsillectomy; Carpal tunnel release (Bilateral, 2019); and Uvulopalatopharyngoplasty (01/2017). Social History He reports that he quit smoking about 19 months ago. His smoking use included cigarettes. He has a 60.00 pack-year smoking history. He has been exposed to tobacco smoke. His smokeless tobacco use includes chew. He reports that he does not currently use alcohol. He reports that he does not currently use drugs after having used the following drugs: Heroin. Allergies Celecoxib Medications No medications prior to admission. Review of Systems Physical Exam Last Recorded Vitals Blood pressure 106/82, pulse 70, resp. rate 18, SpO2 99 %. Relevant Results Atrial fibrillation Assessment/Plan Principal Problem: Persistent atrial fibrillation (CMS/HCC) Cardioversion Jesse Rodriguez M.D. [facility] director utilization management and Pediatrics Director: Cardiac Electrophysiology Program [facility] NURSNOTEed 12-09-2023 NURSNOTE RN educated pt on d/ c instructions. This included: site care, limited physical activity, resume normal diet, future appointments, medications, and moderate sedation instructions. RN educated pt on when to notify physician and when to go to the hospital. RN encouraged pt to voice any questions or concerns, and answered any questions or concerns if pt verbalized. Pt was wheeled off of unit with all of belongings. Normal [facility] CBC AND AUTO DIFFon 12-05-19 ABSOLUTE BASOPHIL 0.0 X10E9/L Normal 0.0-0.2 [facility] Comment on above: Performed By: #### C RADHA, CBCA ####[facility] ([id number])[address] [place] [address] 17411 ABSOLUTE NEUTROPHIL 1.7 X10E9/L Normal 1.5-6.6 [facility] Comment on above: Performed By: #### C MP, CBCA ####[facility] ([id number])[address] [place] [address] 97156 Basophils/100 WBC (Bld) 1.0 % Normal [facility] Comment on above: Performed By: #### C MP, CBCA ####[facility] ([id number])[address] [place] [address] 38077 Eosinophils (Bld) [#/Vol] 0.0 10*3/uL Normal 0.0-0.4 [facility] Comment on above: Performed By: #### C MP, CBCA ####[facility] ([id number])[address] [place] [address] 74802 Eosinophils/100 WBC (Bld) 1.0 % Normal [facility] Comment on above: Performed By: #### C MP, CBCA ####[facility] ([id number])[address] [place] [address] 05618 Erythrocyte distribution width (RBC) [Ratio] 17.1 % High 11.5-15.0 [facility] Comment on above: Performed By: #### C MP, CBCA ####[facility] ([id number])[address] [place] [address] 05716 Hematocrit (Bld) [Volume fraction] 39.2 % Normal 39-49 [facility] Comment on above: Performed By: #### C MP, CBCA ####[facility] ([id number])[address] [place] [address] 30508 Hemoglobin (Bld) [Mass/Vol] 12.8 g/dL Low 13.0-17.0 [facility] Comment on above: Performed By: #### C MP, CBCA ####[facility] ([id number])[address] [place] [address] 63285 Lymphocytes (Bld) [#/Vol] 1.4 10*3/uL Normal 1.0-3.5 [facility] Comment on above: Performed By: #### C MP, CBCA ####[facility] ([id number])[address] [place] [address] 30148 Lymphocytes/100 WBC (Bld) 35.1 % Normal [facility] Comment on above: Performed By: #### C MP, CBCA ####[facility] ([id number])[address] [place] [address] 48781 MCH (RBC) [Entitic mass] 29.8 pg Normal 27-34 [facility] Comment on above: Performed By: #### C MP, CBCA ####[facility] ([id number])[address] [place] [address] 91966 MCHC (RBC) [Mass/Vol] 32.7 g/dL Normal 32-36 [facility] Comment on above: Performed By: #### C MP, CBCA ####[facility] ([id number])[address] [place] [address], [place] [address] MCV (RBC) [Entitic vol] 91 fL Normal 80-100 [facility] Comment on above: Performed By: #### C MP, CBCA ####[facility] ([id number])[address] [place] [address] 41480 Monocytes (Bld) [#/Vol] 0.7 10*3/uL Normal 0-0.9 [facility] Comment on above: Performed By: #### C MP, CBCA ####[facility] ([id number])[address] [place] [address] 14955 Monocytes/100 WBC (Bld) 18.6 % Normal [facility] Comment on above: Performed By: #### C MP, CBCA ####[facility] ([id number])[address] [place] [address] 21777 Neutrophils/100 WBC (Bld) 44.3 % Normal [facility] Comment on above: Performed By: #### C MP, CBCA ####[facility] ([id number])[address] [place] [address] 36540 Platelet mean volume (Bld) [Entitic vol] 8.0 fL Normal 7-12 [facility] Comment on above: Performed By: #### C MP, CBCA ####[facility] ([id number])[address] [place] [address] [place] [address] Platelets (Bld) [#/Vol] 164 10*3/uL Normal 150-450 [facility] Comment on above: Performed By: #### C MP, CBCA ####[facility] ([id number])[address] [place] [address], [place] [address] RBC COUNT 4.29 X10E12/L Normal 4.10-5.70 [facility] Comment on above: Performed By: #### C MP, CBCA ####[facility] ([id number])[address] [place] [address] 32487 WBC (Bld) [#/Vol] 3.9 10*3/uL Low 4.0-11.0 [facility] Comment on above: Performed By: #### C MP, CBCA ####[facility] ([id number])[address] [place] [address] 11114 CBC auto differentialon 11-21 Basophils (Bld) [#/Vol] 0.0 10*3/uL [facility] Basophils/100 WBC (Bld) 1.0 % [facility] Eosinophils (Bld) [#/Vol] 0.0 10*3/uL [facility] Eosinophils/100 WBC (Bld) 1.0 % [facility] Erythrocyte distribution width (RBC) [Ratio] 17.1 % High 11.5 - 15.0 % [facility] Hematocrit (Bld) [Volume fraction] 39.2 % 39 - 49 % [facility] Hemoglobin (Bld) [Mass/Vol] 12.8 g/dL Low 13.0 - 17.0 g/dL [facility] Interpretation and review of laboratory results Abnormal [facility] Lymphocytes (Bld) [#/Vol] 1.4 10*3/uL [facility] Lymphocytes/100 WBC (Bld) 35.1 % [facility] MCH (RBC) [Entitic mass] 29.8 pg 27 - 34 pg [facility] MCHC (RBC) [Mass/Vol] 32.7 g/dL 32 - 36 g/dL [facility] MCV (RBC) [Entitic vol] 91 fL 80 - 100 fL [facility] Monocytes (Bld) [#/Vol] 0.7 10*3/uL [facility] Monocytes/100 WBC (Bld) 18.6 % [facility] Neutrophils (Bld) [#/Vol] 1.7 10*3/uL [facility] Neutrophils/100 WBC (Bld) 44.3 % [facility] Platelet mean volume (Bld) [Entitic vol] 8.0 fL 7 - 12 fL [facility] Platelets (Bld) [#/Vol] 164 10*3/uL [facility] RBC (Bld) [#/Vol] 4.29 10*6/uL [facility] WBC corrected for nucl RBC Auto (Bld) [#/Vol] 3.9 Low [facility] COMPREHENSIVE METABOLIC PANE Adam 12-05-2023 Albumin [Mass/Vol] 4.1 g/dL Normal 3.2-5.3 [facility] Comment on above: Performed By: #### C RADHA CBCA ####[facility] ([id number])[address] [place] [address] 62512 ALP [Catalytic activity/Vol] 36 U/L Low 39-130 [facility] Comment on above: Performed By: #### C RADHA CBCA ####[facility] ([id number])[address] [place] [address] 65325 ALT [Catalytic activity/Vol] 40 U/L Normal 0-40 [facility] Comment on above: Performed By: #### C RADHA CBCA ####[facility] ([id number])[address] [place] [address] 29970 Anion gap [Moles/Vol] 10 mmol/L Normal 5-15 [facility] Comment on above: Performed By: #### C RADHA CBCA ####[facility] ([id number])[address] [place] [address] 47196 AST [Catalytic activity/Vol] 29 U/L Normal 0-41 [facility] Comment on above: Performed By: #### C RADHA, CBCA ####[facility] ([id number])[address] [place] [address] 01693 Bilirubin [Mass/Vol] 0.7 mg/dL Normal 0.3-1.2 [facility] Comment on above: Performed By: #### C RADHA, CBCA ####[facility] ([id number])[address] [place] [address] 48029 Calcium [Mass/Vol] 9.6 mg/dL Normal 8.5-10.5 [facility] Comment on above: Performed By: #### C RADHA, CBCA ####[facility] ([id number])[address] [place] [address] [place] [address] Chloride [Moles/Vol] 102 mmol/L Normal 98-109 [facility] Comment on above: Performed By: #### C RADHA, CBCA ####[facility] ([id number])[address] [place] [address] 64183 CO2 [Moles/Vol] 23 mmol/L Normal 22-32 [facility] Comment on above: Performed By: #### C RADHA, CBCA ####[facility] ([id number])[address] [place] [address] 41125 Creatinine [Mass/Vol] 1.07 mg/dL Normal 0.70-1.20 [facility] Comment on above: Result Comment: METH OD TRACEABLE TO IDMS STANDARD Performed By: #### C RADHA, CBCA ####[facility] ([id number])[address] [place] [address] 28781 GFR/1.73 sq M.predicted among non-blacks MDRD (S/P/Bld) [Vol rate/Area] 87 mL/min/{1.73_m2} Normal >59 [facility] Comment on above: Result Comment: Repo rted eGFR is based on theCKD-EPI 2020 equation that doesnot use a race coefficient. Performed By: #### C RADHA, CBCA ####[facility] ([id number])[address] [place] [address] [place] [address] Glucose [Mass/Vol] 152 mg/dL High 65-99 [facility] Comment on above: Performed By: #### C MP, CBCA ####[facility] ([id number])[address] [place] [address] 88952 Potassium [Moles/Vol] 4.3 mmol/L Normal 3.5-5.0 [facility] Comment on above: Performed By: #### C MP, CBCA ####[facility] ([id number])[address] [place] [address] 45327 Protein [Mass/Vol] 7.3 g/dL Normal 6.0-8.0 [facility] Comment on above: Performed By: #### C RADHA, CBCA ####[facility] ([id number])[address] [place] [address] 11671 Sodium [Moles/Vol] 135 mmol/L Normal 134-146 [facility] Comment on above: Performed By: #### C RADHA, CBCA ####[facility] ([id number])[address] [place] [address] 21741 Urea nitrogen [Mass/Vol] 9 mg/dL Normal 5-23 [facility] Comment on above: Performed By: #### C RADHA, CBCA ####[facility] ([id number])[address] [place] [address] 32282 Comprehensive metabolic pane [facility] 12-05-2023 Albumin [Mass/Vol] 4.1 g/dL 3.2 - 5.3 g/dL [facility] ALP [Catalytic activity/Vol] 36 U/L Low 39 - 130 U/L [facility] ALT No additional P-5'-P [Catalytic activity/Vol] 40 U/L 0 - 40 U/L [facility] Anion gap [Moles/Vol] 10 mmol/L 5 - 15 mmol/L [facility] AST [Catalytic activity/Vol] 29 U/L 0 - 41 U/L [facility] Bilirubin [Mass/Vol] 0.7 mg/dL 0.3 - 1.2 mg/dL [facility] Calcium [Mass/Vol] 9.6 mg/dL 8.5 - 10. 5 mg/dL [facility] Chloride [Moles/Vol] 102 mmol/L 98 - 109 mmol/L [facility] CO2 [Moles/Vol] 23 mmol/L 22 - 32 mmol/L [facility] Creatinine [Mass/Vol] 1.07 mg/dL 0.70 - 1.20 mg/dL [facility] Comment on above: METHOD TRACEABLE TO [facility] STANDARD eGFR (CKD-EPI)non-race dependent 87 - PINF [facility] Comment on above: Reported eGFR is based on the CKD-EPI 2020 equation that does not use a race coefficient. Glucose [Mass/Vol] 152 mg/dL High 65 - 99 mg/dL [facility] Interpretation and review of laboratory results Abnormal [facility] Potassium [Moles/Vol] 4.3 mmol/L 3.5 - 5.0 mmol/L [facility] Protein [Mass/Vol] 7.3 g/dL 6.0 - 8.0 g/dL [facility] Sodium [Moles/Vol] 135 mmol/L 134 - 146 mmol/L [facility] Urea nitrogen [Mass/Vol] 9 mg/dL 5 - 23 mg/dL [facility] Office Visiton 12-05-2023 Follow-up visit [id number] Arvin Julien 1980 M Date Provider Department Center 12/05/2023 CARLEE [place]UMFIELD MIAH Rivera Family History Problem Relation Age of Onset No Known Problems Mother Heart disease Father Heart failure Father Heart failure Brother Heart disease Brother Family Status - Relation Status Age at Mother Father Brother Level of Service:75957 PA OFFICE/OUTPATIENT ESTABLISHED HIGH MDM 40 MIN Normal [facility] Orders Onlyon 12-02-2023 Orders Only [id number] Arvin Julien 1980 Date Provider Department Center 12/02/2023 Rosalba-KATIE KRISHNAMURTHY. Family History Problem Relation Age of Onset No Known Problems Mother Heart disease Father Heart failure Father Heart failure Brother Heart disease Brother Family Status - Relation Status Age at Mother Father Brother Normal [facility] Follow-Upon 11-30-2023 Follow-Up [id number] Arvin Julien 1980 M Date Provider Department Center 11/30/2023 JOHNNY [facility] MED Comprehensiv Family History Problem Relation Age of Onset No Known Problems Mother Heart disease Father Heart failure Father Heart failure Brother Heart disease Brother Family Status - Relation Status Age at Mother Father Brother Level of Service:17895 PA OFFICE/OUTPATIENT NEW MODERATE MDM 45 MINUTES Reason for Visit and Comments: New Patient [632] - Establish care/HFU-pneumonia Normal [facility] Office Visiton 11-24-2023 Follow-up visit [id number] Arvin Julien 1980 M Date Provider Department Center 11/24/2023 Rosalba-KATIE KRISHNAMURTHY MIAH [facility] Family History Family history unknown: Yes Level of Service:36953 PA OFFICE/OUTPATIENT ESTABLISHED MOD MDM 30 MIN Normal [facility] CBC AND AUTO DIFFon 11-21-19 24 ABSOLUTE BASOPHIL 0.1 X10E9/L Normal 0.0-0.2 [facility] Comment on above: Performed By: #### C RADHA CBCA ####[facility] ([id number])[address] [place] [address] 40077 ABSOLUTE NEUTROPHIL 4.3 X10E9/L Normal 1.5-6.6 [facility] Comment on above: Performed By: #### C MP, CBCA ####[facility] ([id number])[address] [place] [address] 26914 Basophils/100 WBC (Bld) 0.9 % Normal [facility] Comment on above: Performed By: #### C RADHA, CBCA ####[facility] ([id number])[address] [place] [address] 28725 Eosinophils (Bld) [#/Vol] 0.1 10*3/uL Normal 0.0-0.4 [facility] Comment on above: Performed By: #### C MP, CBCA ####[facility] ([id number])[address] [place] [address] 43113 Eosinophils/100 WBC (Bld) 1.5 % Normal [facility] Comment on above: Performed By: #### C MP, CBCA ####[facility] ([id number])[address] [place] [address] 46021 Erythrocyte distribution width (RBC) [Ratio] 17.8 % High 11.5-15.0 [facility] Comment on above: Performed By: #### C MP, CBCA ####[facility] ([id number])[address] [place] [address] 14605 Hematocrit (Bld) [Volume fraction] 37.4 % Low 39-49 [facility] Comment on above: Performed By: #### C MP, CBCA ####[facility] ([id number])[address] [place] [address] 48991 Hemoglobin (Bld) [Mass/Vol] 12.5 g/dL Low 13.0-17.0 [facility] Comment on above: Performed By: #### C MP, CBCA ####[facility] ([id number])[address] [place] [address] 74937 Lymphocytes (Bld) [#/Vol] 1.6 10*3/uL Normal 1.0-3.5 [facility] Comment on above: Performed By: #### C MP, CBCA ####[facility] ([id number])[address] [place] [address] 10140 Lymphocytes/100 WBC (Bld) 23.8 % Normal [facility] Comment on above: Performed By: #### C MP, CBCA ####[facility] ([id number])[address] [place] [address] 11692 MCH (RBC) [Entitic mass] 30.0 pg Normal 27-34 [facility] Comment on above: Performed By: #### C MP, CBCA ####[facility] ([id number])[address] [place] [address] 88998 MCHC (RBC) [Mass/Vol] 33.3 g/dL Normal 32-36 [facility] Comment on above: Performed By: #### C MP, CBCA ####[facility] ([id number])[address] [place] [address] 14198 MCV (RBC) [Entitic vol] 90 fL Normal 80-100 [facility] Comment on above: Performed By: #### C MP, CBCA ####[facility] ([id number])[address] [place] [address] 52845 Monocytes (Bld) [#/Vol] 0.7 10*3/uL Normal 0-0.9 [facility] Comment on above: Performed By: #### C MP, CBCA ####[facility] ([id number])[address] [place] [address] 46023 Monocytes/100 WBC (Bld) 9.8 % Normal [facility] Comment on above: Performed By: #### C MP, CBCA ####[facility] ([id number])[address] [place] [address] 40257 Neutrophils/100 WBC (Bld) 64.0 % Normal [facility] Comment on above: Performed By: #### C MP, CBCA ####[facility] ([id number])[address] [place] [address] 82519 Platelet mean volume (Bld) [Entitic vol] 8.2 fL Normal 7-12 [facility] Comment on above: Performed By: #### C MP, CBCA ####[facility] ([id number])[address] [place] [address] 87962 Platelets (Bld) [#/Vol] 265 10*3/uL Normal 150-450 [facility] Comment on above: Performed By: #### C MP, CBCA ####[facility] ([id number])[address] [place] [address] 72789 RBC COUNT 4.15 X10E12/L Normal 4.10-5.70 [facility] Comment on above: Performed By: #### C MP, CBCA ####[facility] ([id number])[address] [place] [address] 35751 WBC (Bld) [#/Vol] 6.7 10*3/uL Normal 4.0-11.0 [facility] Comment on above: Performed By: #### C MP, CBCA ####[facility] ([id number])[address] [place] [address] 46424 CBC auto differentialon 10-24 Basophils (Bld) [#/Vol] 0.1 10*3/uL [facility] Basophils/100 WBC (Bld) 0.9 % [facility] Eosinophils (Bld) [#/Vol] 0.1 10*3/uL [facility] Eosinophils/100 WBC (Bld) 1.5 % [facility] Erythrocyte distribution width (RBC) [Ratio] 17.8 % High 11.5 - 15.0 % [facility] Hematocrit (Bld) [Volume fraction] 37.4 % Low 39 - 49 % [facility] Hemoglobin (Bld) [Mass/Vol] 12.5 g/dL Low 13.0 - 17.0 g/dL [facility] Lymphocytes (Bld) [#/Vol] 1.6 10*3/uL [facility] Lymphocytes/100 WBC (Bld) 23.8 % [facility] MCH (RBC) [Entitic mass] 30.0 pg 27 - 34 pg [facility] MCHC (RBC) [Mass/Vol] 33.3 g/dL 32 - 36 g/dL [facility] MCV (RBC) [Entitic vol] 90 fL 80 - 100 fL [facility] Monocytes (Bld) [#/Vol] 0.7 10*3/uL [facility] Monocytes/100 WBC (Bld) 9.8 % [facility] Neutrophils (Bld) [#/Vol] 4.3 10*3/uL [facility] Neutrophils/100 WBC (Bld) 64.0 % [facility] Platelet mean volume (Bld) [Entitic vol] 8.2 fL 7 - 12 fL [facility] Platelets (Bld) [#/Vol] 265 10*3/uL [facility] RBC (Bld) [#/Vol] 4.15 10*6/uL [facility] WBC corrected for nucl RBC Auto (Bld) [#/Vol] 6.7 [facility] COMPREHENSIVE METABOLIC PANE Adam 11-21-2023 Albumin [Mass/Vol] 3.9 g/dL Normal 3.2-5.3 [facility] Comment on above: Performed By: #### C RADHA CBCA ####[facility] ([id number])[address] [place] [address] 51012 ALP [Catalytic activity/Vol] 41 U/L Normal 39-130 [facility] Comment on above: Performed By: #### C RADHA CBCA ####[facility] ([id number])[address] [place] [address] 03749 ALT [Catalytic activity/Vol] 41 U/L High 0-40 [facility] Comment on above: Performed By: #### C RADHA CBCA ####[facility] ([id number])[address] [place] [address] 91452 Anion gap [Moles/Vol] 8 mmol/L Normal 5-15 [facility] Comment on above: Performed By: #### C RADHA CBCA ####[facility] ([id number])[address] [place] [address] 69378 AST [Catalytic activity/Vol] 33 U/L Normal 0-41 [facility] Comment on above: Performed By: #### C RADHA CBCDoretha ####[facility] ([id number])[address] [place] [address] 61865 Bilirubin [Mass/Vol] 0.8 mg/dL Normal 0.3-1.2 [facility] Comment on above: Performed By: #### C RADHA CBCA ####[facility] ([id number])[address] [place] [address] 81685 Calcium [Mass/Vol] 9.2 mg/dL Normal 8.5-10.5 [facility] Comment on above: Performed By: #### C BYRON GARCIA ####[facility] ([id number])[address] [place] [address] 09622 Chloride [Moles/Vol] 103 mmol/L Normal 98-109 [facility] Comment on above: Performed By: #### C RADHA CBCDoretha ####[facility] ([id number])[address] [place] [address] 70762 CO2 [Moles/Vol] 23 mmol/L Normal 22-32 [facility] Comment on above: Performed By: #### C BYRON GARCIA ####[facility] ([id number])[address] [place] [address] 91699 Creatinine [Mass/Vol] 1.02 mg/dL Normal 0.70-1.20 [facility] Comment on above: Result Comment: METH OD TRACEABLE TO IDMS STANDARD Performed By: #### C RADHA CBCDoretha ####[facility] ([id number])[address] [place] [address] [place] [address] eGFR (CKD-EPI) NON-RACE DEPENDENT >90 Normal >59 [facility] Comment on above: Result Comment: Repo rted eGFR is based on theCKD-EPI 2020 equation that doesnot use a race coefficient. Performed By: #### C RADHA, CBCA ####[facility] ([id number])[address] [place] [address] 55049 Glucose [Mass/Vol] 115 mg/dL High 65-99 [facility] Comment on above: Performed By: #### C RADHA, CBCA ####[facility] ([id number])[address] [place] [address] 46973 Potassium [Moles/Vol] 4.0 mmol/L Normal 3.5-5.0 [facility] Comment on above: Performed By: #### C RADHA, CBCA ####[facility] ([id number])[address] [place] [address] 41262 Protein [Mass/Vol] 7.4 g/dL Normal 6.0-8.0 [facility] Comment on above: Performed By: #### C RADHA, CBCA ####[facility] ([id number])[address] [place] [address] 92241 Sodium [Moles/Vol] 134 mmol/L Normal 134-146 [facility] Comment on above: Performed By: #### C RADHA, CBCA ####[facility] ([id number])[address] [place] [address] 99940 Urea nitrogen [Mass/Vol] 9 mg/dL Normal 5-23 [facility] Comment on above: Performed By: #### C RADHA, CBCA ####[facility] ([id number])[address] [place] [address], [place] [address] Comprehensive metabolic pane adam 11-21-2023 Albumin [Mass/Vol] 3.9 g/dL 3.2 - 5.3 g/dL [facility] ALP [Catalytic activity/Vol] 41 U/L 39 - 130 U/L [facility] ALT No additional P-5'-P [Catalytic activity/Vol] 41 U/L High 0 - 40 U/L [facility] Anion gap [Moles/Vol] 8 mmol/L 5 - 15 mmol/L [facility] AST [Catalytic activity/Vol] 33 U/L 0 - 41 U/L [facility] Bilirubin [Mass/Vol] 0.8 mg/dL 0.3 - 1.2 mg/dL [facility] Calcium [Mass/Vol] 9.2 mg/dL 8.5 - 10. 5 mg/dL [facility] Chloride [Moles/Vol] 103 mmol/L 98 - 109 mmol/L [facility] CO2 [Moles/Vol] 23 mmol/L 22 - 32 mmol/L [facility] Creatinine [Mass/Vol] 1.02 mg/dL 0.70 - 1.20 mg/dL [facility] Comment on above: METHOD TRACEABLE TO [facility] STANDARD eGFR (CKD-EPI)non-race dependent - PINF [facility] Comment on above: Reported eGFR is based on the CKD-EPI 2020 equation that does not use a race coefficient. Glucose [Mass/Vol] 115 mg/dL High 65 - 99 mg/dL [facility] Potassium [Moles/Vol] 4.0 mmol/L 3.5 - 5.0 mmol/L [facility] Protein [Mass/Vol] 7.4 g/dL 6.0 - 8.0 g/dL [facility] Sodium [Moles/Vol] 134 mmol/L 134 - 146 mmol/L [facility] Urea nitrogen [Mass/Vol] 9 mg/dL 5 - 23 mg/dL [facility] No Panel Informationon 11-20 Interpretation and review of laboratory results Abnormal [facility] 36on 11-14-2023 36 Discharge date: 11/10 Call date: 11/14/23 Spoke with: patient HF Follow-up date: 11/14/23 Med reconciliation completed: no Questions/Concerns: Home meds were not reviewed. Pt was on his way to his follow up appt at the [facility]. Pt stated he needs to get a scale to monitor daily weights. Pt is monitoring BP and HR and stated his BP has been good and he his HR has been around 80. No questions or concerns at this time. [facility] Documentationon 11-14-2023 Documentation [id number] Arvin Julien 1980 M Date Provider Department Center 11/14/2023 63639-TOCMICTELIZABETH RUFF [facility] [place] [facility] Family History Family history unknown: Yes Reason for Visit and Comments: HF inpatient satisfaction survey sent. [Other] [facility] Follow-Upon 11-14-2023 Follow-Up [id number] Arvin Julien 1980 M [facility] Provider Department Center 11/14/2023 IZZY AMATO [facility]. Family History Family history unknown: Yes Level of Service:25689 PA OFFICE/OUTPATIENT ESTABLISHED MOD MDM 30 MIN [facility] Telephoneon 11-14-2023 Telephone [phone] Arvin Julien 1980 M Date Provider Department [place] 11/14/202395729-ZMPEEBFELIZABETH RUFF [facility] [place] [facility] Family History Family history unknown: Yes Reason for Visit and Comments: HF post discharge call. [Other] [facility] 36on 11-12-2023 36 The patient wasn't available but I talked to his mom and she said they were happy with their experience at [facility]. She said everyone was nice and not one person was crappy or unpleasant. [facility] Telephoneon 11-12-2023 Telephone [phone] Arvin Julien 1980 M Provider Department [place] 11/12/2023 GIAN CHATMAN [facility] Medical C Family History Family history unknown: Yes Reason for Visit and Comments: Hospital Follow-up [832] [facility] 30on 11-11-2023 30 The patient is Moder ately Stable - Low risk of patient condition declining or worsening The patient's goals for the shift include comfort, rest The clinical goals for the shift include VSS, comfort, rest, safety Over the shift, the patient did make progress toward the following goals. Problem: Pain - Adult Goal: Verbalizes/displays adequate comfort level or baseline comfort level Outcome: Progressing Problem: Safety - Adult Goal: Free from fall injury Outcome: Progressing Problem: Discharge Planning Goal: Discharge to home or other facility with appropriate resources Outcome: Progressing Problem: Chronic Conditions and Co-morbidities Goal: Patient's chronic conditions and co-morbidity symptoms are monitored and maintained or improved Outcome: Progressing Problem: Pain Goal: LTG-Verbalize decrease in pain Outcome: Progressing Goal: LTG-Demostrate that the pain does not impair ADLs Outcome: Progressing Goal: STG-Pt will verbalize decreased discomfort Outcome: Progressing Normal [facility] BASIC METABOLIC PANELon 09-2 -2023 Anion gap [Moles/Vol] 12 mmol/L Normal 7-20 [facility] Comment on above: Performed By: #### L [id number] ####[facility] ([facility]AKER)[address] [place] [address] Calcium [Mass/Vol] 9.3 mg/dL Normal 8.6-10.3 [facility] Comment on above: Performed By: #### L [id number] ####[facility] (BEAKER)[address] [place] [address] Chloride [Moles/Vol] 101 mmol/L Normal 98-107 [facility] Comment on above: Performed By: #### L [id number] ####[facility] (BEAKER)[address] [place] [address] CO2 [Moles/Vol] 31 mmol/L Normal 21-31 [facility] Comment on above: Performed By: #### L [id number] ####[facility] (BEAKER)[address] [place] [address] Creatinine [Mass/Vol] 0.90 mg/dL Normal 0.70-1.30 [facility] Comment on above: Performed By: #### L [id number] ####[facility] (BEAKER)[address] [facility] [address] GLOMERULAR FILTRATION RATE ML/MIN/1.73 SQ M.PREDICTED 107.3 mL/min/1.73m*2 Normal >60.0 [facility] Comment on above: Result Comment: The [facility]???s estimated glomerular filtration rate (eGFR) will no longer include consideration of race in its calculation. The National Kidney Foundation???s eGFR Task Force developed new recommendations for the estimation of the glomerular filtration rate in the [place] They recommend immediate implementation of the new equation refit without the race variable in all laboratories because the calculation does not include race. In addition to not including race in the calculation and reporting, it included diversity in its development, and has acceptable performance characteristics and potential consequences that do not disproportionately affect any one group of individuals. Performed By: #### L [id number] ####[facility] ([facility])[address] [place] [address] Glucose [Mass/Vol] 107 mg/dL High 70-100 [facility] Comment on above: Performed By: #### L [id number] ####[facility] ([facility])[address] [place] [address] Potassium [Moles/Vol] 4.0 mmol/L Normal 3.5-5.1 [facility] Comment on above: Performed By: #### L [id number] ####[facility] ([facility])[address] [place] [address] Sodium [Moles/Vol] 140 mmol/L Normal 136-145 [facility] Comment on above: Performed By: #### L [id number] ####[facility] ([facility])[address] [facility] [address] Urea nitrogen [Mass/Vol] 13 mg/dL Normal 7-25 [facility] Comment on above: Performed By: #### L [id number] ####[facility] ([facility])[address] [place] [address] UREA NITROGEN/CREATININE (MASS RATIO) IN SER/PLAS 14.4 Normal [facility] Comment on above: Performed By: #### L [id number] ####[facility] ([facility])[address] [facility] [address] CBC WITH AUTO DIFFERENTIALon 11-11-2023 Basophils (Bld) [#/Vol] 0.06 10*3/uL Normal 0.00-0.20 [facility] Comment on above: Performed By: #### L [id number] ####[facility] (BEAKER)[address] [place] [address] Basophils/100 WBC (Bld) 1.2 % High 0.0-1.0 [facility] Comment on above: Performed By: #### L [id number] ####[facility] ([facility]AKER)[address] [place] [address] Eosinophils (Bld) [#/Vol] 0.02 10*3/uL Normal 0.00-0.50 [facility] Comment on above: Performed By: #### L [id number] ####[facility] (BEAKER)[address] [place] [address] Eosinophils/100 WBC (Bld) 0.4 % Normal 0.0-6.0 [facility] Comment on above: Performed By: #### L [id number] ####[facility] (BEAKER)[address] [place] [address] Erythrocyte distribution width (RBC) [Ratio] 16.3 % High 11.5-15.0 [facility] Comment on above: Performed By: #### L [id number] ####[facility] (BEAKER)[address] [place] [address] ERYTHROCYTE MEAN CORPUSCULAR HEMOGLOBIN CONCENTRATION (G/DL) BY AUTOMATED 32.2 g/dL Normal 32.0-35.0 [facility] Comment on above: Performed By: #### L [id number] ####[facility] (BEAKER)[address] [place] [address] Hematocrit (Bld) [Volume fraction] 31.1 % Low 39.0-55.0 [facility] Comment on above: Performed By: #### L [id number] ####[facility] (BEAKER)[address] [place] [address] Hemoglobin (Bld) [Mass/Vol] 10.0 g/dL Low 13.0-17.0 [facility] Comment on above: Performed By: #### L [id number] ####[facility] (BEAKER)[address] [place] [address] Immature granulocytes (Bld) [#/Vol] 0.23 10*3/uL High 0.00-0.20 [facility] Comment on above: Performed By: #### L [id number] ####[facility] ([facility]AKER)[address] [place] [address] Immature granulocytes/100 WBC (Bld) 4.5 % High 0.0-1.0 [facility] Comment on above: Performed By: #### L [id number] ####[facility] (BEAKER)[address] [place] [address] Lymphocytes (Bld) [#/Vol] 1.47 10*3/uL Normal 1.20-4.00 [facility] Comment on above: Performed By: #### L [id number] ####[facility] (BEAKER)[address] [place] [address] Lymphocytes/100 WBC (Bld) 29.1 % Normal 20.0-45.0 [facility] Comment on above: Performed By: #### L [id number] ####[facility] (BEAKER)[address] [place] [address] MCH (RBC) [Entitic mass] 30.0 pg Normal 27.0-33.0 [facility] Comment on above: Performed By: #### L [id number] ####[facility] (BEAKER)[address] [place] [address] MCV (RBC) [Entitic vol] 93.4 fL Normal 82.0-98.0 [facility] Comment on above: Performed By: #### L [id number] ####[facility] (BEAKER)[address] [place] [address] Monocytes (Bld) [#/Vol] 0.75 10*3/uL Normal 0.10-1.00 [facility] Comment on above: Performed By: #### L [id number] ####[facility] (BEAKER)[address] [place] [address] Monocytes/100 WBC (Bld) 14.8 % High 5.0-12.0 [facility] Comment on above: Performed By: #### L [id number] ####[facility] ([facility])[address] [place] [address] Neutrophils (Bld) [#/Vol] 2.53 10*3/uL Normal 1.60-7.60 [facility] Comment on above: Performed By: #### L [id number] ####[facility] ([facility])[address] [place] [address] Neutrophils/100 WBC (Bld) 50.0 % Normal 40.0-72.0 [facility] Comment on above: Performed By: #### L [id number] ####[facility] ([facility])[address] [place] [address] NRBC (PER 100 WBCS) BY AUTOMATED COUNT 0.0 % Normal 0 [facility] Comment on above: Performed By: #### L [id number] ####[facility] ([facility])[address] [place] [address] PLATELETS (10*3/UL) IN BLOOD AUTOMATED COUNT 248 10*3/uL Normal 150-400 [facility] Comment on above: Performed By: #### L [id number] ####[facility] ([facility])[address] [address] RBC (Bld) [#/Vol] 3.33 10*6/uL Low 4.20-5.70 [facility] Comment on above: Performed By: #### L [id number] ####[facility] ([facility])[address] [address] WBC (Bld) [#/Vol] 5.06 10*3/uL Normal 4.00-10.60 [facility] Comment on above: Performed By: #### L [id number] ####[facility] ([facility])[address] [place] [address] MAGNESIUMon 11-11-2023 Magnesium [Mass/Vol] 1.8 mg/dL Low 1.9-2.7 [facility] Comment on above: Performed By: #### L [id number] ####[facility] (DAISHA)[address] [place] [address] NURSNOTEon 11-11-2023 NURSNOTE Chest port de-access ed prior to discharge by lead nurse Megan on 4CD. Normal [facility] 30on 11-10-2023 30 The patient is Moder ately Stable - Low risk of patient condition declining or worsening The patient's goals for the shift include comfort, rest The clinical goals for the shift include VSS, comfort, rest, safety Over the shift, the patient did not make progress toward the following goals. Barriers to progression include amiodarone drip. Recommendations to address these barriers include discontinue amiodarone drip. Problem: Pain - Adult Goal: Verbalizes/displays adequate comfort level or baseline comfort level Outcome: Progressing Flowsheets (Taken 11/10/20232333) Verbalizes/displays adequate comfort level or baseline comfort level: Encourage patient to monitor pain and request assistance Assess pain using appropriate pain scale Administer analgesics based on type and severity of pain and evaluate response Implement non-pharmacological measures as appropriate and evaluate response Consider cultural and social influences on pain and pain management Notify Licensed Independent Practitioner if interventions unsuccessful or patient reports new pain Problem: Safety - Adult Goal: Free from fall injury Outcome: Progressing Flowsheets (Taken 11/10/20232333) Free from fall injury: Assess patient frequently for physical needs Identify cognitive and physical deficits and behaviors that affect risk of falls [place] fall precautions as indicated by assessment Educate patient/family on patient safety, including physical limitations Instruct patient to call for assistance with activity based on assessment Modify environment to reduce risk of injury Problem: Discharge Planning Goal: Discharge to home or other facility with appropriate resources Outcome: Progressing Flowsheets (Taken 11/10/20232333) Discharge to home or other facility with appropriate resources: Identify barriers to discharge with patient and caregiver Arrange for needed discharge resources and transportation as appropriate Identify discharge learning needs (meds, wound care, etc) Refer to discharge planning if patient needs post-hospital services based on physician order or complex needs related to functional status, cognitive ability or social support system Problem: Chronic Conditions and Co-morbidities Goal: Patient's chronic conditions and co-morbidity symptoms are monitored and maintained or improved Outcome: Progressing Flowsheets (Taken 11/10/2023 2334) Care Plan - Patient's Chronic Conditions and Co-Morbidity Symptoms are Monitored and Maintained or Improved: Monitor and assess patient's chronic conditions and comorbid symptoms for stability, deterioration, or improvement Collaborate with multidisciplinary team to address chronic and comorbid conditions and prevent exacerbation or deterioration Update acute care plan with appropriate goals if chronic or comorbid symptoms are exacerbated and prevent overall improvement and discharge Problem: Pain Goal: LTG-Verbalize decrease in pain Outcome: Progressing Problem: Pain Goal: LTG-Demostrate that the pain does not impair ADLs Outcome: Progressing Normal [facility] 30 The patient is Moder ately Stable - Low risk of patient condition declining or worsening The patient's goals for the shift include sleep The clinical goals for the shift include vss Over the shift, the patient did make progress toward the following goals. Problem: Pain - Adult Goal: Verbalizes/displays adequate comfort level or baseline comfort level Outcome: Progressing Problem: Safety - Adult Goal: Free from fall injury Outcome: Progressing Problem: Discharge Planning Goal: Discharge to home or other facility with appropriate resources Outcome: Progressing Problem: Chronic Conditions and Co-morbidities Goal: Patient's chronic conditions and co-morbidity symptoms are monitored and maintained or improved Outcome: Progressing Problem: Pain Goal: LTG-Verbalize decrease in pain Outcome: Progressing Goal: LTG-Demostrate that the pain does not impair ADLs Outcome: Progressing Goal: STG-Pt will verbalize decreased discomfort Outcome: Progressing Normal [facility] 30 Daily Case Managemen t Update Multidisciplinary rounds have been completed. Barriers to Discharge: 11/09: +amio gtt. MIA cardioversion planned for today. Stage IV lung CA. L chest port for chemo. BC from 11/04 NGTD. Mag 1.7 From home. -TS Diet: Dietary Orders (From admission, onward) Start Ordered 11/10/23 0001 Diet NPO Diet effective midnight Question: Reason for NPO: Answer: Operation/Procedure 11/09/23 1538 11/08/23 1755 Special Kitchen Request Once Comments: 2nd entree chicken cheese quesadilla with sour cream, salsa, coke 11/08/23 1756 Physician Expected Discharge Date: 11/11/2023 Discharge Delays: PT Six Click Score: 24 OT Six Click Score: PT Recommendations: OT Recommendations: New Consults: Normal [facility] ANESon 11-10-2023 ANES Patient: Arvin Julien Choose an anesthesia record to view details Clinical information reviewed: Allergies Meds Physical Exam Airway Mallampati: III TM distance: >3 FB Neck ROM: full Cardiovascular Rhythm: irregular Rate: normal (-) murmur, peripheral edema Dental Pulmonary Breath sounds clear to auscultation Abdominal - normal exam Anesthesia Plan ASA 4 other (Conscious sedation.) Additional Equipment Requests Normal [facility] BASIC METABOLIC PANELon 10-22 Anion gap [Moles/Vol] 11 mmol/L Normal 7-20 [facility] Comment on above: Performed By: #### L [id number] #### [facility] ([facility]) [address] [place] [address] Calcium [Mass/Vol] 9.2 mg/dL Normal 8.6-10.3 [facility] Comment on above: Performed By: #### L [id number] #### [facility] ([facility]) [address] [place] [address] Chloride [Moles/Vol] 101 mmol/L Normal 98-107 [facility] Comment on above: Performed By: #### L [id number] #### [facility] ([facility]) [address] [place] [address] CO2 [Moles/Vol] 29 mmol/L Normal 21-31 [facility] Comment on above: Performed By: #### L [id number] #### [facility] ([facility]) [address] [place] [address] Creatinine [Mass/Vol] 0.89 mg/dL Normal 0.70-1.30 [facility] Comment on above: Performed By: #### L [id number] #### [facility] ([facility]) [address] [place] [address] GLOMERULAR FILTRATION RATE ML/MIN/1.73 SQ M.PREDICTED 107.7 mL/min/1.73m*2 Normal >60.0 [facility] Comment on above: Result Comment: The [facility]???s estimated glomerular filtration rate (eGFR) will no longer include consideration of race in its calculation. The National Kidney Foundation???s eGFR Task Force developed new recommendations for the estimation of the glomerular filtration rate in the [place] They recommend immediate implementation of the new equation refit without the race variable in all laboratories because the calculation does not include race. In addition to not including race in the calculation and reporting, it included diversity in its development, and has acceptable performance characteristics and potential consequences that do not disproportionately affect any one group of individuals. Performed By: #### L [id number] #### [facility] ([facility]) [address] [place] [address] Glucose [Mass/Vol] 113 mg/dL High 70-100 [facility] Comment on above: Performed By: #### L [id number] #### [facility] ([facility]) [address] [place] [address] Potassium [Moles/Vol] 4.0 mmol/L Normal 3.5-5.1 [facility] Comment on above: Performed By: #### L [id number] #### [facility] ([facility]) [address] [place] [address] Sodium [Moles/Vol] 137 mmol/L Normal 136-145 [facility] Comment on above: Performed By: #### L [id number] #### [facility] ([facility]) [address] [place] [address] Urea nitrogen [Mass/Vol] 12 mg/dL Normal 7-25 [facility] Comment on above: Performed By: #### L [id number] #### [facility] ([facility]) [address] [place] [address] UREA NITROGEN/CREATININE (MASS RATIO) IN SER/PLAS 13.5 Normal [facility] Comment on above: Performed By: #### L [id number] #### [facility] ([facility]) [address] [place] [address] CBC WITH AUTO DIFFERENTIALon 11-10-2023 Erythrocyte distribution width (RBC) [Ratio] 16.2 % High 11.5-15.0 [facility] Comment on above: Performed By: #### L [id number] #### [facility] ([facility]) [address] [place] [address] ERYTHROCYTE MEAN CORPUSCULAR HEMOGLOBIN CONCENTRATION (G/DL) BY AUTOMATED 31.9 g/dL Low 32.0-35.0 [facility] Comment on above: Performed By: #### L [id number] #### [facility] ([facility]) [address] [place] [address] Hematocrit (Bld) [Volume fraction] 32.3 % Low 39.0-55.0 [facility] Comment on above: Performed By: #### L [id number] #### [facility] ([facility]) [address] [place] [address] Hemoglobin (Bld) [Mass/Vol] 10.3 g/dL Low 13.0-17.0 [facility] Comment on above: Performed By: #### L [id number] #### [facility] ([facility]) [address] [place] [address] MCH (RBC) [Entitic mass] 29.7 pg Normal 27.0-33.0 [facility] Comment on above: Performed By: #### L [id number] #### [facility] ([facility]) [address] [place] [address] MCV (RBC) [Entitic vol] 93.1 fL Normal 82.0-98.0 [facility] Comment on above: Performed By: #### L [id number] #### [facility] ([facility]) [address] [place] [address] NRBC (PER 100 WBCS) BY AUTOMATED COUNT 0.3 % High 0 [facility] Comment on above: Performed By: #### L [id number] #### [facility] ([facility]) [address] [place] [address] PLATELETS (10*3/UL) IN BLOOD AUTOMATED COUNT 253 10*3/uL Normal 150-400 [facility] Comment on above: Performed By: #### L [id number] #### [facility] ([facility]) [address] [place] [address] RBC (Bld) [#/Vol] 3.47 10*6/uL Low 4.20-5.70 [facility] Comment on above: Performed By: #### L [id number] #### [facility] ([facility]) [address] [place] [address] WBC (Bld) [#/Vol] 6.25 10*3/uL Normal 4.00-10.60 [facility] Comment on above: Performed By: #### L [id number] #### [facility] ([facility]) [address] [place] [address] HPon 11-10-2023 HP ------- Attestation signed by Sukhwinder Schafer MD at 11/10/2023 8:48 PM I personally saw and examined the patient on the same date of service as resident/fellow Dr Dinah Quarles. I discussed the findings and therapeutic plan with the resident/fellow Dr Dinah Quarles. I agree with the documentation, except for any edits/updates below. Teaching Physician's Revisions: None Sukhwinder Schafer MD, [facility] H&P reviewed. The patient was examined and there are no changes to the H&P. Will proceed with MIA to rule out JANE thrombus prior to cardioversion. Dinah Quarles MD Development Planner - PGY6 [facility] MAGNESIUMon 11-10-2023 Magnesium [Mass/Vol] 1.7 mg/dL Low 1.9-2.7 [facility] Comment on above: Performed By: #### L [id number] ####[facility] ([facility])[address] [address] MANUAL DIFFERENTIALon 2023 BASOPHILS (10*3/UL) IN BLOOD BY CALCULATION 0.04 10*3/uL Normal 0.00-0.20 [facility] Comment on above: Performed By: #### L [id number] #### [facility] ([facility]) [address] [place] [address] BASOPHILS/100 LEUKOCYTES IN BLOOD BY AUTOMATED COUNT 0.7 % Normal 0.0-1.0 [facility] Comment on above: Performed By: #### L [id number] #### [facility] ([facility]) [address] [place] [address] EOSINOPHILS (10*3/UL) IN BLOOD BY CALCULATION 0.00 10*3/uL Normal 0.00-0.50 [facility] Comment on above: Performed By: #### L [id number] #### [facility] ([facility]) [address] [place] [address] EOSINOPHILS/100 LEUKOCYTES IN BLOOD BY AUTOMATED COUNT 0.0 % Normal 0.0-6.0 [facility] Comment on above: Performed By: #### L [id number] #### [facility] ([facility]) [address] [place] [address] LYMPHOCYTES (10*3/UL) IN BLOOD BY CALCULATION 1.54 10*3/uL Normal 1.20-4.00 [facility] Comment on above: Performed By: #### L [id number] #### [facility] ([facility]) [address] [place] [address] LYMPHOCYTES/100 LEUKOCYTES IN BLOOD BY AUTOMATED COUNT 24.6 % Normal 20.0-45.0 [facility] Comment on above: Performed By: #### L [id number] #### [facility] ([facility]) [address] [place] [address] METAMYELOCYTES (10*3/UL) IN BLOOD BY CALCULATION 0.04 10*3/uL High 0.00 [facility] Comment on above: Performed By: #### L [id number] #### [facility] ([facility]) [address] [place] [address] METAMYELOCYTES/100 LEUKOCYTES IN BLOOD CELLAVISION 0.7 % High 0.0-0.0 [facility] Comment on above: Performed By: #### L [id number] #### [facility] ([facility]) [address] [place] [address] MONOCYTES (10*3/UL) IN BLOOD BY CALCUATION 0.50 10*3/uL Normal 0.10-1.00 [facility] Comment on above: Performed By: #### L [id number] #### [facility] ([facility]) [address] [place] [address] MONOCYTES/100 LEUKOCYTES IN BLOOD BY AUTOMATED COUNT 8.0 % Normal 5.0-12.0 [facility] Comment on above: Performed By: #### L [id number] #### [facility] ([facility]) [address] [place] [address] MYELOCYTES (10*3/UL) IN BLOOD BY CALCULATION 0.17 10*3/uL High 0.00 [facility] Comment on above: Performed By: #### L [id number] #### [facility] ([facility]) [address] [place] [address] MYELOCYTES/100 LEUKOCYTES IN BLOOD CELLAVISION 2.7 % High 0.0-0.0 [facility] Comment on above: Performed By: #### L [id number] #### [facility] ([facility]) [address] [place] [address] NEUTROPHILS (10*3/UL) IN BLOOD BY CALCULATION 4.0 10*3/uL Normal 1.6-7.6 [facility] Comment on above: Performed By: #### L [id number] #### [facility] ([facility]) [address] [place] [address] NEUTROPHILS/100 LEUKOCYTES IN BLOOD BY AUTOMATED COUNT 63.3 % Normal 40.0-72.0 [facility] Comment on above: Performed By: #### L [id number] #### [facility] ([facility]) [address] [place] [address] NUCLEATED RED BLOOD CELLS IN BLOOD BY LIGHT MICROSCOPY Present Normal [facility] Comment on above: Performed By: #### L [id number] #### [facility] ([facility]) [address] [place] [address] PLASMA CELLS/100 LEUKOCYTES IN BLOOD 0 % Normal 0 [facility] Comment on above: Performed By: #### L [id number] #### [facility] ([facility]) [address] [place] [address] VARIANT LYMPHOCYTES (10*3/UL) IN BLOOD BY CALCULATION 0.00 10*3/uL Normal 0.00 [facility] Comment on above: Performed By: #### L [id number] #### [facility] ([facility]) [address] [place] [address] VARIANT LYMPHOCYTES/100 LEUKOCYTES IN BLOOD CELLAVISION 0.0 % Normal 0.0-0.0 [facility] Comment on above: Performed By: #### L [id number] #### [facility] ([facility]) [address] [place] [address] NURSNOTEon 11-10-2023 NURSNOTE Fourth floor charge nurse de-accessed and accessed pt left anterior chest port. Acting Professor was asked to come in the room to give RN flushes. Pt port at that time did aspirate blood. Charge nurse aware. [facility] NURSNOTE Nurse spoke with FELICIA Sanchez due to pt chest port not aspirating. Daniel put in an order for heparin flush. Notified charge nurse and was made aware that isn't policy. De-access then re-access and if that doesn't work then next step would be to declot with cathflo. Daniel was adamant about doing the heparin flush. RN trained to access ports is currently on the unit to de-access and re-access port per policy of needing to re-access after 7 days. Charge nurse updated and added to epic chat with Daniel. [facility] NURSNOTE Report given to Rebecca viera RN from [facility] Any medications or safety alerts were reviewed. Any pending diagnostics and notifications were also reviewed, as well as any safety concerns or issues, abnormal labs, abnormal imagining, and abnormal assessment findings. Questions were answered. [facility] 30on 11-09-2023 30 The patient is Moder ately Stable - Low risk of patient condition declining or worsening The patient's goals for the shift include sleep The clinical goals for the shift include vss Problem: Pain - Adult Goal: Verbalizes/displays adequate comfort level or baseline comfort level Outcome: Progressing Problem: Safety - Adult Goal: Free from fall injury Outcome: Progressing Flowsheets (Taken 11/09/20231954) Free from fall injury: Assess patient frequently for physical needs Identify cognitive and physical deficits and behaviors that affect risk of falls [place] fall precautions as indicated by assessment Educate patient/family on patient safety, including physical limitations Instruct patient to call for assistance with activity based on assessment Problem: Discharge Planning Goal: Discharge to home or other facility with appropriate resources Outcome: Progressing Flowsheets (Taken 11/09/20231954) Discharge to home or other facility with appropriate resources: Identify barriers to discharge with patient and caregiver Arrange for needed discharge resources and transportation as appropriate Identify discharge learning needs (meds, wound care, etc) Refer to discharge planning if patient needs post-hospital services based on physician order or complex needs related to functional status, cognitive ability or social support system Problem: Chronic Conditions and Co-morbidities Goal: Patient's chronic conditions and co-morbidity symptoms are monitored and maintained or improved Outcome: Progressing Flowsheets (Taken 11/09/20231954) Care Plan - Patient's Chronic Conditions and Co-Morbidity Symptoms are Monitored and Maintained or Improved: Monitor and assess patient's chronic conditions and comorbid symptoms for stability, deterioration, or improvement Collaborate with multidisciplinary team to address chronic and comorbid conditions and prevent exacerbation or deterioration Update acute care plan with appropriate goals if chronic or comorbid symptoms are exacerbated and prevent overall improvement and discharge [facility] 30 The patient is Moder ately Stable - Low risk of patient condition declining or worsening The patient's goals for the shift include sleep The clinical goals for the shift include vss Over the shift, the patient did make progress toward the following goals. Problem: Pain - Adult Goal: Verbalizes/displays adequate comfort level or baseline comfort level Outcome: Progressing Problem: Safety - Adult Goal: Free from fall injury Outcome: Progressing Problem: Discharge Planning Goal: Discharge to home or other facility with appropriate resources Outcome: Progressing Problem: Chronic Conditions and Co-morbidities Goal: Patient's chronic conditions and co-morbidity symptoms are monitored and maintained or improved Outcome: Progressing Problem: Pain Goal: LTG-Verbalize decrease in pain Outcome: Progressing Goal: LTG-Demostrate that the pain does not impair ADLs Outcome: Progressing Goal: STG-Pt will verbalize decreased discomfort Outcome: Progressing Normal [facility] 30 Daily Case Managemen t Update Multidisciplinary rounds have been completed. Barriers to Discharge: Pending clinical course and improvement in clinical condition. Patient on IV Rocephin until 11/10/2023 for pneumonia. Patient on Amiodarone infusion and may offer DCCV once at least 0.5gms if rates cannot be controlled. Discharge plan is home when medically ready. Diet: Dietary Orders (From admission, onward) Start Ordered 11/08/231754 Special Kitchen Request Once Comments: 2nd entree chicken cheese quesadilla with sour cream, salsa, coke 11/08/23 1756 11/06/23 09 Regular Diet Diet effective now Question: Room Service? Answer: Yes 11/06/23905 Physician Expected Discharge Date: 11/11/2023 Discharge Delays: PT Six Click Score: 24 OT Six Click Score: PT Recommendations: OT Recommendations: New Consults: Normal [facility] B-TYPE NATRIURETIC PEPTIDEon 11-09-2023 Natriuretic peptide B (Bld) [Mass/Vol] 242 pg/mL High 0-100 [facility] Comment on above: Performed By: #### L [id number] ####[facility] ([facility])[address] [place] [address] BASIC METABOLIC PANELon 10-22 Anion gap [Moles/Vol] 11 mmol/L Normal 7-20 [facility] Comment on above: Performed By: #### L [id number] #### [facility] ([facility]) [address] [place] [address] Calcium [Mass/Vol] 9.2 mg/dL Normal 8.6-10.3 [facility] Comment on above: Performed By: #### L [id number] #### [facility] ([facility]) [address] [place] [address] Chloride [Moles/Vol] 103 mmol/L Normal 98-107 [facility] Comment on above: Performed By: #### L [id number] #### [facility] ([facility]) [address] [place] [address] CO2 [Moles/Vol] 28 mmol/L Normal 21-31 [facility] Comment on above: Performed By: #### L [id number] #### [facility] ([facility]) [address] [place] [address] Creatinine [Mass/Vol] 0.91 mg/dL Normal 0.70-1.30 [facility] Comment on above: Performed By: #### L [id number] #### [facility] ([facility]) [address] [place] [address] GLOMERULAR FILTRATION RATE ML/MIN/1.73 SQ M.PREDICTED 105.9 mL/min/1.73m*2 Normal >60.0 [facility] Comment on above: Result Comment: The [facility]???s estimated glomerular filtration rate (eGFR) will no longer include consideration of race in its calculation. The National Kidney Foundation???s eGFR Task Force developed new recommendations for the estimation of the glomerular filtration rate in the [place] They recommend immediate implementation of the new equation refit without the race variable in all laboratories because the calculation does not include race. In addition to not including race in the calculation and reporting, it included diversity in its development, and has acceptable performance characteristics and potential consequences that do not disproportionately affect any one group of individuals. Performed By: #### L [id number] #### [facility] ([facility]) [address] [place] [address] Glucose [Mass/Vol] 108 mg/dL High 70-100 [facility] Comment on above: Performed By: #### L [id number] #### [facility] ([facility]) [address] [place] [address] Potassium [Moles/Vol] 4.2 mmol/L Normal 3.5-5.1 [facility] Comment on above: Performed By: #### L [id number] #### [facility] ([facility]) [address] [place] [address] Sodium [Moles/Vol] 138 mmol/L Normal 136-145 [facility] Comment on above: Performed By: #### L [id number] #### [facility] ([facility]) [address] [place] [address] Urea nitrogen [Mass/Vol] 12 mg/dL Normal 7-25 [facility] Comment on above: Performed By: #### L [id number] #### [facility] ([facility]) [address] [place] [address] UREA NITROGEN/CREATININE (MASS RATIO) IN SER/PLAS 13.2 Normal [facility] Comment on above: Performed By: #### L [id number] #### [facility] ([facility]) [address] [place] [address] CBC WITH AUTO DIFFERENTIALon 11-09-2023 Erythrocyte distribution width (RBC) [Ratio] 16.3 % High 11.5-15.0 [facility] Comment on above: Performed By: #### L [id number] #### [facility] ([facility]) [address] [place] [address] ERYTHROCYTE MEAN CORPUSCULAR HEMOGLOBIN CONCENTRATION (G/DL) BY AUTOMATED 32.3 g/dL Normal 32.0-35.0 [facility] Comment on above: Performed By: #### L [id number] #### [facility] ([facility]) [address] [place] [address] Hematocrit (Bld) [Volume fraction] 31.9 % Low 39.0-55.0 [facility] Comment on above: Performed By: #### L [id number] #### [facility] [address] [place] [address] Hemoglobin (Bld) [Mass/Vol] 10.3 g/dL Low 13.0-17.0 [facility] Comment on above: Performed By: #### L [id number] #### [facility] ([facility]) [address] [place] [address] MCH (RBC) [Entitic mass] 29.4 pg Normal 27.0-33.0 [facility] Comment on above: Performed By: #### L [id number] #### [facility] ([facility]) [address] [place] [address] MCV (RBC) [Entitic vol] 91.1 fL Normal 82.0-98.0 [facility] Comment on above: Performed By: #### L [id number] #### [facility] ([facility]) [address] [place] [address] NRBC (PER 100 WBCS) BY AUTOMATED COUNT 0.0 % Normal 0 [facility] Comment on above: Performed By: #### L [id number] #### [facility] ([facility]) [address] [place] [address] PLATELETS (10*3/UL) IN BLOOD AUTOMATED COUNT 241 10*3/uL Normal 150-400 [facility] Comment on above: Performed By: #### L [id number] #### [facility] ([facility]) [address] [place] [address] RBC (Bld) [#/Vol] 3.50 10*6/uL Low 4.20-5.70 [facility] Comment on above: Performed By: #### L [id number] #### [facility] ([facility]) [address] [place] [address] WBC (Bld) [#/Vol] 5.52 10*3/uL Normal 4.00-10.60 [facility] Comment on above: Performed By: #### L [id number] #### [facility] ([facility]) [address] [place] [address] CONSULTon 11-09-2023 CONSULT [place] Electrophysiology Consult Note Reason for visit: Afib with uncontrolled VR HPI: Arvin Julien is a 43 y.o. year old with past medical history of lung cancer, persistent atrial fibrillation who had failed cardioversion in the past with? HfpEf was transferred from [facility] due to multifocal pneumonia and possible SIRS. There was he was observed to be in A-fib with RVR. He was treated initially with Cardizem which was discontinued continued after his echo showed low ejection fraction 35 to 40% and later switched to amiodarone IV infusion, his heart rate still in the 110-120. Cardiology team had later discontinued amiodarone and adjusted his metoprolol to 100 mg p.o. twice daily for heart rate contro and added Digoxin. Despite he was still in high VR PMH: Past Medical History: Diagnosis Date Anxiety Arrhythmia Atrial fibrillation (CMS/HCC) Drug abuse (CMS/HCC) GERD (gastroesophageal reflux disease) Irregular heart beat Pulmonary mass Shortness of breath Sleep apnea USES C-PAP PSH: Past Surgical History: Procedure Laterality Date CARPAL TUNNEL RELEASE Bilateral 2020 TONSILLECTOMY UVULOPALATOPHARYNGOPLASTY 01/2017 SH: Social Determinants of Health Tobacco Use: Medium Risk (07/16/2022) Patient History Smoking Tobacco Use: Former Smokeless Tobacco Use: Never Passive Exposure: Not on file Alcohol Use: Not on file Financial Resource Strain: Low Risk (11/05/2023) Overall Financial Resource Strain (CARDIA) Difficulty of Paying Living Expenses: Not very hard Food Insecurity: No Food Insecurity (11/05/2023) Hunger Vital Sign Worried About Running Out of Food in the Last Year: Never true Ran Out of Food in the Last Year: Not on file Transportation Needs: No Transportation Needs (11/05/2023) Transportation Lack of Transportation (Medical): No Lack of Transportation (Non-Medical): Not on file Physical Activity: Not on file Stress: Not on file Social Connections: Not on file Intimate Partner Violence: Unknown (11/05/2023) Humiliation, Afraid, Rape, and Kick questionnaire Fear of Current or Ex-Partner: No Emotionally Abused: Not on file Physically Abused: Not on file Sexually Abused: Not on file Depression: Not on file Housing Stability: Low Risk (11/05/2023) Housing Stability Vital Sign Unable to Pay for Housing in the Last Year: Not on file Number of Places Lived in the Last Year: Not on file Unstable Housing in the Last Year: No Utilities: Not At Risk (11/05/2023) [facility] Utilities Threatened with loss of utilities: No Allergies: No Known Allergies Weight: @WEIGHT@ Visit Vitals BP 110/76 Pulse 74 Temp 36.4 ???C (97.5 ???F) (Temporal) Resp 16 Ht 1.854 m (6' 1 ) Wt 124 kg (273 lb 12.8 oz) SpO2 98% BMI 36.12 kg/m??? Smoking Status Former BSA 2.53 m??? Meds: No current facility-administered medications on file prior to encounter. Current Outpatient Medications on File Prior to Encounter Medication Sig Dispense Refill apixaban (Eliquis) 5 mg tablet Take 5 mg by mouth twice a day. buprenorphine-naloxone (Suboxone) 8-2 mg SL film dissolve 1 FILM under the tongue twice a day buprenorphine-naloxone (Suboxone) 8-[address] 1 tablet under the tongue in the morning. furosemide (Lasix) 20 mg tablet Take 20 mg by mouth in the morning. multivitamin tablet Take 1 tablet by mouth in the morning. nicotine (Nicoderm CQ) 21 mg/24 hr patch apply 1 patch to CLEAN, DRY, AND INTACT SKIN once daily REMOVE ev... (REFER TO PRESCRIPTION NOTES). sotalol (Betapace) 120 mg tablet sotalol (Betapace) 80 mg tablet Take 80 mg by mouth every 12 (twelve) hours. UNABLE TO FIND Med Name: BLACK SEED [DISCONTINUED] Eliquis 5 mg tablet take 1 tablet by mouth every morning and BEFORE BEDTIME ROS: Cardio Basic Cardiovascular Symptoms: no lightheadedness, no leg edema, no syncope, no orthopnea, no PND, no claudication, Constitutional Constitutional: no fever, no night sweats, no significant weight gain, no significant weight loss, no exercise intolerance Eyes Eyes: no dry eyes, no irritation, no vision change ENMT Ears: no difficulty hearing, no ear pain Nose: no frequent nosebleeds, Mouth/Throat: no sore throat, no bleeding gums, no snoring, no dry mouth, no mouth ulcers, no oral abnormalities, no teeth problems Respiratory Respiratory: no cough, no wheezing, no coughing up blood, no sleep apnea Musculoskeletal Musculoskeletal: no muscle aches, no muscle weakness, joint pain+, no back pain, no swelling in the extremities Integumentary Skin no rash, no ulcer, no varicosities, no discoloration, no pruritus Neurologic Neurologic: no loss of consciousness, no weakness, no numbness, no seizures, no dizziness, no headaches Psychiatric Psych: no depression, feeling safe in relationship, no alcohol abuse, Hematologic/Lymphatic Hematologic/Lymphatic no swollen glands, no bruising Physical Exam: Constitutional (more content not included)... Normal [facility] CONSULT discharge planning: to home Patient came to [facility] 11/04/2023; H&P stating transferred from [facility] because of difficult to control atrial fibrillation and sepsis from pneumonia. Patient was admitted at [facility] since 11/01 and stayed there for 3 days then was transferred to [[facility]] - no OT or PT ordered at this time - LDAs noting single lumen implantable port left chest; peripheral IV - MAR noting cefTRIAXone through 11/10/23; enquiring if this will continue with outpatient dialysis or if needing home IVabx arranged prior to discharge - follow up with [facility] on AVS barriers: - IV antibiotics plan Normal [facility] HPon 11-09-2023 [facility] Electrophysiology Consult Note Reason for visit: Afib with uncontrolled VR HPI: Arvin Julien is a 43 y.o. year old with past medical history of lung cancer, persistent atrial fibrillation who had failed cardioversion in the past with? HfpEf was transferred from [facility] due to multifocal pneumonia and possible SIRS. There was he was observed to be in A-fib with RVR. He was treated initially with Cardizem which was discontinued continued after his echo showed low ejection fraction 35 to 40% and later switched to amiodarone IV infusion, his heart rate still in the 110-120. Cardiology team had later discontinued amiodarone and adjusted his metoprolol to 100 mg p.o. twice daily for heart rate contro and added Digoxin. Despite he was still in high VR PMH: Past Medical History: Diagnosis Date Anxiety Arrhythmia Atrial fibrillation (CMS/HCC) Drug abuse (CMS/HCC) GERD (gastroesophageal reflux disease) Irregular heart beat Pulmonary mass Shortness of breath Sleep apnea USES C-PAP PSH: Past Surgical History: Procedure Laterality Date CARPAL TUNNEL RELEASE Bilateral 2020 TONSILLECTOMY UVULOPALATOPHARYNGOPLASTY 01/2017 SH: Social Determinants of Health Tobacco Use: Medium Risk (07/16/2022) Patient History Smoking Tobacco Use: Former Smokeless Tobacco Use: Never Passive Exposure: Not on file Alcohol Use: Not on file Financial Resource Strain: Low Risk (11/05/2023) Overall Financial Resource Strain (CARDIA) Difficulty of Paying Living Expenses: Not very hard Food Insecurity: No Food Insecurity (11/05/2023) Hunger Vital Sign Worried About Running Out of Food in the Last Year: Never true Ran Out of Food in the Last Year: Not on file Transportation Needs: No Transportation Needs (11/05/2023) Transportation Lack of Transportation (Medical): No Lack of Transportation (Non-Medical): Not on file Physical Activity: Not on file Stress: Not on file Social Connections: Not on file Intimate Partner Violence: Unknown (11/05/2023) Humiliation, Afraid, Rape, and Kick questionnaire Fear of Current or Ex-Partner: No Emotionally Abused: Not on file Physically Abused: Not on file Sexually Abused: Not on file Depression: Not on file Housing Stability: Low Risk (11/05/2023) Housing Stability Vital Sign Unable to Pay for Housing in the Last Year: Not on file Number of Places Lived in the Last Year: Not on file Unstable Housing in the Last Year: No Utilities: Not At Risk (11/05/2023) [facility] Utilities Threatened with loss of utilities: No Allergies: No Known Allergies Weight: @WEIGHT@ Visit Vitals BP 110/76 Pulse 74 Temp 36.4 ???C (97.5 ???F) (Temporal) Resp 16 Ht 1.854 m (6' 1 ) Wt 124 kg (273 lb 12.8 oz) SpO2 98% BMI 36.12 kg/m??? Smoking Status Former BSA 2.53 m??? Meds: No current facility-administered medications on file prior to encounter. Current Outpatient Medications on File Prior to Encounter Medication Sig Dispense Refill apixaban (Eliquis) 5 mg tablet Take 5 mg by mouth twice a day. buprenorphine-naloxone (Suboxone) 8-2 mg SL film dissolve 1 FILM under the tongue twice a day buprenorphine-naloxone (Suboxone) 8-[address] 1 tablet under the tongue in the morning. furosemide (Lasix) 20 mg tablet Take 20 mg by mouth in the morning. multivitamin tablet Take 1 tablet by mouth in the morning. nicotine (Nicoderm CQ) 21 mg/24 hr patch apply 1 patch to CLEAN, DRY, AND INTACT SKIN once daily REMOVE ev... (REFER TO PRESCRIPTION NOTES). sotalol (Betapace) 120 mg tablet sotalol (Betapace) 80 mg tablet Take 80 mg by mouth every 12 (twelve) hours. UNABLE TO FIND Med Name: BLACK SEED [DISCONTINUED] Eliquis 5 mg tablet take 1 tablet by mouth every morning and BEFORE BEDTIME ROS: Cardio Basic Cardiovascular Symptoms: no lightheadedness, no leg edema, no syncope, no orthopnea, no PND, no claudication, Constitutional Constitutional: no fever, no night sweats, no significant weight gain, no significant weight loss, no exercise intolerance Eyes Eyes: no dry eyes, no irritation, no vision change ENMT Ears: no difficulty hearing, no ear pain Nose: no frequent nosebleeds, Mouth/Throat: no sore throat, no bleeding gums, no snoring, no dry mouth, no mouth ulcers, no oral abnormalities, no teeth problems Respiratory Respiratory: no cough, no wheezing, no coughing up blood, no sleep apnea Musculoskeletal Musculoskeletal: no muscle aches, no muscle weakness, joint pain+, no back pain, no swelling in the extremities Integumentary Skin no rash, no ulcer, no varicosities, no discoloration, no pruritus Neurologic Neurologic: no loss of consciousness, no weakness, no numbness, no seizures, no dizziness, no headaches Psychiatric Psych: no depression, feeling safe in relationship, no alcohol abuse, Hematologic/Lymphatic Hematologic/Lymphatic no swollen glands, no bruising Physical Exam: Constitutional (more content not included)... Normal [facility] MAGNESIUMon 11-09-2023 Magnesium [Mass/Vol] 1.8 mg/dL Low 1.9-2.7 [facility] Comment on above: Performed By: #### L [id number] #### [facility] ([facility]) [address] [place] [address] MANUAL DIFFERENTIALon 2023 BASOPHILS (10*3/UL) IN BLOOD BY CALCULATION 0.04 10*3/uL Normal 0.00-0.20 [facility] Comment on above: Performed By: #### L [id number] #### [facility] ([facility]) [address] [place] [address] BASOPHILS/100 LEUKOCYTES IN BLOOD BY AUTOMATED COUNT 0.7 % Normal 0.0-1.0 [facility] Comment on above: Performed By: #### L [id number] #### [facility] ([facility]) [address] [place] [address] EOSINOPHILS (10*3/UL) IN BLOOD BY CALCULATION 0.00 10*3/uL Normal 0.00-0.50 [facility] Comment on above: Performed By: #### L [id number] #### [facility] ([facility]) [address] [place] [address] EOSINOPHILS/100 LEUKOCYTES IN BLOOD BY AUTOMATED COUNT 0.0 % Normal 0.0-6.0 [facility] Comment on above: Performed By: #### L [id number] #### [facility] ([facility]) [address] [place] [address] LYMPHOCYTES (10*3/UL) IN BLOOD BY CALCULATION 1.14 10*3/uL Low 1.20-4.00 [facility] Comment on above: Performed By: #### L [id number] #### [facility] ([facility]) [address] [place] [address] LYMPHOCYTES/100 LEUKOCYTES IN BLOOD BY AUTOMATED COUNT 20.6 % Normal 20.0-45.0 [facility] Comment on above: Performed By: #### L [id number] #### [facility] ([facility]) [address] [place] [address] MONOCYTES (10*3/UL) IN BLOOD BY CALCUATION 0.88 10*3/uL Normal 0.10-1.00 [facility] Comment on above: Performed By: #### L [id number] #### [facility] ([facility]) [address] [place] [address] MONOCYTES/100 LEUKOCYTES IN BLOOD BY AUTOMATED COUNT 16.0 % High 5.0-12.0 [facility] Comment on above: Performed By: #### L [id number] #### [facility] ([facility]) [address] [place] [address] MYELOCYTES (10*3/UL) IN BLOOD BY CALCULATION 0.15 10*3/uL High 0.00 [facility] Comment on above: Performed By: #### L [id number] #### [facility] ([facility]) [address] [place] [address] MYELOCYTES/100 LEUKOCYTES IN BLOOD CELLAVISION 2.7 % High 0.0-0.0 [facility] Comment on above: Performed By: #### L [id number] #### [facility] ([facility]) [address] [place] [address] NEUTROPHILS (10*3/UL) IN BLOOD BY CALCULATION 3.3 10*3/uL Normal 1.6-7.6 [facility] Comment on above: Performed By: #### L [id number] #### [facility] ([facility]) [address] [place] [address] NEUTROPHILS/100 LEUKOCYTES IN BLOOD BY AUTOMATED COUNT 60.0 % Normal 40.0-72.0 [facility] Comment on above: Performed By: #### L [id number] #### [facility] ([facility]) [address] [place] [address] NUCLEATED RED BLOOD CELLS IN BLOOD BY LIGHT MICROSCOPY Present Normal [facility] Comment on above: Performed By: #### L [id number] #### [facility] ([facility]) [address] [place] [address] PLASMA CELLS/100 LEUKOCYTES IN BLOOD 0 % Normal 0 [facility] Comment on above: Performed By: #### L [id number] #### [facility] ([facility]) [address] [facility] [place] [address] PLATELETS GIANT PRESENCE IN BLOOD BY LIGHT MICROSCOPY Present Normal [facility] Comment on above: Performed By: #### L [id number] #### [facility] ([facility]) [address] [place] [address] VARIANT LYMPHOCYTES (10*3/UL) IN BLOOD BY CALCULATION 0.00 10*3/uL Normal 0.00 [facility] Comment on above: Performed By: #### L [id number] #### [facility] ([facility]) [address] [place] [address] VARIANT LYMPHOCYTES/100 LEUKOCYTES IN BLOOD CELLAVISION 0.0 % Normal 0.0-0.0 [facility] Comment on above: Performed By: #### L [id number] #### [facility] ([facility]) [address] [place] [address] 30on 11-08-2023 30 The patient is Moder ately Stable - Low risk of patient condition declining or worsening The patient's goals for the shift include sleep The clinical goals for the shift include vss Problem: Pain - Adult Goal: Verbalizes/displays adequate comfort level or baseline comfort level Outcome: Progressing Problem: Safety - Adult Goal: Free from fall injury Outcome: Progressing Flowsheets (Taken 11/08/20231945) Free from fall injury: Assess patient frequently for physical needs Identify cognitive and physical deficits and behaviors that affect risk of falls [place] fall precautions as indicated by assessment Educate patient/family on patient safety, including physical limitations Instruct patient to call for assistance with activity based on assessment Consider OT/PT consult to assist with strengthening/mobility Problem: Discharge Planning Goal: Discharge to home or other facility with appropriate resources Outcome: Progressing Flowsheets (Taken 11/08/20231945) Discharge to home or other facility with appropriate resources: Identify barriers to discharge with patient and caregiver Arrange for needed discharge resources and transportation as appropriate Identify discharge learning needs (meds, wound care, etc) Refer to discharge planning if patient needs post-hospital services based on physician order or complex needs related to functional status, cognitive ability or social support system Problem: Chronic Conditions and Co-morbidities Goal: Patient's chronic conditions and co-morbidity symptoms are monitored and maintained or improved Outcome: Progressing Flowsheets (Taken 11/08/20231945) Care Plan - Patient's Chronic Conditions and Co-Morbidity Symptoms are Monitored and Maintained or Improved: Monitor and assess patient's chronic conditions and comorbid symptoms for stability, deterioration, or improvement Collaborate with multidisciplinary team to address chronic and comorbid conditions and prevent exacerbation or deterioration Update acute care plan with appropriate goals if chronic or comorbid symptoms are exacerbated and prevent overall improvement and discharge Normal [facility] 30 Problem: Pain - Adul t Goal: Verbalizes/displays adequate comfort level or baseline comfort level Outcome: Progressing Problem: Safety - Adult Goal: Free from fall injury Outcome: Progressing Problem: Chronic Conditions and Co-morbidities Goal: Patient's chronic conditions and co-morbidity symptoms are monitored and maintained or improved Outcome: Progressing The patient is Moderately Stable - Low risk of patient condition declining or worsening The patient's goals for the shift include Rest The clinical goals for the shift include VSS/Safety PRN pain meds effective for pain. Afib con, amiodarone drip started. Normal [facility] 30 Daily Case Managemen t Update Multidisciplinary rounds have been completed. Barriers to Discharge: Patient to be transitioned to oral lasix either today or tomorrow. Cardiology adjusted medications to better control HR, with plan to monitor HR over night. Discharge dispo: Plan at this time is for patient to discharge home when medically ready. Diet: Dietary Orders (From admission, onward) Start Ordered 11/06/23 0905 Regular Diet Diet effective now Question: Room Service? Answer: Yes 11/06/23 09 Physician Expected Discharge Date: 11/09/2023 Discharge Delays: PT Six Click Score: 24 OT Six Click Score: PT Recommendations: OT Recommendations: New Consults: Consult Orders (From admission, onward) Start Ordered 11/07/23 1048 Inpatient consult to Electrophysiology Once Specialty: Electrophysiology Provider: (Not yet assigned) Question Answer Comment Consulting Group ELECTROPHYSIOLOGY TEAM Reason for Consult? uncontrolled afib Level of Consultation Consultation and Management 11/07/23 1048 Ancillary Consults (From admission, onward) Start Ordered 11/07/23 0947 Inpatient consult to Social Work Once Provider: (Not yet assigned) Question Answer Comment Select all services needed for the patient Other Other: acute heart failure 11/07/23 0947 [facility] CBC WITH AUTO DIFFERENTIALon 11-08-2023 Erythrocyte distribution width (RBC) [Ratio] 16.3 % High 11.5-15.0 [facility] Comment on above: Performed By: #### L [id number] #### [facility] ([facility]) [address] [place] [address] ERYTHROCYTE MEAN CORPUSCULAR HEMOGLOBIN CONCENTRATION (G/DL) BY AUTOMATED 32.1 g/dL Normal 32.0-35.0 [facility] Comment on above: Performed By: #### L [id number] #### [facility] ([facility]) [address] [place] [address] Hematocrit (Bld) [Volume fraction] 32.1 % Low 39.0-55.0 [facility] Comment on above: Performed By: #### L [id number] #### [facility] ([facility]) [address] [place] [address] Hemoglobin (Bld) [Mass/Vol] 10.3 g/dL Low 13.0-17.0 [facility] Comment on above: Performed By: #### L [id number] #### [facility] ([facility]) [address] [place] [address] MCH (RBC) [Entitic mass] 29.8 pg Normal 27.0-33.0 [facility] Comment on above: Performed By: #### L [id number] #### [facility] ([facility]) [address] [place] [address] MCV (RBC) [Entitic vol] 92.8 fL Normal 82.0-98.0 [facility] Comment on above: Performed By: #### L [id number] #### [facility] ([facility]) [address] [place] [address] NRBC (PER 100 WBCS) BY AUTOMATED COUNT 0.0 % Normal 0 [facility] Comment on above: Performed By: #### L [id number] #### [facility] ([facility]) [address] [place] [address] PLATELETS (10*3/UL) IN BLOOD AUTOMATED COUNT 226 10*3/uL Normal 150-400 [facility] Comment on above: Performed By: #### L [id number] #### [facility] [address] [place] [address] RBC (Bld) [#/Vol] 3.46 10*6/uL Low 4.20-5.70 [facility] Comment on above: Performed By: #### L [id number] #### [facility] ([facility]) [address] [place] [address] WBC (Bld) [#/Vol] 4.75 10*3/uL Normal 4.00-10.60 [facility] Comment on above: Performed By: #### L [id number] #### [facility] ([facility]) [address] [place] [address] COMPREHENSIVE METABOLIC PANE Adam 11-08-2023 Albumin [Mass/Vol] 3.3 g/dL Low 3.5-5.7 [facility] Comment on above: Performed By: #### L [id number] #### [facility] ([facility]) [address] [place] [address] ALP [Catalytic activity/Vol] 29 U/L Low 34-104 [facility] Comment on above: Performed By: #### L [id number] #### [facility] ([facility]) [address] [place] [address] ALT [Catalytic activity/Vol] 30 U/L Normal 7-52 [facility] Comment on above: Performed By: #### L [id number] #### [facility] ([facility]) [address] [place] [address] Anion gap [Moles/Vol] 11 mmol/L Normal 7-20 [facility] Comment on above: Performed By: #### L [id number] #### [facility] [address] [place] [address] AST [Catalytic activity/Vol] 12 U/L Low 13-39 [facility] Comment on above: Performed By: #### L [id number] #### [facility] ([facility]) [address] [place] [address] Bilirubin [Mass/Vol] 0.7 mg/dL Normal 0.3-1.0 [facility] Comment on above: Performed By: #### L [id number] #### [facility] ([facility]) [address] [place] [address] Calcium [Mass/Vol] 9.0 mg/dL Normal 8.6-10.3 [facility] Comment on above: Performed By: #### L [id number] #### [facility] ([facility]) [address] [place] [address] Chloride [Moles/Vol] 102 mmol/L Normal 98-107 [facility] Comment on above: Performed By: #### L [id number] #### [facility] ([facility]) [address] [place] [address] CO2 [Moles/Vol] 30 mmol/L Normal 21-31 [facility] Comment on above: Performed By: #### L [id number] #### [facility] ([facility]) [address] [place] [address] Creatinine [Mass/Vol] 0.83 mg/dL Normal 0.70-1.30 [facility] Comment on above: Performed By: #### L [id number] #### [facility] ([facility]) [address] [place] [address] GLOMERULAR FILTRATION RATE ML/MIN/1.73 SQ M.PREDICTED 110.0 mL/min/1.73m*2 Normal >60.0 [facility] Comment on above: Result Comment: The [facility]???s estimated glomerular filtration rate (eGFR) will no longer include consideration of race in its calculation. The National Kidney Foundation???s eGFR Task Force developed new recommendations for the estimation of the glomerular filtration rate in the [place] They recommend immediate implementation of the new equation refit without the race variable in all laboratories because the calculation does not include race. In addition to not including race in the calculation and reporting, it included diversity in its development, and has acceptable performance characteristics and potential consequences that do not disproportionately affect any one group of individuals. Performed By: #### L [id number] #### [facility] ([facility]) [address] [place] [address] Glucose [Mass/Vol] 93 mg/dL Normal 70-100 [facility] Comment on above: Performed By: #### L [id number] #### [facility] ([facility]) [address] [place] [address] Potassium [Moles/Vol] 4.2 mmol/L Normal 3.5-5.1 [facility] Comment on above: Performed By: #### L [id number] #### [facility] ([facility]) [address] [place] [address] Protein [Mass/Vol] 6.2 g/dL Normal 6.0-8.3 [facility] Comment on above: Performed By: #### L [id number] #### [facility] ([facility]) [address] [place] [address] Sodium [Moles/Vol] 139 mmol/L Normal 136-145 [facility] Comment on above: Performed By: #### L [id number] #### [facility] ([facility]) [address] [place] [address] Urea nitrogen [Mass/Vol] 9 mg/dL Normal 7-25 [facility] Comment on above: Performed By: #### L [id number] #### [facility] ([facility]) [address] [place] [address] UREA NITROGEN/CREATININE (MASS RATIO) IN SER/PLAS 10.8 Normal [facility] Comment on above: Performed By: #### L [id number] #### [facility] ([facility]) [address] [place] [address] MAGNESIUMon 11-08-2023 Magnesium [Mass/Vol] 1.8 mg/dL Low 1.9-2.7 [facility] Comment on above: Performed By: #### L [id number] #### [facility] ([facility]) [address] [place] [address] MANUAL DIFFERENTIALon 2023 BASOPHILS (10*3/UL) IN BLOOD BY CALCULATION 0.07 10*3/uL Normal 0.00-0.20 [facility] Comment on above: Performed By: #### L [id number] ####[facility] ([facility])[address] [place] [address] BASOPHILS/100 LEUKOCYTES IN BLOOD BY AUTOMATED COUNT 1.4 % High 0.0-1.0 [facility] Comment on above: Performed By: #### L [id number] ####[facility] ([facility])[address] [place] [address] EOSINOPHILS (10*3/UL) IN BLOOD BY CALCULATION 0.00 10*3/uL Normal 0.00-0.50 [facility] Comment on above: Performed By: #### L [id number] ####[facility] ([facility])[address] [place] [address] EOSINOPHILS/100 LEUKOCYTES IN BLOOD BY AUTOMATED COUNT 0.0 % Normal 0.0-6.0 [facility] Comment on above: Performed By: #### L [id number] ####[facility] ([facility])[address] [place] [address] LYMPHOCYTES (10*3/UL) IN BLOOD BY CALCULATION 1.62 10*3/uL Normal 1.20-4.00 [facility] Comment on above: Performed By: #### L [id number] ####[facility] ([facility])[address] [place] [address] LYMPHOCYTES/100 LEUKOCYTES IN BLOOD BY AUTOMATED COUNT 34.0 % Normal 20.0-45.0 [facility] Comment on above: Performed By: #### L [id number] ####[facility] ([facility])[address] [place] [address] METAMYELOCYTES (10*3/UL) IN BLOOD BY CALCULATION 0.07 10*3/uL High 0.00 [facility] Comment on above: Performed By: #### L [id number] ####[facility] ([facility])[address] [place] [address] METAMYELOCYTES/100 LEUKOCYTES IN BLOOD CELLAVISION 1.4 % High 0.0-0.0 [facility] Comment on above: Performed By: #### L [id number] ####[facility] ([facility])[address] [place] [address] MONOCYTES (10*3/UL) IN BLOOD BY CALCUATION 0.74 10*3/uL Normal 0.10-1.00 [facility] Comment on above: Performed By: #### L [id number] ####[facility] ([facility])[address] [place] [address] MONOCYTES/100 LEUKOCYTES IN BLOOD BY AUTOMATED COUNT 15.6 % High 5.0-12.0 [facility] Comment on above: Performed By: #### L [id number] ####[facility] ([facility])[address] [place] [address] MYELOCYTES (10*3/UL) IN BLOOD BY CALCULATION 0.13 10*3/uL High 0.00 [facility] Comment on above: Performed By: #### L [id number] ####[facility] ([facility])[address] [place] [address] MYELOCYTES/100 LEUKOCYTES IN BLOOD CELLAVISION 2.7 % High 0.0-0.0 [facility] Comment on above: Performed By: #### L [id number] ####[facility] ([facility])[address] [place] [address] NEUTROPHILS (10*3/UL) IN BLOOD BY CALCULATION 2.1 10*3/uL Normal 1.6-7.6 [facility] Comment on above: Performed By: #### L [id number] ####[facility] ([facility])[address] [place] [address] NEUTROPHILS/100 LEUKOCYTES IN BLOOD BY AUTOMATED COUNT 44.9 % Normal 40.0-72.0 [facility] Comment on above: Performed By: #### L [id number] ####[facility] ([facility])[address] [place] [address] PLASMA CELLS/100 LEUKOCYTES IN BLOOD 0 % Normal 0 [facility] Comment on above: Performed By: #### L [id number] ####[facility] ([facility])[address] [place] [address] PLATELETS GIANT PRESENCE IN BLOOD BY LIGHT MICROSCOPY Present Normal [facility] Comment on above: Performed By: #### L [id number] ####[facility] ([facility])[address] [place] [address] TOXIC GRANULES PRESENCE IN BLOOD BY LIGHT MICROSCOPY Slight Normal [facility] Comment on above: Performed By: #### L [id number] ####[facility] ([facility])[address] [place] [address] VARIANT LYMPHOCYTES (10*3/UL) IN BLOOD BY CALCULATION 0.00 10*3/uL Normal 0.00 [facility] Comment on above: Performed By: #### L [id number] ####[facility] ([facility])[address] [place] [address] VARIANT LYMPHOCYTES/100 LEUKOCYTES IN BLOOD CELLAVISION 0.0 % Normal 0.0-0.0 [facility] Comment on above: Performed By: #### L [id number] ####[facility] ([facility])[address] [place] [address] PHOSPHORUSon 11-08-2023 Magnesium [Mass/Vol] 3.9 mg/dL Normal 2.5-5.0 [facility] Comment on above: Performed By: #### L [id number] ####[facility] [place] [address] 30on 11-07-2023 30 The patient is Moder ately Stable - Low risk of patient condition declining or worsening The patient's goals for the shift include sleep The clinical goals for the shift include vss Problem: Pain - Adult Goal: Verbalizes/displays adequate comfort level or baseline comfort level Outcome: Progressing Problem: Safety - Adult Goal: Free from fall injury Outcome: Progressing Flowsheets (Taken 11/07/20231954) Free from fall injury: Assess patient frequently for physical needs Identify cognitive and physical deficits and behaviors that affect risk of falls [place] fall precautions as indicated by assessment Educate patient/family on patient safety, including physical limitations Instruct patient to call for assistance with activity based on assessment Problem: Discharge Planning Goal: Discharge to home or other facility with appropriate resources Outcome: Progressing Flowsheets (Taken 11/07/20231954) Discharge to home or other facility with appropriate resources: Identify barriers to discharge with patient and caregiver Arrange for needed discharge resources and transportation as appropriate Identify discharge learning needs (meds, wound care, etc) Refer to discharge planning if patient needs post-hospital services based on physician order or complex needs related to functional status, cognitive ability or social support system Problem: Chronic Conditions and Co-morbidities Goal: Patient's chronic conditions and co-morbidity symptoms are monitored and maintained or improved Outcome: Progressing Flowsheets (Taken 11/07/20231954) Care Plan - Patient's Chronic Conditions and Co-Morbidity Symptoms are Monitored and Maintained or Improved: Monitor and assess patient's chronic conditions and comorbid symptoms for stability, deterioration, or improvement Collaborate with multidisciplinary team to address chronic and comorbid conditions and prevent exacerbation or deterioration Update acute care plan with appropriate goals if chronic or comorbid symptoms are exacerbated and prevent overall improvement and discharge Normal [facility] 30 The patient is Moder ately Stable - Low risk of patient condition declining or worsening The patient's goals for the shift include rest and comfort The clinical goals for the shift include controlling HR, managing SOB, manage pain, and prevent infection. Barriers to progression include diagnosis of Afib, Pleural effusion, and lung cancer. Recommendations to address these barriers include Sitting individual in an upright position and performing cough and deep breathing exercises and well as administer prescribed medications to manage HR. None pharmacological methods to control pain such as rest and relaxation techniques can me used to manage pain along with pain medication. People entering the room should wear surgical mask to prevent patient from getting an infection. Problem: Safety - Adult Goal: Free from fall injury Outcome: Progressing Problem: Chronic Conditions and Co-morbidities Goal: Patient's chronic conditions and co-morbidity symptoms are monitored and maintained or improved Outcome: Progressing Problem: Pain Goal: LTG-Verbalize decrease in pain Outcome: Progressing Goal: LTG-Demostrate that the pain does not impair ADLs Outcome: Progressing Goal: STG-Pt will verbalize decreased discomfort Outcome: Progressing Problem: Infection Goal: LTG-No signs/symptoms of infection Outcome: Progressing Goal: LTG-Pt free of complications from infection Outcome: Progressing Goal: STG-Will allow for vitals check two times daily Outcome: Progressing Problem: Pain - Adult Goal: Verbalizes/displays adequate comfort level or baseline comfort level Outcome: Progressing Normal [facility] 30 Daily Case Managemen t Update Multidisciplinary rounds have been completed. Barriers to Discharge: Pending clinical course and improvement in clinical condition. Electrophysiology consulted for atrial fibrillation per Cardiology; pending recommendations. Discharge plan is home when medically ready. Diet: Dietary Orders (From admission, onward) Start Ordered 11/06/23 09 Regular Diet Diet effective now Question: Room Service? Answer: Yes 11/06/23 09 Physician Expected Discharge Date: Discharge Delays: PT Six Click Score: 24 OT Six Click Score: PT Recommendations: OT Recommendations: New Consults: Consult Orders (From admission, onward) Start Ordered 11/07/23 1048 Inpatient consult to Electrophysiology Once Specialty: Electrophysiology Provider: (Not yet assigned) Question Answer Comment [facility] ELECTROPHYSIOLOGY TEAM Reason for Consult? uncontrolled afib Level of Consultation Consultation and Management 11/07/23 1048 Ancillary Consults (From admission, onward) Start Ordered 11/07/23 0947 Inpatient consult to Social Work Once Provider: (Not yet assigned) Question Answer Comment Select all services needed for the patient Other Other: acute heart failure 11/07/23 0947 Normal [facility] 30 The patient is Moder ately Stable - Low risk of patient condition declining or worsening The patient's goals for the shift include rest/comfort The clinical goals for the shift include VSS, safety Over the shift, the patient did make progress toward the following goals. Recommendations to address these barriers include making changes to the treatment plan as needed. Problem: Pain - Adult Goal: Verbalizes/displays adequate comfort level or baseline comfort level 11/07/2023226 by Beatris Benton RN Outcome: Progressing 11/07/2023137 by Beatris Benton RN Outcome: Progressing Problem: Safety - Adult Goal: Free from fall injury 11/07/2023226 by Beatris Benton RN Outcome: Progressing 11/07/2023137 by Beatris Benton RN Outcome: Progressing Problem: Discharge Planning Goal: Discharge to home or other facility with appropriate resources 11/07/2023226 by Beatris Benton RN Outcome: Progressing 11/07/2023137 by Beatris Benton RN Outcome: Progressing Problem: Chronic Conditions and Co-morbidities Goal: Patient's chronic conditions and co-morbidity symptoms are monitored and maintained or improved 11/07/2023226 by Beatris Benton RN Outcome: Progressing 11/07/2023137 by Beatris Benton RN Outcome: Progressing Problem: Pain Goal: LTG-Verbalize decrease in pain 11/07/2023226 by Beatris Benton, THERESA Outcome: Progressing 11/07/2023137 by Beatris Benton RN Outcome: Progressing Goal: LTG-Demostrate that the pain does not impair ADLs 11/07/2023226 by Beatris Benton, THERESA Outcome: Progressing 11/07/2023137 by Beatris Benton, RN Outcome: Progressing Goal: STG-Pt will verbalize decreased discomfort 11/07/2023226 by Beatris Benton, THERESA Outcome: Progressing 11/07/2023137 by Beatris Benton RN Outcome: Progressing Problem: Infection Goal: LTG-No signs/symptoms of infection 11/07/2023226 by Beatris Benton, THERESA Outcome: Progressing 11/07/2023137 by Beatris Benton RN Outcome: Progressing Goal: LTG-Pt free of complications from infection 11/07/2023226 by Beatris Benton, THERESA Outcome: Progressing 11/07/2023137 by Beatris Benton RN Outcome: Progressing Goal: STG-Will allow for vitals check two times daily 11/07/2023226 by Beatris Benton, THERESA Outcome: Progressing 11/07/2023137 by Beatris Benton RN Outcome: Progressing Normal [facility] CBC WITH AUTO DIFFERENTIALon 11-07-2023 Basophils (Bld) [#/Vol] 0.03 10*3/uL Normal 0.00-0.20 [facility] Comment on above: Performed By: #### L [id number] ####[facility] ([facility])[address] [place] [address] Basophils/100 WBC (Bld) 0.6 % Normal 0.0-1.0 [facility] Comment on above: Performed By: #### L [id number] ####[facility] ([facility])[address] [place] [address] Eosinophils (Bld) [#/Vol] 0.02 10*3/uL Normal 0.00-0.50 [facility] Comment on above: Performed By: #### L [id number] ####[facility] ([facility])[address] [place] [address] Eosinophils/100 WBC (Bld) 0.4 % Normal 0.0-6.0 [facility] Comment on above: Performed By: #### L [id number] ####[facility] ([facility])[address] [place] [address] Erythrocyte distribution width (RBC) [Ratio] 16.4 % High 11.5-15.0 [facility] Comment on above: Performed By: #### L [id number] ####[facility] ([facility])[address] [place] [address] ERYTHROCYTE MEAN CORPUSCULAR HEMOGLOBIN CONCENTRATION (G/DL) BY AUTOMATED 32.0 g/dL Normal 32.0-35.0 [facility] Comment on above: Performed By: #### L [id number] ####[facility] ([facility])[address] [place] [address] Hematocrit (Bld) [Volume fraction] 32.2 % Low 39.0-55.0 [facility] Comment on above: Performed By: #### L [id number] ####[facility] ([facility])[address] [place] [address] Hemoglobin (Bld) [Mass/Vol] 10.3 g/dL Low 13.0-17.0 [facility] Comment on above: Performed By: #### L [id number] ####[facility] ([facility])[address] [place] [address] Immature granulocytes (Bld) [#/Vol] 0.24 10*3/uL High 0.00-0.20 [facility] Comment on above: Performed By: #### L [id number] ####[facility] ([facility])[address] [place] [address] Immature granulocytes/100 WBC (Bld) 4.8 % High 0.0-1.0 [facility] Comment on above: Performed By: #### L [id number] ####[facility] ([facility])[address] [place] [address] Lymphocytes (Bld) [#/Vol] 1.28 10*3/uL Normal 1.20-4.00 [facility] Comment on above: Performed By: #### L [id number] ####[facility] [place] [address] Lymphocytes/100 WBC (Bld) 25.5 % Normal 20.0-45.0 [facility] Comment on above: Performed By: #### L [id number] ####[facility] ([facility])[address] [place] [address] MCH (RBC) [Entitic mass] 29.7 pg Normal 27.0-33.0 [facility] Comment on above: Performed By: #### L [id number] ####[facility] [place] [address] MCV (RBC) [Entitic vol] 92.8 fL Normal 82.0-98.0 [facility] Comment on above: Performed By: #### L [id number] ####[facility] ([facility])[address] [place] [address] Monocytes (Bld) [#/Vol] 0.91 10*3/uL Normal 0.10-1.00 [facility] Comment on above: Performed By: #### L [id number] ####[facility] ([facility])[address] [place] [address] Monocytes/100 WBC (Bld) 18.1 % High 5.0-12.0 [facility] Comment on above: Performed By: #### L [id number] ####[facility] ([facility])[address] [place] [address] Neutrophils (Bld) [#/Vol] 2.54 10*3/uL Normal 1.60-7.60 [facility] Comment on above: Performed By: #### L [id number] ####[facility] ([facility])[address] [place] [address] Neutrophils/100 WBC (Bld) 50.6 % Normal 40.0-72.0 [facility] Comment on above: Performed By: #### L [id number] ####[facility] ([facility])[address] [place] [address] NRBC (PER 100 WBCS) BY AUTOMATED COUNT 0.0 % Normal 0 [facility] Comment on above: Performed By: #### L [id number] ####[facility] ([facility])[address] [place] [address] PLATELETS (10*3/UL) IN BLOOD AUTOMATED COUNT 212 10*3/uL Normal 150-400 [facility] Comment on above: Performed By: #### L [id number] ####[facility] ([facility])[address] [place] [address] RBC (Bld) [#/Vol] 3.47 10*6/uL Low 4.20-5.70 [facility] Comment on above: Performed By: #### L [id number] ####[facility] ([facility])[address] [place] [address] WBC (Bld) [#/Vol] 5.02 10*3/uL Normal 4.00-10.60 [facility] Comment on above: Performed By: #### L [id number] ####[facility] ([facility])[address] [place] [address] COMPREHENSIVE METABOLIC PANE Adam 11-07-2023 Albumin [Mass/Vol] 3.3 g/dL Low 3.5-5.7 [facility] Comment on above: Performed By: #### L [id number] ####[facility] ([facility])[address] [place] [address] ALP [Catalytic activity/Vol] 26 U/L Low 34-104 [facility] Comment on above: Performed By: #### L [id number] ####[facility] ([facility])[address] [place] [address] ALT [Catalytic activity/Vol] 37 U/L Normal 7-52 [facility] Comment on above: Performed By: #### L [id number] ####[facility] ([facility])[address] [place] [address] Anion gap [Moles/Vol] 11 mmol/L Normal 7-20 [facility] Comment on above: Performed By: #### L [id number] ####[facility] ([facility])[address] [place] [address] AST [Catalytic activity/Vol] 14 U/L Normal 13-39 [facility] Comment on above: Performed By: #### L [id number] ####[facility] [place] [address] Bilirubin [Mass/Vol] 0.8 mg/dL Normal 0.3-1.0 [facility] Comment on above: Performed By: #### L [id number] ####[facility] [place] [address] Calcium [Mass/Vol] 8.8 mg/dL Normal 8.6-10.3 [facility] Comment on above: Performed By: #### L [id number] ####[facility] ([facility])[address] [place] [address] Chloride [Moles/Vol] 103 mmol/L Normal 98-107 [facility] Comment on above: Performed By: #### L [id number] ####[facility] ([facility])[address] [place] [address] CO2 [Moles/Vol] 29 mmol/L Normal 21-31 [facility] Comment on above: Performed By: #### L [id number] ####[facility] [place] [address] Creatinine [Mass/Vol] 0.84 mg/dL Normal 0.70-1.30 [facility] Comment on above: Performed By: #### L [id number] ####[facility] ([facility])[address] [place] [address] GLOMERULAR FILTRATION RATE ML/MIN/1.73 SQ M.PREDICTED 109.6 mL/min/1.73m*2 Normal >60.0 [facility] Comment on above: Result Comment: The [facility]???s estimated glomerular filtration rate (eGFR) will no longer include consideration of race in its calculation. The National Kidney Foundation???s eGFR Task Force developed new recommendations for the estimation of the glomerular filtration rate in the [place] They recommend immediate implementation of the new equation refit without the race variable in all laboratories because the calculation does not include race. In addition to not including race in the calculation and reporting, it included diversity in its development, and has acceptable performance characteristics and potential consequences that do not disproportionately affect any one group of individuals. Performed By: #### L [id number] ####[facility] ([facility])[address] [place] [address] Glucose [Mass/Vol] 122 mg/dL High 70-100 [facility] Comment on above: Performed By: #### L [id number] ####[facility] ([facility])[address] [place] [address] Potassium [Moles/Vol] 4.1 mmol/L Normal 3.5-5.1 [facility] Comment on above: Performed By: #### L [id number] ####[facility] ([facility])[address] [place] [address] Protein [Mass/Vol] 6.0 g/dL Normal 6.0-8.3 [facility] Comment on above: Performed By: #### L [id number] ####[facility] ([facility])[address] [place] [address] Sodium [Moles/Vol] 139 mmol/L Normal 136-145 [facility] Comment on above: Performed By: #### L [id number] ####[facility] ([facility])[address] [place] [address] Urea nitrogen [Mass/Vol] 9 mg/dL Normal 7-25 [facility] Comment on above: Performed By: #### L [id number] ####[facility] ([facility])[address] [place] [address] UREA NITROGEN/CREATININE (MASS RATIO) IN SER/PLAS 10.7 Normal [facility] Comment on above: Performed By: #### L [id number] ####[facility] [facility], [facility] ([facility])[address] [place] [address] CONSULTon 11-07-2023 CONSULT Adult Nutrition Asskameron ssment: Name: Arvin Julien Date: 1980 Date of Visit: 11/07/23 Admission Dx: Community acquired pneumonia, bilateral [J18.9] Reason for assessment: MD referral HF education Information obtained from: patient, medical record, and nursing Past Medical History: Diagnosis Date Anxiety Arrhythmia Atrial fibrillation (CMS/HCC) Drug abuse (CMS/HCC) GERD (gastroesophageal reflux disease) Irregular heart beat Pulmonary mass Shortness of breath Sleep apnea USES C-PAP Stage IV lung cancer CHF with EF 35-40% 10/2023 Hx of opioid dependence Current Medications: apixaban, 5 mg, oral, BID buprenorphine-naloxone, 1 tablet, sublingual, BID cefTRIAXone, 2 g, intravenous, Once Daily digoxin, 250 mcg, oral, Daily furosemide, 40 mg, intravenous, Daily metoprolol tartrate, 150 mg, oral, BID spironolactone, 50 mg, oral, Daily Oxygen Therapy, Labs: 0 Lab Value Date/Time POCGLU 96 07/16/2022 1343 BUN 9 11/07/2023 0455 CREATININE 0.84 11/07/2023 0455 NA 139 11/07/2023 0455 K 4.1 11/07/2023 0455 PHOS 4.1 11/07/2023 0455 MG 1.8 (L) 11/07/2023 0455 HGB 10.3 (L) 11/07/2023 0455 WBC 5.02 11/07/2023 0455 I/O: Intake/Output Summary (Last 24 hours) at 11/07/2023 1155 Last data filed at 11/06/2023 1800 Gross per 24 hour Intake 240 ml Output 250 ml Net -10 ml Allergies: No Known Allergies Nutrition Problems: Swallowing Assessment: Denies swallowing difficulties. Mouth: Denies chewing difficulties. Abdominal Assessment: Denies N/V/C/D. 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 3.3% loss in 3 months, non severe. Wt Readings from Last 10 Encounters: 11/07/23 125 kg (276 lb 6.4 oz) 11/02/23 130 kg (287 lb) office visit 08/08/23 129.3 kg (285 lb) 07/16/22 132 kg (291 lb 14.2 oz) IBW: 77.7 kg Nutrition Assessment: Pt reported familiarity with heart healthy diet, stated I'm not doing any part of that, I'm dying and I'm going to eat what I want Pt reports good intakes while admitted, requested RN take off heart healthy diet modifier Denies changes in appetite or intakes [employer] HELPER Dietary Orders (From admission, onward) Start Ordered 11/06/23 09 Regular Diet Diet effective now Question: Room Service? Answer: Yes 11/06/23 09 Percent Meals Eaten (%): 100 (11/06/23 1800 : Angela Peterson RN) Meal Intakes: 75-100% Nutrition Risk: Moderate Nutrition Needs: Needs based on: ideal body weight (77.7 kg) Calorie needs: 0225-6357 kcals/day based on Equation: 25-30 kcal/kg Protein needs: 62-78 g/day based on 0.8-1.0 g/kg Fluid needs: 2331 ml/day based on 30 ml/kg Nutrition Diagnosis: Limited adherence to nutrition-related recommendations related to pt determined quality of life as evidenced by pt refusal to follow any special diet due to stage IV lung cancer. Malnutrition Assessment: Patient at risk for malnutrition according to hospital criteria, but does not meet the clinical characteristics per the Academy of Nutrition and Dietetics, and the [place] Society of Enteral and Parenteral Nutrition to support the diagnosis of malnutrition. Nutrition Education: Diet literature: Pt denied taking any paper materials. As stated above pt stated he will not change his diet due to cancer diagnosis and quality of life. However, pt has made some lifestyle changes such as eating less fast food, cooking more at home and drying out christina or sausage grease. Reminded pt the importance watching what he eats to improve quality of life but patient believes his best quality of life is eating what he wants. Encouraged patient to keep eating protein foods to keep up strength and encouraged well rounded healthy diet with fruits and vegetables. Told patient how to get in contact with RD's if patient changes mind or has questions. Expected compliance/patient understanding: None, pt verbally stated more than once he will not follow heart healthy diet. Teach back method: Yes Time spent: 15 min Treatment Plan: Continue regular diet RN and I don't believe adding heart healthy modifier back will help pt, pt will order outside food 2. Monitor weights Goals: Nutrition Goals: intake > 75% meals, wt maintenance, and maintain visceral protein Contact the dietitian via [employer] chat 8A-4P Tuesday through Tuesday or call extension [phone]. For s & s, the dietitian can be reached via pager [phone] from 9A-3P. Unable to respond to [employer] messages on Tuesday & . Normal [facility] CONSULT ------- Attestation signed by Galdino Frye MD at 11/07/2023 2:37 PM I reviewed the salient portions of the patient history. I have seen and examined the patient during rounds with the resident/fellow. I repeated the null components of the exam. Agree with the noted assessment and plan. Galdino Frye MD [facility] Pulmonary interventional and Critical Care Medicine PULMONARY CONSULT NOTE Patient - Arvin Julien Age - 43 y.o. - 1980 [facility] # - [id number] Date of Admission - 11/04/2023 11:27 PM Chief Complaint Shortness of breath History of Present Illness Arvin Julien is a 43 y.o. male with medical history significant for stage IV lung squamous cell carcinoma on Abraxane and carboplatin (last dose was on 10/25,), A-fib on metoprolol and Eliquis, CHF with preserved EF and remote history of opioid dependence currently on Suboxone who was transferred from [facility] to MICU on 11/04 because of difficult to control atrial fibrillation and sepsis from pneumonia. Patient was admitted at [place] since 11/01 and stayed there for 3 days then was transferred to us. Initial workup showed that patient had bilateral pneumonia which can also be progression of lung cancer according to CTA chest report. Patient has been afebrile with no leukocytosis probably as he is immunocompromised from chemotherapy. Patient was managed with IV Rocephin azithromycin and Levaquin. In MICU here, he was managed with Amiodarone gtt. Now on Digoxin. Labs and images at [facility]: CBC: WBC 7.4, hemoglobin 11.1, platelets 194. BMP: Sodium 132, potassium 3.7, chloride 96, CO2 27 anion gap 12.6, BUN 6, creatinine 1.02, glucose 174, calcium 9.0. Magnesium 1.6 LFT: Total bilirubin 1.5, AST 16, ALT 50, alkaline phosphatase 33, albumin 3.3, protein 7.0 NT proBNP: 1292 EKG: A-fib, rate 190, right axis deviation probably from right fascicular Joaquim block. No ischemic changes Troponin negative Respiratory panel PCR: Negative for all viruses including SARS-CoV-2, RSV, influenza A and B Blood cultures: No growth at 36 to 48 hours x 2 CTA chest: No central PE. Bilateral multifocal parenchymal infiltrates, multifocal pneumonia is favored however recurrent malignancy is not excluded. 7.5 cm right and 1.3 cm left pleural effusion ROS: Review of Systems Constitutional: Negative for chills and fever. HENT: Positive for congestion. Cardiovascular: Positive for irregular heartbeat and leg swelling (improving). Respiratory: Positive for cough and sputum production. Gastrointestinal: Negative for abdominal pain, constipation, diarrhea, nausea and vomiting. Genitourinary: Negative for dysuria and hematuria. Allergic/Immunologic: Immune compromised (on chemo) PMH: has a past medical history of Anxiety, Arrhythmia, Atrial fibrillation (CMS/HCC), Drug abuse (CMS/HCC), GERD (gastroesophageal reflux disease), Irregular heart beat, Pulmonary mass, Shortness of breath, and Sleep apnea. PSH: has a past surgical history that includes Tonsillectomy; Carpal tunnel release (Bilateral, 2019); and Uvulopalatopharyngoplasty (01/2017). SH: reports that he quit smoking about 18 months ago. His smoking use included cigarettes. He has never used smokeless tobacco. He reports that he does not currently use alcohol. He reports that he does not currently use drugs after having used the following drugs: Heroin. Alc/Tobacco/Drug: reports that he does not currently use alcohol. reports that he quit smoking about 18 months ago. His smoking use included cigarettes. He has never used smokeless tobacco. reports that he does not currently use drugs after having used the following drugs: Heroin. Medications: Current Facility-Administered Medications: apixaban (Eliquis) tablet 5 mg, 5 mg, oral, BID, Avery Samayoa MD, 5 mg at 11/06/232122 buprenorphine-naloxone (Suboxone) 8-2 mg per SL tablet 1 tablet, 1 tablet, sublingual, BID, Avery Samayoa MD, 1 tablet at 11/06/232122 cefTRIAXone (Rocephin) IVPB 2 g in NS 50 mL (Mini-Bag Plus), 2 g, intravenous, Once Daily, Rohini Avila MD, Stopped at 11/06/23936 digoxin (Lanoxin) tablet 250 mcg, 250 mcg, oral, Daily, Addison Campos MD [COMPLETED] metoprolol tartrate (Lopressor) injection 5 mg, 5 mg, intravenous, q15 min PRN, 5 mg at 11/05/23 1035 FOLLOWED BY dilTIAZem (Cardizem) injection 20 mg, 20 mg, intravenous, Once PRN, Avery Samayoa MD furosemide (Lasix) injection 40 mg, 40 mg, intravenous, Daily, Addison Campos MD melatonin tablet 6 mg, 6 mg, oral, Nightly PRN, Yamilex Sanchez NP, 6 mg at 11/06/232122 metoprolol tartrate (Lopressor) tablet 100 mg, 100 mg, oral, BID, Indu. MD Beto, 100 mg at 11/06/232122 ondansetron ODT (Zofran-ODT) disintegrating tablet (more content not included)... Normal [facility] DIGOXIN LEVELon 11-07-2023 DIGOXIN (NG/ML) IN SER/PLAS 1.0 ng/mL Normal 0.7-2 [facility] Comment on above: Performed By: #### L [id number] ####[facility] ([facility])[address] [place] [address] MAGNESIUMon 11-07-2023 Magnesium [Mass/Vol] 1.8 mg/dL Low 1.9-2.7 [facility] Comment on above: Performed By: #### L [id number] ####[facility] ([facility])[address] [facility] [place] [address] PHOSPHORUSon 11-07-2023 Magnesium [Mass/Vol] 4.1 mg/dL Normal 2.5-5.0 [facility] Comment on above: Performed By: #### L [id number] ####[facility] [facility] [place] [address] 30on 11-06-2023 30 Problem: Pain - Adul t Goal: Verbalizes/displays adequate comfort level or baseline comfort level Outcome: Progressing Problem: Safety - Adult Goal: Free from fall injury Outcome: Progressing Flowsheets (Taken 11/06/2023 0725) Free from fall injury: Assess patient frequently for physical needs Problem: Discharge Planning Goal: Discharge to home or other facility with appropriate resources Outcome: Progressing Problem: Chronic Conditions and Co-morbidities Goal: Patient's chronic conditions and co-morbidity symptoms are monitored and maintained or improved Outcome: Progressing The patient is Moderately Stable - Low risk of patient condition declining or worsening The patient's goals for the shift include better HR The clinical goals for the shift include VSS Normal [facility] CBC WITH AUTO DIFFERENTIALon 11-06-2023 Erythrocyte distribution width (RBC) [Ratio] 16.7 % High 11.5-15.0 [facility] Comment on above: Performed By: #### L [id number] #### [facility] ([facility]) [address] [place] [address] ERYTHROCYTE MEAN CORPUSCULAR HEMOGLOBIN CONCENTRATION (G/DL) BY AUTOMATED 33.0 g/dL Normal 32.0-35.0 [facility] Comment on above: Performed By: #### L [id number] #### [facility] ([facility]) [address] [place] [address] Hematocrit (Bld) [Volume fraction] 30.6 % Low 39.0-55.0 [facility] Comment on above: Performed By: #### L [id number] #### [facility] ([facility]) [address] [facility] [place] [address] Hemoglobin (Bld) [Mass/Vol] 10.1 g/dL Low 13.0-17.0 [facility] Comment on above: Performed By: #### L [id number] #### [facility] ([facility]) [address] [place] [address] MCH (RBC) [Entitic mass] 30.1 pg Normal 27.0-33.0 [facility] Comment on above: Performed By: #### L [id number] #### [facility] ([facility]) [address] [place] [address] MCV (RBC) [Entitic vol] 91.1 fL Normal 82.0-98.0 [facility] Comment on above: Performed By: #### L [id number] #### [facility] ([facility]) [address] [place] [address] NRBC (PER 100 WBCS) BY AUTOMATED COUNT 0.7 % High 0 [facility] Comment on above: Performed By: #### L [id number] #### [facility] ([facility]) [address] [address] PLATELETS (10*3/UL) IN BLOOD AUTOMATED COUNT 203 10*3/uL Normal 150-400 [facility] Comment on above: Performed By: #### L [id number] #### [facility] [address] [place] [address] RBC (Bld) [#/Vol] 3.36 10*6/uL Low 4.20-5.70 [facility] Comment on above: Performed By: #### L [id number] #### [facility] ([facility]) [address] [place] [address] WBC (Bld) [#/Vol] 5.54 10*3/uL Normal 4.00-10.60 [facility] Comment on above: Performed By: #### L [id number] #### [facility] ([facility]) [address] [place] [address] COMPREHENSIVE METABOLIC PANE Adam 11-06-2023 Albumin [Mass/Vol] 3.3 g/dL Low 3.5-5.7 [facility] Comment on above: Performed By: #### L [id number] #### [facility] ([facility]) [address] [place] [address] ALP [Catalytic activity/Vol] 26 U/L Low 34-104 [facility] Comment on above: Performed By: #### L [id number] #### [facility] ([facility]) [address] [place] [address] ALT [Catalytic activity/Vol] 50 U/L Normal 7-52 [facility] Comment on above: Performed By: #### L [id number] #### [facility] ([facility] [address] [place] [address] Anion gap [Moles/Vol] 11 mmol/L Normal 7-20 [facility] Comment on above: Performed By: #### L [id number] #### [facility] ([facility]) [address] [place] [address] AST [Catalytic activity/Vol] 18 U/L Normal 13-39 [facility] Comment on above: Performed By: #### L [id number] #### [facility] ([facility]) [address] [place] [address] Bilirubin [Mass/Vol] 0.8 mg/dL Normal 0.3-1.0 [facility] Comment on above: Performed By: #### L [id number] #### [facility] ([facility]) [address] [place] [address] Calcium [Mass/Vol] 8.9 mg/dL Normal 8.6-10.3 [facility] Comment on above: Performed By: #### L [id number] #### [facility] ([facility] [address] [place] [address] Chloride [Moles/Vol] 101 mmol/L Normal 98-107 [facility] Comment on above: Performed By: #### L [id number] #### [facility] ([facility]) [address] [place] [address] CO2 [Moles/Vol] 30 mmol/L Normal 21-31 [facility] Comment on above: Performed By: #### L [id number] #### [facility] ([facility]) [address] [place] [address] Creatinine [Mass/Vol] 0.92 mg/dL Normal 0.70-1.30 [facility] Comment on above: Performed By: #### L [id number] #### [facility] ([facility]) [address] [place] [address] GLOMERULAR FILTRATION RATE ML/MIN/1.73 SQ M.PREDICTED 104.5 mL/min/1.73m*2 Normal >60.0 [facility] Comment on above: Result Comment: The [facility]???s estimated glomerular filtration rate (eGFR) will no longer include consideration of race in its calculation. The National Kidney Foundation???s eGFR Task Force developed new recommendations for the estimation of the glomerular filtration rate in the [place] They recommend immediate implementation of the new equation refit without the race variable in all laboratories because the calculation does not include race. In addition to not including race in the calculation and reporting, it included diversity in its development, and has acceptable performance characteristics and potential consequences that do not disproportionately affect any one group of individuals. Performed By: #### L [id number] #### [facility] ([facility]) [address] [place] [address] Glucose [Mass/Vol] 104 mg/dL High 70-100 [facility] Comment on above: Performed By: #### L [id number] #### [facility] ([facility]) [address] [place] [address] Potassium [Moles/Vol] 3.9 mmol/L Normal 3.5-5.1 [facility] Comment on above: Performed By: #### L [id number] #### [facility] ([facility]) [address] [place] [address] Protein [Mass/Vol] 6.0 g/dL Normal 6.0-8.3 [facility] Comment on above: Performed By: #### L [id number] #### [facility] ([facility]) [address] [place] [address] Sodium [Moles/Vol] 138 mmol/L Normal 136-145 [facility] Comment on above: Performed By: #### L [id number] #### [facility] ([facility]) [address] [place] [address] Urea nitrogen [Mass/Vol] 11 mg/dL Normal 7-25 [facility] Comment on above: Performed By: #### L [id number] #### [facility] ([facility]) [address] [place] [address] UREA NITROGEN/CREATININE (MASS RATIO) IN SER/PLAS 12.0 Normal [facility] Comment on above: Performed By: #### L [id number] #### [facility] ([facility]) [address] [place] [address] MAGNESIUMon 11-06-2023 Magnesium [Mass/Vol] 1.9 mg/dL Normal 1.9-2.7 [facility] Comment on above: Performed By: #### L [id number] ####[facility] ([facility])[address] [place] [address] MANUAL DIFFERENTIALon 2023 BASOPHILS (10*3/UL) IN BLOOD BY CALCULATION 0.00 10*3/uL Normal 0.00-0.20 [facility] Comment on above: Performed By: #### L [id number] #### [facility] ([facility]) [address] [place] [address] BASOPHILS/100 LEUKOCYTES IN BLOOD BY AUTOMATED COUNT 0.0 % Normal 0.0-1.0 [facility] Comment on above: Performed By: #### L [id number] #### [facility] ([facility]) [address] [place] [address] EOSINOPHILS (10*3/UL) IN BLOOD BY CALCULATION 0.04 10*3/uL Normal 0.00-0.50 [facility] Comment on above: Performed By: #### L [id number] #### [facility] ([facility]) [address] [place] [address] EOSINOPHILS/100 LEUKOCYTES IN BLOOD BY AUTOMATED COUNT 0.7 % Normal 0.0-6.0 [facility] Comment on above: Performed By: #### L [id number] #### [facility] ([facility]) [address] [place] [address] LYMPHOCYTES (10*3/UL) IN BLOOD BY CALCULATION 1.21 10*3/uL Normal 1.20-4.00 [facility] Comment on above: Performed By: #### L [id number] #### [facility] ([facility]) [address] [place] [address] LYMPHOCYTES/100 LEUKOCYTES IN BLOOD BY AUTOMATED COUNT 21.9 % Normal 20.0-45.0 [facility] Comment on above: Performed By: #### L [id number] #### [facility] ([facility]) [address] [place] [address] MONOCYTES (10*3/UL) IN BLOOD BY CALCUATION 0.64 10*3/uL Normal 0.10-1.00 [facility] Comment on above: Performed By: #### L [id number] #### [facility] ([facility]) [address] [place] [address] MONOCYTES/100 LEUKOCYTES IN BLOOD BY AUTOMATED COUNT 11.6 % Normal 5.0-12.0 [facility] Comment on above: Performed By: #### L [id number] #### [facility] ([facility]) [address] [place] [address] MYELOCYTES (10*3/UL) IN BLOOD BY CALCULATION 0.08 10*3/uL High 0.00 [facility] Comment on above: Performed By: #### L [id number] #### [facility] ([facility]) [address] [place] [address] MYELOCYTES/100 LEUKOCYTES IN BLOOD CELLAVISION 1.4 % High 0.0-0.0 [facility] Comment on above: Performed By: #### L [id number] #### [facility] ([facility]) [address] [place] [address] NEUTROPHILS (10*3/UL) IN BLOOD BY CALCULATION 3.5 10*3/uL Normal 1.6-7.6 [facility] Comment on above: Performed By: #### L [id number] #### [facility] ([facility]) [address] [place] [address] NEUTROPHILS/100 LEUKOCYTES IN BLOOD BY AUTOMATED COUNT 63.7 % Normal 40.0-72.0 [facility] Comment on above: Performed By: #### L [id number] #### [facility] ([facility]) [address] [place] [address] NUCLEATED RED BLOOD CELLS IN BLOOD BY LIGHT MICROSCOPY Present Normal [facility] Comment on above: Performed By: #### L [id number] #### [facility] ([facility]) [address] [place] [address] PLASMA CELLS/100 LEUKOCYTES IN BLOOD 0 % Normal 0 [facility] Comment on above: Performed By: #### L [id number] #### [facility] ([facility]) [address] [place] [address] PLATELETS GIANT PRESENCE IN BLOOD BY LIGHT MICROSCOPY Present Normal [facility] Comment on above: Performed By: #### L [id number] #### [facility] ([facility]) [address] [place] [address] PROMYELOCYTES (10*3/UL) IN BLOOD BY CALCULATION 0.04 10*3/uL High 0.00 [facility] Comment on above: Performed By: #### L [id number] #### [facility] ([facility]) [address] [facility] [place] [address] PROMYELOCYTES/100 LEUKOCYTES IN BLOOD CELLAVISION 0.7 % High 0.0-0.0 [facility] Comment on above: Performed By: #### L [id number] #### [facility] ([facility]) [address] [place] [address] VARIANT LYMPHOCYTES (10*3/UL) IN BLOOD BY CALCULATION 0.00 10*3/uL Normal 0.00 [facility] Comment on above: Performed By: #### L [id number] #### [facility] ([facility]) [address] [place] [address] VARIANT LYMPHOCYTES/100 LEUKOCYTES IN BLOOD CELLAVISION 0.0 % Normal 0.0-0.0 [facility] Comment on above: Performed By: #### L [id number] #### [facility] ([facility]) [address] [place] [address] NURSNOTEon 11-06-2023 NURSNOTE Patient Name: Arvin Julien : 1980 Primary Care Physician: Lai Sprague MD Admission Date: 11/04/2023 RAPID RESPONSE TEAM ICU TRANSFER FOLLOW-UP NOTE SUBJECTIVE / OBJECTIVE: Follow-up for previous transfer out of the ICU notification for 11/04 at 1813. ASSESSMENT / INTERVENTIONS: Recent Vital Signs: Vitals: 11/06/23 0700 11/06/23 0725 11/06/23 0900 11/06/23 1110 BP: 85/59 (!) 103/91 98/76 BP Location: Patient Position: Pulse: 101 (!) 114 (!) 123 106 Resp: 10 16 21 Temp: TempSrc: SpO2: Weight: Latest Labs: Lab Results Component Value Date WBC 5.54 11/06/2023 WBC 5.87 11/05/2023 HGB 10.1 (L) 11/06/2023 HGB 10.5 (L) 11/05/2023 HCT 30.6 (L) 11/06/2023 HCT 32.6 (L) 11/05/2023 MCV 91.1 11/06/2023 MCV 92.9 11/05/2023 PLT 203 11/06/2023 PLT 228 11/05/2023 NEUTROABS 3.5 11/06/2023 NEUTROABS 3.8 11/05/2023 Lab Results Component Value Date GLUCOSE 104 (H) 11/06/2023 GLUCOSE 100 11/05/2023 CALCIUM 8.9 11/06/2023 CALCIUM 8.5 (L) 11/05/2023 NA 138 11/06/2023 NA 136 11/05/2023 K 3.9 11/06/2023 K 3.9 11/05/2023 CO2 30 11/06/2023 CO2 28 11/05/2023 CL 101 11/06/2023 CL 100 11/05/2023 BUN 11 11/06/2023 BUN 9 11/05/2023 CREATININE 0.92 11/06/2023 CREATININE 0.90 11/05/2023 EGFR 104.5 11/06/2023 EGFR 107.3 11/05/2023 BCR 12.0 11/06/2023 BCR 10.0 11/05/2023 Lab Results Component Value Date MG 1.9 11/06/2023 MG 1.9 11/05/2023 Lab Results Component Value Date PHOS 4.3 11/06/2023 PHOS 3.4 11/05/2023 Lab Results Component Value Date ALT 50 11/06/2023 ALT 69 (H) 11/05/2023 AST 18 11/06/2023 AST 30 11/05/2023 ALKPHOS 26 (L) 11/06/2023 ALKPHOS 32 (L) 11/05/2023 BILITOT 0.8 11/06/2023 BILITOT 0.7 11/05/2023 No results found for: INR Follow-up: Spoke with patient and primary RN. Patient resting in bed, eating breakfast. Vitals and labs are stable. No concerns at this time. Encouraged to reach out with any changes. Clayton Rodriguez RN Rapid Response Team Nurse [phone] 11/06/2023 11:24 AM Normal [facility] NURSNOTE Patient Name: Arvin Julien : 1980 Primary Care Physician: Provided None, Admission Date: 11/04/2023 RAPID RESPONSE TEAM ICU TRANSFER FOLLOW-UP NOTE SUBJECTIVE / OBJECTIVE: Follow-up for previous transfer out of the ICU notification for 11/04 at 18:13. ASSESSMENT / INTERVENTIONS: Recent Vital Signs: Vitals: 11/05/23 2113 11/05/23 2200 11/05/23 2230 11/06/23 0000 BP: (!) 130/100 108/89 (!) 125/91 103/67 BP Location: Right arm Patient Position: Lying Pulse: (!) 160 (!) 132 (!) 127 104 Resp: 16 16 13 Temp: 36.4 ???C (97.5 ???F) TempSrc: Temporal SpO2: 96% Latest Labs: Lab Results Component Value Date WBC 5.87 11/05/2023 HGB 10.5 (L) 11/05/2023 HCT 32.6 (L) 11/05/2023 MCV 92.9 11/05/2023 PLT 228 11/05/2023 NEUTROABS 3.8 11/05/2023 Lab Results Component Value Date GLUCOSE 100 11/05/2023 GLUCOSE 114 (H) 11/05/2023 CALCIUM 8.5 (L) 11/05/2023 CALCIUM 8.3 (L) 11/05/2023 NA 136 11/05/2023 NA 136 11/05/2023 K 3.9 11/05/2023 K 3.6 11/05/2023 CO2 28 11/05/2023 CO2 27 11/05/2023 CL 100 11/05/2023 CL 102 11/05/2023 BUN 9 11/05/2023 BUN 13 11/05/2023 CREATININE 0.90 11/05/2023 CREATININE 1.00 11/05/2023 EGFR 107.3 11/05/2023 EGFR 94.6 11/05/2023 BCR 10.0 11/05/2023 BCR 13.0 11/05/2023 Lab Results Component Value Date MG 1.9 11/05/2023 MG 1.7 (L) 11/05/2023 Lab Results Component Value Date PHOS 3.4 11/05/2023 PHOS 3.5 11/05/2023 Lab Results Component Value Date ALT 69 (H) 11/05/2023 AST 30 11/05/2023 ALKPHOS 32 (L) 11/05/2023 BILITOT 0.7 11/05/2023 No results found for: INR Follow-up: Patient resting in bed comfortably at time of follow-up and in no apparent distress. Her HR was elevated earlier in the evening, but has since come back down after administration of her night time scheduled medications; currently rate controlled a-fib at 104. Otherwise, vital signs have been stable since transfer out of the ICU and lab work was largely unremarkable. I spoke with the primary nurse who reported no other questions or concerns at this time, but encouraged to reach out to [employer] if anything changes. Fermin Dimas RN Rapid Response Team Nurse [phone] 11/06/2023 12:48 AM Normal [facility] PHOSPHORUSon 11-06-2023 Magnesium [Mass/Vol] 4.3 mg/dL Normal 2.5-5.0 [facility] Comment on above: Performed By: #### L [id number] #### [facility] ([facility]) [address] [place] [address] 30on 11-05-2023 30 The patient is Moder ately Stable - Low risk of patient condition declining or worsening The patient's goals for the shift include better hr The clinical goals for the shift include stable vs Problem: Pain - Adult Goal: Verbalizes/displays adequate comfort level or baseline comfort level Outcome: Progressing Problem: Safety - Adult Goal: Free from fall injury Outcome: Progressing Flowsheets (Taken 11/05/20232112) Free from fall injury: Assess patient frequently for physical needs Identify cognitive and physical deficits and behaviors that affect risk of falls [place] fall precautions as indicated by assessment Educate patient/family on patient safety, including physical limitations Instruct patient to call for assistance with activity based on assessment Modify environment to reduce risk of injury Consider OT/PT consult to assist with strengthening/mobility Problem: Discharge Planning Goal: Discharge to home or other facility with appropriate resources Outcome: Progressing Flowsheets (Taken 11/05/20232112) Discharge to home or other facility with appropriate resources: Identify barriers to discharge with patient and caregiver Arrange for needed discharge resources and transportation as appropriate Identify discharge learning needs (meds, wound care, etc) Arrange for interpreters to assist at discharge as needed Refer to discharge planning if patient needs post-hospital services based on physician order or complex needs related to functional status, cognitive ability or social support system Problem: Chronic Conditions and Co-morbidities Goal: Patient's chronic conditions and co-morbidity symptoms are monitored and maintained or improved Outcome: Progressing Flowsheets (Taken 11/05/20232112) Care Plan - Patient's Chronic Conditions and Co-Morbidity Symptoms are Monitored and Maintained or Improved: Monitor and assess patient's chronic conditions and comorbid symptoms for stability, deterioration, or improvement Collaborate with multidisciplinary team to address chronic and comorbid conditions and prevent exacerbation or deterioration Update acute care plan with appropriate goals if chronic or comorbid symptoms are exacerbated and prevent overall improvement and discharge Problem: Pain Goal: LTG-Verbalize decrease in pain Outcome: Progressing Goal: LTG-Demostrate that the pain does not impair ADLs Outcome: Progressing Goal: STG-Pt will verbalize decreased discomfort Outcome: Progressing Problem: Infection Goal: LTG-No signs/symptoms of infection Outcome: Progressing Goal: LTG-Pt free of complications from infection Outcome: Progressing Goal: STG-Will allow for vitals check two times daily Outcome: Progressing Normal [facility] 30 The patient is Moder ately Unstable - Medium risk of patient condition declining or worsening The patient's goals for the shift include The clinical goals for the shift include get better Over the shift, the patient did not make progress toward the following goals. Barriers to progression include N/A. Recommendations to address these barriers include N/A. Normal [facility] BASIC METABOLIC PANELon - Anion gap [Moles/Vol] 12 mmol/L Normal 7-20 [facility] Comment on above: Performed By: #### L [id number] #### [facility] ([facility]) [address] [place] [address] Calcium [Mass/Vol] 8.5 mg/dL Low 8.6-10.3 [facility] Comment on above: Performed By: #### L [id number] #### [facility] ([facility]) [address] [place] [address] Chloride [Moles/Vol] 100 mmol/L Normal 98-107 [facility] Comment on above: Performed By: #### L [id number] #### [facility] ([facility]) [address] [place] [address] CO2 [Moles/Vol] 28 mmol/L Normal 21-31 [facility] Comment on above: Performed By: #### L [id number] #### [facility] ([facility]) [address] [place] [address] Creatinine [Mass/Vol] 0.90 mg/dL Normal 0.70-1.30 [facility] Comment on above: Performed By: #### L [id number] #### [facility] ([facility]) [address] [place] [address] GLOMERULAR FILTRATION RATE ML/MIN/1.73 SQ M.PREDICTED 107.3 mL/min/1.73m*2 Normal >60.0 [facility] Comment on above: Result Comment: The [facility]???s estimated glomerular filtration rate (eGFR) will no longer include consideration of race in its calculation. The National Kidney Foundation???s eGFR Task Force developed new recommendations for the estimation of the glomerular filtration rate in the [place] They recommend immediate implementation of the new equation refit without the race variable in all laboratories because the calculation does not include race. In addition to not including race in the calculation and reporting, it included diversity in its development, and has acceptable performance characteristics and potential consequences that do not disproportionately affect any one group of individuals. Performed By: #### L [id number] #### [facility] ([facility]) [address] [place] [address] Glucose [Mass/Vol] 100 mg/dL Normal 70-100 [facility] Comment on above: Performed By: #### L [id number] #### [facility] ([facility]) [address] [place] [address] Potassium [Moles/Vol] 3.9 mmol/L Normal 3.5-5.1 [facility] Comment on above: Performed By: #### L [id number] #### [facility] ([facility]) [address] [place] [address] Sodium [Moles/Vol] 136 mmol/L Normal 136-145 [facility] Comment on above: Performed By: #### L [id number] #### [facility] [address] [place] [address] Urea nitrogen [Mass/Vol] 9 mg/dL Normal 7-25 [facility] Comment on above: Performed By: #### L [id number] #### [facility] [address] [place] [address] UREA NITROGEN/CREATININE (MASS RATIO) IN SER/PLAS 10.0 Normal [facility] Comment on above: Performed By: #### L [id number] #### [facility] ([facility]) [address] [place] [address] BLOOD CULTUREon 11-05-2023 Bacteria identified Cx Nom (Bld) No growth at 5 days Normal [facility] Comment on above: Order Comment: From a different site than #1. Performed By: #### L [id number] #### [facility] ([facility]) [address] [place] [address] Bacteria identified Cx Nom (Bld) No growth at 5 days Normal [facility] Comment on above: Performed By: #### L [id number] ####[facility] ([facility] [place] [address] CBC WITH AUTO DIFFERENTIALon 11-05-2023 Erythrocyte distribution width (RBC) [Ratio] 16.8 % High 11.5-15.0 [facility] Comment on above: Performed By: #### L [id number] #### [facility] ([facility]) [address] [place] [address] ERYTHROCYTE MEAN CORPUSCULAR HEMOGLOBIN CONCENTRATION (G/DL) BY AUTOMATED 32.2 g/dL Normal 32.0-35.0 [facility] Comment on above: Performed By: #### L [id number] #### [facility] ([facility]) [address] [place] [address] Hematocrit (Bld) [Volume fraction] 32.6 % Low 39.0-55.0 [facility] Comment on above: Performed By: #### L [id number] #### [facility] ([facility]) [address] [place] [address] Hemoglobin (Bld) [Mass/Vol] 10.5 g/dL Low 13.0-17.0 [facility] Comment on above: Performed By: #### L [id number] #### [facility] ([facility]) [address] [place] [address] MCH (RBC) [Entitic mass] 29.9 pg Normal 27.0-33.0 [facility] Comment on above: Performed By: #### L [id number] #### [facility] ([facility]) [address] [place] [address] MCV (RBC) [Entitic vol] 92.9 fL Normal 82.0-98.0 [facility] Comment on above: Performed By: #### L [id number] #### [facility] ([facility]) [address] [place] [address] NRBC (PER 100 WBCS) BY AUTOMATED COUNT 2.2 % High 0 [facility] Comment on above: Performed By: #### L [id number] #### [facility] ([facility]) [address] [place] [address] PLATELETS (10*3/UL) IN BLOOD AUTOMATED COUNT 228 10*3/uL Normal 150-400 [facility] Comment on above: Performed By: #### L [id number] #### [facility] ([facility]) [address] [place] [address] RBC (Bld) [#/Vol] 3.51 10*6/uL Low 4.20-5.70 [facility] Comment on above: Performed By: #### L [id number] #### [facility] ([facility]) [address] [place] [address] WBC (Bld) [#/Vol] 5.87 10*3/uL Normal 4.00-10.60 [facility] Comment on above: Performed By: #### L [id number] #### [facility] ([facility]) [address] [place] [address] COMPREHENSIVE METABOLIC PANE Adam 11-05-2023 Albumin [Mass/Vol] 3.5 g/dL Normal 3.5-5.7 [facility] Comment on above: Performed By: #### L [id number] ####[facility] ([facility])[address] [place] [address] ALP [Catalytic activity/Vol] 32 U/L Low 34-104 [facility] Comment on above: Performed By: #### L [id number] ####[facility] ([facility])[address] [place] [address] ALT [Catalytic activity/Vol] 69 U/L High 7-52 [facility] Comment on above: Performed By: #### L [id number] ####[facility] ([facility])[address] [place] [address] Anion gap [Moles/Vol] 11 mmol/L Normal 7-20 [facility] Comment on above: Performed By: #### L [id number] ####[facility] ([facility])[address] [place] [address] AST [Catalytic activity/Vol] 30 U/L Normal 13-39 [facility] Comment on above: Performed By: #### L [id number] ####[facility] ([facility])[address] [place] [address] Bilirubin [Mass/Vol] 0.7 mg/dL Normal 0.3-1.0 [facility] Comment on above: Performed By: #### L [id number] ####[facility] ([facility])[address] [place] [address] Calcium [Mass/Vol] 8.3 mg/dL Low 8.6-10.3 [facility] Comment on above: Performed By: #### L [id number] ####[facility] ([facility])[address] [place] [address] Chloride [Moles/Vol] 102 mmol/L Normal 98-107 [facility] Comment on above: Performed By: #### L [id number] ####[facility] ([facility])[address] [place] [address] CO2 [Moles/Vol] 27 mmol/L Normal 21-31 [facility] Comment on above: Performed By: #### L [id number] ####[facility] ([facility])[address] [place] [address] Creatinine [Mass/Vol] 1.00 mg/dL Normal 0.70-1.30 [facility] Comment on above: Performed By: #### L [id number] ####[facility] ([facility])[address] [place] [address] GLOMERULAR FILTRATION RATE ML/MIN/1.73 SQ M.PREDICTED 94.6 mL/min/1.73m*2 Normal >60.0 [facility] Comment on above: Result Comment: The [facility]???s estimated glomerular filtration rate (eGFR) will no longer include consideration of race in its calculation. The National Kidney Foundation???s eGFR Task Force developed new recommendations for the estimation of the glomerular filtration rate in the [place] They recommend immediate implementation of the new equation refit without the race variable in all laboratories because the calculation does not include race. In addition to not including race in the calculation and reporting, it included diversity in its development, and has acceptable performance characteristics and potential consequences that do not disproportionately affect any one group of individuals. Performed By: #### L [id number] ####[facility] ([facility])[address] [place] [address] Glucose [Mass/Vol] 114 mg/dL High 70-100 [facility] Comment on above: Performed By: #### L [id number] ####[facility] ([facility])[address] [place] [address] Potassium [Moles/Vol] 3.6 mmol/L Normal 3.5-5.1 [facility] Comment on above: Performed By: #### L [id number] ####[facility] ([facility])[address] [facility] [place] [address] Protein [Mass/Vol] 6.1 g/dL Normal 6.0-8.3 [facility] Comment on above: Performed By: #### L [id number] ####[facility] ([facility])[address] [place] [address] Sodium [Moles/Vol] 136 mmol/L Normal 136-145 [facility] Comment on above: Performed By: #### L [id number] ####[facility] ([facility])[address] [place] [address] Urea nitrogen [Mass/Vol] 13 mg/dL Normal 7-25 [facility] Comment on above: Performed By: #### L [id number] ####[facility] ([facility])[address] [place] [address] UREA NITROGEN/CREATININE (MASS RATIO) IN SER/PLAS 13.0 Normal [facility] Comment on above: Performed By: #### L [id number] ####[facility] ([facility])[address] [place] [address] CONSULTon 11-05-2023 CONSULT ------- Attestation signed by Sukhwinder Schafer MD at 11/05/2023 4:57 PM (Updated) I personally saw and examined the patient on the same date of service as resident/fellow Dr Cervantes. I discussed the findings and therapeutic plan with the resident/fellow Dr Cervantes. I agree with the documentation, except for any edits/updates below. Teaching Physician's Revisions: As below Summary the patient has history of lung cancer, persistent atrial fibrillation, he failed cardioversion in the past, chronic heart failure with preserved ejection fraction He was transferred from [facility] due to multifocal pneumonia. He was also noted to be in A-fib with RVR. He was treated initially with Cardizem which was discontinued continued after his echo showed low ejection fraction 35 to 40% therefore Cardizem was switched to amiodarone IV infusion, his heart rate still in the 110-120. X-rays show evidence of congestive heart failure small right pleural effusion. He was started on Lasix IV and he is already -3.7 L on fluid balance On exam lungs are clear to auscultation, he has +1 edema bilaterally I do not think there is a role for amiodarone here Will discontinue amiodarone and increase his metoprolol to 100 mg p.o. twice daily for heart rate control. We can continue to increase beta-marcio as needed for rate control as long as blood pressure tolerates that. It can be switched later to Toprol-XL given left ventricular dysfunction. We also may consider digoxin if needed Continue diuresing with Lasix with close follow-up of weight and fluid balance Add Aldactone and watch renal function and potassium level May consider adding Entresto Repeat chest x-ray in the morning Sukhwinder Schafer MD, [facility] Cardiology Consult Note Reason for Consult: Atrial fibrillation with RVR HPI: Arvin Julien is a 43 y.o. male past medical history of stage IV lung cancer on Abraxane/carboplatin, persistent atrial fibrillation on metoprolol/Eliquis s/p failed cardioversion, chronic heart failure with preserved ejection fraction EF 50 to 55%, History of opioid dependence on Suboxone who presented as a transfer from [facility] due to sepsis and multifocal pneumonia. patient presented to outside hospital due to generalized weakness and was found to have multifocal pneumonia. Cardiology was consulted due to atrial fibrillation with uncontrolled rates going up to 180s 190s. Patient was initially treated with diltiazem which was later discontinued due to concerns for low ejection fraction of 40%. Patient was then started on amiodarone infusion for further management. Most recent outpatient cardiology note, patient had recurrence of atrial fibrillation on moderate dose amiodarone even after attempted cardioversion. Patient apparently felt worse in sinus rhythm and decision was made to focus primarily on rate control. Cardiology was consulted due to atrial fibrillation with uncontrolled rates. On my evaluation, patient was lying comfortably in bed. Patient denied any chest pain, shortness of breath, dizziness or lightheadedness. Patient reports feeling palpitations occasionally but denies any syncopal events. Patient states that he has not been taking his medications as prescribed occasionally. Patient reports being compliant with his Eliquis. Cardiology ROS: Review of Systems Constitutional: Positive for chills and fever. Cardiovascular: Positive for irregular heartbeat, leg swelling, orthopnea and palpitations. Negative for chest pain, dyspnea on exertion and paroxysmal nocturnal dyspnea. Respiratory: Positive for shortness of breath. Negative for cough. Gastrointestinal: Negative for abdominal pain, nausea and vomiting. Neurological: Negative for dizziness and light-headedness. Past Medical History He has a past medical history of Anxiety, Arrhythmia, Atrial fibrillation ([facility]), Drug abuse ([facility]), GERD (gastroesophageal reflux disease), Irregular heart beat, Pulmonary mass, Shortness of breath, and Sleep apnea. Surgical History He has a past surgical history that includes Tonsillectomy; Carpal tunnel release (Bilateral, 2019); and Uvulopalatopharyngoplasty (01/2017). Social History He reports that he quit smoking about 18 months ago. His smoking use included cigarettes. He has never used smokeless tobacco. He reports that he does not currently use alcohol. He reports that he does not currently use drugs after having used the following drugs: Heroin. Family History Family History Family history unknown: Yes Allergies Patient has no known allergies. Medications Medications Prior to Admission Medication Sig Dispense Refill Last Dose apixaban (Eliquis) 5 mg tablet Take 5 mg by mouth twice a day. buprenorphine-naloxone (Suboxone) 8-2 mg [facility] (more content not included)... [facility] CONSULT ------- Attestation signed by Sharon Awad MD at 11/05/2023 11:19 PM By using the attestations below, the signing clinician agrees that I have read and verify that the documentation has been personally reviewed by me and ensurl get with primary the documentation accurately reflects the encounter. GC: I personally saw this patient on the day of the encounter, performed the null portion(s) of the service and participated in the management and confirm the resident's documentation. Please note there may be an additional personal documentation from me. Additional Comments: Patient I with pneumonia on RX by pulmonology . Will need restaging studies and will get with his primary onc Dr Gonzalez.. No cytopenia and will see primary onc prior to his next treatment Sharon Awad MD Inpatient Hematology Oncology Fellow availability Tuesday - 830am-500pm, Tuesday 830am-430pm and Tuesday 830am-1200pm During these hours, Please contact Hematology Oncology Fellow through [employer] For Hematology Oncology needs on weekends and after hours, please page the on-call fellow through the hospital refinery pipeline operator. NEW INPATIENT HEMATOLOGY / ONCOLOGY CONSULT NOTE Patient ID: Arvin Julien, 43 y.o. male Requested by: Shaikh Camarena MD PCP: Provided None, : 1980 REASON FOR CONSULTATION: Squamous cell Carcinoma of lung CHIEF COMPLAINT: No chief complaint on file. HISTORY OF PRESENT ILLNESS: Arvin Julien is a 43 y.o. 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 Patient was admitted at [place] since 11/01. He has been getting excessively fatigue, shortness of breath with minimal exertion and cough with blood-tinged sputum. Oncologic history: He was status post 4 cycles of carboplatin/paclitaxel, carboplatin with AUC of 6. After 4 cycles of combined treatment, he was maintained on Keytruda only. In october 2022 showed excellent response to treatment. Unfortunately, February 2023 showed new left supraclavicular lymph node and mediastinal lymph node. Repeat CT scan of the neck and chest March 2023 showed further disease progression with enlarging subcarinal lymphadenopathy, left supraclavicular lymph nodes and new pulmonary nodules. The patient's last dose of Keytruda treatment was 06/13/2023. He requests to hold treatment due to atrial fibrillation cardiac procedures. Carboplatin/paclitaxel was resumed 08/2023 (grade 3 skin rash from paclitaxel) PAST HEMATOLOGY / ONCOLOGY HISTORY: Oncology History No history exists. REVIEW OF SYSTEMS: Complete 10-point ROS is negative except as mentioned in HPI. MEDICAL HISTORY: Past Medical History: Diagnosis Date Anxiety Arrhythmia Atrial fibrillation (CMS/HCC) Drug abuse (CMS/HCC) GERD (gastroesophageal reflux disease) Irregular heart beat Pulmonary mass Shortness of breath Sleep apnea USES C-PAP SURGICAL HISTORY: Past Surgical History: Procedure Laterality Date CARPAL TUNNEL RELEASE Bilateral 2020 TONSILLECTOMY UVULOPALATOPHARYNGOPLASTY 01/2017 FAMILY HISTORY: Family History Family history unknown: Yes SOCIAL HISTORY: Social History Socioeconomic History Marital status: Other Spouse name: Not on file Number of children: Not on file Years of education: Not on file Highest education level: Not on file Occupational History Not on file Tobacco Use Smoking status: Former Types: Cigarettes Quit date: 04/2022 Years since quittin.5 Smokeless tobacco: Never Vaping Use Vaping Use: Never used Substance and Sexual Activity Alcohol use: Not Currently Drug use: Not Currently Types: Heroin Comment: QUIT 2014 Sexual activity: Not on file Other Topics Concern Not on file Social History Narrative Not on file Social Determinants of Health Financial Resource Strain: Low Risk (11/05/2023) Overall Financial Resource Strain (CARDIA) Difficulty of Paying Living Expenses: Not very hard Food Insecurity: No Food Insecurity (11/05/2023) Hunger Vital Sign Worried About Running Out of Food in the Last Year: Never true Ran Out of Food in the Last Year: Not on file Transportation Needs: No Transportation Needs (11/05/2023) Transportation Lack of Transportation (Medical): No Lack of Transportation (Non-Medical): Not on file Physical Activity: Not on file Stress: Not on file Social Connections: Not on file Intimate Partner Violence: Unknown (11/05/2023) Humiliation, Afraid, Rape, and Kick questionnaire (more content not included)... Normal [facility] HPon 11-05-2023 HP ------- Attestation signed by Galdino Frye MD at 11/05/2023 11:41 AM I reviewed the salient portions of the patient history. I have seen and examined the patient during rounds with the resident/fellow. I repeated the null components of the exam. Agree with the noted assessment and plan. Galdino Frye MD [facility] Pulmonary interventional and Critical Care Medicine Medical ICU History & Physical Patient - Arvin Julien Age - 43 y.[facility]. [facility] 1980 [id number] Date of Admission - 11/04/2023 11:27 PM Chief Complaint Worsening dyspnea and fatigue EEG History of Present Illness Arvin Julien is a 43 y.o. male with medical history significant for stage IV lung squamous cell carcinoma on Abraxane and carboplatin (last dose was on 10/25,), A-fib on metoprolol and Eliquis, CHF with preserved EF and remote history of opioid dependence currently on Suboxone who is transferred from [facility] because of difficult to control atrial fibrillation and sepsis from pneumonia. Patient was admitted at [place] since 11/01 and stayed there for 3 days then was transferred to us. Patient states he has been complaining of excessive fatigue since his last chemo on 10/25 which got progressively worse, worsening shortness of breath with minimal exertion and cough productive of yellow sputum initially which became dark red and shayne after starting antibiotics while in the hospital. Initial workup showed that patient had bilateral pneumonia which can also be progression of lung cancer according to CTA chest report. Patient has been afebrile with no leukocytosis probably as he is immunocompromised from chemotherapy. Patient was managed with IV Rocephin azithromycin and Levaquin. No significant improvement Regarding A-fib, heart rate was up to 180 and 190, was managed with diltiazem bolus followed by infusion then there was a concern of low EF, around 40%, so he was switched to amiodarone on 11/03. At home he takes metoprolol around 200 mg daily. Patient was also managed with fluid boluses he received total of 2 L of normal saline despite the presence of extremities edema. Patient was also managed with Lasix IV Labs and images at [facility]: CBC: WBC 7.4, hemoglobin 11.1, platelets 194. BMP: Sodium 132, potassium 3.7, chloride 96, CO2 27 anion gap 12.6, BUN 6, creatinine 1.02, glucose 174, calcium 9.0. Magnesium 1.6 LFT: Total bilirubin 1.5, AST 16, ALT 50, alkaline phosphatase 33, albumin 3.3, protein 7.0 NT proBNP: 1292 EKG: A-fib, rate 190, right axis deviation probably from right fascicular Joaquim block. No ischemic changes Troponin negative Respiratory panel PCR: Negative for all viruses including SARS-CoV-2, RSV, influenza A and B Blood cultures: No growth at 36 to 48 hours x 2 CTA chest: No central PE. Bilateral multifocal parenchymal infiltrates, multifocal pneumonia is favored however recurrent malignancy is not excluded. 7.5 cm right and 1.3 cm left pleural effusion PMH: has a past medical history of Anxiety, Arrhythmia, Atrial fibrillation (CMS/HCC), Drug abuse (CMS/HCC), GERD (gastroesophageal reflux disease), Irregular heart beat, Pulmonary mass, Shortness of breath, and Sleep apnea. PSH: has a past surgical history that includes Tonsillectomy; Carpal tunnel release (Bilateral, 2019); and Uvulopalatopharyngoplasty (01/2017). SH: reports that he quit smoking about 18 months ago. His smoking use included cigarettes. He has never used smokeless tobacco. He reports that he does not currently use alcohol. He reports that he does not currently use drugs after having used the following drugs: Heroin. Alc/Tobacco/Drug: reports that he does not currently use alcohol. reports that he quit smoking about 18 months ago. His smoking use included cigarettes. He has never used smokeless tobacco. reports that he does not currently use drugs after having used the following drugs: Heroin. Medications: Medication Documentation Review Audit Reviewed by Domitila Harrington RN (Registered Nurse) on 07/16/22 at 1343 Medication Order Taking? Sig Documenting Provider Last Dose Status apixaban (Eliquis) 5 mg tablet [id number] Yes Take 5 mg by mouth twice a day. Historical Provider, Past Week Active buprenorphine-naloxone (Suboxone) 8-2 mg SL film [id number] Yes dissolve 1 FILM under the tongue twice a day Historical Provider, 07/16/2022 Active buprenorphine-naloxone (Suboxone) 8-2 mg SL tablet [id number] Yes Place 1 tablet under the tongue in the morning. Historical Provider, Active Eliquis 5 mg tablet [id number] take 1 tablet by mouth every morning and BEFORE BEDTIME Historical Provider, Active furosemide (Lasix) 20 mg tablet [id number] Yes Take 20 mg by mouth in the morning. Histor (more content not included)... Normal [facility] LACTIC ACID WITH 4 HOUR REFL EXon 11-05-2023 LACTATE (MMOL/L) IN SER/PLAS 1.1 mmol/L Normal 0.5-2.2 [facility] Comment on above: Performed By: #### L [id number] ####[facility] ([facility]AKER)[address] [place] [address] LEGIONELLA ANTIGEN, URINEon 11-05-2023 LEGIONELLA AG, UR Negative Normal [facility] Comment on above: Result Comment: L. p neumophila serogroup 1 antigen not detected. A negative result does not exclude infection with Leginella pnemophila serogroup 1 nor does it rule out other microbial-caused respiratory infections of disease caused by other serogroups of Legionella pneumophila. Test Performed by [employer] [address] [place] [address] - Released 11/05/2023 13:30 Performed By: #### L [id number] #### [facility] [address] [place] [address] MAGNESIUMon 11-05-2023 Magnesium [Mass/Vol] 1.9 mg/dL Normal 1.9-2.7 [facility] Comment on above: Performed By: #### L [id number] #### [facility] ([facility]) [address] [place] [address] Magnesium [Mass/Vol] 1.7 mg/dL Low 1.9-2.7 [facility] Comment on above: Performed By: #### L [id number] #### [facility] ([facility]) [address] [place] [address] MANUAL DIFFERENTIALon 2023 BASOPHILS (10*3/UL) IN BLOOD BY CALCULATION 0.04 10*3/uL Normal 0.00-0.20 [facility] Comment on above: Performed By: #### L [id number] #### [facility] ([facility]) [address] [place] [address] BASOPHILS/100 LEUKOCYTES IN BLOOD BY AUTOMATED COUNT 0.7 % Normal 0.0-1.0 [facility] Comment on above: Performed By: #### L [id number] #### [facility] ([facility]) [address] [place] [address] EOSINOPHILS (10*3/UL) IN BLOOD BY CALCULATION 0.00 10*3/uL Normal 0.00-0.50 [facility] Comment on above: Performed By: #### L [id number] #### [facility] ([facility]) [address] [place] [address] EOSINOPHILS/100 LEUKOCYTES IN BLOOD BY AUTOMATED COUNT 0.0 % Normal 0.0-6.0 [facility] Comment on above: Performed By: #### L [id number] #### [facility] ([facility]) [address] [place] [address] LYMPHOCYTES (10*3/UL) IN BLOOD BY CALCULATION 1.42 10*3/uL Normal 1.20-4.00 [facility] Comment on above: Performed By: #### L [id number] #### [facility] ([facility]) [address] [place] [address] LYMPHOCYTES/100 LEUKOCYTES IN BLOOD BY AUTOMATED COUNT 24.2 % Normal 20.0-45.0 [facility] Comment on above: Performed By: #### L [id number] #### [facility] ([facility]) [address] [place] [address] METAMYELOCYTES (10*3/UL) IN BLOOD BY CALCULATION 0.12 10*3/uL High 0.00 [facility] Comment on above: Performed By: #### L [id number] #### [facility] ([facility]) [address] [place] [address] METAMYELOCYTES/100 LEUKOCYTES IN BLOOD CELLAVISION 2.0 % High 0.0-0.0 [facility] Comment on above: Performed By: #### L [id number] #### [facility] ([facility]) [address] [place] [address] MONOCYTES (10*3/UL) IN BLOOD BY CALCUATION 0.43 10*3/uL Normal 0.10-1.00 [facility] Comment on above: Performed By: #### L [id number] #### [facility] ([facility]) [address] [place] [address] MONOCYTES/100 LEUKOCYTES IN BLOOD BY AUTOMATED COUNT 7.4 % Normal 5.0-12.0 [facility] Comment on above: Performed By: #### L [id number] #### [facility] ([facility]) [address] [place] [address] MYELOCYTES (10*3/UL) IN BLOOD BY CALCULATION 0.08 10*3/uL High 0.00 [facility] Comment on above: Performed By: #### L [id number] #### [facility] ([facility]) [address] [place] [address] MYELOCYTES/100 LEUKOCYTES IN BLOOD CELLAVISION 1.3 % High 0.0-0.0 [facility] Comment on above: Performed By: #### L [id number] #### [facility] ([facility]) [address] [place] [address] NEUTROPHILS (10*3/UL) IN BLOOD BY CALCULATION 3.8 10*3/uL Normal 1.6-7.6 [facility] Comment on above: Performed By: #### L [id number] #### [facility] ([facility]) [address] [place] [address] NEUTROPHILS/100 LEUKOCYTES IN BLOOD BY AUTOMATED COUNT 64.4 % Normal 40.0-72.0 [facility] Comment on above: Performed By: #### L [id number] #### [facility] ([facility]) [address] [place] [address] NUCLEATED RED BLOOD CELLS IN BLOOD BY LIGHT MICROSCOPY Present Normal [facility] Comment on above: Performed By: #### L [id number] #### [facility] ([facility]) [address] [place] [address] PLASMA CELLS/100 LEUKOCYTES IN BLOOD 0 % Normal 0 [facility] Comment on above: Performed By: #### L [id number] #### [facility] ([facility]) [address] [place] [address] TOXIC GRANULES PRESENCE IN BLOOD BY LIGHT MICROSCOPY Slight Normal [facility] Comment on above: Performed By: #### L [id number] #### [facility] ([facility]) [address] [place] [address] VARIANT LYMPHOCYTES (10*3/UL) IN BLOOD BY CALCULATION 0.00 10*3/uL Normal 0.00 [facility] Comment on above: Performed By: #### L [id number] #### [facility] ([facility]) [address] [place] [address] VARIANT LYMPHOCYTES/100 LEUKOCYTES IN BLOOD CELLAVISION 0.0 % Normal 0.0-0.0 [facility] Comment on above: Performed By: #### L [id number] #### [facility] ([facility]) [address] [place] [address] MYCOPLASMA PNEUMONIAE ANTIBO DY, IGMon 11-05-2023 MYCOPLASMA PNEUMONIAE IGM 0.04 U/L Normal <=0.76 [facility] Comment on above: Result Comment: INTE RPRETIVE INFORMATION: Mycoplasma pneumoniae Ab, IgM 0.76 U/L or less .......... Negative: No clinically significant amount of M. pneumoniae IgM antibody detected. 0.77 - 0.95 U/L ........... Low Positive: M. pneumoniae- specific IgM presumptively detected. Collection of a follow-up sample in 1-2 weeks is recommended to assure reactivity. 0.96 U/L or greater ....... Positive: Highly significant amount of M. pneumoniae- specific IgM antibody detected. However, low levels of IgM antibodies may occasionally persist for more than 12 months post-infection. Performed By: [address] [place] [address] Service Station Manager: Leighann Bal MD, PhD CLIA Number: [id number] Performed By: #### L [id number] ####[facility] ([place] [address] PHOSPHORUSon 11-05-2023 Magnesium [Mass/Vol] 3.4 mg/dL Normal 2.5-5.0 [facility] Comment on above: Performed By: #### L [id number] #### [facility] ([facility]) [address] [place] [address] Magnesium [Mass/Vol] 3.5 mg/dL Normal 2.5-5.0 [facility] Comment on above: Performed By: #### L [id number] ####[facility] ([facility])[address] [place] [address] TROPONIN Ion 11-05-2023 Troponin I.cardiac [Mass/Vol] 0.03 ng/mL Normal 0.00-0.04 [facility] Comment on above: Performed By: #### L [id number] ####[facility] ([facility]ER)[address] [facility] [place] [address] CBC AND AUTO DIFFon 10-31-19 Erythrocyte distribution width (RBC) [Ratio] 16.7 % High 11.5-15.0 [facility] Comment on above: Performed By: #### C BCA ####[facility] ([id number])[address] [place] [address] Hematocrit (Bld) [Volume fraction] 34.2 % Low 39-49 [facility] Comment on above: Performed By: #### C BCA ####[facility] ([id number])[address] [place] [address] Hemoglobin (Bld) [Mass/Vol] 11.6 g/dL Low 13.0-17.0 [facility] Comment on above: Performed By: #### C BCA ####[facility] ([id number])[address] [place] [address] Lymphocytes (Bld) [#/Vol] 2.4 10*3/uL Normal 1.0-3.5 [facility] Comment on above: Performed By: #### C BCA ####[facility] ([id number])[address] [place] [address] Lymphocytes/100 WBC (Bld) 58.0 % Normal [facility] Comment on above: Performed By: #### C BCA ####[facility] ([id number])[address] [place] [address] MCH (RBC) [Entitic mass] 30.5 pg Normal 27-34 [facility] Comment on above: Performed By: #### C BCA ####[facility] ([id number])[address] [place] [address] MCHC (RBC) [Mass/Vol] 33.8 g/dL Normal 32-36 [facility] Comment on above: Performed By: #### C BCA ####[facility] ([id number])[address] [place] [address] [place] [address] MCV (RBC) [Entitic vol] 90 fL Normal 80-100 [facility] Comment on above: Performed By: #### C BCA ####[facility] ([id number])[address] [place] [address] Metamyelocytes/100 WBC (Bld) 1.0 % Normal [facility] Comment on above: Performed By: #### C BCA ####[facility] ([id number])[address] [place] [address] Monocytes (Bld) [#/Vol] 0.1 10*3/uL Normal 0-0.9 [facility] Comment on above: Performed By: #### C BCA ####[facility] ([id number])[address] [place] [address] Monocytes/100 WBC (Bld) 2.0 % Normal [facility] Comment on above: Performed By: #### C BCA ####[facility] ([id number])[address] [place] [address] [place] [address] MYELOCYTE 2.0 % Normal [facility] Comment on above: Performed By: #### C BCA ####[facility] ([id number])[address] [place] [address] [place] [address] Neutrophils (Bld) [#/Vol] 1.6 10*3/uL Normal 1.5-6.6 [facility] Comment on above: Performed By: #### C BCA ####[facility] ([id number])[address] [place] [address], [place] [address] NUCLEATED RBC 1.0 /100 WBC Normal 0.0-1.0 [facility] Comment on above: Performed By: #### C BCA ####[facility] ([id number])[address] [place] [address] OVALOCYTE 1+ Abnormal NONE [facility] Comment on above: Performed By: #### C BCA ####[facility] ([id number])[address] [place] [address] Platelet mean volume (Bld) [Entitic vol] 8.7 fL Normal 7-12 [facility] Comment on above: Performed By: #### C BCA ####[facility] ([id number])[address] [place] [address] Platelets (Bld) [#/Vol] 159 10*3/uL Normal 150-450 [facility] Comment on above: Performed By: #### C BCA ####[facility] ([id number])[address] [place] [address] RBC COUNT 3.79 X10E12/L Low 4.10-5.70 [facility] Comment on above: Performed By: #### C BCA ####[facility] ([id number])[address] [place] [address] SEG NEUTROPHIL 37.0 % Normal [facility] Comment on above: Performed By: #### C BCA ####[facility] ([id number])[address] [place] [address] WBC (Bld) [#/Vol] 4.2 10*3/uL Normal 4.0-11.0 [facility] Comment on above: Performed By: #### C BCA ####[facility] ([id number])[address] [place] [address] CBC auto differentialon 09-0 Erythrocyte distribution width (RBC) [Ratio] 16.7 % High 11.5 - 15.0 % [facility] Hematocrit (Bld) [Volume fraction] 34.2 % Low 39 - 49 % [facility] Hemoglobin (Bld) [Mass/Vol] 11.6 g/dL Low 13.0 - 17.0 g/dL [facility] Interpretation and review of laboratory results Abnormal [facility] Lymphocytes (Bld) [#/Vol] 2.4 10*3/uL [facility] Lymphocytes/100 WBC (Bld) 58.0 % [facility] MCH (RBC) [Entitic mass] 30.5 pg 27 - 34 pg [facility] MCHC (RBC) [Mass/Vol] 33.8 g/dL 32 - 36 g/dL [facility] MCV (RBC) [Entitic vol] 90 fL 80 - [address] [facility] Metamyelocytes/100 WBC (Bld) 1.0 % [facility] Monocytes (Bld) [#/Vol] 0.1 10*3/uL [facility] Monocytes/100 WBC (Bld) 2.0 % [facility] Myelocytes/100 WBC (Bld) 2.0 % [facility] Neutrophils (Bld) [#/Vol] 1.6 10*3/uL [facility] Nucleated RBC/100 WBC (Bld) [Ratio] 1.0 % [facility] Ovalocytes LM Ql (Bld) 1+ Abnormal NONE^NONE [facility] Platelet mean volume (Bld) [Entitic vol] 8.7 fL 7 - 12 fL [facility] Platelets (Bld) [#/Vol] 159 10*3/uL [facility] RBC (Bld) [#/Vol] 3.79 10*6/uL Low [facility] Segmented neutrophils/100 WBC (Bld) 37.0 % [facility] WBC corrected for nucl RBC Auto (Bld) [#/Vol] 4.2 [facility] CBC AND AUTO DIFFon 10-25-19 24 Eosinophils (Bld) [#/Vol] 0.0 10*3/uL Normal 0.0-0.4 [facility] Comment on above: Performed By: #### C BCA, CMP ####[facility] ([id number])[address] [place] [address] Eosinophils/100 WBC (Bld) 1.0 % Normal [facility] Comment on above: Performed By: #### C SPENCER, CMP ####[facility] ([id number])[address] [place] [address] Erythrocyte distribution width (RBC) [Ratio] 16.1 % High 11.5-15.0 [facility] Comment on above: Performed By: #### C BCA, CMP ####[facility] ([id number])[address] [place] [address] Hematocrit (Bld) [Volume fraction] 33.8 % Low 39-49 [facility] Comment on above: Performed By: #### C SPENCER, CMP ####[facility] ([id number])[address] [place] [address] Hemoglobin (Bld) [Mass/Vol] 11.4 g/dL Low 13.0-17.0 [facility] Comment on above: Performed By: #### C SPENCER, CMP ####[facility] ([id number])[address] [place] [address] Lymphocytes (Bld) [#/Vol] 2.1 10*3/uL Normal 1.0-3.5 [facility] Comment on above: Performed By: #### C BCA, CMP ####[facility] ([id number])[address] [place] [address] Lymphocytes/100 WBC (Bld) 55.0 % Normal [facility] Comment on above: Performed By: #### C BCA, CMP ####[facility] ([id number])[address] [place] [address] MCH (RBC) [Entitic mass] 30.2 pg Normal 27-34 [facility] Comment on above: Performed By: #### C BCA, CMP ####[facility] ([id number])[address] [place] [address] [place] [address] MCHC (RBC) [Mass/Vol] 33.8 g/dL Normal 32-36 [facility] Comment on above: Performed By: #### C BCA, CMP ####[facility] ([id number])[address] [place] [address] MCV (RBC) [Entitic vol] 89 fL Normal 80-100 [facility] [facility] Comment on above: Performed By: #### C BCA, CMP ####[facility] ([id number])[address] [place] [address] 61273 Monocytes (Bld) [#/Vol] 0.1 10*3/uL Normal 0-0.9 [facility] Comment on above: Performed By: #### C SPENCER, CMP ####[facility] ([id number])[address] [place] [address] 26679 Monocytes/100 WBC (Bld) 2.0 % Normal [facility] Comment on above: Performed By: #### C SPENCER, CMP ####[facility] ([id number])[address] [place] [address] 82219 MYELOCYTE 2.0 % Normal [facility] Comment on above: Performed By: #### C BCA, CMP ####[facility] ([id number])[address] [place] [address] 15581 Neutrophils (Bld) [#/Vol] 1.5 10*3/uL Normal 1.5-6.6 [facility] Comment on above: Performed By: #### C BCA, CMP ####[facility] ([id number])[address] [place] [address] [place] [address] NUCLEATED RBC 2.0 /100 WBC High 0.0-1.0 [facility] Comment on above: Performed By: #### C BCA, CMP ####[facility] ([id number])[address] [place] [address] 93797 Platelet mean volume (Bld) [Entitic vol] 8.6 fL Normal 7-12 [facility] Comment on above: Performed By: #### C SPENCER, CMP ####[facility] ([id number])[address] [place] [address] 07049 Platelets (Bld) [#/Vol] 209 10*3/uL Normal 150-450 [facility] Comment on above: Performed By: #### C SPENCER, CMP ####[facility] ([id number])[address] [place] [address] 07776 RBC COUNT 3.78 X10E12/L Low 4.10-5.70 [facility] Comment on above: Performed By: #### Brock PALMER, CMP ####[facility] ([id number])[address] [place] [address] 85022 RBC morphology finding Nom (Bld) REVIEWED Normal [facility] Comment on above: Performed By: #### Brock PALMER, CMP ####[facility] ([id number])[address] [place] [address] [place] [address] SEG NEUTROPHIL 40.0 % Normal [facility] Comment on above: Performed By: #### Brock PALMER, CMP ####[facility] ([id number])[address] [place] [address] 77029 WBC (Bld) [#/Vol] 3.8 10*3/uL Low 4.0-11.0 [facility] Comment on above: Performed By: #### Brock PALMER, CMP ####[facility] ([id number])[address] [place] [address] 52033 CBC auto differentialon 09-0 Eosinophils (Bld) [#/Vol] 0.0 10*3/uL [facility] Eosinophils/100 WBC (Bld) 1.0 % [facility] Erythrocyte distribution width (RBC) [Ratio] 16.1 % High 11.5 - 15.0 % [facility] Hematocrit (Bld) [Volume fraction] 33.8 % Low 39 - 49 % [facility] Hemoglobin (Bld) [Mass/Vol] 11.4 g/dL Low 13.0 - 17.0 g/dL [facility] Interpretation and review of laboratory results Abnormal [facility] Lymphocytes (Bld) [#/Vol] 2.1 10*3/uL [facility] Lymphocytes/100 WBC (Bld) 55.0 % [facility] MCH (RBC) [Entitic mass] 30.2 pg 27 - 34 pg [facility] MCHC (RBC) [Mass/Vol] 33.8 g/dL 32 - 36 g/dL [facility] MCV (RBC) [Entitic vol] 89 fL 80 - 100 fL [facility] Monocytes (Bld) [#/Vol] 0.1 10*3/uL [facility] Monocytes/100 WBC (Bld) 2.0 % [facility] Myelocytes/100 WBC (Bld) 2.0 % [facility] Neutrophils (Bld) [#/Vol] 1.5 10*3/uL [facility] Nucleated RBC/100 WBC (Bld) [Ratio] 2.0 % High [facility] Platelet mean volume (Bld) [Entitic vol] 8.6 fL 7 - 12 fL [facility] Platelets (Bld) [#/Vol] 209 10*3/uL [facility] Polymorphonuclear cells/100 WBC (Bld) REVIEWED [facility] RBC (Bld) [#/Vol] 3.78 10*6/uL Low [facility] Segmented neutrophils/100 WBC (Bld) 40.0 % [facility] WBC corrected for nucl RBC Auto (Bld) [#/Vol] 3.8 Low [facility] COMPREHENSIVE METABOLIC PANE Adam 10-25-2023 Albumin [Mass/Vol] 3.5 g/dL Normal 3.2-5.3 [facility] Comment on above: Performed By: #### C BCA, CMP ####[facility] ([id number])[address] [place] [address], [place] [address] ALP [Catalytic activity/Vol] 35 U/L Low 39-130 [facility] Comment on above: Performed By: #### C BCA, CMP ####[facility] ([id number])[address] [place] [address] [place] [address] ALT [Catalytic activity/Vol] 37 U/L Normal 0-40 [facility] Comment on above: Performed By: #### C BCA, CMP ####[facility] ([id number])[address] [place] [address] [place] [address] Anion gap [Moles/Vol] 8 mmol/L Normal 5-15 [facility] Comment on above: Performed By: #### C BCA, CMP ####[facility] ([id number])[address] [place] [address] [place] [address] AST [Catalytic activity/Vol] 22 U/L Normal 0-41 [facility] Comment on above: Performed By: #### C BCA, CMP ####[facility] ([id number])[address] [place] [address] [place] [address] Bilirubin [Mass/Vol] 0.7 mg/dL Normal 0.3-1.2 [facility] Comment on above: Performed By: #### C BCA, CMP ####[facility] ([id number])[address] [place] [address], [place] [address] Calcium [Mass/Vol] 8.7 mg/dL Normal 8.5-10.5 [facility] Comment on above: Performed By: #### C BCA, CMP ####[facility] ([id number])[address] [place] [address] [place] [address] Chloride [Moles/Vol] 103 mmol/L Normal 98-109 [facility] Comment on above: Performed By: #### C BCA, CMP ####[facility] ([id number])[address] [place] [address] 26988 CO2 [Moles/Vol] 26 mmol/L Normal 22-32 [facility] Comment on above: Performed By: #### C BCA, CMP ####[facility] ([id number])[address] [place] [address] 55385 Creatinine [Mass/Vol] 0.97 mg/dL Normal 0.70-1.20 [facility] Comment on above: Result Comment: METH OD TRACEABLE TO IDMS STANDARD Performed By: #### C BCA, CMP ####[facility] ([id number])[address] [place] [address] 66497 eGFR (CKD-EPI) NON-RACE DEPENDENT >90 Normal >59 [facility] Comment on above: Result Comment: Repo rted eGFR is based on theCKD-EPI 2020 equation that doesnot use a race coefficient. Performed By: #### C BCA, CMP ####[facility] ([id number])[address] [place] [address] 19411 Glucose [Mass/Vol] 78 mg/dL Normal 65-99 [facility] Comment on above: Performed By: #### C BCA, CMP ####[facility] ([id number])[address] [place] [address] 86801 Potassium [Moles/Vol] 3.5 mmol/L Normal 3.5-5.0 [facility] Comment on above: Performed By: #### C BCA, CMP ####[facility] ([id number])[address] [place] [address] [place] [address] Protein [Mass/Vol] 6.1 g/dL Normal 6.0-8.0 [facility] Comment on above: Performed By: #### C BCA, CMP ####[facility] ([id number])[address] [place] [address] 53394 Sodium [Moles/Vol] 137 mmol/L Normal 134-146 [facility] Comment on above: Performed By: #### C BCA, CMP ####[facility] ([id number])[address] [place] [address] 74983 Urea nitrogen [Mass/Vol] 13 mg/dL Normal 5-23 [facility] Comment on above: Performed By: #### C BCA, CMP ####[facility] ([id number])[address] [place] [address] 59897 Comprehensive metabolic pane adam 10-25-2023 Albumin [Mass/Vol] 3.5 g/dL 3.2 - 5.3 g/dL [facility] ALP [Catalytic activity/Vol] 35 U/L Low 39 - 130 U/L [facility] ALT No additional P-5'-P [Catalytic activity/Vol] 37 U/L 0 - 40 U/L [facility] Anion gap [Moles/Vol] 8 mmol/L 5 - 15 mmol/L [facility] AST [Catalytic activity/Vol] 22 U/L 0 - 41 U/L [facility] Bilirubin [Mass/Vol] 0.7 mg/dL 0.3 - 1.2 mg/dL [facility] Calcium [Mass/Vol] 8.7 mg/dL 8.5 - 10. 5 mg/dL [facility] Chloride [Moles/Vol] 103 mmol/L 98 - 109 mmol/L [facility] CO2 [Moles/Vol] 26 mmol/L 22 - 32 mmol/L [facility] Creatinine [Mass/Vol] 0.97 mg/dL 0.70 - 1.20 mg/dL [facility] Comment on above: METHOD TRACEABLE TO IDMS STANDARD eGFR (CKD-EPI)non-race dependent - PINF [facility] Comment on above: Reported eGFR is based on the CKD-EPI 2020 equation that does not use a race coefficient. Glucose [Mass/Vol] 78 mg/dL 65 - 99 mg/dL [facility] Interpretation and review of laboratory results Abnormal [facility] Potassium [Moles/Vol] 3.5 mmol/L 3.5 - 5.0 mmol/L [facility] Protein [Mass/Vol] 6.1 g/dL 6.0 - 8.0 g/dL [facility] Sodium [Moles/Vol] 137 mmol/L 134 - 146 mmol/L [facility] Urea nitrogen [Mass/Vol] 13 mg/dL 5 - 23 mg/dL [facility] CBC AND AUTO DIFFon 10-17-19 ABSOLUTE BASOPHIL 0.0 X10E9/L Normal 0.0-0.2 [facility] Comment on above: Performed By: #### C SPENCER, CMP ####[facility] ([id number])[address] [place] [address] 42987 ABSOLUTE NEUTROPHIL 5.2 X10E9/L Normal 1.5-6.6 [facility] Comment on above: Performed By: #### Brock PALMER, CMP ####[facility] ([id number])[address] [place] [address] 27057 Basophils/100 WBC (Bld) 0.2 % Normal [facility] Comment on above: Performed By: #### Brock PALMER, CMP ####[facility] ([id number])[address] [place] [address] 60492 Eosinophils (Bld) [#/Vol] 0.1 10*3/uL Normal 0.0-0.4 [facility] Comment on above: Performed By: #### Brock PALMER, CMP ####[facility] ([id number])[address] [place] [address] 11805 Eosinophils/100 WBC (Bld) 1.1 % Normal [facility] Comment on above: Performed By: #### Brock PALMER, CMP ####[facility] ([id number])[address] [place] [address] 81952 Erythrocyte distribution width (RBC) [Ratio] 16.1 % High 11.5-15.0 [facility] Comment on above: Performed By: #### C BCA, CMP ####[facility] ([id number])[address] [place] [address] 77391 Hematocrit (Bld) [Volume fraction] 35.7 % Low 39-49 [facility] Comment on above: Performed By: #### C BCA, CMP ####[facility] ([id number])[address] [place] [address] 27728 Hemoglobin (Bld) [Mass/Vol] 12.0 g/dL Low 13.0-17.0 [facility] Comment on above: Performed By: #### C BCA, CMP ####[facility] ([id number])[address] [place] [address] 59311 Lymphocytes (Bld) [#/Vol] 2.2 10*3/uL Normal 1.0-3.5 [facility] Comment on above: Performed By: #### C BCA, CMP ####[facility] ([id number])[address] [place] [address] 11420 Lymphocytes/100 WBC (Bld) 28.2 % Normal [facility] Comment on above: Performed By: #### C BCA, CMP ####[facility] ([id number])[address] [place] [address] 04754 MCH (RBC) [Entitic mass] 30.1 pg Normal 27-34 [facility] Comment on above: Performed By: #### C BCA, CMP ####[facility] ([id number])[address] [place] [address] 43948 MCHC (RBC) [Mass/Vol] 33.7 g/dL Normal 32-36 [facility] Comment on above: Performed By: #### C BCA, CMP ####[facility] ([id number])[address] [place], [place] [address], [place] [address] MCV (RBC) [Entitic vol] 89 fL Normal 80-100 [facility] Comment on above: Performed By: #### C SPENCER, CMP ####[facility] ([id number])[address] [place] [address] 64148 Monocytes (Bld) [#/Vol] 0.1 10*3/uL Normal 0-0.9 [facility] Comment on above: Performed By: #### C SPENCER, CMP ####[facility] ([id number])[address] [place] [address] 47410 Monocytes/100 WBC (Bld) 1.8 % Normal [facility] Comment on above: Performed By: #### Brock PALMER, CMP ####[facility] ([id number])[address] [place] [address] 35013 Neutrophils/100 WBC (Bld) 68.7 % Normal [facility] Comment on above: Performed By: #### Brock PALMER, CMP ####[facility] ([id number])[address] [place] [address] 21819 Platelet mean volume (Bld) [Entitic vol] 8.9 fL Normal 7-12 [facility] Comment on above: Performed By: #### C SPENCER, CMP ####[facility] ([id number])[address] [place] [address] 63277 Platelets (Bld) [#/Vol] 212 10*3/uL Normal 150-450 [facility] Comment on above: Performed By: #### C SPENCER, CMP ####[facility] ([id number])[address] [place] [address] [place] [address] RBC COUNT 4.00 X10E12/L Low 4.10-5.70 [facility] Comment on above: Performed By: #### C SPENCER, CMP ####[facility] ([id number])[address] [place] [address] WBC (Bld) [#/Vol] 7.6 10*3/uL Normal 4.0-11.0 [facility] Comment on above: Performed By: #### C BCA, CMP ####[facility] ([id number])[address] [place] [address] 12093 CBC auto differentialon 09-22 Basophils (Bld) [#/Vol] 0.0 10*3/uL [facility] Basophils/100 WBC (Bld) 0.2 % [facility] Eosinophils (Bld) [#/Vol] 0.1 10*3/uL [facility] Eosinophils/100 WBC (Bld) 1.1 % [facility] Erythrocyte distribution width (RBC) [Ratio] 16.1 % High 11.5 - 15.0 % [facility] Hematocrit (Bld) [Volume fraction] 35.7 % Low 39 - 49 % [facility] Hemoglobin (Bld) [Mass/Vol] 12.0 g/dL Low 13.0 - 17.0 g/dL [facility] Interpretation and review of laboratory results Abnormal [facility] Lymphocytes (Bld) [#/Vol] 2.2 10*3/uL [facility] Lymphocytes/100 WBC (Bld) 28.2 % [facility] MCH (RBC) [Entitic mass] 30.1 pg 27 - 34 pg [facility] MCHC (RBC) [Mass/Vol] 33.7 g/dL 32 - 36 g/dL [facility] MCV (RBC) [Entitic vol] 89 fL 80 - 100 fL [facility] Monocytes (Bld) [#/Vol] 0.1 10*3/uL [facility] Monocytes/100 WBC (Bld) 1.8 % [facility] Neutrophils (Bld) [#/Vol] 5.2 10*3/uL [facility] Neutrophils/100 WBC (Bld) 68.7 % [facility] Platelet mean volume (Bld) [Entitic vol] 8.9 fL 7 - 12 fL [facility] Platelets (Bld) [#/Vol] 212 10*3/uL [facility] RBC (Bld) [#/Vol] 4.00 10*6/uL Low [facility] WBC corrected for nucl RBC Auto (Bld) [#/Vol] 7.6 [facility] COMPREHENSIVE METABOLIC PANE Adam 10-17-2023 Albumin [Mass/Vol] 3.6 g/dL Normal 3.2-5.3 [facility] Comment on above: Performed By: #### C BCA, CMP ####[facility] ([id number])[address] [place] [address] 71922 ALP [Catalytic activity/Vol] 34 U/L Low 39-130 [facility] Comment on above: Performed By: #### C BCA, CMP ####[facility] ([id number])[address] [place] [address] 68748 ALT [Catalytic activity/Vol] 31 U/L Normal 0-40 [facility] Comment on above: Performed By: #### C BCA, CMP ####[facility] ([id number])[address] [place] [address] 11886 Anion gap [Moles/Vol] 10 mmol/L Normal 5-15 [facility] Comment on above: Performed By: #### C BCA, CMP ####[facility] ([id number])[address] [place] [address] 95860 AST [Catalytic activity/Vol] 21 U/L Normal 0-41 [facility] Comment on above: Performed By: #### C BCA, CMP ####[facility] ([id number])[address] [place] [address] 33753 Bilirubin [Mass/Vol] 0.8 mg/dL Normal 0.3-1.2 [facility] Comment on above: Performed By: #### C BCA, CMP ####[facility] ([id number])[address] [place] [address] [place] [address] Calcium [Mass/Vol] 8.6 mg/dL Normal 8.5-10.5 [facility] Comment on above: Performed By: #### C BCA, CMP ####[facility] ([id number])[address] [place] [address] 66060 Chloride [Moles/Vol] 103 mmol/L Normal 98-109 [facility] Comment on above: Performed By: #### C BCA, CMP ####[facility] ([id number])[address] [place] [address] 86789 CO2 [Moles/Vol] 26 mmol/L Normal 22-32 [facility] Comment on above: Performed By: #### C BCA, CMP ####[facility] ([id number])[address] [place] [address] 97227 Creatinine [Mass/Vol] 1.13 mg/dL Normal 0.70-1.20 [facility] Comment on above: Result Comment: METH OD TRACEABLE TO IDMS STANDARD Performed By: #### C BCA, CMP ####[facility] ([id number])[address] [place] [address] 45892 GFR/1.73 sq M.predicted among non-blacks MDRD (S/P/Bld) [Vol rate/Area] 82 mL/min/{1.73_m2} Normal >59 [facility] Comment on above: Result Comment: Repo rted eGFR is based on theCKD-EPI 2020 equation that doesnot use a race coefficient. Performed By: #### C BCA, CMP ####[facility] ([id number])[address] [place] [address] 91353 Glucose [Mass/Vol] 88 mg/dL Normal 65-99 [facility] Comment on above: Performed By: #### C BCA, CMP ####[facility] ([id number])[address] [place] [address] 65237 Potassium [Moles/Vol] 3.7 mmol/L Normal 3.5-5.0 [facility] Comment on above: Performed By: #### C BCA, CMP ####[facility] ([id number])[address] [place] [address] 98480 Protein [Mass/Vol] 6.4 g/dL Normal 6.0-8.0 [facility] Comment on above: Performed By: #### C BCA, CMP ####[facility] ([id number])[address] [place] [address] 01178 Sodium [Moles/Vol] 139 mmol/L Normal 134-146 [facility] Comment on above: Performed By: #### C BCA, CMP ####[facility] ([id number])[address] [place] [address] 53374 Urea nitrogen [Mass/Vol] 15 mg/dL Normal 5-23 [facility] Comment on above: Performed By: #### C BCA, CMP ####[facility] ([id number])[address] [place] [address] 71467 Comprehensive metabolic pane [facility] 10-17-2023 Albumin [Mass/Vol] 3.6 g/dL 3.2 - 5.3 g/dL [facility] ALP [Catalytic activity/Vol] 34 U/L Low 39 - 130 U/L [facility] ALT No additional P-5'-P [Catalytic activity/Vol] 31 U/L 0 - 40 U/L [facility] Anion gap [Moles/Vol] 10 mmol/L 5 - 15 mmol/L [facility] AST [Catalytic activity/Vol] 21 U/L 0 - 41 U/L [facility] Bilirubin [Mass/Vol] 0.8 mg/dL 0.3 - 1.2 mg/dL [facility] Calcium [Mass/Vol] 8.6 mg/dL 8.5 - 10. 5 mg/dL [facility] Chloride [Moles/Vol] 103 mmol/L 98 - 109 mmol/L [facility] CO2 [Moles/Vol] 26 mmol/L 22 - 32 mmol/L [facility] Creatinine [Mass/Vol] 1.13 mg/dL 0.70 - 1.20 mg/dL [facility] Comment on above: METHOD TRACEABLE TO IDWV STANDARD eGFR (CKD-EPI)non-race dependent 82 - PINF [facility] Comment on above: Reported eGFR is based on the CKD-EPI 2020 equation that does not use a race coefficient. Glucose [Mass/Vol] 88 mg/dL 65 - 99 mg/dL [facility] Interpretation and review of laboratory results Abnormal [facility] Potassium [Moles/Vol] 3.7 mmol/L 3.5 - 5.0 mmol/L [facility] Protein [Mass/Vol] 6.4 g/dL 6.0 - 8.0 g/dL [facility] Sodium [Moles/Vol] 139 mmol/L 134 - 146 mmol/L [facility] Urea nitrogen [Mass/Vol] 15 mg/dL 5 - 23 mg/dL [facility] CBC AND AUTO DIFFon 10-10-19 24 ABSOLUTE BASOPHIL 0.0 X10E9/L Normal 0.0-0.2 [facility] Comment on above: Performed By: #### C BCA, CMP ####[facility] ([id number])[address] [place] [address] 53773 ABSOLUTE NEUTROPHIL 3.4 X10E9/L Normal 1.5-6.6 [facility] Comment on above: Performed By: #### C BCA, CMP ####[facility] ([id number])[address] [place] [address] 73796 Basophils/100 WBC (Bld) 0.7 % Normal [facility] Comment on above: Performed By: #### C BCA, CMP ####[facility] ([id number])[address] [place] [address] 69486 Eosinophils (Bld) [#/Vol] 0.2 10*3/uL Normal 0.0-0.4 [facility] Comment on above: Performed By: #### C BCA, CMP ####[facility] ([id number])[address] [place] [address] 09403 Eosinophils/100 WBC (Bld) 2.8 % Normal [facility] Comment on above: Performed By: #### C BCA, CMP ####[facility] ([id number])[address] [place] [address] 56946 Erythrocyte distribution width (RBC) [Ratio] 16.3 % High 11.5-15.0 [facility] Comment on above: Performed By: #### C SPENCER, CMP ####[facility] ([id number])[address] [place] [address] 26699 Hematocrit (Bld) [Volume fraction] 37.2 % Low 39-49 [facility] Comment on above: Performed By: #### C BCA, CMP ####[facility] ([id number])[address] [place] [address] 55240 Hemoglobin (Bld) [Mass/Vol] 12.5 g/dL Low 13.0-17.0 [facility] Comment on above: Performed By: #### C BCA, CMP ####[facility] ([id number])[address] [place] [address] 35667 Lymphocytes (Bld) [#/Vol] 1.7 10*3/uL Normal 1.0-3.5 [facility] Comment on above: Performed By: #### C BCA, CMP ####[facility] ([id number])[address] [place] [address] 50206 Lymphocytes/100 WBC (Bld) 29.4 % Normal [facility] Comment on above: Performed By: #### C BCA, CMP ####[facility] ([id number])[address] [place] [address] 90619 MCH (RBC) [Entitic mass] 30.1 pg Normal 27-34 [facility] Comment on above: Performed By: #### C BCA, CMP ####[facility] ([id number])[address] [place] [address] 47000 MCHC (RBC) [Mass/Vol] 33.6 g/dL Normal 32-36 [facility] Comment on above: Performed By: #### C SPENCER, CMP ####[facility] ([id number])[address] [place] [address] 16112 MCV (RBC) [Entitic vol] 90 fL Normal 80-100 [facility] Comment on above: Performed By: #### C SPENCER, CMP ####[facility] ([id number])[address] [place] [address] 51909 Monocytes (Bld) [#/Vol] 0.5 10*3/uL Normal 0-0.9 [facility] Comment on above: Performed By: #### C SPENCER, CMP ####[facility] ([id number])[address] [place] [address] 64216 Monocytes/100 WBC (Bld) 8.0 % Normal [facility] Comment on above: Performed By: #### C SPENCER, CMP ####[facility] ([id number])[address] [place] [address] 12778 Neutrophils/100 WBC (Bld) 59.1 % Normal [facility] Comment on above: Performed By: #### C BCA, CMP ####[facility] ([id number])[address] [place] [address] 97344 Platelet mean volume (Bld) [Entitic vol] 7.8 fL Normal 7-12 [facility] Comment on above: Performed By: #### C BCA, CMP ####[facility] ([id number])[address] [place] [address] 33642 Platelets (Bld) [#/Vol] 253 10*3/uL Normal 150-450 [facility] Comment on above: Performed By: #### C SPENCER, CMP ####[facility] ([id number])[address] [place] [address] 23365 RBC COUNT 4.14 X10E12/L Normal 4.10-5.70 [facility] Comment on above: Performed By: #### C SPENCER, CMP ####[facility] ([id number])[address] [place] [address] 84833 WBC (Bld) [#/Vol] 5.7 10*3/uL Normal 4.0-11.0 [facility] Comment on above: Performed By: #### Brock PALMER, CMP ####[facility] ([id number])[address] [place] [address] 23102 CBC auto differentialon 09-21 Basophils (Bld) [#/Vol] 0.0 10*3/uL [facility] Basophils/100 WBC (Bld) 0.7 % [facility] Eosinophils (Bld) [#/Vol] 0.2 10*3/uL [facility] Eosinophils/100 WBC (Bld) 2.8 % [facility] Erythrocyte distribution width (RBC) [Ratio] 16.3 % High 11.5 - 15.0 % [facility] Hematocrit (Bld) [Volume fraction] 37.2 % Low 39 - 49 % [facility] Hemoglobin (Bld) [Mass/Vol] 12.5 g/dL Low 13.0 - 17.0 g/dL [facility] Interpretation and review of laboratory results Abnormal [facility] Lymphocytes (Bld) [#/Vol] 1.7 10*3/uL [facility] Lymphocytes/100 WBC (Bld) 29.4 % [facility] MCH (RBC) [Entitic mass] 30.1 pg 27 - 34 pg [facility] MCHC (RBC) [Mass/Vol] 33.6 g/dL 32 - 36 g/dL [facility] MCV (RBC) [Entitic vol] 90 fL 80 - 100 fL [facility] Monocytes (Bld) [#/Vol] 0.5 10*3/uL [facility] Monocytes/100 WBC (Bld) 8.0 % [facility] Neutrophils (Bld) [#/Vol] 3.4 10*3/uL [facility] Neutrophils/100 WBC (Bld) 59.1 % [facility] Platelet mean volume (Bld) [Entitic vol] 7.8 fL 7 - 12 fL [facility] Platelets (Bld) [#/Vol] 253 10*3/uL [facility] RBC (Bld) [#/Vol] 4.14 10*6/uL [facility] WBC corrected for nucl RBC Auto (Bld) [#/Vol] 5.7 [facility] COMPREHENSIVE METABOLIC PANE Adam 10-10-2023 Albumin [Mass/Vol] 4.0 g/dL Normal 3.2-5.3 [facility] Comment on above: Performed By: #### C BCA, CMP ####[facility] ([id number])[address] [place] [address] 11268 ALP [Catalytic activity/Vol] 38 U/L Low 39-130 [facility] Comment on above: Performed By: #### C BCA, CMP ####[facility] ([id number])[address] [place] [address] 60336 ALT [Catalytic activity/Vol] 23 U/L Normal 0-40 [facility] Comment on above: Performed By: #### C BCA, CMP ####[facility] ([id number])[address] [place] [address] 05393 Anion gap [Moles/Vol] 8 mmol/L Normal 5-15 [facility] Comment on above: Performed By: #### C BCA, CMP ####[facility] ([id number])[address] [place] [address] [place] [address] AST [Catalytic activity/Vol] 24 U/L Normal 0-41 [facility] Comment on above: Performed By: #### C BCA, CMP ####[facility] ([id number])[address] [place] [address] 45226 Bilirubin [Mass/Vol] 0.4 mg/dL Normal 0.3-1.2 [facility] Comment on above: Performed By: #### C BCA, CMP ####[facility] ([id number])[address] [place] [address] 87865 Calcium [Mass/Vol] 9.3 mg/dL Normal 8.5-10.5 [facility] Comment on above: Performed By: #### C BCA, CMP ####[facility] ([id number])[address] [place] [address] 92343 Chloride [Moles/Vol] 106 mmol/L Normal 98-109 [facility] Comment on above: Performed By: #### C BCA, CMP ####[facility] ([id number])[address] [place] [address] 33737 CO2 [Moles/Vol] 24 mmol/L Normal 22-32 [facility] Comment on above: Performed By: #### C BCA, CMP ####[facility] ([id number])[address] [place] [address] [place] [address] Creatinine [Mass/Vol] 0.98 mg/dL Normal 0.70-1.20 [facility] Comment on above: Result Comment: METH OD TRACEABLE TO IDMS STANDARD Performed By: #### C BCA, CMP ####[facility] ([id number])[address] [place] [address] [place] [address] eGFR (CKD-EPI) NON-RACE DEPENDENT >90 Normal >59 [facility] Comment on above: Result Comment: Repo rted eGFR is based on theCKD-EPI 2020 equation that doesnot use a race coefficient. Performed By: #### C BCA, CMP ####[facility] ([id number])[address] [place] [address] 93388 Glucose [Mass/Vol] 140 mg/dL High 65-99 [facility] Comment on above: Performed By: #### C BCA, CMP ####[facility] ([id number])[address] [place] [address] 55835 Potassium [Moles/Vol] 4.0 mmol/L Normal 3.5-5.0 [facility] Comment on above: Performed By: #### C SPENCER, CMP ####[facility] ([id number])[address] [place] [address] 75218 Protein [Mass/Vol] 7.5 g/dL Normal 6.0-8.0 [facility] Comment on above: Performed By: #### C BCA, CMP ####[facility] ([id number])[address] [place] [address] 54030 Sodium [Moles/Vol] 138 mmol/L Normal 134-146 [facility] Comment on above: Performed By: #### C BCA, CMP ####[facility] ([id number])[address] [place] [address] 46656 Urea nitrogen [Mass/Vol] 9 mg/dL Normal 5-23 [facility] Comment on above: Performed By: #### C BCA, CMP ####[facility] ([id number])[address] [place] [address] [place] [address] Comprehensive metabolic pane adam 10-10-2023 Albumin [Mass/Vol] 4.0 g/dL 3.2 - 5.3 g/dL [facility] ALP [Catalytic activity/Vol] 38 U/L Low 39 - 130 U/L [facility] ALT No additional P-5'-P [Catalytic activity/Vol] 23 U/L 0 - 40 U/L [facility] Anion gap [Moles/Vol] 8 mmol/L 5 - 15 mmol/L [facility] AST [Catalytic activity/Vol] 24 U/L 0 - 41 U/L [facility] Bilirubin [Mass/Vol] 0.4 mg/dL 0.3 - 1.2 mg/dL [facility] Calcium [Mass/Vol] 9.3 mg/dL 8.5 - 10. 5 mg/dL [facility] Chloride [Moles/Vol] 106 mmol/L 98 - 109 mmol/L [facility] CO2 [Moles/Vol] 24 mmol/L 22 - 32 mmol/L [facility] Creatinine [Mass/Vol] 0.98 mg/dL 0.70 - 1.20 mg/dL [facility] Comment on above: METHOD TRACEABLE TO [facility] STANDARD eGFR (CKD-EPI)non-race dependent - PINF [facility] Comment on above: Reported eGFR is based on the CKD-EPI 2020 equation that does not use a race coefficient. Glucose [Mass/Vol] 140 mg/dL High 65 - 99 mg/dL [facility] Interpretation and review of laboratory results Abnormal [facility] Potassium [Moles/Vol] 4.0 mmol/L 3.5 - 5.0 mmol/L [facility] Protein [Mass/Vol] 7.5 g/dL 6.0 - 8.0 g/dL [facility] Sodium [Moles/Vol] 138 mmol/L 134 - 146 mmol/L [facility] Urea nitrogen [Mass/Vol] 9 mg/dL 5 - 23 mg/dL [facility] CBC AND AUTO DIFFon 10-03-19 24 ABSOLUTE BASOPHIL 0.1 X10E9/L Normal 0.0-0.2 [facility] Comment on above: Performed By: #### C SPENCER, CMP ####[facility] ([id number])[address] [place] [address] ABSOLUTE NEUTROPHIL 5.8 X10E9/L Normal 1.5-6.6 [facility] Comment on above: Performed By: #### C BCA, CMP ####[facility] ([id number])[address] [place] [address] [place] [address] Basophils/100 WBC (Bld) 0.9 % Normal [facility] Comment on above: Performed By: #### C BCA, CMP ####[facility] ([id number])[address] [place] [address] 74931 Eosinophils (Bld) [#/Vol] 0.2 10*3/uL Normal 0.0-0.4 [facility] Comment on above: Performed By: #### C SPENCER, CMP ####[facility] ([id number])[address] [place] [address] 49643 Eosinophils/100 WBC (Bld) 2.4 % Normal [facility] Comment on above: Performed By: #### C SPENCER, CMP ####[facility] ([id number])[address] [place] [address] 59441 Erythrocyte distribution width (RBC) [Ratio] 17.1 % High 11.5-15.0 [facility] Comment on above: Performed By: #### C SPENCER, CMP ####[facility] ([id number])[address] [place] [address] 66702 Hematocrit (Bld) [Volume fraction] 34.3 % Low 39-49 [facility] Comment on above: Performed By: #### C SPENCER, CMP ####[facility] ([id number])[address] [place] [address] [place] [address] Hemoglobin (Bld) [Mass/Vol] 11.5 g/dL Low 13.0-17.0 [facility] Comment on above: Performed By: #### C SPENCER, CMP ####[facility] ([id number])[address] [place] [address] 01445 Lymphocytes (Bld) [#/Vol] 1.2 10*3/uL Normal 1.0-3.5 [facility] Comment on above: Performed By: #### C BCA, CMP ####[facility] ([id number])[address] [place] [address] 94532 Lymphocytes/100 WBC (Bld) 14.6 % Normal [facility] Comment on above: Performed By: #### C BCA, CMP ####[facility] ([id number])[address] [place] [address] 73609 MCH (RBC) [Entitic mass] 30.2 pg Normal 27-34 [facility] Comment on above: Performed By: #### C SPENCER, CMP ####[facility] ([id number])[address] [place] [address] 80886 MCHC (RBC) [Mass/Vol] 33.6 g/dL Normal 32-36 [facility] Comment on above: Performed By: #### C SPENCER, CMP ####[facility] ([id number])[address] [place] [address] 61574 MCV (RBC) [Entitic vol] 90 fL Normal 80-100 [facility] Comment on above: Performed By: #### C BCA, CMP ####[facility] ([id number])[address] [place] [address] 74452 Monocytes (Bld) [#/Vol] 1.0 10*3/uL High 0-0.9 [facility] Comment on above: Performed By: #### C BCA, CMP ####[facility] ([id number])[address] [place] [address] 11024 Monocytes/100 WBC (Bld) 11.7 % Normal [facility] Comment on above: Performed By: #### C BCA, CMP ####[facility] ([id number])[address] [place] [address] 76860 Neutrophils/100 WBC (Bld) 70.4 % Normal [facility] Comment on above: Performed By: #### C SPENCER, CMP ####[facility] ([id number])[address] [place] [address] 79356 Platelet mean volume (Bld) [Entitic vol] 8.2 fL Normal 7-12 [facility] Comment on above: Performed By: #### Brock PALMER, CMP ####[facility] ([id number])[address] [place] [address] 93381 Platelets (Bld) [#/Vol] 225 10*3/uL Normal 150-450 [facility] Comment on above: Performed By: #### Brock PALMER, CMP ####[facility] ([id number])[address] [place] [address] 52950 RBC COUNT 3.81 X10E12/L Low 4.10-5.70 [facility] Comment on above: Performed By: #### Brock PALMER, CMP ####[facility] ([id number])[address] [place] [address] 66507 WBC (Bld) [#/Vol] 8.2 10*3/uL Normal 4.0-11.0 [facility] Comment on above: Performed By: #### Brock PALMER, CMP ####[facility] ([id number])[address] [place] [address] 75828 CBC auto differentialon 09-21 Basophils (Bld) [#/Vol] 0.1 10*3/uL [facility] Basophils/100 WBC (Bld) 0.9 % [facility] Eosinophils (Bld) [#/Vol] 0.2 10*3/uL [facility] Eosinophils/100 WBC (Bld) 2.4 % [facility] Erythrocyte distribution width (RBC) [Ratio] 17.1 % High 11.5 - 15.0 % [facility] Hematocrit (Bld) [Volume fraction] 34.3 % Low 39 - 49 % [facility] Hemoglobin (Bld) [Mass/Vol] 11.5 g/dL Low 13.0 - 17.0 g/dL [facility] Interpretation and review of laboratory results Abnormal [facility] Lymphocytes (Bld) [#/Vol] 1.2 10*3/uL [facility] Lymphocytes/100 WBC (Bld) 14.6 % [facility] MCH (RBC) [Entitic mass] 30.2 pg 27 - 34 pg [facility] MCHC (RBC) [Mass/Vol] 33.6 g/dL 32 - 36 g/dL [facility] MCV (RBC) [Entitic vol] 90 fL 80 - 100 fL [facility] Monocytes (Bld) [#/Vol] 1.0 10*3/uL High [facility] Monocytes/100 WBC (Bld) 11.7 % [facility] Neutrophils (Bld) [#/Vol] 5.8 10*3/uL [facility] Neutrophils/100 WBC (Bld) 70.4 % [facility] Platelet mean volume (Bld) [Entitic vol] 8.2 fL 7 - 12 fL [facility] Platelets (Bld) [#/Vol] 225 10*3/uL [facility] RBC (Bld) [#/Vol] 3.81 10*6/uL Low [facility] WBC corrected for nucl RBC Auto (Bld) [#/Vol] 8.2 [facility] COMPREHENSIVE METABOLIC PANE Adam 10-03-2023 Albumin [Mass/Vol] 3.7 g/dL Normal 3.2-5.3 [facility] Comment on above: Performed By: #### C BCA, CMP ####[facility] ([id number])[address] [place] [address] 44705 ALP [Catalytic activity/Vol] 35 U/L Low 39-130 [facility] Comment on above: Performed By: #### C BCA, CMP ####[facility] ([id number])[address] [place] [address] 47540 ALT [Catalytic activity/Vol] 20 U/L Normal 0-40 [facility] Comment on above: Performed By: #### C BCA, CMP ####[facility] ([id number])[address] [place] [address], [place] [address] Anion gap [Moles/Vol] 5 mmol/L Normal 5-15 [facility] Comment on above: Performed By: #### C BCA, CMP ####[facility] ([id number])[address] [place] [address], [place] [address] AST [Catalytic activity/Vol] 21 U/L Normal 0-41 [facility] Comment on above: Performed By: #### C BCA, CMP ####[facility] ([id number])[address] [place] [address], [place] [address] Bilirubin [Mass/Vol] 1.5 mg/dL High 0.3-1.2 [facility] Comment on above: Performed By: #### C BCA, CMP ####[facility] ([id number])[address] [place] [address] [place] [address] Calcium [Mass/Vol] 8.9 mg/dL Normal 8.5-10.5 [facility] Comment on above: Performed By: #### C BCA, CMP ####[facility] ([id number])[address] [place] [address] [place] [address] Chloride [Moles/Vol] 103 mmol/L Normal 98-109 [facility] Comment on above: Performed By: #### C BCA, CMP ####[facility] ([id number])[address] [place] [address] [place] [address] CO2 [Moles/Vol] 23 mmol/L Normal 22-32 [facility] Comment on above: Performed By: #### C BCA, CMP ####[facility] ([id number])[address] [place] [address], [place] [address] Creatinine [Mass/Vol] 1.01 mg/dL Normal 0.70-1.20 [facility] Comment on above: Result Comment: METH OD TRACEABLE TO IDMS STANDARD Performed By: #### C BCA, CMP ####[facility] ([id number])[address] [place] [address] 20043 eGFR (CKD-EPI) NON-RACE DEPENDENT >90 Normal >59 [facility] Comment on above: Result Comment: Repo rted eGFR is based on theCKD-EPI 2020 equation that doesnot use a race coefficient. Performed By: #### C BCA, CMP ####[facility] ([id number])[address] [place] [address] 71943 Glucose [Mass/Vol] 110 mg/dL High 65-99 [facility] Comment on above: Performed By: #### C BCA, CMP ####[facility] ([id number])[address] [place] [address] 40606 Potassium [Moles/Vol] 4.1 mmol/L Normal 3.5-5.0 [facility] Comment on above: Performed By: #### C BCA, CMP ####[facility] ([id number])[address] [place] [address] 04857 Protein [Mass/Vol] 7.5 g/dL Normal 6.0-8.0 [facility] Comment on above: Performed By: #### C BCA, CMP ####[facility] ([id number])[address] [place] [address] [place] [address] Sodium [Moles/Vol] 131 mmol/L Low 134-146 [facility] Comment on above: Performed By: #### C BCA, CMP ####[facility] ([id number])[address] [place] [address] [place] [address] Urea nitrogen [Mass/Vol] 9 mg/dL Normal 5-23 [facility] Comment on above: Performed By: #### C BCA, CMP ####[facility] ([id number])[address] [place] [address] Comprehensive metabolic pane adam 10-03-2023 Albumin [Mass/Vol] 3.7 g/dL 3.2 - 5.3 g/dL [facility] ALP [Catalytic activity/Vol] 35 U/L Low 39 - 130 U/L [facility] ALT No additional P-5'-P [Catalytic activity/Vol] 20 U/L 0 - 40 U/L [facility] Anion gap [Moles/Vol] 5 mmol/L 5 - 15 mmol/L [facility] AST [Catalytic activity/Vol] 21 U/L 0 - 41 U/L [facility] Bilirubin [Mass/Vol] 1.5 mg/dL High 0.3 - 1.2 mg/dL [facility] Calcium [Mass/Vol] 8.9 mg/dL 8.5 - 10. 5 mg/dL [facility] Chloride [Moles/Vol] 103 mmol/L 98 - 109 mmol/L [facility] CO2 [Moles/Vol] 23 mmol/L 22 - 32 mmol/L [facility] Creatinine [Mass/Vol] 1.01 mg/dL 0.70 - 1.20 mg/dL [facility] Comment on above: METHOD TRACEABLE TO [employer] STANDARD eGFR (CKD-EPI)non-race dependent - PINF [facility] Comment on above: Reported eGFR is based on the CKD-EPI 2020 equation that does not use a race coefficient. Glucose [Mass/Vol] 110 mg/dL High 65 - 99 mg/dL [facility] Interpretation and review of laboratory results Abnormal [facility] Potassium [Moles/Vol] 4.1 mmol/L 3.5 - 5.0 mmol/L [facility] Protein [Mass/Vol] 7.5 g/dL 6.0 - 8.0 g/dL [facility] Sodium [Moles/Vol] 131 mmol/L Low 134 - 146 mmol/L [facility] Urea nitrogen [Mass/Vol] 9 mg/dL 5 - 23 mg/dL [facility] CT ABDOMEN AND PELVIS W CONT on 09-21-2023 CT ABDOMEN AND PELVIS W CONT Normal [facility] CT CHEST W CONTon 09-21-2023 CT CHEST W CONT Normal [facility] CBC AND AUTO DIFFon 09-12-19 24 ABSOLUTE BASOPHIL 0.0 X10E9/L Normal 0.0-0.2 [facility] Comment on above: Performed By: #### C SPENCER, CMP ####[facility] ([id number])[address] [place] [address] 45590 Band form neutrophils/100 WBC (Bld) 13.0 % Normal [facility] Comment on above: Performed By: #### C SPENCER, CMP ####[facility] ([id number])[address] [place] [address] 61391 Basophils/100 WBC (Bld) 1.0 % Normal [facility] Comment on above: Performed By: #### C SPENCER, CMP ####[facility] ([id number])[address] [place] [address] 25308 Erythrocyte distribution width (RBC) [Ratio] 13.4 % Normal 11.5-15.0 [facility] Comment on above: Performed By: #### C SPENCER, CMP ####[facility] ([id number])[address] [place] [address] 64436 Hematocrit (Bld) [Volume fraction] 32.1 % Low 39-49 [facility] Comment on above: Performed By: #### C SPENCER, CMP ####[facility] ([id number])[address] [place] [address] 81023 Hemoglobin (Bld) [Mass/Vol] 11.1 g/dL Low 13.0-17.0 [facility] Comment on above: Performed By: #### C SPENCER, CMP ####[facility] ([id number])[address] [place] [address] 78149 LYMPHOCYTE, ATYPICAL 2.0 % Normal [facility] Comment on above: Performed By: #### C SPENCER, CMP ####[facility] ([id number])[address] [place] [address] 51999 Lymphocytes (Bld) [#/Vol] 1.5 10*3/uL Normal 1.0-3.5 [facility] Comment on above: Performed By: #### C SPENCER, CMP ####[facility] ([id number])[address] [place] [address] 91026 Lymphocytes/100 WBC (Bld) 35.0 % Normal [facility] Comment on above: Performed By: #### C SPENCER, CMP ####[facility] ([id number])[address] [place] [address] 33860 MCH (RBC) [Entitic mass] 30.1 pg Normal 27-34 [facility] Comment on above: Performed By: #### C SPENCER, CMP ####[facility] ([id number])[address] [place] [address] [place] [address] MCHC (RBC) [Mass/Vol] 34.7 g/dL Normal 32-36 [facility] Comment on above: Performed By: #### C SPENCER, CMP ####[facility] ([id number])[address] [place] [address] 25229 MCV (RBC) [Entitic vol] 87 fL Normal 80-100 [facility] Comment on above: Performed By: #### C SPENCER, CMP ####[facility] ([id number])[address] [place] [address] 53001 Metamyelocytes/100 WBC (Bld) 2.0 % Normal [facility] Comment on above: Performed By: #### C BCA, CMP ####[facility] ([id number])[address] [place] [address] 38131 Monocytes (Bld) [#/Vol] 0.0 10*3/uL Normal 0-0.9 [facility] Comment on above: Performed By: #### C SPENCER, CMP ####[facility] ([id number])[address] [place] [address] 89689 Monocytes/100 WBC (Bld) 1.0 % Normal [facility] Comment on above: Performed By: #### C SPENCER, CMP ####[facility] ([id number])[address] [place] [address] 27370 MYELOCYTE 1.0 % Normal [facility] Comment on above: Performed By: #### C SPENCER, CMP ####[facility] ([id number])[address] [place] [address] 74038 Neutrophils (Bld) [#/Vol] 2.4 10*3/uL Normal 1.5-6.6 [facility] Comment on above: Performed By: #### C SPENCER, CMP ####[facility] ([id number])[address] [place] [address] 41230 Platelet mean volume (Bld) [Entitic vol] 8.0 fL Normal 7-12 [facility] Comment on above: Performed By: #### C SPENCER, CMP ####[facility] ([id number])[address] [place] [address] 08753 Platelets (Bld) [#/Vol] 162 10*3/uL Normal 150-450 [facility] Comment on above: Performed By: #### C SPENCER, CMP ####[facility] ([id number])[address] [place] [address] 29380 RBC COUNT 3.69 X10E12/L Low 4.10-5.70 [facility] Comment on above: Performed By: #### C BCA, CMP ####[facility] ([id number])[address] [place] [address] 83754 RBC morphology finding Nom (Bld) NORMAL Normal [facility] Comment on above: Performed By: #### C SPENCER, CMP ####[facility] ([id number])[address] [place] [address] 04465 SEG NEUTROPHIL 45.0 % Normal [facility] Comment on above: Performed By: #### C SPENCER, CMP ####[facility] ([id number])[address] [place] [address] 65364 WBC (Bld) [#/Vol] 4.0 10*3/uL Normal 4.0-11.0 [facility] Comment on above: Performed By: #### C SPENCER, CMP ####[facility] ([id number])[address] [place] [address] 36655 CBC auto differentialon 08-22 Band form neutrophils/100 WBC (Bld) 13.0 % [facility] Basophils (Bld) [#/Vol] 0.0 10*3/uL [facility] Basophils/100 WBC (Bld) 1.0 % [facility] Erythrocyte distribution width (RBC) [Ratio] 13.4 % 11.5 - 15.0 % [facility] Hematocrit (Bld) [Volume fraction] 32.1 % Low 39 - 49 % [facility] Hemoglobin (Bld) [Mass/Vol] 11.1 g/dL Low 13.0 - 17.0 g/dL [facility] Interpretation and review of laboratory results Abnormal [facility] Lymphocytes (Bld) [#/Vol] 1.5 10*3/uL [facility] Lymphocytes/100 WBC (Bld) 35.0 % [facility] MCH (RBC) [Entitic mass] 30.1 pg 27 - 34 pg [facility] MCHC (RBC) [Mass/Vol] 34.7 g/dL 32 - 36 g/dL [facility] MCV (RBC) [Entitic vol] 87 fL 80 - 100 fL [facility] Metamyelocytes/100 WBC (Bld) 2.0 % [facility] Monocytes (Bld) [#/Vol] 0.0 10*3/uL [facility] Monocytes/100 WBC (Bld) 1.0 % [facility] Myelocytes/100 WBC (Bld) 1.0 % [facility] Neutrophils (Bld) [#/Vol] 2.4 10*3/uL [facility] Platelet mean volume (Bld) [Entitic vol] 8.0 fL 7 - 12 fL [facility] Platelets (Bld) [#/Vol] 162 10*3/uL [facility] Polymorphonuclear cells/100 WBC (Bld) NORMAL [facility] RBC (Bld) [#/Vol] 3.69 10*6/uL Low [facility] Segmented neutrophils/100 WBC (Bld) 45.0 % [facility] Variant lymphocytes/100 WBC (Bld) 2.0 % [facility] WBC corrected for nucl RBC Auto (Bld) [#/Vol] 4.0 [facility] COMPREHENSIVE METABOLIC PANE Adam 09-12-2023 Albumin [Mass/Vol] 3.5 g/dL Normal 3.2-5.3 [facility] Comment on above: Performed By: #### C BCA, CMP ####[facility] ([id number])[address] [place] [address] 21219 ALP [Catalytic activity/Vol] 34 U/L Low 39-130 [facility] Comment on above: Performed By: #### C BCA, CMP ####[facility] ([id number])[address] [place] [address] 17661 ALT [Catalytic activity/Vol] 41 U/L High 0-40 [facility] Comment on above: Performed By: #### C BCA, CMP ####[facility] ([id number])[address] [place] [address] 77710 Anion gap [Moles/Vol] 8 mmol/L Normal 5-15 [facility] Comment on above: Performed By: #### C BCA, CMP ####[facility] ([id number])[address] [place] [address], [place] [address] AST [Catalytic activity/Vol] 22 U/L Normal 0-41 [facility] Comment on above: Performed By: #### C BCA, CMP ####[facility] ([id number])[address] [place] [address], [place] [address] Bilirubin [Mass/Vol] 1.6 mg/dL High 0.3-1.2 [facility] Comment on above: Performed By: #### C BCA, CMP ####[facility] ([id number])[address] [place] [address] 68558 Calcium [Mass/Vol] 8.4 mg/dL Low 8.5-10.5 [facility] Comment on above: Performed By: #### C BCA, CMP ####[facility] ([id number])[address] [place] [address] [place] [address] Chloride [Moles/Vol] 99 mmol/L Normal 98-109 [facility] Comment on above: Performed By: #### C BCA, CMP ####[facility] ([id number])[address] [place] [address] [place] [address] CO2 [Moles/Vol] 24 mmol/L Normal 22-32 [facility] Comment on above: Performed By: #### C BCA, CMP ####[facility] ([id number])[address] [place] [address] [place] [address] Creatinine [Mass/Vol] 1.01 mg/dL Normal 0.70-1.20 [facility] Comment on above: Result Comment: METH OD TRACEABLE TO IDMS STANDARD Performed By: #### C BCA, CMP ####[facility] ([id number])[address] [place] [address], [place] [address] eGFR (CKD-EPI) NON-RACE DEPENDENT >90 Normal >59 [facility] Comment on above: Result Comment: Repo rted eGFR is based on theD-EPI 2020 equation that doesnot use a race coefficient. Performed By: #### C SPENCER, CMP ####[facility] ([id number])[address] [place] [address] 23100 Glucose [Mass/Vol] 97 mg/dL Normal 65-99 [facility] Comment on above: Performed By: #### C BCA, CMP ####[facility] ([id number])[address] [place] [address] 98100 Potassium [Moles/Vol] 3.4 mmol/L Low 3.5-5.0 [facility] Comment on above: Performed By: #### C SPENCER, CMP ####[facility] ([id number])[address] [place] [address] 75571 Protein [Mass/Vol] 6.4 g/dL Normal 6.0-8.0 [facility] Comment on above: Performed By: #### C SPENCER, CMP ####[facility] ([id number])[address] [place] [address] 95462 Sodium [Moles/Vol] 131 mmol/L Low 134-146 [facility] Comment on above: Performed By: #### C SPENCER, CMP ####[facility] ([id number])[address] [place] [address] 85434 Urea nitrogen [Mass/Vol] 9 mg/dL Normal 5-23 [facility] Comment on above: Performed By: #### C BCA, CMP ####[facility] ([id number])[address] [place] [address] 00212 Comprehensive metabolic pane adam 09-12-2023 Albumin [Mass/Vol] 3.5 g/dL 3.2 - 5.3 g/dL [facility] ALP [Catalytic activity/Vol] 34 U/L Low 39 - 130 U/L [facility] ALT No additional P-5'-P [Catalytic activity/Vol] 41 U/L High 0 - 40 U/L [facility] Anion gap [Moles/Vol] 8 mmol/L 5 - 15 mmol/L [facility] AST [Catalytic activity/Vol] 22 U/L 0 - 41 U/L [facility] Bilirubin [Mass/Vol] 1.6 mg/dL High 0.3 - 1.2 mg/dL [facility] Calcium [Mass/Vol] 8.4 mg/dL Low 8.5 - 10. 5 mg/dL [facility] Chloride [Moles/Vol] 99 mmol/L 98 - 109 mmol/L [facility] CO2 [Moles/Vol] 24 mmol/L 22 - 32 mmol/L [facility] Creatinine [Mass/Vol] 1.01 mg/dL 0.70 - 1.20 mg/dL [facility] Comment on above: METHOD TRACEABLE TO [facility] STANDARD eGFR (CKD-EPI)non-race dependent - PINF [facility] Comment on above: Reported eGFR is based on the CKD-EPI 2020 equation that does not use a race coefficient. Glucose [Mass/Vol] 97 mg/dL 65 - 99 mg/dL [facility] Interpretation and review of laboratory results Abnormal [facility] Potassium [Moles/Vol] 3.4 mmol/L Low 3.5 - 5.0 mmol/L [facility] Protein [Mass/Vol] 6.4 g/dL 6.0 - 8.0 g/dL [facility] Sodium [Moles/Vol] 131 mmol/L Low 134 - 146 mmol/L [facility] Urea nitrogen [Mass/Vol] 9 mg/dL 5 - 23 mg/dL [facility] CBC AND AUTO DIFFon 09-05-19 24 ABSOLUTE BASOPHIL 0.0 X10E9/L Normal 0.0-0.2 [facility] Comment on above: Performed By: #### C SPENCER, CMP ####[facility] ([id number])[address] [place] [address] Basophils/100 WBC (Bld) 1.0 % Normal [facility] Comment on above: Performed By: #### C SPENCER, CMP ####[facility] ([id number])[address] [place] [address] 26663 Eosinophils (Bld) [#/Vol] 0.0 10*3/uL Normal 0.0-0.4 [facility] Comment on above: Performed By: #### C BCA, CMP ####[facility] ([id number])[address] [place] [address] 82057 Eosinophils/100 WBC (Bld) 1.0 % Normal [facility] Comment on above: Performed By: #### C SPENCER, CMP ####[facility] ([id number])[address] [place] [address] 94972 Erythrocyte distribution width (RBC) [Ratio] 12.8 % Normal 11.5-15.0 [facility] Comment on above: Performed By: #### C SPENCER, CMP ####[facility] ([id number])[address] [place] [address] 73856 Hematocrit (Bld) [Volume fraction] 36.6 % Low 39-49 [facility] Comment on above: Performed By: #### C SPENCER, CMP ####[facility] ([id number])[address] [place] [address] 70296 Hemoglobin (Bld) [Mass/Vol] 12.6 g/dL Low 13.0-17.0 [facility] Comment on above: Performed By: #### C BCA, CMP ####[facility] ([id number])[address] [place] [address] 84704 LYMPHOCYTE, ATYPICAL 1.0 % Normal [facility] Comment on above: Performed By: #### C BCA, CMP ####[facility] ([id number])[address] [place] [address] 18879 Lymphocytes (Bld) [#/Vol] 2.0 10*3/uL Normal 1.0-3.5 [facility] Comment on above: Performed By: #### C BCA, CMP ####[facility] ([id number])[address] [place] [address] 31981 Lymphocytes/100 WBC (Bld) 47.0 % Normal [facility] Comment on above: Performed By: #### C BCA, CMP ####[facility] ([id number])[address] [place] [address] 20670 MCH (RBC) [Entitic mass] 30.1 pg Normal 27-34 [facility] Comment on above: Performed By: #### C SPENCER, CMP ####[facility] ([id number])[address] [place] [address] 44843 MCHC (RBC) [Mass/Vol] 34.5 g/dL Normal 32-36 [facility] Comment on above: Performed By: #### C SPENCER, CMP ####[facility] ([id number])[address] [place] [address] 60103 MCV (RBC) [Entitic vol] 87 fL Normal 80-100 [facility] Comment on above: Performed By: #### C BCA, CMP ####[facility] ([id number])[address] [place] [address] 28703 Monocytes (Bld) [#/Vol] 0.1 10*3/uL Normal 0-0.9 [facility] Comment on above: Performed By: #### C BCA, CMP ####[facility] ([id number])[address] [place] [address] 97684 Monocytes/100 WBC (Bld) 3.0 % Normal [facility] Comment on above: Performed By: #### C BCA, CMP ####[facility] ([id number])[address] [place] [address] 84776 MYELOCYTE 3.0 % Normal [facility] Comment on above: Performed By: #### C BCA, CMP ####[facility] ([id number])[address] [place] [address] 30207 Neutrophils (Bld) [#/Vol] 1.7 10*3/uL Normal 1.5-6.6 [facility] Comment on above: Performed By: #### C SPENCER, CMP ####[facility] ([id number])[address] [place] [address] 00955 Platelet mean volume (Bld) [Entitic vol] 7.8 fL Normal 7-12 [facility] Comment on above: Performed By: #### C SPENCER, CMP ####[facility] ([id number])[address] [place] [address] 07404 Platelets (Bld) [#/Vol] 229 10*3/uL Normal 150-450 [facility] Comment on above: Performed By: #### C SPENCER, CMP ####[facility] ([id number])[address] [place] [address] 34183 RBC COUNT 4.19 X10E12/L Normal 4.10-5.70 [facility] Comment on above: Performed By: #### C SPENCER, CMP ####[facility] ([id number])[address] [place] [address] 42488 RBC morphology finding Nom (Bld) REVIEWED Normal [facility] Comment on above: Performed By: #### C SPENCER, CMP ####[facility] ([id number])[address] [place] [address] 14572 SEG NEUTROPHIL 44.0 % Normal [facility] Comment on above: Performed By: #### C BCA, CMP ####[facility] ([id number])[address] [place] [address] 68239 WBC (Bld) [#/Vol] 3.9 10*3/uL Low 4.0-11.0 [facility] Comment on above: Performed By: #### C SPENCER, CMP ####[facility] ([id number])[address] [place] [address] CBC auto differentialon 08-21 Basophils (Bld) [#/Vol] 0.0 10*3/uL [facility] Basophils/100 WBC (Bld) 1.0 % [facility] Eosinophils (Bld) [#/Vol] 0.0 10*3/uL [facility] Eosinophils/100 WBC (Bld) 1.0 % [facility] Erythrocyte distribution width (RBC) [Ratio] 12.8 % 11.5 - 15.0 % [facility] Hematocrit (Bld) [Volume fraction] 36.6 % Low 39 - 49 % [facility] Hemoglobin (Bld) [Mass/Vol] 12.6 g/dL Low 13.0 - 17.0 g/dL [facility] Interpretation and review of laboratory results Abnormal [facility] Lymphocytes (Bld) [#/Vol] 2.0 10*3/uL [facility] Lymphocytes/100 WBC (Bld) 47.0 % [facility] MCH (RBC) [Entitic mass] 30.1 pg 27 - 34 pg [facility] MCHC (RBC) [Mass/Vol] 34.5 g/dL 32 - 36 g/dL [facility] MCV (RBC) [Entitic vol] 87 fL 80 - 100 fL [facility] Monocytes (Bld) [#/Vol] 0.1 10*3/uL [facility] Monocytes/100 WBC (Bld) 3.0 % [facility] Myelocytes/100 WBC (Bld) 3.0 % [facility] Neutrophils (Bld) [#/Vol] 1.7 10*3/uL [facility] Platelet mean volume (Bld) [Entitic vol] 7.8 fL 7 - 12 fL [facility] Platelets (Bld) [#/Vol] 229 10*3/uL [facility] Polymorphonuclear cells/100 WBC (Bld) REVIEWED [facility] RBC (Bld) [#/Vol] 4.19 10*6/uL [facility] Segmented neutrophils/100 WBC (Bld) 44.0 % [facility] Variant lymphocytes/100 WBC (Bld) 1.0 % [facility] WBC corrected for nucl RBC Auto (Bld) [#/Vol] 3.9 Low [facility] COMPREHENSIVE METABOLIC PANE Adam 09-05-2023 Albumin [Mass/Vol] 3.6 g/dL Normal 3.2-5.3 [facility] Comment on above: Performed By: #### C BCA, CMP ####[facility] ([id number])[address] [place] [address] 19720 ALP [Catalytic activity/Vol] 39 U/L Normal 39-130 [facility] Comment on above: Performed By: #### C BCA, CMP ####[facility] ([id number])[address] [place] [address] 21474 ALT [Catalytic activity/Vol] 34 U/L Normal 0-40 [facility] Comment on above: Performed By: #### C BCA, CMP ####[facility] ([id number])[address] [place] [address] 94496 Anion gap [Moles/Vol] 6 mmol/L Normal 5-15 [facility] Comment on above: Performed By: #### C BCA, CMP ####[facility] ([id number])[address] [place] [address] 48705 AST [Catalytic activity/Vol] 20 U/L Normal 0-41 [facility] Comment on above: Performed By: #### C BCA, CMP ####[facility] ([id number])[address] [place] [address] 24662 Bilirubin [Mass/Vol] 0.9 mg/dL Normal 0.3-1.2 [facility] Comment on above: Performed By: #### C BCA, CMP ####[facility] ([id number])[address] [place] [address] [place] [address] Calcium [Mass/Vol] 8.5 mg/dL Normal 8.5-10.5 [facility] Comment on above: Performed By: #### C BCA, CMP ####[facility] ([id number])[address] [place] [address] 04186 Chloride [Moles/Vol] 103 mmol/L Normal 98-109 [facility] Comment on above: Performed By: #### C BCA, CMP ####[facility] ([id number])[address] [place] [address] 19953 CO2 [Moles/Vol] 26 mmol/L Normal 22-32 [facility] Comment on above: Performed By: #### C BCA, CMP ####[facility] ([id number])[address] [place] [address] [place] [address] Creatinine [Mass/Vol] 0.87 mg/dL Normal 0.70-1.20 [facility] Comment on above: Result Comment: METH OD TRACEABLE TO IDMS STANDARD Performed By: #### C BCA, CMP ####[facility] ([id number])[address] [place] [address] [place] [address] eGFR (CKD-EPI) NON-RACE DEPENDENT >90 Normal >59 [facility] Comment on above: Result Comment: Repo rted eGFR is based on theCKD-EPI 2020 equation that doesnot use a race coefficient. Performed By: #### C BCA, CMP ####[facility] ([id number])[address] [place] [address] [place] [address] Glucose [Mass/Vol] 103 mg/dL High 65-99 [facility] Comment on above: Performed By: #### C BCA, CMP ####[facility] ([id number])[address] [place] [address] [place] [address] Potassium [Moles/Vol] 3.8 mmol/L Normal 3.5-5.0 [facility] Comment on above: Performed By: #### C BCA, CMP ####[facility] ([id number])[address] [place] [address] 64289 Protein [Mass/Vol] 6.4 g/dL Normal 6.0-8.0 [facility] Comment on above: Performed By: #### C BCA, CMP ####[facility] ([id number])[address] [place] [address] 93494 Sodium [Moles/Vol] 135 mmol/L Normal 134-146 [facility] Comment on above: Performed By: #### C BCA, CMP ####[facility] ([id number])[address] [place] [address] 90990 Urea nitrogen [Mass/Vol] 8 mg/dL Normal 5-23 [facility] Comment on above: Performed By: #### C BCA, CMP ####[facility] ([id number])[address] [place] [address] 80428 Comprehensive metabolic pane [facility] 09-05-2023 Albumin [Mass/Vol] 3.6 g/dL 3.2 - 5.3 g/dL [facility] ALP [Catalytic activity/Vol] 39 U/L 39 - 130 U/L [facility] ALT No additional P-5'-P [Catalytic activity/Vol] 34 U/L 0 - 40 U/L [facility] Anion gap [Moles/Vol] 6 mmol/L 5 - 15 mmol/L [facility] AST [Catalytic activity/Vol] 20 U/L 0 - 41 U/L [facility] Bilirubin [Mass/Vol] 0.9 mg/dL 0.3 - 1.2 mg/dL [facility] Calcium [Mass/Vol] 8.5 mg/dL 8.5 - 10. 5 mg/dL [facility] Chloride [Moles/Vol] 103 mmol/L 98 - 109 mmol/L [facility] CO2 [Moles/Vol] 26 mmol/L 22 - 32 mmol/L [facility] Creatinine [Mass/Vol] 0.87 mg/dL 0.70 - 1.20 mg/dL [facility] Comment on above: METHOD TRACEABLE TO [facility] STANDARD eGFR (CKD-EPI)non-race dependent - PINF [facility] Comment on above: Reported eGFR is based on the CKD-EPI 2020 equation that does not use a race coefficient. Glucose [Mass/Vol] 103 mg/dL High 65 - 99 mg/dL [facility] Interpretation and review of laboratory results Abnormal [facility] Potassium [Moles/Vol] 3.8 mmol/L 3.5 - 5.0 mmol/L [facility] Protein [Mass/Vol] 6.4 g/dL 6.0 - 8.0 g/dL [facility] Sodium [Moles/Vol] 135 mmol/L 134 - 146 mmol/L [facility] Urea nitrogen [Mass/Vol] 8 mg/dL 5 - 23 mg/dL [facility] CBC auto differentialon 07-0 Basophils (Bld) [#/Vol] 0.0 10*3/uL [facility] Basophils/100 WBC (Bld) 0.3 % [facility] Eosinophils (Bld) [#/Vol] 0.0 10*3/uL [facility] Eosinophils/100 WBC (Bld) 1.0 % [facility] Erythrocyte distribution width (RBC) [Ratio] 13.0 % 11.5 - 15.0 % [facility] Hematocrit (Bld) [Volume fraction] 37.6 % Low 39 - 49 % [facility] Hemoglobin (Bld) [Mass/Vol] 12.9 g/dL Low 13.0 - 17.0 g/dL [facility] Interpretation and review of laboratory results Abnormal [facility] Lymphocytes (Bld) [#/Vol] 1.2 10*3/uL [facility] Lymphocytes/100 WBC (Bld) 30.5 % [facility] MCH (RBC) [Entitic mass] 29.9 pg 27 - 34 pg [facility] MCHC (RBC) [Mass/Vol] 34.2 g/dL 32 - 36 g/dL [facility] MCV (RBC) [Entitic vol] 88 fL 80 - 100 fL [facility] Monocytes (Bld) [#/Vol] 0.2 10*3/uL [facility] Monocytes/100 WBC (Bld) 4.3 % [facility] Neutrophils (Bld) [#/Vol] 2.5 10*3/uL [facility] Neutrophils/100 WBC (Bld) 63.9 % [facility] Platelet mean volume (Bld) [Entitic vol] 8.5 fL 7 - 12 fL [facility] Platelets (Bld) [#/Vol] 249 10*3/uL [facility] RBC (Bld) [#/Vol] 4.29 10*6/uL [facility] WBC corrected for nucl RBC Auto (Bld) [#/Vol] 3.9 Low [facility] Comprehensive metabolic pane adam 08-29-2023 Albumin [Mass/Vol] 3.6 g/dL 3.2 - 5.3 g/dL [facility] ALP [Catalytic activity/Vol] 37 U/L Low 39 - 130 U/L [facility] ALT No additional P-5'-P [Catalytic activity/Vol] 29 U/L 0 - 40 U/L [facility] Anion gap [Moles/Vol] 9 mmol/L 5 - 15 mmol/L [facility] AST [Catalytic activity/Vol] 17 U/L 0 - 41 U/L [facility] Bilirubin [Mass/Vol] 1.0 mg/dL 0.3 - 1.2 mg/dL [facility] Calcium [Mass/Vol] 8.9 mg/dL 8.5 - 10. 5 mg/dL [facility] Chloride [Moles/Vol] 103 mmol/L 98 - 109 mmol/L [facility] CO2 [Moles/Vol] 24 mmol/L 22 - 32 mmol/L [facility] Creatinine [Mass/Vol] 0.88 mg/dL 0.70 - 1.20 mg/dL [facility] Comment on above: METHOD TRACEABLE TO [employer] STANDARD eGFR (CKD-EPI)non-race dependent - PINF [facility] Comment on above: Reported eGFR is based on the CKD-EPI 2020 equation that does not use a race coefficient. Glucose [Mass/Vol] 106 mg/dL High 65 - 99 mg/dL [facility] Interpretation and review of laboratory results Abnormal [facility] Potassium [Moles/Vol] 4.1 mmol/L 3.5 - 5.0 mmol/L [facility] Protein [Mass/Vol] 6.8 g/dL 6.0 - 8.0 g/dL [facility] Sodium [Moles/Vol] 136 mmol/L 134 - 146 mmol/L [facility] Urea nitrogen [Mass/Vol] 9 mg/dL 5 - 23 mg/dL [facility] CBC auto differentialon Basophils (Bld) [#/Vol] 0.0 10*3/uL [facility] Basophils/100 WBC (Bld) 0.3 % [facility] Eosinophils (Bld) [#/Vol] 0.1 10*3/uL [facility] Eosinophils/100 WBC (Bld) 1.3 % [facility] Erythrocyte distribution width (RBC) [Ratio] 12.6 % 11.5 - 15.0 % [facility] Hematocrit (Bld) [Volume fraction] 37.5 % Low 39 - 49 % [facility] Hemoglobin (Bld) [Mass/Vol] 13.0 g/dL 13.0 - 17.0 g/dL [facility] Interpretation and review of laboratory results Abnormal [facility] Lymphocytes (Bld) [#/Vol] 1.2 10*3/uL [facility] Lymphocytes/100 WBC (Bld) 14.0 % [facility] MCH (RBC) [Entitic mass] 30.2 pg 27 - 34 pg [facility] MCHC (RBC) [Mass/Vol] 34.6 g/dL 32 - 36 g/dL [facility] MCV (RBC) [Entitic vol] 87 fL 80 - 100 fL [facility] Center Monocytes (Bld) [#/Vol] 0.3 10*3/uL [facility] Monocytes/100 WBC (Bld) 3.7 % [facility] Neutrophils (Bld) [#/Vol] 7.0 10*3/uL High [facility] Neutrophils/100 WBC (Bld) 80.7 % [facility] Platelet mean volume (Bld) [Entitic vol] 8.9 fL 7 - 12 fL [facility] Platelets (Bld) [#/Vol] 200 10*3/uL [facility] RBC (Bld) [#/Vol] 4.30 10*6/uL [facility] WBC corrected for nucl RBC Auto (Bld) [#/Vol] 8.7 [facility] Comprehensive metabolic pane adam 08-22-2023 Albumin [Mass/Vol] 3.5 g/dL 3.2 - 5.3 g/dL [facility] ALP [Catalytic activity/Vol] 36 U/L Low 39 - 130 U/L [facility] ALT No additional P-5'-P [Catalytic activity/Vol] 24 U/L 0 - 40 U/L [facility] Anion gap [Moles/Vol] 9 mmol/L 5 - 15 mmol/L [facility] AST [Catalytic activity/Vol] 19 U/L 0 - 41 U/L [facility] Bilirubin [Mass/Vol] 1.9 mg/dL High 0.3 - 1.2 mg/dL [facility] Calcium [Mass/Vol] 8.3 mg/dL Low 8.5 - 10. 5 mg/dL [facility] Chloride [Moles/Vol] 97 mmol/L Low 98 - 109 mmol/L [facility] CO2 [Moles/Vol] 23 mmol/L 22 - 32 mmol/L [facility] Creatinine [Mass/Vol] 0.99 mg/dL 0.70 - 1.20 mg/dL [facility] Comment on above: METHOD TRACEABLE TO IDMS STANDARD eGFR (CKD-EPI)non-race dependent - PINF [facility] Comment on above: Reported eGFR is based on the CKD-EPI 2020 equation that does not use a race coefficient. Glucose [Mass/Vol] 123 mg/dL High 65 - 99 mg/dL [facility] Interpretation and review of laboratory results Abnormal [facility] Potassium [Moles/Vol] 3.6 mmol/L 3.5 - 5.0 mmol/L [facility] Protein [Mass/Vol] 6.9 g/dL 6.0 - 8.0 g/dL [facility] Sodium [Moles/Vol] 129 mmol/L Low 134 - 146 mmol/L [facility] Urea nitrogen [Mass/Vol] 10 mg/dL 5 - 23 mg/dL [facility] CBC auto differentialon 07-23 Basophils (Bld) [#/Vol] 0.1 10*3/uL [facility] Basophils/100 WBC (Bld) 0.7 % [facility] Eosinophils (Bld) [#/Vol] 0.2 10*3/uL [facility] Eosinophils/100 WBC (Bld) 2.8 % [facility] Erythrocyte distribution width (RBC) [Ratio] 12.7 % 11.5 - 15.0 % [facility] Hematocrit (Bld) [Volume fraction] 41.8 % 39 - 49 % [facility] Hemoglobin (Bld) [Mass/Vol] 15.0 g/dL 13.0 - 17.0 g/dL [facility] Lymphocytes (Bld) [#/Vol] 1.2 10*3/uL [facility] Lymphocytes/100 WBC (Bld) 13.8 % [facility] MCH (RBC) [Entitic mass] 30.6 pg 27 - 34 pg [facility] MCHC (RBC) [Mass/Vol] 35.8 g/dL 32 - 36 g/dL [facility] MCV (RBC) [Entitic vol] 86 fL 80 - 100 fL [facility] Monocytes (Bld) [#/Vol] 0.6 10*3/uL [facility] Monocytes/100 WBC (Bld) 7.1 % [facility] Neutrophils (Bld) [#/Vol] 6.5 10*3/uL [facility] Neutrophils/100 WBC (Bld) 75.6 % [facility] Platelet mean volume (Bld) [Entitic vol] 8.8 fL 7 - 12 fL [facility] Platelets (Bld) [#/Vol] 234 10*3/uL [facility] RBC (Bld) [#/Vol] 4.89 10*6/uL [facility] WBC corrected for nucl RBC Auto (Bld) [#/Vol] 8.6 [facility] Comprehensive metabolic pane adam 08-15-2023 Albumin [Mass/Vol] 4.1 g/dL 3.2 - 5.3 g/dL [facility] ALP [Catalytic activity/Vol] 44 U/L 39 - 130 U/L [facility] ALT No additional P-5'-P [Catalytic activity/Vol] 23 U/L 0 - 40 U/L [facility] Anion gap [Moles/Vol] 8 mmol/L 5 - 15 mmol/L [facility] AST [Catalytic activity/Vol] 26 U/L 0 - 41 U/L [facility] Bilirubin [Mass/Vol] 1.4 mg/dL High 0.3 - 1.2 mg/dL [facility] Calcium [Mass/Vol] 10.4 mg/dL 8.5 - 10. 5 mg/dL [facility] Chloride [Moles/Vol] 99 mmol/L 98 - 109 mmol/L [facility] CO2 [Moles/Vol] 25 mmol/L 22 - 32 mmol/L [facility] Creatinine [Mass/Vol] 1.09 mg/dL 0.70 - 1.20 mg/dL [facility] Comment on above: METHOD TRACEABLE TO [facility] STANDARD eGFR (CKD-EPI)non-race dependent 85 - PINF [facility] Comment on above: Reported eGFR is based on the CKD-EPI 2020 equation that does not use a race coefficient. Glucose [Mass/Vol] 124 mg/dL High 65 - 99 mg/dL [facility] Interpretation and review of laboratory results Abnormal [facility] Potassium [Moles/Vol] 3.7 mmol/L 3.5 - 5.0 mmol/L [facility] Protein [Mass/Vol] 7.9 g/dL 6.0 - 8.0 g/dL [facility] Sodium [Moles/Vol] 132 mmol/L Low 134 - 146 mmol/L [facility] Urea nitrogen [Mass/Vol] 12 mg/dL 5 - 23 mg/dL [facility] Free T4 [Mass/Vol]on 024 [facility] Laboratory - Chemistry and C hemistry - challengeon 08-05-2023 Free T4 [Mass/Vol] 1.36 ng/dL 0.61 - 1. 60 ng/dL [facility] TSH Qn 0.63 m[IU]/L [facility] Albumin [Mass/Vol] 4.3 g/dL 3.2 - 5.3 g/dL [facility] ALP [Catalytic activity/Vol] 45 U/L 39 - 130 U/L [facility] ALT No additional P-5'-P [Catalytic activity/Vol] 25 U/L 0 - 40 U/L [facility] Anion gap [Moles/Vol] 7 mmol/L 5 - 15 mmol/L [facility] AST [Catalytic activity/Vol] 28 U/L 0 - 41 U/L [facility] Bilirubin [Mass/Vol] 1.2 mg/dL 0.3 - 1.2 mg/dL [facility] Calcium [Mass/Vol] 9.9 mg/dL 8.5 - 10. 5 mg/dL [facility] Chloride [Moles/Vol] 103 mmol/L 98 - 109 mmol/L [facility] CO2 [Moles/Vol] 24 mmol/L 22 - 32 mmol/L [facility] Creatinine [Mass/Vol] 1.08 mg/dL 0.70 - 1.20 mg/dL [facility] Comment on above: METHOD TRACEABLE TO IDMS STANDARD Glucose [Mass/Vol] 102 mg/dL High 65 - 99 mg/dL [facility] Potassium [Moles/Vol] 4.1 mmol/L 3.5 - 5.0 mmol/L [facility] Protein [Mass/Vol] 8.4 g/dL High 6.0 - 8.0 g/dL [facility] Sodium [Moles/Vol] 134 mmol/L 134 - 146 mmol/L [facility] Urea nitrogen [Mass/Vol] 11 mg/dL 5 - 23 mg/dL [facility] Laboratory - Hematology and Cell countson 08-05-2023 Basophils (Bld) [#/Vol] 0.1 10*3/uL [facility] Basophils/100 WBC (Bld) 0.7 % [facility] Eosinophils (Bld) [#/Vol] 0.2 10*3/uL [facility] Eosinophils/100 WBC (Bld) 2.9 % [facility] Erythrocyte distribution width (RBC) [Ratio] 12.7 % 11.5 - 15.0 % [facility] Hematocrit (Bld) [Volume fraction] 41.5 % 39 - 49 % [facility] Hemoglobin (Bld) [Mass/Vol] 14.3 g/dL 13.0 - 17.0 g/dL [facility] Lymphocytes (Bld) [#/Vol] 1.6 10*3/uL [facility] Lymphocytes/100 WBC (Bld) 20.6 % [facility] MCH (RBC) [Entitic mass] 30.2 pg 27 - 34 pg [facility] MCHC (RBC) [Mass/Vol] 34.4 g/dL 32 - 36 g/dL [facility] MCV (RBC) [Entitic vol] 88 fL 80 - 100 fL [facility] Monocytes (Bld) [#/Vol] 0.6 10*3/uL [facility] Monocytes/100 WBC (Bld) 7.4 % [facility] Neutrophils (Bld) [#/Vol] 5.3 10*3/uL [facility] Neutrophils/100 WBC (Bld) 68.4 % [facility] Platelet mean volume (Bld) [Entitic vol] 8.5 fL 7 - 12 fL [facility] Platelets (Bld) [#/Vol] 239 10*3/uL [facility] RBC (Bld) [#/Vol] 4.72 10*6/uL [facility] WBC corrected for nucl RBC Auto (Bld) [#/Vol] 7.8 [facility] No Panel Informationon 08-04 eGFR (CKD-EPI)non-race dependent 86 - PINF [facility] Comment on above: Reported eGFR is based on the CKD-EPI 2020 equation that does not use a race coefficient. Interpretation and review of laboratory results Abnormal [facility] TSH Qnon 06-14-2024 [facility] ECG 12 Leadon 07-20-2023 Atrial fibrillation with a rapid ventricular response Right axis deviation QTc 402 ms [facility] Work Phone: ECG 12 lead ECGon 07-05-2023 ECG 12 lead ECG [facility] Main [place] [id number] Electrocardiograph Report Signed Patient: Arvin Julien MR#: [id number] : 1980 Acct:[id number] Age/Sex: 43 / M ADM Date: 07/05/23 Loc: PO Room: Type: DEP SDC Attending Dr: Fermin Wall MD Ordering Provider: [...] ECG No previous ECGs available Confirmed by [facility]E GREGORY [facility] ([id number] on 07/06/2023 11:37:22 AM Referred By: Fermin Wall Electronically Signed By:EMELIA WALL MD [facility] Transcribed By: MUS Signed By Fermin Wall MD 07/06/23 1137 Normal [facility] ECG post procedureon 024 ECG post procedure [facility] Main [address] [address] Electrocardiograph Report Signed Patient: Arvin Julien MR#: [id number] : 1980 Acct:[id number] Age/Sex: 43 / M ADM Date: 07/05/23 Loc: PO Room: Type: DEP SDC Attending Dr: Fermin Wall MD Ordering Provider: [...] rhythm has replaced Atrial fibrillation Confirmed by VIVIANE GREGORY [facility], EMELIA ([id number]) on 07/06/2023 11:37:27 AM Referred By: Fermin Wall Electronically Signed By:EMELIA WALL MD [facility] Transcribed By: MUS Signed By Fermin Wall MD 07/06/23 1137 Normal [facility] Electrolyteson 07-05-2023 Anion gap [Moles/Vol] 13.0 mmol/L Normal 6.0-15.0 [facility] Comment on above: Result Comment: PERF ORMED BY: [place] [address] PATHOLOGIST MEDICAL LANGUAGE SPECIALIST PAYAL WERNER M.D. Performed By: #### L YTES #### [address] Chloride [Moles/Vol] 102 mmol/L Normal 98-107 [facility] Comment on above: Performed By: #### L YTES #### [place] [address] [place] CO2 [Moles/Vol] 25.2 mmol/L Normal 21.0-31.0 [facility] Comment on above: Performed By: #### L YTES #### [place] [address] [place] Potassium [Moles/Vol] 4.2 mmol/L Normal 3.5-5.1 [facility] Comment on above: Performed By: #### L YTES #### [place] [address] [place] Sodium [Moles/Vol] 136 mmol/L Normal 136-145 [facility] Comment on above: Performed By: #### L YTES #### [facility] [address] Chest WO and W contrast I Von 06-16-2023 Radiology Study observation (narrative) [facility] PT Skull base to mid-thighOr dered By: Linda Melara on 06-16-2023 Radiology Study observation (narrative) [facility] Surgical Pathologyon 024 Surgical Pathology Normal [facility] Comment on above: Result Comment: [facility] [address] [place] [address] Surgical Pathology Consultation ADDENDUM PA Patient Name:ARVIN JULIEN:1980 (Age: 43)Gender:MTaken:05/31/2023eported:06/02/2023hysician(s):Katherine Orellana ([phone])Copy To:Leighann Lomeli [facility] Institute[facility] #:[id number]. Rec. #:[id number]: #[id number] Final Pathologic Diagnosis Left cervical lymph node, core biopsy (2 H&E, 2 immunostain): METASTATIC SQUAMOUS CELL CARCINOMA. Comment: The neoplastic cells are positive for p40, and negative for TTF-1, supportive of a diagnosis of a poorly differentiated squamous cell carcinoma. Report Electronically Signed Out gp/06/01/2023Glenn Chawla MD Addendum ([facility]) Date Reported: 11/01/2023 Results of PD-L1 (28-8), SemiQuant IHC, Manual dated 09/30/2023 are received from [facility], [address] [place] [address] S., [place], [place] and are as follows: Interpretation: Left cervical lymph node, specimen for PD-L1 immunohistochemistry studies (clone 28-8, [employer], [place], [place]; using a propriety detection system) ([id number]): 5% tumor cells are positive PD-L1 (membranous [...] markers. Please see the complete report from [facility] in the patient's EMR. Electronically Signed Out Glenn Chawla MD Interpretation performed at [facility], [address] [place] [address], License number: [id number]. Clinical History Malignant neoplasm of overlapping sites of right bronchus and lung. Per EMR: Non-small cell lung cancer diagnosed 06/2022. Gross Description Received in formalin, labeled ANAYA, left cervical lymph node is a 0.8 x 0.4 x 0.1 cm aggregate of burdick-atkins, feathery soft tissue fragments. The specimen is filtered and entirely submitted in one cassette. (1, ns, [id number], m6) MW mxw/05/31/2023NSK Microscopic Findings Microscopic examination performed. All special stain controls are reviewed, displaying appropriate staining. Specimen(s) Received Left Cervical lymph node biopsy Fee Codes(s): 1; 46201, 35096, 41715 Multiple labson 05-23-2023 [facility] ECG 12 Leadon 05-17-2023 Atrial fibrillation with a rapid ventricular response Rightward axis QTc 494 ms [facility] Work Phone: Surgical Pathologyon [address] Chest WO and W contrast I Von 03-28-2023 [facility] PT Skull base to mid-thighOr dered By: Linda Melara on 02-23-2023 [facility] US Heart Transthoracicon Aortic Valve Area by Continuity of Peak Velocity 2.93 [facility] Work Phone: [phone] Aortic Valve Area by Continuity of VTI 3.06 [facility] Work Phone: [phone] AV mn grad 3.0 [facility] Work Phone: [phone] AV pk grad 6.1 [facility] Work Phone: [phone] AV pk micah 1.23 [facility] Work Phone: [phone] LV A4C EF 56.8 [facility] Work Phone: [phone] LVIDd 5.50 [facility] Work Phone: [phone] LVOT diam 2.40 [facility] Work Phone: [address], [address] [place] [address] TRANSTHORACIC ECHOCARDIOGRAM REPORT Patient Name: ARVIN JULIEN Reading Physician: Carola Wall MD Study Date: 01/07/2023 Ordering Provider: Carola WALL MRN/PID: [id number] Fellow: Nurse: Date of /Age: 11 1980 / 42 years Automotive Paint Technician: Sheryl Newton RDCS, RVT Gender: M Additional Staff: Height: 182.88 cm Admit Date: Weight: 135.17 kg Admission Status: BSA: 2.52 m2 Department Location: [facility] Blood Pressure: 140 /106 mmHg Study Type: TRANSTHORACIC ECHO (TTE) COMPLETE Diagnosis/ICD: Unspecified diastolic (congestive) heart failure (CHF)-I50.30; Essential (primary) hypertension-I10; Paroxysmal atrial fibrillation-I48.0 Indication: Lung Cancer-s/p Recent Chemotherapy with Current Immunotherapy CPT Codes: Echo Complete w Full Doppler-32737 Study Detail: The following Echo studies were [...] 0.6 m/s (0.6-0.9m/s) PV Max P.3 mmHg [id number] Wall MD Electronically signed on 01/10/2023 at 11:53:27 AM Final KEVINO Fermin Wall MD - 01/10/[address], [address] [place] [address] TRANSTHORACIC ECHOCARDIOGRAM REPORT Patient Name: ARVIN Majano ANAYA Reading Physician: Carola Wall MD Study Date: 01/07/2023 Ordering Provider: Carola WALL MRN/PID: [id number] Fellow: Nurse: Date of /Age: 11 1980 / 42 years Automotive Paint Technician: Sheryl Newton RDCS Abhay Gender: M Additional Staff: Height: 182.88 cm Admit Date: Weight: 135.17 kg Admission Status: BSA: 2.52 m2 Department Location: [facility] Blood Pressure: 140 /106 mmHg Study Type: TRANSTHORACIC ECHO (TTE) COMPLETE Diagnosis/ICD: Unspecified diastolic (congestive) heart failure (CHF)-I50.30; Essential (primary) hypertension-I10; Paroxysmal atrial fibrillation-I48.0 Indication: Lung Cancer-s/p Recent Chemotherapy with Current Immunotherapy CPT Codes: Echo Complete w Full Doppler-97859 Study Detail: The following Echo studies were [...] m/s (0.6-0.9m/s) PV Max P.3 mmHg Carola Wlal MD Electronically signed on 01/10/2023 at 11:53:27 AM Final [facility] Work Phone: [facility] Work Phone: TRANSTHORACIC ECHO (TTE) COM PLETEon 01-07-2023 TRANSTHORACIC ECHO (TTE) COMPLETE [address], [place] [address] TRANSTHORACIC ECHOCARDIOGRAM REPORT Patient Name: ARVIN Melecio JULIEN Reading Physician: Carola Wall MD Study Date: 01/07/2023 Ordering Provider: Carola WALL MRN/PID: [id number] Fellow: Nurse: Date of /Age: 11 1980 / 42 years Automotive Paint Technician: Sheryl Newton RDCS, RVT Gender: M Additional Staff: Height: 182.88 cm Admit Date: Weight: 135.17 kg Admission Status: BSA: 2.52 m2 Department Location: [facility] Blood Pressure: 140 /106 mmHg Study Type: TRANSTHORACIC ECHO (TTE) COMPLETE Diagnosis/ICD: Unspecified diastolic (congestive) heart failure (CHF)-I50.30; Essential (primary) hypertension-I10; Paroxysmal atrial fibrillation-I48.0 Indication: Lung Cancer-s/p Recent Chemotherapy with Current Immunotherapy CPT Codes: Echo Complete w Full Doppler-21713 Study Detail: The following Echo studies were [...] 0.6 m/s (0.6-0.9m/s) PV Max P.3 mmHg [id number] Fermin Wall MD Electronically signed on 01/10/2023 at 11:53:27 AM Final [facility] Tobacco Screening.on 023 Tobacco use status [facility] b) No [facility] [address] DO Work Phone: Tobacco Screening.on 023 Fall risk assessment c) Not medically indicated [facility] [address] DO Work Phone: Tobacco use status [facility] b) No -[facility] [address] DO Work Phone: CNOVon 06-11-2022 CNOV Office Visit (AMDERM ) ARVIN JULIEN ([id number]) 1980 M Date Time Provider Department 06/11/22 10:45 AM KATIE BAEZ DEVIN During your visit today, we recorded the following information about you: Katie PatelAPRN. andrewBLANK DRILLER 06/11/2022 11:06 AM Signed SKIN EXAM NEW [...] Past Histories independently gathered by the clinical computer support specialist instructor and the remaining scribed note accurately describes my personal service (more content not included)... Normal [facility] CARDIAC MANDEEP ADMITon 023 CK [Catalytic activity/Vol] 255 U/L Normal 39-308 [facility] Comment on above: Performed By: #### C RADHA, CMADM #### [facility] [address] [place] [address] Dr. Davis Ryan CK.MB [Mass/Vol] 1.97 ng/mL Normal <=3.60 [facility] Comment on above: Performed By: #### C RADHA, CORBYDM #### [facility] [address] [place] [address] Dr. Davis Ryan HSTROP 4.7 pg/mL Normal 4.0-76.1 [facility] Comment on above: Result Comment: CUT- OFF POINTS HAVE BEEN ESTABLISHED BASED ON THE FOURTH UNIVERSAL DEFINITIONS OF MYOCARDIAL INFARCTION. THE UPPER REFERENCE LIMIT (URL) OF TROPONIN, DEFINED THE 99TH PERCENTILE OF cTnI DISTRIBUTION IN A REFERENCE POPULATION, HAS BEEN CONFIRMED THE DECISION THRESHOLD FOR PR DIAGNOSIS. Performed By: #### C CORBY GARCIADM #### [facility] [address] [place] [address] Dr. Davis Ryan BALJEET 66 ng/mL Normal 16-96 [facility] Comment on above: Performed By: #### C RADHA, CORBYDM #### [facility] [address] [place] [address] Dr. Davis Ryan CBC AUTO DIFFon 05-29-2022 BASO # 0.1 103/ul Normal 0.0-0.1 [facility] Comment on above: Performed By: #### C BC #### [facility] [address] [place] [address] Dr. Davis Ryan Basophils/100 WBC (Bld) 0.5 % Normal 0.2-2.0 [facility] Comment on above: Performed By: #### C BC #### [facility] [address] [place] [address] Dr. Davis Ryan EO # 0.5 103/ul Normal 0.0-0.7 [facility] Comment on above: Performed By: #### C BC #### [facility] [address] [place] [address] Dr. Davis Ryan Eosinophils/100 WBC (Bld) 3.9 % Normal 0.9-7.0 [facility] Comment on above: Performed By: #### C BC #### [facility] [address] [place] [address] Dr. Davis Ryan Erythrocyte distribution width (RBC) [Ratio] 12.9 % Normal 11.0-15.0 [facility] Comment on above: Performed By: #### C BC #### [facility] [address] [place] [address] Dr. Davis Ryan Hematocrit (Bld) [Volume fraction] 39.7 % Critically low 42.0-54.0 [facility] Comment on above: Performed By: #### C BC #### [facility] [address] [place] [address] Dr. Davis Ryan Hemoglobin (Bld) [Mass/Vol] 13.7 g/dL Critically low 14.0-18.0 [facility] Comment on above: Performed By: #### C BC #### [facility] [address] [place] [address] Dr. Davis Ryan IG # 0.04 10e3/ul Critically high 0.00-0.03 [facility] Comment on above: Performed By: #### C BC #### [facility] [address] [place] [address] Dr. Davis Ryan IG % 0.3 % Normal 0.0-0.5 [facility] Comment on above: Performed By: #### C BC #### [facility] [address] [place] [address] Dr. Davis Ryan LYMPH # 2.0 103/ul Normal 1.2-3.8 [facility] Comment on above: Performed By: #### C BC #### [facility] [address] [place] [address] Dr. Davis Ryan Lymphocytes/100 WBC (Bld) 16.7 % Critically low 20.5-60.0 [facility] Comment on above: Performed By: #### C BC #### [facility] [address] [place] [address] Dr. Davis Ryan MANUAL DIFF REQ NO Normal [facility] Comment on above: Performed By: #### C BC #### [facility] [address] [place] [address] Dr. Davis Ryan MCH (RBC) [Entitic mass] 30.4 pg Normal 25.9-34.0 [facility] Comment on above: Performed By: #### C BC #### [facility] [address] [place] [address] Dr. Davis Ryan MCHC (RBC) [Mass/Vol] 34.5 g/dL Normal 29.9-35.2 [facility] Comment on above: Performed By: #### C BC #### [facility] [address] [place] [address] Dr. Davis Ryan MCV (RBC) [Entitic vol] 88.2 fL Normal 80.0-94.0 [facility] Comment on above: Performed By: #### C BC #### [facility] [address] [place] [address] Dr. Davis Ryan MONO # 1.2 103/ul Critically high 0.3-0.8 [facility] Comment on above: Performed By: #### C BC #### [facility] [address] [place] [address] Dr. Davis Ryan Monocytes/100 WBC (Bld) 10.1 % Normal 1.7-12.0 [facility] Comment on above: Performed By: #### C BC #### [facility] [address] [place] [address] Dr. Davis Ryan NEUT # 8.3 103/ul Critically high 1.4-6.5 [facility] Comment on above: Performed By: #### C BC #### [facility] [address] [place] [address] Dr. Davis Ryan Neutrophils/100 WBC (Bld) 68.5 % Normal 43.0-75.0 [facility] Comment on above: Performed By: #### C BC #### [facility] [address] [address] [address] Davis Ryan Platelet mean volume (Bld) [Entitic vol] 11.0 fL Normal 9.5-13.5 [facility] Comment on above: Performed By: #### C BC #### [facility] [address] [address] [address] Davis Ryan PLT 203 103/ul Normal 150-450 [facility] Comment on above: Performed By: #### C BC #### [facility] [address] [address] [address] Davis Ryan RBC 4.50 106/ul Critically low 4.70-6.10 [facility] Comment on above: Performed By: #### C BC #### [facility] [address] [address] [address] Davis Ryan WBC 12.1 103/ul Critically high 4.0-11.0 [facility] Comment on above: Performed By: #### C BC #### [facility] [address] [place] [address] CHEST W CONon [...] NODES:There is extensive mediastinal lymphadenopathy. The largest it sales representative lymph node is in the right [...] SARIKA BAXTER Date: 2022-05-29 19:33 Normal [facility] PROF 14(COMP METB)on 023 Albumin [Mass/Vol] 3.6 g/dL Normal 3.4-5.0 [facility] Comment on above: Performed By: #### C BRIANNA GARCIA #### [facility] [address] [place], [place] [address] Dr. Davis Ryan Albumin/Globulin [Mass ratio] 0.9 {ratio} Normal [facility] Comment on above: Performed By: #### C BRIANNA GARCIA #### [facility] [address] [place], [place] [address] Dr. Davis Ryan ALP [Catalytic activity/Vol] 60 U/L Normal 46-116 [facility] Comment on above: Performed By: #### C BRIANNA GARCIA #### [facility] [address] [address] [address] Davis Ryan ALT [Catalytic activity/Vol] 34 U/L Normal 16-63 [facility] Comment on above: Performed By: #### C RADHA, CMADM #### [facility] [address] [address] [address] Davis Ryan Anion gap [Moles/Vol] 13.7 mmol/L Normal [facility] Comment on above: Performed By: #### C RADHA, CMADM #### [facility] [address] [address] [address] Davis Ryan AST [Catalytic activity/Vol] 31 U/L Normal 15-37 [facility] Comment on above: Performed By: #### C RADHA, CORBYDM #### [facility] [address] [address] [address] Davis Ryan Bilirubin [Mass/Vol] 1.0 mg/dL Normal 0.2-1.0 [facility] Comment on above: Performed By: #### C RADHA, CMADM #### [facility] [address] [address] [address] Davis Ryan Calcium [Mass/Vol] 9.1 mg/dL Normal 8.5-10.1 [facility] Comment on above: Performed By: #### C RADHA, CMADM #### [facility] [address] [address] [address] Davis Ryan Chloride [Moles/Vol] 100 mmol/L Normal 98-107 [facility] Comment on above: Performed By: #### C RADHA, CMADM #### [facility] [address] [address] [address] Davis Ryan CO2 [Moles/Vol] 25.4 mmol/L Normal 21.0-32.0 [facility] Comment on above: Performed By: #### C RADHA, CMADM #### [facility] [address] [address] [address] Davis Ryan Creatinine [Mass/Vol] 0.71 mg/dL Normal 0.70-1.30 [facility] Comment on above: Performed By: #### C RADHA, BRIANNA #### [facility] [address] [address] [address] Davis Ryan EGFR-AF MACANESE >60 Normal >=60 [facility] Comment on above: Performed By: #### C MP, CMADM #### [facility] [address] [address] [address] Davis Ryan EGFR-NON AF MACANESE >60 Normal >=60 [facility] Comment on above: Performed By: #### C MP, CMADM #### [facility] [address] [address] [address] Davis Ryan Globulin (S) [Mass/Vol] 3.9 g/dL Normal [facility] Comment on above: Performed By: #### C RADHA, CMADM #### [facility] [address] [address] [address] Davis Ryan Glucose [Mass/Vol] 136 mg/dL Critically high 74-106 T [facility] Comment on above: Performed By: #### C RADHA, CMADM #### [facility] [address] [address] [address] Davis Ryan Potassium [Moles/Vol] 4.1 mmol/L Normal 3.5-5.1 [facility] Comment on above: Result Comment: spec imen slightly hemolysed, result may be spurious. Performed By: #### C RADHA, CMADM #### [facility] [address] [address] [address] Davis Ryan Protein [Mass/Vol] 7.5 g/dL Normal 6.4-8.2 [facility] Comment on above: Performed By: #### C MP, CMADM #### [facility] [address] [address] [address] Davis Ryan Sodium [Moles/Vol] 135 mmol/L Critically low 136-145 [facility] Comment on above: Performed By: #### C MP, CMADM #### [facility] [address] [address] [address] Davis Ryan Urea nitrogen [Mass/Vol] 8.0 mg/dL Normal 7.0-18.0 [facility] Comment on above: Performed By: #### C RADHA, CMADM #### [facility] [address] [address] [address] Davis Ryan Urea nitrogen/Creatinine [Mass ratio] 11.3 mg/mg Normal [facility] Comment on above: Performed By: #### C RADHA, CMADM #### [facility] [address] [place], [place] [address] Dr. Davis Ryan XR CHEST 2 Von [...] by: AMBIKA CARVER Date: 2022-05-29 17:31 Normal [facility] Office Visit (Cardiology)on 03-03-2022 Follow-up visit Diagnoses/Problems [...] we can help. You may also call 6-736-UPEHi-NalysisNOW for free resources and assistance.; Status:Complete - [...] up in [9 ] months Chief Complaint ARVIN JULIEN is being seen for a 9 [...] Recorded: 03Mar2022 02:13PM Heart Rate88, R Radial Xmmpkssb983, LUE, Sitting Vxoavduii19, LUE, Sitting Height6 ft 1 in Gbukrc895 lb BMI Fjhulogbgm37.45 kg/m2 BSA Calculated2.55 Tobacco Usea) Yes Patient [...] little energy3-Near (more content not included)... Normal [facility] Tobacco Screening.on 023 Adult depression screening assessment Yes [email or web address] [email or web address] [place] [address] DO Work Phone: Adult depression screening assessment Moderate (10-14) [facility] [email or web address] [place] [address] DO Work Phone: Fall risk assessment c) Not medically indicated MP-No rth [facility] DO Work Phone: Tobacco use status [facility] a) Yes [facility] DO Work Phone: Tobacco Screening. Yes [facility] [address] DO Work Phone: [phone] Tobacco Screening. 2-More than half the days [facility] Shannan Thorne DO Work Phone: [phone] Tobacco Screening. 3-Nearly every day [facility] DO Work Phone: [phone] Tobacco Screening. 0-Not at all [facility] [place] [address] DO Work Phone: Tobacco Screening. Somewhat Difficult [facility] Shannan Thorne DO Work Phone: Office Visit (Cardiology)on 05-21-2021 [...] we can help. You may also call 3-206-NQDI-NOW for free resources and assistance.; Status:Complete - Retrospective Authorization; Done: 21May2021 Tobacco Use Screening; Status:Complete; Done: 21May2021 Patient Instructions By signing my name below, I, Urmila Rothman LPN, Scribe, attest that this documentation has [...] well controlled. His test results from the [facility] were reviewed. They basically were normal. There [...] Recorded: 21May2021 01:42PM Heart Rate76, R Radial Qeqrbema782, LUE, Sitting Qwjtsckdw55, LUE, Sitting Height6 ft 1 in Yezwlp962 lb BMI Tqybufyfhr51.03 kg/m2 BSA Calculated2.6 Tobacco Usea) Yes Patient [...] normal skin (more content not included)... Normal [facility] Tobacco Screening.on 022 Tobacco use status [facility] a) Yes [facility] [address] DO Work Phone: Tobacco Screening. Yes [facility] [address] DO Work Phone: Vital Signs Date Time Vital Sign Value Performing Clinician Facility 08-31-2024 11:20-0400 Body height 185.4 cm Connor Gonzalez MD Work Phone: [facility] 08-31-2024 11:20-0400 Body mass index (BMI) [Ratio] 32.41 kg/m2 Connor Gonzalez MD Work Phone: [facility] 08-31-2024 11:20-0400 Body temperature 98.01 [degF] Connor Gonzalez MD Work Phone: [facility] 08-31-2024 11:20-0400 Body weight 111.4 kg Connor Gonzalez MD Work Phone: [facility] 08-31-2024 11:20-0400 Diastolic blood pressure 75 mm[Hg] Connor Gonzalez MD Work Phone: [facility] 08-31-2024 11:20-0400 Heart rate 90 /min Connor Gonzalez MD Work Phone: [facility] 08-31-2024 11:20-0400 Respiratory rate 20 /min Connor Gonzalez MD Work Phone: [facility] 08-31-2024 11:20-0400 SaO2% (BldA) [Mass fraction] 94 % Connor Gonzalez MD Work Phone: [facility] 08-31-2024 11:20-0400 Systolic blood pressure 125 mm[Hg] Connor Gonzalez MD Work Phone: [facility] 08-21-2024 11:37-0400 Body height 185 cm Pfo 5 [facility] 08-21-2024 11:37-0400 Body mass index (BMI) [Ratio] 32.6 kg/m2 Pfo 5 [facility] 08-21-2024 11:37-0400 Body temperature 97.9 [degF] Pfo 5 [facility] 08-21-2024 11:37-0400 Body weight 111.58 kg Pfo 5 [facility] 08-21-2024 11:37-0400 Diastolic blood pressure 65 mm[Hg] Pfo 5 [facility] 08-21-2024 11:37-0400 Heart rate 97 /min Pfo 5 [facility] 08-21-2024 11:37-0400 Respiratory rate 16 /min Pfo 5 [facility] 08-21-2024 11:37-0400 SaO2% (BldA) [Mass fraction] 91 % Pfo 5 [facility] 08-21-2024 11:37-0400 Systolic blood pressure 120 mm[Hg] Pfo 5 [facility] 08-07-2024 13:03-0400 Body height 185 cm Pfo 2 [facility] 08-07-2024 13:03-0400 Body mass index (BMI) [Ratio] 33.69 kg/m2 Pfo 2 [facility] 08-07-2024 13:03-0400 Body temperature 97.7 [degF] Pfo 2 [facility] 08-07-2024 13:03-0400 Body weight 115.3 kg Pfo 2 [facility] 08-07-2024 13:03-0400 Diastolic blood pressure 62 mm[Hg] Pfo 2 [facility] 08-07-2024 13:03-0400 Heart rate 92 /min Pfo 2 [facility] 08-07-2024 13:03-0400 Respiratory rate 16 /min Pfo 2 [facility] 08-07-2024 13:03-0400 SaO2% (BldA) [Mass fraction] 95 % Pfo 2 [facility] 08-07-2024 13:03-0400 Systolic blood pressure 112 mm[Hg] Pfo 2 [facility] 07-24-2024 11:26-0400 Body height 185 cm Pfo 1 [facility] 07-24-2024 11:26-0400 Body mass index (BMI) [Ratio] 34.43 kg/m2 Pfo 1 [facility] 07-24-2024 11:26-0400 Body temperature 97.9 [degF] Pfo 1 [facility] 07-24-2024 11:26-0400 Body weight 117.84 kg Pfo 1 [facility] 07-24-2024 11:26-0400 Diastolic blood pressure 68 mm[Hg] Pfo 1 [facility] 07-24-2024 11:26-0400 Heart rate 96 /min Pfo 1 [facility] 07-24-2024 11:26-0400 Respiratory rate 18 /min Pfo 1 [facility] 07-24-2024 11:26-0400 SaO2% (BldA) [Mass fraction] 92 % Pfo 1 [facility] 07-24-2024 11:26-0400 Systolic blood pressure 113 mm[Hg] Pfo 1 [facility] 07-20-2024 14:19-0400 Body height 185 cm Connor Gonzalez MD Work Phone: [facility] 07-20-2024 14:19-0400 Body mass index (BMI) [Ratio] 34.35 kg/m2 Connor Gonzalez MD Work Phone: [facility] 07-20-2024 14:19-0400 Body temperature 98.01 [degF] Connor Gonzalez MD Work Phone: [facility] 07-20-2024 14:19-0400 Body weight 117.57 kg Connor Gonzalez MD Work Phone: [facility] 07-20-2024 14:19-0400 Diastolic blood pressure 72 mm[Hg] Connor Gonzalez MD Work Phone: [facility] 07-20-2024 14:19-0400 Heart rate 93 /min Connor Gonzalez MD Work Phone: [facility] 07-20-2024 14:19-0400 Respiratory rate 16 /min Connor Gonzalez MD Work Phone: [facility] 07-20-2024 14:19-0400 SaO2% (BldA) [Mass fraction] 95 % Connor Gonzalez MD Work Phone: [facility] 07-20-2024 14:19-0400 Systolic blood pressure 111 mm[Hg] Connor Gonzalez MD Work Phone: [facility] 07-10-2024 13:40-0400 Body height 185 cm Pfo 2 [facility] 07-10-2024 13:40-0400 Body mass index (BMI) [Ratio] 34.96 kg/m2 Pfo 2 [facility] 07-10-2024 13:40-0400 Body temperature 98.4 [degF] Pfo 2 [facility] 07-10-2024 13:40-0400 Body weight 119.66 kg Pfo 2 [facility] 07-10-2024 13:40-0400 Diastolic blood pressure 67 mm[Hg] Pfo 2 [facility] 07-10-2024 13:40-0400 Heart rate 92 /min Pfo 2 [facility] 07-10-2024 13:40-0400 Respiratory rate 18 /min Pfo 2 [facility] 07-10-2024 13:40-0400 SaO2% (BldA) [Mass fraction] 96 % Pfo 2 [facility] 07-10-2024 13:40-0400 Systolic blood pressure 110 mm[Hg] Pfo 2 [facility] 06-29-2024 11:27-0400 Body mass index (BMI) [Ratio] 34.99 kg/m2 Katie Torres DO Work Phone: [facility] 06-29-2024 11:27-0400 Body temperature 97.81 [degF] Katie Torres DO Work Phone: [facility] 06-29-2024 11:27-0400 Body weight 119.75 kg Katie Torres DO Work Phone: [facility] 06-29-2024 11:27-0400 Diastolic blood pressure 72 mm[Hg] Katie Torres DO Work Phone: [facility] 06-29-2024 11:27-0400 Heart rate 81 /min Katie Torres DO Work Phone: [facility] 06-29-2024 11:27-0400 SaO2% (BldA) [Mass fraction] 97 % Katie Torres DO Work Phone: [facility] 06-29-2024 11:27-0400 Systolic blood pressure 130 mm[Hg] Katie Torres DO Work Phone: [facility] 06-26-2024 11:31-0400 Body height 185 cm Pfo 1 [facility] 06-26-2024 11:31-0400 Body mass index (BMI) [Ratio] 34.38 kg/m2 Pfo 1 [facility] 06-26-2024 11:31-0400 Body temperature 97.9 [degF] Pfo 1 [facility] 06-26-2024 11:31-0400 Body weight 117.66 kg Pfo 1 [facility] 06-26-2024 11:31-0400 Diastolic blood pressure 59 mm[Hg] Pfo 1 [facility] 06-26-2024 11:31-0400 Heart rate 94 /min Pfo 1 [facility] 06-26-2024 11:31-0400 Respiratory rate 15 /min Pfo 1 [facility] 06-26-2024 11:31-0400 SaO2% (BldA) [Mass fraction] 97 % Pfo 1 [facility] 06-26-2024 11:31-0400 Systolic blood pressure 95 mm[Hg] Pfo 1 [facility] 06-14-2024 10:46-0400 Body height 192 cm Katie Torres DO Work Phone: [facility] 06-14-2024 10:46-0400 Body mass index (BMI) [Ratio] 32.26 kg/m2 Katie Torres DO Work Phone: [facility] 06-14-2024 10:46-0400 Body temperature 97.7 [degF] Katie Torres DO Work Phone: [facility] 06-14-2024 10:46-0400 Body weight 118.93 kg Katie Torres DO Work Phone: [facility] 06-14-2024 10:46-0400 Diastolic blood pressure 84 mm[Hg] Katie Torres DO Work Phone: [facility] 06-14-2024 10:46-0400 Heart rate 80 /min Katie Torres DO Work Phone: [facility] 06-14-2024 10:46-0400 SaO2% (BldA) [Mass fraction] 97 % Katie Torres DO Work Phone: [facility] 06-14-2024 10:46-0400 Systolic blood pressure 140 mm[Hg] Katie Torers DO Work Phone: [facility] 06-05-2024 14:02-0400 Body height 185.4 cm Connor Gonzalez MD Work Phone: [facility] 06-05-2024 14:02-0400 Body mass index (BMI) [Ratio] 34.23 kg/m2 Connor Gonzalez MD Work Phone: [facility] 06-05-2024 14:02-0400 Body temperature 98.01 [degF] Connor Gonzalez MD Work Phone: [facility] 06-05-2024 14:02-0400 Body weight 117.66 kg Connor Gonzalez MD Work Phone: [facility] 06-05-2024 14:02-0400 Diastolic blood pressure 79 mm[Hg] Connor Gonzalez MD Work Phone: [facility] 06-05-2024 14:02-0400 Heart rate 83 /min Connor Gonzalez MD Work Phone: [facility] 06-05-2024 14:02-0400 Respiratory rate 16 /min Connor Gonzalez MD Work Phone: [facility] 06-05-2024 14:02-0400 SaO2% (BldA) [Mass fraction] 97 % Connor Gonzalez MD Work Phone: [facility] 06-05-2024 14:02-0400 Systolic blood pressure 125 mm[Hg] Connor Gonzalez MD Work Phone: [facility] 04-26-2024 13:49-0500 Body height 185.4 cm Connor Gonzalez MD Work Phone: [facility] 04-26-2024 13:49-0500 Body mass index (BMI) [Ratio] 35.42 kg/m2 Connor Gonzalez MD Work Phone: [facility] 04-26-2024 13:49-0500 Body weight 121.75 kg Connor Gonzalez MD Work Phone: [facility] 04-26-2024 13:49-0500 Diastolic blood pressure 81 mm[Hg] Connor Gonzalez MD Work Phone: [facility] 04-26-2024 13:49-0500 Heart rate 105 /min Connor Gonzalez MD Work Phone: [facility] 04-26-2024 13:49-0500 Respiratory rate 20 /min Connor Gonzalez MD Work Phone: [facility] 04-26-2024 13:49-0500 SaO2% (BldA) [Mass fraction] 99 % Connor Gonzalez MD Work Phone: [facility] 04-26-2024 13:49-0500 Systolic blood pressure 137 mm[Hg] Connor Gonzalez MD Work Phone: [facility] 04-24-2024 12:49-0500 Body height 185.4 cm Pfo 1 [facility] 04-24-2024 12:49-0500 Body mass index (BMI) [Ratio] 35.55 kg/m2 Pfo 1 [facility] 04-24-2024 12:49-0500 Body temperature 97.81 [degF] Pfo 1 [facility] 04-24-2024 12:49-0500 Body weight 122.2 kg Pfo 1 [facility] 04-24-2024 12:49-0500 Diastolic blood pressure 62 mm[Hg] Pfo 1 [facility] 04-24-2024 12:49-0500 Heart rate 76 /min Pfo 1 [facility] 04-24-2024 12:49-0500 Respiratory rate 16 /min Pfo 1 [facility] 04-24-2024 12:49-0500 SaO2% (BldA) [Mass fraction] 99 % Pfo 1 [facility] 04-24-2024 12:49-0500 Systolic blood pressure 108 mm[Hg] Pfo 1 [facility] 04-10-2024 11:54-0500 Body height 185.4 cm Pfo 1 [facility] 04-10-2024 11:54-0500 Body mass index (BMI) [Ratio] 35.13 kg/m2 Pfo 1 [facility] 04-10-2024 11:54-0500 Body temperature 98.91 [degF] Pfo 1 [facility] 04-10-2024 11:54-0500 Body weight 120.75 kg Pfo 1 [facility] 04-10-2024 11:54-0500 Diastolic blood pressure 61 mm[Hg] Pfo 1 [facility] 04-10-2024 11:54-0500 Heart rate 84 /min Pfo 1 [facility] 04-10-2024 11:54-0500 Respiratory rate 16 /min Pfo 1 [facility] 04-10-2024 11:54-0500 SaO2% (BldA) [Mass fraction] 96 % Pfo 1 [facility] 04-10-2024 11:54-0500 Systolic blood pressure 112 mm[Hg] Pfo 1 [facility] 03-27-2024 12:00-0500 Body height 185.4 cm Pfo 1 [facility] 03-27-2024 12:00-0500 Body mass index (BMI) [Ratio] 34.75 kg/m2 Pfo 1 [facility] 03-27-2024 12:00-0500 Body temperature 97.9 [degF] Pfo 1 [facility] 03-27-2024 12:00-0500 Body weight 119.48 kg Pfo 1 [facility] 03-27-2024 12:00-0500 Diastolic blood pressure 74 mm[Hg] Pfo 1 [facility] 03-27-2024 12:00-0500 Heart rate 81 /min Pfo 1 [facility] 03-27-2024 12:00-0500 Respiratory rate 18 /min Pfo 1 [facility] 03-27-2024 12:00-0500 SaO2% (BldA) [Mass fraction] 95 % Pfo 1 [facility] 03-27-2024 12:00-0500 Systolic blood pressure 120 mm[Hg] Pfo 1 [facility] 03-09-2024 14:16-0500 Body mass index (BMI) [Ratio] 37.85 kg/m2 Connor Gonzalez MD Work Phone: [facility] 03-09-2024 14:16-0500 Body temperature 97.7 [degF] Connor Gonzalez MD Work Phone: [facility] 03-09-2024 14:16-0500 Body weight 125.92 kg Connor Gonzalez MD Work Phone: [facility] 03-09-2024 14:16-0500 Diastolic blood pressure 66 mm[Hg] Connor Gonzalez MD Work Phone: [facility] 03-09-2024 14:16-0500 Heart rate 90 /min Connor Gonzalez MD Work Phone: [facility] 03-09-2024 14:16-0500 Respiratory rate 16 /min Connor Gonzalez MD Work Phone: [facility] 03-09-2024 14:16-0500 SaO2% (BldA) [Mass fraction] 99 % Connor Gonzalez MD Work Phone: [facility] 03-09-2024 14:16-0500 Systolic blood pressure 114 mm[Hg] Connor Gonzalez MD Work Phone: [facility] 01-26-2024 12:37-0500 Body height 182.4 cm Connor Gonzalez MD Work Phone: [facility] 01-26-2024 12:37-0500 Body mass index (BMI) [Ratio] 38.86 kg/m2 Connor Gonzalez MD Work Phone: [facility] 01-26-2024 12:37-0500 Body temperature 98.29 [degF] Connor Gonzalez MD Work Phone: [facility] 01-26-2024 12:37-0500 Body weight 129.28 kg Connor Gonzalez MD Work Phone: [facility] 01-26-2024 12:37-0500 Diastolic blood pressure 79 mm[Hg] Connor Gonzalez MD Work Phone: [facility] 01-26-2024 12:37-0500 Heart rate 90 /min Connor Gonzalez MD Work Phone: [facility] 01-26-2024 12:37-0500 Respiratory rate 17 /min Connor Gonzalez MD Work Phone: [facility] 01-26-2024 12:37-0500 SaO2% (BldA) [Mass fraction] 98 % Connor Gonzalez MD Work Phone: [facility] 01-26-2024 12:37-0500 Systolic blood pressure 108 mm[Hg] Connor Gonzalez MD Work Phone: [facility] 01-10-2024 12:33-0500 Body height 182.4 cm Pfo 2 [facility] 01-10-2024 12:33-0500 Body mass index (BMI) [Ratio] 38.24 kg/m2 Pfo 2 [facility] 01-10-2024 12:33-0500 Body temperature 98.1 [degF] Pfo 2 [facility] 01-10-2024 12:33-0500 Body weight 127.23 kg Pfo 2 [facility] 01-10-2024 12:33-0500 Diastolic blood pressure 66 mm[Hg] Pfo 2 [facility] [facility] 12:33-0500 Heart rate 82 /min Pfo 2 [facility] 01-10-2024 12:33-0500 Respiratory rate 18 /min Pfo 2 [facility] 01-10-2024 12:33-0500 SaO2% (BldA) [Mass fraction] 99 % Pfo 2 [facility] 01-10-2024 12:33-0500 Systolic blood pressure 105 mm[Hg] Pfo 2 [facility] 12-30-2023 12:49-0500 Body height 182.4 cm Connor Gonzalez MD Work Phone: [facility] 12-30-2023 12:49-0500 Body mass index (BMI) [Ratio] 38.91 kg/m2 Connor Gonzalez MD Work Phone: [facility] 12-30-2023 12:49-0500 Body temperature 97.9 [degF] Connor Gonzalez MD Work Phone: [facility] 12-30-2023 12:49-0500 Body weight 129.46 kg Connor Gonzalez MD Work Phone: [facility] 12-30-2023 12:49-0500 Diastolic blood pressure 82 mm[Hg] Connor Gonzalez MD Work Phone: [facility] 12-30-2023 12:49-0500 Heart rate 96 /min Connor Gonzalez MD Work Phone: [facility] 12-30-2023 12:49-0500 SaO2% (BldA) [Mass fraction] 100 % Connor Gonzalez MD Work Phone: [facility] 12-30-2023 12:49-0500 Systolic blood pressure 113 mm[Hg] Connor Gonzalez MD Work Phone: [facility] 12-27-2023 12:37-0500 Body height 184.2 cm Pfo 3 [facility] 12-27-2023 12:37-0500 Body mass index (BMI) [Ratio] 37.7 kg/m2 Pfo 3 [facility] 12-27-2023 12:37-0500 Body temperature 98.49 [degF] Pfo 3 [facility] 12-27-2023 12:37-0500 Body weight 127.91 kg Pfo 3 [facility] 12-27-2023 12:37-0500 Diastolic blood pressure 71 mm[Hg] Pfo 3 [facility] 12-27-2023 12:37-0500 Heart rate 57 /min Pfo 3 [facility] 12-27-2023 12:37-0500 Respiratory rate 18 /min Pfo 3 [facility] 12-27-2023 12:37-0500 SaO2% (BldA) [Mass fraction] 97 % Pfo 3 [facility] 12-27-2023 12:37-0500 Systolic blood pressure 116 mm[Hg] Pfo 3 [facility] 12-06-2023 12:18-0400 Body height 184.2 cm Pfo 4 [facility] 12-06-2023 12:18-0400 Body mass index (BMI) [Ratio] 37.16 kg/m2 Pfo 4 [facility] 12-06-2023 12:18-0400 Body temperature 98.1 [degF] Pfo 4 [facility] 12-06-2023 12:18-0400 Body weight 126.01 kg Pfo 4 [facility] 12-06-2023 12:18-0400 Diastolic blood pressure 66 mm[Hg] Pfo 4 [facility] 12-06-2023 12:18-0400 Heart rate 99 /min Pfo 4 [facility] 12-06-2023 12:18-0400 Respiratory rate 18 /min Pfo 4 [facility] 12-06-2023 12:18-0400 SaO2% (BldA) [Mass fraction] 99 % Pfo 4 [facility] 12-06-2023 12:18-0400 Systolic blood pressure 99 mm[Hg] Pfo 4 [facility] 11-22-2023 12:17-0400 Body height 185.4 cm Pfo 4 [facility] 11-22-2023 12:17-0400 Body mass index (BMI) [Ratio] 35.89 kg/m2 Pfo 4 [facility] 11-22-2023 12:17-0400 Body temperature 98.1 [degF] Pfo 4 [facility] 11-22-2023 12:17-0400 Body weight 123.38 kg Pfo 4 [facility] 11-22-2023 12:17-0400 Diastolic blood pressure 78 mm[Hg] Pfo 4 [facility] 11-22-2023 12:17-0400 Heart rate 56 /min Pfo 4 [facility] 11-22-2023 12:17-0400 Respiratory rate 18 /min Pfo 4 [facility] 11-22-2023 12:17-0400 SaO2% (BldA) [Mass fraction] 99 % Pfo 4 [facility] 11-22-2023 12:17-0400 Systolic blood pressure 134 mm[Hg] Pfo 4 [facility] 11-17-2023 15:40-0400 Body height 185.4 cm Connor Gonzalez MD Work Phone: [facility] 11-17-2023 15:40-0400 Body mass index (BMI) [Ratio] 37.74 kg/m2 Connor Gonzalez MD Work Phone: [facility] 11-17-2023 15:40-0400 Body temperature 97.9 [degF] Connor Gonzalez MD Work Phone: [facility] 11-17-2023 15:40-0400 Body weight 129.73 kg Connor Gonzalez MD Work Phone: [facility] 11-17-2023 15:40-0400 Diastolic blood pressure 99 mm[Hg] Connor Gonzalez MD Work Phone: [facility] 11-17-2023 15:40-0400 Heart rate 74 /min Connor Gonzalez MD Work Phone: [facility] 11-17-2023 15:40-0400 Respiratory rate 18 /min Connor Gonzalez MD Work Phone: [facility] 11-17-2023 15:40-0400 SaO2% (BldA) [Mass fraction] 99 % Connor Gonzalez MD Work Phone: [facility] 11-17-2023 15:40-0400 Systolic blood pressure 143 mm[Hg] Connor Gonzalez MD Work Phone: [facility] 11-02-2023 14:00-0400 Body height 185.4 cm Heladio Davis MD Work Phone: [facility] 11-02-2023 14:00-0400 Body mass index (BMI) [Ratio] 37.87 kg/m2 Heladio Davis MD Work Phone: [facility] 11-02-2023 14:00-0400 Body weight 130.18 kg Heladio Davis MD Work Phone: [facility] 11-02-2023 14:00-0400 Diastolic blood pressure 80 mm[Hg] Heladio Davis MD Work Phone: [facility] 11-02-2023 14:00-0400 Heart rate 92 /min Heladio Davis MD Work Phone: [facility] 11-02-2023 14:00-0400 Systolic blood pressure 102 mm[Hg] Heladio Davis MD Work Phone: [facility] 10-26-2023 12:07-0400 Body height 185.4 cm Pfo 2 [facility] 10-26-2023 12:07-0400 Body mass index (BMI) [Ratio] 37.74 kg/m2 Pfo 2 [facility] 10-26-2023 12:07-0400 Body temperature 98.2 [degF] Pfo 2 [facility] 10-26-2023 12:07-0400 Body weight 129.73 kg Pfo 2 [facility] 10-26-2023 12:07-0400 Diastolic blood pressure 82 mm[Hg] Pfo 2 [facility] 10-26-2023 12:07-0400 Heart rate 113 /min Pfo 2 [facility] 10-26-2023 12:07-0400 Respiratory rate 18 /min Pfo 2 [facility] 10-26-2023 12:07-0400 SaO2% (BldA) [Mass fraction] 95 % Pfo 2 [facility] 10-26-2023 12:07-0400 Systolic blood pressure 131 mm[Hg] Pfo 2 [facility] 10-18-2023 12:20-0400 Body height 185.4 cm Pfo 6 [facility] 10-18-2023 12:20-0400 Body mass index (BMI) [Ratio] 37.77 kg/m2 Pfo 6 [facility] 10-18-2023 12:20-0400 Body temperature 99.39 [degF] Pfo 6 [facility] 10-18-2023 12:20-0400 Body weight 129.84 kg Pfo 6 [facility] 10-18-2023 12:20-0400 Diastolic blood pressure 76 mm[Hg] Pfo 6 [facility] 10-18-2023 12:20-0400 Heart rate 89 /min Pfo 6 [facility] 10-18-2023 12:20-0400 Respiratory rate 18 /min Pfo 6 [facility] 10-18-2023 12:20-0400 SaO2% (BldA) [Mass fraction] 99 % Pfo 6 [facility] 10-18-2023 12:20-0400 Systolic blood pressure 104 mm[Hg] Pfo 6 [facility] 10-11-2023 12:30-0400 Body height 185.4 cm Pfo 6 [facility] 10-11-2023 12:30-0400 Body mass index (BMI) [Ratio] 36.03 kg/m2 Pfo 6 [facility] 10-11-2023 12:30-0400 Body temperature 98.49 [degF] Pfo 6 [facility] 10-11-2023 12:30-0400 Body weight 123.83 kg Pfo 6 [facility] 10-11-2023 12:30-0400 Diastolic blood pressure 96 mm[Hg] Pfo 6 [facility] 10-11-2023 12:30-0400 Heart rate 105 /min Pfo 6 [facility] 10-11-2023 12:30-0400 Respiratory rate 18 /min Pfo 6 [facility] 10-11-2023 12:30-0400 SaO2% (BldA) [Mass fraction] 98 % Pfo 6 [facility] 10-11-2023 12:30-0400 Systolic blood pressure 139 mm[Hg] Pfo 6 [facility] 10-04-2023 12:18-0400 Body height 185.4 cm Pfo 3 [facility] 10-04-2023 12:18-0400 Body mass index (BMI) [Ratio] 36 kg/m2 Pfo 3 [facility] 10-04-2023 12:18-0400 Body temperature 98.1 [degF] Pfo 3 [facility] 10-04-2023 12:18-0400 Body weight 123.74 kg Pfo 3 [facility] 10-04-2023 12:18-0400 Diastolic blood pressure 92 mm[Hg] Pfo 3 [facility] 10-04-2023 12:18-0400 Heart rate 85 /min Pfo 3 [facility] 10-04-2023 12:18-0400 Respiratory rate 18 /min Pfo 3 [facility] 10-04-2023 12:18-0400 SaO2% (BldA) [Mass fraction] 100 % Pfo 3 [facility] 10-04-2023 12:18-0400 Systolic blood pressure 132 mm[Hg] Pfo 3 [facility] 09-16-2023 15:24-0400 Body height 185.4 cm Connor Gonzalez MD Work Phone: [facility] 09-16-2023 15:24-0400 Body mass index (BMI) [Ratio] 37.48 kg/m2 Connor Gonzalez MD Work Phone: [facility] 09-16-2023 15:24-0400 Body temperature 98.01 [degF] Connor Gonzlaez MD Work Phone: [facility] 09-16-2023 15:24-0400 Body weight 128.82 kg Connor Gonzalez MD Work Phone: [facility] 09-16-2023 15:24-0400 Diastolic blood pressure 91 mm[Hg] Connor Gonzalez MD Work Phone: [facility] 09-16-2023 15:24-0400 Heart rate 130 /min Connor Gonzalez MD Work Phone: [facility] 09-16-2023 15:24-0400 Respiratory rate 18 /min Connor Gonzalez MD Work Phone: [facility] 09-16-2023 15:24-0400 SaO2% (BldA) [Mass fraction] 99 % Connor Gonzalez MD Work Phone: [facility] 09-16-2023 15:24-0400 Systolic blood pressure 117 mm[Hg] Connor Gonzalez MD Work Phone: [facility] 09-13-2023 12:47-0400 Body height 185.4 cm Pfo 5 [facility] 09-13-2023 12:47-0400 Body mass index (BMI) [Ratio] 36.29 kg/m2 Pfo 5 [facility] 09-13-2023 12:47-0400 Body temperature 98.1 [degF] Pfo 5 [facility] 09-13-2023 12:47-0400 Body weight 124.74 kg Pfo 5 [facility] 09-13-2023 12:47-0400 Diastolic blood pressure 90 mm[Hg] Pfo 5 [facility] 09-13-2023 12:47-0400 Heart rate 78 /min Pfo 5 [facility] 09-13-2023 12:47-0400 Respiratory rate 18 /min Pfo 5 [facility] 09-13-2023 12:47-0400 SaO2% (BldA) [Mass fraction] 93 % Pfo 5 [facility] 09-13-2023 12:47-0400 Systolic blood pressure 135 mm[Hg] Pfo 5 [facility] 09-06-2023 12:37-0400 Diastolic blood pressure 71 mm[Hg] Pfo 4 [facility] 09-06-2023 12:37-0400 Systolic blood pressure 109 mm[Hg] Pfo 4 [facility] 09-06-2023 12:30-0400 Body height 185.4 cm Pfo 4 [facility] 09-06-2023 12:30-0400 Body mass index (BMI) [Ratio] 37.08 kg/m2 Pfo 4 [facility] 09-06-2023 12:30-0400 Body temperature 98.6 [degF] Pfo 4 [facility] 09-06-2023 12:30-0400 Body weight 127.46 kg Pfo 4 [facility] 09-06-2023 12:30-0400 Heart rate 62 /min Pfo 4 [facility] 09-06-2023 12:30-0400 Respiratory rate 18 /min Pfo 4 [facility] 09-06-2023 12:30-0400 SaO2% (BldA) [Mass fraction] 99 % Pfo 4 [facility] 09-05-2023 13:58-0400 Body height 185.4 cm Addison Cox MD Work Phone: [facility] 09-05-2023 13:58-0400 Body mass index (BMI) [Ratio] 36.92 kg/m2 Addison Cox MD Work Phone: [facility] 09-05-2023 13:58-0400 Body weight 126.92 kg Addison Cox MD Work Phone: [facility] 09-05-2023 13:58-0400 Diastolic blood pressure 95 mm[Hg] Addison Cox MD Work Phone: [facility] 09-05-2023 13:58-0400 Heart rate 59 /min Addison Cox MD Work Phone: [facility] 09-05-2023 13:58-0400 SaO2% (BldA) [Mass fraction] 98 % Addison Cox MD Work Phone: [facility] 09-05-2023 13:58-0400 Systolic blood pressure 133 mm[Hg] Addison Cox MD Work Phone: [facility] 08-30-2023 12:35-0400 Body height 182.9 cm Pfo 4 [facility] 08-30-2023 12:35-0400 Body mass index (BMI) [Ratio] 37.56 kg/m2 Pfo 4 [facility] 08-30-2023 12:35-0400 Body temperature 98.4 [degF] Pfo 4 [facility] 08-30-2023 12:35-0400 Body weight 125.65 kg Pfo 4 [facility] 08-30-2023 12:35-0400 Diastolic blood pressure 67 mm[Hg] Pfo 4 [facility] 08-30-2023 12:35-0400 Heart rate 75 /min Pfo 4 [facility] 08-30-2023 12:35-0400 Respiratory rate 18 /min Pfo 4 [facility] 08-30-2023 12:35-0400 SaO2% (BldA) [Mass fraction] 98 % Pfo 4 [facility] 08-30-2023 12:35-0400 Systolic blood pressure 105 mm[Hg] Pfo 4 [facility] 08-29-2023 12:54-0400 Body temperature 98.4 [degF] Pfo 1 [facility] 08-29-2023 12:54-0400 Diastolic blood pressure 75 mm[Hg] Pfo 1 [facility] 08-29-2023 12:54-0400 Heart rate 60 /min Pfo 1 [facility] 08-29-2023 12:54-0400 Respiratory rate 16 /min Pfo 1 [facility] 08-29-2023 12:54-0400 SaO2% (BldA) [Mass fraction] 99 % Pfo 1 [facility] 08-29-2023 12:54-0400 Systolic blood pressure 110 mm[Hg] Pfo 1 [facility] 08-29-2023 12:30-0400 Body mass index (BMI) [Ratio] 37.18 kg/m2 Pfo 1 [facility] 08-29-2023 12:30-0400 Body weight 124.38 kg Pfo 1 [facility] 08-23-2023 09:36-0400 Body height 182.9 cm Pfo 2 [facility] 08-23-2023 09:36-0400 Body mass index (BMI) [Ratio] 37.7 kg/m2 Pfo 2 [facility] 08-23-2023 09:36-0400 Body temperature 99.19 [degF] Pfo 2 [facility] 08-23-2023 09:36-0400 Body weight 126.1 kg Pfo 2 [facility] 08-23-2023 09:36-0400 Diastolic blood pressure 75 mm[Hg] Pfo 2 [facility] 08-23-2023 09:36-0400 Heart rate 100 /min Pfo 2 [facility] 08-23-2023 09:36-0400 Respiratory rate 18 /min Pfo 2 [facility] 08-23-2023 09:36-0400 SaO2% (BldA) [Mass fraction] 97 % Pfo 2 [facility] 08-23-2023 09:36-0400 Systolic blood pressure 119 mm[Hg] Pfo 2 [facility] 08-22-2023 11:58-0400 Body height 182.9 cm Pfo 5 [facility] 08-22-2023 11:58-0400 Body mass index (BMI) [Ratio] 37.97 kg/m2 Pfo 5 [facility] 08-22-2023 11:58-0400 Body temperature 99.7 [degF] Pfo 5 [facility] 08-22-2023 11:58-0400 Body weight 127.01 kg Pfo 5 [facility] 08-22-2023 11:58-0400 Diastolic blood pressure 79 mm[Hg] Pfo 5 [facility] 08-22-2023 11:58-0400 Heart rate 66 /min Pfo 5 [facility] 08-22-2023 11:58-0400 Respiratory rate 18 /min Pfo 5 [facility] 08-22-2023 11:58-0400 SaO2% (BldA) [Mass fraction] 96 % Pfo 5 [facility] 08-22-2023 11:58-0400 Systolic blood pressure 117 mm[Hg] Pfo 5 [facility] 08-16-2023 12:31-0400 Body height 182.9 cm Pfo 6 [facility] 08-16-2023 12:31-0400 Body mass index (BMI) [Ratio] 37.7 kg/m2 Pfo 6 [facility] 08-16-2023 12:31-0400 Body temperature 98.01 [degF] Pfo 6 [facility] 08-16-2023 12:31-0400 Body weight 126.1 kg Pfo 6 [facility] 08-16-2023 12:31-0400 Diastolic blood pressure 79 mm[Hg] Pfo 6 [facility] 08-16-2023 12:31-0400 Heart rate 89 /min Pfo 6 [facility] 08-16-2023 12:31-0400 Respiratory rate 18 /min Pfo 6 [facility] 08-16-2023 12:31-0400 SaO2% (BldA) [Mass fraction] 96 % Pfo 6 [facility] 08-16-2023 12:31-0400 Systolic blood pressure 124 mm[Hg] Pfo 6 [facility] 08-15-2023 13:14-0400 Body height 182.9 cm Pfo 1 [facility] 08-15-2023 13:14-0400 Body mass index (BMI) [Ratio] 37.15 kg/m2 Pfo 1 [facility] 08-15-2023 13:14-0400 Body weight 124.29 kg Pfo 1 [facility] 08-15-2023 13:05-0400 Body temperature 98.1 [degF] Pfo 1 [facility] 08-15-2023 13:05-0400 Diastolic blood pressure 91 mm[Hg] Pfo 1 [facility] 08-15-2023 13:05-0400 Heart rate 86 /min Pfo 1 [facility] 08-15-2023 13:05-0400 Respiratory rate 18 /min Pfo 1 [facility] 08-15-2023 13:05-0400 Systolic blood pressure 150 mm[Hg] Pfo 1 [facility] 08-05-2023 14:17-0400 Body height 182.9 cm Connor Gonzalez MD Work Phone: [facility] 08-05-2023 14:17-0400 Body mass index (BMI) [Ratio] 38.7 kg/m2 Connor Gonzalez MD Work Phone: [facility] 08-05-2023 14:17-0400 Body temperature 98.01 [degF] Connor Gonzalez MD Work Phone: [facility] 08-05-2023 14:17-0400 Body weight 129.46 kg Connor Gonzalez MD Work Phone: [facility] 08-05-2023 14:17-0400 Diastolic blood pressure 97 mm[Hg] Connor Gonzalez MD Work Phone: [facility] 08-05-2023 14:17-0400 Heart rate 60 /min Connor Gonzalez MD Work Phone: [facility] 08-05-2023 14:17-0400 Respiratory rate 20 /min Connor Gonzalez MD Work Phone: [facility] 08-05-2023 14:17-0400 SaO2% (BldA) [Mass fraction] 95 % Connor Gonzalez MD Work Phone: [facility] 08-05-2023 14:17-0400 Systolic blood pressure 134 mm[Hg] Connor Gonzalez MD Work Phone: [facility] 07-20-2023 13:54-0400 Body height 185.4 cm Fermin Wall MD Work Phone: [facility] 07-20-2023 13:54-0400 Body mass index (BMI) [Ratio] 38.13 kg/m2 Fermin Wall MD Work Phone: [facility] 07-20-2023 13:54-0400 Body weight 131.09 kg Fermin Wall MD Work Phone: [facility] 07-20-2023 13:54-0400 Diastolic blood pressure 66 mm[Hg] Fermin Wall MD Work Phone: [facility] 07-20-2023 13:54-0400 Heart rate 108 /min Fermin Wall MD Work Phone: [facility] 07-20-2023 13:54-0400 Systolic blood pressure 118 mm[Hg] Fermin Wall MD Work Phone: [facility] 06-16-2023 13:33-0400 Body height 182.9 cm Connor Gonzalez MD Work Phone: [facility] 06-16-2023 13:33-0400 Body mass index (BMI) [Ratio] 40.87 kg/m2 Connor Gonzalez MD Work Phone: [facility] 06-16-2023 13:33-0400 Body temperature 98.49 [degF] Connor Gonzalez MD Work Phone: [facility] 06-16-2023 13:33-0400 Body weight 136.71 kg Connor Gonzalez MD Work Phone: [facility] 06-16-2023 13:33-0400 Diastolic blood pressure 73 mm[Hg] Connor Gonzalez MD Work Phone: [facility] 06-16-2023 13:33-0400 Heart rate 67 /min Connor Gonzalez MD Work Phone: [facility] 06-16-2023 13:33-0400 Respiratory rate 18 /min Connor Gonzalez MD Work Phone: [facility] 06-16-2023 13:33-0400 SaO2% (BldA) [Mass fraction] 97 % Connor Gonzalez MD Work Phone: [facility] 06-16-2023 13:33-0400 Systolic blood pressure 146 mm[Hg] Connor Gonzalez MD Work Phone: [facility] 05-17-2023 10:20-0400 Body height 185.4 cm Fermin Wall MD Work Phone: [facility] 05-17-2023 10:20-0400 Body mass index (BMI) [Ratio] 39.98 kg/m2 Fermin Wall MD Work Phone: [facility] 05-17-2023 10:20-0400 Body weight 137.44 kg Fermin Wall MD Work Phone: [facility] 05-17-2023 10:20-0400 Diastolic blood pressure 92 mm[Hg] Fremin Wall MD Work Phone: [facility] 05-17-2023 10:20-0400 Heart rate 127 /min Fermin Wall MD Work Phone: [facility] 05-17-2023 10:20-0400 Systolic blood pressure 138 mm[Hg] Fermin Wall MD Work Phone: [facility] 01-07-2023 10:45-0500 Body height 182.[address] 01-07-2023 10:45-0500 Body mass index (BMI) [Ratio] 40.42 kg/m2 [address] 01-07-2023 10:45-0500 Body weight 135.[address] 01-07-2023 10:45-0500 Diastolic blood pressure 106 mm[Hg] [address] 01-07-2023 10:45-0500 Systolic blood pressure 140 mm[Hg] [address] 12-01-2022 13:29-0400 Body height 182.9 cm Fermin Wall MD Work Phone: [facility] 12-01-2022 13:29-0400 Body mass index (BMI) [Ratio] 40.42 kg/m2 Fermin Wall MD Work Phone: [facility] 12-01-2022 13:29-0400 Body weight 135.17 kg Fermin Wall MD Work Phone: [facility] 12-01-2022 13:29-0400 Diastolic blood pressure 70 mm[Hg] Fermin Wall MD Work Phone: [facility] 12-01-2022 13:29-0400 Heart rate 80 /min Fermin Wall MD Work Phone: [facility] 12-01-2022 13:29-0400 Systolic blood pressure 140 mm[Hg] Fermin Wall MD Work Phone: [facility] 08-03-2022 11:08-0400 Diastolic blood pressure 68 mm[Hg] Izzy Melecio ArangoEllen Work Phone: [facility] [address] DO Work Phone: 08-03-2022 11:08-0400 Systolic blood pressure 104 mm[Hg] Izzy Melecio ArangoEllen Work Phone: [facility] DO Work Phone: 08-03-2022 11:04-0400 Body height 185.42 cm Izzy Majano Ellen Work Phone: [facility] [address] DO Work Phone: 08-03-2022 11:04-0400 Body mass index (BMI) [Ratio] 38.13 kg/m2 Izzy Melecio Hughes Work Phone: [facility] 250 DO Work Phone: 08-03-2022 11:04-0400 Body surface area Derived from formula 2.52 m2 Izzy Melecio ArangoEllen Work Phone: [facility] 250 DO Work Phone: 08-03-2022 11:04-0400 Body weight 131.09 kg Izzy Melecio ArangoEllen Work Phone: [facility] 250 DO Work Phone: 08-03-2022 11:04-0400 Diastolic blood pressure 100 mm[Hg] Izzy Majano Ellen Work Phone: [facility] DO Work Phone: 08-03-2022 11:04-0400 Heart rate 98 /min Izzy Arangoault Work Phone: [facility] [address] DO Work Phone: 08-03-2022 11:04-0400 Systolic blood pressure 102 mm[Hg] Izzy Arangoault Work Phone: [facility] DO Work Phone: 07-13-2022 14:30-0400 Body height 185.42 cm Izzy Arangoault Work Phone: [facility] [address] DO Work Phone: 07-13-2022 14:30-0400 Body mass index (BMI) [Ratio] 38.66 kg/m2 Izzygriffin Arangoault Work Phone: [facility] 250 DO Work Phone: 07-13-2022 14:30-0400 Body surface area Derived from formula 2.53 m2 Izzy Arangoault Work Phone: [facility] 250 DO Work Phone: 07-13-2022 14:30-0400 Body weight 132.9 kg Izzy Arangoault Work Phone: [facility] [address] DO Work Phone: 07-13-2022 14:30-0400 Diastolic blood pressure 100 mm[Hg] Izzy Arangoault Work Phone: [facility] [facility] DO Work Phone: 07-13-2022 14:30-0400 Heart rate 97 /min Izzy Arangoault Work Phone: [facility] 250 DO Work Phone: 07-13-2022 14:30-0400 Systolic blood pressure 122 mm[Hg] Izzy Arangoault Work Phone: [facility] Eduardo 250 DO Work Phone: 03-03-2022 14:13-0500 Body height 185.42 cm Izzy Arangoault Work Phone: [facility] 250 DO Work Phone: 03-03-2022 14:13-0500 Body mass index (BMI) [Ratio] 39.45 kg/m2 Izzy Arangoault Work Phone: [facility] 250 DO Work Phone: 03-03-2022 14:13-0500 Body surface area Derived from formula 2.55 m2 Izzy Melecio ArangoEllen Work Phone: [facility] Eduardo 250 DO Work Phone: 03-03-2022 14:13-0500 Body weight 135.63 kg Izzy Melecio ArangoEllen Work Phone: [facility] 250 DO Work Phone: 03-03-2022 14:13-0500 Diastolic blood pressure 78 mm[Hg] Izzy Melecio ArangoEllen Work Phone: [facility] 250 DO Work Phone: 03-03-2022 14:13-0500 Heart rate 88 /min Izzy Melecio ArangoEllen Work Phone: [facility] Edu[facility] 250 DO Work Phone: 03-03-2022 14:13-0500 Systolic blood pressure 132 mm[Hg] Izzy Melecio Ellen Work Phone: [facility] Edu[facility] 250 DO Work Phone: 03-03-2022 14:13-0500 11 1 Izzy Majano Ellen Work Phone: [facility] 250 DO Work Phone: Comment on above: PHQ-9 TS 05-21-2021 13:42-0400 Body height 185.42 cm Izzy Arangoault Work Phone: [facility] Edu[facility] 250 DO Work Phone: 05-21-2021 13:42-0400 Body mass index (BMI) [Ratio] 41.03 kg/m2 Izzy Hughes Work Phone: [facility] 250 DO Work Phone: 05-21-2021 13:42-0400 Body surface area Derived from formula 2.6 m2 Izzy Hughes Work Phone: [facility] 250 DO Work Phone: 05-21-2021 13:42-0400 Body weight 141.07 kg Izzy Hughes Work Phone: [facility] Edu[facility] 250 DO Work Phone: 05-21-2021 13:42-0400 Diastolic blood pressure 72 mm[Hg] Izzy Hughes Work Phone: [facility] 250 DO Work Phone: 05-21-2021 13:42-0400 Heart rate 76 /min Izzy Hughes Work Phone: [facility] 250 DO Work Phone: 05-21-2021 13:42-0400 Systolic blood pressure 112 mm[Hg] Izzy Hughes Work Phone: [facility] 250 DO Work Phone: 05-19-2021 11:15-0400 Body height 180.34 cm Johnnie Bruce Other [employer] Other 05-19-2021 11:15-0400 Body mass index (BMI) [Ratio] 43.09 kg/m2 Johnnie Bruce Other [employer] Other 05-19-2021 11:15-0400 Body temperature 96 [degF] Johnnie Bruce Other [employer] Other 05-19-2021 11:15-0400 Body weight 140.16 kg Johnnie Bruce Other [employer] Other 05-19-2021 11:15-0400 Diastolic blood pressure 85 mm[Hg] Johnnie Bruce Other [employer] Other 05-19-2021 11:15-0400 SaO2% (BldA) [Mass fraction] 96 % Johnnie Bruce Other [employer] Other 05-19-2021 11:15-0400 Systolic blood pressure 132 mm[Hg] Johnnie Bruce Other [employer] Other Encounters Encounter Date Encounter Type Care Provider Facility Start: 09-03-2024 End: 09-05-2024 Refill Connor Gonzalez MD Work Phone: Kristine Maki [facility] - Medical Oncology Comment on above: 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 ([facility]-HCC) Start: 08-31-2024 End: 08-31-2024 Documentation procedure Endy Maki [facility] Medical Oncology Comment on above: 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 ([facility]-HCC) Start: 08-31-2024 End: 09-06-2024 Telephone encounter Nadine Samuels RN [facility] Comment on above: Transition Of Care Start: 08-31-2024 End: 08-31-2024 Office outpatient visit 40 minutes Connor Gonzalez MD Work Phone: Kristine Maki [facility] - Medical Oncology Comment on above: Stage IV squamous ce ll carcinoma of lung, unspecified laterality ([facility]-HCC); 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 ([facility]-HCC); Metastatic non-small cell lung cancer ([facility]-HCC) Start: 08-31-2024 End: 08-31-2024 ambulatory CONNOR GONZALEZ [facility] Start: 08-29-2024 End: 08-30-2024 Evaluation and management of inpatient KATIE TORRES [facility] Start: 08-21-2024 End: 08-21-2024 Orders Only Shanita Maki [facility] Medical Oncology Comment on above: 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) (Primary Dx); Stage IV squamous cell carcinoma of lung, unspecified laterality (CMS-HCC); Metastatic non-small cell lung cancer (CMS-HCC); Shortness of breath 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) (Primary Dx); Stage IV squamous cell carcinoma of lung, unspecified laterality (CMS-HCC) Start: 08-20-2024 End: 08-20-2024 ambulatory Pfo Infusion Chair 1 Kristine Maki [facility] Oncology Comment on above: Stage IV squamous ce ll carcinoma of lung, unspecified laterality (CMS-HCC) (Primary Dx); 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 ([facility]-HCC) Start: 08-13-2024 End: 08-14-2024 Orders Only Lata Cuadra LPN [facility] Start: 08-11-2024 End: 08-14-2024 Refill Addison Cox MD Work Phone: [facility] Comment on above: Squamous cell carcin nancy of right lung (CMS-HCC); 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 ([facility]-HCC); SOB (shortness of breath) Start: 08-07-2024 End: 08-07-2024 ambulatory Pfo Infusion Chair 2 Kristine Maki [facility] Medical Oncology Comment on above: 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 ([facility]-HCC) (Primary Dx); Stage IV squamous cell carcinoma of lung, unspecified laterality ([facility]-HCC) Start: 08-06-2024 End: 08-06-2024 ambulatory Pfo Infusion Chair 1 Kristine Maki [facility] Medical Oncology Comment on above: Stage IV squamous ce ll carcinoma of lung, unspecified laterality (CMS-HCC) (Primary Dx); 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) Start: 08-02-2024 End: 08-02-2024 Refill Connor Gonzalez MD Work Phone: Kristine Maki [facility] Oncology Comment on above: 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) Start: 07-24-2024 End: 07-24-2024 ambulatory Pfo Infusion Chair 1 Kristine Maki [facility] Oncology Comment on above: 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) (Primary Dx); Stage IV squamous cell carcinoma of lung, unspecified laterality (CMS-HCC) Start: 07-23-2024 End: 07-23-2024 ambulatory Pfo Infusion Chair 1 Kristine Maki [facility] Oncology Comment on above: Stage IV squamous ce ll carcinoma of lung, unspecified laterality (CMS-HCC) (Primary Dx); 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) Start: 07-20-2024 End: 07-20-2024 Office outpatient visit 25 minutes Connor Gonzalez MD Work Phone: Kristine Maki [facility] Oncology Comment on above: Stage IV squamous ce ll carcinoma of lung, unspecified laterality (CMS-HCC); 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); Metastatic non-small cell lung cancer (CMS-HCC) Start: 07-20-2024 End: 07-20-2024 Documentation procedure Alicia wright [facility] Medical Oncology Start: 07-20-2024 End: 07-20-2024 ambulatory CONNOR GONZALEZ [facility] Start: 07-10-2024 End: 07-10-2024 [facility] Comment on above: 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) (Primary Dx); Stage IV squamous cell carcinoma of lung, unspecified laterality (CMS-HCC) Start: 07-09-2024 End: 07-09-2024 [facility] Comment on above: Stage IV squamous ce ll carcinoma of lung, unspecified laterality (CMS-HCC) (Primary Dx); 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) Start: 07-04-2024 End: 07-04-2024 Telephone encounter Cristal Espinal CNA [facility] Comment on above: Med Refill 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 ([facility]-HCC) Start: 06-29-2024 End: 06-29-2024 ambulatory KATIE TORRES [facility] Start: 06-29-2024 End: 06-29-2024 Office outpatient visit 15 minutes Katie Torres DO Work Phone: [facility] Comment on above: Chronic HFrEF (heart failure with reduced ejection fraction) ([facility]-HCC) (Primary Dx); Anxiety; Stage IV squamous cell carcinoma of lung, unspecified laterality ([facility]-HCC) Start: 06-28-2024 End: 06-28-2024 [facility] Start: 06-26-2024 End: 06-26-2024 Orders Only Connor Gonzalez MD Work Phone: [facility], A Department of [facility] Comment on above: 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 ([facility]-HCC) (Primary Dx); Stage IV squamous cell carcinoma of lung, unspecified laterality ([facility]-HCC) Start: 06-25-2024 End: 06-25-2024 ambulatory [facility]fo Infusion Chair 1 [facility] Comment on above: Stage IV squamous ce ll carcinoma of lung, unspecified laterality ([facility]-HCC) (Primary Dx); 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) Start: 06-25-2024 End: 06-25-2024 [facility] Start: 06-20-2024 End: 06-20-2024 Orders Only Osiris monroe [facility] Medical Oncology Comment on above: 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 ([facility]-HCC) (Primary Dx) Start: 06-14-2024 End: 06-14-2024 ambulatory KATIE TORRES [facility] Start: 06-14-2024 End: 06-14-2024 Office outpatient new 20 minutes Katie Torres DO Work Phone: [facility] Comment on above: Chronic HFrEF (heart failure with reduced ejection fraction) ([facility]-HCC) (Primary Dx); Stage IV squamous cell carcinoma of lung, unspecified laterality ([facility]-HCC); Metastatic non-small cell lung cancer ([facility]-HCC) Start: 06-06-2024 End: 06-06-2024 ambulatory BARI COLÓN [facility] Start: 06-05-2024 End: 06-05-2024 Office outpatient visit 40 minutes Connor Gonzalez MD Work Phone: Kristine Maki [facility] Medical Oncology Comment on above: Squamous cell carcin nancy of right lung ([facility]-HCC) (Primary Dx); 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 ([facility]-HCC); Anxiety; Metastatic non-small cell lung cancer ([facility]-HCC) Start: 06-05-2024 End: 06-05-2024 Orders Only Osiris monroe [facility] Medical Oncology Start: 06-01-2024 End: 06-01-2024 ambulatory CONNOR GONZALEZ [facility] Start: 05-30-2024 End: 06-01-2024 Refill Connor Gonzalez MD Work Phone: Kristine Maki [facility] Medical Oncology Comment on above: 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 ([facility]-HCC) Start: 05-28-2024 End: 05-28-2024 Orders Only Connor Gonzalez MD Work Phone: [facility], A Department of [facility] Comment on above: 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 ([facility]-HCC) Start: 05-11-2024 End: 05-11-2024 Juice monroe [facility] Medical Oncology Comment on above: 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 ([facility]-HCC) Start: 05-07-2024 End: 05-07-2024 ambulatory [facility] Start: 04-26-2024 End: 04-26-2024 Documentation procedure Shanita Maki [facility] - Medical Oncology Start: 04-26-2024 End: 04-26-2024 Office outpatient visit 40 minutes Connor Gonzalez MD Work Phone: Kristine Maki [facility] Medical Oncology Comment on above: 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 ([facility]-HCC); Squamous cell carcinoma of right lung ([facility]-HCC); Anxiety Start: 04-26-2024 End: 04-26-2024 ambulatory CONNOR GONZALEZ [facility] Start: 04-24-2024 End: 04-24-2024 Social Work Stephany Rowland [facility] Medical Oncology Comment on above: 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 ([facility]CC) (Primary Dx); 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) Start: 04-23-2024 End: 04-23-2024 ambulatory P[facility] Infusion Chair 6 [facility] Comment on above: Squamous cell carcin nancy of right lung ([facility]-HCC) (Primary Dx); 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 ([facility]-HCC) Start: 04-17-2024 End: 04-18-2024 Telephone encounter Deandra Hubbard [facility] Start: 04-17-2024 End: 04-17-2024 ambulatory [facility] Start: 04-13-2024 End: 04-13-2024 Orders Only Endy Rowland [facility] Oncology Comment on above: 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) (Primary Dx); 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); Metastatic non-small cell lung cancer (CMS-HCC); 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 (CMS-HCC) Start: 04-11-2024 End: 04-11-2024 ambulatory [facility] Start: 04-11-2024 End: 04-11-2024 ambulatory HARRISON [facility] Start: 04-10-2024 End: 04-10-2024 Documentation procedure Shanita Maki [facility] Medical Oncology Start: 04-10-2024 End: 04-10-2024 ambulatory Pfo Infusion Bed 1 Kristine Rowland [facility] Oncology Comment on above: 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) (Primary Dx); 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) Start: 04-09-2024 End: 04-09-2024 ambulatory Pfo Infusion Chair 6 Kristine Maki [facility] Oncology Comment on above: Squamous cell carcin nancy of right lung (CMS-HCC) (Primary Dx); 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) Start: 03-28-2024 End: 03-28-2024 Documentation procedure Tess bajwa [facility] - Radiation Oncology Start: 03-27-2024 End: 03-27-2024 Social Work Stephany NGUYENW Kristine Rowland [facility] Medical Oncology Comment on above: 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) (Primary Dx) Start: 03-26-2024 End: 03-26-2024 ambulatory Pfo Infusion Chair 6 Kristine Maki [facility] Medical Oncology Comment on above: Squamous cell carcin nancy of right lung (CMS-HCC) (Primary Dx); 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) Start: 03-23-2024 End: 03-23-2024 Refill Connor Gonzalez MD Work Phone: Kristine Maki [facility] - Medical Oncology Start: 03-21-2024 End: 03-21-2024 Documentation procedure Maximilian Nolasco MD Work Phone: [facility] Oncology - Radiation Oncology Start: 03-14-2024 End: 03-14-2024 ambulatory [facility] Start: 03-12-2024 End: 03-12-2024 Documentation procedure Alicia Gutiérrez [facility] - Medical Oncology Start: 03-09-2024 End: 03-09-2024 Office outpatient visit 25 minutes Connor Gonzalez MD Work Phone: Kristine Maki [facility] Medical Oncology Comment on above: Metastatic non-small cell lung cancer ([facility]); 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 ([facility]-HCC); Squamous cell carcinoma of right lung ([facility]-HCC) Start: 03-09-2024 End: 03-09-2024 ambulatory CONNOR Braxton [facility] Start: 02-28-2024 End: 02-28-2024 Documentation procedure Tess Sanon RN [facility] Oncology - Radiation Oncology Start: 02-28-2024 End: 02-28-2024 Orders Only Not In System Ref Prov [facility] Oncology - Radiation Oncology Start: 02-28-2024 End: 02-28-2024 ambulatory [facility] Start: 02-27-2024 End: 02-27-2024 ambulatory Pfo Infusion Chair 6 Kristine Maki [facility] - Medical Oncology Comment on above: Squamous cell carcin nancy of right lung ([facility]-HCC) (Primary Dx); 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 ([facility]-HCC) Start: 02-24-2024 End: 02-24-2024 ambulatory [facility] Start: 02-23-2024 End: 02-24-2024 [facility] Start: 02-21-2024 End: 02-21-2024 Orders Only Not In System Ref Prov [facility] Oncology - Radiation Oncology Start: 02-21-2024 End: 02-21-2024 ambulatory [facility] Start: 02-20-2024 End: 02-20-2024 ambulatory Pfo Infusion Chair 1 Kristine Maki [facility] - Medical Oncology Comment on above: 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) (Primary Dx); Squamous cell carcinoma of right lung ([facility]-HCC) Start: 02-17-2024 End: 02-17-2024 ambulatory [facility] Start: 02-16-2024 End: 02-16-2024 [facility] Start: 02-14-2024 End: 02-14-2024 [facility] Start: 02-13-2024 End: 02-13-2024 [facility] Start: 02-10-2024 End: 02-10-2024 [facility] Start: 02-09-2024 End: 02-09-2024 [facility] Start: 02-08-2024 End: 02-08-2024 [facility] Start: 02-07-2024 End: 02-07-2024 [facility] Start: 02-07-2024 End: 02-07-2024 ambulatory [facility] Start: 02-06-2024 End: 02-06-2024 [facility] Start: 02-02-2024 End: 02-02-2024 Orders Only Anne Eric MD Work Phone: [facility] Oncology - Radiation Oncology Comment on above: 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) (Primary Dx) Start: 01-31-2024 End: 01-31-2024 [facility] Start: 01-30-2024 End: 01-30-2024 ambulatory ANNE ERIC [facility] Start: 01-26-2024 End: 01-26-2024 ambulatory NO PCP NO PCP [facility] Start: 01-26-2024 End: 01-26-2024 Documentation procedure Shanita Maki [facility] Medical Oncology Comment on above: Metastatic non-small cell lung cancer (CMS-HCC) (Primary Dx) Start: 01-26-2024 End: 01-26-2024 Office outpatient visit 40 minutes Connor Gonzalez MD Work Phone: Kristine Maki [facility] Medical Oncology Comment on above: Squamous cell carcin nancy of right lung (CMS-HCC) (Primary Dx); 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) Start: 01-26-2024 End: 01-26-2024 ambulatory 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) (Primary Dx); 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) Start: 01-09-2024 End: 01-09-2024 ambulatory Pfo Infusion Chair 1 Kristine ta [facility] Medical Oncology Comment on above: Squamous cell carcin nancy of right lung (CMS-HCC) (Primary Dx); 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) Start: 12-30-2023 End: 12-30-2023 Office outpatient visit 40 minutes Connor Gonzalez MD Work Phone: Kristine Maki [facility] Medical Oncology Comment on above: Squamous cell carcin nancy of right lung (CMS-HCC) (Primary Dx); 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) Start: 12-30-2023 End: 12-30-2023 Orders Only Osiris Maki [facility] Medical Oncology Comment on above: Metastatic non-small cell lung cancer (CMS-HCC) (Primary Dx); 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 (CMS-HCC); 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); 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) Start: 12-27-2023 End: 12-27-2023 Orders Only Roseline Mejía [facility] Work Phone: Kristine Maki [facility] Oncology Comment on above: 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) (Primary Dx); 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) Start: 12-26-2023 End: 12-26-2023 ambulatory Pfo Infusion Chair 1 Kristine Maki [facility] Medical Oncology Comment on above: Squamous cell carcin nancy of right lung (CMS-HCC) (Primary Dx); 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) Start: 12-23-2023 End: 12-23-2023 ambulatory CONNOR GONZALEZ [facility] Start: 12-21-2023 End: 12-21-2023 ambulatory [facility] Start: 12-19-2023 End: 12-19-2023 ambulatory Pfo Infusion Chair 1 Kristine Maki [facility] Medical Oncology Comment on above: Squamous cell carcin nancy of right lung (CMS-HCC) (Primary Dx); 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) Start: 12-09-2023 ambulatory [facility] Start: 12-09-2023 End: 12-09-2023 ambulatory [facility] Start: 12-06-2023 End: 12-06-2023 ambulatory Pfo Infusion Chair 4 Kristine Maki [facility] - Medical Oncology Comment on above: 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) (Primary Dx); 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) Start: 12-05-2023 End: 12-05-2023 ambulatory [facility] Start: 12-05-2023 End: 12-05-2023 ambulatory Pfo Infusion Chair 1 Kristine Maki [facility] - Medical Oncology Comment on above: 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) (Primary Dx); 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) Start: 11-30-2023 End: 11-30-2023 [facility] Start: 11-24-2023 End: 11-24-2023 ambulatory KATIE YESSY [facility] Start: 11-22-2023 End: 11-22-2023 ambulatory Pfo Infusion Chair 4 Kristine Maki [facility] - Medical Oncology Comment on above: 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) (Primary Dx); 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) Start: 11-21-2023 End: 11-21-2023 ambulatory Pfo Infusion Chair 1 Kristine Maki [facility] - Medical Oncology Comment on above: Squamous cell carcin nancy of right lung (CMS-HCC) (Primary Dx); 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) Start: 11-17-2023 End: 11-17-2023 Office outpatient visit 40 minutes Connor Gonzalez MD Work Phone: Kristine Maki [facility] - Medical Oncology Comment on above: Squamous cell carcin nancy of right lung (CMS-HCC) (Primary Dx); 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 ([facility]-H[facility]) Start: 11-17-2023 End: 11-17-2023 ambulatory CONNOR GONZALEZ [facility] Start: 11-17-2023 End: 11-17-2023 Documentation procedure Osiris Gutiérrez [facility] On[facility] Start: 11-15-2023 End: 11-15-2023 ambulatory JUAN LUIS SEAY [facility] Start: 11-14-2023 End: 11-14-2023 ambulatory IZZY LA [facility] Start: 11-13-2023 End: 11-14-2023 Refill Connor Gonzalez MD Work Phone: Kristine Maki [facility] Medical Oncology Comment on above: Leg edema, right Start: 11-10-2023 Evaluation and manag ement of inpatient [facility] Start: 11-09-2023 Evaluation and manag ement of inpatient [facility] Start: 11-06-2023 Evaluation and manag ement of inpatient [facility] Start: 11-05-2023 Evaluation and manag ement of inpatient [facility] Start: 11-04-2023 End: 11-11-2023 Evaluation and management of inpatient [facility] Start: 11-03-2023 End: 11-03-2023 Documentation procedure Osiris Gutiérrez [facility] Medical Oncology Start: 11-02-2023 End: 11-02-2023 Office outpatient visit 25 minutes Heladio Davis MD Work Phone: [facility] Comment on above: Persistent atrial fi brillation (Multi) (Primary Dx); Paroxysmal atrial fibrillation (Multi); BMI 37.0-37.9, adult; Former smoker; High risk medication use; Obstructive sleep apnea syndrome; Malignant neoplasm of lung, unspecified laterality, unspecified part of lung (Multi); Primary hypertension; Shortness of breath Start: 11-02-2023 End: 11-02-2023 ambulatory [facility] Ambulatory Start: 11-01-2023 End: 11[facility]01[facility]2023 [facility] Start: 10-31-2023 End: 10-31-2023 ambulatory Pfo Infusion Chair 1 Kristine Maki [facility] Medical Oncology Comment on above: Squamous cell carcin nancy of right lung (CMS-HCC) (Primary Dx); 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) Start: 10-26-2023 End: 10-26-2023 ambulatory Pfo Infusion Chair 2 Kristine Maki [facility] Oncology Comment on above: 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) (Primary Dx); 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) Start: 10-25-2023 End: 10-25-2023 ambulatory Pfo Infusion Chair 1 Kristine Maki [facility] Oncology Comment on above: Squamous cell carcin nancy of right lung (CMS-HCC) (Primary Dx); 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) Start: 10-18-2023 End: 10-18-2023 ambulatory Pfo Infusion Chair 6 Kristine Maki [facility] Oncology Comment on above: 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) (Primary Dx); 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) Start: 10-17-2023 End: 10-17-2023 ambulatory Pfo Infusion Chair 1 Kristine Maki [facility] Medical Oncology Comment on above: 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) (Primary Dx); 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) Start: 10-11-2023 End: 10-11-2023 ambulatory Pfo Infusion Chair 6 Kristine Maki [facility] Medical Oncology Comment on above: 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) (Primary Dx); 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) Start: 10-10-2023 End: 10-10-2023 ambulatory Pfo Infusion Chair 1 Kristine Maki [facility] Medical Oncology Comment on above: 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) (Primary Dx); 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) Start: 10-04-2023 End: 10-04-2023 Orders Only Roseline Alfonzo [facility] Work Phone: Kristine Maki [facility] Medical Oncology Start: 10-03-2023 End: 10-03-2023 ambulatory Pfo Infusion Chair 1 Kristine Maki [facility] Medical Oncology Comment on above: Squamous cell carcin nancy of right lung (CMS-HCC) (Primary Dx); 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) Start: 09-30-2023 End: 09-30-2023 Orders Only Connor Gonzalez MD Work Phone: Kristine Dumont [facility] Medical Oncology Start: 09-27-2023 End: 09-27-2023 Orders Only Osiris Maki [facility] Oncology Comment on above: 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 ([facility]-HCC) (Primary Dx) Start: 09-23-2023 End: 09-23-2023 Documentation procedure Osiris Gutiérrez [facility] Medical Oncology Start: 09-22-2023 End: 09-22-2023 Orders Only Connor Gonzalez MD Work Phone: Kristine Maki [facility] Medical Oncology Start: 09-21-2023 End: 09-21-2023 ambulatory CONNOR GONZALEZ [facility] Start: 09-20-2023 End: 09-20-2023 ambulatory CONNOR GONZALEZ [facility] Comment on above: Squamous cell carcin nancy of right lung (CMS-HCC) (Primary Dx); 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 ([facility]-HCC) Start: 09-16-2023 End: 09-16-2023 Office outpatient visit 40 minutes Connor Gonzalez MD Work Phone: Kristine Maki [facility] Medical Oncology Comment on above: Leg edema, right (Pr imary Dx); 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); 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) Start: 09-16-2023 End: 09-16-2023 Orders Only Alicia Rowland [facility] Oncology Comment on above: 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) (Primary Dx); 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); Metastatic non-small cell lung cancer (CMS-HCC) Start: 09-16-2023 End: 09-22-2023 ambulatory ADDISON PÉREZ [facility] Start: 09-14-2023 End: 09-14-2023 ambulatory CONNOR GONZALEZ [facility] Start: 09-13-2023 End: 09-13-2023 ambulatory Pfo Infusion Chair 5 Kristine Maki [facility] Medical Oncology Comment on above: Leg edema, right (Pr imary Dx) Start: 09-12-2023 End: 09-12-2023 ambulatory Pfo Infusion Chair 1 Kristine Maki [facility] Oncology Comment on above: Squamous cell carcin nancy of right lung (CMS-HCC) (Primary Dx); 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 ([facility]-HCC) Start: 09-06-2023 End: 09-06-2023 Social Work Stephany Rowland [facility] Oncology Comment on above: 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 ([facility]-HCC) (Primary Dx); 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) Start: 09-05-2023 End: 09-05-2023 Office outpatient new 45 minutes Addison Cox MD Work Phone: [facility] Pulmonary/Sleep Medicine Comment on above: SOB (shortness of br eath) (Primary Dx); 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); 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); Obstructive sleep apnea Start: 09-05-2023 End: 09-05-2023 ambulatory [facility] Start: 09-05-2023 End: 09-05-2023 ambulatory Pfo Infusion Chair 1 Kristine Maki [facility] Medical Oncology Comment on above: 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) (Primary Dx); 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) Start: 08-30-2023 End: 08-30-2023 ambulatory Pfo Infusion Chair 4 Kristine Maki [facility] Oncology Comment on above: 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) (Primary Dx); 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) Start: 08-29-2023 End: 08-29-2023 ambulatory Pfo Infusion Chair 1 Kristine Maki [facility] Oncology Comment on above: Squamous cell carcin nancy of right lung (CMS-HCC) (Primary Dx); 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); Aching headache Start: 08-23-2023 End: 08-23-2023 ambulatory Pfo Infusion Chair 2 Kristine Maki [facility] Oncology Comment on above: 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) (Primary Dx); 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) Start: 08-22-2023 End: 08-22-2023 ambulatory Pfo Infusion Chair 5 Kristine Maki [facility] Medical Oncology Comment on above: Squamous cell carcin nancy of right lung (CMS-HCC) (Primary Dx); 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); Aching headache Start: 08-16-2023 End: 08-16-2023 Social [facility] Comment on above: 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) (Primary Dx); 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) Start: 08-15-2023 End: 08-15-2023 ambulatory [facility]fo Infusion Chair [facility] Comment on above: 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) (Primary Dx) Squamous cell carcin nancy of right lung (CMS-HCC) (Primary Dx); 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); Aching headache Start: 08-10-2023 End: 08-10-2023 Orders Only Osiris Rowland [facility] Medical Oncology Comment on above: 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) (Primary Dx) Start: 08-05-2023 End: 08-05-2023 Office outpatient visit 40 minutes Connor Gonzalez MD Work Phone: Kristine L [facility] Oncology Comment on above: Squamous cell carcin nancy of right lung (CMS-HCC) (Primary Dx); 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); Aching headache Start: 08-05-2023 End: 08-05-2023 Orders [facility] Comment on above: 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) (Primary Dx); 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); Metastatic non-small cell lung cancer (CMS-HCC) Squamous cell carcin nancy of right lung (CMS-HCC) (Primary Dx); 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) Start: 07-20-2023 End: 07-20-2023 Office outpatient visit 25 minutes Fermin Wall MD Work Phone: [facility] Comment on above: Paroxysmal atrial fi brillation (Multi); High risk medication use; Former smoker Start: 07-20-2023 End: 07-20-2023 ambulatory FERMIN WALL [facility] Ambulatory Start: 07-19-2023 End: 07-19-2023 Orders Only Shanita Maki [facility] - Medical Oncology Comment on above: Squamous cell carcin nancy of right lung (CMS-HCC) (Primary Dx); 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) Start: 07-05-2023 End: 07-05-2023 ambulatory Fermin Wall Facility:[facility] Start: 06-16-2023 End: 06-16-2023 Chart abstracting Linda Maki [facility] - Medical Oncology Comment on above: Metastatic non-small cell lung cancer (CMS-HCC) (Primary Dx) Start: 06-16-2023 End: 06-16-2023 Office outpatient new 60 minutes Connor Gonzalez MD Work Phone: Kristine Maki [facility] - Medical Oncology Comment on above: Squamous cell carcin nancy of right lung (CMS-HCC) (Primary Dx); 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 ([facility]-HCC) Start: 05-31-2023 End: 05-31-2023 ambulatory [facility] Start: 05-17-2023 End: 05-17-2023 [facility] Start: 05-17-2023 End: 05-17-2023 Office outpatient visit 25 minutes Fermin Wall MD Work Phone: [facility] Comment on above: Preop cardiovascular exam; Diastolic congestive heart failure, unspecified HF chronicity (CMS/HCC); Primary hypertension; Paroxysmal atrial fibrillation (CMS/HCC); BMI 39.0-39.9,adult; High risk medication use; Former smoker Start: 05-17-2023 End: 11-02-2023 Patient encounter status Fermin Wall MD Work Phone: [facility] Start: 05-17-2023 End: 05-17-2023 Encounter for preprocedural cardiovascular examination [facility] Start: 01-07-2023 End: 01-07-2023 Subsequent hospital visit by physician Nery Hoff Echo/Vasc Room 2 [facility] Comment on above: Diastolic congestive heart failure, unspecified HF chronicity (CMS/HCC); Primary hypertension; Paroxysmal atrial fibrillation (CMS/HCC) Start: 01-07-2023 End: 01-07-2023 ambulatory [facility] Start: 12-01-2022 End: 12-01-2022 Office outpatient visit 15 minutes Fermin Wall MD Work Phone: [facility] Comment on above: Diastolic congestive heart failure, unspecified HF chronicity (CMS/HCC) (Primary Dx); Primary hypertension; Paroxysmal atrial fibrillation (CMS/HCC); Malignant neoplasm of hilus of lung, unspecified laterality (CMS/HCC) Start: 12-01-2022 End: 12-01-2022 ambulatory [facility] Ambulatory Start: 08-03-2022 Office outpatient vi sit 25 minutes Izzy Hughes Work Phone: [facility] 250 DO Work Phone: Start: 06-11-2022 End: 06-11-2022 ambulatory KATIE BAEZ Facility:[facility] Start: 06-11-2022 End: 06-11-2022 Patient encounter procedure Katie Baez SHRADDHA.BLANK DRILLER Work Phone: [facility] [place] Comment on above: Seborrheic keratosis (Primary Dx); Lentigines; Multiple benign nevi; Scott angioma; Family history of skin cancer; Dermatofibroma; Telangiectasia of skin Start: 05-29-2022 End: 05-29-2022 ambulatory JAY LINDER . Facility: Start: 03-03-2022 Office outpatient vi sit 25 minutes Izzy Hughes Work Phone: [facility]ardo 250 DO Work Phone: Start: 03-03-2022 ambulatory Ms. Izzy Vela Ellen Facility: Start: 11-12-2021 End: 11-12-2021 Patient encounter procedure PHYSICIAN NO [facility] Start: 11-04-2021 End: 11-04-2021 Patient encounter procedure PHYSICIAN NO [facility] Start: 10-14-2021 End: 10-14-2021 ambulatory Danuta Centeno Other [facility] [employer] Other Start: 10-14-2021 [facility] visit new patient Danuta Zurita y [facility] Start: 10-12-2021 End: 10-12-2021 ambulatory IZZY HUGHES Facility:[facility] Start: 05-21-2021 ambulatory Ms. Izzy Hughes Facility: Start: 05-21-2021 Office outpatient vi sit 15 minutes Izzy Hughes Work Phone: -[facility] 250 DO Work Phone: Start: 05-19-2021 End: 05-19-2021 ambulatory Johnnie Bruce Other [facility] [employer] Other Start: 05-19-2021 Office outpatient vi sit 25 minutes Johnnie Bruce [facility] Procedures Date Procedure Procedure Detail Performing Clinician Start: 08-20-2024 Comprehensive metabo lic panel Connor Gonzalez MD Work Phone: Start: 08-06-2024 Comprehensive metabo lic panel Connor Gonzalez MD Work Phone: Start: 07-23-2024 Comprehensive metabo lic panel Connor Gonzalez MD Work Phone: Start: 07-09-2024 Comprehensive metabo lic panel Connor Gonzalez MD Work Phone: Start: 06-29-2024 Follow-up visit Follow-up KATIE TORRES Start: 06-25-2024 Comprehensive metabo lic panel Connor Gonzalez MD Work Phone: Start: 06-14-2024 Adult depression screening assessment Katie Torres DO Work Phone: Start: 04-23-2024 Comprehensive metabo lic panel Connor Gonzalez MD Work Phone: Start: 04-09-2024 Comprehensive metabo lic panel Connor Gonzalez MD Work Phone: Start: 02-28-2024 DAILY RADIATION TREATMENT Not In System Ref Prov Start: 02-21-2024 DAILY RADIATION TREATMENT Not In System Ref Prov Start: 01-09-2024 Comprehensive metabo lic panel Connor Gonzalez MD Work Phone: Start: 12-26-2023 Comprehensive metabo lic panel Connor Gonzalez MD Work Phone: Start: 12-19-2023 Comprehensive metabo lic panel Connor Gonzalez MD Work Phone: Start: 12-05-2023 Comprehensive metabo lic panel Connor Gonzalez MD Work Phone: Start: 11-21-2023 Comprehensive metabo lic panel Connor Gonzalez MD Work Phone: Start: 10-31-2023 Blood count complete auto&auto difrntl wbc Connor Gonzalez MD Work Phone: Start: 10-25-2023 Comprehensive metabo lic panel Connor Gonzalez MD Work Phone: Start: 10-17-2023 Comprehensive metabo lic panel Connor Gonzalez MD Work Phone: Start: 10-10-2023 Comprehensive metabo lic panel Connor Gonzalez MD Work Phone: Start: 10-03-2023 Comprehensive metabo lic panel Connor Gonzalez MD Work Phone: Start: 09-16-2023 Follow-up visit Follow-up CONNOR GONZALEZ Start: 09-12-2023 Comprehensive metabo lic panel Connor Gonzalez MD Work Phone: Start: 09-06-2023 Chemotherapy Chemotherapy MOHAMMAD R ASHID Start: 09-05-2023 Comprehensive metabo lic panel Connor Gonzalez MD Work Phone: Start: 08-29-2023 Comprehensive metabo lic panel Connor Gonzalez MD Work Phone: Start: 08-22-2023 Comprehensive metabo lic panel Connor Gonzalez MD Work Phone: Start: 08-15-2023 Comprehensive metabo lic panel Connor Gonzalez MD Work Phone: Start: 08-05-2023 Comprehensive metabo lic panel Connor Gonzalez MD Work Phone: Start: 07-20-2023 Ecg routine ecg w/le ast 12 lds w/i&r Fermin Wall MD Work Phone: Start: 05-23-2023 MULTIPLE LABS Not In Sy stem Ref Prov Start: 05-17-2023 ECG 12-LEAD FERMIN HERCULES Start: 05-17-2023 FOLLOW UP IN CARDIOLOGY FERMIN WALL Start: 05-17-2023 Ecg routine ecg w/le ast 12 lds w/i&r Fermin Wall MD Work Phone: Start: 05-13-2023 Level i surg patholo gy gross examination only Not In System Ref Prov Start: 05-02-2023 Thyrotropin [Units/volume] in Serum or Plasma Fermin Wall MD Work Phone: Start: 03-28-2023 Ct thorax w/o & w/contrast material Not In System Ref Prov Start: 02-23-[address] attenuation skull base mid-thigh Not In System Ref Prov Start: 01-07-2023 TRANSTHORACIC ECHO ( TTE) COMPLETE [...] Td Vaccines (3 - Td or Tdap) [facility] Start: 10-13-2031 DTaP/Tdap/Td Vaccines (3 - Td or Tdap) DTaP/Tdap/Td Vaccines (3 - Td or Tdap) [facility] Start: 01-18-2028 Zoster Vaccines (1 of 2) Zoster Vaccines (1 of 2) [facility] Start: 08-31-2025 Adult BMI Screening Adult BMI Screening [facility] Start: 08-31-2025 Tobacco Screening [facility] Start: 08-07-2025 Adult BMI Screening Adult [facility]ening [facility] Start: 08-07-2025 Tobacco Screening Tobacco Screening [facility] Start: 07-24-2025 Adult BMI Screening Adult BMI Screening [facility] Start: 07-24-2025 Tobacco Screening Tobacco Screening [facility] Start: 07-20-2025 Adult BMI Screening Adult BMI Screening [facility] Start: 07-20-2025 Tobacco Screening Tobacco Screening [facility] Start: 06-29-2025 Adult BMI Screening Adult BMI Screening [facility] Start: 06-29-2025 Tobacco Screening Tobacco Screening [facility] Start: 06-26-2025 Adult BMI Screening Adult BMI Screening [facility] Start: 06-26-2025 Tobacco Screening Tobacco Screening [facility] Start: 06-14-2025 Adult BMI Screening Adult BMI Screening [facility] Start: 06-14-2025 Depression Screening Depression Screening [facility] Start: 06-14-2025 Tobacco Screening Tobacco Screening [facility] Start: 06-01-2025 Adult BMI Screening Adult BMI Screening [facility] Start: 04-26-2025 Adult BMI Screening Adult BMI Screening [facility] Start: 04-26-2025 Tobacco Screening Tobacco Screening [facility] Start: 04-10-2025 Adult BMI Screening Adult [facility] Screening [facility] Start: 04-10-2025 Tobacco Screening Tobacco Screening [facility] Start: 04-01-2025 Lipid panel Lipid Panel [facility] Start: 04-01-2025 LIPID SCREEN LIPID SCREEN [facility] Start: 03-27-2025 Adult BMI Screening Adult BMI Screening [facility] Start: 03-27-2025 Tobacco Screening Tobacco Screening [facility] Start: 03-09-2025 Adult BMI Screening Adult BMI Screening [facility] Start: 03-09-2025 Tobacco Screening Tobacco Screening [facility] Start: 02-20-2025 Adult BMI Screening Adult BMI Screening [facility] Start: 02-09-2025 Adult BMI Screening Adult BMI Screening [facility] Start: 01-30-2025 Adult BMI Screening Adult BMI Screening [facility] Start: 01-25-2025 Adult BMI Screening Adult BMI Screening [facility] Start: 01-25-2025 Tobacco Screening Tobacco Screening [facility] Start: 01-10-2025 Adult BMI Screening Adult BMI Screening [facility] Start: 12-29-2024 Adult BMI Screening Adult BMI Screening [facility] Start: 12-26-2024 Adult BMI Screening Adult BMI Screening [facility] Start: 12-05-2024 Adult BMI Screening Adult BMI Screening [facility] Start: 11-21-2024 Adult BMI Screening Adult BMI Screening [facility] Start: 11-21-2024 Tobacco Screening Tobacco Screening [facility] Start: 11-16-2024 Adult BMI Screening Adult BMI Screening [facility] Start: 11-16-2024 Tobacco Screening Tobacco Screening [facility] Start: 10-25-2024 Adult BMI Screening Adult BMI Screening [facility] Start: 10-25-2024 Tobacco Screening Tobacco Screening [facility] Start: 10-22-2024 Influenza vaccination Influenza Vaccine [facility] Start: 10-17-2024 Adult BMI Screening Adult BMI Screening [facility] Start: 10-17-2024 Tobacco Screening Tobacco Screening [facility] Start: 10-12-2024 End: 10-12-2024 Patient encounter procedure 10/12/2024 12:45 PM EDT Office Visit [facility] On[facility] [address] [place] [phone] Connor Gonzalez MD [facility] [address] [place] [address] [facility] Start: 10-10-2024 Adult BMI Screening Adult BMI Screening [facility] Start: 10-10-2024 Tobacco Screening Tobacco Screening [facility] Start: 10-08-2024 End: 10-08-2024 Patient encounter procedure 10/08/2024 1:45 PM EDT Office Visit [facility] [address] [address] Addison Cox MD [address] [facility] [place] [address] [facility] Start: 10-03-2024 Adult BMI Screening Adult BMI Screening [facility] Start: 09-15-2024 Adult BMI Screening Adult BMI Screening [facility] Start: 09-15-2024 Tobacco Screening Tobacco Screening [facility] Start: 09-12-2024 Adult BMI Screening Adult BMI Screening [facility] Start: 09-05-2024 Adult BMI Screening Adult BMI Screening [facility] Start: 09-04-2024 Adult BMI Screening Adult BMI Screening [facility] Start: 09-04-2024 Tobacco Screening Tobacco Screening [facility] Start: 09-04-2024 End: 09-04-2024 ambulatory 09/04/2024 1:00 PM EDT Infusion [facility] [address] [place] [phone] Kristine [facility] Start: 09-03-2024 End: 09-03-2024 ambulatory 09/03/2024 12:00 PM EDT Infusion Kristine [facility] [address] [place] [phone] Kristine Dumont [facility] - [facility] Oncology Start: 08-31-2024 End: 08-31-2024 Patient encounter procedure 08/31/2024 11:15 AM EDT Office Visit [facility] [address] [place] [phone] Connor Gonzalez MD [address] [facility] [address] [place] [address] [facility] Start: 08-28-2024 Adult BMI Screening Adult BMI Screening [facility] Start: 08-28-2024 End: 08-21-2025 CT Abdomen and Pelvis W contrast IV CT abdomen and pelvis with contrast Imaging Routine 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, unspecified laterality (CMS-HCC) Metastatic non-small cell lung cancer (CMS-HCC) Shortness of breath Expected: 08/28/2024, Expires: 08/21/2025 [facility] Comment on above: Expected: 08/28/2024, Expires: Start: 08-28-2024 End: 08-21-2025 CT Chest limited W contrast IV CT chest with contrast Imaging Routine 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, unspecified laterality (CMS-HCC) Metastatic non-small cell lung cancer (CMS-HCC) Shortness of breath Expected: 08/28/2024, Expires: 08/21/2025 [employer] Work Phone: Comment on above: Expected: 08/28/2024, Expires: Start: 08-22-2024 Adult BMI Screening Adult BMI Screening [facility] Start: 08-22-2024 Tobacco Screening Tobacco Screening [facility] Start: 08-21-2024 Adult BMI Screening Adult BMI Screening [facility] Start: 08-21-2024 Tobacco Screening Tobacco Screening [facility] Start: 08-21-2024 End: 08-21-2024 ambulatory 08/21/2024 11:30 AM EDT Infusion [facility] [address] [place] [phone] [facility] Start: 08-20-2024 End: 08-20-2024 ambulatory 08/20/2024 12:00 PM EDT Infusion [facility] [address] [place] [phone] Krist[facility] L [facility] Start: 08-15-2024 Adult BMI Screening Adult BMI Screening [facility] Start: 08-15-2024 Tobacco Screening Tobacco Screening [facility] Start: 08-14-2024 Adult BMI Screening Adult BMI Screening [facility] Start: 08-07-2024 Adult BMI Screening Adult BMI Screening [facility] Start: 08-07-2024 End: 08-07-2024 ambulatory 08/07/2024 1:00 PM EDT Infusion Kristine [facility] [address] [place] [address] [facility] Start: 08-06-2024 End: 08-06-2024 ambulatory 08/06/2024 12:00 PM EDT Infusion [facility] [address] [place] [phone] [facility] Start: 08-04-2024 Adult BMI Screening Adult BMI Screening [facility] Start: 08-04-2024 Tobacco Screening Tobacco Screening [facility] Start: 08-01-2024 End: 08-01-2024 Patient encounter procedure 08/01/2024 11:00 AM EDT Office Visit [facility] [address] [place] [address] [place] [phone] Katie Torres, DO [address] [place] [address], [address], [address] [place], [place] [phone] [facility] Start: 07-24-2024 End: 07-24-2024 ambulatory 07/24/2024 11:30 AM EDT Infusion [facility] [address] [place] [phone] [facility] Start: 07-23-2024 End: 07-23-2024 ambulatory 07/23/2024 12:00 PM EDT Infusion [facility] [address] [place] [phone] [facility] Start: 07-20-2024 End: 07-20-2024 Patient encounter procedure 07/20/2024 2:15 PM EDT Office Visit [facility] [address] [place] [phone] Connor Gonzalez MD [address] [place] [address] [address] [place], [place] [phone] [facility] Start: 07-10-2024 End: 07-10-2024 ambulatory 07/10/2024 1:30 PM EDT Infusion [facility] [address] [place] [phone] [facility] Start: 07-09-2024 End: 07-09-2024 ambulatory 07/09/2024 2:00 PM EDT Infusion [facility] [address] [place] [phone] [facility] Start: 06-29-2024 End: 06-29-2024 Patient encounter procedure 06/29/2024 11:00 AM EDT Office Visit [facility] [address] [place] [address] [place] [phone] Katie Torres, [address] [place] [address], [address], [place] [address] [facility] Start: 06-26-2024 End: 06-26-2024 ambulatory 06/26/2024 11:30 AM EDT Infusion [facility] [address] [place] [phone] [facility] Start: 06-25-2024 End: 06-25-2024 ambulatory 06/25/2024 3:30 PM EDT Infusion Kristine Tim [facility] [address] [place] [phone] Kristine L [facility] Start: 06-25-2024 End: 03-28-2025 CT Abdomen and Pelvis W contrast IV CT abdomen and pelvis with contrast Imaging Routine Metastatic non-small cell lung cancer (CMS-HCC) Expected: 06/25/2024 (Approximate), Expires: 03/28/2025 [employer] Work Phone: Comment on above: Expected: 06/25/2024 (Approximate), Expi res: 03/28/2025 Start: 06-25-2024 End: 03-28-2025 CT Chest limited W contrast IV CT chest with contrast Imaging Routine Metastatic non-small cell lung cancer (CMS-HCC) Expected: 06/25/2024 (Approximate), Expires: 03/28/2025 [employer] Comment on above: Expected: 06/25/2024 (Approximate), Expi res: 03/28/2025 Start: 06-15-2024 Adult BMI Screening Adult BMI Screening [facility] Start: 06-14-2024 End: 06-14-2024 Patient encounter procedure 06/14/2024 10:30 AM EDT Office Visit [facility] [address] [place] [address] [place] [address] Katei Torres, [address] [facility], [address], [place] [address] [facility] Start: 06-07-2024 End: 06-07-2024 Patient encounter procedure 06/07/2024 12:45 PM EDT Office Visit [facility] [place] [address] Connor Gonzalez MD [address] [facility] [address] [place] [address] Kirstine [facility] Start: 06-05-2024 End: 06-05-2024 Patient encounter procedure 06/05/2024 2:00 PM EDT Office Visit [facility] [address] [place] [phone] Connor Gonzalez MD [address] [facility] [address] [place], [place] [phone] Krist[facility] Start: 06-01-2024 End: 06-01-2024 Patient encounter procedure 06/01/2024 11:00 AM EDT Appointment [facility] [address] [place] [phone] [facility] Start: 05-22-2024 End: 06-03-2025 PT Skull base to mid-thigh PET CT skull to thigh Imaging Routine 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 lung ([facility]) Expected: 05/22/2024, Expires: 06/03/2025 [facility] Work Phone: Comment on above: Expected: 05/22/2024, Expires: Start: 05-08-2024 End: 05-08-2024 ambulatory 05/08/2024 12:30 PM EDT Infusion [facility] [address] [place] [phone] Kristine Tim [facility] Start: 05-07-2024 End: 05-07-2024 ambulatory 05/07/2024 12:00 PM EDT Infusion Krist[facility] L [facility] [address] [place] [phone] Kristine Dumont [facility] Start: 05-01-2024 Thyroid stimulating hormone measurement TSH Level [facility] Start: 04-26-2024 End: 04-26-2024 Patient encounter procedure 04/26/2024 2:00 PM EST Office Visit [facility] [address] [place] [address] [place] [address] [place] [address] [address] [place] [address] Kristine [facility] Start: 04-24-2024 End: 04-24-2024 ambulatory 04/24/2024 12:30 PM EST Infusion Kristine [facility] [address] [place] [phone] Kristine [facility] Start: 04-23-2024 End: 04-23-2024 ambulatory 04/23/2024 12:00 PM EST Infusion Kristine [facility] [address] [place] [phone] Krist[facility] Start: 04-10-2024 End: 04-10-2024 ambulatory 04/10/2024 12:00 PM EST Infusion Kristine [facility] [address] [place] [phone] Kristine [facility] Start: 04-09-2024 End: 04-09-2024 ambulatory 04/09/2024 12:00 PM EST Infusion [facility] [address] [place] [phone] [facility] Start: 03-30-2024 End: 03-30-2024 Patient encounter procedure 03/30/2024 10:00 AM EST Appointment [facility] Oncology - Radiation Oncology [address] [place] [phone] [facility] Start: 03-27-2024 End: 03-27-2024 Patient [facility] Start: 03-27-2024 End: 03-27-2024 ambulatory 03/27/2024 12:00 PM EST Infusion [facility] [address] [place] [address] [facility] Start: 03-27-2024 Subsequent hospital visit by physician 03/27/2024 11:43 AM EST Hospital Encounter [facility] Oncology - Radiation Oncology [address] [place] [address] Arrived [facility] Oncology - Radiation Oncology Comment on above: Arrived Start: 03-26-2024 End: 03-26-2024 ambulatory 03/26/2024 12:00 PM EST Infusion Kristine Maki [facility] Medical Oncology [address] [place] [phone] Kristine Maki [facility] Medical Oncology Start: 03-21-2024 End: 03-21-2024 Patient encounter procedure 03/21/2024 2:30 PM EST Office Visit [address] [place] [address] [place] [phone] Heladio Davis MD [address] [facility] [address], [place] [place] [address] [facility] Start: 03-09-2024 End: 03-09-2024 Patient encounter procedure 03/09/2024 2:30 PM EST Office Visit [facility] [address] [place] [phone] Connor Gonzalez MD [address] [place] [address] Kristine [facility] Start: 02-28-2024 End: 02-28-2024 [facility] Start: 02-27-2024 End: 02-27-2024 [facility] Start: 02-24-2024 End: 02-24-2024 Patient encounter procedure 02/24/2024 11:45 AM EST Appointment [facility] Oncology [address] [place] [phone] [facility] Oncology - Radiation Oncology Start: 02-23-2024 End: 02-23-2024 Patient encounter procedure 02/23/2024 11:45 AM EST Appointment [facility] Oncology - Radiation Oncology [address] [place] [phone] [facility] Oncology - Radiation Oncology Start: 02-21-2024 End: 02-21-2024 Patient encounter procedure [facility] Oncology - Radiation Oncology Start: 02-07-2024 End: 02-07-2024 ambulatory 02/07/2024 12:30 PM EST Infusion [facility] [address] [place] [phone] Kristine L [facility] Start: 02-06-2024 End: 02-06-2024 ambulatory 02/06/2024 12:30 PM EST Infusion Kristine [facility] [address] [place] [phone] Kristine L [facility] Start: 02-02-2024 End: 02-02-2024 Patient encounter procedure 02/02/2024 11:15 AM EST Appointment [facility] Oncology - Radiation Oncology [address] [place] [phone] [facility] Oncology - Radiation Oncology Start: 01-27-2024 End: 01-25-2025 Image Fusion Image Fusion Radiation Oncology Routine Metastatic non-small cell lung cancer (CMS-HCC) Expected: 01/27/2024 (Approximate), Expires: 01/25/2025 [facility] Comment on above: Expected: 01/27/2024 (Approximate), Expi res: 01/25/2025 Start: 01-27-2024 End: 01-25-[address] Simulation Specifics (for therapists) Initial CT Simulation Specifics (for therapists) Radiation Oncology Routine Metastatic non-small cell lung cancer (CMS-HCC) Expected: 01/27/2024 (Approximate), Expires: 01/25/2025 [employer] Work Phone: Comment on above: Expected: 01/27/2024 (Approximate), Expi res: 01/25/2025 Start: 01-27-2024 End: 01-27-2024 Patient encounter procedure [facility] Oncology - Radiation Oncology Start: 01-26-2024 End: 01-26-2024 Patient encounter procedure 01/26/2024 12:45 PM EST Office Visit Kristine [facility] [address] [place] [phone] Connor Gonzalez MD [facility] [address] [place], [place] [phone] Krist[facility] L [facility] Start: 01-24-2024 End: 01-24-2024 ambulatory 01/24/2024 12:30 PM EST Infusion Kristine [facility] [address] [place] [phone] Kristinejuvencio [facility] Start: 01-23-2024 End: 01-23-2024 ambulatory 01/23/2024 12:30 PM EST Infusion Kristine Dumont [facility] [address] [place] [phone] Kristine L [facility] Start: 2024 End: 2024 ambulatory 2024 12:30 PM EST Infusion Kristine [facility] [address] [place] [phone] Kristine L [facility] Start: 01-16-2024 End: 01-16-2024 ambulatory 01/16/2024 12:30 PM EST Infusion Kristinejuvencio [facility]aki [facility] [address] [place] [phone] Kristine L [facility] Start: 01-13-2024 End: 12-29-2024 PT Skull base to mid-thigh PET CT skull to thigh Imaging Routine 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 ([facility]-HCC) Expected: 01/13/2024, Expires: 12/29/2024 [employer] Work Phone: Comment on above: Expected: 01/13/2024, Expires: Start: 01-10-2024 End: 01-10-2024 ambulatory 01/10/2024 12:30 PM EST Infusion Kristine L [facility] [address] [place] [phone] Kristine [facility]aki [facility] Start: 01-09-2024 End: 01-09-2024 ambulatory 01/09/2024 12:30 PM EST Infusion Kristine L [facility] [address] [place] [phone] Kristine [facility] Start: 01-08-2024 [facility] Start: 01-03-2024 End: 01-03-2024 ambulatory 01/03/2024 12:30 PM EST Infusion Kristine Tim [facility] [address] [place] [phone] Kristine [facility] Start: 01-02-2024 End: 01-02-2024 ambulatory 01/02/2024 12:30 PM EST Infusion Kristine [facility] [address] [place] [phone] Kristine [facility] Start: 12-30-2023 End: 12-30-2023 Patient encounter procedure 12/30/2023 12:45 PM EST Office Visit Kristine [facility] [address] [place] [phone] Connor Gonzalez MD [address] [facility] [address] [place] [address] Kristine [facility] Start: 12-27-2023 End: 12-27-2023 ambulatory 12/27/2023 12:30 PM EST Infusion Kristine [facility] [address] [place] [phone] Kristine [facility] Start: 12-26-2023 End: 12-26-2023 ambulatory 12/26/2023 12:30 PM EST Infusion Kristine [facility] [address] [place] [phone] Kristine [facility] Start: 12-21-2023 End: 12-21-2023 Patient encounter procedure 12/21/2023 3:30 PM EDT Appointment [facility] - CT Imaging [address] [place] [address] Connor Gonzalez MD [facility] [address] [place] [address] [facility] - CT Imaging Start: 12-20-2023 End: 12-20-2023 ambulatory 12/20/2023 12:30 PM EDT Infusion Kristine [facility] [address] [place] [phone] Kristine [facility] Start: 12-19-2023 End: 11-16-2024 CT Abdomen and Pelvis W contrast IV CT abdomen and pelvis with contrast Imaging Routine 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) Metastatic non-small cell lung cancer (CMS-HCC) Expected: 12/19/2023, Expires: 11/16/2024 [facility] Comment on above: Expected: 12/19/2023, Expires: Start: 12-19-2023 End: 11-16-2024 CT Chest limited W contrast IV CT chest with contrast Imaging Routine 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 lung ([facility]-H[facility]) Metastatic non-small cell lung cancer ([facility]-HCC) Expected: 12/19/2023, Expires: 11/16/2024 [facility] Work Phone: Comment on above: Expected: 12/19/2023, Expires: Start: 12-19-2023 End: 12-19-2023 ambulatory 12/19/2023 12:30 PM EDT Infusion Kristine L [facility] [address] [place] [phone] Kristine Tim [facility] Start: 12-06-2023 End: 12-06-2023 ambulatory 12/06/2023 12:30 PM EDT Infusion Kristine L [facility] [address] [place] [phone] Kristine [facility]aki [facility] Start: 11-22-2023 End: 11-22-2023 ambulatory 11/22/2023 12:30 PM EDT Infusion Kristine L [facility] [address] [place] [phone] Kristine [facility]aki [facility] Start: 11-21-2023 End: 11-21-2023 ambulatory 11/21/2023 12:30 PM EDT Infusion Kristine Tim [facility] [address] [place] [phone] Kristine [facility]aki [facility] Start: 11-17-2023 End: 11-17-2023 Patient encounter procedure 11/17/2023 3:30 PM EDT Office Visit Kristine Tim [facility] [address] [place] [phone] Connor Gonzalez MD [address] [place] [address] [address] [place] [address] Kristine Maki [facility] Start: 11-15-2023 End: 11-15-2023 ambulatory 11/15/2023 12:30 PM EDT Infusion Kristine Maki [facility] [address] [place] [address] Kristine [facility]aki [facility] Start: 11-14-2023 End: 11-14-2023 ambulatory 11/14/2023 12:30 PM EDT Infusion Kristine [facility] [address] [place] [phone] Kristine [facility]aki [facility] Start: 11-08-2023 End: 11-08-2023 ambulatory 11/08/2023 12:30 PM EDT Infusion Kristine [facility] [address] [place] [phone] Kristine [facility]aki [facility] Start: 11-07-2023 End: 11-07-2023 ambulatory 11/07/2023 12:30 PM EDT Infusion Kristine [facility] [address] [place] [phone] Kristine [facility]aki [facility] Start: 11-01-2023 End: 11-01-2023 ambulatory 11/01/2023 12:30 PM EDT Infusion Kristine [facility] [address] [place] [phone] Kristine [facility]aki [facility] Start: 10-31-2023 End: 10-31-2023 ambulatory 10/31/2023 12:30 PM EDT Infusion Kristine [facility] [address] [place] [phone] Kristinejuvencio Maki [facility] Start: 10-26-2023 End: 10-26-2023 Patient encounter procedure 10/26/2023 2:50 PM EDT Office Visit [address] [place] [phone] Heladio Davis MD [address] [place] [address] [address], [address] [address] [facility] Start: 10-26-2023 End: 10-26-2023 ambulatory 10/26/2023 12:00 PM EDT Infusion Kristine [facility] [address] [place] [phone] Kristine [facility] Start: 10-25-2023 End: 10-25-2023 ambulatory 10/25/2023 12:30 PM EDT Infusion Kristine [facility] [address] [place] [phone] Kristine [facility] Start: 10-23-2023 COVID-19 Vaccine ( season) COVID-19 Vaccine () [facility] [facility] Start: 10-23-2023 Influenza vaccination [facility] Start: 10-18-2023 End: 10-18-2023 ambulatory Kristinejuvencio [facility] Start: 10-17-2023 End: 10-17-2023 ambulatory 10/17/2023 12:30 PM EDT Infusion Kristine [facility] [address] [place] [phone] Kristine [facility] Start: 10-11-2023 End: 10-11-2023 ambulatory Kristinejuvencio [facility] Start: 10-10-2023 End: 10-10-2023 ambulatory 10/10/2023 12:30 PM EDT Infusion Kristine [facility] [address] [place] [phone] Kristinejuvencio [facility] Start: 10-07-2023 End: 10-07-2023 Patient encounter procedure 10/07/2023 1:00 PM EDT Appointment [facility] - CT Imaging [address] [place] [id number] [place] [address] [place] [address] [address] [place], [place] [id number] [facility] - CT Imaging Start: 10-04-2023 End: 10-04-2023 ambulatory Kristine [facility] Start: 10-03-2023 End: 10-03-2023 ambulatory 10/03/2023 12:30 PM EDT Infusion Kristine [facility] [address] [place] [phone] Kristine [facility] Start: 09-27-2023 End: 09-27-2023 ambulatory 09/27/2023 12:00 PM EDT Infusion Kristine [facility] [address] [place] [phone] Kristine L [facility] Start: 09-26-2023 End: 09-26-2023 ambulatory 09/26/2023 12:30 PM EDT Infusion Kristinejuvencio [facility] [address] [place] [phone] Kristine [facility] Start: 09-20-2023 End: 09-19-2024 CT Abdomen and Pelvis W contrast IV CT abdomen and pelvis with contrast Imaging STAT 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) 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 ([facility]-HCC) Expected: 09/20/2023, Expires: 09/19/2024 [facility] [employer] Comment on above: Expected: 09/20/2023, Expires: Start: 09-20-2023 End: 09-19-2024 CT Chest limited W contrast IV CT chest with contrast Imaging STAT 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) Expected: 09/20/2023, Expires: 09/19/2024 [employer] Work Phone: Comment on above: Expected: 09/20/2023, Expires: Start: 09-20-2023 End: 09-20-2023 ambulatory Kristine [facility] Start: 09-19-2023 End: 09-19-2023 ambulatory 09/19/2023 12:30 PM EDT Infusion Kristine [facility] [address] [place] [phone] Kristine [facility] Start: 09-19-2023 End: 09-19-2023 ambulatory 09/19/2023 9:30 AM EDT Infusion Kristine Maki [facility] Medical Oncology [address] [place] [phone] Kristine Maki [facility] Medical Oncology Start: 09-16-2023 End: 09-16-2023 Patient encounter procedure 09/16/2023 3:30 PM EDT Office Visit Kristine Maki [facility] Medical Oncology [address] [place] [phone] Connor Gonzalez MD [address] [place] [address] Kristine [facility] Start: 09-16-2023 End: 09-15-2024 CT Abdomen and Pelvis W contrast IV CT abdomen and pelvis with contrast Imaging Routine 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) Metastatic non-small cell lung cancer (CMS-HCC) Expected: 09/16/2023, Expires: 09/15/2024 [facility] Work Phone: Comment on above: Expected: 09/16/2023, Expires: Start: 09-14-2023 End: 09-14-2023 Patient encounter procedure 09/14/2023 2:15 PM EDT Appointment [facility] - Vascular [address] [place] [phone] Connor Gonzalez MD [address] [place] [address] [facility] - Vascular Start: 09-13-2023 End: 09-12-2024 US.doppler Lower extremity vein - right Vas venous duplex lwr single right Vascular Ultrasound Routine Leg edema, right Expected: 09/13/2023, Expires: 09/12/2024 [facility] Work Phone: Comment on above: Expected: 09/13/2023, Expires: Start: 09-13-2023 End: 09-13-2023 ambulatory 09/13/2023 12:30 PM EDT Infusion Kristine [facility] [address] [place] [phone] Kristine Maki [facility] Start: 09-13-2023 End: 09-13-2023 ambulatory 09/13/2023 8:30 AM EDT Infusion Kristine [facility] [address] [place] [phone] Kristine Maki [facility] Start: 09-12-2023 End: 09-12-2023 ambulatory 09/12/2023 12:30 PM EDT Infusion Kristine [facility] [address] [place] [phone] Kristine Maki [facility] Start: 09-12-2023 End: 09-12-2023 ambulatory 09/12/2023 10:30 AM EDT Infusion Kristine [facility] [address] [place] [phone] Kristine [facility]aki [facility] Start: 09-06-2023 End: 09-06-2023 ambulatory 09/06/2023 12:30 PM EDT Infusion Kristine [facility] [address] [place] [phone] Kristine [facility] Start: 09-06-2023 End: 09-06-2023 ambulatory 09/06/2023 9:30 AM EDT Infusion Kristine L [facility] [address] [place] [phone] Kristine L [facility] Start: 09-05-2023 End: 09-05-2023 Patient encounter procedure 09/05/2023 3:30 PM EDT Office Visit [facility] [address] [address] Addison Cox MD [address] [facility], [address] [place] [phone] [facility] Start: 09-05-2023 End: 09-05-2023 ambulatory 09/05/2023 12:30 PM EDT Infusion Kristine [facility] [address] [place] [phone] Kristine L [facility] Start: 09-05-2023 End: 09-05-2023 ambulatory 09/05/2023 9:30 AM EDT Infusion Kristine L [facility] [address] [place] [phone] Kristine Tim [facility] Start: 08-30-2023 End: 08-30-2023 ambulatory 08/30/2023 12:30 PM EDT Infusion Kristine Tim [facility] [address] [place] [phone] Kristine Maki [facility] Start: 08-30-2023 End: 08-30-2023 ambulatory 08/30/2023 8:30 AM EDT Infusion Kristine Maki [facility] [address] [place] [phone] Kristine Maki [facility] Start: 08-29-2023 End: 08-29-2023 ambulatory Kristine Maki [facility] Start: 08-23-2023 End: 08-23-2023 ambulatory 08/23/2023 9:00 AM EDT Infusion Kristine Maki [facility] Medical Oncology [address] [place] [phone] Kristine Maki [facility] Start: 08-22-2023 End: 08-22-2023 ambulatory 08/22/2023 12:30 PM EDT Infusion Kristine [facility] [address] [place] [phone] Kristine Maki [facility] Start: 08-18-2023 End: 08-18-2023 Patient encounter procedure 08/18/2023 1:30 PM EDT Office Visit Kristine Maki [facility] Medical Oncology [address] [place] [phone] Connor Gonzalez MD [address] [place] [address] Kristine Maki [facility] Start: 08-16-2023 End: 08-16-2023 ambulatory 08/16/2023 12:30 PM EDT Infusion Kristine Maki [facility] Medical Oncology [address] [place] [phone] Kristine Maki [facility] Start: 08-15-2023 End: 08-15-2023 ambulatory 08/15/2023 12:30 PM EDT Infusion Kristine [facility] [address] [place] [phone] Kristine Maki [facility] Start: 08-10-2023 End: 08-10-2023 Patient encounter procedure 08/10/2023 6:45 AM EDT Appointment [facility] - MRI Imaging [address] [place] [address] Connor Gonzalez MD [address] [place] [address] [facility] - MRI Imaging Start: 08-05-2023 End: 08-05-2023 Patient encounter procedure 08/05/2023 2:30 PM EDT Office Visit Kristine Maki [facility] [address] [place] [phone] Connor Gonzalez MD [address] [facility] [address] [place] [address] Kristine Maki [facility] Start: 08-05-2023 End: 08-04-2024 MR Brain WO and W contrast IV MR brain with and without contrast Imaging STAT 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) Metastatic non-small cell lung cancer (CMS-HCC) Expected: 08/05/2023, Expires: 08/04/2024 [facility] Work Phone: Comment on above: Expected: 08/05/2023, Expires: Start: 07-20-2023 End: 07-20-2023 Patient encounter procedure 07/20/2023 2:00 PM EDT Office Visit [facility] [address] [phone] Fermin Wall MD [address] [facility] [address] [place] [address] [facility] Start: 07-16-2023 Adult BMI Screening Adult BMI Screening [facility] Start: 07-16-2023 Echocardiography Echocardiogram [facility] Start: 07-06-2023 Tobacco Screening Tobacco Screening [facility] Start: 07-04-2023 End: 05-16-2025 Cardioversion External Cardioversion External Cardiac Services Routine Paroxysmal atrial fibrillation (CMS/HCC) High risk medication use Expected: 07/04/2023 (Approximate), Expires: 05/16/2025 [facility] Service Area Work Phone: Comment on above: Expected: 07/04/2023 (Approximate), Expi res: 05/16/2025 Start: 07-04-2023 End: 06-15-2024 CT Abdomen and Pelvis W contrast IV CT abdomen and pelvis with contrast Imaging Routine Metastatic non-small cell lung cancer (CMS-HCC) Expected: 07/04/2023, Expires: 06/15/2024 [employer] Comment on above: Expected: 07/04/2023, Expires: Start: 07-04-2023 End: 06-15-2024 CT Chest limited W contrast IV CT chest with contrast Imaging Routine Metastatic non-small cell lung cancer (CMS-HCC) Expected: 07/04/2023, Expires: 06/15/2024 [employer] Work Phone: Comment on above: Expected: 07/04/2023, Expires: Start: 05-17-2023 End: 05-17-2023 Patient encounter procedure 05/17/2023 10:20 AM EDT Office Visit [place] [phone] [facility] [address] [place] [phone] Fermin Wall MD [address] [facility] [address], [address] [place] [phone] [facility] Start: 01-07-2023 End: 01-07-2023 Patient encounter procedure 01/07/2023 10:45 AM EST Appointment [place] [phone] [place] [id number] [place] [phone] [facility] Start: 12-01-2022 FUV, Provider: Fermin Wall, Status: Pen, Time: 1:30 PM FUV, Provider: Fermin Wall, Status: Pen, Time: 1:30 PM [facility] 250 DO Work Phone: Start: 12-01-2022 End: 12-01-2024 Heart Transthoracic Transthoracic Echo (TTE) Complete Echocardiography Routine Diastolic congestive heart failure, unspecified HF chronicity (CMS/HCC) Primary hypertension Paroxysmal atrial fibrillation (CMS/HCC) Expected: 12/01/2022 (Approximate), Expires: 12/01/2024 [facility] Service Area Work Phone: Comment on above: Expected: 12/01/2022 (Approximate), Expi res: 12/01/2024 Start: 10-22-2022 COVID-19 Vaccine ( season) COVID-19 Vaccine ( season) [facility] Start: 10-22-2022 Influenza vaccination [facility] Start: 03-03-2022 FUV, Provider: Fermin Wall, Status: Pen, Time: 2:00 PM FUV, Provider: Fermin Wall, Status: Pen, Time: 2:00 PM [facility] 250 DO Work Phone: Start: 02-21-2022 DEPRESSION ASSESSMENT DEPRESSION ASSESSMENT [facility] Start: 09-13-2020 Diabetes mellitus screening Diabetes Screening [facility] Start: 1997 Hepatitis B Vaccines (1 of 3 - 19+ 3-dose series) Hepatitis B Vaccines (1 of 3 - 19+ 3-dose series) [facility] Start: 1997 Urine microalbumin profile DTAP,TDAP,TD (1 - Tdap) [facility] Start: 01-18-1996 Adult BMI Follow Up Plan Adult BMI Follow Up Plan [facility] Start: 01-18-1996 HEPATITIS C SCREENING HEPATITIS C SCREENING [facility] Start: 01-18-1996 Hepatitis C screening Hepatitis C Screening [facility] Start: 01-18-1996 HIV SCREENING HIV SCREENING [facility] Start: 1990 Depression Screening Depression Screening [facility] Start: 01-18-1984 PNEUMOCOCCAL (1 - PCV) PNEUMOCOCCAL (1 - PCV) [facility] Start: 01-18-1984 Pneumococcal Vaccine: Pediatrics (0 to 5 Years) and At-Risk Patients (6 to 64 Years) (1 - PCV) Pneumococcal Vaccine: Pediatrics (0 to 5 Years) and At-Risk Patients (6 to 64 Years) (1 - PCV) [facility] Start: 01-18-1984 Pneumococcal Vaccine: Pediatrics (0 to 5 Years) and At-Risk Patients (6 to 64 Years) (1 of 2 - PCV) Pneumococcal Vaccine: Pediatrics (0 to 5 Years) and At-Risk Patients (6 to 64 Years) (1 of 2 - PCV) [facility] Start: 1979 MMR Vaccines (1 of 1 - Standard series) MMR Vaccines (1 of 1 - Standard series) [facility] Start: 1978 COVID-19 VACCINE (#1) COVID-19 VACCINE (#1) [facility] Start: 1978 Creatinine measurement Creatinine Level [facility] Start: 1978 HEPATITIS B (1 of 3 - 3-dose series) HEPATITIS B (1 of 3 - 3-dose series) [facility] Start: 1978 Hepatitis B Vaccines (1 of 3 - 3-dose series) Hepatitis B Vaccines (1 of 3 - 3-dose series) [facility] Start: 1978 HIV screening HIV Screening [facility] Start: 1978 Potassium measurement Potassium Level [facility] Start: 1978 Screening for malignant neoplasm of colon [facility] Start: 1978 Yearly Adult Physical Yearly Adult Physical [facility] End: 02-01-2025 3D Plan 3D Plan Radiation Oncology Routine 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) 1 Occurrences starting 02/02/2024 until 02/01/2025 [employer] Phone: Comment on above: 1 Occurrences starting 02/02/2024 until 02/01/2025 End: 01-25-2025 4D Plan 4D Plan Radiation Oncology Routine Metastatic non-small cell lung cancer (CMS-HCC) 1 Occurrences starting 01/26/2024 until 01/25/2025 [employer] Comment on above: 1 Occurrences starting 01/26/2024 until 01/25/2025 End: 01-25-2025 Calculations Calculations Radiation Oncology Routine Metastatic non-small cell lung cancer (CMS-HCC) 1 Occurrences starting 01/26/2024 until 01/25/2025 [employer] Comment on above: 1 Occurrences starting 01/26/2024 until 01/25/2025 End: 08-05-2024 CBC W Auto Differential panel - Blood CBC auto differential Lab STAT 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) Per Treatment Plan for 50 Occurrences starting 08/05/2023 until 08/05/2024, 1 completed [employer] Work Phone: Comment on above: Per Treatment Plan for [address] ar[address] 08/05/2023 until 08/05/2024, 1 completed End: 09-27-2024 CBC W Auto Differential panel - Blood CBC auto differential Lab STAT 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) Per Treatment Plan for 50 Occurrences starting 09/27/2023 until 09/27/2024 [employer] Work Phone: Comment on above: Per Treatment Plan for [address]ting 09/27/2023 until 09/27/2024 End: 06-21-2025 CBC W Auto Differential panel - Blood CBC auto differential Lab STAT 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) Per Treatment Plan for 50 Occurrences starting 06/20/2024 until 06/21/2025 [employer] Work Phone: Comment on above: Per Treatment Plan for [address]ting 06/20/2024 until 06/21/2025 End: 08-05-2024 Comprehensive metabolic 2000 panel - Serum or Plasma Comprehensive metabolic panel Lab STAT 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) Per Treatment Plan for 50 Occurrences starting 08/05/2023 until 08/05/2024, 1 completed [employer] Comment on above: Per Treatment Plan for [address]ting 08/05/2023 until 08/05/2024, 1 completed End: 09-27-2024 Comprehensive metabolic 2000 panel - Serum or Plasma Comprehensive metabolic panel Lab STAT 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) Per Treatment Plan for 50 Occurrences starting 09/27/2023 until 09/27/2024 [employer] Comment on above: Per Treatment Plan for [address] arting 09/27/2023 until 09/27/2024 End: 06-21-2025 Comprehensive metabolic 2000 panel - Serum or Plasma Comprehensive metabolic panel Lab STAT 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) Per Treatment Plan for 50 Occurrences starting 06/20/2024 until 06/21/2025 [employer] Comment on above: Per Treatment Plan for [address] arting 06/20/2024 until 06/21/2025 End: 01-25-2025 Continuing Physics Support Continuing Physics Support Radiation Oncology Routine Metastatic non-small cell lung cancer (CMS-HCC) 1 Occurrences starting 01/26/2024 until 01/25/2025 [employer] Comment on above: 1 Occurrences starting 01/26/2024 until 01/25/2025 End: 08-04-2024 Cortisol Cortisol Lab STAT 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) Per Treatment Plan for 50 Occurrences starting 08/05/2023 until 08/04/2024 [employer] Comment on above: Per Treatment Plan for [address]ting 08/05/2023 until 08/04/2024 Cortisol [Mass/volum e] in Serum or Plasma Cortisol Lab STAT 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) 08/05/2023 4:13 PM EDT [employer] [facility] End: 01-25-2025 CT Guidance ( XRT ) CT Guidance ( XRT ) Radiation Oncology Routine Metastatic non-small cell lung cancer (CMS-HCC) 1 Occurrences starting 01/26/2024 until 01/25/2025 [employer] Comment on above: 1 Occurrences starting 01/26/2024 until 01/25/2025 End: 01-25-2025 Devices Devices Radiation Oncology Routine Metastatic non-small cell lung cancer (CMS-HCC) 1 Occurrences starting 01/26/2024 until 01/25/2025 [employer] Comment on above: 1 Occurrences starting 01/26/2024 until 01/25/2025 End: 01-25-2025 IMRT IMRT Radiation Oncology Routine Metastatic non-small cell lung cancer (CMS-HCC) 1 Occurrences starting 01/26/2024 until 01/25/2025 [employer] Comment on above: 1 Occurrences starting 01/26/2024 until 01/25/2025 End: 01-25-2025 Initial Verification Sim Initial Verification Sim Radiation Oncology Routine Metastatic non-small cell lung cancer (CMS-HCC) 1 Occurrences starting 01/26/2024 until 01/25/2025 [employer] Comment on above: 1 Occurrences starting 01/26/2024 until 01/25/2025 End: 02-01-2025 Port Films Port Films Radiation Oncology Routine 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) 1 Occurrences starting 02/02/2024 until 02/01/2025 [employer] Comment on above: 1 Occurrences starting 02/02/2024 until 02/01/2025 End: 09-04-2024 Pulmonary function test Complete PFT w/ BD (Spirometry (Flow Volume Loop) pre/post short acting bronchodilator w/ DLCO (diffusion study) and Lung Volume) [employer] Work Phone: Comment on above: 1 Occurrences starting 09/05/2023 until 09/04/2024 End: 08-05-2024 Thyrotropin [Units/volume] in Serum or Plasma TSH Lab STAT 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) Per Treatment Plan for 50 Occurrences starting 08/05/2023 until 08/05/2024, 1 completed [employer] Comment on above: Per Treatment Plan for [address]ting 08/05/2023 until 08/05/2024, 1 completed End: 08-05-2024 Thyroxine (T4) free [Mass/volume] in Serum or Plasma T4, free Lab STAT 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) Per Treatment Plan for 50 Occurrences starting 08/05/2023 until 08/05/2024, 1 completed [employer] Comment on above: Per Treatment Plan for [address]ting 08/05/2023 until 08/05/2024, 1 completed End: 01-07-2023 [facility] Service Area Work Phone: Comment on above: Once for 1 Occurrences starting 01/08/20 until 01/07/2023 Immunizations Immunization Date Immunization Notes Care Provider Fa [facility] 05-11-2024 influenza virus vaccine, unspecified formulation Connor Gonzalez MD Work Phone: [employer] [facility] 10-12-2021 diphtheria, tetanus toxoids and pertussis vaccine Izzy Hughes Work Phone: [facility] 250 DO Work Phone: 08-05-2014 tetanus toxoid, reduced diphtheria toxoid, and acellular pertussis vaccine, adsorbed Izzy Hughes Work Phone: [facility] 250 DO Work Phone: NEGATED: Highlighted row has not occurred!02-08-2017 influenza virus vaccine, unspecified formulation Linda Melara [facility] Comment on above: Deferred: Patient Re fused Payers Date Payer Category Payer Self-pay [id number] 2022 Medicaid [id number] 2022 Medicaid HMO [facility] MEDICAID [id number] 2022 Private Health Insurance [id number] 1978 Unknown [id number] 2.16.840.1.242520.3.579. 2.356 1978 Unknown [id number] 2.16.840.1.395752.3.579. 2.356 1978 Unknown [id number] 2.16.840.1.891731.3.579. 2.593 1978 Unknown [id number] 2.16.840.1.593916.3.579. 2.593 1978 Unknown [id number] 2.16.840.1.533506.3.579. 2.1246 1978 Unknown [id number] 2.16.840.1.245846.3.579. 2.1285 1978 Unknown [id number] 2.16.840.1.635591.3.579. 2.128 1978 Unknown [id number] 2.16.840.1.475564.3.579. 2.1243 1978 Unknown [id number] 2.16.840.1.972281.3.579. 2.1243 1978 Unknown [id number] 2.840.1.112101.3.579. 2.1243 1978 Unknown [id number] 2.16840.1.391760.3.579. 2.1243 1978 Unknown [id number] 2.16840.1.718391.3.579. 2.1285 1978 Unknown [id number] 2.16.840.1.413151.3.579. 2.1285 1978 Unknown [id number] 2.16840.1.805748.3.579. 2.1285 1978 Unknown [id number] 2.16.840.1.223796.3.579. 2.1285 1978 Unknown [id number] 2.16.840.1.767155.3.579. 2.1285 1978 Unknown [id number] 2.16.840.1.493577.3.579. 2.1285 1978 Unknown [id number] 2.16840.1.042889.3.579. 2.1285 1978 Unknown [id number] 2.16.840.1.429591.3.579. 2.1285 1978 Unknown [id number] 2.16.840.1.074847.3.579. 2.1285 1978 Unknown [id number] 2.16.840.1.266236.3.579. 2.1285 1978 Unknown [id number] 2.16.840.1.319848.3.579. 2.1285 1978 Unknown [id number] 2.16.840.1.198888.3.579. 2.1285 1978 Unknown [id number] 2.16.840.1.512152.3.579. 2.1285 1978 Unknown [id number] 2.16.840.1.402146.3.579. 2.1285 1978 Unknown [id number] 2.16840.1.645507.3.579. 2.1285 1978 Unknown [id number] 2.16.840.1.277245.3.579. 2.1285 1978 Unknown [id number] 2.16.840.1.363537.3.579. 2.1285 1978 Unknown [id number] 2.16.840.1.258843.3.579. 2.1285 1978 Unknown [id number] 2.16.840.1.714372.3.579. 2.1285 1978 Unknown [id number] 2.16.840.1.055864.3.579. 2.1285 1978 Unknown [id number] 2.16.840.1.429947.3.579. 2.1285 1978 Unknown [id number] 2.16.840.1.194538.3.579. 2.1285 1978 Unknown [id number] 2.16.840.1.611387.3.579. 2.1285 1978 Unknown [id number] 2.16.840.1.860190.3.579. 2.1285 1978 Unknown [id number] 2.16.840.1.562205.3.579. 2.1285 1978 Unknown [id number] 2.16.840.1.471675.3.579. 2.1285 1978 Unknown [id number] 2.16.840.1.171213.3.579. 2.1285 1978 Unknown [id number] 2.16.840.1.508314.3.579. 2.1285 1978 Unknown [id number] 2.16.840.1.231837.3.579. 2.1285 1978 Unknown [id number] 2.16840.1.636737.3.579. 2.1285 1978 Unknown [id number] 2.16.840.1.394305.3.579. 2.1285 1978 Unknown [id number] 2.16.840.1.773633.3.579. 2.1285 1978 Unknown [id number] 2.16.840.1.938578.3.579. 2.1285 1978 Unknown [id number] 2.16.840.1.093281.3.579. 2.1285 1978 Unknown [id number] 2.16.840.1.543644.3.579. 2.1285 1978 Unknown [id number] 2.16.840.1.242602.3.579. 2.1285 1978 Unknown [id number] 2.16.840.1.894228.3.579. 2.1285 1978 Unknown [id number] 2.16.840.1.529907.3.579. 2.1285 1978 Unknown [id number] 2.16.840.1.049440.3.579. 2.1285 1978 Unknown [id number] 2.16.840.1.222549.3.579. 2.1285 1978 Unknown [id number] 2.16.840.1.822997.3.579. 2.1285 1978 Unknown [id number] 2.16.840.1.082714.3.579. 2.1285 1978 Unknown [id number] 2.16.840.1.340491.3.579. 2.1285 1978 Unknown [id number] 2.840.1.146089.3.579. 2.1285 1978 Unknown [id number] 2.16.840.1.356652.3.579. 2.1285 1978 Unknown [id number] 2.840.1.336850.3.579. 2.1285 1978 Unknown [id number] 2.840.1.862645.3.579. 2.1285 1978 Unknown [id number] 2.840.1.279611.3.579. 2.1285 1978 Unknown [id number] 2.840.1.346518.3.579. 2.1285 1978 Unknown [id number] 2.840.1.258127.3.579. 2.1285 1978 Unknown [id number] 2.840.1.247282.3.579. 2.1285 1978 Unknown [id number] 2.840.1.258648.3.579. 2.1285 1978 Unknown [id number] 2.16840.1.264961.3.579. 2.1285 1978 Unknown [id number] 2.16840.1.324901.3.579. 2.1285 1978 Unknown [id number] 2.16.840.1.893439.3.579. 2.1285 1978 Unknown [id number] 2.16.840.1.570691.3.579. 2.1285 1978 Unknown [id number] 2.16.840.1.244226.3.579. 2.1285 1978 Unknown [id number] 2.840.1.377043.3.579. 2.1285 1978 Unknown [id number] 2.840.1.517315.3.579. 2.1285 1978 Unknown [id number] .840.1.498483.3.579. 2.1285 1978 Unknown [id number] 2.840.1.588109.3.579. 2.1285 1978 Unknown [id number] .840.1.476685.3.579. 2.1285 1978 Unknown [id number] 2.840.1.601217.3.579. 2.1285 1978 Unknown [id number] .840.1.582043.3.579. 2.1285 1978 Unknown [id number] 2.840.1.334014.3.579. 2.1285 1978 Unknown [id number] .840.1.769624.3.579. 2.1285 1978 Unknown [id number] .840.1.154845.3.579. 2.1285 1978 Unknown [id number] .840.1.714494.3.579. 2.1285 1978 Unknown [id number] 2.16840.1.013957.3.579. 2.1285 1978 Unknown [id number] 2.16840.1.775074.3.579. 2.1285 1978 Unknown [id number] 2.16.840.1.093232.3.579. 2.1285 1978 Unknown [id number] 2.16.840.1.599345.3.579. 2.1285 1978 Unknown [id number] 2.16.840.1.528158.3.579. 2.1285 1978 Unknown [id number] 2.16.840.1.223956.3.579. 2.1285 1978 Unknown [id number] 2.16.840.1.082772.3.579. 2.1285 1978 Unknown [id number] 2.16.840.1.930125.3.579. 2.1285 1978 Unknown [id number] 2.840.1.483633.3.579. 2.1285 1978 Unknown [id number] 2.840.1.928372.3.579. 2.1285 1978 Unknown [id number] 2.840.1.305211.3.579. 2.1285 1978 Unknown [id number] 2.16.840.1.356082.3.579. 2.1285 1978 Unknown [id number] 2.16840.1.981499.3.579. 2.1285 1978 Unknown [id number] 2.16.840.1.895824.3.579. 2.1285 1978 Unknown [id number] 2.16.840.1.490254.3.579. 2.1285 1978 Unknown [id number] 2.16.840.1.872121.3.579. 2.1285 1978 Unknown [id number] 2.16.840.1.608283.3.579. 2.128 1959 Unknown [id number] 2.16.840.1.036728.19 1959 Unknown [id number] Unknown Unknown [id number] 2.16.840.1.692469.3.579. 2.531 Social History Date Type Detail Facility Start: 09-14-2019 End: 04-03-2020 Current smoker Current smoker [facility] Comment on above: 1 PPD; 2 liter of pop daily ; HALF 2 LITER liter o f pop daily; QUIT 04/2022; Start: 04-03-2020 End: 12-01-2022 Sex Assigned At [facility] Start: 1980 Sex Assigned At Male [facility] Start: 02-21-1990 Tobacco smoking stat us NJIS Smokes tobacco daily [facility] Start: 02-21-1990 End: 04-21-2022 History of tobacco use Cigarette Smoker [facility] Start: 09-14-2019 End: 09-05-2023 Tobacco use and exposure Smokeless tobacco non-user [facility] Start: 06-11-2022 End: 08-31-2024 Alcohol intake Current non-drinker of alcohol (finding) [facility] Start: 12-01-2022 End: 09-05-2023 Tobacco smoking status NHIS Ex-smoker [facility] End: 04-21-2022 History of tobacco use Current smoker [facility] Work Phone: Start: 12-01-2022 End: 07-20-2023 Tobacco use and exposure User of smokeless tobacco [facility] Work Phone: History of tobacco use Chews Tobacco [facility] Work Phone: Start: 12-01-2022 End: 11-02-2023 Alcohol intake Lifetime non-drinker (finding) [facility] Work Phone: Start: 1980 Sex Assigned At Not on file [facility] Work Phone: Start: 11-21-2022 End: 11-02-2023 Exposure to SARS-CoV-2 (event) Not sure [facility] How hard is it for y ou to pay for the very basics like food, housing, medical care, and heating Hard [facility] Adolescent depressio n screening assessment 1 [facility] Start: 09-26-2014 Sex Male (finding) [facility] How hard is it for y ou to pay for the very basics like food, housing, medical care, and heating Somewhat hard [facility] Goals Date Patient Goal Desired Activity /State Personal health goal Comment on above: Formatting of this n ote might be different from the original. Evaluation of progress towards goal: under assessment Clinical Notes 05-19-2021 to 08-31-2024 Endy Osman RN - 08/31/2024 12:26 PM EDTChduina Gonzalez MD - 08/31/2024 11:15 AM EDTPatient InstructionsTelephone Encounter - Nadine Samuels RN - 08/31/2024 8:59 AM EDTPatient Instructions Note Date & Type Note Facility 08-31-2024 History of Present illness Narrative Seen by Dr. Gonzalez today. Instructed to give oncolinMotribe info on ramucirumab and docetaxel. Will call patient when approved by insurance to schedule treatment. 6 week f/u scheduled. documented in this encounter [facility] 08-31-2024 History of Present illness Narrative Images from the original note were not included. [facility] 08/31/24 Arvin Julien is a 44 y.o. year old male seen today in the oncology clinic. Chief Complaint Patient presents with Follow-up History of Present Illness: Mr. Julien is a 44 y.o. 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 He was status post 4 cycles of carboplatin/paclitaxel, carboplatin with AUC of 6. After 4 cycles of combined treatment, he was maintained on Keytruda only. October 2022 showed excellent response to treatment. Unfortunately February 2023 showed [...] Initially he is responding well, he developed significant shortness of breath and went to hospital [...] History: Diagnosis Date Anxiety Hypertension Lung cancer ([facility]) Shortness of breath Sleep apnea Visual impairment glasses Past Surgical History: Procedure Laterality Date CARDIAC PACEMAKER PLACEMENT 03/14/2024 PORTACATH PLACEMENT RELEASE CARPAL TUNNEL Left 11/20/2019 Performed by Carlee Rodriguez Jr., DO at [facility] RELEASE CARPAL TUNNEL Right 09/25/2019 Performed by Carlee Rodriguez Jr. DO at [facility] TONSILLECTOMY UVULOPALATOPHARYNGOPLASTY, BILATERAL INTERMURAL CAUTERY INFERIOR TURBINATES,OUTFRACTURES N/A 02/08/2017 Performed by Shira Patterson MD at [facility] Family History Problem Relation Age of [...] 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 ([facility]) Dose: 1 mg Signed by: Connor Gonzalez 1 mg, oral, 2 times daily, TAKE 1 TABLET BY MOUTH EVERY MORNING AND 1 TABLET AT BEDTIME Commonly known as: XANAX amiodarone 200 mg tablet Refills: 0 Dose: 200 mg Commonly known as: PACERONE apixaban 5 mg tablet Quantity: 60 tablet Refills: 11 For diagnoses: Abnormal heart rhythm Dose: 5 mg Signed by: JUAN Rubin 5 mg, oral, 2 times daily Commonly known as: ELIQUIS buprenorphine-naloxone 8-2 mg per SL tablet Refills: 0 Dose: 1 tablet Commonly known as: SUBOXONE FARXIGA 10 mg tablet Refills: 0 Dose: 10 mg Generic drug: dapagliflozin propanediol guaiFENesin 600 mg tablet extended release 12hr Quantity: 60 tablet Refills: 1 Dose: 600 mg Signed by: Connor Gonzalez 600 mg, oral, Every 12 hours scheduled Commonly known as: MUCINEX LORazepam 1 mg tablet Quantity: 90 tablet Refills: 0 Doctor's comments: 30 Day Supply For diagnoses: 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 Read the directions carefully, and ask your doctor or other care provider to review them with you. Medications Discontinued This Visit dexAMETHasone 4 mg tablet Commonly known as: DECADRON Stopped by: Connor Gonzalez ondansetron 8 mg tablet Commonly known as: ZOFRAN Stopped by: Connor Gonzalez prochlorperazine 10 mg tablet Commonly known as: COMPAZINE Stopped by: Connor Gonzalez Review of Symptoms: Review of Systems ECO- Symptomatic; in bed <50% of the day Physical Exam: General: Well appearing, in no acute distress. Vitals: BP 125/75 Pulse 90 Temp 36.7 C (98 F) (Oral) Resp 20 Ht 185.4 cm (6' 0.99 ) Wt 111.4 kg (245 lb 9.6 oz) SpO2 94% BMI 32.41 kg/m Body mass index is 32.41 kg/m . Eyes: No icterus, no conjuctival erythema ENT: Pharyngeal mucosa was moist without exudate and inflammation or ulcerations. Tongue was midline and appeared normal.Gums were unremarkable. Lymph nodes: No palpable adenopathy Neck: Supple. There were no masses, tenderness. Trachea was midline. Respiratory: Respirations were non-labored. Lungs were clear to auscultation. There was no dullness to percussion. Cardiac: Regular rate and rhythm, S1 [...] technologist's notes above Consent/pre-procedure evaluation: See below. Drummond protocol timeout verification performed. Estimated blood loss: [...] Alvin Lomeli MD on 05/31/2023 3:03 PM Recent Labs: [...] reviewed the patient's previous treatment history at [facility]. He received 4 cycles of carboplatin/paclitaxel/Keytruda. Carboplatin dose was AUC of 6. The patient's blood counts remains stable during the treatment. His most recent CT scan showed disease progression with enlarging mediastinal and supraclavicular lymphadenopathy. His repeat CT scan showed significant disease progression with enlarging mediastinal and hilar mass and multiple new lung nodules Patient's brain MRI [...] progression with residual hypermetabolic masslike disease in the superior right hilum or right lower paratracheal region with adjacent low-level activity related to the posttherapy pneumonitis The patient was started on [...] if he developed significant hemoptysis. Thank you. Connor Gonzalez MD Please note that portions of this note were generated using voice recognition [employer] dictation software. Although every effort was made to ensure the accuracy of this automated machine operator helper, some errors in machine operator helper may have occurred. CC: Patient Care Team: Katie Torres DO as PCP - General (Family Medicine) Connor Gonzalez MD as Consulting Physician (Hematology) PCP:Katie Torres Referring MD: Addison Pérez MD documented [facility] 08-31-2024 Instructions Connor Gonzalez MD - 08/31/2024 11:15 AM EDT Give info on ramucirumab and docetaxel. F/u in 6 weeks. [facility] 08-31-2024 Miscellaneous Notes Transition of Care (*required) *Additional Questions/Concerns Requiring PCP Follow-Up: Advised pt to call the PCPs office to set a ff up appt with him. Pt however is [...] Hem/Onc and Pulmonology *Name of Discharging Facility: [facility] Date of Facility Discharge: 08/29/2024 - 08/30/2024 Date of Interactive Contact and Name of Industrial Training Specialist: 7.11 at 8:59 Unable to reach patient. [...] time. *Follow Up Appointments with Providers: Primary: Katie Torres DO TBD Specialty: Connor Gonzalez (Oncology) 7.11 at 11:15 Specialty: CT combination [...] improved, however still experiences some occasional sob worse with activity better at rest. Energy conservation reviewed. [...] of discharge instructions and medications in overall improvement in long-term survival Education Provided by ACN to Support Self-Management, Independent Living and ADLs: Instruct patient to call the office for questions, concerns, new worsening or recurring s/s. Call 911 for urgent symptoms such as CP, SOB or symptoms of CVA. Education given on meds, diet, infection prevention, safety and fall precautions, follow-up appt and d/c instruction reviewed. Communication with Home Health Agencies and Other Services Utilized/Needed by the Patient: Patient discharge home self-care and support of family. Please contact Arvin to see how he is doing after his hospitalization and if he wants to schedule a hospital follow-up. Thank you Attempted to call patient, left VM documented in this encounter [facility] 08-31-2024 Telephone encounter Note Transition of Care (*required) *Additional Questions/Concerns Requiring PCP Follow-Up: Advised pt to call the PCPs office to set a ff up appt with him. Pt however is [...] Hem/Onc and Pulmonology *Name of Discharging Facility: [facility] Date of Facility Discharge: 08/29/2024 - 08/30/2024 Date of Interactive Contact and Name of Industrial Training Specialist: 7. at 8:59 Unable to reach patient. Generic message left with contact number for a return phone call. 08.31 at 2:57 CN spoke to patient regarding [...] time. *Follow Up Appointments with Providers: Primary: Katie Torres DO TBD Specialty: Connor Gonzalez (Oncology) 7.11 at 11:15 Specialty: CT combination [...] improved, however still experiences some occasional sob worse with activity better at rest. Energy conservation reviewed. [...] of discharge instructions and medications in overall improvement in long-term survival Education Provided by ACN to Support Self-Management, Independent Living and ADLs: Instruct patient to call the office for questions, concerns, new worsening or recurring s/s. Call 911 for urgent symptoms such as CP, SOB or symptoms of CVA. Education given on meds, diet, infection prevention, safety and fall precautions, follow-up appt and d/c instruction reviewed. Communication with Home Health Agencies and Other Services Utilized/Needed by the Patient: Patient discharge home self-care and support of family. [facility] 08-31-2024 Telephone encounter Note Please contact Arvin to see how he is doing after his hospitalization and if he wants to schedule a hospital follow-up. Thank you [facility] 08-31-2024 Telephone encounter Note Attempted to call patient, left VM [facility] 08-21-2024 History of Present illness Narrative Pt relayed he has area food resource lists; pt does not endorse current food insecurity. Opportunity provided to ask questions, pt does not endorse any at this time; documentation writer available & following documented in this encounter [facility] 08-21-2024 History of Present illness Narrative Patient is here for Gemzar/Carboplatin as scheduled. He reported no change in SOB over night. He was updated that Dr. Gonzalez would like for him to get a CT chest/abd/pelvis in 1-2 weeks to evaluate SOB. Patient was instructed that he will need to call central scheduling to set up testing and number was provided. He verbalized understanding to instructions. Only other change since last treatment was he had some nausea/vomiting but he feels it could be related to the SOB. Toxicity assessment completed per flowsheet data. Labs reviewed. Pre chemo check completed with Alicia Maya RN. Port accessed under sterile procedure with brisk blood return verified and line flushes with ease. NS initiated as mainline at KVO rate. IV premeds administered per APR. Gemzar infused over 30 minutes. Carboplatin infused over 30 minutes. Patient tolerated entire treatment well without issues. Port flushed via push/pause method, saline locked, de-accessed and site covered with band aid. Patient verbalized understanding to all instructions. Treatment calendar and CT orders provided. Patient discharged in stable condition to our facility transport. documented in this encounter [facility] 08-20-2024 History of Present illness Narrative Port draw completed per procotol and patient tolerated well. Patient reports he is SOB since last Gemzar infusion. Patient not noted to have increase respiratory rate, but breathing is heavy as if he is not able to catch his breath and there is audible wheezing. He does report he has asthma and needs to see pulmonology, but they cannot get him in for quite some time. Inquired if patient has reached out to PCP to update and patient reports he did not because he doesn't care for PCP. Instructed patient to contact PCP office to see if they can get him in for an appointment soon in case Dr. Gonzalez does defer. Patient verbalized understanding. Patient discharged in stable condition to our facility transport. Update to Dr. Gonzalez and responded by saying: From: Connor Gonzalez MD Sent: 08/20/2024 1:42 PM EDT To: Shanita Schwab RN We can get CT scan in 1-2 weeks. We will update patient tomorrow at treatment appointment regarding CT scan. documented in this encounter [facility] 08-13-2024 Miscellaneous Notes Patient's mother Valerie (PHI) called and stated that the patient is complaining of shortness of breath and having hard time breathing and he needed a refill on his albuterol inhaler. Acting Professor advised Valerie if he is having difficulty breathing and shortness of breath he should go to the ER for evaluation. Also sent request to [place] for refill on Albuterol inhaler to be sent to [facility] pharmacy in [place]. documented in this encounter [facility] 08-13-2024 Telephone encounter Note Patient's mother Valerie (PHI) called and stated that the patient is complaining of shortness of breath and having hard time breathing and he needed a refill on his albuterol inhaler. Acting Professor advised Valerie if he is having difficulty breathing and shortness of breath he should go to the ER for evaluation. Also sent request to [place] for refill on Albuterol inhaler to be sent to [facility] pharmacy in [place]. [facility] 08-07-2024 History of Present illness Narrative Patient is here for gemzar infusion as scheduled. He is tolerating treatments well. His cough and shortness of breath is at baseline. Lasb reviewed WNL for treatment. Port accessed per protocol. NS started at KVO. IV premeds given. Gemzar infused over 30 minutes. Port flushed via push/pause method, saline locked, de-accessed and site covered with band aid. Patient discharged in stable condition. Patient calendar reviewed and aware all appointments are available on [facility] and [facility] will be provided with next treatment calendar to transport patient. He verbalized understanding to all, discharged in stable condition to our facility transport. documented in this encounter [facility] 08-06-2024 History of Present illness Narrative Port draw per physician order, pt tolerated well. No complaints. Discharge per self via private car. documented in this encounter [facility] 07-24-2024 History of Present illness Narrative Patient is here for Gemzar/Carboplatin as scheduled. He reports that he has been tolerating previous infusions well. Toxicity assessment completed per flowsheet data. Labs reviewed. Pre chemo check completed with Melisa Schwartz RN. Port accessed under sterile procedure with brisk blood return verified and line flushes with ease. NS initiated as mainline at KVO rate. IV premeds administered per APR. Gemzar infused over 30 minutes. Carboplatin infused over 30 minutes. Patient tolerated entire treatment well without issues. Port flushed via push/pause method, saline locked, de-accessed and site covered with band aid. Patient verbalized understanding to all instructions. Treatment calendar reviewed. Patient discharged in stable condition to our facility transport. documented in this encounter [facility] 07-20-2024 History of Present illness Narrative The patient is here for follow up of treatment, assessment and tolerance Dr Gonzalez recommends the patient F/u 08/31/2024. Continue tx every 2 weeks. Calendar given to patient on discharge documented in this encounter [facility] 07-20-2024 History of Present illness Narrative Images from the original note were not included. [facility] 07/20/24 Arvin Julien is a 44 y.o. year old male seen today in the oncology clinic. Chief Complaint Patient presents with Follow-up History of Present Illness: Mr. Julien is a 44 y.o. 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 He was status post 4 cycles of carboplatin/paclitaxel, carboplatin with AUC of 6. After 4 cycles of combined treatment, he was maintained on Keytruda only. October 2022 showed excellent response to treatment. Unfortunately February 2023 showed [...] to disease progression he was changed to carboplatin/gemcitabine. Overall he is tolerating well, no significant neuropathies. His anxiety is much better controlled with Xanax and once a day Ativan. He usually takes 2 tablets of Xanax able to get out of his house losing some weight and doing some exercise. Breathing is better no significant shortness of breath. No headaches or vision change. Past Medical History: Diagnosis Date Anxiety Hypertension Lung cancer ([facility]) Shortness of breath Sleep apnea Visual impairment glasses Past Surgical History: Procedure Laterality Date CARDIAC PACEMAKER PLACEMENT 03/14/2024 PORTACATH PLACEMENT RELEASE CARPAL TUNNEL Left 11/20/2019 Performed by Carlee Rodriguez Jr., DO at [facility] RELEASE CARPAL TUNNEL Right 09/25/2019 Performed by Carlee Rodrigeuz Jr., DO at [facility] TONSILLECTOMY UVULOPALATOPHARYNGOPLASTY, BILATERAL INTERMURAL CAUTERY INFERIOR TURBINATES,OUTFRACTURES N/A 02/08/2017 Performed by Shira Patterson MD at [facility] Family History Problem Relation Age of [...] Strain: Low Risk (11/30/2023) Received from [facility] Overall Financial Resource Strain (CARDIA) Difficulty of Paying Living Expenses: Not hard at all Recent Concern: Financial Resource Strain - High Risk (09/09/2023) Overall Financial Resource Strain (CARDIA) Difficulty of Paying Living Expenses: Hard Food Insecurity: No Food Insecurity (06/29/2024) Hunger Screening Food Insecurity - Worry: Never True Food Insecurity - Inability: Never True Transportation Needs: No Transportation Needs (11/30/2023) Received from [facility] Transportation In the past 12 months, has lack of transportation kept you from medical appointments or from getting medications?: No Physical Activity: Insufficiently Active (11/30/2023) Received from [facility] Exercise Vital Sign Days of Exercise per Week: 3 days Minutes of Exercise per Session: 30 min Interpersonal Safety: Unknown (11/30/2023) Received from [facility] Humiliation, Afraid, Rape, and Kick questionnaire Fear of Current or Ex-Partner: No Housing Instability: Low Risk (11/30/2023) Received from [facility] Housing Stability Vital Sign In the last 12 months, was there a time when you did not have a steady place to sleep or slept in a longterm (including now)?: No Allergies Allergen Reactions Celecoxib Other reaction(s): GI Distress, Hives Metaxalone Other reaction(s): GI Distress Other Nausea And Vomiting and Other (See Comments) Other reaction(s): Hives Darvocet N 100 Medication List Accurate as of July 20, 2024 3:06 PM. If you have any questions, ask your nurse or doctor. 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 Commonly known as: COMPAZINE What changed: Another medication with the same name was removed. Continue taking this medication, and follow the directions you see here. 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) Dose: 1 mg Signed by: Connor Gonzalez 1 mg, oral, 2 times daily Commonly known as: XANAX amiodarone 200 mg tablet Refills: 0 Dose: 200 mg Commonly known as: PACERONE apixaban 5 mg tablet Quantity: 60 tablet Refills: 11 For diagnoses: Abnormal heart rhythm Dose: 5 mg Signed by: Marie Wooten APRN-BLANK DRILLER 5 mg, oral, 2 times daily Commonly known as: ELIQURAQUEL buprenorphine-naloxone 8-2 mg per SL tablet Refills: 0 Dose: 1 tablet Commonly known as: SUBOXONE dexAMETHasone 4 mg tablet Quantity: 60 tablet Refills: 2 For diagnoses: 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 Commonly known as: DECADRON doxycycline 100 mg tablet Refills: 0 Dose: 100 mg Commonly known as: VIBRA-TABS FARXIGA 10 mg tablet Refills: 0 Dose: 10 mg Generic drug: dapagliflozin propanediol losartan 25 mg tablet Refills: 0 Dose: 25 mg Commonly known as: COZAAR MEN'S MULTI-VITAMIN tablet Refills: 0 Dose: 1 tablet Generic drug: multivitamin metoprolol tartrate 100 mg tablet Refills: 0 Dose: 100 mg Commonly known as: LOPRESSOR ondansetron 8 mg tablet Quantity: 30 tablet Refills: 2 For diagnoses: 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 ([facility]) Signed by: Connor Gonzalez Starting on day 3, take 1 tablet by mouth twice daily as needed for severe nausea or vomiting. Commonly known as: ZOFRAN spironolactone 50 mg tablet Refills: 0 Dose: 50 mg Commonly known as: ALDACTONE Review of Symptoms: Review of Systems ECO- Symptomatic; in bed <50% of the day Physical Exam: General: Well appearing, in no acute distress. Vitals: BP 111/72 Pulse 93 Temp 36.7 C (98 F) (Oral) Resp 16 Ht 185 cm (6' 0.84 ) Wt 117.6 kg (259 lb 3.2 oz) SpO2 95% BMI 34.35 kg/m Body mass index is 34.35 kg/m . Eyes: No icterus, no conjuctival erythema ENT: Pharyngeal mucosa was moist without exudate and inflammation or ulcerations. Tongue was midline and appeared normal.Gums were unremarkable. Lymph nodes: No palpable adenopathy Neck: Supple. There were no masses, tenderness. Trachea was midline. Respiratory: Respirations were non-labored. Lungs were clear to auscultation. There was no dullness to percussion. Cardiac: Regular rate and rhythm, S1 [...] technologist's notes above Consent/pre-procedure evaluation: See below. Drummond protocol timeout verification performed. Estimated blood loss: [...] Alvin Lomeli MD on 05/31/2023 3:03 PM Recent Labs: Recent Results (from the past 2 weeks) CBC auto differential Collection Time: 07/09/24 2:17 PM Result Value Ref Range WBC 4.3 4 - 11 x10E9/L RBC Count 4.58 4.1 - 5.7 X10E12/L Hemoglobin 13.1 13 - 17 g/dL Hematocrit 38.9 (L) 39 - 50 % MCV 85 80 - 100 fL MCH 28.5 27 - 34 pg MCHC 33.6 32 - 36 g/dL RDW 14.8 11.5 - 15 % Platelet Count 159 150 - 450 X10E9/L MPV 7.9 7 - 12 fL Neutrophils Relative 70.2 % Lymphocytes Relative 14.4 % Monocytes Relative 13.4 % Eosinophils Relative 1.5 % Basophils Relative 0.5 % Neutrophils Absolute (A) 3.0 1.5 - 6.6 10*3/uL Lymphocytes Absolute 0.6 (L) 1.0 - 3.5 10*3/uL Monocytes Absolute 0.6 0.0 - 0.9 10*3/uL Eosinophils Absolute 0.1 0.0 - 0.4 10*3/uL Basophils Absolute 0.0 0.0 - 0.2 10*3/uL Differential Type AUTOMATED DIFFERENTIAL Comprehensive metabolic panel Collection Time: 07/09/24 2:17 PM Result Value Ref Range SODIUM 134 134 - 146 mmol/L POTASSIUM 3.7 3.5 - 5.0 mmol/L CHLORIDE 104 98 - 109 mmol/L CARBON DIOXIDE 23 22 - 32 mmol/L ANION GAP 7 5 - 15 mmol/L BLOOD UREA NITROGEN 5 5 - 23 mg/dL CREATININE 0.88 0.70 - 1.20 mg/dL GLUCOSE 102 (H) 65 - 99 mg/dL CALCIUM 8.3 (L) 8.5 - 10.5 mg/dL TOTAL PROTEIN 7.1 6.0 - 8.0 g/dL ALBUMIN 3.5 3.2 - 5.3 g/dL ALKALINE PHOSPHATASE 53 39 - 130 U/L AST 54 (H) <=41 U/L ALT 74 (H) <=40 U/L BILIRUBIN,TOTAL 0.6 0.3 - 1.2 mg/dL EGFR Non-Race Dependent >90 >=60 ml/min/1.73sq.m Diagnosis Problem list: Problem List Items Addressed [...] reviewed the patient's previous treatment history at [facility]. He received 4 cycles of carboplatin/paclitaxel/Keytruda. Carboplatin dose was AUC of 6. The patient's blood counts remains stable during the treatment. His most recent CT scan showed disease progression with enlarging mediastinal and supraclavicular lymphadenopathy. His repeat CT scan showed significant disease progression with enlarging mediastinal and hilar mass and multiple new lung nodules Patient's brain MRI [...] progression with residual hypermetabolic masslike disease in the superior right hilum or right lower paratracheal region with adjacent low-level activity related to the posttherapy pneumonitis There is also new multifocal nodular or masslike areas of activity in the periphery of the right upper lobe and in the right lung base and along the medial pleural reflection or pericardium There is new hypermetabolic lymphadenopathy in the left celiac and right retrocrural region and subtle bone disease in the lumbar spine Recently radiated area has improved. Continue current treatment with Carbo [place] with gemcitabine Plan to have treatment every 2 weeks for better tolerance. F/u 08/31/2024. Continue tx every 2 weeks. Plan to repeat PET scan in September 2024. Continue Ativan 1 mg twice a day as needed. Advise patient to establish care with psychiatry regarding his severe anxiety. Thank you. Connor Gonzalez MD Please note that portions of this note were generated using voice recognition [employer] dictation software. Although every effort was made to ensure the accuracy of this automated machine operator helper, some errors in machine operator helper may have occurred. CC: Patient Care Team: Katie Torres DO as PCP - General (Family Medicine) Connor Gonzalez MD as Consulting Physician (Hematology) PCP:Katie Torres Referring MD: Addison Pérez MD documented in this encounter [facility] 07-20-2024 Instructions Connor Gonzalez MD - 07/20/2024 2:15 PM EDT F/u 08/31/2024. Continue tx every 2 weeks. documented in this encounter [facility] 07-10-2024 History of Present illness Narrative Patient is here for gemzar. He tolerated last treatment well without any side effects. His cough and shortness of breath is at baseline. Lasb reviewed WNL for treatment. Port accessed per protocol. NS started at KVO. IV premeds given. Gemzar infused over 30 minutes. Patient given calendar and [place] for transportation. Port flushed, saline locked and needle removed. Patient discharged in stable condition. documented in this encounter [facility] 07-04-2024 Miscellaneous Notes Patient called office for refill of alprazolam 1mg, We were not the last ones to refill that medication told patient has to call dr. Gonzalez to get refill for medication. 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 [facility] does not prescribe controlled substances. documented in this encounter [facility] 07-04-2024 Telephone encounter Note Patient called office for refill of alprazolam 1mg, We were not the last ones to refill that medication told patient has to call dr. Gonzalez to get refill for medication. 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 [facility] does not prescribe controlled substances. [facility] 07-01-2024 Evaluation + Plan note Associated Problem(s): Anxiety Anxiety symptoms reported to be controlled with medications for anxiety. Patient reports that he has been able to tolerate new regiment of chemo to this point.Communicated with Dr Parker about taking over prescribing benzodiazepine for anxiety given his history. He is willing to prescribe benzodiazepine but requested that patient only receive either lorazepam and alprazolam for treatment of anxiety. [facility] 07-01-2024 Miscellaneous Notes Associated Problem(s): Anxiety Anxiety symptoms reported to be controlled with medications for anxiety. Patient reports that he has been able to tolerate new regiment of chemo to this point.Communicated with Dr Parker about taking over prescribing benzodiazepine for anxiety given his history. He is willing to prescribe benzodiazepine but requested that patient only receive either lorazepam and alprazolam for treatment of anxiety. Associated Problem(s): Chronic HFrEF (heart failure with reduced ejection fraction) ([facility]) Symptoms of congestive heart failure absent and patient tolerating medications well. Continue with spironolactone 50 mg daily, metoprolol tartrate 100 mg documented in this encounter [facility] 06-29-2024 Evaluation + Plan note Associated Problem(s): Chronic HFrEF (heart failure with reduced ejection fraction) ([facility]) Symptoms of congestive heart failure absent and patient tolerating medications well. Continue with spironolactone 50 mg daily, metoprolol tartrate 100 mg [facility] 06-29-2024 History of Present illness Narrative Images from the original note were not included. [facility] [address] [place] [address] [place] [address] Patient: Arvin Julien Date of : 1980 Encounter Date: 06/29/2024 Subjective: Chief Complaint Chief Complaint Patient presents with Follow-up History of Present Illness Arvin Julien is a 44 y.o. male, established patient, that presents to the office for follow up for 44 yr old male with stage 4 lung cancer presented to clinic for follow for anxiety. He states that he started a new chemo regiment 2 days ago. He states that so far he has tolerated first dose of treatment. Last imaging Patient states that he has thought about palliative care and fees like too busy with many appointments He states that he has been feeling better with anxiety with current treatment. Reviewed [facility] report and he last filled 15 tablets of Lorazepam 1 mg on and last filled alprazolam 1 mg #60 on 06/05/24. He is taking alprazolam twice daily as directed and taking lorazepam only as needed. Congestive Heart Failure Presents for follow-up (Current treatment: losartan 25 mg daily, metoprolol tartrate 100 mg daily,) visit. Associated symptoms include shortness of breath (He states that he has been using the inhaler more as he was having increased wheezing and raspiness). Pertinent negatives include no chest pain, edema, muscle weakness, orthopnea, palpitations or unexpected weight change. The symptoms have been stable (He states that with pacemaker and amiodarone he has not been experiencing any palpitations or known arrythmias. No signs of fluid overload noted). Review of Systems Review of Systems Constitutional: Negative for unexpected weight change. Denies generalized weakness Respiratory: Positive for shortness of breath (He states that he has been using the inhaler more as he was having increased wheezing and raspiness). Cardiovascular: Negative for chest pain, palpitations and leg swelling. Musculoskeletal: Negative for muscle weakness. Neurological: Negative for dizziness and light-headedness. Vital Signs BP 130/72 (BP Site: Left Arm, BP Postition: Sitting) Pulse 81 Temp 36.6 C (97.8 F) (Oral) Wt 119.7 kg (264 lb) SpO2 97% BMI 34.99 kg/m Physical Exam Physical Exam Vitals reviewed. Constitutional: General: He is not in acute distress. Appearance: He is well-groomed and overweight. He is not ill-appearing or toxic-appearing. Cardiovascular: Rate and Rhythm: Normal rate and regular rhythm. Pulses: Posterior tibial pulses are 2+ on the right side and 2+ on the left side. Heart sounds: No murmur heard. Pulmonary: Effort: Pulmonary effort is normal. No accessory muscle usage or respiratory distress. Breath sounds: Normal breath sounds. No decreased breath sounds, wheezing, rhonchi or rales. Abdominal: General: Bowel sounds are normal. Palpations: Abdomen is soft. Musculoskeletal: Right lower leg: No edema. Left lower leg: No edema. Psychiatric: Mood and Affect: Mood normal. Speech: Speech normal. Behavior: Behavior normal. Behavior is not agitated. Past Medical, Family, Surgery and Social History Past Medical History: Diagnosis Date Anxiety Hypertension Lung cancer ([facility]) Shortness of breath Sleep apnea Visual impairment glasses Past Surgical History: Procedure Laterality Date CARDIAC PACEMAKER PLACEMENT 03/14/2024 PORTACATH PLACEMENT RELEASE CARPAL TUNNEL Left 11/20/2019 Performed by Carlee Rodriguez Jr., DO at [facility] RELEASE CARPAL TUNNEL Right 09/25/2019 Performed by Carlee Rodriguez Jr., DO at [facility] TONSILLECTOMY UVULOPALATOPHARYNGOPLASTY, BILATERAL INTERMURAL CAUTERY INFERIOR TURBINATES,OUTFRACTURES N/A 02/08/2017 Performed by Shira Patterson MD at [facility] Family History Problem Relation Age of Onset Heart disease Mother Hypertension Mother Heart disease Father Social History Socioeconomic History Marital status: Spouse name: Not on file Number of children: Not on file Years of education: Not on file Highest education level: Not on file Occupational History Not on file Tobacco Use Smoking status: Former Current packs/day: 1.00 Types: Cigarettes Smokeless tobacco: Never Vaping Use Vaping status: Never Used Substance and Sexual Activity Alcohol use: No Drug use: Yes Types: Marijuana Comment: gummies Sexual activity: Defer Other Topics Concern Not on file Social History Narrative Not on file Social Drivers of Health Financial Resource Strain: Low Risk (11/30/2023) Received from [facility] Overall Financial Resource Strain (CARDIA) Difficulty of Paying Living Expenses: Not hard at all Recent Concern: Financial Resource Strain - High Risk (09/09/2023) Overall Financial Resource Strain (CARDIA) Difficulty of Paying Living Expenses: Hard Food Insecurity: No Food Insecurity (06/29/2024) Hunger Screening Food Insecurity - Worry: Never True Food Insecurity - Inability: Never True Transportation Needs: No Transportation Needs (11/30/2023) Received from [facility] Transportation In the past 12 months, has lack of transportation kept you from medical appointments or from getting medications?: No Lack of Transportation (Non-Medical): Not on file Physical Activity: Insufficiently Active (11/30/2023) Received from [facility] Exercise Vital Sign Days of Exercise per Week: 3 days Minutes of Exercise per Session: 30 min Stress: Not on file Social Connections: Not on file Interpersonal Safety: Unknown (11/30/2023) Received from [facility] Humiliation, Afraid, Rape, and Kick questionnaire Fear of Current or Ex-Partner: No Emotionally Abused: Not on file Physically Abused: Not on file Sexually Abused: Not on file Housing Instability: Low Risk (11/30/2023) Received from [facility] Housing Stability Vital Sign Unable to Pay for Housing in the Last Year: Not on file Number of Places Lived in the Last Year: Not on file In the last 12 months, was there a time when you did not have a steady place to sleep or slept in a longterm (including now)?: No Allergies and Current Medications Allergies Allergen Reactions Celecoxib Other reaction(s): GI Distress, Hives Metaxalone Other reaction(s): GI Distress Other Nausea And Vomiting and Other (See Comments) Other reaction(s): Hives Darvocet N 100 Current Outpatient Medications on File Prior to Visit Medication Sig albuterol (PROVENTIL HFA;VENTOLIN HFA) 90 mcg/actuation inhaler Inhale 2 puffs every 6 (six) hours as needed for wheezing. ALPRAZolam (XANAX) 1 mg tablet Take 1 tablet (1 mg total) by mouth in the morning and at bedtime. amiodarone (PACERONE) 200 mg tablet Take 1 tablet (200 mg total) by mouth in the morning. apixaban (ELIQUIS) 5 mg tablet Take 1 tablet (5 mg total) by mouth in the morning and 1 tablet (5 mg total) before bedtime. buprenorphine-naloxone (SUBOXONE) 8-2 mg per SL tablet Place 1 tablet under the tongue in the morning and 1 tablet before bedtime. dapagliflozin propanediol (FARXIGA) 10 mg tablet Take 1 tablet (10 mg total) by mouth in the morning. dexAMETHasone (DECADRON) 4 mg tablet Take 2 tablets (8 mg) by mouth once daily on days 2, 3 and 4. doxycycline (VIBRA-TABS) 100 mg tablet Take 1 tablet (100 mg total) by mouth in the morning and 1 tablet (100 mg total) before bedtime. LORazepam (ATIVAN) 1 mg tablet Take 1 tablet (1 mg total) by mouth every 8 (eight) hours as needed for anxiety (nausea and vomiting). losartan (COZAAR) 25 mg tablet Take 1 tablet (25 mg total) by mouth in the morning. metoprolol tartrate (LOPRESSOR) 100 mg tablet Take 1 tablet (100 mg total) by mouth in the morning. multivitamin (MEN'S MULTI-VITAMIN) tablet Take 1 tablet by mouth in the morning. naproxen sodium (ALEVE) 220 mg tablet Take 2 tablets (440 mg total) by mouth in the morning and 2 tablets (440 mg total) in the evening. Take with meals. ondansetron (ZOFRAN) 8 mg tablet Starting on day 3, take 1 tablet by mouth twice daily as needed for severe nausea or vomiting. prochlorperazine (COMPAZINE) 10 mg tablet TAKE ONE TABLET BY MOUTH EVERY 6 HOURS NEEDED FOR NAUSEA AND/OR VOMITING prochlorperazine (COMPAZINE) 10 mg tablet Take 1 tablet by mouth every 6 hours as needed for mild nausea or vomiting. spironolactone (ALDACTONE) 50 mg tablet Take 1 tablet (50 mg total) by mouth in the morning. 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 . Procedure : routine PET/CT using F-18 FDG and imaging from the skull base to the mid thigh. Comparison : January 12 Findings: Images of the neck show no suspicious activity. Activity along the larynx is typically considered physiologic Activity along the tonsillar region and sublingual region and left greater than right posterior paraspinal musculature also thought likely to be physiologic There is a hypermetabolic lymph node in the medial left supraclavicular fossa, 6.5 SUV. This looks new There is some minor activity again seen in the thyroid region probably not significantly changed, including a small hypermetabolic nodular focus in the inferior aspect of the left thyroid lobe Images of the chest show several new hypermetabolic nodular abnormalities in the left lung including the left hilum, measuring 5 SUV-11.5 SUV, somewhat more confluent and extensive in the left lower lobe There is what looks like significant pneumonitis in the right lung particularly the superior perihilar region and right upper lobe and superior extent of the right lower lobe with some nonspecific activity in this area. Much of this may be therapy related and reactive. There is however significant increase and more intense focal nodular activity separate from the concerning for progression of multifocal neoplasm throughout the right lung and pleural space. Multifocal nodular areas now in the right base greatest adjacent to the right heart border measuring up to around 3 cm and 12 SUV. Small peripheral nodule with hypermetabolic activity in the right upper lobe measures about 2 cm and 11 SUV The previous large hypermetabolic mass in the superior right hilum looks decreased but shows significant masslike activity measuring around 35 mm and 8 SUV consistent with residual active neoplasm It looks like there may be some pleural or pericardial involvement along the right heart border There is what is thought to be physiologic left ventricular activity along the lateral wall and relative photopenic appearance of the left ventricular apex and septum. Correlate for abnormal EKG or evidence for prior myocardial infarction Images of the abdomen and pelvis show a new hypermetabolic lymph node in the left celiac region measuring 11 SUV. There is also a similar hypermetabolic lymph node now in the right retrocrural region measuring 9 SUV There is no other suspicious activity in the abdomen/pelvis Midline pelvic activity is thought likely to be related to the urinary bladder rather than prostate Anorectal activity typically considered physiologic Subtle activity in the lumbar spine concerning for metastases. Some activity in the proximal femoral regions and both hips is more indeterminate IMPRESSION: Findings consistent with significant progression of metastatic disease There is new multifocal hypermetabolic nodular disease throughout the left lower lobe, left hilum, slightly less in the left upper lobe, and the medial left supraclavicular fossa There is residual hypermetabolic masslike disease in the superior right hilum or right lower paratracheal region with adjacent low-level activity related to the posttherapy pneumonitis There is also new multifocal nodular or masslike areas of activity in the periphery of the right upper lobe and in the right lung base and along the medial pleural reflection or pericardium There is new hypermetabolic lymphadenopathy in the left celiac and right retrocrural region and subtle bone disease in the lumbar spine There is more equivocal activity in the proximal femoral/hip regions, possibly physiologic/reactive. Pelvic MRI or bone scan correlation might be useful particularly if symptomatic ---- Finalized by Leighann Godoy MD on 06/04/2024 8:46 AM Assessment/Plan: 1. Chronic HFrEF (heart failure with reduced ejection fraction) ([facility]) 2. Anxiety 3. Stage IV squamous cell carcinoma of lung, unspecified laterality ([facility]) Chronic HFrEF (heart failure with reduced ejection fraction) ([facility]) Symptoms of congestive heart failure absent and patient tolerating medications well. Continue with spironolactone 50 mg daily, metoprolol tartrate 100 mg Anxiety Anxiety symptoms reported to be controlled with medications for anxiety. Patient reports that he has been able to tolerate new regiment of chemo to this point.Communicated with Dr Keith about taking over prescribing benzodiazepine for anxiety given his history. He is willing to prescribe benzodiazepine but requested that patient only receive either lorazepam and alprazolam for treatment of anxiety. Continue to follow with oncology for treatment for stage 4 lung cancer. Follow up: 4-8 weeks for anxiety follow up - Katie Torres DO 07/01/24 10:36 PM documented in this encounter [facility] 06-28-2024 History of Present illness Narrative Faxed pt completed & physician signed [employer] [facility] [employer] application to [employer] along with copy of pt drivers license. documented in this encounter [facility] 06-26-2024 History of Present illness Narrative Met with pt regarding Distress Screening. Pt relayed he runs short on food. Encouraged pt to reapply for SNAP benefit to determine if he/family would qualify since son aged out. Pt agreeable to [facility] bag & list of area food resources. Pt unsure if he has used up or last time used [employer] [facility], agreeable to documentation writer calling [employer] to make inquiry. Call to Massiel at [employer], pt was eligible to use fund again last September. Provided pt application which he completed, documentation writer placed in physician folder for signature & will then fax. Pt has medical transportation available through insurance provider. Pt thanked documentation writer for resources. Opportunity provided to ask questions, pt does not endorse any at this time; documentation writer available & following. documented in this encounter [facility] 06-26-2024 History of Present illness Narrative Patient is here for C1 Gemzar and Carboplatin. He has had carbo before but gemzar is new. Teaching completed on gemzar and treatment plan. Scripts reviewed. Baseline toxicity assessment as charted. Labs reviewed. He feels well today/ edwardo dry cough and mild shortness of breath. Denies fevers or infection. Consent signed. Port accessed per protocol. NS started at KVO. IV premed given. Gemzar infused over 30 minutes. Carboplatin infused over 30 minutes. Patient tolerated entire treatment well without issues. Port flushed and deaccessed, band aide applied. Patient educated on discharge instructions. Treatment calendar reviewed. Patient discharged in stable condition. documented in this encounter [facility] 06-25-2024 History of Present illness Narrative Port draw completed per protocol and patient tolerated well. Declined to stay accessed for treatment tomorrow. documented in this encounter [facility] 06-14-2024 History of Present illness Narrative Images from the original note were not included. [facility] [address] [place] [id number] Patient: Arvin Julien Date of : 1980 Encounter Date: 06/14/2024 Subjective: Chief Complaint Chief Complaint Patient presents with Establish Care History of Present Illness Arvin Julien is a 44 y.o. male, NEW PATIENT, that presents to the office to establish care. History provided by patient. Patient's mother was also present during exam. Has stage 4 lung cancer with metastasis. Has been following with oncology and receiving chemotherapy. Currently on hold as trying to new chemotherapy regiment approved. Patient states that he has been off chemotherapy for a couple of months so that he was able to get the pacemaker placed. Findings from PET scan on June 01, 2024 show: Findings consistent with significant progression of metastatic disease There is new multifocal hypermetabolic nodular disease throughout the left lower lobe, left hilum, slightly less in the left upper lobe, and the medial left supraclavicular fossa There is residual hypermetabolic masslike disease in the superior right hilum or right lower paratracheal region with adjacent low-level activity related to the posttherapy pneumonitis There is also new multifocal nodular or masslike areas of activity in the periphery of the right upper lobe and in the right lung base and along the medial pleural reflection or pericardium There is new hypermetabolic lymphadenopathy in the left celiac and right retrocrural region and subtle bone disease in the lumbar spine Patient is aware of the findings and states that he has accepted he is dying. He stated that he does want to continue with the treatment. He is asking about counseling services. He states that the 1 mg every 8 hours as needed for anxiety as well as alprazolam mg at bedtime has really helped control his anxiety symptoms related to his significant health situation. Review of Systems Review of Systems Cardiovascular: He states that since having pacemaker placed he as been feel less tired and having less shortness of breath. Patient has been treated for atrial fibrillation. He is currently on blood thinner Psychiatric/Behavioral: Has been taking alprazolam for anxiety which he states is very effective. He is taking lorazepam nightly for sleep. He states that chemo worsens anxiety Vital Signs BP 140/84 (BP Site: Left Arm, BP Postition: Sitting) Pulse 80 Temp 36.5 C (97.7 F) (Oral) Ht 192 cm (6' 3.59 ) Wt 118.9 kg (262 lb 3.2 oz) SpO2 97% BMI 32.26 kg/m Physical Exam Physical Exam Vitals reviewed. Constitutional: General: He is not in acute distress. Appearance: He is not ill-appearing or toxic-appearing. HENT: Head: Normocephalic. Salivary Glands: Right salivary gland is not diffusely enlarged or tender. Left salivary gland is not diffusely enlarged or tender. Mouth/Throat: Lips: [place]. No lesions. Mouth: Mucous membranes are moist. Pharynx: Oropharynx is clear. No pharyngeal swelling, oropharyngeal exudate, posterior oropharyngeal erythema, uvula swelling or postnasal drip. Tonsils: No tonsillar exudate or tonsillar abscesses. Cardiovascular: Rate and Rhythm: Normal rate and regular rhythm. Pulses: Posterior tibial pulses are 2+ on the right side and 2+ on the left side. Heart sounds: No murmur heard. Pulmonary: Effort: Pulmonary effort is normal. No accessory muscle usage or respiratory distress. Breath sounds: Examination of the right-middle field reveals wheezing. Examination of the left-middle field reveals wheezing. Examination of the right-lower field reveals wheezing. Examination of the left-lower field reveals wheezing. Wheezing present. No decreased breath sounds, rhonchi or rales. Abdominal: General: Bowel sounds are normal. There is no distension. Palpations: Abdomen is soft. Musculoskeletal: Cervical back: Neck supple. Right lower leg: No edema. Left lower leg: No edema. Lymphadenopathy: Cervical: No cervical adenopathy. Right cervical: No superficial, deep or posterior cervical adenopathy. Left cervical: No superficial, deep or posterior cervical adenopathy. Skin: Past Medical, Family, Surgery and Social History Past Medical History: Diagnosis Date Anxiety Hypertension Lung cancer (CMS-HCC) Shortness of breath Sleep apnea Visual impairment glasses Past Surgical History: Procedure Laterality Date CARDIAC PACEMAKER PLACEMENT 03/14/2024 PORTACATH PLACEMENT RELEASE CARPAL TUNNEL Left 11/20/2019 Performed by Carlee Rodriguez Jr., DO at [facility] RELEASE CARPAL TUNNEL Right 09/25/2019 Performed by Carlee Rodriguez Jr., DO at [facility] TONSILLECTOMY UVULOPALATOPHARYNGOPLASTY, BILATERAL INTERMURAL CAUTERY INFERIOR TURBINATES,OUTFRACTURES N/A 02/08/2017 Performed by Shira Patterson MD at [facility] Family History Problem Relation Age of Onset Heart disease Mother Hypertension Mother Heart disease Father Social History Socioeconomic History Marital status: Spouse name: Not on file Number of children: Not on file Years of education: Not on file Highest education level: Not on file Occupational History Not on file Tobacco Use Smoking status: Former Current packs/day: 1.00 Types: Cigarettes Smokeless tobacco: Never Vaping Use Vaping status: Never Used Substance and Sexual Activity Alcohol use: No Drug use: Not Currently Comment: former Sexual activity: Defer Other Topics Concern Not on file Social History Narrative Not on file Social Drivers of Health Financial Resource Strain: Low Risk (11/30/2023) Received from [facility] Overall Financial Resource Strain (CARDIA) Difficulty of Paying Living Expenses: Not hard at all Recent Concern: Financial Resource Strain - High Risk (09/09/2023) Overall Financial Resource Strain (CARDIA) Difficulty of Paying Living Expenses: Hard Food Insecurity: No Food Insecurity (06/14/2024) Hunger Screening Food Insecurity - Worry: Never True Food Insecurity - Inability: Never True Transportation Needs: No Transportation Needs (11/30/2023) Received from [facility] Transportation In the past 12 months, has lack of transportation kept you from medical appointments or from getting medications?: No Lack of Transportation (Non-Medical): Not on file Physical Activity: Insufficiently Active (11/30/2023) Received from [facility] Exercise Vital Sign Days of Exercise per Week: 3 days Minutes of Exercise per Session: 30 min Stress: Not on file Social Connections: Not on file Interpersonal Safety: Unknown (11/30/2023) Received from [facility] Humiliation, Afraid, Rape, and Kick questionnaire Fear of Current or Ex-Partner: No Emotionally Abused: Not on file Physically Abused: Not on file Sexually Abused: Not on file Housing Instability: Low Risk (11/30/2023) Received from [facility] Housing Stability Vital Sign Unable to Pay for Housing in the Last Year: Not on file Number of Places Lived in the Last Year: Not on file In the last 12 months, was there a time when you did not have a steady place to sleep or slept in a longterm (including now)?: No Allergies and Current Medications Allergies Allergen Reactions Celecoxib Other reaction(s): GI Distress, Hives Metaxalone Other reaction(s): GI Distress Other Nausea And Vomiting and Other (See Comments) Other reaction(s): Hives Darvocet N 100 Current Outpatient Medications on File Prior to Visit Medication Sig albuterol (PROVENTIL HFA;VENTOLIN HFA) 90 mcg/actuation inhaler Inhale 2 puffs every 6 (six) hours as needed for wheezing. ALPRAZolam (XANAX) 1 mg tablet Take 1 tablet (1 mg total) by mouth in the morning and at bedtime. amiodarone (PACERONE) 200 mg tablet Take 1 tablet (200 mg total) by mouth in the morning. apixaban (ELIQUIS) 5 mg tablet Take 1 tablet (5 mg total) by mouth in the morning and 1 tablet (5 mg total) before bedtime. buprenorphine-naloxone (SUBOXONE) 8-2 mg per SL tablet Place 1 tablet under the tongue in the morning and 1 tablet before bedtime. dapagliflozin propanediol (FARXIGA) 10 mg tablet Take 1 tablet (10 mg total) by mouth in the morning. LORazepam (ATIVAN) 1 mg tablet Take 1 tablet (1 mg total) by mouth every 8 (eight) hours as needed for anxiety (nausea and vomiting). losartan (COZAAR) 25 mg tablet Take 1 tablet (25 mg total) by mouth in the morning. metoprolol tartrate (LOPRESSOR) 100 mg tablet Take 1 tablet (100 mg total) by mouth in the morning. multivitamin (MEN'S MULTI-VITAMIN) tablet Take 1 tablet by mouth in the morning. naproxen sodium (ALEVE) 220 mg tablet Take 2 tablets (440 mg total) by mouth in the morning and 2 tablets (440 mg total) in the evening. Take with meals. prochlorperazine (COMPAZINE) 10 mg tablet TAKE ONE TABLET BY MOUTH EVERY 6 HOURS NEEDED FOR NAUSEA AND/OR VOMITING spironolactone (ALDACTONE) 50 mg tablet Take 1 tablet (50 mg total) by mouth in the morning. Current Facility-Administered Medications on File Prior to Visit Medication heparin, porcine (PF) syringe 500 Units sodium chloride 0.9 % flush 20 mL Labs and Imaging Lab Results Component Value Date WBC 2.6 (L) 04/23/2024 HGB 12.4 (L) 04/23/2024 HCT 36.3 (L) 04/23/2024 PLT 167 04/23/2024 ALT 26 04/23/2024 AST 25 04/23/2024 K 4.2 04/23/2024 CL 103 04/23/2024 CREATININE 0.89 04/23/2024 BUN 8 04/23/2024 CO2 25 04/23/2024 TSH 0.63 08/05/[address] skull to thigh History : 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); 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) Patient Dose: 14.0 mCi FDG Inj Site: left hand Patient educated: yes Patient glucose: 109 Patient cancer diagnosis: Recent surgery: lung Is patient in chemotherapy: yes Is patient in radiation therapy: yes Does patient have an infection: no Uptake time: 60 minutes ? . Procedure : routine PET/CT using F-18 FDG and imaging from the skull base to the mid thigh. Comparison : January 12 Findings: Images of the neck show no suspicious activity. Activity along the larynx is typically considered physiologic Activity along the tonsillar region and sublingual region and left greater than right posterior paraspinal musculature also thought likely to be physiologic There is a hypermetabolic lymph node in the medial left supraclavicular fossa, 6.5 SUV. This looks new There is some minor activity again seen in the thyroid region probably not significantly changed, including a small hypermetabolic nodular focus in the inferior aspect of the left thyroid lobe Images of the chest show several new hypermetabolic nodular abnormalities in the left lung including the left hilum, measuring 5 SUV-11.5 SUV, somewhat more confluent and extensive in the left lower lobe There is what looks like significant pneumonitis in the right lung particularly the superior perihilar region and right upper lobe and superior extent of the right lower lobe with some nonspecific activity in this area. Much of this may be therapy related and reactive. There is however significant increase and more intense focal nodular activity separate from the concerning for progression of multifocal neoplasm throughout the right lung and pleural space. Multifocal nodular areas now in the right base greatest adjacent to the right heart border measuring up to around 3 cm and 12 SUV. Small peripheral nodule with hypermetabolic activity in the right upper lobe measures about 2 cm and 11 SUV The previous large hypermetabolic mass in the superior right hilum looks decreased but shows significant masslike activity measuring around 35 mm and 8 SUV consistent with residual active neoplasm It looks like there may be some pleural or pericardial involvement along the right heart border There is what is thought to be physiologic left ventricular activity along the lateral wall and relative photopenic appearance of the left ventricular apex and septum. Correlate for abnormal EKG or evidence for prior myocardial infarction Images of the abdomen and pelvis show a new hypermetabolic lymph node in the left celiac region measuring 11 SUV. There is also a similar hypermetabolic lymph node now in the right retrocrural region measuring 9 SUV There is no other suspicious activity in the abdomen/pelvis Midline pelvic activity is thought likely to be related to the urinary bladder rather than prostate Anorectal activity typically considered physiologic Subtle activity in the lumbar spine concerning for metastases. Some activity in the proximal femoral regions and both hips is more indeterminate IMPRESSION: Findings consistent with significant progression of metastatic disease There is new multifocal hypermetabolic nodular disease throughout the left lower lobe, left hilum, slightly less in the left upper lobe, and the medial left supraclavicular fossa There is residual hypermetabolic masslike disease in the superior right hilum or right lower paratracheal region with adjacent low-level activity related to the posttherapy pneumonitis There is also new multifocal nodular or masslike areas of activity in the periphery of the right upper lobe and in the right lung base and along the medial pleural reflection or pericardium There is new hypermetabolic lymphadenopathy in the left celiac and right retrocrural region and subtle bone disease in the lumbar spine There is more equivocal activity in the proximal femoral/hip regions, possibly physiologic/reactive. Pelvic MRI or bone scan correlation might be useful particularly if symptomatic ---- Finalized by Leighann Godoy MD on 06/04/2024 8:46 AM Assessment/Plan: 1. Metastatic non-small cell lung cancer (CMS-HCC) - UpToDate - Palliative Care (Video) - Ambulatory referral to Palliative Medicine Home Visits (Non-[facility]); Future Patient continue to follow with oncology for treatment for Lung cancer. Discussed with patient and his mother about referral to palliative care to help with the management of his anxiety related to his health as well as aid with treatment options for lifestyle for patient. We discussed that additional services like counseling and chronic disease management are supported through palliative care. Patient given video to watch as was undecided at the time of the appointment. If interested in palliative care referral will be placed. Follow-up: 2 to 3 weeks - Katie Torres DO 06/15/24 2:09 PM documented in this encounter [facility] 06-06-2024 Note SUBJECTIVE Reason for Visit: Arvin Julien is a 44 y.o. year old male patient being seen for follow-up visit status post AV node ablation on 05/07/2024. HPI: Arvin Julien is a 44 y.o. year old male with significant medical history of paroxysmal atrial fibrillation, previously cardioverted, including most recently during a hospitalization at [facility] in October 2023 for pneumonia. He also has stage IV lung cancer and was undergoing chemoradiation, with a history of HFrEF, former smoker. He presented to discuss atrial fibrillation management as recommended by Dr. Schafer. He reported not being in sinus rhythm for several months and had undergone cardioversion again on 12/09/23 but was found to be back in atrial fibrillation at his most recent outpatient follow-up. He was highly symptomatic at the time, endorsing dizziness, lightheadedness, and fatigue. Spironolactone had been reduced to 25 mg at his November 2023 visit. He denied chest pain but reported occasional palpitations and intermittent episodes of epistaxis. He is now status post leadless pacemaker [employer] MICRA 03/14/2024. He is status post AV node ablation 05/07/2024. 06/06/2024 office visit: Patient was seen and evaluated in the office today status post AV node ablation.. He reports feeling well overall with no current complaints. He denies chest pain, palpitations, lightheadedness, or dizziness. He endorses stable shortness of breath that has not worsened. Chemotherapy is scheduled to resume next week after being temporarily held for AV node ablation. Past Medical History: Diagnosis Date Abnormal ECG Anxiety Arrhythmia Atrial fibrillation (CMS/HCC) Cancer (CMS/HCC) Drug abuse (CMS/HCC) GERD (gastroesophageal reflux disease) Hypertension Irregular heart beat Pulmonary mass Shortness of breath Sleep apnea USES C-PAP Past Surgical History: Procedure Laterality Date ABLATION OF DYSRHYTHMIC FOCUS CARDIOVERSION CARPAL TUNNEL RELEASE Bilateral 2020 TONSILLECTOMY UVULOPALATOPHARYNGOPLASTY 01/2017 Patient Active Problem List Diagnosis Lung mass Primary lung cancer with metastasis from lung to other site, right (CMS/HCC) Community acquired pneumonia, bilateral Squamous cell carcinoma of lung, stage IV (CMS/HCC) Chronic atrial fibrillation (CMS/HCC) Acute on chronic heart failure with preserved ejection fraction (CMS/HCC) Atrial fibrillation with rapid ventricular response (CMS/HCC) Hypomagnesemia Hypoalbuminemia Other specified anemias Chronic HFrEF (heart failure with reduced ejection fraction) (CMS/HCC) Primary hypertension Obesity (BMI 30-39.9) Paroxysmal atrial fibrillation (CMS/HCC) Persistent atrial fibrillation (CMS/HCC) Aching headache Chest pain [place] (dyspnea on exertion) Shortness of breath Former smoker Hemoptysis High risk medication use Hyperglycemia Leg edema Lung cancer (CMS/HCC) Muscle cramp 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/HCC) Obstructive sleep apnea Pre-diabetes Smoking greater than 20 pack years Metastatic non-small cell lung cancer (CMS/HCC) Anxiety family history includes Heart disease in his brother and father; Heart failure in his brother and father; No Known Problems in his mother. Social History Tobacco Use Smoking status: Former Current packs/day: 0.00 Average packs/day: 2.0 packs/day for 30.0 years (60.0 ttl pk-yrs) Types: Cigarettes Start date: 04/1992 Quit date: 04/2022 Years since quittin.1 Passive exposure: Past Smokeless tobacco: Current Types: Chew Vaping Use Vaping status: Never Used Substance Use Topics Alcohol use: Not Currently Drug use: Yes Types: Heroin, Marijuana Comment: Quit 2014 using Heroin, Takes Edibles daily OBJECTIVE Visit Vitals BP 95/66 (BP Location: Left arm, Patient Position: Sitting) Pulse 81 Ht 1.854 m (6' 1 ) Wt 127 kg (279 lb) SpO2 96% BMI 36.81 kg/m??? Smoking Status Former BSA 2.56 m??? Physical Exam Constitutional: General Appearance: well-developed, appears stated age. Level of Distress: no acute distress. Neck: Jugular Veins: normal jugular venous pressure. Lungs: Auscultation: no rales or rhonchi and normal breath sounds. Cardiovascular: Rate And Rhythm: regular Heart Sounds: normal S1 and s2; Systolic Murmur: not heard. Diastolic Murmur: not heard. Extremities: Trace LE edema Peripheral Pulses: Pulses: full and equal in all extremities except if noted. Abdomen: Inspection and Palpation: non distended or tender and soft. Musculoskeletal: Inspection: no joint tenderness or swelling. Neurologic: Gait: normal gait. Psychiatric: Mental Status: alert and normal affect. Skin: Inspection and Palpation: warm and dry. Allergies: Allergies Allergen Reactions Celecoxib GI intolerance and Hives Other reaction(s): GI Distress, Hives Outpatient Medications: Current Outpatient Medications Medic (more content not included)... [facility] 06-05-2024 History of Present illness Narrative Patient is here for follow up with Dr. Gonzalez. Plan to switch tx to carbo/gemzar, given onclink info. Start leandra. Will need to F/u with Dr. Gonzalez after 2 tx. Will call to schedule upon insurance approval. documented in this encounter [facility] 06-05-2024 History of Present illness Narrative Images from the original note were not included. [facility] 06/05/24 Arvin Julien is a 44 y.o. year old male seen today in the oncology clinic. Chief Complaint Patient presents with Follow-up History of Present Illness: Mr. Julien is a 44 y.o. 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 He was status post 4 cycles of carboplatin/paclitaxel, carboplatin with AUC of 6. After 4 cycles of combined treatment, he was maintained on Keytruda only. October 2022 showed excellent response to treatment. Unfortunately February 2023 showed [...] carboplatin/Abraxane. Palliative radiation to the chest 01/2024- Interval history: Unfortunately the patient was told [...] carboplatin, last treatment was in April 2024. He is planning to have a cardiology follow-up tomorrow. He complains about severe anxiety lately, Ativan helped, Xanax works the best. Breathing is better no significant shortness of breath. No headaches or vision change. Past Medical History: Diagnosis Date Anxiety Hypertension Lung cancer (CMS-HCC) Shortness of breath Sleep apnea Visual impairment glasses Past Surgical History: Procedure Laterality Date CARDIAC PACEMAKER PLACEMENT 03/14/2024 PORTACATH PLACEMENT RELEASE CARPAL TUNNEL Left 11/20/2019 Performed by Carlee Rodriguez Jr., DO at [facility] RELEASE CARPAL TUNNEL Right 09/25/2019 Performed by Carlee Rodriguez Jr., DO at [facility] TONSILLECTOMY UVULOPALATOPHARYNGOPLASTY, BILATERAL INTERMURAL CAUTERY INFERIOR TURBINATES,OUTFRACTURES N/A 02/08/2017 Performed by Shira Patterson MD at [facility] Family History Problem Relation Age of Onset Heart disease Mother Hypertension Mother Heart disease Father Social History Socioeconomic History Marital status: Tobacco Use Smoking status: Former Current packs/day: 1.00 Types: Cigarettes Smokeless tobacco: Never Vaping Use Vaping status: Never Used Substance and Sexual Activity Alcohol use: No Drug use: Not Currently Comment: former Sexual activity: Defer Social Drivers of Health Financial Resource Strain: Low Risk (11/30/2023) Received from [facility] Overall Financial Resource Strain (CARDIA) Difficulty of Paying Living Expenses: Not hard at all Recent Concern: Financial Resource Strain - High Risk (09/09/2023) Overall Financial Resource Strain (CARDIA) Difficulty of Paying Living Expenses: Hard Food Insecurity: No Food Insecurity (11/30/2023) Received from [facility] Hunger Vital Sign Within the past 12 months, you worried that your food would run out before you got the money to buy more.: Never true Recent Concern: Food Insecurity - Food Insecurity Present (09/09/2023) Hunger Screening Food Insecurity - Worry: Often True Food Insecurity - Inability: Often True Transportation Needs: No Transportation Needs (11/30/2023) Received from [facility] Transportation In the past 12 months, has lack of transportation kept you from medical appointments or from getting medications?: No Physical Activity: Insufficiently Active (11/30/2023) Received from [facility] Exercise Vital Sign Days of Exercise per Week: 3 days Minutes of Exercise per Session: 30 min Interpersonal Safety: Unknown (11/30/2023) Received from [facility] Humiliation, Afraid, Rape, and Kick questionnaire Fear of Current or Ex-Partner: No Housing Instability: Low Risk (11/30/2023) Received from [facility] Housing Stability Vital Sign In the last 12 months, was there a time when you did not have a steady place to sleep or slept in a longterm (including now)?: No Allergies Allergen Reactions Celecoxib Other reaction(s): GI Distress, Hives Metaxalone Other reaction(s): GI Distress Other Nausea And Vomiting and Other (See Comments) Other reaction(s): Hives Darvocet N 100 Medication List Accurate as of June 05, 2024 2:39 PM. If you have any questions, ask your nurse or doctor. 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) Dose: 1 mg Signed by: Connor Gonzalez 1 mg, oral, 2 times daily Commonly known as: XANAX amiodarone 200 mg tablet Refills: 0 Dose: 200 mg Commonly known as: PACERONE apixaban 5 mg tablet Quantity: 60 tablet Refills: 11 For diagnoses: Abnormal heart rhythm Dose: 5 mg Signed by: Marie Wooten APRN-BLANK DRILLER 5 mg, oral, 2 times daily Commonly known as: EVY buprenorphine-naloxone 8-2 mg per SL tablet Refills: 0 Dose: 1 tablet Commonly known as: SUBOXONE dexAMETHasone 4 mg tablet Quantity: 60 tablet Refills: 2 For diagnoses: 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) Dose: 1 mg Signed by: Connor Gonzalez 1 mg, oral, Every 8 hours PRN Commonly known as: ATIVAN losartan 25 mg tablet Refills: 0 Dose: 25 mg Commonly known as: COZAAR MEN'S MULTI-VITAMIN tablet Refills: 0 Dose: 1 tablet Generic drug: multivitamin metoprolol tartrate 100 mg tablet Refills: 0 Dose: 100 mg Commonly known as: LOPRESSOR prochlorperazine 10 mg tablet Quantity: 30 tablet Refills: 0 Signed by: Connor Gonzalez TAKE ONE TABLET BY MOUTH EVERY 6 HOURS NEEDED FOR NAUSEA AND/OR VOMITING Commonly known as: COMPAZINE spironolactone 50 mg tablet Refills: 0 Dose: 50 mg Commonly known as: ALDACTONE Review of Symptoms: Review of Systems ECO- Symptomatic; in bed <50% of the day Physical Exam: General: Well appearing, in no acute distress. Vitals: BP 125/79 Pulse 83 Temp 36.7 C (98 F) (Oral) Resp 16 Ht 185.4 cm (6' 0.99 ) Wt 117.7 kg (259 lb 6.4 oz) SpO2 97% BMI 34.23 kg/m Body mass index is 34.23 kg/m . Eyes: No icterus, no conjuctival erythema ENT: Pharyngeal mucosa was moist without exudate and inflammation or ulcerations. Tongue was midline and appeared normal.Gums were unremarkable. Lymph nodes: No palpable adenopathy Neck: Supple. There were no masses, tenderness. Trachea was midline. Respiratory: Respirations were non-labored. Lungs were clear to auscultation. There was no dullness to percussion. Cardiac: Regular rate and rhythm, S1 [...] technologist's notes above Consent/pre-procedure evaluation: See below. Drummond protocol timeout verification performed. Estimated blood loss: [...] Alvin Lomeli MD on 05/31/2023 3:03 PM Recent Labs: No results found for this or any previous visit (from the past 2 weeks). 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 He received 4 cycles of carboplatin/paclitaxel/Keytruda. Carboplatin dose was AUC of 6. The patient's blood counts remains stable during the treatment. His most recent CT scan showed disease progression with enlarging mediastinal and supraclavicular lymphadenopathy. His repeat CT scan showed significant disease progression with enlarging mediastinal and hilar mass and multiple new lung nodules Patient's brain MRI [...] progression with residual hypermetabolic masslike disease in the superior right hilum or right lower paratracheal region with adjacent low-level activity related to the posttherapy pneumonitis There is also new multifocal nodular or masslike areas of activity in the periphery of the right upper lobe and in the right lung base and along the medial pleural reflection or pericardium There is new hypermetabolic lymphadenopathy in the left celiac and right retrocrural region and subtle bone disease in the lumbar spine Recently radiated area has improved. Upon disease progression consider of treatment with Carbo clark's point with gemcitabine Plan to have treatment every 2 weeks for better tolerance. Follow-up with me in 6 weeks to evaluate tolerance and response. Continue Ativan 1 mg twice a day as needed. Advise patient to establish care with psychiatry regarding his severe anxiety. Thank you. Connor Gonzalez MD Please note that portions of this note were generated using voice recognition [employer] dictation software. Although every effort was made to ensure the accuracy of this automated machine operator helper, some errors in machine operator helper may have occurred. CC: Patient Care Team: No Pcp No Pcp as PCP - General (Family Medicine) Connor Gonzalez MD as Consulting Physician (Hematology) PCP:NO PCP, NO PCP Referring MD: Addison Pérez MD documented in this encounter [facility] 06-05-2024 Instructions Connor Gonzalez MD - 06/05/2024 2:00 PM EDT Plan to switch tx to carbo/gemzar, give info. Start leandra. F/u after 2 tx. [facility] 05-07-2024 Note AV NODE ABLATION PRO CEDURE REPORT DATE OF PROCEDURE: 05/07/2024 PERFORMING PHYSICIAN: Dr. Harrison Ceja PSYCHOLOGICAL ANTHROPOLOGIST: HANG CONSENT: Patient NAME OF THE PROCEDURE: AV node ablation LOCATION: EP Lab INDICATIONS FOR PROCEDURE: 1. Atrial fibrillation with RVR. PROCEDURAL SEDATION: Versed and Fentanyl. Moderate sedation was administered by the sedation nurse under my supervision and noted in the CVL log. Intraprocedural face to face sedation time: 18 min. Monitoring: Cardiac telemetry, Blood pressure, continuous pulse oxymetry. FLUROSCOPY: NA EBL: 5cc SPECIMEN REMOVED: None PROCEDURE PERFORMED: 1. Comprehensive EP study. 2. Pre and post ablation device testing. 3. AV node ablation. 4. U/S guided venous access PROCEDURAL DETAILS: The patient was brought to the electrophysiology laboratory and continuous electrocardiographic monitoring was instituted. After a procedural pause identifying the patient, the procedure I decided to proceed following administration of antibiotics. Patient was placed in supine position. The right groin was prepped and draped. Using ultrasound guidance, the right femoral vein was identified and noted to be patent and image stored. Venous access was obtained and a short 8F sheath was placed in the right femoral vein. Irrigated 4mm thermoccol ablation catheter was then advanced to the His location. HV was 45s. At this point, I decided to just proceed with AV node ablation. The catheter was advanced to His location. His area was tagged. The catheter was advanced to the His location. I went on to perform ablation at 40watts. The catheter was flexed and ablation was performed leading to a complete heart block with junctional escape at 43bpm. At this time, I decided to stop the ablation. The device was re-programmed and thresholds were noted to have unchanged. The device was programmed VVIR at 80 beats per minute. Sheaths and catheters were removed and hemostasis was achieved. POST PROCEDURE EXAM: Patient was hemodynamically stable. COMPLICATIONS: None. IMPRESSION: 1. Successful AV Node ablation. 2. Device thresholds pre and post ablation. RECOMMENDATIONS: 1. No heavy lifting for 1 week. 2. Follow up in EP clinic in 1 month. 3. Continue anticoagulation. Harrison Ceja MD Cardiac Electrophysiology. [facility] 05-07-2024 Note Patient: Juan Luis Julien Procedure Information Date/Time: 05/07/24 1330 Procedure: AV node ablation - PC APPROVED 05/07-08/05 Location: [facility] [place] OFFICE COORDINATOR RECEPTIONIST 1 EP / [facility] (Cath) Providers: Harrison Ceja MD Clinical information reviewed: Allergies Meds Physical Exam Airway Mallampati: II TM distance: >3 FB Neck ROM: full Cardiovascular Dental Pulmonary Abdominal Anesthesia Plan ASA 3 CSE Anesthetic plan and risks discussed with patient. Use of blood products discussed with patient who. Additional Equipment Requests [facility] 04-26-2024 History of Present illness Narrative Patient is here in follow up for lung cancer with Dr. Gonzalez. Received the following orders: Hold chemo for now due to anxiety. PET 05/2024 F/u in 1 month to review PET. Order for PET placed. Follow up scheduled for 06/07/[address] Gonzalez. DAVID and PET order with central scheduling number provided to patient. He is aware that he will need to call central scheduling to set up PET scan. Patient verbalized understanding to all discharge instructions. Discharged in stable condition to private vehicle in care of his mother. documented in this encounter [facility] 04-26-2024 History of Present illness Narrative Images from the original note were not included. [facility] 04/26/24 Arvin Julien is a 44 y.o. year old male seen today in the oncology clinic. Chief Complaint Patient presents with Follow-up History of Present Illness: Mr. Julien is a 44 y.o. 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 He was status post 4 cycles of carboplatin/paclitaxel, carboplatin with AUC of 6. After 4 cycles of combined treatment, he was maintained on Keytruda only. October 2022 showed excellent response to treatment. Unfortunately February 2023 showed [...] carboplatin/Abraxane. Palliative radiation to the chest 01/2024- Interval history: Unfortunately the patient was told [...] of palliative radiation to his chest 02/2024, he has been experiencing extreme anxiety over the past several weeks, he was unable to get out of his house. He is planning to have a pacemaker check May 07. He complains about severe anxiety lately, Ativan helped, currently he is not taking any. Breathing is better no significant shortness of breath. No headaches or vision change. He also have some dull ache around his right flank area. Past Medical History: Diagnosis Date Anxiety Hypertension Lung cancer (CMS-HCC) Shortness of breath Sleep apnea Visual impairment glasses Past Surgical History: Procedure Laterality Date CARDIAC PACEMAKER PLACEMENT 03/14/2024 PORTACATH PLACEMENT RELEASE CARPAL TUNNEL Left 11/20/2019 Performed by Carlee Rodriguez Jr., at [facility] RELEASE CARPAL TUNNEL Right 09/25/2019 Performed by Carlee Rodriguez Jr., at [facility] TONSILLECTOMY UVULOPALATOPHARYNGOPLASTY, BILATERAL INTERMURAL CAUTERY INFERIOR TURBINATES,OUTFRACTURES N/A 02/08/2017 Performed by Shira Patterson MD at [facility] Family History Problem Relation Age of Onset Heart disease Mother Hypertension Mother Heart disease Father Social History Socioeconomic History Marital status: Tobacco Use Smoking status: Former Current packs/day: 1.00 Types: Cigarettes Smokeless tobacco: Never Vaping Use Vaping status: Never Used Substance and Sexual Activity Alcohol use: No Drug use: Not Currently Comment: former Sexual activity: Defer Social Drivers of Health Financial Resource Strain: Low Risk (11/30/2023) Received from [facility] Overall Financial Resource Strain (CARDIA) Difficulty of Paying Living Expenses: Not hard at all Recent Concern: Financial Resource Strain - High Risk (09/09/2023) Overall Financial Resource Strain (CARDIA) Difficulty of Paying Living Expenses: Hard Food Insecurity: No Food Insecurity (11/30/2023) Received from [facility] Hunger Vital Sign Within the past 12 months, you worried that your food would run out before you got the money to buy more.: Never true Recent Concern: Food Insecurity - Food Insecurity Present (09/09/2023) Hunger Screening Food Insecurity - Worry: Often True Food Insecurity - Inability: Often True Transportation Needs: No Transportation Needs (11/30/2023) Received from [facility] Transportation In the past 12 months, has lack of transportation kept you from medical appointments or from getting medications?: No Physical Activity: Insufficiently Active (11/30/2023) Received from [facility] Exercise Vital Sign Days of Exercise per Week: 3 days Minutes of Exercise per Session: 30 min Interpersonal Safety: Unknown (11/30/2023) Received from [facility] Humiliation, Afraid, Rape, and Kick questionnaire Fear of Current or Ex-Partner: No Housing Instability: Low Risk (11/30/2023) Received from [facility] Housing Stability Vital Sign In the last 12 months, was there a time when you did not have a steady place to sleep or slept in a longterm (including now)?: No Allergies Allergen Reactions Celecoxib Other reaction(s): GI Distress, Hives Metaxalone Other reaction(s): GI Distress Other Nausea And Vomiting and Other (See Comments) Other reaction(s): Hives Darvocet N 100 Medication List Accurate as of April 26, 2024 2:28 PM. If you have any questions, ask your nurse or doctor. 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 Cox 2 puffs, inhalation, Every 6 hours PRN Commonly known as: PROVENTIL HFA;VENTOLIN HFA ALEVE 220 mg tablet Refills: 0 Dose: 440 mg Generic drug: naproxen sodium amiodarone 200 mg tablet Refills: 0 Dose: 200 mg Commonly known as: PACERONE apixaban 5 mg tablet Quantity: 60 tablet Refills: 11 For diagnoses: Abnormal heart rhythm Dose: 5 mg Signed by: Marie Wooten SQUEEGEE OPERATOR-BLANK DRILLER 5 mg, oral, 2 times daily Commonly known as: ELIQUIS buprenorphine-naloxone 8-2 mg per SL tablet Refills: 0 Dose: 1 tablet Commonly known as: SUBOXONE dexAMETHasone 4 mg tablet Quantity: 60 tablet Refills: 2 For diagnoses: 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 Commonly known as: DECADRON FARXIGA 10 mg tablet Refills: 0 Dose: 10 mg Generic drug: dapagliflozin propanediol losartan 25 mg tablet Refills: 0 Dose: 25 mg Commonly known as: COSHIRLEYAR MEN'S MULTI-VITAMIN tablet Refills: 0 Dose: 1 tablet Generic drug: multivitamin metoprolol tartrate 100 mg tablet Refills: 0 Dose: 100 mg Commonly known as: LOPRESSOR prochlorperazine 10 mg tablet Quantity: 30 tablet Refills: 0 Signed by: Connor Gonzalez TAKE ONE TABLET BY MOUTH EVERY 6 HOURS NEEDED FOR NAUSEA AND/OR VOMITING Commonly known as: COMPAZINE spironolactone 50 mg tablet Refills: 0 Dose: 50 mg Commonly known as: ALDACTONE Review of Symptoms: Review of Systems ECO- Symptomatic; in bed <50% of the day Physical Exam: General: Well appearing, in no acute distress. Vitals: BP 137/81 Pulse 105 Resp 20 Ht 185.4 cm (6' 0.99 ) Wt 121.7 kg (268 lb 6.4 oz) SpO2 99% BMI 35.42 kg/m Body mass index is 35.42 kg/m . Eyes: No icterus, no conjuctival erythema ENT: Pharyngeal mucosa was moist without exudate and inflammation or ulcerations. Tongue was midline and appeared normal.Gums were unremarkable. Lymph nodes: No palpable adenopathy Neck: Supple. There were no masses, tenderness. Trachea was midline. Respiratory: Respirations were non-labored. Lungs were clear to auscultation. There was no dullness to percussion. Cardiac: Regular rate and rhythm, S1 [...] technologist's notes above Consent/pre-procedure evaluation: See below. Drummond protocol timeout verification performed. Estimated blood loss: [...] Alvin Lomeli MD on 05/31/2023 3:03 PM Recent Labs: Recent Results (from the past 2 weeks) CBC auto differential Collection Time: 04/23/24 12:25 PM Result Value Ref Range White Blood Cells 2.6 (L) 4.0 - 11.0 X10E9/L RBC count 4.26 4.10 - 5.70 X10E12/L Hemoglobin 12.4 (L) 13.0 - 17.0 g/dL Hematocrit 36.3 (L) 39 - 49 % MCV 85 80 - 100 fL MCH 29.0 27 - 34 pg MCHC 34.1 32 - 36 g/dL RDW 14.8 11.5 - 15.0 % Platelets 167 150 - 450 X10E9/L MPV 8.0 7 - 12 fL Seg neutrophil 71.0 % Lymphocyte 14.0 % Monocytes 11.0 % Eosinophil 2.0 % Basophil 2.0 % Lymphocyte, atypical 0.0 % Neutrophils Absolute (M) 1.7 1.5 - 6.6 X10E9/L Lymphocytes Absolute 0.4 (L) 1.0 - 3.5 X10E9/L Monocytes Absolute 0.3 0 - 0.9 X10E9/L Eosinophils Absolute 0.1 0.0 - 0.4 X10E9/L Basophils Absolute 0.1 0.0 - 0.2 X10E9/L Polychromasia 1+ (A) NONE^NONE Comprehensive metabolic panel Collection Time: 04/23/24 12:25 PM Result Value Ref Range Sodium 135 134 - 146 mmol/L Potassium, Bld 4.2 3.5 - 5.0 mmol/L Chloride 103 98 - 109 mmol/L CO2 25 22 - 32 mmol/L Anion gap 7 5 - 15 mmol/L BUN 8 5 - 23 mg/dL Creatinine 0.89 0.70 - 1.20 mg/dL Glucose 100 (H) 65 - 99 mg/dL Calcium 8.9 8.5 - 10.5 mg/dL Total Protein 6.8 6.0 - 8.0 g/dL Albumin 3.8 3.2 - 5.3 g/dL Alkaline Phosphatase 50 39 - 130 U/L AST 25 0 - 41 U/L ALT 26 0 - 40 U/L Total bilirubin 0.8 0.3 - 1.2 mg/dL eGFR (CKD-EPI)non-race dependent >90 >59 ml/min/1.73sq.m Diagnosis Problem list: Problem List Items Addressed This Visit Respiratory 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 He received 4 cycles of carboplatin/paclitaxel/Keytruda. Carboplatin dose was AUC of 6. The patient's blood counts remains stable during the treatment. His most recent CT scan showed disease progression with enlarging mediastinal and supraclavicular lymphadenopathy. His repeat CT scan showed significant disease progression with enlarging mediastinal and hilar mass and multiple new lung nodules Patient's brain MRI [...] for now due to anxiety. PET 05/2024 F/u in 1 month to review PET. Upon disease progression consider of treatment with Carbo clark's point with gemcitabine Continue Ativan 1 mg twice a day as needed. Advise patient to establish care with psychiatry regarding his severe anxiety. Thank you. Connor Gonzalez MD Please note that portions of this note were generated using voice recognition [employer] dictation software. Although every effort was made to ensure the accuracy of this automated machine operator helper, some errors in machine operator helper may have occurred. CC: Patient Care Team: No Pcp No Pcp as PCP - General (Family Medicine) Connor Gonzalez MD as Consulting Physician (Hematology) PCP:NO PCP, NO PCP Referring MD: Addison Pérez MD [facility] 04-26-2024 Instructions Connor Gonzalez MD - 04/26/2024 2:00 PM EST Hold chemo for now due to anxiety. PET 05/2024 F/u in 1 month to review PET. documented in this encounter [facility] 04-24-2024 History of Present illness Narrative Met briefly with pt, [facility] documented in this encounter [facility] 04-24-2024 History of Present illness Narrative Patient here for Abraxane Carbo Vitals wnl The patient reports feeling fine. Port accessed per protocol Brisk blood return noted Toxicity check completed with [facility] Premeds admin with out difficulty Abraxane started and completed over 30 min Followed by Carbo infused over 30 min The patient tolerated well Port flushed for de acess Patient discharged in stable condition documented [facility] 04-17-2024 Miscellaneous Notes Patient called but is going through chemotherapy about becoming a new patient. Will you accept? Not at this time Spoke to mother and she was ok with the decision. documented in this encounter [facility] 04-17-2024 Telephone encounter Note Patient called but is going through chemotherapy about becoming a new patient. Will you accept? [facility] 04-17-2024 Telephone encounter Note Not at this time [facility] Work Phone: 04-17-2024 Telephone encounter Note Spoke to mother and she was ok with the decision. [facility] 04-17-2024 Note [place] [facility] Consult Note [place] [facility] - [facility] Reason for visit: afib 04/17/24 Patient here with questions s/p [employer] Micra implant on 03/14/2024. C/o SOB w/wo exertion and palpitations. Denies chest pain and bleeding on Eliquis. Going thru chemotherapy right now. He is very anxious and restless. HPI: Arvin Julien is a 44 y.o. year old with past medical history of paroxsymal atrial fibrillation s/p cardioversion in the past and most recently while at [facility] in October 2023 when hospitalized for pneumonia, stage IV lung cancer undergoing chemoradiation, heart failure, here to discuss afib management per Dr. Schafer. Says he hasn't been out of afib for months. Patient was cardioverted on 10/18/24 and was seen back outpatient back in atrial fibrillation. Patient is very symptomatic with afib, feels dizzy/lightheaded and is fatigued. Dr. Schafer reduced spironolactone to 25mg at last visit in Nov 2023. Denies chest pain. Gets palpitations and epistaxis sometimes . PMH: Past Medical History: Diagnosis Date Abnormal ECG Anxiety Arrhythmia Atrial fibrillation (CMS/HCC) Cancer (CMS/HCC) Drug abuse (CMS/HCC) GERD (gastroesophageal reflux disease) Hypertension Irregular heart beat Pulmonary mass Shortness of breath Sleep apnea USES C-PAP PSH: Past Surgical History: Procedure Laterality Date CARDIOVERSION CARPAL TUNNEL RELEASE Bilateral 2019 TONSILLECTOMY UVULOPALATOPHARYNGOPLASTY 01/2017 SH: Social Determinants of Health Tobacco Use: Medium Risk (04/10/2024) Received from [facility] Patient History Smoking Tobacco Use: Former Smokeless Tobacco Use: Never Passive Exposure: Not on file Alcohol Use: Not At Risk (11/30/2023) AUDIT-C Frequency of Alcohol Consumption: Never Average Number of Drinks: Patient does not drink Frequency of Binge Drinking: Never Financial Resource Strain: Low Risk (11/30/2023) Overall Financial Resource Strain (CARDIA) Difficulty of Paying Living Expenses: Not hard at all Recent Concern: Financial Resource Strain - High Risk (09/09/2023) [facility] Overall Financial Resource Strain (CARDIA) Difficulty of Paying Living Expenses: Hard Food Insecurity: No Food Insecurity (11/30/2023) Hunger Vital Sign Worried About Running Out of Food in the Last Year: Never true Ran Out of Food in the Last Year: Not on file Recent Concern: Food Insecurity - Food Insecurity Present (09/09/2023) Received from [facility] Hunger Screening Within the past 12 months we worried whether our food would run out before we got money to buy more.: Often True Within the past 12 months the food we bought just didn't last and we didn't have money to get more.: Often True Transportation Needs: No Transportation Needs (11/30/2023) Transportation Lack of Transportation (Medical): No Lack of Transportation (Non-Medical): Not on file Physical Activity: Insufficiently Active (11/30/2023) Exercise Vital Sign Days of Exercise per Week: 3 days Minutes of Exercise per Session: 30 min Stress: Not on file Social Connections: Not on file Intimate Partner Violence: Unknown (11/30/2023) Humiliation, Afraid, Rape, and Kick questionnaire Fear of Current or Ex-Partner: No Emotionally Abused: Not on file Physically Abused: Not on file Sexually Abused: Not on file Depression: Not at risk (11/30/2023) PHQ-2 PHQ-2 Score: 0 Housing Stability: Low Risk (11/30/2023) Housing Stability Vital Sign Unable to Pay for Housing in the Last Year: Not on file Number of Places Lived in the Last Year: Not on file Unstable Housing in the Last Year: No Utilities: Not At Risk (11/30/2023) [facility] Utilities Threatened with loss of utilities: No Health Literacy: Not on file Allergies: Allergies Allergen Reactions Celecoxib GI intolerance and Hives Other reaction(s): GI Distress, Hives Weight: 122kg Visit Vitals BP 111/73 (BP Location: Right arm, Patient Position: Sitting) Pulse 84 Ht 1.854 m (6' 1 ) Wt 122 kg (270 lb) SpO2 96% BMI 35.62 kg/m??? Smoking Status Former BSA 2.51 m??? Meds: Current Outpatient Medications on File Prior to Visit Medication Sig Dispense Refill amiodarone (Pacerone) 200 mg tablet Take 1 tablet (200 mg) by mouth once daily as directed. 90 tablet 3 apixaban (Eliquis) 5 mg tablet Take 1 tablet (5 mg) by mouth two times daily. Do not start before March 16, 2024. 60 tablet 0 buprenorphine-naloxone (Suboxone) 8-2 mg SL film dissolve 1 FILM under the tongue twice a day dapagliflozin propanediol (Farxiga) 10 mg Take 1 tablet (10 mg) by mouth once daily as directed. 90 tablet 3 LORazepam (Ativan) 0.5 mg tablet Take 1 mg by mouth every 12 (twelve) hours if needed for anxiety. losartan (Cozaar) 25 mg tablet Take 1 tablet (25 mg) by mouth once daily as directed. 90 tablet 3 metoprolol succinate XL (Toprol-XL) 100 (more content not included)... [facility] 04-13-2024 History of Present illness Narrative Neurology referral faxed to Dr. Morocho. documented in this encounter [facility] 04-11-2024 Note Patient was in the o ffice for device check however he mentioned to the nurse that his right groin where his procedure -leadless pacemaker implant 03/14/2024-was done was hurting therefore I checked him. The right groin appears overall normal, there is a knot about 2 x 2 cm which is a little tender for palpation most likely due to scar tissue. No hematoma or swelling or bruising or redness and the site of the access healed very well. As patient complains that his right leg is hurting and it was little swelling therefore I ordered a venous Doppler study to rule out DVT which came back negative. The patient was assured and advised to take Tylenol or ibuprofen as needed to control pain [facility] 04-10-2024 History of Present illness Narrative Patient is here for Abraxane/Carboplatin infusions as scheduled. OK to proceed with treatment per Dr. Gonzalez with ANC of 1.4, patient made aware. Toxicity check completed per flowsheet data and pre chemo check completed with Alicia Maya RN. Port accessed under sterile procedure with brisk blood return verified and line flushes with ease. NS initiated as mainline at KVO rate. Patient pre medicated with IV emend, dexamethsone and aloxi and tolerated all well. Abraxane infused over 30 minutes without incident and patient tolerated well. IV flushed. Carboplatin infused over 30 minutes without incident and patient tolerated well. Upon completion, IV flushed. Port flushed via push/pause method, saline locked, de-accessed and site covered with band aid. Treatment calendar and lab result provided. Patient discharged in stable condition to our facility transporter and treatment calendar provided to transporter as well. [facility] 04-10-2024 History of Present illness Narrative Images from the original note were not included. MD Shanita Simeon RN Ok to proceed. Previous Messages ----- Message ----- From: Shanita Schwab RN Sent: 04/10/2024 7:39 AM EST To: Connor Gonzalez MD Patient is due for Abraxane/Carboplatin today but ANC is 1.4. How would you like for us to proceed? Please advise. Thank you, Armida documented in this encounter [facility] 04-09-2024 History of Present illness Narrative Port draw completed per protocol. Tolerated well. Discharged to facility transport. documented in this encounter [facility] 03-28-2024 History of Present illness Narrative Juan Luis arrives for post treatment clinic visit with Dr Nolasco; s/p Palliative course of RT 15Fx to R Lung/mediastinum copmpleted on 03/09/24 He reports significant improvement and denies pain to the treatment area He had Abraxane Carbo infusion today with next scheduled for 04/10/24 and follow up with Dr Gonzalez on 04/26/24 CT/CAP ordered to be performed in 3 months/June 2024 and follow up with [facility] for review (to be coordinated with another onsite appt if possible) documented in this encounter [facility] 03-27-2024 History of Present illness Narrative Met with pt who relayed he was really tired this day. Pt does not endorse current food insecurity. Opportunity provided to ask questions, pt does not endorse any at this time; documentation writer available & following. documented in this encounter [facility] 03-27-2024 History of Present illness Narrative Patient here for Abraxane Carbo Vitals wnl The patient reports feeling fine. Port accessed per protocol Brisk blood return noted Toxicity check completed with Osiris CARDENAS Premeds admin with out difficulty Abraxane started and completed over 30 min Followed by Carbo infused over 30 min The patient tolerated well Port flushed for de acess Patient discharged in stable condition documented in this encounter [facility] 03-26-2024 History of Present illness Narrative Port draw completed per protocol and patient tolerated well. Discharged in stable condition to facility transport. documented in this encounter [facility] 03-21-2024 History of Present illness Narrative Date of Service: 03/21/2024 Location: [facility] - RADIATION ONCOLOGY [address] [place] [id number] RADIATION ONCOLOGY TREATMENT SUMMARY Patient ID: Arvin Julien : 1980 Diagnosis: Cancer Staging No matching staging information was found for the patient. RADIATION TREATMENT INFORMATION Radiation Treatments Active Reference Points Rx rt lung media Most recent treatment: Dose given: 300 (on 02/28/2024) Total: Dose given: 4,500 Elapsed Days: 22 Historical Plans Rt Lung Mediastinum; 3D ap pa arc [Rt LungMed 3D] Most recent treatment: Dose planned: 300 (fraction 15 on 02/28/2024) Total: Dose planned: 4,500 (15 fractions) Elapsed Days: 22 Site: rt lung and mediastinum Rad TX Imaging: Weekly Port Films ENERGY: 10MV TECHNIQUE: AP, PA; 3D arc Previous Chemotherapy Treatment: Yes Concurrent Chemotherapy Regimen: No Oncology History Metastatic non-small cell lung cancer (CMS-HCC) 01/26/2024 Initial Diagnosis Metastatic non-small cell lung cancer (CMS-HCC) 01/26/2024 - 03/11/2024 Radiation Radiation Treatments Active Reference Points Rx rt lung media Most recent treatment: Dose given: 300 (on 02/28/2024) Total: Dose given: 4,500 Elapsed Days: 22 Historical Plans Rt Lung Mediastinum; 3D ap pa arc [Rt LungMed 3D] Most recent treatment: Dose planned: 300 (fraction 15 on 02/28/2024) Total: Dose planned: 4,500 (15 fractions) Elapsed Days: 22 Based upon the above, the patient opted for a course of radiotherapy. RADIATION TREATMENT COURSE AND FOLLOW-UP INSTRUCTIONS: Patient completed course without unexpected adverse effect. Patient will resume follow-up with other practitioners as planned, and with radiation oncology as outlined in last weekly treatment progress note. Maximilian Nolasco MD Radiation Oncology March 21, 2024, 11:19 AM CC:Patient Care Team: No Pcp No Pcp as PCP - General (Family Medicine) Connor Gonzalez MD as Consulting Physician (Hematology) documented in this encounter [facility] 03-14-2024 Note LEADLESS PACEMAKER ( MICRA) IMPLANT PROCEDURE NOTE DATE OF PROCEDURE: 03/14/2024 PERFORMING PHYSICIAN: Dr. Harrison Ceja CONSENT: Patient LOCATION: EP Lab PROCEDURE PERFORMED: 1. Implantation of leadless pacemaker (Medtronic MICRA). 2. Ultrasound guided venous access 3. RV angiography. INDICATIONS: 1. Persistent AF with RVR 2. Planned AV node ablation. PROCEDURAL SEDATION: Versed and Fentanyl. Moderate sedation was administered by the sedation nurse under my supervision and noted in the CVL log. Intraprocedural face to face sedation time: 34 min. Monitoring: Cardiac telemetry, Blood pressure, continuous pulse oxymetry. FLUOROSCOPY TIME: 5.4min/ 28mGray PREPARATION: Patient was brought to the EP lab in the post absorptive state. A procedural pause was performed identifying the patient, the procedure to be performed and the site of implant. The groins was prepped and draped in the usual sterile fashion. Preoperative antibiotics IV Ancef was administered. PROCEDURAL DETAILS: Patient was placed in trendelenberg position and ultrasound was used to evaluate the patency of both femoral veins and for venous access. Once she was cleaned and draped, venous access was procured under ultrasound guidance. ICE catheter was advanced via RFV via 9F sheath and baseline images were taken. No pericardial effusion was seen at baseline. An 8-[place] sheath was placed on the the right side under ultrasound guidance, the venous access was procured. Dr. Theron Fuller then proceeded to place 2 Perclose sutures. Following the access, an 8-[place] sheath was placed, which was sequentially upsized from 10-18 and thereafter 27-[place] sheath. After that Micra sheath was advanced under fluoroscopic guidance until it reached the mid RA. Once the sheath was secured in position, the Micra pacemaker system was flushed to ensurethere was no air bubble. Under continuous flush, the apparatus checked, and thereafter this was advanced through the outer sheath into the RA. Following this, the Micra pacing system was advanced into the mid RA and thereafter anteflexion was performed for the lead system to traverse the tricuspid valve. Initially, we moved the device system to an RV apex where RV angiogram was performed to confirm that it was in septal location. I decided to reposition to see whether we can go more septal and slightly higher. Although the thresholds were less than 1 V. The pacing system was advanced into the RV mid septum confirmed with angiography and ICE imaging and thereafter the lead was deployed. Tug testing was done, which confirmed at least 2 of the flanges adequately moving with the tug and thresholds noted to be less than 0.5V at 0.24 millisecond pulse width. The outer sheath was pulled back and tug testing was repeated and at this time, a repeat threshold check revealed the ventricular threshold to be good. We decided to go ahead with this location and the tethers were cut and sutures were removed. Subsequently, the outer sheaths were removedand Dr. Theron Fuller performed Perclose stitch to ensure the venous suture was placed adequately. The Perclose suture site was subsequently closed with glue and steristrip. Hemostasis was confirmed. ICE confirmed the absence of any pericardial effusion and a good location in the RV mid septum. Lead parameters were then rechecked through the device as noted below. The patient was returned to the short stay room for post procedural observation. No immediate procedural complications were noted. POST PROCEDURE EXAM: Patient was hemodynamically stable. COMPLICATIONS: None. ESTIMATED BLOOD LOSS: 20cc IMPRESSION: 1. Successful single chamber leadless pacemaker: Micra AV with excellent pacing and sensing parameters. RECOMMENDATIONS: 1. No lifting heavy weights x 1week 2. F/u in device clinic 1 week from discharge or sooner for any concerns. 3. Doxycycline 100mg bid x 2 weeks. Harrison Ceja MD Cardiac Electrophysiology [facility] 03-14-2024 Note RECOMMENDATIONS: 1. No lifting heavy weights x 1week 2. F/u in device clinic 1 week from discharge or sooner for any concerns. 3. Doxycycline 100mg bid x 2 weeks. [facility] 03-14-2024 Note Patient: Juan Luis Julien Procedure Information Date/Time: 03/14/24 1230 Procedure: Implant PPM leadless Location: [facility] OFFICE COORDINATOR RECEPTIONIST 1 / [facility] (Cath) Providers: Harrison Ceja MD Clinical information reviewed: Allergies Meds Physical Exam Airway Mallampati: II TM distance: >3 FB Cardiovascular Dental Pulmonary Abdominal Anesthesia Plan ASA 3 CSE Anesthetic plan and risks discussed with patient. Use of blood products discussed with patient who. Additional Equipment Requests [facility] 03-12-2024 History of Present illness Narrative The patient was here the for follow up with Dr Gonzalez. He is going to have a pacemaker placed this month, Patient will resume chemo in Mar. documented in this encounter [facility] 03-09-2024 History of Present illness Narrative Images from the original note were not included. [facility] 03/09/24 Arvin Julien is a 44 y.o. year old male seen today in the oncology clinic. Chief Complaint Patient presents with Follow-up History of Present Illness: Mr. Julien is a 44 y.o. 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 He was status post 4 cycles of carboplatin/paclitaxel, carboplatin with AUC of 6. After 4 cycles of combined treatment, he was maintained on Keytruda only. October 2022 showed excellent response to treatment. Unfortunately February 2023 showed [...] carboplatin/Abraxane. Palliative radiation to the chest 01/2024- Interval history: Unfortunately the patient was told [...] a course of palliative radiation to his chest, complains about nausea, fatigue and irritation, over the past few days it started to settle down. After diuresis his swelling is getting much better baseline weight is down from 285 to 277 lb. He complains about severe anxiety lately, Ativan helped. Breathing is better no significant shortness of breath. No headaches or vision change. Past Medical History: Diagnosis Date Anxiety Hypertension Lung cancer (CMS-HCC) Shortness of breath Sleep apnea Visual impairment glasses Past Surgical History: Procedure Laterality Date PORTACATH PLACEMENT RELEASE CARPAL TUNNEL Left 11/20/2019 Performed by Carlee Rodriguez Jr. DO at [facility] RELEASE CARPAL TUNNEL Right 09/25/2019 Performed by Carlee Rodriguez Jr., DO at [facility] TONSILLECTOMY UVULOPALATOPHARYNGOPLASTY, BILATERAL INTERMURAL CAUTERY INFERIOR TURBINATES,OUTFRACTURES N/A 02/08/2017 Performed by Shira Patterson MD at [facility] Family History Problem Relation Age of Onset Heart disease Mother Hypertension Mother Heart disease Father Social History Socioeconomic History Marital status: Tobacco Use Smoking status: Former Current packs/day: 1.00 Types: Cigarettes Smokeless tobacco: Never Vaping Use Vaping status: Never Used Substance and Sexual Activity Alcohol use: No Drug use: Not Currently Comment: former Sexual activity: Defer Social Drivers of Health Financial Resource Strain: Low Risk (11/30/2023) Received from [facility] Overall Financial Resource Strain (CARDIA) Difficulty of Paying Living Expenses: Not hard at all Recent Concern: Financial Resource Strain - High Risk (09/09/2023) Overall Financial Resource Strain (CARDIA) Difficulty of Paying Living Expenses: Hard Food Insecurity: No Food Insecurity (11/30/2023) Received from [facility] Hunger Vital Sign Within the past 12 months, you worried that your food would run out before you got the money to buy more.: Never true Recent Concern: Food Insecurity - Food Insecurity Present (09/09/2023) Hunger Screening Food Insecurity - Worry: Often True Food Insecurity - Inability: Often True Transportation Needs: No Transportation Needs (11/30/2023) Received from [facility] Transportation In the past 12 months, has lack of transportation kept you from medical appointments or from getting medications?: No Physical Activity: Insufficiently Active (11/30/2023) Received from [facility] Exercise Vital Sign Days of Exercise per Week: 3 days Minutes of Exercise per Session: 30 min Interpersonal Safety: Unknown (11/30/2023) Received from [facility] Humiliation, Afraid, Rape, and Kick questionnaire Fear of Current or Ex-Partner: No Housing Instability: Low Risk (11/30/2023) Received from [facility] Housing Stability Vital Sign In the last 12 months, was there a time when you did not have a steady place to sleep or slept in a longterm (including now)?: No Allergies Allergen Reactions Celecoxib Other reaction(s): GI Distress, Hives Metaxalone Other reaction(s): GI Distress Other Nausea And Vomiting and Other (See Comments) Other reaction(s): Hives Darvocet N 100 Medication List Accurate as of March 09, 2024 3:40 PM. If you have any questions, ask your nurse or doctor. Medications Continued This Visit albuterol 90 mcg/actuation inhaler Quantity: 18 g [...] PRN Commonly known as: PROVENTIL HFA;VENTOLIN HFA ALEVE 220 mg tablet Refills: 0 Dose: 440 mg Generic drug: naproxen sodium amiodarone 200 mg tablet Refills: 0 Dose: 200 mg Commonly known as: PACERONE apixaban 5 mg tablet Quantity: 60 tablet Refills: 11 For diagnoses: Abnormal heart rhythm Dose: 5 mg Signed by: Marie Wooten SQUEEGEE OPERATOR-BLANK DRILLER 5 mg, oral, 2 times daily Commonly known as: EVY buprenorphine-naloxone 8-2 mg per SL tablet Refills: 0 Dose: 1 tablet Commonly known as: SUBOXONE dexAMETHasone 4 mg tablet Quantity: 60 tablet Refills: 2 For diagnoses: 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) Dose: 1 mg Signed by: Connor Gonzalez 1 mg, oral, Every 12 hours PRN Commonly known as: ATIVAN losartan 25 mg tablet Refills: 0 Dose: 25 mg Commonly known as: THERESA MEN'S MULTI-VITAMIN tablet Refills: 0 Dose: 1 tablet Generic drug: multivitamin metoprolol tartrate 100 mg tablet Refills: 0 Dose: 100 mg Commonly known as: LOPRESSOR prochlorperazine 10 mg tablet Quantity: 30 tablet Refills: 0 Dose: 10 mg Signed by: Connor Gonzalez 10 mg, oral, Every 6 hours PRN Commonly known as: COMPAZINE spironolactone 50 mg tablet Refills: 0 Dose: 50 mg Commonly known as: ALDACTONE Review of Symptoms: Review of Systems ECO- Symptomatic; in bed <50% of the day Physical Exam: General: Well appearing, in no acute distress. Vitals: BP 114/66 Pulse 90 Temp 36.5 C (97.7 F) (Oral) Resp 16 Wt 125.9 kg (277 lb 9.6 oz) SpO2 99% BMI 37.85 kg/m Body mass index is 37.85 kg/m . Eyes: No icterus, no conjuctival erythema ENT: Pharyngeal mucosa was moist without exudate and inflammation or ulcerations. Tongue was midline and appeared normal.Gums were unremarkable. Lymph nodes: No palpable adenopathy Neck: Supple. There were no masses, tenderness. Trachea was midline. Respiratory: Respirations were non-labored. Lungs were clear to auscultation. There was no dullness to percussion. Cardiac: Regular rate and rhythm, S1 [...] technologist's notes above Consent/pre-procedure evaluation: See below. Drummond protocol timeout verification performed. Estimated blood loss: [...] Alvin Lomeli MD on 05/31/2023 3:03 PM Recent Labs: Recent Results (from the past 2 weeks) DAILY RADIATION TREATMENT Collection Time: 02/27/24 11:28 AM Result Value Ref Range Course Id [id number] Course Start Date 01/30/2024 First Treatment Date 02/06/2024 Last Treatment Date 02/27/2024 Elapsed Days 21 Reference Point Id Rx rt lung media Dose Given To Date 4,200 Session Dose Given 300 Plan ID Rt LungMed 3D Plan Name Rt Lung Mediastinum; 3D ap pa arc Plan Fractions Treated 14 Fractions Prescribed 15 Prescribed Dose per Fraction 300 Plan Total Prescribed Dose 4,500 Comprehensive metabolic panel Collection Time: 02/27/24 12:25 PM Result Value Ref Range Sodium 136 134 - 146 mmol/L Potassium, Bld 4.4 3.5 - 5.0 mmol/L Chloride 105 98 - 109 mmol/L CO2 25 22 - 32 mmol/L Anion gap 6 5 - 15 mmol/L BUN 14 5 - 23 mg/dL Creatinine 0.92 0.70 - 1.20 mg/dL Glucose 96 65 - 99 mg/dL Calcium 9.4 8.5 - 10.5 mg/dL Total Protein 7.5 6.0 - 8.0 g/dL Albumin 4.0 3.2 - 5.3 g/dL Alkaline Phosphatase 38 (L) 39 - 130 U/L AST 19 0 - 41 U/L ALT 20 0 - 40 U/L Total bilirubin 0.5 0.3 - 1.2 mg/dL eGFR (CKD-EPI)non-race dependent >90 >59 ml/min/1.73sq.m CBC auto differential Collection Time: 02/27/24 12:25 PM Result Value Ref Range White Blood Cells 5.5 4.0 - 11.0 X10E9/L RBC count 4.47 4.10 - 5.70 X10E12/L Hemoglobin 13.2 13.0 - 17.0 g/dL Hematocrit 39.5 39 - 49 % MCV 88 80 - 100 fL MCH 29.6 27 - 34 pg MCHC 33.5 32 - 36 g/dL RDW 15.0 11.5 - 15.0 % Platelets 209 150 - 450 X10E9/L MPV 8.1 7 - 12 fL % neutrophils 78.7 % % lymphocytes 9.5 % % monocytes 10.0 % % eosinophils 1.3 % % Basophils 0.5 % Neutrophils Absolute (A) 4.3 1.5 - 6.6 X10E9/L Lymphocytes Absolute 0.5 (L) 1.0 - 3.5 X10E9/L Monocytes Absolute 0.6 0 - 0.9 X10E9/L Eosinophils Absolute 0.1 0.0 - 0.4 X10E9/L Basophils Absolute 0.0 0.0 - 0.2 X10E9/L DAILY RADIATION TREATMENT Collection Time: 02/28/24 11:10 AM Result Value Ref Range Course Id C1 Course Start Date 01/30/2024 First Treatment Date 02/06/2024 Last Treatment Date 02/28/2024 Elapsed Days 22 Reference Point Id Rx rt lung media Dose Given To Date 4,500 Session Dose Given 300 Plan ID Rt LungMed 3D Plan Name Rt Lung Mediastinum; 3D ap pa arc Plan Fractions Treated 15 Fractions Prescribed 15 Prescribed Dose per Fraction 300 Plan Total Prescribed Dose 4,500 Diagnosis Problem list: Problem List Items Addressed This Visit Respiratory 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 He received 4 cycles of carboplatin/paclitaxel/Keytruda. Carboplatin dose was AUC of 6. The patient's blood counts remains stable during the treatment. His most recent CT scan showed disease progression with enlarging mediastinal and supraclavicular lymphadenopathy. His repeat CT scan showed significant disease progression with enlarging mediastinal and hilar mass and multiple new lung nodules Patient's brain MRI [...] Resume carboplatin/paclitaxel every 2 weeks from 03/27/24. Plan to repeat PET scan early 05/2024. Upon disease progression consider of treatment with Carbo clark's point with gemcitabine Continue Ativan 1 mg twice a day as needed. Advise patient to establish care with psychiatry regarding his severe anxiety. Thank you. Connor Gonzalez MD Please note that portions of this note were generated using voice recognition [employer] dictation software. Although every effort was made to ensure the accuracy of this automated machine operator helper, some errors in machine operator helper may have occurred. CC: Patient Care Team: No Pcp No Pcp as PCP - General (Family Medicine) Connor Gonzalez MD as Consulting Physician (Hematology) PCP:NO PCP, NO PCP Referring MD: Addison Pérez MD documented in this encounter [facility] 03-09-2024 Instructions Connor Gonzalez MD - 03/09/2024 2:30 PM EST Plan to resume chemo 03/27/2024. F/u in early 04/2024. documented in this encounter [facility] 02-28-2024 History of Present illness Narrative Juan Luis completes Palliative course of RT 15Fx to R Lung/mediastinum He has tolerated very well; recently reports feelings of mild intermittent throat discomfort but this has not affected diet/oral intake Follow up with Carlos 03/09/24 Post treatment visit with [facility] in 4-6 weeks (to be coordinated with another [facility] appointment if possible) Juan Luis is accompanied by his Mother as he rings the june and is D/C to private vehicle documented in this encounter [facility] 02-27-2024 History of Present illness Narrative Port draw completed per protocol and patient tolerated well. Site covered with band aid. Discharged in stable condition to private vehicle. documented in this encounter [facility] 02-07-2024 Note [place] [facility]rophysiology Consult Note [place] [facility] Reason for visit: afib HPI: Arvin Julien is a 44 y.o. year old with past medical history of paroxsymal atrial fibrillation s/p cardioversion in the past and most recently while at [facility] in October 2023 when hospitalized for pneumonia, stage IV lung cancer undergoing chemoradiation, heart failure, here to discuss afib management per Dr. Schafer. Says he hasn't been out of afib for months. Patient was cardioverted on 12/09/23 and was seen back outpatient back in atrial fibrillation. Patient is very symptomatic with afib, feels dizzy/lightheaded and is fatigued. Dr. Schafer reduced spironolactone to 25mg at last visit in Nov 2023. Denies chest pain. Gets palpitations and epistaxis sometimes . PMH: Past Medical History: Diagnosis Date Abnormal ECG Anxiety Arrhythmia Atrial fibrillation (CMS/HCC) Cancer (CMS/HCC) Drug abuse (CMS/HCC) GERD (gastroesophageal reflux disease) Hypertension Irregular heart beat Pulmonary mass Shortness of breath Sleep apnea USES C-PAP PSH: Past Surgical History: Procedure Laterality Date CARDIOVERSION CARPAL TUNNEL RELEASE Bilateral 2020 TONSILLECTOMY UVULOPALATOPHARYNGOPLASTY 01/2017 SH: Social Determinants of Health Tobacco Use: Medium Risk (01/26/2024) Received from [facility] Patient History Smoking Tobacco Use: Former Smokeless Tobacco Use: Never Passive Exposure: Not on file Alcohol Use: Not At Risk (11/30/2023) AUDIT-C Frequency of Alcohol Consumption: Never Average Number of Drinks: Patient does not drink Frequency of Binge Drinking: Never Financial Resource Strain: Low Risk (11/30/2023) Overall Financial Resource Strain (CARDIA) Difficulty of Paying Living Expenses: Not hard at all Recent Concern: Financial Resource Strain - High Risk (09/09/2023) [facility] Overall Financial Resource Strain (CARDIA) Difficulty of Paying Living Expenses: Hard Food Insecurity: No Food Insecurity (11/30/2023) Hunger Vital Sign Worried About Running Out of Food in the Last Year: Never true Ran Out of Food in the Last Year: Not on file Recent Concern: Food Insecurity - Food Insecurity Present (09/09/2023) [facility] Hunger Screening Within the past 12 months we worried whether our food would run out before we got money to buy more.: Often True Within the past 12 months the food we bought just didn't last and we didn't have money to get more.: Often True Transportation Needs: No Transportation Needs (11/30/2023) Transportation Lack of Transportation (Medical): No Lack of Transportation (Non-Medical): Not on file Physical Activity: Insufficiently Active (11/30/2023) Exercise Vital Sign Days of Exercise per Week: 3 days Minutes of Exercise per Session: 30 min Stress: Not on file Social Connections: Not on file Intimate Partner Violence: Unknown (11/30/2023) Humiliation, Afraid, Rape, and Kick questionnaire Fear of Current or Ex-Partner: No Emotionally Abused: Not on file Physically Abused: Not on file Sexually Abused: Not on file Depression: Not at risk (11/30/2023) PHQ-2 PHQ-2 Score: 0 Housing Stability: Low Risk (11/30/2023) Housing Stability Vital Sign Unable to Pay for Housing in the Last Year: Not on file Number of Places Lived in the Last Year: Not on file Unstable Housing in the Last Year: No Utilities: Not At Risk (11/30/2023) [facility] Utilities Threatened with loss of utilities: No Health Literacy: Not on file Allergies: Allergies Allergen Reactions Celecoxib GI intolerance and Hives Other reaction(s): GI Distress, Hives Weight: 129kg Visit Vitals BP 122/80 (BP Location: Left arm, Patient Position: Sitting) Pulse 60 Ht 1.854 m (6' 1 ) Wt 129 kg (284 lb) SpO2 96% BMI 37.47 kg/m??? Smoking Status Former BSA 2.58 m??? Meds: Current Outpatient Medications on File Prior to Visit Medication Sig Dispense Refill amiodarone (Pacerone) 200 mg tablet Take 1 tablet (200 mg) by mouth once daily as directed. 90 tablet 3 apixaban (Eliquis) 5 mg tablet Take 1 tablet (5 mg) by mouth two times daily. 180 tablet 3 buprenorphine-naloxone (Suboxone) 8-2 mg SL film dissolve 1 FILM under the tongue twice a day dapagliflozin propanediol (Farxiga) 10 mg Take 1 tablet (10 mg) by mouth once daily as directed. 90 tablet 3 LORazepam (Ativan) 0.5 mg tablet losartan (Cozaar) 25 mg tablet Take 1 tablet (25 mg) by mouth once daily as directed. 90 tablet 3 metoprolol succinate XL (Toprol-XL) 100 mg 24 hr tablet Take 1 tablet (100 mg) by mouth once daily in the morning. Take 100 mg in the morning and 50 mg in the evening 90 tablet 3 metoprolol succinate XL (Toprol-XL) 50 mg 24 hr tablet Take 1 tablet (50 mg) by mouth once daily in the evening. Do not crush or chew. Take 100 mg in the morning and 50 mg in the evening. 90 ta (more content not included)... [facility] 01-26-2024 History of Present illness Narrative Patient is seen in follow up today to review PET scan with Dr. Gonzalez. At this time Dr. Gonzalez does not feel that patient will tolerate concurrent chemo/radiation. She would like for patient to proceed with radiation alone at this time and follow up mid February to assess. Plan to resume chemotherapy LEANDRA after radiation. Treatment calendar provided for follow up on 03/09/[address] Gonzalez. Discharged in stable condition in care of mother to private vehicle. documented in this encounter [facility] 01-26-2024 History of Present illness Narrative Images from the original note were not included. [facility] 01/26/24 Arvin Mcknight Anaya is a 44 y.o. year old male seen today in the oncology clinic. No chief complaint on file. History of Present Illness: Mr. Julien is a 44 y.o. 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 He was status post 4 cycles of carboplatin/paclitaxel, carboplatin with AUC of 6. After 4 cycles of combined treatment, he was maintained on Keytruda only. October 2022 showed excellent response to treatment. Unfortunately February 2023 showed [...] carboplatin/Abraxane. Palliative radiation to the chest 01/2024- Interval history: Unfortunately the patient was told [...] His treatment was changed to Abraxane carboplatin. He is tolerating treatment well without significant rash. Still in AFib but no tachycardia. After diuresis his swelling is getting much better baseline weight is 285 lb. He complains about severe anxiety lately, Ativan helped. Breathing is better no significant shortness of breath. No headaches or vision change. Past Medical History: Diagnosis Date Anxiety Hypertension Lung cancer (CMS-HCC) Shortness of breath Sleep apnea Visual impairment glasses Past Surgical History: Procedure Laterality Date PORTACATH PLACEMENT RELEASE CARPAL TUNNEL Left 11/20/2019 Performed by Carlee Rodriguez Jr., DO at [facility] RELEASE CARPAL TUNNEL Right 09/25/2019 Performed by Carlee Rodriguez Jr., DO at [facility] TONSILLECTOMY UVULOPALATOPHARYNGOPLASTY, BILATERAL INTERMURAL CAUTERY INFERIOR TURBINATES,OUTFRACTURES N/A 02/08/2017 Performed by Shira Patterson MD at [facility] Family History Problem Relation Age of Onset Heart disease Mother Hypertension Mother Heart disease Father Social History Socioeconomic History Marital status: Tobacco Use Smoking status: Former Current packs/day: 1.00 Types: Cigarettes Smokeless tobacco: Never Vaping Use Vaping status: Never Used Substance and Sexual Activity Alcohol use: No Drug use: Not Currently Comment: former Sexual activity: Defer Social Drivers of Health Financial Resource Strain: Low Risk (11/30/2023) Received from [facility] Overall Financial Resource Strain (CARDIA) Difficulty of Paying Living Expenses: Not hard at all Recent Concern: Financial Resource Strain - High Risk (09/09/2023) Overall Financial Resource Strain (CARDIA) Difficulty of Paying Living Expenses: Hard Food Insecurity: No Food Insecurity (11/30/2023) Received from [facility] Hunger Vital Sign Within the past 12 months, you worried that your food would run out before you got the money to buy more.: Never true Recent Concern: Food Insecurity - Food Insecurity Present (09/09/2023) Hunger Screening Food Insecurity - Worry: Often True Food Insecurity - Inability: Often True Transportation Needs: No Transportation Needs (11/30/2023) Received from [facility] Transportation In the past 12 months, has lack of transportation kept you from medical appointments or from getting medications?: No Physical Activity: Insufficiently Active (11/30/2023) Received from [facility] Exercise Vital Sign Days of Exercise per Week: 3 days Minutes of Exercise per Session: 30 min Interpersonal Safety: Unknown (11/30/2023) Received from [facility] Humiliation, Afraid, Rape, and Kick questionnaire Fear of Current or Ex-Partner: No Housing Instability: Low Risk (11/30/2023) Received from [facility] Housing Stability Vital Sign In the last 12 months, was there a time when you did not have a steady place to sleep or slept in a longterm (including now)?: No Allergies Allergen Reactions Celecoxib Other reaction(s): GI Distress, Hives Metaxalone Other reaction(s): GI Distress Other Nausea And Vomiting and Other (See Comments) Other reaction(s): Hives Darvocet N 100 Medication List Accurate as of January 26, 2024 1:06 PM. If you have any questions, ask your nurse or doctor. Medications Continued This Visit albuterol 90 mcg/actuation inhaler Quantity: 18 g Refills: 11 Doctor's comments: Please dispense whichever albuterol HFA product is preferred by patient insurance. 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 Cox 2 puffs, inhalation, Every 6 hours PRN Commonly known as: PROVENTIL HFA;VENTOLIN HFA ALEVE 220 mg tablet Refills: 0 Dose: 440 mg Generic drug: naproxen sodium amiodarone 200 mg tablet Refills: 0 Dose: 200 mg Commonly known as: PACERONE apixaban 5 mg tablet Quantity: 60 tablet Refills: 11 For diagnoses: Abnormal heart rhythm Dose: 5 mg Signed by: Marie Wooten APRN-BLANK DRILLER 5 mg, oral, 2 times daily Commonly known as: EVY buprenorphine-naloxone 8-2 mg per SL tablet Refills: 0 Dose: 1 tablet Commonly known as: SUBOXONE dexAMETHasone 4 mg tablet Quantity: 60 tablet Refills: 2 For diagnoses: 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 ([facility]) Dose: 0.5 mg Signed by: Connor Gonzalez 0.5 mg, oral, Every 12 hours PRN Commonly known as: ATIVAN losartan 25 mg tablet Refills: 0 Dose: 25 mg Commonly known as: COZAAR MEN'S MULTI-VITAMIN tablet Refills: 0 Dose: 1 tablet Generic drug: multivitamin metoprolol tartrate 100 mg tablet Refills: 0 Dose: 100 mg Commonly known as: LOPRESSOR prochlorperazine 10 mg tablet Quantity: 30 tablet Refills: 0 Dose: 10 mg Signed by: Connor Gonzalez 10 mg, oral, Every 6 hours PRN Commonly known as: COMPAZINE spironolactone 50 mg tablet Refills: 0 Dose: 50 mg Commonly known as: ALDACTONE Review of Symptoms: Review of Systems ECO- Symptomatic; in bed <50% of the day Physical Exam: General: Well appearing, in no acute distress. Vitals: BP 108/79 Pulse 90 Temp 36.8 C (98.3 F) (Oral) Resp 17 Ht 182.4 cm (5' 11.81 ) Wt 129.3 kg (285 lb) SpO2 98% BMI 38.86 kg/m Body mass index is 38.86 kg/m . Eyes: No icterus, no conjuctival erythema ENT: Pharyngeal mucosa was moist without exudate and inflammation or ulcerations. Tongue was midline and appeared normal.Gums were unremarkable. Lymph nodes: No palpable adenopathy Neck: Supple. There were no masses, tenderness. Trachea was midline. Respiratory: Respirations were non-labored. Lungs were clear to auscultation. There was no dullness to percussion. Cardiac: Regular rate and rhythm, S1 [...] technologist's notes above Consent/pre-procedure evaluation: See below. Drummond protocol timeout verification performed. Estimated blood loss: [...] Alvin Lomeli MD on 05/31/2023 3:03 PM Recent Labs: No results found for this or any previous visit (from the past 2 weeks). 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 He received 4 cycles of carboplatin/paclitaxel/Keytruda. Carboplatin dose was AUC of 6. The patient's blood counts remains stable during the treatment. His most recent CT scan showed disease progression with enlarging mediastinal and supraclavicular lymphadenopathy. His repeat CT scan showed significant disease progression with enlarging mediastinal and hilar mass and multiple new lung nodules Patient's brain MRI [...] will have radiation treatment alone without chemotherapy. Follow-up with in early March to assess his tolerance. Upon disease progression consider of treatment with Carbo clark's point with gemcitabine Plan to resume chemotherapy LEANDRA after radiation Advise patient contact Cardiology regarding recurrent AFib. Increase Ativan to 1 mg twice a day as needed. Thank you. Connor Gonzalez MD Please note that portions of this note were generated using voice recognition [employer] dictation software. Although every effort was made to ensure the accuracy of this automated machine operator helper, some errors in machine operator helper may have occurred. CC: Patient Care Team: No Pcp No Pcp as PCP - General (Family Medicine) Connor Gonzalez MD as Consulting Physician (Hematology) PCP:NO PCP, NO PCP Referring MD: Connor Gonzalez MD documented in this encounter [facility] 01-18-2024 History of Present illness Narrative Images from the original note were not included. Spoke with patient. Treatment cancelled next week. Rad onc referral entered. Patient verbalized understanding of follow up apt with Dr. Gonzalez next week. MD Osiris Simeon RN; Tess Sanon RN Let's refer him to rad/onc for consultation, consider concurrent chemoradiation. I discussed this option with him and his mom last visit. You can move his appt up with me in January. Previous Messages ----- Message ----- From: Osiris Ward RN Sent: 2024 9:47 AM EST To: Connor Gonzalez MD Patient is due for treatment next week before he see you in February. Please advise on treatment change? ----- Message ----- From: Interface - Rad Results/Orders In 1 Sent: 01/16/2024 10:03 AM EST To: [facility] Onc Nurses documented in this encounter [facility] 2024 History of Present illness Narrative Images from the original note were not included. VM left for patient's mother to discuss MD Osiris Simeon RN; Tess Sanon RN Let's refer him to rad/onc for consultation, consider concurrent chemoradiation. I discussed this option with him and his mom last visit. You can move his appt up with me in January. Previous Messages ----- Message ----- From: Osiris Ward RN Sent: 2024 9:47 AM EST To: Connor Gonzalez MD Patient is due for treatment next week before he see you in February. Please advise on treatment change? ----- Message ----- From: Interface - Rad Results/Orders In 1 Sent: 01/16/2024 10:03 AM EST To: [facility] On[facility] Nurses documented in this encounter [facility] 01-10-2024 History of Present illness Narrative Pt informs he was not approved for SNAP. Pt informs food runs low at times. Provided pt with area current food pantry list. Opportunity provided to ask questions, pt does not endorse any at this time; documentation writer available & following. documented in this encounter [facility] 01-10-2024 History of Present illness Narrative Patient is here for Abraxane/Carboplatin as scheduled. Labs reviewed and OK to proceed with treatment. Toxicity check completed per flowsheet data. Pre chemo check completed with Endy Rhodes RN. Port accessed under sterile procedure with brisk blood return verified and line flushes with ease. NS initiated as mainline at KVO rate. Patient pre medicated with IVPB Emend and IV Aloxi/dexamethasone without incident and tolerated well. Abraxane administered over 30 minutes without incident and patient tolerated well. At completion, line flushed. Carboplatin infused over 30 minutes without incident and patient tolerated well. Upon completion, IV flushed. Port flushed via push/pause method, saline locked, de-accessed and site covered with band aid. Treatment calendar reviewed and labs provided. Patient discharged in stable condition in care of his mother to private vehicle. documented in this encounter [facility] 01-09-2024 History of Present illness Narrative Port draw completed per protocol and patient tolerated well. Patient does not remain accessed. Site covered with band aid. Discharged in stable condition to private vehicle. documented in this encounter [facility] 12-30-2023 History of Present illness Narrative Patient is here for follow up with Dr. Gonzalez. Orders received for PET scan end of 12/2023. Linda gonzalez scheduled. Referral to rad/onc F/u with MD in 2 months. Patient given calendar, verbalized understanding of future appointments. documented in this encounter [facility] 12-30-2023 History of Present illness Narrative Images from the original note were not included. [facility] 12/30/23 Arvin Julien is a 43 y.o. year old male seen today in the oncology clinic. Chief Complaint Patient presents with Follow-up History of Present Illness: Mr. Julien is a 43 y.o. 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 He was status post 4 cycles of carboplatin/paclitaxel, carboplatin with AUC of 6. After 4 cycles of combined treatment, he was maintained on Keytruda only. October 2022 showed excellent response to treatment. Unfortunately February 2023 showed [...] resumed 08/2023 (grade 3 skin rash from paclitaxel) Interval history: Unfortunately the patient was told [...] His treatment was changed to Abraxane carboplatin. He is tolerating treatment well without significant rash now still in AFib but no tachycardia. After diuresis his swelling is getting much better baseline weight is 285 lb. He complains about severe anxiety lately, Ativan helped. Past Medical History: Diagnosis Date Anxiety Hypertension Lung cancer ([facility]) Shortness of breath Sleep apnea Visual impairment glasses Past Surgical History: Procedure Laterality Date PORTACATH PLACEMENT RELEASE CARPAL TUNNEL Left 11/20/2019 Performed by Carlee Rodriguez Jr., DO at [facility] RELEASE CARPAL TUNNEL Right 09/25/2019 Performed by Carlee Rodriguez Jr., DO at [facility] TONSILLECTOMY UVULOPALATOPHARYNGOPLASTY, BILATERAL INTERMURAL CAUTERY INFERIOR TURBINATES,OUTFRACTURES N/A 02/08/2017 Performed by Shira Patterson MD at [facility] Family History Problem Relation Age of Onset Heart disease Mother Hypertension Mother Heart disease Father Social History Socioeconomic History Marital status: Tobacco Use Smoking status: Former Current packs/day: 1.00 Types: Cigarettes Smokeless tobacco: Never Substance and Sexual Activity Alcohol use: No Drug use: Not Currently Comment: former Sexual activity: Defer Social Drivers of Health Financial Resource Strain: Low Risk (11/30/2023) Received from [facility] Overall Financial Resource Strain (CARDIA) Difficulty of Paying Living Expenses: Not hard at all Recent Concern: Financial Resource Strain - High Risk (09/09/2023) Overall Financial Resource Strain (CARDIA) Difficulty of Paying Living Expenses: Hard Food Insecurity: No Food Insecurity (11/30/2023) Received from [facility] Hunger Vital Sign Within the past 12 months, you worried that your food would run out before you got the money to buy more.: Never true Recent Concern: Food Insecurity - Food Insecurity Present (09/09/2023) Hunger Screening Food Insecurity - Worry: Often True Food Insecurity - Inability: Often True Transportation Needs: No Transportation Needs (11/30/2023) Received from [facility] Transportation In the past 12 months, has lack of transportation kept you from medical appointments or from getting medications?: No Physical Activity: Insufficiently Active (11/30/2023) Received from [facility] Exercise Vital Sign Days of Exercise per Week: 3 days Minutes of Exercise per Session: 30 min Interpersonal Safety: Unknown (11/30/2023) Received from [facility] Humiliation, Afraid, Rape, and Kick questionnaire Fear of Current or Ex-Partner: No Housing Instability: Low Risk (11/30/2023) Received from [facility] Housing Stability Vital Sign In the last 12 months, was there a time when you did not have a steady place to sleep or slept in a longterm (including now)?: No Allergies Allergen Reactions Celecoxib Other reaction(s): GI Distress, Hives Metaxalone Other reaction(s): GI Distress Other Nausea And Vomiting and Other (See Comments) Other reaction(s): Hives Darvocet N 100 Medication List Accurate as of December 30, 2023 1:24 PM. If you have any questions, ask your nurse or doctor. Medications Continued This Visit albuterol 90 mcg/actuation inhaler Quantity: 18 g [...] PRN Commonly known as: PROVENTIL HFA;VENTOLIN HFA ALEVE 220 mg tablet Refills: 0 Dose: 440 mg Generic drug: naproxen sodium amiodarone 200 mg tablet Refills: 0 Dose: 200 mg Commonly known as: PACERONE apixaban 5 mg tablet Quantity: 60 tablet Refills: 11 For diagnoses: Abnormal heart rhythm Dose: 5 mg Signed by: YURIY RubinBLANK DRILLER 5 mg, oral, 2 times daily Commonly known as: EVY buprenorphine-naloxone 8-2 mg per SL tablet Refills: 0 Dose: 1 tablet Commonly known as: SUBOXONE dexAMETHasone 4 mg tablet Quantity: 60 tablet Refills: 2 For diagnoses: 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) Dose: 0.5 mg Signed by: Connor Gonzalez 0.5 mg, oral, Every 12 hours PRN Commonly known as: ATIVAN losartan 25 mg tablet Refills: 0 Dose: 25 mg Commonly known as: COZAAR MEN'S MULTI-VITAMIN tablet Refills: 0 Dose: 1 tablet Generic drug: multivitamin metoprolol tartrate 100 mg tablet Refills: 0 Dose: 100 mg Commonly known as: LOPRESSOR prochlorperazine 10 mg tablet Quantity: 30 tablet Refills: 0 Dose: 10 mg Signed by: Connor Gonzalez 10 mg, oral, Every 6 hours PRN Commonly known as: COMPAZINE spironolactone 50 mg tablet Refills: 0 Dose: 50 mg Commonly known as: ALDACTONE Review of Symptoms: Review of Systems ECO- Symptomatic; in bed <50% of the day Physical Exam: General: Well appearing, in no acute distress. Vitals: BP 113/82 Pulse 96 Temp 36.6 C (97.9 F) (Oral) Ht 182.4 cm (5' 11.81 ) Wt 129.5 kg (285 lb 6.4 oz) SpO2 100% BMI 38.91 kg/m Body mass index is 38.91 kg/m . Eyes: No icterus, no conjuctival erythema ENT: Pharyngeal mucosa was moist without exudate and inflammation or ulcerations. Tongue was midline and appeared normal.Gums were unremarkable. Lymph nodes: No palpable adenopathy Neck: Supple. There were no masses, tenderness. Trachea was midline. Respiratory: Respirations were non-labored. Lungs were clear to auscultation. There was no dullness to percussion. Cardiac: Regular rate and rhythm, S1 [...] technologist's notes above Consent/pre-procedure evaluation: See below. [place] protocol timeout verification performed. Estimated blood loss: [...] Alvin Lomeli MD on 05/31/2023 3:03 PM Recent Labs: Recent Results (from the past 2 weeks) Comprehensive metabolic panel Collection Time: 12/19/23 12:15 PM Result Value Ref Range Sodium 133 (L) 134 - 146 mmol/L Potassium, Bld 4.1 3.5 - 5.0 mmol/L Chloride 102 98 - 109 mmol/L CO2 23 22 - 32 mmol/L Anion gap 8 5 - 15 mmol/L BUN 11 5 - 23 mg/dL Creatinine 1.03 0.70 - 1.20 mg/dL Glucose 144 (H) 65 - 99 mg/dL Calcium 9.2 8.5 - 10.5 mg/dL Total Protein 6.9 6.0 - 8.0 g/dL Albumin 4.2 3.2 - 5.3 g/dL Alkaline Phosphatase 37 (L) 39 - 130 U/L AST 30 0 - 41 U/L ALT 42 (H) 0 - 40 U/L Total bilirubin 0.9 0.3 - 1.2 mg/dL eGFR (CKD-EPI)non-race dependent >90 >59 ml/min/1.73sq.m CBC auto differential Collection Time: 12/19/23 12:15 PM Result Value Ref Range White Blood Cells 2.6 (L) 4.0 - 11.0 X10E9/L RBC count 4.45 4.10 - 5.70 X10E12/L Hemoglobin 13.4 13.0 - 17.0 g/dL Hematocrit 39.8 39 - 49 % MCV 89 80 - 100 fL MCH 30.2 27 - 34 pg MCHC 33.8 32 - 36 g/dL RDW 16.7 (H) 11.5 - 15.0 % Platelets 201 150 - 450 X10E9/L MPV 8.1 7 - 12 fL Metamyelocyte 2.0 % Band 1.0 % Seg neutrophil 30.0 % Lymphocyte 34.0 % Monocytes 28.0 % Eosinophil 1.0 % Basophil 1.0 % Lymphocyte, atypical 3.0 % Neutrophils Absolute (M) 0.8 (L) 1.5 - 6.6 X10E9/L Lymphocytes Absolute 1.0 1.0 - 3.5 X10E9/L Monocytes Absolute 0.7 0 - 0.9 X10E9/L Eosinophils Absolute 0.0 0.0 - 0.4 X10E9/L Basophils Absolute 0.0 0.0 - 0.2 X10E9/L Toxic granulation 2+ (A) NONE^NONE RBC Morphology REVIEWED Comprehensive metabolic panel Collection Time: 12/26/23 12:20 PM Result Value Ref Range Sodium 134 134 - 146 mmol/L Potassium, Bld 4.2 3.5 - 5.0 mmol/L Chloride 104 98 - 109 mmol/L CO2 24 22 - 32 mmol/L Anion gap 6 5 - 15 mmol/L BUN 10 5 - 23 mg/dL Creatinine 0.90 0.70 - 1.20 mg/dL Glucose 116 (H) 65 - 99 mg/dL Calcium 9.4 8.5 - 10.5 mg/dL Total Protein 6.8 6.0 - 8.0 g/dL Albumin 4.1 3.2 - 5.3 g/dL Alkaline Phosphatase 36 (L) 39 - 130 U/L AST 31 0 - 41 U/L ALT 36 0 - 40 U/L Total bilirubin 0.9 0.3 - 1.2 mg/dL eGFR (CKD-EPI)non-race dependent >90 >59 ml/min/1.73sq.m CBC auto differential Collection Time: 12/26/23 12:20 PM Result Value Ref Range White Blood Cells 4.9 4.0 - 11.0 X10E9/L RBC count 4.47 4.10 - 5.70 X10E12/L Hemoglobin 13.3 13.0 - 17.0 g/dL Hematocrit 40.3 39 - 49 % MCV 90 80 - 100 fL MCH 29.8 27 - 34 pg MCHC 33.1 32 - 36 g/dL RDW 16.5 (H) 11.5 - 15.0 % Platelets 207 150 - 450 X10E9/L MPV 7.8 7 - 12 fL % neutrophils 57.1 % % lymphocytes 29.0 % % monocytes 12.8 % % eosinophils 0.3 % % Basophils 0.8 % Neutrophils Absolute (A) 2.8 1.5 - 6.6 X10E9/L Lymphocytes Absolute 1.4 1.0 - 3.5 X10E9/L Monocytes Absolute 0.6 0 - 0.9 X10E9/L Eosinophils Absolute 0.0 0.0 - 0.4 X10E9/L Basophils Absolute 0.0 0.0 - 0.2 X10E9/L Diagnosis Problem list: Problem List Items Addressed This Visit Respiratory 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) - Primary 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) Impression: Metastatic squamous cell carcinoma, no actionable mutations (guardant 360) Atrial fibrillation History of drug abuse on Suboxone Plan: I reviewed the patient's previous treatment history at [facility]. He received 4 cycles of carboplatin/paclitaxel/Keytruda. Carboplatin dose was AUC of 6. The patient's blood counts remains stable during the treatment. His most recent CT scan showed disease progression with enlarging mediastinal and supraclavicular lymphadenopathy. His repeat CT scan showed significant disease progression with enlarging mediastinal and hilar mass and multiple new lung nodules Patient's brain MRI [...] no significant progression in the. PET scan end of 12/2023. Referral to rad/onc to consider palliative radiation to the residual hilar disease. F/u with in 2 months. Upon disease progression consider of treatment with Carbo [place] with gemcitabine Advise patient contact Cardiology regarding recurrent AFib. Increase Ativan to 1 mg twice a day as needed. Thank you. Connor Gonzalez MD Please note that portions of this note were generated using voice recognition M*Modal dictation software. Although every effort was made to ensure the accuracy of this automated machine operator helper, some errors in machine operator helper may have occurred. CC: Patient Care Team: No Pcp No Pcp as PCP - General (Family Medicine) Connor Gonzalez MD as Consulting Physician (Hematology) PCP:NO PCP, NO PCP Referring MD: Addison Pérez MD documented in this encounter [facility] 12-30-2023 Instructions Connor Gonzalez MD - 12/30/2023 12:45 PM EST PET scan end of 12/2023. Referral to rad/onc F/u with MD in 2 months. documented in this encounter [facility] 12-27-2023 History of Present illness Narrative Patient is here for Abraxane/Carboplatin as scheduled. Labs reviewed and OK to proceed with treatment. He was held last week for neutropenia. Toxicity check completed per flowsheet data. Pre chemo check completed with Endy Rhodes RN. Port accessed under sterile procedure with brisk blood return verified and line flushes with ease. NS initiated as mainline at KVO rate. Patient pre medicated with IVPB Emend and IV Aloxi/dexamethasone without incident and tolerated well. Abraxane administered over 30 minutes without incident and patient tolerated well. At completion, line flushed. Carboplatin infused over 30 minutes without incident and patient tolerated well. Upon completion, IV flushed. Port flushed via push/pause method, saline locked, de-accessed and site covered with band aid. Treatment calendar reviewed and labs provided. Patient discharged in stable condition in care of his mother to private vehicle. [facility] 12-27-2023 History of Present illness Narrative Images from the original note were not included. MD Osiris Simeon RN Yes go ahead with treatment overall he has a stable disease. Previous Messages ----- Message ----- From: Osiris Ward RN Sent: 12/27/2023 7:44 AM EST To: Connor Gonzalez MD Subject: due for treatment today Based on recent ct scan. Am I okay to treat him today with current treatment plan? Apt is at 12:30 today. documented in this encounter [facility] 12-26-2023 History of Present illness Narrative Port draw per protocol. documented in this encounter [facility] 12-21-2023 Note [place] [facility] Subjective Arvin Julien is a 43 y.o. year old male patient being seen for follow-up visit Patient Active Problem List Diagnosis Lung mass Primary lung cancer with metastasis from lung to other site, right (CMS/HCC) Community acquired pneumonia, bilateral Squamous cell carcinoma of lung, stage IV (CMS/HCC) Chronic atrial fibrillation (CMS/HCC) Acute on chronic heart failure with preserved ejection fraction (CMS/HCC) Atrial fibrillation with rapid ventricular response (CMS/HCC) Hypomagnesemia Hypoalbuminemia Other specified anemias Chronic HFrEF (heart failure with reduced ejection fraction) (CMS/HCC) Primary hypertension Obesity (BMI 30-39.9) Paroxysmal atrial fibrillation (CMS/HCC) Persistent atrial fibrillation (CMS/HCC) Aching headache Chest pain [place] (dyspnea on exertion) Shortness of breath Former smoker Hemoptysis High risk medication use Hyperglycemia Leg edema Lung cancer (CMS/HCC) Muscle cramp 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/HCC) Obstructive sleep apnea Pre-diabetes Smoking greater than 20 pack years Family History Problem Relation Name Age of Onset No Known Problems Mother Heart disease Father Heart failure Father Heart failure Brother Heart disease Brother Social History Tobacco Use Smoking status: Former Packs/day: 2.00 Years: 30.00 Additional pack years: 0.00 Total pack years: 60.00 Types: Cigarettes Quit date: 04/2022 Years since quittin.6 Passive exposure: Past Smokeless tobacco: Current Types: Chew Vaping Use Vaping Use: Never used Substance Use Topics Alcohol use: Not Currently Drug use: Not Currently Types: Heroin Comment: QUIT 2015 HPI 12/21/2023 The patient is status post repeat cardioversion on 12/09/2023 as out patient. He thinks that he has been back in A-fib for about 4 days. He feels very good when he is in sinus rhythm. The minute he went back to A-fib he has been feeling tired, shortness of breath and dizzy. His blood pressure yesterday evening was 83/42. He has not been taking losartan due to low blood pressure. He states that his weight has been stable at home. He states that his heart rate is usually in the 80s to 90s and rarely up to 110. He denies any chest pain. He denies orthopnea or legs 12/05/2023 Arvin is seen in follow-up. He is a 43-year-old man with history of paroxysmal atrial fibrillation status post cardioversion in the past and most recently during admission to [facility] in October 2023. He also was found to have heart failure with reduced ejection fraction. He has history of stage IV lung cancer and is maintained on chemotherapy, one day twice a month. Currently he is on amiodarone and Eliquis for atrial fibrillation management. For heart failure therapy he is on spironolactone, metoprolol succinate, losartan, Farxiga. He was evaluated in follow-up after the hospital admission on 11/24/2023 in our cardiology clinic by nurse practitioner Katie Silva. He was found to have been back into atrial fibrillation. Today he is seen in follow-up because of worsening symptoms of shortness of breath, weight gain. No chest pain. He feels palpitations. He reports that he felt much better after the cardioversion and now he is feeling very tired. Objective Visit Vitals BP 130/78 (BP Location: Left arm, Patient Position: Sitting) Pulse 93 Ht 1.854 m (6' 1 ) Wt 127 kg (280 lb) SpO2 98% BMI 36.94 kg/m??? Smoking Status Former BSA 2.56 m??? Physical examination: He is alert, oriented, not in apparent distress next Neck jugular venous pressure is normal no Bruit Lungs clear to auscultation without rales or rhonchi or wheezes Cardiovascular system irregular irregularity, normal S1 and S2, no murmur Extremities no edema or cyanosis or clubbing Allergies Allergies Allergen Reactions Celecoxib GI intolerance and Hives Other reaction(s): GI Distress, Hives Medications Current Outpatient Medications: amiodarone (Pacerone) 200 mg tablet, Take 1 tablet (200 mg) by mouth once daily as directed., Disp: 90 tablet, Rfl: 3 apixaban (Eliquis) 5 mg tablet, Take 1 tablet (5 mg) by mouth two times daily., Disp: 180 tablet, Rfl: 3 buprenorphine-naloxone (Suboxone) 8-2 mg SL film, dissolve 1 FILM under the tongue twice a day, Disp: , Rfl: dapagliflozin propanediol (Farxiga) 10 mg, Take 1 tablet (10 mg) by mouth once daily as directed., Disp: 90 tablet, Rfl: 3 LORazepam (Ativan) 0.5 mg tablet, , Disp: , Rfl: losartan (Cozaar) 25 mg tablet, Take 1 tablet (25 mg) by mouth once daily as directed., Disp: 90 tablet, Rfl: 3 metoprolol succinate XL (Toprol-XL) 100 mg 24 hr tablet, Take 1 tablet (100 mg) by mouth once daily in the morning. Take 100 mg in the morning and 50 mg in the evening, Disp: 90 tablet, Rfl: 3 metoprolol succinate XL (Toprol-XL) 50 mg 24 hr tablet, (more content not included)... [facility] 12-19-2023 History of Present illness Narrative Port draw completed per protocol. Patient does not remain accessed. Discharged in stable condition to private vehicle. documented in this encounter [facility] 12-06-2023 History of Present illness Narrative Patient is here for C2D15 Abraxane/Carboplatin as scheduled. Labs reviewed and OK to proceed with treatment. Toxicity check completed per flowsheet data. All complaints at baseline, but patient does report that he is still in A-fib and cardiology is planing to do cardioversion again, but date not known at this time. Pre chemo check completed with Endy Rhodes RN. Port accessed under sterile procedure with brisk blood return verified and line flushes with ease. NS initiated as mainline at KVO rate. Patient pre medicated with IVPB Emend and IVPB Aloxi/dexamethasone without incident and tolerated well. Abraxane administered over 30 minutes without incident and patient tolerated well. At completion, line flushed. Carboplatin infused over 30 minutes without incident and patient tolerated well. Upon completion, IV flushed. Port flushed via push/pause method, saline locked, de-accessed and site covered with band aid. Treatment calendar reviewed and labs provided. Patient discharged in stable condition in care of his mother to private vehicle. documented in this encounter [facility] 12-05-2023 Note [place] [facility] Subjective Arvin Julien is a 43 y.o. year old male patient being seen for 20+ lbs weight gain. Says the other day his BP was 74/39 and he was lightheaded and was seeing spots. C/o fatigue. Denies chest pain. Says his SOB w/wo exertion is intermittent. Has epistaxis, which he said he's had for a long time, even prior to Eliquis. Patient Active Problem List Diagnosis Lung mass Primary lung cancer with metastasis from lung to other site, right (CMS/HCC) Community acquired pneumonia, bilateral Squamous cell carcinoma of lung, stage IV (CMS/HCC) Chronic atrial fibrillation (CMS/HCC) Acute on chronic heart failure with preserved ejection fraction (CMS/HCC) Atrial fibrillation with rapid ventricular response (CMS/HCC) Hypomagnesemia Hypoalbuminemia Other specified anemias Chronic HFrEF (heart failure with reduced ejection fraction) (CMS/HCC) Primary hypertension Obesity (BMI 30-39.9) Paroxysmal atrial fibrillation (CMS/HCC) Family History Problem Relation Name Age of Onset No Known Problems Mother Heart disease Father Heart failure Father Heart failure Brother Heart disease Brother Social History Tobacco Use Smoking status: Former Packs/day: 2.00 Years: 30.00 Additional pack years: 0.00 Total pack years: 60.00 Types: Cigarettes Quit date: 04/2022 Years since quittin.6 Passive exposure: Past Smokeless tobacco: Current Types: Chew Vaping Use Vaping Use: Never used Substance Use Topics Alcohol use: Not Currently Drug use: Not Currently Types: Heroin Comment: QUIT 2014 [employer] [facility] is seen in follow-up. He is a 43-year-old man with history of paroxysmal atrial fibrillation status post cardioversion in the past and most recently during admission to [facility] in October 2023. He also was found to have heart failure with reduced ejection fraction. He has history of stage IV lung cancer and is maintained on chemotherapy, one day twice a month. Currently he is on amiodarone and Eliquis for atrial fibrillation management. For heart failure therapy he is on spironolactone, metoprolol succinate, losartan, Farxiga. He was evaluated in follow-up after the hospital admission on 11/24/2023 in our cardiology clinic by nurse practitioner Katie Silva. He was found to have been back into atrial fibrillation. Today he is seen in follow-up because of worsening symptoms of shortness of breath, weight gain. No chest pain. He feels palpitations. He reports that he felt much better after the cardioversion and now he is feeling very tired. Review of Systems Constitutional: Positive for weight gain. Cardiovascular: Positive for dyspnea on exertion. Respiratory: Positive for shortness of breath. Neurological: Positive for light-headedness. All other systems reviewed and are negative. Objective Visit Vitals BP 107/76 (BP Location: Left arm, Patient Position: Sitting) Pulse 68 Ht 1.854 m (6' 1 ) Wt 122 kg (268 lb) SpO2 97% BMI 35.36 kg/m??? Smoking Status Former BSA 2.51 m??? Physical Exam Constitutional: Appearance: He is well-developed. He is obese. He is not ill-appearing. HENT: Head: Normocephalic and atraumatic. Nose: Nose normal. Eyes: General: No scleral icterus. Pupils: Pupils are equal, round, and reactive to light. Neck: Thyroid: No thyromegaly. Vascular: No JVD. Cardiovascular: Rate and Rhythm: Tachycardia present. Rhythm irregularly irregular. Pulses: Radial pulses are 2+ on the right side and 2+ on the left side. Heart sounds: Normal heart sounds. No murmur heard. No friction rub. No gallop. Pulmonary: Effort: Pulmonary effort is normal. No respiratory distress. Breath sounds: Normal breath sounds. No wheezing or rales. Chest: Chest wall: No tenderness. Abdominal: General: Bowel sounds are normal. There is no distension. Palpations: Abdomen is soft. Tenderness: There is no abdominal tenderness. Musculoskeletal: General: No swelling. Cervical back: Neck supple. Right lower le+ Pitting Edema present. Left lower le+ Pitting Edema present. Skin: General: Skin is warm and dry. Neurological: General: No focal deficit present. Mental Status: He is alert and oriented to person, place, and time. Psychiatric: Mood and Affect: Mood normal. Behavior: Behavior is cooperative. Judgment: Judgment normal. Allergies Allergies Allergen Reactions Celecoxib GI intolerance and Hives Other reaction(s): GI Distress, Hives Medications Current Outpatient Medications: buprenorphine-naloxone (Suboxone) 8-2 mg SL film, dissolve 1 FILM under the tongue twice a day, Disp: , Rfl: amiodarone (Pacerone) 200 mg tablet, Take 1 tablet (200 mg) by mouth once daily as directed., Disp: 90 tablet, Rfl: 3 apixaban (Eliquis) 5 mg tablet, Take 1 tablet (5 mg) by mouth two times daily., Disp: 180 tablet, Rfl: 3 busPIRone (Buspar) 5 mg tablet, Take 1 tablet (more content not included)... [facility] 12-05-2023 History of Present illness Narrative CBC and CMP obtained via port draw per facility protocol. documented in this encounter [facility] 12-02-2023 Note PCP visit with noted increased weight gain of about 20 pounds, leg edema and states pt is not feeling well, dizziness, low blood pressure. Will prescribe lasix and potassium for diuresis with noted weight gain, and have pt evaluated in clinic Soon- within the week. Repeat BMP within 1 week. Katie Krishnamurthy [facility] Cardiology Available 7a-5pm via [place] Pager [phone] [facility] 11-30-2023 Note Subjective Patient ID: Arvin Julien is a 43 y.o. male who presents for New Patient (Establish care/HFU-pneumonia). Arvin Julien is a 43 y.o. male with medical history significant for stage IV lung squamous cell carcinoma on Abraxane and carboplatin (last dose was on 10/25,), A-fib on metoprolol and Eliquis, CHF with preserved EF and remote history of opioid dependence currently on Suboxone who was transferred from [facility] because of difficult to control atrial fibrillation and sepsis from pneumonia. Patient was admitted at [facility] on 11/01 and stayed there for 3 days then was transferred to [facility] and discharged home on 11/11/2023. Patient states was been complaining of excessive fatigue since his last chemo on 10/25 which got progressively worse, worsening shortness of breath with minimal exertion and cough productive of yellow sputum initially which became dark red and shayne after starting antibiotics while in the hospital. He treated for bilateral pneumonia. He followed up with cardiology on 11/24/23 and stated he was back in afib per his smart watch. He has resumed Chemo every other week since DC from hospital, and follows with [facility] team. Patient lives in [place], [place]. Of concern is that he gained 21 lbs since his visit with Cardiology on 11/23, which was 6 days ago. He experiences anxiety and tells me his BP is 80's/40's at times and he gets symptoms of vision changes with seeing colors, dizziness/lightheaded sensations. He was prescribed a few weeks ago Ativan 0.5 mg for as needed use to treat his anxiety from his Oncologist. Patient denies any correlation with his hypotension and taking the Ativan. He reports the Ativan does not seem to be helping with his anxiety. Review of Systems Constitutional: Negative for appetite change, chills, fatigue and fever. Cardiovascular: Negative for chest pain, palpitations and leg swelling. Gastrointestinal: Negative for abdominal pain, blood in stool, constipation, diarrhea, nausea and vomiting. Endocrine: Negative for cold intolerance, heat intolerance, polydipsia, polyphagia and polyuria. Genitourinary: Negative for difficulty urinating, dysuria, flank pain and hematuria. Musculoskeletal: Negative for arthralgias, back pain, joint swelling, myalgias, neck pain and neck stiffness. Skin: Negative for color change. Neurological: Positive for dizziness and light-headedness. Negative for seizures, syncope, weakness, numbness and headaches. Psychiatric/Behavioral: Negative for dysphoric mood, sleep disturbance and suicidal ideas. The patient is nervous/anxious. Objective Physical Exam Constitutional: Appearance: He is obese. HENT: Mouth/Throat: Mouth: Mucous membranes are moist. Pharynx: Oropharynx is clear. No oropharyngeal exudate or posterior oropharyngeal erythema. Eyes: Conjunctiva/sclera: Conjunctivae normal. Pupils: Pupils are equal, round, and reactive to light. Cardiovascular: Rate and Rhythm: Rhythm irregular. Heart sounds: Murmur heard. Pulmonary: Effort: Pulmonary effort is normal. No respiratory distress. Breath sounds: Normal breath sounds. Abdominal: General: Bowel sounds are normal. There is no distension. Palpations: Abdomen is soft. Tenderness: There is no abdominal tenderness. There is no right CVA tenderness or left CVA tenderness. Musculoskeletal: General: No swelling or deformity. Right lower leg: Edema (1+) present. Left lower leg: Edema (1+) present. Skin: General: Skin is warm and dry. Coloration: Skin is not jaundiced. Findings: No bruising, erythema, lesion or rash. Neurological: General: No focal deficit present. Mental Status: He is alert and oriented to person, place, and time. Mental status is at baseline. Psychiatric: Mood and Affect: Mood normal. Behavior: Behavior normal. Thought Content: Thought content normal. Assessment/Plan Diagnosis Plan 1. Primary lung cancer with metastasis from lung to other site, right (CMS/HCC) Ambulatory referral to [facility] Has every other week infusion treatments with Oncology team. 2. Community acquired pneumonia, bilateral Resolved, no obvious symptoms or signs of pneumonia at this time. Completed his home course of Augmentin. 3. Acute on chronic heart failure with preserved ejection fraction (CMS/HCC) worsening 2/2 to A-Fib- continue Farxiga, Metoprolol, Spironolactone. Directed patient to hold Losartan due to hypotension at this time and contact Cardiology. 4. Chronic atrial fibrillation (CMS/HCC) Actively in A-Fib - continue Eliquis. Needs better rhythm control. Rate controlled - continue Amiodarone and Metoprolol. He needs to contact Dr. Ceja 5. Hypomagnesemia Magnesium Basic metabolic panel Check labs - magnesium and BMP lab ordered. 6. Primary hypertension Controlled in the office 118/71 - patient reports hypotension with symptoms at home in the evening - discussed to h (more content not included)... [facility] 11-24-2023 Note ECG today has return ed to A fib- HR 108-130 bpm Will increase toprol to 100 mg in am and 50 mg in pm, continue amiodarone 200 mg daily. Will D/W Dr Ceja regarding possible ablation- A fib vs AV [...] have agreed to proceed with the procedure. [facility] 11-24-2023 Note [facility] II currently eu volemic without exacerbation. Continue GDMT- toprol, farxiga, aldactone Diuretic therapy Monitor daily weights, I&O, fluid restriction 1.5-2L/day, renal function and electrolytes- please maintain K+>4 and Mg > 2 [facility] 11-24-2023 Note [facility] CARDIOLOGY PROGR ESS NOTE HPI: Arvin Julien is a 43 y.o. male here for f/U A fib with RVR , HFrEF HPI 43 y.o. year old male patient with HFrEF and paroxysmal atrial fibrillation with RVR s/p DCCV. Pt called office and stated he was back in afib per his smart watch. He has resumed Chemo every other week since DC from hospital, and had Chemo Tuesday. States he was feeling really well when I was in rhythm, and feel worse in a fib. Denied chest pain, SOB, Orthopnea. Reports occasional dizzyness/lightheadedness, denied syncope. Denied fever, chills, weight gain or leg swelling. 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 Respiratory: Negative. Cardiovascular: Negative. Neurological: Negative. All other systems reviewed and are negative. Visit Vitals BP 130/60 Pulse 81 Ht 1.854 m (6' 1 ) Wt 118 kg (261 lb) SpO2 97% BMI 34.43 kg/m??? Smoking Status Former BSA 2.47 m??? No Known Allergies Medications: Current Outpatient Medications on File Prior to Visit Medication Sig Dispense Refill amiodarone (Pacerone) 200 mg tablet Take 1 tablet (200 mg) by mouth with breakfast. 30 tablet 11 apixaban (Eliquis) 5 mg tablet Take 5 mg by mouth two times daily. buprenorphine-naloxone (Suboxone) 8-2 mg SL film dissolve 1 FILM under the tongue twice a day dapagliflozin propanediol (Farxiga) 10 mg Take 1 tablet (10 mg) by mouth in the morning. 30 tablet 11 losartan (Cozaar) 25 mg tablet Take 1 tablet (25 mg) by mouth in the morning. 30 tablet 11 multivitamin tablet Take 1 tablet by mouth in the morning. spironolactone (Aldactone) 50 mg tablet Take 1 tablet (50 mg) by mouth in the morning. 30 tablet 11 UNABLE TO FIND Med Name: BLACK SEED [DISCONTINUED] metoprolol succinate XL (Toprol-XL) 100 mg 24 hr tablet Take 1 tablet (100 mg) by mouth in the morning. Do not crush or chew. 30 tablet 11 No current facility-administered medications on file prior to visit. Physical Exam: Constitutional: Appearance: Normal appearance. Without apparent distress, obese, chronically ill HENT: Head: Normocephalic and atraumatic. Nose: Nose normal. Mouth/Throat: Mouth: Mucous membranes are moist. Eyes: Extraocular Movements: Extraocular movements intact. Conjunctiva/sclera: Conjunctivae normal. Neck: Vascular: No JVD. Cardiovascular: Rate and Rhythm: Tachycardic and Irregular rhythm. Pulses: Dorsalis pedis pulses are 3 on the right side and 3on the left side. Posterior tibial pulses are 3 on the right side and 3 on the left side. Heart sounds: Normal heart sounds, S1 normal and S2 normal. Pulmonary: Effort: Pulmonary effort is normal. Breath sounds: Normal breath sounds. Abdominal: General: Bowel sounds are normal. Palpations: Abdomen is soft. Musculoskeletal: General: Normal range of motion. Cervical back: Normal range of motion. Right lower leg: No edema. Left lower leg: No edema. Skin: General: Skin is warm and dry. Capillary Refill: Capillary refill takes less than 2 seconds. Neurological: General: No focal deficit present. Mental Status: he is alert and oriented to person, place, and time. Psychiatric: Mood and Affect: Mood normal. Behavior: Behavior normal. Thought Content: Thought content normal. Judgment: Judgment normal. Labs: 11/21/23 White Blood Cells 4.0 - 11.0 X10E9/L 6.7 RBC count 4.10 - 5.70 X10E12/L 4.15 Hemoglobin 13.0 - 17.0 g/dL 12.5 Low Hematocrit 39 - 49 % 37.4 Low Platelets 150 - 450 X10E9/L 265 Units 3 d ago Sodium 134 - 146 mmol/L 134 Potassium, Bld 3.5 - 5.0 mmol/L 4.0 Chloride 98 - 109 mmol/L 103 CO2 22 - 32 mmol/L 23 Anion gap 5 - 15 mmol/L 8 BUN 5 - 23 mg/dL 9 Creatinine 0.70 - 1.20 mg/dL 1.02 Comment: METHOD TRACEABLE TO IDMS STANDARD Glucose 65 - 99 mg/dL 115 High Calcium 8.5 - 10.5 mg/dL 9.2 Total Protein 6.0 - 8.0 g/dL 7.4 Albumin 3.2 - 5.3 g/dL 3.9 Alkaline Phosphatase 39 - 130 U/L 41 AST 0 - 41 U/L 33 ALT 0 - 40 U/L 41 High Total bilirubin 0.3 - 1.2 mg/dL 0.8 eGFR (CKD-EPI)non-race dependent >59 ml/min/1.73sq.m >90 Component Ref Range & Units 13 d ago (11/11/23) 2 wk ago (11/10/23) 2 wk ago (11/09/23) 2 wk ago (11/08/23) 2 wk ago (11/07/23) 2 wk ago (11/06/23) 2 wk ago (11/05/23) Magnesium 1.9 - 2.7 mg/dL 1.8 Low 1.7 Low 1.8 Low 1.8 Low 1.8 Low 1.9 1.9 Last lab values have been reviewed Lab Results Component Value Date NA 140 11/11/2023 K 4.0 11/11/2023 CL 101 11/11/2023 CO2 31 11/11/2023 BUN 13 11/11/2023 CREATININE 0.90 11/11/2023 GLUCOSE 107 (H) 11/11/2023 CALCIUM (more content not included)... [facility] 11-24-2023 Note Pt is here for a [facility] low up appointment. Patient denies chest pains. Review of Systems Cardiovascular: Positive for palpitations. Negative for chest pain, dyspnea on exertion, leg swelling, near-syncope, orthopnea, paroxysmal nocturnal dyspnea and syncope. Hematologic/Lymphatic: Negative for bleeding problem. Neurological: Positive for dizziness and light-headedness. All other systems reviewed and are negative. [facility] 11-22-2023 History of Present illness Narrative Pt here for D1C2 Abraxane/Carboplatin. Pt reports feeling well, no new or worsening sx, pre-chemo checklist and toxicity screen per protocol. Port accessed, brisk blood return noted, flushes without difficulty. Premedicated per orders. Abraxane infused over 30 minutes followed by Carboplatin over 30 minutes. Port de-accessed and saline locked per protocol. Pt verbalized understanding of future appointments. Pt discharged ambulatory in stable condition. documented in this encounter [facility] 11-17-2023 History of Present illness Narrative Patient is here for follow up with Dr. Gonzalez. Orders received to Resume tx 11/22/2023. CT scan end of 11/2023. F/u mid 12/2023. Patient given calendar, verbalized understanding of future appointments. documented in this encounter [facility] 11-17-2023 History of Present illness Narrative Images from the original note were not included. [facility] 11/17/23 Arvin Julien is a 43 y.o. year old male seen today in the oncology clinic. Chief Complaint Patient presents with Follow-up History of Present Illness: Mr. Julien is a 43 y.o. 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 He was status post 4 cycles of carboplatin/paclitaxel, carboplatin with AUC of 6. After 4 cycles of combined treatment, he was maintained on Keytruda only. October 2022 showed excellent response to treatment. Unfortunately February 2023 showed [...] resumed 08/2023 (grade 3 skin rash from paclitaxel) Interval history: Unfortunately the patient was told [...] was changed to Abraxane carboplatin. The patient was recently hospitalized for atrial fibrillation with RVR, he had conversion procedure and now is back to AFib again. No skin rash from Abraxane. After diuresis his swelling is getting much better baseline weight is 285 lb. He complains about severe anxiety lately, Xanax helped. Past Medical History: Diagnosis Date Anxiety Hypertension Lung cancer (CMS-HCC) Shortness of breath Sleep apnea Visual impairment glasses Past Surgical History: Procedure Laterality Date PORTACATH PLACEMENT RELEASE CARPAL TUNNEL Left 11/20/2019 Performed by Carlee Rodriguez Jr., DO at [facility] RELEASE CARPAL TUNNEL Right 09/25/2019 Performed by Carlee Rodriguez Jr., at [facility] TONSILLECTOMY UVULOPALATOPHARYNGOPLASTY, BILATERAL INTERMURAL CAUTERY INFERIOR TURBINATES,OUTFRACTURES N/A 02/08/2017 Performed by Shira Patterson MD at [facility] Family History Problem Relation Age of Onset Heart disease Mother Hypertension Mother Heart disease Father Social History Socioeconomic History Marital status: Tobacco Use Smoking status: Former Current packs/day: 1.00 Types: Cigarettes Smokeless tobacco: Never Substance and Sexual Activity Alcohol use: No Drug use: Not Currently Comment: former Sexual activity: Defer Social Determinants of Health Financial Resource Strain: Low Risk (11/05/2023) Received from [facility] Overall Financial Resource Strain (CARDIA) Difficulty of Paying Living Expenses: Not very hard Recent Concern: Financial Resource Strain - High Risk (09/09/2023) Overall Financial Resource Strain (CARDIA) Difficulty of Paying Living Expenses: Hard Food Insecurity: No Food Insecurity (11/17/2023) Hunger Screening Food Insecurity - Worry: Never True Food Insecurity - Inability: Never True Recent Concern: Food Insecurity - Food Insecurity Present (09/09/2023) Hunger Screening Food Insecurity - Worry: Often True Food Insecurity - Inability: Often True Transportation Needs: No Transportation Needs (11/05/2023) Received from [facility] Transportation In the past 12 months, has lack of transportation kept you from medical appointments or from getting medications?: No Interpersonal Safety: Unknown (11/05/2023) Received from [facility] Humiliation, Afraid, Rape, and Kick questionnaire Fear of Current or Ex-Partner: No Housing Instability: Low Risk (11/05/2023) Received from [facility] Housing Stability Vital Sign In the last 12 months, was there a time when you did not have a steady place to sleep or slept in a longterm (including now)?: No Allergies Allergen Reactions Celecoxib Other reaction(s): GI Distress, Hives Metaxalone Other reaction(s): GI Distress Other Nausea And Vomiting and Other (See Comments) Other reaction(s): Hivshavonne Larkint N 100 Medication List Accurate as of November 17, 2023 4:29 PM. If you have any questions, ask your nurse or doctor. New Medications Ordered This Visit LORazepam 0.5 mg tablet Quantity: 60 tablet Refills: 3 Doctor's comments: 30 Day Supply For diagnoses: Non-small cell lung cancer metastatic to lymph node of head and neck region ([facility]) Dose: 0.5 mg Signed by: Connor Gonzalez 0.5 mg, oral, Every 12 hours PRN Commonly known as: ATIVAN Started by: Connor Gonzalez Medications Continued This Visit albuterol 90 mcg/actuation inhaler Quantity: 18 g Refills: 11 Doctor's comments: Please dispense whichever albuterol HFA product is preferred by patient insurance. 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 Cox 2 puffs, inhalation, Every 6 hours PRN Commonly known as: PROVENTIL HFA;VENTOLIN HFA ALEVE 220 mg tablet Refills: 0 Dose: 440 mg Generic drug: naproxen sodium amiodarone 200 mg tablet Refills: 0 Dose: 200 mg Commonly known as: PACERONE apixaban 5 mg tablet Quantity: 60 tablet Refills: 11 For diagnoses: Abnormal heart rhythm Dose: 5 mg Signed by: JUAN Rubin 5 mg, oral, 2 times daily Commonly known as: EVY buprenorphine-naloxone 8-2 mg per SL tablet Refills: 0 Dose: 1 tablet Commonly known as: SUBOXONE dexAMETHasone 4 mg tablet Quantity: 60 tablet Refills: 2 For diagnoses: 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 Commonly known as: DECADRON dilTIAZem 30 mg tablet Refills: 0 Commonly known as: CARDIZEM FARXIGA 10 mg tablet Refills: 0 Dose: 10 mg Generic drug: dapagliflozin propanediol furosemide 20 mg tablet Quantity: 30 tablet Refills: 0 For diagnoses: Leg edema, right Dose: 20 mg Signed by: Connor Gonzalez 20 mg, oral Commonly known as: LASIX losartan 25 mg tablet Refills: 0 Dose: 25 mg Commonly known as: COZAAR MEN'S MULTI-VITAMIN tablet Refills: 0 Dose: 1 tablet Generic drug: multivitamin metoprolol tartrate 100 mg tablet Refills: 0 Dose: 100 mg Commonly known as: LOPRESSOR prochlorperazine 10 mg tablet Quantity: 30 tablet Refills: 0 Dose: 10 mg Signed by: Connor Gonzalez 10 mg, oral, Every 6 hours PRN Commonly known as: COMPAZINE spironolactone 50 mg tablet Refills: 0 Dose: 50 mg Commonly known as: ALDACTONE Review of Symptoms: Review of Systems ECO- Symptomatic; in bed <50% of the day Physical Exam: General: Well appearing, in no acute distress. Vitals: BP (!) 143/99 Pulse 74 Temp 36.6 C (97.9 F) (Oral) Resp 18 Ht 185.4 cm (6' 0.99 ) Wt 129.7 kg (286 lb) SpO2 99% BMI 37.74 kg/m Body mass index is 37.74 kg/m . Eyes: No icterus, no conjuctival erythema ENT: Pharyngeal mucosa was moist without exudate and inflammation or ulcerations. Tongue was midline and appeared normal.Gums were unremarkable. Lymph nodes: No palpable adenopathy Neck: Supple. There were no masses, tenderness. Trachea was midline. Respiratory: Respirations were non-labored. Lungs were clear to auscultation. There was no dullness to percussion. Cardiac: Regular rate and rhythm, S1 [...] technologist's notes above Consent/pre-procedure evaluation: See below. Drummond protocol timeout verification performed. Estimated blood loss: [...] Alvin Lomeli MD on 05/31/2023 3:03 PM Recent Labs: No results found for this or any previous visit (from the past 336 hour(s)). Diagnosis Problem list: Problem List Items Addressed This Visit Respiratory 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) - Primary Relevant Medications LORazepam (ATIVAN) 0.5 mg tablet 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) Impression: Metastatic squamous cell carcinoma, no actionable mutations (guardant 360) Atrial fibrillation History of drug abuse on Suboxone Plan: I reviewed the patient's previous treatment history at [facility]. He received 4 cycles of carboplatin/paclitaxel/Keytruda. Carboplatin dose was AUC of 6. The patient's blood counts remains stable during the treatment. His most recent CT scan showed disease progression with enlarging mediastinal and supraclavicular lymphadenopathy. His repeat CT scan showed significant disease progression with enlarging mediastinal and hilar mass and multiple new lung nodules Patient's brain MRI 07/2023 was unremarkable no evidence of intracranial metastasis. He has develops grade 3 drug reaction to paclitaxel. Treatment was changed to carboplatin/Abraxane. PDL1 study showed 5% expression. Resume tx 11/22/2023. CT scan end of 11/2023. F/u mid 12/2023. Upon disease progression consider of treatment with Carbo [place] with gemcitabine Advise patient contact Cardiology regarding recurrent AFib. A trial of Ativan 0.5 b.I.d. as needed for anxiety. Thank you. Connor Gonzalez MD Please note that portions of this note were generated using voice recognition [employer] dictation software. Although every effort was made to ensure the accuracy of this automated machine operator helper, some errors in machine operator helper may have occurred. CC: Patient Care Team: No Pcp No Pcp as PCP - General (Family Medicine) Connor Gonzalez MD as Consulting Physician (Hematology) PCP:NO PCP, NO PCP Referring MD: Addison Pérez MD documented in this encounter [facility] 11-17-2023 Instructions Connor Gonzalez MD - 11/17/2023 3:30 PM EDT Resume tx 11/22/2023. CT scan end of 11/2023. F/u mid 12/2023. documented in this encounter [facility] 11-14-2023 Note [place] [facility] - [facility] Subjective Arvin Julien is a 43 y.o. year old male patient with HFrEF and paroxysmal atrial fibrillation with RVR s/p DCCV, being seen for hospital follow up. 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 male with medical history significant for stage IV lung squamous cell carcinoma on Abraxane and carboplatin (last dose was on 10/25,), A-fib on metoprolol and Eliquis, CHF with preserved EF and remote history of opioid dependence currently on Suboxone who is transferred from [facility] because of difficult to control atrial fibrillation and sepsis from pneumonia. Patient was admitted at [place] since 11/01 and stayed there for 3 days then was transferred to us. Patient states he has been complaining of excessive fatigue since his last chemo on 10/25 which got progressively worse, worsening shortness of breath with minimal exertion and cough productive of yellow sputum initially which became dark red and shayne after starting antibiotics while in the hospital. Initial workup showed that patient had bilateral pneumonia which can also be progression of lung cancer according to CTA chest report. Patient has been afebrile with no leukocytosis probably as he is immunocompromised from chemotherapy. Patient was managed with IV Rocephin azithromycin and Levaquin. No significant improvement Regarding A-fib, heart rate was up to 180 and 190, was managed with diltiazem bolus followed by infusion then there was a concern of low EF, around 40%, so he was switched to amiodarone on 11/03. At home he takes metoprolol around 200 mg daily. Patient was also managed with fluid boluses he received total of 2 L of normal saline despite the presence of extremities edema. Patient was also managed with Lasix IV Labs and images at [facility]: CBC: WBC 7.4, hemoglobin 11.1, platelets 194. BMP: Sodium 132, potassium 3.7, chloride 96, CO2 27 anion gap 12.6, BUN 6, creatinine 1.02, glucose 174, calcium 9.0. Magnesium 1.6 LFT: Total bilirubin 1.5, AST 16, ALT 50, alkaline phosphatase 33, albumin 3.3, protein 7.0 NT proBNP: 1292 EKG: A-fib, rate 190, right axis deviation probably from right fascicular Joaquim block. No ischemic changes Troponin negative Respiratory panel PCR: Negative for all viruses including SARS-CoV-2, RSV, influenza A and B Blood cultures: No growth at 36 to 48 hours x 2 CTA chest: No central PE. Bilateral multifocal parenchymal infiltrates, multifocal pneumonia is favored however recurrent malignancy is not excluded. 7.5 cm right and 1.3 cm left pleural effusion Overnight 11/05/23, HR remained high and 11/05/23 increased metoprolol to 100mg BID. Patient underwent on 11/09 MIA cardioversion currently in sinus rhythm.. EF showed to be 30 to 35% with moderate MR. patient to be discharged on amnio taper and Augmentin for 3 more days. Patient to follow-up with cardiology as scheduled ------ Patient Active Problem List Diagnosis Lung mass Primary lung cancer with metastasis from lung to other site, right (CMS/HCC) Community acquired pneumonia, bilateral Squamous cell carcinoma of lung, stage IV (CMS/HCC) Chronic atrial fibrillation (CMS/HCC) Acute on chronic heart failure with preserved ejection fraction (CMS/HCC) Atrial fibrillation with rapid ventricular response (CMS/HCC) Hypomagnesemia Hypoalbuminemia Other specified anemias Chronic HFrEF (heart failure with reduced ejection fraction) (CMS/HCC) Primary hypertension Obesity (BMI 30-39.9) Family History Family history unknown: Yes Social History Tobacco Use Smoking status: Former Types: Cigarettes Quit date: 04/2022 Years since quittin.5 Smokeless tobacco: Never Vaping Use Vaping Use: Never used Substance Use Topics Alcohol use: Not Currently Drug use: Not Currently Types: Heroin Comment: QUIT 2014 HPI: Arvin is here for follow up after discharge from hospital 3 days ago. He was transferred to [facility] from [place] when he was found to have Afib with RVR. He reports he has SOB and palpitations when he is in Afib and states he has known Afib for past few years at least. He has stage IV lung cancer for which he is on chemotherapy infusions. They were on hold due to hospital stay but plans to resume. He reports history of sleep apnea and does not wear his cpap/bipap. He says he has not had new equipment or testing for few years and he states his breathin (more content not included)... 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 male with medical history significant for stage IV lung squamous cell carcinoma on Abraxane and carboplatin (last dose was on 10/25,), A-fib on metoprolol and Eliquis, CHF with preserved EF and remote history of opioid dependence currently on Suboxone who is transferred from [facility] because of difficult to control atrial fibrillation and sepsis from pneumonia. Patient was admitted at [facility] since 11/01 and stayed there for 3 days then was transferred to us. Patient states he has been complaining of excessive fatigue since his last chemo on 10/25 which got progressively worse, worsening shortness of breath with minimal exertion and cough productive of yellow sputum initially which became dark red and shayne after starting antibiotics while in the hospital. Initial workup showed that patient had bilateral pneumonia which can also be progression of lung cancer according to CTA chest report. Patient has been afebrile with no leukocytosis probably as he is immunocompromised from chemotherapy. Patient was managed with IV Rocephin azithromycin and Levaquin. No significant improvement Regarding A-fib, heart rate was up to 180 and 190, was managed with diltiazem bolus followed by infusion then there was a concern of low EF, around 40%, so he was switched to amiodarone on 11/03. At home he takes metoprolol around 200 mg daily. Patient was also managed with fluid boluses he received total of 2 L of normal saline despite the presence of extremities edema. Patient was also managed with Lasix IV Labs and images at [facility]: CBC: WBC 7.4, hemoglobin 11.1, platelets 194. BMP: Sodium 132, potassium 3.7, chloride 96, CO2 27 anion gap 12.6, BUN 6, creatinine 1.02, glucose 174, calcium 9.0. Magnesium 1.6 LFT: Total bilirubin 1.5, AST 16, ALT 50, alkaline phosphatase 33, albumin 3.3, protein 7.0 NT proBNP: 1292 EKG: A-fib, rate 190, right axis deviation probably from right fascicular Joaquim block. No ischemic changes Troponin negative Respiratory panel PCR: Negative for all viruses including SARS-CoV-2, RSV, influenza A and B Blood cultures: No growth at 36 to 48 hours x 2 CTA chest: No central PE. Bilateral multifocal parenchymal infiltrates, multifocal pneumonia is favored however recurrent malignancy is not excluded. 7.5 cm right and 1.3 cm left pleural effusion Overnight 11/05/23, HR remained high and 11/05/23 increased metoprolol to 100mg BID. Patient underwent on 11/09 MIA cardioversion currently in sinus rhythm.. EF showed to be 30 to 35% with moderate MR. patient to be discharged on amnio taper and Augmentin for 3 more days. Patient to follow-up with cardiology as scheduled Surgical, Invasive or Diagnostic Procedures Done During Admission: MIA CV Consultations During Admission: Cardiology/Oncology/Pulmonary/EP Dear DIANE Ramos, Arvin is advised to follow up with you within 1-2 weeks. Items to follow up in ambulatory setting: None Follow-up with: Cardiology Scheduled appointments: Future Appointments Date Time Provider Department Center 11/14/2023 11:00 AM Izzy La NP [facility] 11/21/2023 3:10 PM DIANE Blackwood [facility] Comprehensiv Your medication list START taking these medications Instructions Last Dose Given Next Dose Due amiodarone 200 mg tablet Commonly known as: Pacerone Take 1 tablet (200 mg) by mouth with breakfast. amoxicillin-pot clavulanate 875-125 mg tablet Commonly known as: Augmentin Take 1 tablet by mouth two times daily for 3 days. dapagliflozin propanediol 10 mg Commonly known as: Farxiga Start taking on: November 12, 2023 Take 1 tablet (10 mg) by mouth in the morning. Do not start before November 12, 2023. losartan 25 mg tablet Commonly known as: Cozaar Start taking on: November 12, 2023 Take 1 tablet (25 mg) by mouth in the morning. Do not start before November 12, 2023. metoprolol succinate XL 100 mg 24 hr tablet Commonly known as: Toprol-XL Take 1 tablet (100 mg) by mouth in the morning. Do not crush or chew. spironolactone 50 mg tablet Commonly known as: Aldactone Take 1 tablet (50 mg) by mouth in the morning. CHANGE how you take these medications Instructions Last Dose Given Next Dose Due buprenorphine-naloxone 8-2 mg SL film Commonly known as: Suboxone What changed: Another medication with the same name was removed. Continue taking this medication, and follow the directions you see here. CONTINUE taking these medications Instructions Last Dose Given Next Dose Due ap (more content not included)... [facility] 11-11-2023 Note ------ Attestation signed by Sukhwinder Schafer MD at 11/11/2023 2:45 PM I personally saw and examined the patient on the same date of service as resident/fellow Dr Cervantes. I discussed the findings and therapeutic plan with the resident/fellow Dr Cervantes. I agree with the documentation, except for any edits/updates below. Teaching Physician's Revisions: None Patient states that he feels much better after he was cardioverted yesterday from A-fib to sinus rhythm. He states that the shortness of breath is totally gone and he does not feel weak or tired anymore. He denies any chest pain. He has been maintaining normal sinus rhythm. Blood pressure is well-controlled On exam he has trace edema bilaterally but definitely he had skin changes consistent with venous stasis The patient can be discharged from cardiac point of view on current medications including Current Facility-Administered Medications Medication Dose Route Frequency Provider Last Rate Last Admin ALPRAZolam (Xanax) tablet 0.25 mg 0.25 mg oral BID PRN Rohini Avila MD 0.25 mg at 11/10/23 2132 amiodarone (Pacerone) tablet 200 mg 200 mg oral Daily with breakfast Sukhwinder Schafer MD 200 mg at 11/11/23 1038 amoxicillin-pot clavulanate (Augmentin) 875-125 mg per tablet 1 tablet 1 tablet oral BID Ananyachip Alqadi 1 tablet at 11/11/23 1037 apixaban (Eliquis) tablet 5 mg 5 mg oral BID Avery Samayoa MD 5 mg at 11/11/23 1038 buprenorphine-naloxone (Suboxone) 8-2 mg per SL tablet 1 tablet 1 tablet sublingual BID Avery Samayoa MD 1 tablet at 11/11/23 1038 dapagliflozin propanediol (Farxiga) tablet 10 mg 10 mg oral Daily Theron Maria MD 10 mg at 11/11/23 1111 dilTIAZem (Cardizem) injection 20 mg 20 mg intravenous Once PRN Avery Samayoa MD furosemide (Lasix) tablet 40 mg 40 mg oral Daily Ab Nichols MD 40 mg at 11/11/23 1038 heparin lock flush 100 unit/mL syringe 500 Units 500 Units intra-catheter Once Yamilex Sanchez NP heparin lock flush 100 unit/mL syringe 500 Units 500 Units intra-catheter Once PRN Rohini Avila MD 500 Units at 11/11/23 1318 losartan (Cozaar) tablet 25 mg 25 mg oral Daily Theron Maria MD 25 mg at 11/11/23 1111 melatonin tablet 6 mg 6 mg oral Nightly PRN Yamilex Sanchez NP 6 mg at 11/10/23 2131 metoprolol succinate XL (Toprol-XL) 24 hr tablet 100 mg 100 mg oral Daily Sukhwinder Schafer MD 100 mg at 11/11/23 1037 ondansetron ODT (Zofran-ODT) disintegrating tablet 4 mg 4 mg oral q8h PRN Avery Samayoa MD Or ondansetron HCl (PF) (Zofran) injection 4 mg 4 mg intravenous q6h PRN Avery Samayoa MD Oxygen Therapy inhalation Continuous PRN Galdino Frye MD Given at 11/05/23 0811 polyethylene glycol (Glycolax) packet 17 g 17 g oral Nightly PRN Avery Samayoa MD spironolactone (Aldactone) tablet 50 mg 50 mg oral Daily Sukhwinder Schafer MD 50 mg at 11/11/23 1037 traMADol (Ultram) tablet 50 mg 50 mg oral q4h PRN Avery Samayoa MD 50 mg at 11/08/23 0757 Current Outpatient Medications Medication Sig Dispense Refill amiodarone (Pacerone) 200 mg tablet Take 1 tablet (200 mg) by mouth with breakfast. 30 tablet 0 amoxicillin-pot clavulanate (Augmentin) 875-125 mg tablet Take 1 tablet by mouth two times daily for 3 days. 6 tablet 0 apixaban (Eliquis) 5 mg tablet Take 5 mg by mouth twice a day. buprenorphine-naloxone (Suboxone) 8-2 mg SL film dissolve 1 FILM under the tongue twice a day [START ON 11/12/2023] dapagliflozin propanediol (Farxiga) 10 mg Take 1 tablet (10 mg) by mouth in the morning. Do not start before November 12, 2023. 30 tablet 0 [START ON 11/12/2023] losartan (Cozaar) 25 mg tablet Take 1 tablet (25 mg) by mouth in the morning. Do not start before November 12, 2023. 30 tablet 0 metoprolol succinate XL (Toprol-XL) 100 mg 24 hr tablet Take 1 tablet (100 mg) by mouth in the morning. Do not crush or chew. 30 tablet 0 multivitamin tablet Take 1 tablet by mouth in the morning. nicotine (Nicoderm CQ) 21 mg/24 hr patch apply 1 patch to CLEAN, DRY, AND INTACT SKIN once daily REMOVE ev... (REFER TO PRESCRIPTION NOTES). spironolactone (Aldactone) 50 mg tablet Take 1 tablet (50 mg) by mouth in the morning. 30 tablet 0 UNABLE TO FIND Med Name: BLACK SEED He was advised regarding following low-salt diet, fluid intake restrictions, and daily weights He was also advised to wear compression stockings during the daytime Follow-up in cardiology clinic in 1 to 2 weeks. Sukhwinder Schafer MD, [facility] ------ Cardiology Progress Note Subjective Objective Interval History Patient was seen and examined at bedside. Patient was lying comfortably in bed. Patient denies any chest pain, shortness of breath, abdominal pain, dizziness or lightheadedness. Objective: Patient Vitals for the past 24 hrs: BP Temp Temp src Pulse Resp SpO2 Weight 11/11/23 0830 118/77 36.2 ???C (97.2 ? (more content not included)... [facility] 11-10-2023 Note Hospital Medicine Daily Progress Note - 11/10/2023 12:03 PM; Room: [address] [place] [address] Admission: 11/04/2023 11:27 PM; Length of stay: 6 days THE HOSPITALIST TEAM PREFERS TO USE [employer] CHAT FOR COMMUNICATION 7AM-7PM. IF I DO NOT RESPOND WITHIN 15 MINUTES, PLEASE PAGE ME/CALL THROUGH THE WINDOWS DESKTOP ENGINEER. FROM 7PM-7AM, PLEASE PAGE [phone](COVR) Code Status: Full Code Barriers to Discharge: A. Fib with RVR Expected Discharge Date: 1-2 days ? Discharge Destination: home Overview Patient is here for the management of A. Fib with RVR Subjective Patient is seen for evaluation and management of Seen today in his room, alert and in no acute distress Physical Exam HEENT: Normocephalic, atraumatic Cardiovascular: tachycardic with irregular rate and occasional PVC on monitor Respiratory: coughing productive of yellow sputum. no acute respiratory distress, clear to auscultation bilaterally, no wheezing or rales Abdomen: Soft, nontender, nondistended Extremities: No cyanosis, 2+ pedal edema bilaterally. (Improving since yesterday) Neuro: No focal deficits Skin: Warm, dry, no rashes Visit Vitals BP 98/77 Pulse 78 Temp 36 ???C (96.8 ???F) (Temporal) Resp 16 Intake/Output Summary (Last 24 hours) at 11/10/2023 1203 Last data filed at 11/09/2023 2111 Gross per 24 hour Intake 480 ml Output -- Net 480 ml Estimated body mass index is 35.38 kg/m??? as calculated from the following: Height as of this encounter: 1.854 m (6' 1 ). Weight as of this encounter: 122 kg (268 lb 3.2 oz). 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, currently on chemotherapy Atrial fibrillation with RVR, [id number] score of 1, on metoprolol and Eliquis at home s/p failed cardioversion 2023 Chronic heart failure with reduced ejection fraction EF 35 to 40% 10/2023, NYHA II History of opioid dependence on Suboxone Hypomagnesemmia Continue metoprolol , Cardizem and digoxin Currently on amiodarone drip, DCCV once at least 0.5gms is in the system if rates cannot be controlled If despite amio, cannot control VR, then PPM+AVN ablation can be considered as a last option MIA CV today Entresto on hold for now Continue Lasix 40 daily Continue Rocephin switched to Augmentin for total 10 days on discharge Patient will need repeat CT scan chest in 4-6 weeks outpatient His last cycle was 10/25 of Abraxane and carboplatin Replace lytes per protocol VTE Prophylaxis: Eliquis Scheduled Meds amoxicillin-pot clavulanate, 1 tablet, oral, BID apixaban, 5 mg, oral, BID buprenorphine-naloxone, 1 tablet, sublingual, BID digoxin, 250 mcg, oral, Daily dilTIAZem, 30 mg, oral, q8h HAILEY furosemide, 40 mg, oral, Daily metoprolol tartrate, 150 mg, oral, BID spironolactone, 50 mg, oral, Daily amiodarone, 1 mg/min, Last Rate: 1 mg/min (11/10/23 1133) Oxygen Therapy, Pertinent Investigations Hematology: Results from last 7 days Lab Units 11/10/23 0442 11/09/23 0502 WBC AUTO 10*3/uL 6.25 5.52 HEMOGLOBIN g/dL 10.3* 10.3* HEMATOCRIT % 32.3* 31.9* MCV fL 93.1 91.1 PLATELETS AUTO 10*3/uL 253 241 Chemistry: Results from last 7 days Lab Units 11/10/23 0442 11/09/23 0502 11/08/23 0543 11/07/23 0455 SODIUM mmol/L 137 138 139 139 POTASSIUM mmol/L 4.0 4.2 4.2 4.1 CHLORIDE mmol/L 101 103 102 103 CO2 mmol/L 29 28 30 29 BUN mg/dL 12 12 9 9 CREATININE mg/dL 0.89 0.91 0.83 0.84 GLUCOSE mg/dL 113* 108* 93 122* MAGNESIUM mg/dL 1.7* 1.8* 1.8* 1.8* CALCIUM mg/dL 9.2 9.2 9.0 8.8 PHOSPHORUS mg/dL -- -- 3.9 4.1 Results from last 7 days Lab Units 11/08/23 0543 11/07/23 0455 11/06/23 0435 AST U/L 12* 14 18 ALT U/L 30 37 50 ALK PHOS U/L 29* 26* 26* BILIRUBIN TOTAL mg/dL 0.7 0.8 0.8 Historical Values: (Includes values prior to this admission) No results found for: PREALBUMIN , TSH , T3FREE , FREET4 , CORTISOL , FEV1 , BVU4HAV , DLCO , RVSP , HDL , LDL No results found for: [id number] , IRON , TIBC , C3 , C4 , KIKE , CANCA , ASO , PSA , CEA , CA125 , CA199 , AFP , CA153 Imaging XR chest 1 view Narrative: XR CHEST 1 VIEW 11/09/2023 10:18 AM CLINICAL INDICATIONS: History of stage IV lung cancer. Cough. Epistaxis COMPARISON: 11/06/2023 FINDINGS: Mass lesion in the right upper lobe is again appreciated Impression: Strandy abnormalities along the periphery of the right lung (more content not included)... [facility] 11-10-2023 Note ------ Attestation signed by Sukhwinder Schafer MD at 11/10/2023 8:50 PM I personally saw and examined the patient on the same date of service as resident/fellow Dr Cervantes. I discussed the findings and therapeutic plan with the resident/fellow Dr Cervantes. I agree with the documentation, except for any edits/updates below. Teaching Physician's Revisions: None Sukhwinder Schafer MD, [facility] ------ Cardiology Progress Note Subjective Objective Interval History Patient was seen and examined at bedside. Patient was lying comfortably in bed. Patient denies any chest pain, shortness of breath, abdominal pain, dizziness or lightheadedness. Objective: Patient Vitals for the past 24 hrs: BP Temp Temp src Pulse Resp SpO2 Weight 11/10/23 0825 99/60 36 ???C (96.8 ???F) [facility] 79 16 -- -- 11/10/23 0500 -- -- -- -- -- -- 122 kg (268 lb 3.2 oz) 11/10/23 0325 109/77 36.5 ???C (97.7 ???F) [facility] 82 15 99 % -- 11/10/23 0011 98/66 36.3 ???C (97.3 ???F) [facility] 72 14 99 % -- 11/09/23 1955 112/77 36.5 ???C (97.7 ???F) [facility] 91 15 99 % -- 11/09/23 1705 110/84 -- -- 96 -- -- -- 11/09/23 1610 97/75 -- -- 75 -- -- -- 11/09/23 1452 102/66 -- -- -- -- -- -- 11/09/23 1200 -- 36.2 ???C (97.2 ???F) Temporal -- -- -- -- 11/09/23 1131 -- -- -- 74 -- -- -- Physical Examination: Physical Exam Constitutional: General: He is not in acute distress. Appearance: Normal appearance. HENT: Right Ear: External ear normal. Left Ear: External ear normal. Nose: Nose normal. Eyes: Extraocular Movements: Extraocular movements intact. Cardiovascular: Rate and Rhythm: Normal rate. Rhythm irregular. Heart sounds: Normal heart sounds. Pulmonary: Breath sounds: Normal breath sounds. No wheezing or rales. Abdominal: General: There is no distension. Palpations: Abdomen is soft. Tenderness: There is no abdominal tenderness. Musculoskeletal: Right lower leg: No edema. Left lower leg: No edema. Neurological: Mental Status: He is alert and oriented to person, place, and time. Psychiatric: Mood and Affect: Mood normal. Behavior: Behavior normal. Relevant Lab Results Encounter Date: 11/04/23 ECG 12 lead Result Value Ventricular Rate 116 QRS DURATION 102 QT Interval 322 QTC CALCULATION(BAZETT) 447 R-Roper 85 T Wave Roper 6 Impression Atrial fibrillation with rapid ventricular response with premature ventricular or aberrantly conducted complexes Nonspecific T wave abnormality Abnormal ECG No previous ECGs available Confirmed by Hanh Staton ([id number]) on 11/06/2023 9:42:20 PM Lab Results Component Value Date TROPONINI 0.03 11/05/2023 No echocardiogram results found for the past 12 months No nuclear medicine results found for the past 12 months Relevant Imaging Results XR chest 1 view Narrative: XR CHEST 1 VIEW 11/09/2023 10:18 AM CLINICAL INDICATIONS: History of stage IV lung cancer. Cough. Epistaxis COMPARISON: 11/06/2023 FINDINGS: Mass lesion in the right upper lobe is again appreciated Impression: Strandy abnormalities along the periphery of the right lung base remain. Left port catheter device is unchanged. Left lung is fully expanded. Overall, stable exam Electronically signed: Whit Quezada. Assessment: Atrial fibrillation with RVR, [id number] score of 1, on metoprolol and Eliquis at home s/p failed cardioversion 2023 Chronic heart failure with reduced ejection fraction EF 35 to 40% 10/2023, NYHA II Stage IV lung cancer on Abraxane/carboplatin History of opioid dependence on Suboxone Plan: Continue amiodarone infusion for rhythm control. Plan for MIA cardioversion today Continue anticoagulation with eliquis in the setting of atrial fibrillation for stroke prophylaxis Continue lopressor, digoxin and cardizem for rate control. Will eventually attempt to transition lopressor to Toprol XL. EP consulted, appreciate recommendations Continue Lasix and Aldactone as tolerated Continue to monitor electrolytes. Maintain potassium more than 4 magnesium more than 2. Cardiology will continue to follow. Please call with any questions. Suman Cervantes MD PGY-3 Internal Medicine resident [facility] 11-09-2023 Note Hospital Medicine Daily Progress Note - 11/09/2023 1:03 PM; Room: [address] [place] [address] Admission: 11/04/2023 11:27 PM; Length of stay: 5 days THE HOSPITALIST TEAM PREFERS TO USE [employer] FOR COMMUNICATION 7AM-7PM. IF I DO NOT RESPOND WITHIN 15 MINUTES, PLEASE PAGE ME/CALL THROUGH THE WINDOWS DESKTOP ENGINEER. FROM 7PM-7AM, PLEASE PAGE [phone](COVR) Code Status: Full Code Barriers to Discharge: A. Fib with RVR Expected Discharge Date: 1 day ? Discharge Destination: home Overview Patient is here for the management of A. Fib with RVR Subjective Patient is seen for evaluation and management of Seen today in his room, alert and in no acute distress Physical Exam HEENT: Normocephalic, atraumatic Cardiovascular: tachycardic with irregular rate and occasional PVC on monitor Respiratory: coughing productive of yellow sputum. no acute respiratory distress, clear to auscultation bilaterally, no wheezing or rales Abdomen: Soft, nontender, nondistended Extremities: No cyanosis, 2+ pedal edema bilaterally. (Improving since yesterday) Neuro: No focal deficits Skin: Warm, dry, no rashes Visit Vitals BP 110/76 Pulse 74 Temp 36.2 ???C (97.2 ???F) (Temporal) Resp 16 Intake/Output Summary (Last 24 hours) at 11/09/2023 1303 Last data filed at 11/09/2023 0959 Gross per 24 hour Intake 1187.05 ml Output 1300 ml Net -112.95 ml Estimated body mass index is 36.12 kg/m??? as calculated from the following: Height as of this encounter: 1.854 m (6' 1 ). Weight as of this encounter: 124 kg (273 lb 12.8 oz). 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 likely switch to Augmentin for total 10 days on discharge Patient will need repeat CT scan chest in 4-6 weeks outpatient His last cycle was 10/25 of Abraxane and carboplatin VTE Prophylaxis: Eliquis Scheduled Meds [START ON 11/10/2023] amoxicillin-pot clavulanate, 1 tablet, oral, BID apixaban, 5 mg, oral, BID buprenorphine-naloxone, 1 tablet, sublingual, BID digoxin, 250 mcg, oral, Daily dilTIAZem, 30 mg, oral, q8h HAILEY furosemide, 40 mg, oral, Daily metoprolol tartrate, 150 mg, oral, BID spironolactone, 50 mg, oral, Daily amiodarone, 1 mg/min, Last Rate: 1 mg/min (11/09/23 1131) Oxygen Therapy, Pertinent Investigations Hematology: Results from last 7 days Lab Units 11/09/23 0502 11/08/23 0544 WBC AUTO 10*3/uL 5.52 4.75 HEMOGLOBIN g/dL 10.3* 10.3* HEMATOCRIT % 31.9* 32.1* MCV fL 91.1 92.8 PLATELETS AUTO 10*3/uL 241 226 Chemistry: Results from last 7 days Lab Units 11/09/23 0502 11/08/23 0543 11/07/23 0455 SODIUM mmol/L 138 139 139 POTASSIUM mmol/L 4.2 4.2 4.1 CHLORIDE mmol/L 103 102 103 CO2 mmol/L 28 30 29 BUN mg/dL 12 9 9 CREATININE mg/dL 0.91 0.83 0.84 GLUCOSE mg/dL 108* 93 122* MAGNESIUM mg/dL 1.8* 1.8* 1.8* CALCIUM mg/dL 9.2 9.0 8.8 PHOSPHORUS mg/dL -- 3.9 4.1 Results from last 7 days Lab Units 11/08/23 0543 11/07/23 0455 11/06/23 0435 AST U/L 12* 14 18 ALT U/L 30 37 50 ALK PHOS U/L 29* 26* 26* BILIRUBIN TOTAL mg/dL 0.7 0.8 0.8 Historical Values: (Includes values prior to this admission) No results found for: PREALBUMIN , TSH , T3FREE , FREET4 , CORTISOL , FEV1 , [id number] , DLCO , RVSP , HDL , LDL No results found for: [id number] , IRON , TIBC , C3 , C4 , KIKE , CANCA , ASO , PSA , CEA , CA125 , CA199 , AFP , CA153 Imaging XR chest 1 view Narrative: XR CHEST 1 VIEW 11/09/2023 10:18 AM CLINICAL INDICATIONS: History of stage IV lung cancer. Cough. Epistaxis COMPARISON: 11/06/2023 FINDINGS: Mass lesion in the right upper lobe is again appreciated Impression: Strandy abnormalities along the periphery of the right lung base remain. Left port catheter device is unchanged. L (more content not included)... [facility] 11-09-2023 Note ------ Attestation signed by Sukhwinder Schafer MD at 11/09/2023 3:23 PM (Updated) I personally saw and examined the patient on the same date of service as resident/fellow Dr Nichols. I discussed the findings and therapeutic plan with the resident/fellow Dr Nichols. I agree with the documentation, except for any edits/updates below. Teaching Physician's Revisions: as follow Patient's ventricular rate has been much better after adding Cardizem and amiodarone IV, currently in the 80s to 90s. But the patient reports that he has been feeling tightness around the chest and difficulty breathing when he lies down and even when he sits. He states that in the past when he converted to sinus rhythm he had the same feeling. We ordered a chest x-ray which was not much different from before although I think that there is more congestion. We repeated BNP and came back elevated at 242 and the presence of normal kidney function We will continue current medications including metoprolol, digoxin, Cardizem, and IV amiodarone Continue anticoagulation MIA and cardioversion in the morning Continue Lasix 40 mg p.o. daily but I will give him additional dose of Lasix IV now and see if that will improve his symptoms Sukhwinder Schafer MD, [facility] ------ Cardiology Progress Note Subjective Subjective: Arvin Julien is a 43 y.o. male who was seen and examined at bedside today morning. Patient reports chest tightness overnight. He says whenever he lies down and closes eyes he feels chest tightness which is new onset and was was not there during this admission or previously before admission. Otherwise he is happy with the leg swelling going away. Objective Objective: Patient Vitals for the past 24 hrs: BP Temp Temp src Pulse Resp SpO2 Weight 11/09/23 0929 110/76 -- -- 82 -- -- -- 11/09/23 0825 111/72 36.4 ???C (97.5 ???F) Temporal 82 16 98 % -- 11/09/23 0508 115/76 36 ???C (96.8 ???F) Temporal 89 16 100 % -- 11/09/23 0454 -- -- -- -- -- -- 124 kg (273 lb 12.8 oz) 11/08/23 2319 102/62 36.3 ???C (97.3 ???F) 82 14 99 % -- 11/08/23 1946 112/72 36.2 ???C (97.2 ???F) Temporal 99 15 98 % -- 11/08/23 1600 104/69 35.9 ???C (96.6 ???F) Temporal 94 16 92 % -- 11/08/23 1330 96/75 -- -- 96 -- 93 % -- 11/08/23 1324 90/57 -- -- 91 -- 96 % -- 11/08/23 1322 77/62 -- -- 95 -- 91 % -- 11/08/23 1226 101/70 36 ???C (96.8 ???F) 102 16 -- -- Physical Examination: GENERAL: AOx3, in no acute distress. HEAD: Atraumatic, normocephalic. EYES: SHAZIA, EOMI. NECK: No JVD present. CARDIAC: RRR. No murmur, rubs, or gallops. RESPIRATORY: CTAB, no increased effort of breathing. ABDOMEN: Soft, nontender, nondistended. EXTREMITIES: no edema, peripheral pulses are 2+ bilaterally. NEURO: No focal deficits Relevant Lab Results Encounter Date: 11/04/23 ECG 12 lead Result Value Ventricular Rate 116 QRS DURATION 102 QT Interval 322 QTC CALCULATION(BAZETT) 447 R-Roper 85 T Wave Roper 6 Impression Atrial fibrillation with rapid ventricular response with premature ventricular or aberrantly conducted complexes Nonspecific T wave abnormality Abnormal ECG No previous ECGs available Confirmed by Hanh Staton ([id number]) on 11/06/2023 9:42:20 PM Lab Results Component Value Date TROPONINI 0.03 11/05/2023 No echocardiogram results found for the past 12 months No nuclear medicine results found for the past 12 months Relevant Imaging Results ECG 12 lead Atrial fibrillation with rapid ventricular response with premature ventricular or aberrantly conducted complexes Nonspecific T wave abnormality Abnormal ECG No previous ECGs available Confirmed by Hanh Staton ([id number]) on 11/06/2023 9:42:20 PM XR chest 1 view Narrative: XR CHEST 1 VIEW 11/06/2023 7:02 AM CLINICAL INDICATIONS: Congestive heart failure. Hypertension. Stage IV lung cancer COMPARISON: 11/05/2023 FINDINGS: One view Impression: Left port catheter device is stable. Masslike area in the right upper lobe remains and presumably represents known lung cancer. Interval improvement with decrease in lung infiltrates. No pneumothorax. No large effusion. Electronically signed: Whit Quezada. Assessment: Atrial fibrillation with RVR, [id number] score of 1, on metoprolol and Eliquis at home s/p failed cardioversion 2023 Chronic heart failure with reduced ejection fraction EF 35 to 40% 10/2023, NYHA II Stage IV lung cancer on Abraxane/carboplatin History of opioid dependence on Suboxone Plan: Continue metoprolol 150 mg twice daily. Patient is still in A fib with HR average of 90. Will eventually like to transition to Toprol XL. Continue digoxin, patient is still in Afib with HR of average 90, we added cardizem 30 mg q8 and monitor heart rate. We started amiodarone infusion yesterday which is to (more content not included)... [facility] 11-09-2023 Note ------ Attestation signed by Galdino Frye MD at 11/09/2023 1:02 PM I reviewed the salient portions of the patient history. I have seen and examined the patient during rounds with the resident/fellow. I repeated the null components of the exam. Agree with the noted assessment and plan. Galdino Frye MD [facility] Pulmonary interventional and Critical Care Medicine ------ PULMONARY PROGRESS NOTE Patient - Arvin Julien Age - 43 y.o. - 1980 [facility] # - [id number] Date of Admission - 11/04/2023 11:27 PM SUBJECTIVE Arvin Julien is a 43 y.o. male presenting for shortness of breath. Pulmonology was consulted for evaluation of a new right sided pleural effusion. Overnight events: continuation of his cough, one episode of epistaxis with nose blowing, one episode of hemoptysis with a 1 inch diameter clot at 3 am 11/08. His bilateral leg swelling continues to decrease. Ultrasound on 11/07 showed significant decrease in pleural effusion after lasix. Thoracentesis was not done as this effusion is likely due to CHF. Medications: Patient is s/p azithromycin and Levaquin. His last dose of Rocephin is on 11/09. medical history: significant for stage IV lung squamous cell carcinoma on Abraxane and carboplatin (last dose was on 10/25,), A-fib on metoprolol and Eliquis, CHF with preserved EF and remote history of opioid dependence currently on Suboxone who was transferred from [facility] to MICU on 11/04 because of difficult to control atrial fibrillation and sepsis from pneumonia. Patient was admitted at [place] since 11/01 and stayed there for 3 days then was transferred to us. Initial workup showed that patient had bilateral pneumonia which can also be progression of lung cancer according to CTA chest report. Patient has been afebrile with no leukocytosis probably as he is immunocompromised from chemotherapy. PMH: has a past medical history of Anxiety, Arrhythmia, Atrial fibrillation (CMS/HCC), Drug abuse (CMS/HCC), GERD (gastroesophageal reflux disease), Irregular heart beat, Pulmonary mass, Shortness of breath, and Sleep apnea. PSH: has a past surgical history that includes Tonsillectomy; Carpal tunnel release (Bilateral, 2019); and Uvulopalatopharyngoplasty (01/2017). SH: reports that he quit smoking about 18 months ago. His smoking use included cigarettes. He has never used smokeless tobacco. He reports that he does not currently use alcohol. He reports that he does not currently use drugs after having used the following drugs: Heroin. Alc/Tobacco/Drug: reports that he does not currently use alcohol. reports that he quit smoking about 18 months ago. His smoking use included cigarettes. He has never used smokeless tobacco. reports that he does not currently use drugs after having used the following drugs: Heroin. Medications: Current Facility-Administered Medications: amiodarone (Nexterone) infusion, 1 mg/min, intravenous, Continuous, Theron Maria MD, Last Rate: 33.3 mL/hr at 11/09/23 0511, 1 mg/min at 11/09/23 0511 apixaban (Eliquis) tablet 5 mg, 5 mg, oral, BID, Avery Samayoa MD, 5 mg at 11/09/23 09 buprenorphine-naloxone (Suboxone) 8-2 mg per SL tablet 1 tablet, 1 tablet, sublingual, BID, Avery Samayoa MD, 1 tablet at 11/09/23 09 cefTRIAXone (Rocephin) IVPB 2 g in NS 50 mL (Mini-Bag Plus), 2 g, intravenous, Once Daily, Rohini Avila MD, Last Rate: 100 mL/hr at 11/09/23 0929, 2 g at 11/09/23 0929 digoxin (Lanoxin) tablet 250 mcg, 250 mcg, oral, Daily, Addison Campos MD, 250 mcg at 11/08/23 1228 dilTIAZem (Cardizem) immediate release tablet 30 mg, 30 mg, oral, q8h HAILEY, Theron Maria MD, 30 mg at 11/09/23 0511 [COMPLETED] metoprolol tartrate (Lopressor) injection 5 mg, 5 mg, intravenous, q15 min PRN, 5 mg at 11/05/23 1035 FOLLOWED BY dilTIAZem (Cardizem) injection 20 mg, 20 mg, intravenous, Once PRN, Avery Samayoa MD furosemide (Lasix) tablet 40 mg, 40 mg, oral, Daily, bA Nichols MD, 40 mg at 11/09/23 0930 melatonin tablet 6 mg, 6 mg, oral, Nightly PRN, Yamilex Sanchez NP, 6 mg at 11/08/23 210 metoprolol tartrate (Lopressor) tablet 150 mg, 150 mg, oral, BID, Theron Maria MD, 150 mg at 11/09/23 0930 ondansetron ODT (Zofran-ODT) disintegrating tablet 4 mg, 4 mg, oral, q8h PRN OR ondansetron HCl (PF) (Zofran) injection 4 mg, 4 mg, intravenous, q6h PRN, Avery Samayoa MD Oxygen Therapy, , inhalation, Continuous PRN, Galdino Frye MD, Given at 11/05/23 0811 polyethylene glycol (Glycolax) packet 17 g, 17 g, oral, Nightly PRN, Avery Samayoa MD spironolactone (Aldactone) tablet 50 mg, 50 mg, oral, Daily, Sukhwinder Schafer MD, 50 mg at 11/09/23 0929 traMADol (Ultram) tablet 50 mg, 50 mg, oral, q4h PRN, Avery Samayoa MD, 50 mg at 11/08/23 0757 Aller (more content not included)... [facility] 11-08-2023 Note Hospital Medicine Daily Progress Note - 11/08/2023 12:16 PM; Room: [address] [place] [address] Admission: 11/04/2023 11:27 PM; Length of stay: 4 days THE HOSPITALIST TEAM PREFERS TO USE [employer] CHAT FOR COMMUNICATION 7AM-7PM. IF I DO NOT RESPOND WITHIN 15 MINUTES, PLEASE PAGE ME/CALL THROUGH THE WINDOWS DESKTOP ENGINEER. FROM 7PM-7AM, PLEASE PAGE [phone](COVR) Code Status: Full Code Barriers to Discharge: A. Fib with RVR Expected Discharge Date: 1 day ? Discharge Destination: home Overview Patient is here for the management of A. Fib with RVR Subjective Patient is seen for evaluation and management of Seen today in his room, alert and in no acute distress Physical Exam HEENT: Normocephalic, atraumatic Cardiovascular: tachycardic with irregular rate and occasional PVC on monitor Respiratory: coughing productive of yellow sputum. no acute respiratory distress, clear to auscultation bilaterally, no wheezing or rales Abdomen: Soft, nontender, nondistended Extremities: No cyanosis, 2+ pedal edema bilaterally. (Improving since yesterday) Neuro: No focal deficits Skin: Warm, dry, no rashes Visit Vitals BP (!) 114/98 (BP Location: Right arm, Patient Position: Sitting) Pulse 106 Temp 35.5 ???C (95.9 ???F) (Temporal) Resp 16 Intake/Output Summary (Last 24 hours) at 11/08/2023 1216 Last data filed at 11/08/2023 1014 Gross per 24 hour Intake 770 ml Output -- Net 770 ml Estimated body mass index is 36.07 kg/m??? as calculated from the following: Height as of this encounter: 1.854 m (6' 1 ). Weight as of this encounter: 124 kg (273 lb 6.4 oz). 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 Patient is still in A fib with HR in 90-110. Currently on amiodarone drip Digoxin and Cardizem added Entresto on hold for now Continue Lasix 40 daily Continue Rocephin for 5 days total. likely switch to Augmentin for total 10 days on discharge Patient will need repeat CT scan chest in 4-6 weeks outpatient His last cycle was 10/25 of Abraxane and carboplatin VTE Prophylaxis: Eliquis Scheduled Meds apixaban, 5 mg, oral, BID buprenorphine-naloxone, 1 tablet, sublingual, BID cefTRIAXone, 2 g, intravenous, Once Daily digoxin, 250 mcg, oral, Daily dilTIAZem, 30 mg, oral, q8h HAILEY furosemide, 40 mg, oral, Daily metoprolol tartrate, 150 mg, oral, BID spironolactone, 50 mg, oral, Daily amiodarone, 1 mg/min Oxygen Therapy, Pertinent Investigations Hematology: Results from last 7 days Lab Units 11/08/23 0544 11/07/23 0455 WBC AUTO 10*3/uL 4.75 5.02 HEMOGLOBIN g/dL 10.3* 10.3* HEMATOCRIT % 32.1* 32.2* MCV fL 92.8 92.8 PLATELETS AUTO 10*3/uL 226 212 Chemistry: Results from last 7 days Lab Units 11/08/23 0543 11/07/23 0455 11/06/23 0435 SODIUM mmol/L 139 139 138 POTASSIUM mmol/L 4.2 4.1 3.9 CHLORIDE mmol/L 102 103 101 CO2 mmol/L 30 29 30 BUN mg/dL 9 9 11 CREATININE mg/dL 0.83 0.84 0.92 GLUCOSE mg/dL 93 122* 104* MAGNESIUM mg/dL 1.8* 1.8* 1.9 CALCIUM mg/dL 9.0 8.8 8.9 PHOSPHORUS mg/dL 3.9 4.1 4.3 Results from last 7 days Lab Units 11/08/23 0543 11/07/23 0455 11/06/23 0435 AST U/L 12* 14 18 ALT U/L 30 37 50 ALK PHOS U/L 29* 26* 26* BILIRUBIN TOTAL mg/dL 0.7 0.8 0.8 Historical Values: (Includes values prior to this admission) No results found for: PREALBUMIN , TSH , T3FREE , FREET4 , CORTISOL , FEV1 , TEZ7EDT , DLCO , RVSP , HDL , LDL No results found for: [id number] , IRON , TIBC , C3 , C4 , KIKE , CANCA , ASO , PSA , CEA , CA125 , CA199 , AFP , CA153 Imaging ECG 12 lead Atrial fibrillation with rapid ventricular response with premature ventricular or aberrantly conducted complexes Nonspecific T wave abnormality Abnormal ECG No previous ECGs available Confirmed by Hanh Staton ([id number]) on 11/06/2023 9:42:20 PM XR chest 1 view Narrative: XR CHEST 1 VIEW 11/06/2023 7:02 AM CLINICAL INDICATIONS: Congestive heart failure. Hypertension. Stage IV lung cancer COMPARISON: 11/05/2023 FINDINGS: One view Impression: Lef (more content not included)... [facility] 11-08-2023 Note ------ Attestation signed by Sukhwinder Schafer MD at 11/08/2023 3:23 PM I personally saw and examined the patient on the same date of service as resident/fellow Dr Nichols. I discussed the findings and therapeutic plan with the resident/fellow Dr Nichols. I agree with the documentation, except for any edits/updates below. Teaching Physician's Revisions: None Patient continues to be in A-fib and ventricular rate still jumps at time. Otherwise the patient feels better. His breathing is better and legs edema is much down On examination the lungs are clear to auscultation, cardiovascular system regular irregularity, extremities trace edema next We will add Cardizem 30 mg every 6 hours to his regimen and hopefully will help to control his ventricular rate We discussed the case with Dr. Ceja and he recommended to try again amiodarone IV for 48 hours and repeat attempt of cardioversion. I discussed that with the patient and he is agreeable. Sukhwinder Schafer MD, [facility] ------ Cardiology Progress Note Subjective Subjective: Arvin Julien is a 43 y.o. male who was seen and examined at bedside today morning. He feels better today. Patient was lying comfortably in bed. Patient denies any chest pain, shortness of breath, abdominal pain, dizziness or lightheadedness. His leg swelling is much improved today. Objective Objective: Patient Vitals for the past 24 hrs: BP Temp Temp src Pulse Resp SpO2 Height Weight 11/08/23 0750 (!) 114/98 35.5 ???C (95.9 ???F) Temporal 106 16 -- -- -- 11/08/23 0512 -- -- -- -- -- -- -- 124 kg (273 lb 6.4 oz) 11/08/23 0415 93/51 36.2 ???C (97.2 ???F) Temporal 95 12 99 % -- -- 11/07/23 2350 114/86 36.5 ???C (97.7 ???F) Temporal 91 16 98 % -- -- 11/07/23 2200 -- -- -- -- -- -- 1.854 m (6' 1 ) -- 11/07/23 1955 131/79 36.4 ???C (97.5 ???F) Temporal 108 15 98 % -- -- 11/07/23 1609 115/68 36.7 ???C (98.1 ???F) Temporal 102 -- 96 % -- -- 11/07/23 1500 115/68 36.7 ???C (98.1 ???F) Temporal 98 -- 97 % -- -- 11/07/23 1205 -- -- -- (!) 112 -- -- -- -- 11/07/23 1114 108/84 36.8 ???C (98.3 ???F) Oral (!) 115 14 100 % -- -- 11/07/23 1038 130/88 -- -- (!) 121 -- -- -- -- Physical Examination: GENERAL: AOx3, in no acute distress. HEAD: Atraumatic, normocephalic. EYES: SHAZIA, EOMI. NECK: No JVD present. CARDIAC: RRR. No murmur, rubs, or gallops. RESPIRATORY: CTAB, no increased effort of breathing. ABDOMEN: Soft, nontender, nondistended. EXTREMITIES: 1+ up to ankles edema bilaterally, peripheral pulses are 2+ bilaterally. NEURO: No focal deficits Relevant Lab Results Encounter Date: 11/04/23 ECG 12 lead Result Value Ventricular Rate 116 QRS DURATION 102 QT Interval 322 QTC CALCULATION(BAZETT) 447 R-Roper 85 T Wave Roper 6 Impression Atrial fibrillation with rapid ventricular response with premature ventricular or aberrantly conducted complexes Nonspecific T wave abnormality Abnormal ECG No previous ECGs available Confirmed by Hanh Staton ([id number]) on 11/06/2023 9:42:20 PM Lab Results Component Value Date TROPONINI 0.03 11/05/2023 No echocardiogram results found for the past 12 months No nuclear medicine results found for the past 12 months Relevant Imaging Results ECG 12 lead Atrial fibrillation with rapid ventricular response with premature ventricular or aberrantly conducted complexes Nonspecific T wave abnormality Abnormal ECG No previous ECGs available Confirmed by Hanh Staton ([id number]) on 11/06/2023 9:42:20 PM XR chest 1 view Narrative: XR CHEST 1 VIEW 11/06/2023 7:02 AM CLINICAL INDICATIONS: Congestive heart failure. Hypertension. Stage IV lung cancer COMPARISON: 11/05/2023 FINDINGS: One view Impression: Left port catheter device is stable. Masslike area in the right upper lobe remains and presumably represents known lung cancer. Interval improvement with decrease in lung infiltrates. No pneumothorax. No large effusion. Electronically signed: Whit Quezada. Assessment: Atrial fibrillation with RVR, [id number] score of 1, on metoprolol and Eliquis at home s/p failed cardioversion 2023 Chronic heart failure with reduced ejection fraction EF 35 to 40% 10/2023, NYHA II Stage IV lung cancer on Abraxane/carboplatin History of opioid dependence on Suboxone Plan: Continue metoprolol to 150 mg twice daily. Patient is still in A fib with HR in 90-110. Will eventually like to transition to Toprol XL. Continue digoxin, patient is still in Afib with HR in 90-110, we will add cardizem 30 mg q8 today and monitor heart rate. Continue aldactone 50 mg daily, Cr is stable. Hold off starting entresto for now as blood pressure is on lower side Patient was on Lasix 40 IV BID, we will transition to oral Lasix today Patient's dry cell tester had recommended rate control due to failed cardiove (more content not included)... [facility] 11-08-2023 Note ------ Attestation signed by Galdino Frye MD at 11/08/2023 3:15 PM I reviewed the salient portions of the patient history. I have seen and examined the patient during rounds with the resident/fellow. I repeated the null components of the exam. Agree with the noted assessment and plan. Galdino Frye MD [facility] Pulmonary interventional and Critical Care Medicine ------ PULMONARY PROGRESS NOTE Patient - Arvin Julien Age - 43 y.o. - 1980 [facility] # - [id number] Date of Admission - 11/04/2023 11:27 PM SUBJECTIVE He has no new complaints overnight. His productive cough from yesterday is improving. His bilateral leg swelling has decreased. PMH: has a past medical history of Anxiety, Arrhythmia, Atrial fibrillation ([facility]), Drug abuse (CMS/[facility]), GERD (gastroesophageal reflux disease), Irregular heart beat, Pulmonary mass, Shortness of breath, and Sleep apnea. PSH: has a past surgical history that includes Tonsillectomy; Carpal tunnel release (Bilateral, 2019); and Uvulopalatopharyngoplasty (01/2017). SH: reports that he quit smoking about 18 months ago. His smoking use included cigarettes. He has never used smokeless tobacco. He reports that he does not currently use alcohol. He reports that he does not currently use drugs after having used the following drugs: Heroin. Alc/Tobacco/Drug: reports that he does not currently use alcohol. reports that he quit smoking about 18 months ago. His smoking use included cigarettes. He has never used smokeless tobacco. reports that he does not currently use drugs after having used the following drugs: Heroin. Medications: Current Facility-Administered Medications: apixaban (Eliquis) tablet 5 mg, 5 mg, oral, BID, Avery Samayoa MD, 5 mg at 11/07/232119 buprenorphine-naloxone (Suboxone) 8-2 mg per SL tablet 1 tablet, 1 tablet, sublingual, BID, Avery Samayoa MD, 1 tablet at 11/08/23 0820 cefTRIAXone (Rocephin) IVPB 2 g in NS 50 mL (Mini-Bag Plus), 2 g, intravenous, Once Daily, Rohini Avila MD, Stopped at 11/07/23 1111 digoxin (Lanoxin) tablet 250 mcg, 250 mcg, oral, Daily, Addison Campos MD, 250 mcg at 11/07/23 1205 [COMPLETED] metoprolol tartrate (Lopressor) injection 5 mg, 5 mg, intravenous, q15 min PRN, 5 mg at 11/05/23 1035 FOLLOWED BY dilTIAZem (Cardizem) injection 20 mg, 20 mg, intravenous, Once PRN, Avrey Samayoa MD furosemide (Lasix) injection 40 mg, 40 mg, intravenous, Daily, Addison Campos MD, 40 mg at 11/07/23 1040 melatonin tablet 6 mg, 6 mg, oral, Nightly PRN, Yamilex Sanchez NP, 6 mg at 11/06/233 metoprolol tartrate (Lopressor) tablet 150 mg, 150 mg, oral, BID, Theron Maria MD, 150 mg at 11/07/232119 ondansetron ODT (Zofran-ODT) disintegrating tablet 4 mg, 4 mg, oral, q8h PRN OR ondansetron HCl (PF) (Zofran) injection 4 mg, 4 mg, intravenous, q6h PRN, Avery Samayoa MD Oxygen Therapy, , inhalation, Continuous PRN, Galdino Frye MD, Given at 11/05/23 0811 oxymetazoline (Afrin) 0.05 % nasal spray 2 spray, 2 spray, Each Nostril, q12h PRN, Clayton Seay MD polyethylene glycol (Glycolax) packet 17 g, 17 g, oral, Nightly PRN, Avery Samayoa MD spironolactone (Aldactone) tablet 50 mg, 50 mg, oral, Daily, Sukhwinder Schafer MD, 50 mg at 11/07/23 1038 traMADol (Ultram) tablet 50 mg, 50 mg, oral, q4h PRN, Avery Samayoa MD, 50 mg at 11/08/23 1707 Allergies: Patient has no known allergies. Family history: Family history is unknown by patient. ROS: Review of Systems Constitutional: Negative for chills and fever. HENT: Positive for congestion. Cardiovascular: Positive for irregular heartbeat and leg swelling (improving). Respiratory: Positive for cough and sputum production. Gastrointestinal: Negative for abdominal pain, constipation, diarrhea, nausea and vomiting. Genitourinary: Negative for dysuria and hematuria. Allergic/Immunologic: Immune compromised (on chemo) Physical Exam Ht Readings from Last 1 Encounters: 11/07/23 1.854 m (6' 1 ) Wt Readings from Last 1 Encounters: 11/08/23 124 kg (273 lb 6.4 oz) height is 1.854 m (6' 1 ) and weight is 124 kg (273 lb 6.4 oz). His temporal temperature is 35.5 ???C (95.9 ???F). His blood pressure is 114/98 (abnormal) and his pulse is 106. His respiration is 16 and oxygen saturation is 99%. Intake/Output Summary (Last 24 hours) at 11/08/2023 0841 Last data filed at 11/08/2023 0600 Gross per 24 hour Intake 1680 ml Output -- Net 1680 ml General: No acute distress, obese HEENT: Normocephalic, atraumatic Cardiovascular: tachycardic with irregular rate and occasional PVC on monitor Respiratory: coughing productive of yellow sputum. no acute respiratory distress, clear to auscultation bilaterally, no wheezing or rales Abdomen: Soft, nontender, nond (more content not included)... [facility] 11-07-2023 Note 11/07/23 1320 Admission Assessment Questions Verify insurance with patient Yes Do you understand medical disease or what brought you into the hospital? Yes Who is your current PCP? needs [facility] provider near [place] Can I schedule a follow up appointment for you at the time of discharge? Yes (afternoons) Do you understand why you are taking your current medications? Yes Are you taking your medications as prescribed? No (wasn't taking medications as prescribed but will not ) Did patient provide teach back? No Pharmacy Bedside Delivery Status Interested Does the patient have a medical case manager assigned to them through their insurance? No Living Arrangement (Current/Prior to Hospitalization) Private residence;Home self care (lives w/family one story home. 3 entry stairs) Does the patient have history of HHC or SNF? No Assistive Device Not applicable Patient's goal for discharge home Was patient reminded that goal for discharge is 11am? No Does the patient have transportation at discharge? Yes Type of Residence Private residence Is PT/OT appropriate? No Is PT/OT ordered? No Is SW consult appropriate? No Is SW consult ordered? No Do you understand the benefits of MyChart? Yes Were you able to send link and activate MyChart? MyChart already active [facility] 11-07-2023 Note Patient admitted to the hospital for: Community acquired pneumonia. No current Echo report available at the time of this documentation. Last echo noted from 2022, reports EF 45-50%, which does Not qualify for Cardiac Rehab services per CMS eligibility criteria. A Cardiac Rehab referral diagnosis and code must also meet CMS criteria. Phylicia Ibanez RN, BSN Cardiology Outpatient Coordinator Cardiopulmonary Rehab [facility] 11-07-2023 Note ------ Attestation signed by Sukhwinder Schafer MD at 11/07/2023 3:37 PM I personally saw and examined the patient on the same date of service as resident/fellow Dr Nichols. I discussed the findings and therapeutic plan with the resident/fellow Dr Nichols. I agree with the documentation, except for any edits/updates below. Teaching Physician's Revisions: None Patient's heart rate still goes up to the 120s with exertion despite metoprolol and digoxin therefore will increase metoprolol to 150 mg twice daily and continue digoxin 0.25 mg daily. Continue anticoagulation with Eliquis. Continue Aldactone and Lasix but will switch Lasix to p.o. Maintain electrolytes under good control. Will ask EP cardiology to see him to evaluate Sukhwinder Schafer MD, [facility] ------ Cardiology Progress Note Subjective Subjective: Arvin Julien is a 43 y.o. male who was seen and examined at bedside today morning. He feels better today than yesterday. Patient was lying comfortably in bed. Patient denies any chest pain, shortness of breath, abdominal pain, dizziness or lightheadedness. His leg swelling is much improved today. Objective Objective: Patient Vitals for the past 24 hrs: BP Temp Temp src Pulse Resp SpO2 Weight 11/07/23 0812 112/65 36.1 ???C (97 ???F) Temporal (!) 112 14 100 % -- 11/07/23 0540 -- -- -- -- -- -- 125 kg (276 lb 6.4 oz) 11/07/23 0000 99/72 36.2 ???C (97.2 ???F) Temporal 98 14 97 % -- 11/06/230 -- -- -- (!) 116 -- -- -- 11/06/233 118/83 -- -- (!) 137 -- -- -- 11/06/231999 116/80 36 ???C (96.8 ???F) Temporal 108 17 96 % -- 11/06/23 1537 -- -- -- 99 -- -- -- 11/06/23 1531 -- -- -- -- -- 96 % -- 11/06/23 1530 99/72 36.7 ???C (98 ???F) Temporal 99 11 (!) 88 % -- 11/06/23 1300 100/74 -- -- 87 12 93 % -- 11/06/23 1242 109/69 36.6 ???C (97.9 ???F) Temporal 92 15 94 % 130 kg (286 lb 2.5 oz) 11/06/23 1110 -- -- -- 106 -- -- -- Physical Examination: GENERAL: AOx3, in no acute distress. HEAD: Atraumatic, normocephalic. EYES: SHAZIA, EOMI. NECK: No JVD present. CARDIAC: RRR. No murmur, rubs, or gallops. RESPIRATORY: CTAB, no increased effort of breathing. ABDOMEN: Soft, nontender, nondistended. EXTREMITIES: 1+ up to ankles edema bilaterally, peripheral pulses are 2+ bilaterally. NEURO: No focal deficits Relevant Lab Results Encounter Date: 11/04/23 ECG 12 lead Result Value Ventricular Rate 116 QRS DURATION 102 QT Interval 322 QTC CALCULATION(BAZETT) 447 R-Roper 85 T Wave Roper 6 Impression Atrial fibrillation with rapid ventricular response with premature ventricular or aberrantly conducted complexes Nonspecific T wave abnormality Abnormal ECG No previous ECGs available Confirmed by Hanh Staton ([id number]) on 11/06/2023 9:42:20 PM Lab Results Component Value Date TROPONINI 0.03 11/05/2023 No echocardiogram results found for the past 12 months No nuclear medicine results found for the past 12 months Relevant Imaging Results ECG 12 lead Atrial fibrillation with rapid ventricular response with premature ventricular or aberrantly conducted complexes Nonspecific T wave abnormality Abnormal ECG No previous ECGs available Confirmed by Hanh Staton ([id number]) on 11/06/2023 9:42:20 PM XR chest 1 view Narrative: XR CHEST 1 VIEW 11/06/2023 7:02 AM CLINICAL INDICATIONS: Congestive heart failure. Hypertension. Stage IV lung cancer COMPARISON: 11/05/2023 FINDINGS: One view Impression: Left port catheter device is stable. Masslike area in the right upper lobe remains and presumably represents known lung cancer. Interval improvement with decrease in lung infiltrates. No pneumothorax. No large effusion. Electronically signed: Whit Quezada. Assessment: Atrial fibrillation with RVR, [id number] score of 1, on metoprolol and Eliquis at home s/p failed cardioversion 2023 Chronic heart failure with reduced ejection fraction EF 35 to 40% 10/2023, NYHA II Stage IV lung cancer on Abraxane/carboplatin History of opioid dependence on Suboxone Plan: Increase metoprolol to 150 mg twice daily. Patient is still in A fib with HR in 100's. Will eventually like to transition to Toprol XL. Added digoxin yesterday which has improved rate control, continue digoxin, patient is still in Afib with HR in 100-110, might add cardizem if still not rate controlled. Continue aldactone 50 mg daily, Cr is stable at 0.8 Hold off starting entresto for now as blood pressure is on lower side at 112/65 Patient is net negative 4 L, patient is still on Lasix 40 IV BID, we will transition to oral Lasix today Patient's dry cell tester had recommended rate control due to failed cardioversion with persistent atrial fibrillation on moderate dose amiodarone in the setting of significant lung disease Continue anticoagulation with Eliquis for (more content not included)... [facility] 11-07-2023 Note Hospital Medicine Daily Progress Note - 11/07/2023 2:30 PM; Room: [address] [place] [address] Admission: 11/04/2023 11:27 PM; Length of stay: 3 days THE HOSPITALIST TEAM PREFERS TO USE [employer] CHAT FOR COMMUNICATION 7AM-7PM. IF I DO NOT RESPOND WITHIN 15 MINUTES, PLEASE PAGE ME/CALL THROUGH THE WINDOWS DESKTOP ENGINEER. FROM 7PM-7AM, PLEASE PAGE [phone](COVR) Code Status: Full Code Barriers to Discharge: cardiology eval Expected Discharge Date: 2-3 days Discharge Destination: home Overview Patient is seen for evaluation and management of dyspnea, HF and afib. Subjective Seen at bedside. HR in teens. Eating breakfast. Chest feels tight when he takes a deep breath, no chest pain per se no n/v/d Physical Exam Visit Vitals BP 108/84 (BP Location: Right arm, Patient Position: Sitting) Pulse (!) 112 Temp 36.8 ???C (98.3 ???F) (Oral) Resp 14 Intake/Output Summary (Last 24 hours) at 11/07/2023 1430 Last data filed at 11/06/2023 1800 Gross per 24 hour Intake 240 ml Output 250 ml Net -10 ml Estimated body mass index is 36.47 kg/m??? as calculated from the following: Height as of 07/16/22: 1.854 m (6' 1 ). Weight as of this encounter: 125 kg (276 lb 6.4 oz). GENERAL: The patient is well developed. No distress. Eating breakfast VITAL SIGNS: Reviewed in the EMR. HEENT: Nonicteric sclerae, EOMI. HEART: irregular rhythm, tachy LUNGS: Clear to auscultation bilaterally. No wheezing and crackles. ABDOMEN: Soft, positive bowel sounds, nontender SKIN: No rash, or ulcers. NEUROLOGIC: Cranial nerves II-XII intact without motor/sensory deficit. MSK: Muscle wasting absent. no tenderness or swelling. Active Inpatient Problems Principal Problem: Community acquired pneumonia, bilateral Active Problems: Squamous cell carcinoma of lung, stage IV (CMS/HCC) Chronic atrial fibrillation (CMS/HCC) Acute on chronic heart failure with preserved ejection fraction (CMS/HCC) Atrial fibrillation with rapid ventricular response (CMS/HCC) Hypomagnesemia Hypoalbuminemia stage IV lung cancer, squamous cell carcinoma Assessment and Plan Cardiology following for afib, heart rate is better controlled. Continue PNA treatment with IV rocephin. Daily labs, IC and ambulation. Continue metoprolol 100mg BID, lasix, digoxin . Eliquis for AC Hem onc following for lung cancer. Labs stable. Pulmonary was also consulted on admit. Will follow up on their recs. Continue suboxone Regular diet Scheduled Meds apixaban, 5 mg, oral, BID buprenorphine-naloxone, 1 tablet, sublingual, BID cefTRIAXone, 2 g, intravenous, Once Daily digoxin, 250 mcg, oral, Daily furosemide, 40 mg, intravenous, Daily metoprolol tartrate, 150 mg, oral, BID spironolactone, 50 mg, oral, Daily Oxygen Therapy, Pertinent Investigations Hematology: Results from last 7 days Lab Units 11/07/23 0455 11/06/23 0435 WBC AUTO 10*3/uL 5.02 5.54 HEMOGLOBIN g/dL 10.3* 10.1* HEMATOCRIT % 32.2* 30.6* MCV fL 92.8 91.1 PLATELETS AUTO 10*3/uL 212 203 Chemistry: Results from last 7 days Lab Units 11/07/23 0455 11/06/23 0435 11/05/23 1218 SODIUM mmol/L 139 138 136 POTASSIUM mmol/L 4.1 3.9 3.9 CHLORIDE mmol/L 103 101 100 CO2 mmol/L 29 30 28 BUN mg/dL 9 11 9 CREATININE mg/dL 0.84 0.92 0.90 GLUCOSE mg/dL 122* 104* 100 MAGNESIUM mg/dL 1.8* 1.9 1.9 CALCIUM mg/dL 8.8 8.9 8.5* PHOSPHORUS mg/dL 4.1 4.3 3.4 Results from last 7 days Lab Units 11/07/23 0455 11/06/23 0435 11/05/23 0416 AST U/L 14 18 30 ALT U/L 37 50 69* ALK PHOS U/L 26* 26* 32* BILIRUBIN TOTAL mg/dL 0.8 0.8 0.7 Historical Values: (Includes values prior to this admission) No results found for: PREALBUMIN , TSH , T3FREE , FREET4 , CORTISOL , FEV1 , [id number] , DLCO , RVSP , HDL , LDL No results found for: [id number] , IRON , TIBC , C3 , C4 , KIKE , CANCA , ASO , PSA , CEA , CA125 , CA199 , AFP , CA153 Imaging ECG 12 lead Atrial fibrillation with rapid ventricular response with premature ventricular or aberrantly conducted complexes Nonspecific T wave abnormality Abnormal ECG No previous ECGs available Confirmed by Hanh Staton ([id number]) on 11/06/2023 9:42:20 PM XR chest 1 view Narrative: XR CHEST 1 VIEW 11/06/2023 7:02 AM CLINICAL INDICATIONS: Congestive heart failure. Hypertension. Stage IV lung cancer COMPARISON: 11/05/2023 FINDINGS: One view Impression: Left port catheter device is stable. Masslike area in the right upper lobe remains and presumably represents known lung cancer. Interval improvement with decrease in lung infiltrates. No pneumothorax. No large effusion. Electronically signed: Whit Quezada. Discharge Planning Expected Discharge Disposition: Home or Self Care () Signed Garrett Duran MD Hospital Medicine 11/07/2023 2:30 PM [facility] 11-06-2023 Note Hospital Medicine Daily Progress Note - 11/06/2023 11:47 AM; Room: 3101/3101-01 Admission: 11/04/2023 11:27 PM; Length of stay: 2 days THE HOSPITALIST TEAM PREFERS TO USE [employer] FOR COMMUNICATION 7AM-7PM. IF I DO NOT RESPOND WITHIN 15 MINUTES, PLEASE PAGE ME/CALL THROUGH THE WINDOWS DESKTOP ENGINEER. FROM 7PM-7AM, PLEASE PAGE [phone](COVR) Code Status: Full Code Barriers to Discharge: cardiology eval Expected Discharge Date: 2-3 days Discharge Destination: home Overview Patient is seen for evaluation and management of dyspnea, HF and afib. Subjective Seen at bedside. HR in 120s, no chest pain nausea vomiting. No palpitation. Physical Exam Visit Vitals BP 98/76 Pulse 106 Temp 36.6 ???C (97.9 ???F) (Temporal) Resp 21 Intake/Output Summary (Last 24 hours) at 11/06/2023 1147 Last data filed at 11/05/2023 1820 Gross per 24 hour Intake 799.19 ml Output 400 ml Net 399.19 ml Estimated body mass index is 37.32 kg/m??? as calculated from the following: Height as of 07/16/22: 1.854 m (6' 1 ). Weight as of this encounter: 128 kg (282 lb 13.6 oz). GENERAL: The patient is well developed. No distress. Eating breakfast VITAL SIGNS: Reviewed in the EMR. HEENT: Nonicteric sclerae, EOMI. HEART: irregular rhythm, tachy LUNGS: Clear to auscultation bilaterally. No wheezing and crackles. ABDOMEN: Soft, positive bowel sounds, nontender SKIN: No rash, or ulcers. NEUROLOGIC: Cranial nerves II-XII intact without motor/sensory deficit. MSK: Muscle wasting absent. no tenderness or swelling. Active Inpatient Problems Principal Problem: Community acquired pneumonia, bilateral Active Problems: Squamous cell carcinoma of lung, stage IV (CMS/HCC) Chronic atrial fibrillation (CMS/HCC) Acute on chronic heart failure with preserved ejection fraction (CMS/HCC) stage IV lung cancer, squamous cell carcinoma Assessment and Plan Cardiology following. Continue PNA treatment with IV rocephin. Daily labs, IC and ambulation. Continue metoprolol 100mg BID, lasix, digoxin added. Eliquis for AC Hem onc following for lung cancer. Labs stable. Regular diet Scheduled Meds apixaban, 5 mg, oral, BID buprenorphine-naloxone, 1 tablet, sublingual, BID cefTRIAXone, 2 g, intravenous, Once Daily digoxin, 250 mcg, intravenous, q6h [START ON 11/07/2023] digoxin, 250 mcg, oral, Daily furosemide, 40 mg, intravenous, BID with meals metoprolol tartrate, 100 mg, oral, BID pantoprazole, 40 mg, intravenous, Daily before breakfast Or pantoprazole, 40 mg, oral, Daily before breakfast spironolactone, 50 mg, oral, Daily Oxygen Therapy, Pertinent Investigations Hematology: Results from last 7 days Lab Units 11/06/23 0435 11/05/23 0416 WBC AUTO 10*3/uL 5.54 5.87 HEMOGLOBIN g/dL 10.1* 10.5* HEMATOCRIT % 30.6* 32.6* MCV fL 91.1 92.9 PLATELETS AUTO 10*3/uL 203 228 Chemistry: Results from last 7 days Lab Units 11/06/23 0435 11/05/23 1218 11/05/23 0416 SODIUM mmol/L 138 136 136 POTASSIUM mmol/L 3.9 3.9 3.6 CHLORIDE mmol/L 101 100 102 CO2 mmol/L 30 28 27 BUN mg/dL 11 9 13 CREATININE mg/dL 0.92 0.90 1.00 GLUCOSE mg/dL 104* 100 114* MAGNESIUM mg/dL 1.9 1.9 1.7* CALCIUM mg/dL 8.9 8.5* 8.3* PHOSPHORUS mg/dL 4.3 3.4 3.5 Results from last 7 days Lab Units 11/06/23 0435 11/05/23 0416 AST U/L 18 30 ALT U/L 50 69* ALK PHOS U/L 26* 32* BILIRUBIN TOTAL mg/dL 0.8 0.7 Historical Values: (Includes values prior to this admission) No results found for: PREALBUMIN , TSH , T3FREE , FREET4 , CORTISOL , FEV1 , RIQ5EGC , DLCO , RVSP , HDL , LDL No results found for: [id number] , IRON , TIBC , C3 , C4 , KIKE , CANCA , ASO , PSA , CEA , CA125 , CA199 , AFP , CA153 Imaging XR chest 1 view Narrative: XR CHEST 1 VIEW 11/06/2023 7:02 AM CLINICAL INDICATIONS: Congestive heart failure. Hypertension. Stage IV lung cancer COMPARISON: 11/05/2023 FINDINGS: One view Impression: Left port catheter device is stable. Masslike area in the right upper lobe remains and presumably represents known lung cancer. Interval improvement with decrease in lung infiltrates. No pneumothorax. No large effusion. Electronically signed: Whit Quezada. Discharge Planning Signed Garrett Duran MD [facility] Medicine 11/06/2023 11:47 AM [facility] 11-06-2023 Note ------ Attestation signed by Sukhwinder Schafer MD at 11/06/2023 2:03 PM I personally saw and examined the patient on the same date of service as resident/fellow Dr Nichols. I discussed the findings and therapeutic plan with the resident/fellow Dr Nichols. I agree with the documentation, except for any edits/updates below. Teaching Physician's Revisions: None Patient continues to be in A-fib, heart rate appears to be better while he is sitting however he states that last night he jumped high. Shortness of breath is much better. X-ray appears better. Blood pressure is higher 90s to 100s Continue metoprolol 100 mg twice daily Will load him with digoxin IV today for better ventricular rate control Continue anticoagulation Continue Lasix IV for today Sukhwinder Schafer MD, [facility] ------ Cardiology Progress Note Subjective Subjective: Arvin Julien is a 43 y.o. male who was seen and examined at bedside today morning. He feels better today than yesterday. Patient was lying comfortably in bed. Patient denies any chest pain, shortness of breath, abdominal pain, dizziness or lightheadedness Objective Objective: Patient Vitals for the past 24 hrs: BP Temp Temp src Pulse Resp SpO2 Weight 11/06/23 0900 98/76 -- -- (!) 123 21 -- -- 11/06/23 0725 (!) 103/91 -- -- (!) 114 16 -- -- 11/06/23 0700 85/59 -- -- 101 10 -- -- 11/06/23 0600 71/51 -- -- 102 11 -- -- 11/06/23 0516 91/66 -- -- 105 12 -- -- 11/06/23 0503 -- -- -- -- -- -- 128 kg (282 lb 13.6 oz) 11/06/23 0402 98/77 36.6 ???C (97.9 ???F) Temporal 104 12 96 % -- 11/06/23 0200 101/57 -- -- 102 12 -- -- 11/06/23 0130 (!) 113/97 -- -- (!) 111 14 -- -- 11/06/23 0100 103/85 -- -- 104 15 -- -- 11/06/23 0030 109/70 -- -- 102 14 -- -- 11/06/23 0000 103/67 36.4 ???C (97.5 ???F) Temporal 104 13 96 % -- 11/05/23 2230 (!) 125/91 -- -- (!) 127 16 -- -- 11/05/23 2200 108/89 -- -- (!) 132 16 -- -- 11/05/233 (!) 130/100 -- -- (!) 160 -- -- -- 11/05/231999 (!) 135/113 36.6 ???C (97.9 ???F) Temporal (!) 141 20 96 % -- 11/05/23 1900 (!) 128/97 -- Temporal (!) 140 12 -- -- 11/05/23 1835 (!) 138/101 -- -- (!) 154 13 -- -- 11/05/23 1820 (!) 134/121 36.7 ???C (98 ???F) -- (!) 147 19 96 % -- 11/05/23 1600 110/85 -- -- (!) 125 17 96 % -- 11/05/23 1500 130/90 -- -- (!) 123 14 97 % -- 11/05/23 1400 (!) 134/101 -- -- (!) 117 14 95 % -- 11/05/23 1300 130/78 -- -- (!) 114 13 94 % -- 11/05/23 1200 108/79 -- -- 101 12 98 % -- 11/05/23 1100 112/86 -- -- (!) 113 15 96 % -- Physical Examination: GENERAL: AOx3, in no acute distress. HEAD: Atraumatic, normocephalic. EYES: SHAZIA, EOMI. NECK: No JVD present. CARDIAC: RRR. No murmur, rubs, or gallops. RESPIRATORY: CTAB, no increased effort of breathing. ABDOMEN: Soft, nontender, nondistended. EXTREMITIES: No lower extremity edema, peripheral pulses are 2+ bilaterally. NEURO: No focal deficits Relevant Lab Results Encounter Date: 11/04/23 ECG 12 lead Result Value Ventricular Rate 116 QRS DURATION 102 QT Interval 322 QTC CALCULATION(BAZETT) 447 R-Roper 85 T Wave Roper 6 Impression Atrial fibrillation with rapid ventricular response with premature ventricular or aberrantly conducted complexes Nonspecific T wave abnormality Abnormal ECG No previous ECGs available Lab Results Component Value Date TROPONINI 0.03 11/05/2023 No echocardiogram results found for the past 12 months No nuclear medicine results found for the past 12 months Relevant Imaging Results XR chest 1 view Narrative: XR CHEST 1 VIEW 11/06/2023 7:02 AM CLINICAL INDICATIONS: Congestive heart failure. Hypertension. Stage IV lung cancer COMPARISON: 11/05/2023 FINDINGS: One view Impression: Left port catheter device is stable. Masslike area in the right upper lobe remains and presumably represents known lung cancer. Interval improvement with decrease in lung infiltrates. No pneumothorax. No large effusion. Electronically signed: Whit Quezada. Assessment: Atrial fibrillation with RVR, [id number] score of 1, on metoprolol and Eliquis at home s/p failed cardioversion 2023 Chronic heart failure with reduced ejection fraction EF 35 to 40% 10/2023, NYHA II Stage IV lung cancer on Abraxane/carboplatin History of opioid dependence on Suboxone Plan: Continue metoprolol 100 mg twice daily. Uptitrate as needed for rate control. Patient is still in A fib with HR in 120's, will add digoxin today IV and then transition to oral digoxin tomorrow. Continue aldactone 50 mg daily, Cr is stable at 0.9 Hold off starting entresto for now as blood pressure is on lower side at 98/76 CXR today shows improvement as compared to yesterday, patient is net negative 2.4 L, patient is still on Lasix 40 IV BID, we will transition to oral Lasix tomorrow Patient's dry cell tester had recom (more content not included)... [facility] 11-05-2023 Note ------ Attestation signed by Galdino Frye MD at 11/05/2023 12:35 PM I reviewed the salient portions of the patient history. I have seen and examined the patient during rounds with the resident/fellow. I repeated the null components of the exam. Agree with the noted assessment and plan. Galdino Frye MD [facility] Pulmonary interventional and Critical Care Medicine ------ ICU Progress Note Patient - Arvin Julien Age - 43 y.o. - 1980 Date of Admission - 11/04/2023 11:27 PM HPI/Hospital Course Subjective Arvin Julien is a 43 y.o. male with medical history significant for stage IV lung squamous cell carcinoma on Abraxane and carboplatin (last dose was on 10/25,), A-fib on metoprolol and Eliquis, CHF with preserved EF and remote history of opioid dependence currently on Suboxone who is transferred from [facility] because of difficult to control atrial fibrillation and possible sepsis from pneumonia. Patient was admitted at [place] since 11/01 and stayed there for 3 days then was transferred to us. Patient states he has been complaining of excessive fatigue since his last chemo on 10/25 which got progressively worse, worsening shortness of breath with minimal exertion and cough productive of yellow sputum initially which became dark red and shayne after starting antibiotics while in the hospital. Patient was managed for pneumonia with IV Rocephin azithromycin and Levaquin. No significant improvement Regarding A-fib, heart rate was up to 180 and 190, was managed with diltiazem bolus followed by infusion then there was a concern of low EF, around 40%, so he was switched to amiodarone on 11/03. At home he takes metoprolol around 200 mg daily. Patient was also managed with fluid boluses he received total of 2 L of normal saline despite the presence of extremities edema. He was also given Lasix IV there. SUBJECTIVE Overnight no acute events. He remained in A.fib with RVR on Amiodarone drip at 0.5. Made about 800ml urine. Off oxygen. OBJECTIVE Vitals temperature is 36.1 ???C (97 ???F). His blood pressure is 139/69 and his pulse is 126 (abnormal). His respiration is 15 and oxygen saturation is 96%. Temp: [36.1 ???C (97 ???F)-36.9 ???C (98.4 ???F)] 36.1 ???C (97 ???F) Heart Rate: [101-162] 126 Resp: [12-24] 15 BP: (116-142)/(69-105) 139/69 Physical Exam: General: Patient is alert and oriented x3, not in acute distress. HEENT: Atraumatic, normocephalic, PERRLA Neck: Supple neck. Respiratory: Clear breathing sound bilaterally, no wheezing no crackles. Heart: Regular rhythm, no murmur, no rub. Neurology: Can move all extremities, no focal deficit. Abdomen: Soft, not distended, not tender, Azar sign is negative. Extremities: No cyanosis, bilateral lower limb edema. Skin: Warm and dry. Weight: Admission weight: Wt Readings from Last 1 Encounters: 07/16/22 132 kg (291 lb 14.2 oz) Input/Output: Intake/Output Summary (Last 24 hours) at 11/05/2023 1118 Last data filed at 11/05/2023 1035 Gross per 24 hour Intake 1239.74 ml Output 4600 ml Net -3360.26 ml Lab Results CBC: Results from last 7 days Lab Units 11/05/23 0416 WBC AUTO 10*3/uL 5.87 HEMOGLOBIN g/dL 10.5* HEMATOCRIT % 32.6* PLATELETS AUTO 10*3/uL 228 Coagulation: Metabolic Panel: Results from last 7 days Lab Units 11/05/23 0416 SODIUM mmol/L 136 POTASSIUM mmol/L 3.6 CHLORIDE mmol/L 102 CO2 mmol/L 27 BUN mg/dL 13 CREATININE mg/dL 1.00 GLUCOSE mg/dL 114* CALCIUM mg/dL 8.3* MAGNESIUM mg/dL 1.7* Cardiac: Results from last 7 days Lab Units 11/05/23 0416 TROPONIN I ng/mL 0.03 Radiology ECG 12 lead Atrial fibrillation with rapid ventricular response with premature ventricular or aberrantly conducted complexes Nonspecific T wave abnormality Abnormal ECG No previous ECGs available CT transfer of outside films This order has been auto-finalized and does not contain a result. XR chest 1 view Narrative: CHEST 1 VIEW HISTORY: Hypoxia COMPARISON: None FINDINGS: Left chest port in place. Small loculated left pleural effusion. Diffuse hazy airspace opacities throughout each lung. No left pleural effusion. No pneumothorax. Impression: *Diffuse hazy opacities throughout each lung may represent edema or diffuse pneumonia/pneumonitis. *Small loculated right pleural effusion. *Left chest port in place. Electronically signed: Nitish Trivedi MD. Cultures No results found for: BLOOD CULTURE , URINE CULTURE , WOUND CULTURE , CSF CULTURE , TISSUE CULTURE ONLY Medications Scheduled: apixaban, 5 mg, oral, BID buprenorphine-naloxone, 1 tablet, sublingual, BID cefTRIAXone, 2 g, intravenous, Once Daily furosemide, 40 mg, intra (more content not included)... [facility] 11-03-2023 History of Present illness Narrative Osiris Ward RN Connor Gonzalez MD Patient's mom called to update that he is admitted to [place] ICU room 270. He is very swollen, in a lot of pain and has an infection in his lungs. His BP was 86/66 resting HR was 190. They are giving him 80 mg of lasix for diuresis documented in this encounter [facility] 11-02-2023 History of Present illness Narrative Estelle Julien is a 43 y.o. male Chief Complaint Follow-up HPI Patient is a former patient of Dr. Wall here for follow-up continue management for history of persistent atrial fibrillation. He underwent cardioversion which apparently was unsuccessful. He was advised to follow heart rate control on long-term anticoagulation taking into consideration his overall prognosis with advanced lung cancer. Patient reported to me that he has stage IV lung cancer. He reports he has received chemotherapy last week. Today in the office the patient feels exhausted, fatigued and tired and he indicated that he went to go to the emergency room for evaluation. Cardiac turner he denies chest pain. He describes shortness of breath. His heart rate appears to be controlled. His blood pressure is acceptable. Assessment 1. Persistent atrial fibrillation underwent cardioversion but went back to A-fib and because of his overall diagnosis the patient was advised to be treated with heart rate control on long-term anticoagulation 2. Advanced lung cancer 3. Obesity 4. Bleeding anticoagulated. Recent lab work noted and reviewed his platelet is normal the patient denies any 5. Symptoms of fatigue, tiredness I believe is related to his lung cancer 6. Sleep apnea 7. Essential hypertension controlled Plan 1. The patient will continue on the same medication cardiac turner 2. The patient family is planning to take him directly to the emergency room because of his complaint of fatigue and tiredness lack of appetite recently feel is related to his cancer therapy Review of Systems Cardiovascular: Positive for palpitations. Respiratory: Positive for shortness of breath. Neurological: Positive for dizziness. Vitals: 11/02/23 1400 BP: 102/80 BP Location: Right arm Patient Position: Sitting Pulse: 92 Weight: 130 kg (287 lb) Height: 1.854 m (6' 1 ) Objective Physical Exam Constitutional: Appearance: Normal appearance. HENT: Nose: Nose normal. Neck: Vascular: No carotid bruit. Cardiovascular: Rate and Rhythm: Normal rate. Rhythm irregularly irregular. Pulses: Normal pulses. Heart sounds: Normal [...] Thought content normal. Judgment: Judgment normal. Allergies Metoprolol succinate Current Medications Current Outpatient Medications: apixaban (Eliquis) 5 mg tablet, Take 1 tablet (5 mg) by mouth 2 times a day., Disp: 180 tablet, Rfl: 1 buprenorphine-naloxone (Suboxone) 8-2 mg SL tablet, 1 tablet 2 times a day., Disp: , Rfl: carvedilol (Coreg) 3.125 mg tablet, Take 1 tablet (3.125 mg) by mouth 2 times daily (morning and late afternoon)., Disp: 180 tablet, Rfl: 3 furosemide (Lasix) 20 mg tablet, Take 1 tablet (20 mg) by mouth once daily., Disp: , Rfl: prochlorperazine (Compazine) 10 mg tablet, Take 1 tablet (10 mg) by mouth every 6 hours if needed., Disp: , Rfl: Assessment/Plan 1. Persistent atrial fibrillation (Multi) 2. Paroxysmal atrial fibrillation (Multi) Follow Up In Cardiology Follow Up In Cardiology 3. BMI 37.0-37.9, adult 4. Former smoker 5. High risk medication use 6. Obstructive sleep apnea syndrome 7. Malignant neoplasm of lung, unspecified laterality, unspecified part of lung (Multi) 8. Primary hypertension 9. Shortness of breath Scribe Attestation By signing my name below, Monique Medina LPN, Scribe attest that this documentation has been prepared under the direction and in the presence of Heladio Davis MD. Provider Attestation - Scribe documentation All medical record entries made by the Scribe were at my direction and personally dictated by me. I have reviewed the chart and agree that the record accurately reflects my personal performance of the history, physical exam, discussion and plan. documented in this encounter [facility] Work Phone: 11-02-2023 Instructions Monique Dimas LPN - 11/02/2023 2:00 PM EDT Please bring all medicines, vitamins, and herbal supplements with you when you come to the office. Prescriptions will not be filled unless you are compliant with your follow up appointments or have a follow up appointment scheduled as per instruction of your physician. Refills should be requested at the time of your visit. 4 month with ekg documented in this encounter [facility] Work Phone: 10-26-2023 History of Present illness Narrative Patient presents for Abraxane and Carboplatin infusion. Denies issues with prior infusions. Does complain SOB in the evening continues. SOB is sporadic and is alleviated by sitting up. Patient states it normally occurs one to two days prior to treatment and also expresses he does have anxiety. Education provided. Labs reviewed. Vitals stable. Toxicity check complete. Pre Chemo check completed. Port accessed per facility protocol. Brisk blood return noted, flushed with NS. NS at 25 ml infusing as mainline. Pre medicated with Emend and Aloxi/Dexamethasone as ordered. Abraxane infused over 30 minutes without issues. Carboplatin infused over 30 minutes without issues. Port flushed with NS, saline locked, de accessed. Calendar provided. Discharged in stable condition. documented in this encounter [facility] 10-25-2023 History of Present illness Narrative Port draw completed per protocol documented in this encounter [facility] 10-18-2023 History of Present illness Narrative Patient is here for C1D8 Abraxane/Carboplatin as scheduled. Labs reviewed and OK to proceed with treatment. Toxicity check completed per flowsheet data. All complaints at baseline, except patient does report that he feels more SOB when lying flat. Discussed elevating head of bed to help and patient reports he does that or will sit up for a while to catch his breath. Pre chemo check completed with Endy Rhodes RN. Port accessed under sterile procedure with brisk blood return verified and line flushes with ease. NS initiated as mainline at KVO rate. Patient pre medicated with IVPB Emend and IVPB Aloxi/dexamethasone without incident and tolerated well. Abraxane administered over 30 minutes without incident and patient tolerated well. At completion, line flushed. Carboplatin infused over 30 minutes without incident and patient tolerated well. Upon completion, IV flushed. Port flushed via push/pause method, saline locked, de-accessed and site covered with band aid. Treatment calendar reviewed and labs provided. Patient discharged in stable condition in care of his mother to private vehicle. documented in this encounter [facility] 10-11-2023 History of Present illness Narrative Pt engages with documentation writer during infusion. Pt does not endorse food insecurity, informs he needs to reapply for SNAP benefit as son is now over 22 yrs old; pt how to apply. Pt has internet access, educated on option of on-line application, by phone or in person at [facility]; provided pt with website & phone number. Opportunity provided to ask questions, pt does not endorse any at this time; documentation writer available & following. documented in this encounter [facility] 10-11-2023 History of Present illness Narrative Patient here for Abraxane Carbo Vitals wnl The patient reports feeling fine. Port accessed per protocol Brisk blood return noted Toxicity check completed with Osiris CARDENAS Premeds admin with out difficulty Abraxane started and completed over 30 min Followed by Carbo infused over 30 min The patient tolerated well Port flushed for de acess Patient discharged in stable condition documented in this encounter [facility] 10-10-2023 History of Present illness Narrative Port draw complete per protocol. Patient tolerated well. documented in this encounter [facility] 10-04-2023 History of Present illness Narrative Images from the original note were not included. Patient arrives today for Abraxane/Carboplatin infusion as scheduled. He reports to nurse that he has a boil on upper inner left thigh area that has been an ongoing issue for him for over two years and it does get MRSA. Informed patient will obtain a picture and update Dr. Gonzalez, but did not feel comfortable with treating today, will plan to hold for 1 more week. Patient voiced his irritation about holding treatment and states that you people make it hard for us to want to report any problems because we don't want our treatment held like this. Explained that medication is being held today to avoid causing any further or bigger issues by giving treatment with a current infection. Acting Professor informed patient he will be notified on recommendations from Dr. Gonzalez. Verbalized understanding. Received message back from Dr. Gonzalez that she is in agreement with holding treatment x 1 week and she will send another antibiotic into his pharmacy. However, she does not want to wait too long to start new treatment. Call to patient's mother, Valerie with an update on recommendations. She verbalized understanding to recommendations. THERESA Glez MD FYI, I sent you a picture of a boil on upper inner thigh of patient's left leg. Claims this has been an ongoing issue for over 2 years and he gets MRSA in it. He states he had some amoxicillin at home, about 6 pills that he started taking, but he is down to one pill. He said he is going to need an antibiotic sent into his pharmacy before he runs out. I explained that I did not feel comfortable with starting his treatment today, but we will plan to start next week if you are in agreement. He was quite upset that I would not treat him today with the Carboplatin/Abraxane due to this open sore that has redness and edema noted around it. I explained that having the extra week for this infection to resolve was important so we don't cause further, bigger issues. He again voiced his displeasure, but did leave and said he will wait to see if you will send in an antibiotic for the area. I did recommend going across the street to urgent care to have them assess and order an antibiotic. He refused stating those places are a joke, and he's not going. Armida documented in this encounter [facility] 10-03-2023 History of Present illness Narrative Port draw per protocol. documented in this encounter [facility] 09-27-2023 History of Present illness Narrative Patient verbalized understanding of denial of immunotherapy and agreed to start carboplatin and abraxane. Patient is scheduled for treatment to start next week. Script for dex sent, patient verbalized understanding on how to take. documented in this encounter [facility] 09-23-2023 History of Present illness Narrative Images from the original note were not included. VM left for patient's mother Valerie to discuss future treatment and insurance denial of immunotherapy and approval to schedule abraxane/carboplatin tx if he agrees. Recent CT showed good response. THERESA Chang MD; Osiris Ward RN New plan approved per [facility] Deena Previous Messages ----- Message ----- From: Connor Gonzalez MD Sent: 09/22/2023 4:43 PM EDT To: Deena Panchal RN; Osiris Ward RN Subject: RE: Tecentriq not approved Tx changed to carbo Abraxane due to allergic reaction to paclitaxel. Osiris: Please let patient know that his insurance declined further immunotherapy. Although he has treatment interruption but based on imaging studies, his insurance believe he had disease progression while taking Keytruda. Please refer back to PET scan 02/2023. ----- Message ----- From: Deena Panchal RN Sent: 09/20/2023 12:11 PM EDT To: Connor Gonzalez MD; [facility] Onc Scheduling Subject: Tecentriq not approved Dr. Gonzalez, Please see letter from [employer], they did not approve Tecentriq, because of progression on Keytruda. Case will remain open until tomorrow, can submit additional information or letter of medical necessity to support request. Office note was sent with prior auth request. Please advise on how to proceed. Thank You, Deena King documented in this encounter [facility] 09-16-2023 History of Present illness Narrative The patient is here for follow up of Taxol/Carbo He recently developed a skin rash in response to chemo Dr Gonzalez recommends: CT C/A/P in 2 weeks. Hold chemo. Plan to change tx to immunotherapy, tecentriq or combined opdivo/ipi. Will call and schedule patient when new treatment is approved Will follow up with Dr Gonzalez in 2 months documented in this encounter [facility] 09-16-2023 History of Present illness Narrative Images from the original note were not included. [facility] 09/16/23 Arvin Julien is a 43 y.o. year old male seen today in the oncology clinic. Chief Complaint Patient presents with Follow-up History of Present Illness: Mr. Julien is a 43 y.o. 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 He was status post 4 cycles of carboplatin/paclitaxel, carboplatin with AUC of 6. After 4 cycles of combined treatment, he was maintained on Keytruda only. October 2022 showed excellent response to treatment. Unfortunately February 2023 showed [...] resumed 08/2023 (grade 3 skin rash from paclitaxel) Interval history: Unfortunately the patient was told [...] after 3 doses of weekly carbotaxol treatment. He is currently taking Claritin and prednisone, skin rash is calming down. He continues to have right lower extremity edema and headaches nausea vomiting subsided Past Medical History: Diagnosis Date Anxiety Hypertension Lung cancer (CMS-HCC) Shortness of breath Sleep apnea Visual impairment glasses Past Surgical History: Procedure Laterality Date PORTACATH PLACEMENT RELEASE CARPAL TUNNEL Left 11/20/2019 Performed by Carlee Rodriguez Jr., DO at [facility] RELEASE CARPAL TUNNEL Right 09/25/2019 Performed by Carlee Rodriguez Jr., DO at [facility] TONSILLECTOMY UVULOPALATOPHARYNGOPLASTY, BILATERAL INTERMURAL CAUTERY INFERIOR TURBINATES,OUTFRACTURES N/A 02/08/2017 Performed by Shira Patterson MD at [facility] Family History Problem Relation Age of Onset Heart disease Mother Hypertension Mother Heart disease Father Social History Socioeconomic History Marital status: Tobacco Use Smoking status: Former Current packs/day: 1.00 Types: Cigarettes Smokeless tobacco: Never Substance and Sexual Activity Alcohol use: No Drug use: Not Currently Comment: former Sexual activity: Defer Social Determinants of Health Financial Resource Strain: High Risk (09/09/2023) Overall Financial Resource Strain (CARDIA) Difficulty of Paying Living Expenses: Hard Food Insecurity: No Food Insecurity (09/16/2023) Hunger Screening Food Insecurity - Worry: Never True Food Insecurity - Inability: Never True Recent Concern: Food Insecurity - Food Insecurity Present (09/09/2023) Hunger Screening Food Insecurity - Worry: Often True Food Insecurity - Inability: Often True Transportation Needs: No Transportation Needs (09/09/2023) PRAPARE - Transportation Lack of Transportation (Medical): No Lack of Transportation (Non-Medical): No Received from [facility] Safety & Environment Housing Instability: Low Risk (09/09/2023) Housing Instability Housing Instability: No Allergies Allergen Reactions Celecoxib Other reaction(s): GI Distress, Hives Metaxalone Other reaction(s): GI Distress Other Nausea And Vomiting and Other (See Comments) Other reaction(s): Hives Darvocet N 100 Medication List Accurate as of September 16, 2023 4:54 PM. If you have any questions, ask your nurse or doctor. Medications Continued This Visit albuterol 90 mcg/actuation inhaler Quantity: 18 g [...] PRN Commonly known as: PROVENTIL HFA;VENTOLIN HFA ALEVE 220 mg tablet Refills: 0 Dose: 440 mg Generic drug: naproxen sodium apixaban 5 mg tablet Quantity: 60 tablet Refills: 11 For diagnoses: Abnormal heart rhythm Dose: 5 mg Signed by: JUAN Rubin 5 mg, oral, 2 times daily Commonly known as: EVY buprenorphine-naloxone 8-2 mg per SL tablet Refills: 0 Dose: 1 tablet Commonly known as: SUBOXONE dilTIAZem 30 mg tablet Refills: 0 Commonly known as: CARDIZEM furosemide 20 mg tablet Quantity: 30 tablet Refills: 1 For diagnoses: Leg edema, right Dose: 20 mg Signed by: Connor Gonzalez 20 mg, oral, Daily Commonly known as: LASIX MEN'S MULTI-VITAMIN tablet Refills: 0 Dose: 1 tablet Generic drug: multivitamin predniSONE 20 mg tablet Quantity: 10 tablet Refills: 0 For diagnoses: 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 ([facility]-HCC) Dose: 20 mg Signed by: Connor Gonzalez 20 mg, oral, Daily Commonly known as: DELTASONE Medications Discontinued This Visit dexAMETHasone 4 mg tablet Commonly known as: DECADRON Stopped by: Connor Gonzalez ibuprofen 800 mg tablet Commonly known as: MOTRIN Stopped by: Connor Gonzalez losartan 50 mg tablet Commonly known as: COZAAR Stopped by: Connor Gonzalez metoprolol succinate XL 50 mg 24 hr tablet Commonly known as: TOPROL XL Stopped by: Connor Gonzalez ondansetron 8 mg tablet Commonly known as: ZOFRAN Stopped by: Connor Gonzalez prochlorperazine 10 mg tablet Commonly known as: COMPAZINE Stopped by: Connor Gonzalez Review of Symptoms: Review of Systems ECO- Symptomatic; in bed <50% of the day Physical Exam: General: Well appearing, in no acute distress. Vitals: BP (!) 117/91 Pulse (!) 130 Temp 36.7 C (98 F) (Oral) Resp 18 Ht 185.4 cm (6' 0.99 ) Wt 128.8 kg (284 lb) SpO2 99% BMI 37.48 kg/m Body mass index is 37.48 kg/m . Eyes: No icterus, no conjuctival erythema ENT: Pharyngeal mucosa was moist without exudate and inflammation or ulcerations. Tongue was midline and appeared normal.Gums were unremarkable. Lymph nodes: No palpable adenopathy Neck: Supple. There were no masses, tenderness. Trachea was midline. Respiratory: Respirations were non-labored. Lungs were clear to auscultation. There was no dullness to percussion. Cardiac: Regular rate and rhythm, S1 [...] technologist's notes above Consent/pre-procedure evaluation: See below. [place] protocol timeout verification performed. Estimated blood loss: [...] Alvin Lomeli MD on 05/31/2023 3:03 PM Recent Labs: Recent Results (from the past 336 hour(s)) CBC auto differential Collection Time: 09/05/23 12:36 PM Result Value Ref Range White Blood Cells 3.9 (L) 4.0 - 11.0 X10E9/L RBC count 4.19 4.10 - 5.70 X10E12/L Hemoglobin 12.6 (L) 13.0 - 17.0 g/dL Hematocrit 36.6 (L) 39 - 49 % MCV 87 80 - 100 fL MCH 30.1 27 - 34 pg MCHC 34.5 32 - 36 g/dL RDW 12.8 11.5 - 15.0 % Platelets 229 150 - 450 X10E9/L MPV 7.8 7 - 12 fL Myelocyte 3.0 % Seg neutrophil 44.0 % Lymphocyte 47.0 % Monocytes 3.0 % Eosinophil 1.0 % Basophil 1.0 % Lymphocyte, atypical 1.0 % Neutrophils Absolute (M) 1.7 1.5 - 6.6 X10E9/L Lymphocytes Absolute 2.0 1.0 - 3.5 X10E9/L Monocytes Absolute 0.1 0 - 0.9 X10E9/L Eosinophils Absolute 0.0 0.0 - 0.4 X10E9/L Basophils Absolute 0.0 0.0 - 0.2 X10E9/L RBC Morphology REVIEWED Comprehensive metabolic panel Collection Time: 09/05/23 12:36 PM Result Value Ref Range Sodium 135 134 - 146 mmol/L Potassium, Bld 3.8 3.5 - 5.0 mmol/L Chloride 103 98 - 109 mmol/L CO2 26 22 - 32 mmol/L Anion gap 6 5 - 15 mmol/L BUN 8 5 - 23 mg/dL Creatinine 0.87 0.70 - 1.20 mg/dL Glucose 103 (H) 65 - 99 mg/dL Calcium 8.5 8.5 - 10.5 mg/dL Total Protein 6.4 6.0 - 8.0 g/dL Albumin 3.6 3.2 - 5.3 g/dL Alkaline Phosphatase 39 39 - 130 U/L AST 20 0 - 41 U/L ALT 34 0 - 40 U/L Total bilirubin 0.9 0.3 - 1.2 mg/dL eGFR (CKD-EPI)non-race dependent >90 >59 ml/min/1.73sq.m Comprehensive metabolic panel Collection Time: 09/12/23 12:25 PM Result Value Ref Range Sodium 131 (L) 134 - 146 mmol/L Potassium, Bld 3.4 (L) 3.5 - 5.0 mmol/L Chloride 99 98 - 109 mmol/L CO2 24 22 - 32 mmol/L Anion gap 8 5 - 15 mmol/L BUN 9 5 - 23 mg/dL Creatinine 1.01 0.70 - 1.20 mg/dL Glucose 97 65 - 99 mg/dL Calcium 8.4 (L) 8.5 - 10.5 mg/dL Total Protein 6.4 6.0 - 8.0 g/dL Albumin 3.5 3.2 - 5.3 g/dL Alkaline Phosphatase 34 (L) 39 - 130 U/L AST 22 0 - 41 U/L ALT 41 (H) 0 - 40 U/L Total bilirubin 1.6 (H) 0.3 - 1.2 mg/dL eGFR (CKD-EPI)non-race dependent >90 >59 ml/min/1.73sq.m CBC auto differential Collection Time: 09/12/23 12:25 PM Result Value Ref Range White Blood Cells 4.0 4.0 - 11.0 X10E9/L RBC count 3.69 (L) 4.10 - 5.70 X10E12/L Hemoglobin 11.1 (L) 13.0 - 17.0 g/dL Hematocrit 32.1 (L) 39 - 49 % MCV 87 80 - 100 fL MCH 30.1 27 - 34 pg MCHC 34.7 32 - 36 g/dL RDW 13.4 11.5 - 15.0 % Platelets 162 150 - 450 X10E9/L MPV 8.0 7 - 12 fL Myelocyte 1.0 % Metamyelocyte 2.0 % Band 13.0 % Seg neutrophil 45.0 % Lymphocyte 35.0 % Monocytes 1.0 % Basophil 1.0 % Lymphocyte, atypical 2.0 % Neutrophils Absolute (M) 2.4 1.5 - 6.6 X10E9/L Lymphocytes Absolute 1.5 1.0 - 3.5 X10E9/L Monocytes Absolute 0.0 0 - 0.9 X10E9/L Basophils Absolute 0.0 0.0 - 0.2 X10E9/L RBC Morphology NORMAL Diagnosis Problem list: Problem List Items Addressed This Visit Respiratory 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 He received 4 cycles of carboplatin/paclitaxel/Keytruda. Carboplatin dose was AUC of 6. The patient's blood counts remains stable during the treatment. His most recent CT scan showed disease progression with enlarging mediastinal and supraclavicular lymphadenopathy. His repeat CT scan showed significant disease progression with enlarging mediastinal and hilar mass and multiple new lung nodules Patient's brain MRI 07/2023 was unremarkable no evidence of intracranial metastasis. He has develops grade 3 drug reaction to paclitaxel. CT C/A/P in 2 weeks for new baseline. Hold chemo. Obtain PDL1 study to see if he has high expression. Plan to change tx to immunotherapy, tecentriq or combined opdivo/ipi if patient has high PD-L1 expression. If the patient has a low PD-L1 expression, consider further treatment with carboplatin/gemcitabine. Follow-up in 2 months. Thank you. Connor Gonzalez MD Please note that portions of this note were generated using voice recognition [employer] dictation software. Although every effort was made to ensure the accuracy of this automated machine operator helper, some errors in machine operator helper may have occurred. CC: Patient Care Team: No Pcp No Pcp as PCP - General (Family Medicine) Connor Gonzalez MD as Consulting Physician (Hematology) PCP:NO PCP, NO PCP Referring MD: Addison Pérez MD documented [facility] 09-16-2023 Instructions Connor Gonzalez MD - 09/16/2023 3:[address] C/A/P in 2 weeks. Hold chemo. Plan to change tx to immunotherapy, tecentriq or combined opdivo/ipi. [facility] [facility] 09-13-2023 History of Present illness Narrative Patient here for Taxol Carbo Vitals wnl Patient presents with bilateral red, warm areas to hand, swollen reddened RLE, and rash to generalized face and fore head. The patient also reported a 3 hour nose bleed this am. Dr Gonzalez notified of acute symptoms Recommends to hold treatment and patient to get R lower leg venous doppler The patient will have a 10 day course of oral prednisone and hold treatment until finished Patient verbalizes understanding and agrees with recommendation Order given, patient discharged in stable condition documented [facility] this [facility] 09-12-2023 History of Present illness Narrative Port draw complete per protocol. documented in this encounter [facility] 09-06-2023 History of Present illness Narrative Pt easily engages with documentation writer, pt received food bags; does not endorse any other current needs, documentation writer available & following. documented in this encounter [facility] 09-06-2023 History of Present illness Narrative The patient is here today for Taxol Carbo Chemo toxicity completed with Endy CARDENAS, labs reviewed Port accessed per protocol with blood return noted Premeds admin over 15 min via IVPB and IVP Taxol started and completed over 60 min without incident Followed by Carbo infused over 60 min The patient tolerated well Port flushed and heparinized for de-access Patient discharged in stable condition documented in this encounter [facility] 09-05-2023 History of Present illness Narrative Images from the original note were not included. [facility] PULMONARY/SLEEP MEDICINE [address] [id number] Subjective: Chief Complaint Shortness a breath. Lung cancer HPI The patient is 43-year-old male who was diagnosed with stage IV squamous cell carcinoma of the right lung in June 2022. The patient used to see Dr. Fuentes. He would like to transfer care to [facility] to keep all of his records at [facility] and it will be easier for him to come to [place]. The patient complains of shortness a breath with minimum activity. Patient had 4 cycles of carboplatin/paclitaxel and then he was started on Keytruda then it was stopped because of cardiac procedures. Repeat CT scan in July 2023 showed Significant interval progression of neoplasm throughout the chest and Significant interval enlargement of mediastinal and perihilar lymphadenopathy. There is also significant interval enlargement of poorly circumscribed right hilar mass measuring up to 6 cm. MRI of the brain was negative. So it was decided to start him on another 4 cycles of chemo. He has in the middle of getting chemo. Patient also has history of obstructive sleep apnea who is on auto PAP at night according to him. We were unable to get download from the machine today. He stated that he had the sleep study at [facility] and following sleep medicine there. He stated that he has not using the machine very often because it is causing him more shortness a breath and not comfortable with it since he is getting chemo. Patient smoked 1 pack per day and quit in 2022 Review of Systems Allergies: Celecoxib, Metaxalone, and Other Past Medical History: Diagnosis Date Anxiety Hypertension Lung cancer (CMS-HCC) Shortness of breath Sleep apnea Visual impairment glasses Past Surgical History: Procedure Laterality Date PORTACATH PLACEMENT RELEASE CARPAL TUNNEL Left 11/20/2019 Performed by Carlee Rodriguez Jr., DO at [facility] RELEASE CARPAL TUNNEL Right 09/25/2019 Performed by Carlee Rodriguez Jr., DO at [facility] TONSILLECTOMY UVULOPALATOPHARYNGOPLASTY, BILATERAL INTERMURAL CAUTERY INFERIOR TURBINATES,OUTFRACTURES N/A 02/08/2017 Performed by Shira Patterson MD at [facility] ? Social History Tobacco Use Smoking Status Former Current packs/day: 1.00 Types: Cigarettes Smokeless Tobacco Never Social History Substance and Sexual Activity Alcohol Use No Social History Substance and Sexual Activity Drug Use Not Currently Comment: former Social History Substance and Sexual Activity Sexual Activity Defer ? Family History Problem Relation Age of Onset Heart disease Mother Hypertension Mother Heart disease Father Social History Tobacco Use Smoking status: Former Current packs/day: 1.00 Types: Cigarettes Smokeless tobacco: Never Substance Use Topics Alcohol use: No Objective: Vitals: 09/05/23 1358 BP: (!) 133/95 Pulse: 59 SpO2: 98% Physical Exam Vitals and nursing note reviewed. Constitutional: Appearance: Normal appearance. He is obese. HENT: Head: Atraumatic. Cardiovascular: Rate and Rhythm: Normal rate. Pulmonary: Effort: Pulmonary effort is normal. Breath sounds: Normal breath sounds. No wheezing. Abdominal: General: Abdomen is flat. Skin: General: Skin is warm and dry. Neurological: Mental Status: He is alert. Most recent Labs, images were reviewed and independently verified. Echo 07/06/2023 Left Ventricle: There is mild concentric increased wall thickness/hypertrophy. Difficult to assess left ventricular systolic function and segmental wall motion accurately due to arrhythmias. Probably preserved or mildly reduced LVEF. Right Ventricle: Right ventricular size appears normal. Systolic function is mildly reduced. No significant valvular disease noted. Study Information Study Details A complete echo was performed using complete 2D, color flow Doppler and spectral Doppler. Overall the study quality was adequate. Myocardial Findings Left Ventricle Left ventricle appears normal in size. There is mild concentric increased wall thickness/hypertrophy. Systolic function is mildly decreased with an ejection fraction of 45-50%. See wall score diagram for wall motion abnormalities. Unable to assess diastolic function due to atrial fibrillation/flutter. Lateral E' is 12.20 cm/s. Medial E' is 11.00 cm/s. Right Ventricle Right ventricular size appears normal. The right ventricular basal diameter is 41.0 mm. Systolic function is mildly reduced. Left Atrium Left atrium is normal in size. The left atrial volume index is 25.7 mL/m2. Right Atrium Right atrium is mildly dilated. The right atrial area is 19.3 cm2. Aortic Valve The aortic valve is trileaflet. There is no regurgitation or stenosis. Mitral Valve The leaflets are mildly thickened. There is trace regurgitation. There is no evidence of mitral valve stenosis. Tricuspid Valve Tricuspid valve appears to be normal. There is trace regurgitation. There is no evidence of tricuspid valve stenosis. Insufficient regurgitant jet to assess right ventricular systolic pressure. Pulmonic Valve The pulmonic valve was not well visualized. There is trace regurgitation. There is no evidence of pulmonic valve stenosis. Ascending Aorta The aortic root is normal in size. IVC/SVC The right atrial pressure is estimated at 8 mmHg. IVC appears dilated with increased right atrial pressure. There is normal collapse with deep inspiration. Pericardium There is no pericardial effusion. Assessment/Plan: Impression Dyspnea on exertion. Multifactorial Stage IV squamous cell carcinoma. Extensive history of smoking. Quit 2022 Obstructive sleep apnea BMI 36 Persistent atrial fibrillation Recommendations Will need to do pulmonary function test. It was explained that it is not urgent procedure. Priority is to get the chemo due treat the cancer at this point. PFT can be done if does not interfere with other treatments. Start albuterol inhaler. We were unable to get the download from the PAP machine. He was asked to bring the machine next visit. CT chest findings were explained to the patient. Patient was advised to stay active. Discussed the plan of care in details with the patient. Follow-up after 6 months. Thank you for involving me in this patient's care. Addison Cox MD. Pulmonary and Critical Care Physician 09/05/23. Please note that portions of this note were generated using voice recognition M*Modal dictation software. Although every effort was made to ensure the accuracy of this automated machine operator helper, some errors in machine operator helper may have occurred. documented in this encounter [facility] 09-05-2023 History of Present illness Narrative Port draw completed per protocol and patient tolerated well. Declined to stay accessed for treatment tomorrow. Discharged in stable condition to private vehicle. documented in this encounter [facility] 08-30-2023 History of Present illness Narrative Patient is here for taxol/carboplatin as scheduled. Toxicity check completed per flowsheet data. Pre chemo check completed with Osiris So RN. Port accessed under sterile procedure with brisk blood return verified and line flushes with ease. NS initiated as mainline at KVO rate. Patient pre medicated per MAR without incident and tolerated well. Taxol infused over 1 hour without incident and patient tolerated well. Carboplatin infused over 1 hour without incident and patient tolerated well. Upon completion, IV flushed. Port flushed, saline locked, de-accessed and site covered with band aid. Food bank bags provided. Reviewed symptom management sheet with patient for oral care and reviewed dexamethasone instructions post treatment days. Patient verbalized understanding to all. Discharged in stable condition to private vehicle. documented in this encounter [facility] 08-29-2023 History of Present illness Narrative Patient here for port draw as scheduled. Port accessed per protocol, labs obtained and flushed. Patient stated he has been having diarrhea and requested hydration. Hydration infused over 2 hours per order, patient tolerated well. Port de-accessed and bandaide over site. Patient given calendar and discharged in stable condition. documented in this encounter [facility] 08-23-2023 History of Present illness Narrative The patient is here today for Taxol Carbo The patient received hydration yesterday for symptoms of dehydration related to severe nausea and vomiting The patient reports today feeling much better and being able to hold food down Chemo toxicity completed with Osiris CARDENAS, labs reviewed Port accessed per protocol with blood return noted Premeds admin over 15 min via IVPB and IVP Taxol started and completed over 60 min without incident Followed by Carbo infused over 60 min The patient tolerated well Port flushed and heparinized for de-access Patient discharged in stable condition documented in this encounter [facility] 08-22-2023 History of Present illness Narrative Patient is here today for Hydration He is diaphoretic but states that he is hot Port accessed from port draw Hydration started and given over 2 hours with IVP of Kytril Patient tolerated well. Port flushed and heparinized for de access Patient discharged is stable condition documented in this encounter [facility] 08-16-2023 History of Present illness Narrative Introduced self & role to pleasant pt during infusion, pt engages with documentation writer. Pt lives in [place] with his , their 12 yr old daughter & 22 year old step son who provide natural supports; pt mom also provides natural supports & brought pt to appointment this day. Pt has medical insurance, no current PCP. Educated on area PCP's accepting new pt's & provided Guide to Practitioners. Pt using Suboxone, has been sober since 2010; uses [employer] gummy's daily, no alcohol use. Pt receives SSDI. Acting Professor inquired on food insecurity, pt relayed SNAP benefit recently terminated due to stepson's income; pt aware of area food pantries & agreeable to food bag at next appointment if can be arranged. Educated pt on [employer] [facility]/[employer] fund, pt said he has already utilized & next time will be September; provided pt with [employer] gas card. Opportunity provided to ask questions, pt does not endorse any at this time; provided pt with writers card, documentation writer available & following. documented in this encounter [facility] 08-16-2023 History of Present illness Narrative The patient is here today for Taxol Carbo The patient was previously receiving treatment with [facility] but transferred due to moving The patient received hydration yesterday for symptoms of dehydration related to severe nausea and vomiting The patient reports today feeling much better and being able to hold food down Message sent to Dr Gonzalez for update and Dr Gonzalez ok to proceed Chemo toxicity completed with Fercho Leigh, labs reviewed Port accessed per protocol with blood return noted Premeds admin over 15 min via IVPB and IVP Taxol started and completed over 60 min without incident Followed by Carbo infused over 60 min The patient tolerated well Port flushed and heparinized for de-access Patient discharged in stable condition documented in this encounter [facility] 08-15-2023 History of Present illness Narrative Patient is here today for Hydration He reports severe nausea and vomiting with no relief from Compazine or Zofran He is noted to have an unintentional weight loss of 11lbs Port accessed from port draw Hydration started and given over 2 hours with IVP of Kytril Patient tolerated well. Port flushed and heparinized for de access Patient discharged is stable condition documented in this encounter [facility] 08-05-2023 History of Present illness Narrative Port draw completed per protocol. documented in this encounter [facility] 08-05-2023 History of Present illness Narrative The patient is here today for follow up with Dr Carlos Gonzalez is strongly recommending treatment to start LEANDRA Message sent to compliance to ask for insurance to be expedited. Dr Gonzalez would like the patient to have: Brain MRI w/wo stat Handicap sticker Start chemo leandra. Flush port, check CBC, CMP, TSH. Orders and calendar given Patient will F/u in 4-5 weeks for assessment of treatment tolerance documented in this encounter [facility] 08-05-2023 History of Present illness Narrative Images from the original note were not included. [facility] 08/05/23 Arvin Julien is a 43 y.o. year old male seen today in the oncology clinic. Chief Complaint Patient presents with Follow-up History of Present Illness: Mr. Julien is a 43 y.o. 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 He was status post 4 cycles of carboplatin/paclitaxel, carboplatin with AUC of 6. After 4 cycles of combined treatment, he was maintained on Keytruda only. October 2022 showed excellent response to treatment. Unfortunately February 2023 showed new left supraclavicular lymph node and mediastinal lymph node. Repeat CT scan of the neck and chest March 2023 showed further disease progression with enlarging subcarinal lymphadenopathy, left supraclavicular lymph nodes and new pulmonary nodules. The patient's last dose of Keytruda treatment was 06/13/2023. He request to hold treatment due to atrial fibrillation cardiac procedures. Interval history: Unfortunately the patient was told that he has not a candidate for any cardiac procedure for his atrial fibrillation. He complains about intermittent nausea in the morning with occasional headaches. No significant vision change. He also noted worsening shortness of breath with cough occasionally. Currently he is on Suboxone. He is accompanied by his mother. Past Medical History: Diagnosis Date Anxiety Hypertension Lung cancer (CMS-HCC) Shortness of breath Sleep apnea Visual impairment glasses Past Surgical History: Procedure Laterality Date PORTACATH PLACEMENT RELEASE CARPAL TUNNEL Left 11/20/2019 Performed by Carlee Rodriguez Jr., DO at [facility] RELEASE CARPAL TUNNEL Right 09/25/2019 Performed by Carlee Rodriguez Jr., DO at [facility] TONSILLECTOMY UVULOPALATOPHARYNGOPLASTY, BILATERAL INTERMURAL CAUTERY INFERIOR TURBINATES,OUTFRACTURES N/A 02/08/2017 Performed by Shira Patterson MD at [facility] Family History Problem Relation Age of Onset Heart disease Mother Hypertension Mother Heart disease Father Social History Socioeconomic History Marital status: Tobacco Use Smoking status: Former Current packs/day: 1.00 Types: Cigarettes Smokeless tobacco: Never Substance and Sexual Activity Alcohol use: No Drug use: Not Currently Comment: former Sexual activity: Defer Social Determinants of Health Food Insecurity: No Food Insecurity (06/28/2022) Hunger Screening Food Insecurity - Worry: Never True Food Insecurity - Inability: Never True [facility] [place] [facility] Environment Allergies Allergen Reactions Celecoxib Other reaction(s): GI Distress, Hives Metaxalone Other reaction(s): GI Distress Other Nausea And Vomiting and Other (See Comments) Other reaction(s): Hives Darvocet N 100 Medication List Accurate as of August 05, 2023 3:18 PM. If you have any questions, ask your nurse or doctor. Medications Continued This Visit ALEVE 220 mg tablet Refills: 0 Dose: 440 mg Generic drug: naproxen sodium apixaban 5 mg tablet Quantity: 60 tablet Refills: 11 For diagnoses: Abnormal heart rhythm Dose: 5 mg Signed by: JUAN Rubin 5 mg, oral, 2 times daily Commonly known as: ELIQUIS buprenorphine-naloxone 8-2 mg per SL tablet Refills: 0 Dose: 1 tablet Commonly known as: SUBOXONE furosemide 20 mg tablet Refills: 0 Dose: 20 mg Commonly known as: LASIX ibuprofen 800 mg tablet Refills: 0 Dose: 800 mg Commonly known as: MOTRIN losartan 50 mg tablet Refills: 0 Dose: 25 mg Commonly known as: COZAAR MEN'S MULTI-VITAMIN tablet Refills: 0 Dose: 1 tablet Generic drug: multivitamin metoprolol succinate XL 50 mg 24 hr tablet Quantity: 180 tablet Refills: 3 Dose: 50 mg Signed by: Barby Dechristopher, SQUEEGEE OPERATOR-BLANK DRILLER 50 mg, oral, 2 times daily Commonly known as: TOPROL XL Review of Symptoms: Review of Systems ECO- Symptomatic; in bed <50% of the day Physical Exam: General: Well appearing, in no acute distress. Vitals: BP (!) 134/97 Pulse 60 Temp 36.7 C (98 F) (Oral) Resp 20 Ht 182.9 cm (6' 0.01 ) Wt 129.5 kg (285 lb 6.4 oz) SpO2 95% BMI 38.70 kg/m Body mass index is 38.7 kg/m . Eyes: No icterus, no conjuctival erythema ENT: Pharyngeal mucosa was moist without exudate and inflammation or ulcerations. Tongue was midline and appeared normal.Gums were unremarkable. Lymph nodes: No palpable adenopathy Neck: Supple. There were no masses, tenderness. Trachea was midline. Respiratory: Respirations were non-labored. Lungs were clear to auscultation. There was no dullness to percussion. Cardiac: Regular rate and rhythm, S1 and S2 sounds were normal. There were no rubs or gallops. Abdomen: Soft, non-tender, Nondistended. Bowel sounds audible in all four quadrants. There were no palpable masses. The liver and spleen were not enlarged. Extremities: There was no clubbing, Cyanosis, edema. Skin: There was no obvious rashes, bruising or ecchymosis. Back exam: No palpable tenderness was appreciated. Neurologic: There was no unilateral weakness. Mood and affect: Normal. Recent Imaging: IR biopsy lymph node Result Date: 05/31/2023 Narrative: Pre-procedure diagnosis: See history below Post-procedure diagnosis: Same as above Assistants/resident: See the technologist's notes above Consent/pre-procedure evaluation: See below. [place] protocol timeout verification performed. Estimated blood loss: [...] Alvin Lomeli MD on 05/31/2023 3:03 PM Recent Labs: No results found for this or any previous visit (from the past 336 hour(s)). 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 He received 4 cycles of carboplatin/paclitaxel/Keytruda. Carboplatin dose was AUC of 6. The patient's blood counts remains stable during the treatment. His most recent CT scan showed disease progression with enlarging mediastinal and supraclavicular lymphadenopathy. His repeat CT scan showed significant disease progression with enlarging mediastinal and hilar mass and multiple new lung nodules He also complains about new onset nausea in the morning with headaches. Brain MRI w/wo stat to rule out intracranial metastasis due to new onset nausea and headaches. Handicap sticker Start chemo leandra, the treatment will be weekly carboplatin/paclitaxel along with Keytruda every 3 weeks for better tolerance. Plan for 6 cycles of treatment then down to Keytruda maintenance again. After start chemotherapy, repeat CT scan 3 months to evaluate response. Flush port, check CBC, CMP, TSH today. F/u in 4-5 weeks. Upon further disease progression, consider combined immunotherapy with Opdivo/ipilimumab versus Carbo/Gemzar/immunotherapy Thank you. Connor Gonzalez MD Please note that portions of this note were generated using voice recognition [employer] dictation software. Although every effort was made to ensure the accuracy of this automated machine operator helper, some errors in machine operator helper may have occurred. CC: Patient Care Team: No Pcp No Pcp as PCP - General (Family Medicine) Connor Gonzalez MD as Consulting Physician (Hematology) PCP:NO PCP, NO PCP Referring MD: Addison Pérez MD documented in this encounter [facility] 08-05-2023 Instructions Connor Gonzalez MD - 08/05/2023 2:30 PM EDT Brain MRI w/wo stat Handicap sticker Start chemo leandra. Flush port, check CBC, CMP, TSH. F/u in 4-5 weeks. documented in this encounter [facility] 07-20-2023 History of Present illness Narrative Subjective Arvin Julien is a 43 y.o. male Chief Complaint Follow-up HPI Patient returns in follow-up of cardioversion. Cardioversion was successful and he stayed in rhythm for 3 days. He states during those 3 days he actually felt worse. He thought he could think more clearly but actually states he was really short of breath following the nondenominational of sinus rhythm. He thereafter went out [...] Attestation By signing my name below, I, Haleigh Juárze LPN, Mik attest that this documentation has been prepared [...] discussion and plan. documented in this encounter [facility] Work Phone: 07-20-2023 Instructions Haleigh Bobby LPN [...] instructions on exercise. documented in this encounter [facility] Work Phone: 06-16-2023 History of Present illness Narrative Patient is here for follow up with Dr. Gonzalez. Orders received for CT c/a/p mid 06/2023. Plan to start chemo weekly carbo/paclitaxel/keytruda after heart procedure. F/u end of 07/2023. Patient given calendar, verbalized understanding of future appointments. documented in this encounter [facility] 06-16-2023 History of Present illness Narrative Images from the original note were not included. [facility] 06/16/23 Arvin Julien is a 43 y.o. year old male seen today in the oncology clinic. Chief Complaint Patient presents with New Patient History of Present Illness: Mr. Julien is a 43 y.o. 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 He was status post 4 cycles of carboplatin/paclitaxel, carboplatin with AUC of 6. After 4 cycles of combined treatment, he was maintained on Keytruda only. October 2022 showed excellent response to treatment. Unfortunately February 2023 showed new left supraclavicular lymph node and mediastinal lymph node. Repeat CT scan of the neck and chest March 2023 showed further disease progression with enlarging subcarinal lymphadenopathy, left supraclavicular lymph nodes and new pulmonary nodules. The patient's last dose of Keytruda treatment was 06/13/2023. Overall he has tolerated Keytruda very well, mild fatigue for 2 days after infusion but no significant diarrhea skin rash or joint discomfort. He is planning to have cardiac workup and procedure done for his atrial fibrillation in the next several weeks, he would like to continue treatment after his cardiac procedure is completed. Past Medical History: Diagnosis Date Anxiety Hypertension Lung cancer (CMS-HCC) Shortness of breath Sleep apnea Visual impairment glasses Past Surgical History: Procedure Laterality Date PORTACATH PLACEMENT RELEASE CARPAL TUNNEL Left 11/20/2019 Performed by Carlee Rodriguez Jr., DO at [facility] RELEASE CARPAL TUNNEL Right 09/25/2019 Performed by Carlee Rodriguez Jr., DO at [facility] TONSILLECTOMY UVULOPALATOPHARYNGOPLASTY, BILATERAL INTERMURAL CAUTERY INFERIOR TURBINATES,OUTFRACTURES N/A 02/08/2017 Performed by Shira Patterson MD at [facility] Family History Problem Relation Age of Onset Heart disease Mother Hypertension Mother Heart disease Father Social History Socioeconomic History Marital status: Tobacco Use Smoking status: Former Current packs/day: 1.00 Types: Cigarettes Smokeless tobacco: Never Substance and Sexual Activity Alcohol use: No Drug use: Not Currently Comment: former Sexual activity: Defer Social Determinants of Health Food Insecurity: No Food Insecurity (06/28/2022) Hunger Screening Food Insecurity - Worry: Never True Food Insecurity - Inability: Never True [facility] [place] Safety & Environment Allergies Allergen Reactions Celecoxib Other reaction(s): GI Distress, Hives Metaxalone Other reaction(s): GI Distress Other Nausea And Vomiting and Other (See Comments) Other reaction(s): Hives Darvocet N 100 Medication List Accurate as of June 16, 2023 2:55 PM. If you have any questions, ask your nurse or doctor. Medications Continued This Visit ALEVE 220 mg tablet Refills: 0 Dose: 440 mg Generic drug: naproxen sodium apixaban 5 mg tablet Quantity: 60 tablet Refills: 11 For diagnoses: Abnormal heart rhythm Dose: 5 mg Signed by: JUAN Rubin 5 mg, oral, 2 times daily Commonly known as: ELIPIPER buprenorphine-naloxone 8-2 mg per SL tablet Refills: 0 Dose: 1 tablet Commonly known as: SUBOXONE furosemide 20 mg tablet Refills: 0 Dose: 20 mg Commonly known as: LASIX ibuprofen 800 mg tablet Refills: 0 Dose: 800 mg Commonly known as: MOTRIN losartan 50 mg tablet Refills: 0 Dose: 25 mg Commonly known as: SHANTAAR MEN'S MULTI-VITAMIN tablet Refills: 0 Dose: 1 tablet Generic drug: multivitamin metoprolol succinate XL 50 mg 24 hr tablet Quantity: 180 tablet Refills: 3 Dose: 50 mg Signed by: JUAN Hawkins 50 mg, oral, 2 times daily Commonly known as: TOPROL XL Review of Symptoms: Review of Systems ECO- Symptomatic; in bed <50% of the day Physical Exam: General: Well appearing, in no acute distress. Vitals: BP 146/73 Pulse 67 Temp 36.9 C (98.5 F) (Oral) Resp 18 Ht 182.9 cm (6' 0.01 ) Wt (!) 136.7 kg (301 lb 6.4 oz) SpO2 97% BMI 40.87 kg/m Body mass index is 40.87 kg/m . Eyes: No icterus, no conjuctival erythema ENT: Pharyngeal mucosa was moist without exudate and inflammation or ulcerations. Tongue was midline and appeared normal.Gums were unremarkable. Lymph nodes: No palpable adenopathy Neck: Supple. There were no masses, tenderness. Trachea was midline. Respiratory: Respirations were non-labored. Lungs were clear to auscultation. There was no dullness to percussion. Cardiac: Regular rate and rhythm, S1 and S2 sounds were normal. There were no rubs or gallops. Abdomen: Soft, non-tender, Nondistended. Bowel sounds audible in all four quadrants. There were no palpable masses. The liver and spleen were not enlarged. Extremities: There was no clubbing, Cyanosis, edema. Skin: There was no obvious rashes, bruising or ecchymosis. Back exam: No palpable tenderness was appreciated. Neurologic: There was no unilateral weakness. Mood and affect: Normal. Recent Imaging: IR biopsy lymph node Result Date: 05/31/2023 Narrative: Pre-procedure diagnosis: See history below Post-procedure diagnosis: Same as above Assistants/resident: See the technologist's notes above Consent/pre-procedure evaluation: See below. Drummond protocol timeout verification performed. Estimated blood loss: [...] Alvin Lomeli MD on 05/31/2023 3:03 PM Recent Labs: No results found for this or any previous visit (from the past 336 hour(s)). Diagnosis Problem list: Problem List Items Addressed This Visit None Impression: Metastatic squamous cell carcinoma, no actionable mutations (guardant 360) Atrial fibrillation History of drug abuse Plan: I reviewed the patient's previous treatment history at [facility]. He received 4 cycles of carboplatin/paclitaxel/Keytruda. Carboplatin dose was AUC of 6. The patient's blood counts remains stable during the treatment. His most recent CT scan showed disease progression with enlarging mediastinal and supraclavicular lymphadenopathy. CT c/a/p mid 06/2023 for new baseline. Patient prefers to start treatment after his cardiac procedure is completed. Plan to start chemo weekly carbo/paclitaxel/keytruda after heart procedure for better tolerance. F/u end of 07/2023. Upon further disease progression, consider combined immunotherapy with Opdivo/ipilimumab Thank you. Connor Gonzalez MD Please note that portions of this note were generated using voice recognition M*Modal dictation software. Although every effort was made to ensure the accuracy of this automated machine operator helper, some errors in machine operator helper may have occurred. CC: Patient Care Team: No Pcp No Pcp as PCP - General (Family Medicine) Connor Gonzalez MD as Consulting Physician (Hematology) PCP:NO PCP, NO PCP Referring MD: Ref Prov, Not In System documented in this encounter [facility] 06-16-2023 Instructions Connor Gonzalez MD - 06/16/2023 1:[address] c/a/p mid 06/2023. Plan to start chemo weekly carbo/paclitaxel/keytruda after heart procedure. F/u end of 07/2023. documented in this encounter [facility] 05-31-2023 Note IR BIOPSY LYMPH NODE Pre-procedure diagnosis: See history below Post-procedure diagnosis: Same as above Assistants/resident: See the technologist's notes above Consent/pre-procedure evaluation: See below. Drummond protocol timeout verification performed. Estimated blood loss: [...] Alvin Lomeli MD on 05/31/2023 3:03 PM [facility] 05-17-2023 History of Present illness Narrative Estelle Julien is a 43 y.o. male Chief [...] effects. He is regardless interested in the nondenominational of maintenance of sinus rhythm because of [...] patient, lastly, that if in fact the nondenominational of maintenance of sinus rhythm has no [...] By signing my name below, I, Migdalia DuranBrianne ANDREWS , Scribe attest that this documentation has [...] discussion and plan. documented in this encounter [facility] Work Phone: 05-17-2023 Instructions Migdalia Garces LPN [...] 200mg twice daily documented in this encounter [facility] Work Phone: 12-01-2022 History of Present illness [...] an echocardiogram. An echo was performed and Artie in June of this year during and/or [...] 2. Primary hypertension 3. Paroxysmal atrial fibrillation (CMS/HCC) documented in this encounter [facility] Work Phone: 12-01-2022 Instructions Radha Tinsley LPN [...] visit. Echo ordered documented in this encounter [facility] Work Phone: 06-11-2022 Note HNO ID: [id number] Author: Katie Baez APRN.BLANK DRILLER Service: ? Author Type: Nurse Practitioner Type: [...] Past Histories independently gathered by the clinical computer support specialist instructor and the remaining scribed note accurately describes my personal service to the patient. Katie Baez, [email or web address] June 11, 2022 10:51 AM Medical Decision Making: Problems: Moderate: 2+ stable chronic illnesses Risk: Low: Low risk from (more content not included)... [facility] 06-11-2022 History of Present illness Narrative SKIN [...] Past Histories independently gathered by the clinical computer support specialist instructor and the remaining scribed note accurately describes my personal service to the patient. Katie Baez APRN.CNP June 11, 2022 10:51 AM Medical Decision Making: Problems: Moderate: 2+ stable chronic illnesses Risk: Low: Low risk from testing/treatment Medical Decision Making Level: 3 - Low documented in this encounter [facility] 10-14-2021 Evaluation note Encounter Date Diagnosis Assessment [...] Sep, Left hand pain (ICD-10 - M79.642) [facility] Other 08-22-2022 NotePROCEDURE: XR HAND LT MIN [...] Electronically authenticated by: JOSSELYN MOMIN Date: 2021-10-12 13:55[facility]03-29-2022 Evaluation note* Encounter Date Diagnosis Assessment Notes [...] sleepiness, or poor response to treatment. . [facility] Other Evaluation noteNo assessment information available [facility] Work Phone: Evaluation note* Diagnosis Seborrheic keratosis- Primary Other seborrheic keratosis Lentigines Other dyschromia Multiple benign nevi Benign neoplasm of skin, site unspecified Scott angioma Nevus, non-neoplastic Family history of skin cancer Family history of other specified malignant neoplasm Dermatofibroma Benign neoplasm of skin, site unspecified Telangiectasia of skin Other and unspecified capillary diseases [facility] Diagnosis Diastolic congestive heart failure, unspecified HF chronicity (CMS/HCC)- Primary Primary hypertension Unspecified essential hypertension Paroxysmal atrial fibrillation (CMS/HCC) Atrial fibrillation Malignant neoplasm of hilus of lung, unspecified laterality (CMS/HCC) documented in this encounter [facility] Work Phone: Evaluation note* Diagnosis Diastolic congestive heart failure, unspecified HF chronicity (CMS/HCC) Primary hypertension Unspecified essential hypertension Paroxysmal atrial fibrillation (CMS/HCC) Atrial fibrillation documented in this encounter [facility] Work Phone: Evaluation note* Diagnosis Diastolic congestive heart failure, unspecified HF chronicity (CMS/HCC) Primary hypertension Unspecified essential hypertension Paroxysmal atrial fibrillation (CMS/HCC) Atrial fibrillation documented in this encounter [facility] Work Phone: Evaluation note* Diagnosis Preop cardiovascular exam Pre-operative cardiovascular examination Diastolic congestive heart failure, unspecified HF chronicity (CMS/HCC) Primary hypertension Unspecified essential hypertension Paroxysmal atrial fibrillation (CMS/HCC) Atrial fibrillation BMI 39.0-39.9,adult High risk medication use Former smoker Personal history of tobacco use, presenting hazards to health documented in this encounter [facility] Work Phone: Evaluation note* Diagnosis Paroxysmal atrial fibrillation (Multi) Atrial fibrillation High risk medication use Former smoker Personal history of tobacco use, presenting hazards to health documented in this encounter [facility] Work Phone: Evaluation note* Diagnosis Persistent atrial fibrillation (Multi)- Primary Atrial fibrillation Paroxysmal atrial fibrillation (Multi) Atrial fibrillation BMI 37.0-37.9, adult Former smoker Personal history of tobacco use, presenting hazards to health High risk medication use Obstructive sleep apnea syndrome Obstructive sleep apnea (adult) (pediatric) Malignant neoplasm of lung, unspecified laterality, unspecified part of lung (Multi) Primary hypertension Unspecified essential hypertension Shortness of breath documented in this encounter [facility] Work Phone: Evaluation note* Diagnosis 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) [facility] 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)- Primary 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) [facility] Diagnosis Metastatic non-small cell lung cancer (CMS-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) [facility] 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)- Primary 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) [facility] Diagnosis 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 [facility] Diagnosis Metastatic non-small cell lung cancer (CMS-HCC)- Primary [facility] Diagnosis 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)- Primary 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) [facility] Diagnosis Metastatic non-small cell lung cancer (CMS-HCC)- Primary [facility] Diagnosis 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) Metastatic non-small cell lung cancer (CMS-HCC) [facility] Diagnosis 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)- Primary 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) Aching headache Headache [facility] Diagnosis 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)- Primary 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) [facility] Diagnosis 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)- Primary 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) [facility] Diagnosis 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 [facility] Diagnosis 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 [facility] Diagnosis 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)- Primary 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) Aching headache Headache [facility] Diagnosis 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) [facility] Diagnosis 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) [facility] Diagnosis 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)- Primary 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) Aching headache Headache [facility] Diagnosis 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)- Primary 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) Aching headache Headache [facility] Diagnosis 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) [facility] Diagnosis 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) [facility] Diagnosis SOB (shortness of breath)- Primary Shortness of breath 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) Obstructive sleep apnea Obstructive sleep apnea (adult) (pediatric) [facility] Diagnosis 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) [facility] Diagnosis 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)- Primary 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) [facility] Diagnosis Leg edema, right- Primary [facility] Diagnosis Leg edema, right- Primary 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) [facility] Diagnosis 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) Metastatic non-small cell lung cancer (CMS-HCC) [facility] Diagnosis 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)- Primary 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) [facility] Diagnosis 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 [facility] Diagnosis 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)- Primary 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) [facility] Diagnosis 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) [facility] Diagnosis 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) [facility] Diagnosis 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) [facility] Diagnosis 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)- Primary 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) [facility] Diagnosis 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)- Primary 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) [facility] Diagnosis 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) [facility] Diagnosis 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) [facility] Diagnosis 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)- Primary 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) [facility] Diagnosis 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) [facility] Diagnosis 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) [facility] Diagnosis Leg edema, right [facility] Diagnosis 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) Metastatic non-small cell lung cancer (CMS-HCC) [facility] Diagnosis 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)- Primary 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) [facility] Diagnosis 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)- Primary 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) [facility] Diagnosis Metastatic non-small cell lung cancer (CMS-HCC)- Primary 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 (CMS-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) [facility] Diagnosis 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) [facility] Diagnosis Metastatic non-small cell lung cancer (CMS-HCC)- Primary [facility] Diagnosis 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 [facility] Diagnosis 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) Metastatic non-small cell lung cancer (CMS-HCC) 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 (CMS-HCC) [facility] Diagnosis 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)- Primary 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) [facility] Diagnosis 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) [facility] Diagnosis 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) Anxiety Anxiety state, unspecified [facility] Diagnosis 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) [facility] Diagnosis 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) [facility] Diagnosis 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) [facility] Diagnosis 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)- Primary 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) Anxiety Anxiety state, unspecified Metastatic non-small cell lung cancer (CMS-HCC) [facility] Diagnosis Chronic HFrEF (heart failure with reduced ejection fraction) (CMS-HCC)- Primary Stage IV squamous cell carcinoma of lung, unspecified laterality (CMS-HCC) Metastatic non-small cell lung cancer (CMS-HCC) [facility] Diagnosis 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 [facility] Diagnosis Stage IV squamous cell carcinoma of lung, unspecified laterality (CMS-HCC)- Primary 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) [facility] Diagnosis 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 Stage IV squamous cell carcinoma of lung, unspecified laterality (CMS-HCC) [facility] Diagnosis Chronic HFrEF (heart failure with reduced ejection fraction) (CMS-HCC)- Primary Anxiety Anxiety state, unspecified Stage IV squamous cell carcinoma of lung, unspecified laterality (CMS-HCC) [facility] Diagnosis Chronic HFrEF (heart failure with reduced ejection fraction) ([facility])- Primary Anxiety Anxiety state, unspecified Stage IV squamous cell carcinoma of lung, 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) [facility] Diagnosis Chronic HFrEF (heart failure with reduced ejection fraction) (CMS-HCC)- Primary Anxiety Anxiety state, unspecified Stage IV squamous cell carcinoma of lung, 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) [facility] Diagnosis Chronic HFrEF (heart failure with reduced ejection fraction) ([facility])- Primary Anxiety Anxiety state, unspecified Stage IV squamous cell carcinoma of lung, 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, unspecified laterality (CMS-HCC)- Primary 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 ([facility]) [facility] Diagnosis Chronic HFrEF (heart failure with reduced ejection fraction) ([facility])- Primary Anxiety Anxiety state, unspecified Stage IV squamous cell carcinoma of lung, 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 Stage IV squamous cell carcinoma of lung, unspecified laterality (CMS-HCC) [facility] Diagnosis Chronic HFrEF (heart failure with reduced ejection fraction) ([facility])- Primary Anxiety Anxiety state, unspecified Stage IV squamous cell carcinoma of lung, 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, 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) Metastatic non-small cell lung cancer (CMS-HCC) [facility] Diagnosis Chronic HFrEF (heart failure with reduced ejection fraction) ([facility])- Primary Anxiety Anxiety state, unspecified Stage IV squamous cell carcinoma of lung, 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, unspecified laterality (CMS-HCC)- Primary 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) [facility] Diagnosis Chronic HFrEF (heart failure with reduced ejection fraction) ([facility])- Primary Anxiety Anxiety state, unspecified Stage IV squamous cell carcinoma of lung, 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) [facility] Diagnosis Chronic HFrEF (heart failure with reduced ejection fraction) ([facility])- Primary Anxiety Anxiety state, unspecified Stage IV squamous cell carcinoma of lung, 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) [facility] Diagnosis Chronic HFrEF (heart failure with reduced ejection fraction) ([facility])- Primary Anxiety Anxiety state, unspecified Stage IV squamous cell carcinoma of lung, 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 Stage IV squamous cell carcinoma of lung, unspecified laterality (CMS-HCC) [facility] Diagnosis Chronic HFrEF (heart failure with reduced ejection fraction) ([facility])- Primary Anxiety Anxiety state, unspecified Stage IV squamous cell carcinoma of lung, 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, unspecified laterality (CMS-HCC)- Primary 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-HCC) [facility] Diagnosis Chronic HFrEF (heart failure with reduced ejection fraction) ([facility])- Primary Anxiety Anxiety state, unspecified Stage IV squamous cell carcinoma of lung, 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 ([facility])- Primary Stage IV squamous cell carcinoma of lung, unspecified laterality (CMS-HCC) [facility] Diagnosis Chronic HFrEF (heart failure with reduced ejection fraction) ([facility])- Primary Anxiety Anxiety state, unspecified Stage IV squamous cell carcinoma of lung, unspecified laterality (CMS-HCC) 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) SOB (shortness of breath) Shortness of breath [facility] Diagnosis Chronic HFrEF (heart failure with reduced ejection fraction) (CMS-HCC)- Primary Anxiety Anxiety state, unspecified Stage IV squamous cell carcinoma of lung, unspecified laterality (CMS-HCC) 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) SOB (shortness of breath) Shortness of breath [facility] Diagnosis Chronic HFrEF (heart failure with reduced ejection fraction) ([facility])- Primary Anxiety Anxiety state, unspecified Stage IV squamous cell carcinoma of lung, 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, unspecified laterality (CMS-HCC)- Primary 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 ([facility]) [facility] Diagnosis Chronic HFrEF (heart failure with reduced ejection fraction) (CMS-HCC)- Primary Anxiety Anxiety state, unspecified Stage IV squamous cell carcinoma of lung, 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 Stage IV squamous cell carcinoma of lung, unspecified laterality (CMS-HCC) Metastatic non-small cell lung cancer (CMS-HCC) Shortness of breath [facility] Diagnosis Chronic HFrEF (heart failure with reduced ejection fraction) ([facility])- Primary Anxiety Anxiety state, unspecified Stage IV squamous cell carcinoma of lung, 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 ([facility]-H[facility])- Primary Stage IV squamous cell carcinoma of lung, unspecified laterality (CMS-HCC) [facility] Diagnosis Chronic HFrEF (heart failure with reduced ejection fraction) ([facility])- Primary Anxiety Anxiety state, unspecified Stage IV squamous cell carcinoma of lung, unspecified laterality ([facility]-HCC) Stage IV squamous cell carcinoma of lung, unspecified laterality ([facility]-HCC) 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 ([facility]-HCC) Metastatic non-small cell lung cancer ([facility]) [facility] Diagnosis Chronic HFrEF (heart failure with reduced ejection fraction) ([facility])- Primary Anxiety Anxiety state, unspecified Stage IV squamous cell carcinoma of lung, unspecified laterality ([facility]) 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 Surgical History carpal tunnel release bilateral Hospitalization History CHF 2020 [facility] Other History of Present illness NarrativeReturns in follow- up of problems as noted. In the interim he is done well. Hypertension is well controlled. His test results from the [facility] were reviewed. They basically were normal. There [...] lifestyle modification exercise weight loss and smoking cessation.-[facility]-Luis Eduardo 250 DO Work Phone: History of Present illness [...] as diet and weight loss [facility] advocated. [facility] Work Phone: History of Present illness [...] to promptly address them over the phone. [facility] Work Phone: InstructionsNot on filedocumented in this encounter [facility] [employer] SystemInstructionsNot on filedocumented in this encounter [facility] [employer] SystemInstructionsNot on filedocumented in this encounter [facility] filedocumented in [facility] filedocumented in this [facility] filedocumented in this encounter [facility] filedocumented in this encounter [facility] filedocumented in this encounter [facility] filedocumented in this encounter [facility] on filedocumented in this encounter [facility] on filedocumented in this encounter [facility] on filedocumented in this encounter [facility] on filedocumented in this encounter [facility] on filedocumented in this encounter [facility] on filedocumented in this encounter [facility] on filedocumented in this encounter [facility] on filedocumented in this encounter [facility] on filedocumented in this encounter [facility] on filedocumented in this encounter [facility] on filedocumented in this encounter [facility] on filedocumented in this encounter [facility] on filedocumented in this encounter [facility] on filedocumented in this encounter [facility] on filedocumented in this encounter [facility] on filedocumented in this encounter [facility] on filedocumented in this encounter [facility] on filedocumented in this encounter [facility] on filedocumented in this encounter [facility] on filedocumented in this encounter [facility] on filedocumented in this encounter [facility] on filedocumented in this encounter [facility]ructionsNot on filedocumented in this encounter [facility] on filedocumented in this encounter [facility] on filedocumented in this encounter [facility]ructionsNot on filedocumented in this encounter [facility] SystemReason for referral (narrative)* Consultation (Routine) - Authorized Specialty Diagnoses / Procedures Referred By Contac t Referred To Contact Cardiology Diagnoses Diastolic congestive heart failure, unspecified HF chronicity (CMS/HCC) Primary hypertension Paroxysmal atrial fibrillation (CMS/HCC) Procedures Follow Up In Cardiology Fermin Wall MD [address] [place] [address] 2, [address] [address] Referral ID Status Reason Start Date Expiration Date V isits Requested Visits Authorized [id number] Authorized 12/01/2022 05/30/2023 1 1 * CV Imaging (Routine) - Pending Review Specialty Diagnoses / Procedures Referred By Contac t Referred To Contact Cardiology Diagnoses Diastolic congestive heart failure, unspecified HF chronicity (CMS/HCC) Primary hypertension Paroxysmal atrial fibrillation (CMS/HCC) Procedures Transthoracic Echo (TTE) Complete PA ECHO TRANSTHORC R-T 2D W/WO M-MODE REC F-UP/LMTD PA DOP ECHOCARD COLOR FLOW VELOCITY MAPPING PA DOP ECHOCARD PULSE WAVE W/SPECTRAL F-UP/LMTD STD Fermin Wall MD [address] [facility] 2, [address] [address] Referral ID Status Reason Start Date Expiration Date Visits Requested Visits Authorized [id number] Pending Review Perform Procedure 05/30/2023 1 1 [facility] Work Phone: Reason for referral (narrative)* Consultation (Routine) - Authorized Specialty Diagnoses / Procedures Referred By Contac t Referred To Contact Cardiology Diagnoses Paroxysmal atrial fibrillation (Multi) Procedures Follow Up In Cardiology Heladio Davis MD [address] [facility] 2, [address] [address] Heladio Davis MD [address] [facility] 2, [address] [place] [address] Referral ID Status Reason Start Date Expiration Date V isits Requested Visits Authorized [id number] Authorized 11/02/2023 11/01/2024 1 1 [facility] Work Phone: Reason for referral (narrative)* Consultation (Routine) - Pending Review Specialty Diagnoses / Procedures Referred By Patsy bajwa Referred To Contact Pulmonary Medicine Diagnoses 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 ARVIN JULIEN is being seen for a 3 week follow-up of. Family History Unknown Family Member Name Dates Details Heart problem: [...] follow up after new mask Advance Directives Advance Directive Response Recorded Date/ Time Advance Directives No July 02 12:31pm Date Activated Date Inactivated Comments 02/08/2017 3:07 PM 02/09/2017 12:20 PM Date Activated Date Inactivated Comments 02/08/2017 3:07 PM 02/09/2017 12:20 PM Latest Code Status on File Code Status Date Activated Date Inactivated Comments Full Code 02/08/2017 3:07 PM 02/09/2017 12:20 PM Date Activated Date Inactivated Comments 08/29/2024 9:48 PM 08/30/2024 7:10 PM Date Activated Date Inactivated Comments 02/08/2017 3:07 PM 02/09/2017 12:20 PM Summary Purpose Reason for Referral Specialty Diagnoses / Procedures Referred By Contac t Referred To Contact Radiology Diagnoses 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) Procedures CT abdomen and pelvis with contrast Connor Gonzalez MD [address] [place] [phone] Referral ID Status Reason Start Date Expiration Date V isits Requested Visits Authorized [id number] Pending Review 09/20/2023 09/19/2024 1 1 Specialty Diagnoses / Procedures Referred By Contac t Referred To Contact Radiology Diagnoses 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) Procedures CT chest with contrast Connor Gonzalez MD [address] [place] [address] [address] [place] [id number] Referral ID Status Reason Start Date Expiration Date V isits Requested Visits Authorized [id number] Pending Review 09/20/2023 09/19/2024 1 1 Specialty Diagnoses / Procedures Referred By Contac t Referred To Contact Diagnoses Leg edema, right Procedures Vas venous duplex lwr single right Connor Gonzalez MD [address] [place] [address] [address] [place] [address] Referral ID Status Reason Start Date Expiration Date V isits Requested Visits Authorized [id number] Pending Review 09/13/2023 09/12/2024 1 1 Specialty Diagnoses / Procedures Referred By Contac t Referred To Contact Radiology Diagnoses 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) Metastatic non-small cell lung cancer (CMS-HCC) Procedures MR brain with and without contrast Connor Gonzlaez MD [address] [place] [address] [address] [place] [phone] Referral ID Status Reason Start Date Expiration Date V isits Requested Visits Authorized [id number] Authorized 08/05/2023 09/19/2023 1 1 Specialty Diagnoses / Procedures Referred By Contac t Referred To Contact Radiology Diagnoses Metastatic non-small cell lung cancer (CMS-HCC) Procedures CT abdomen and pelvis with contrast Connor Gonzalez MD [address] [place] [address] [address] [place] [address] Referral ID Status Reason Start Date Expiration Date V isits Requested Visits Authorized [id number] Pending Review 06/16/2023 06/15/2024 1 1 Specialty Diagnoses / Procedures Referred By Contac t Referred To Contact Radiology Diagnoses Metastatic non-small cell lung cancer (CMS-HCC) Procedures CT chest with contrast Connor Gonzalez MD [address] [place] [address] [address] [place] [address] Referral ID Status Reason Start Date Expiration Date V isits Requested Visits Authorized [id number] Pending Review 06/16/2023 06/15/2024 1 1 Specialty Diagnoses / Procedures Referred By Contac t Referred To Contact Diagnoses Paroxysmal atrial fibrillation (Multi) Procedures ECG 12 Lead Fermin Wall MD [address] [facility] 2, [address] [address] Referral ID Status Reason Start Date Expiration Date V isits Requested Visits Authorized [id number] Authorized 07/20/2023 07/19/2024 1 1 Specialty Diagnoses / Procedures Referred By Contac t Referred To Contact Cardiology Diagnoses Paroxysmal atrial fibrillation (Multi) Procedures Follow Up In Cardiology Fermin Wall MD [address] [place] [address] 2, [address] [address] Fermin Wall MD [address] [place] [address] 2, [address] [place] [phone] Referral ID Status Reason Start Date Expiration Date V isits Requested Visits Authorized [id number] Authorized 07/20/2023 07/19/2024 1 1 Specialty Diagnoses / Procedures Referred By Contac t Referred To Contact Cardiology Diagnoses Paroxysmal atrial fibrillation (CMS/HCC) High risk medication use Procedures Cardioversion External Fermin Wall MD [address] [place] [address] [address], [address] [address] Referral ID Status Reason Start Date Expiration Date V isits Requested Visits Authorized [id number] Pending Review 05/17/2023 05/16/2024 1 1 Specialty Diagnoses / Procedures Referred By Contac t Referred To Contact Diagnoses Preop cardiovascular exam Procedures ECG 12 Lead Fermin Wall MD [address] [place] [address] [address], [address] [address] Referral ID Status Reason Start Date Expiration Date V isits Requested Visits Authorized [id number] Authorized 05/17/2023 05/16/2024 1 1 Specialty Diagnoses / Procedures Referred By Contac t Referred To Contact Cardiology Diagnoses Paroxysmal atrial fibrillation (CMS/HCC) Procedures Follow Up In Cardiology Fermin Wall MD [address] [place] [address] [address], [address] [address] Fermin Wall MD [address] [place] [address] [address], [address] [address] Referral ID Status Reason Start Date Expiration Date V isits Requested Visits Authorized [id number] Authorized 05/17/2023 05/16/2024 1 1 Specialty Diagnoses / Procedures Referred By Patsy bajwa Referred To Contact Cardiology Diagnoses Diastolic congestive heart failure, unspecified HF chronicity (CMS/HCC) Primary hypertension Paroxysmal atrial fibrillation (CMS/HCC) Procedures Transthoracic Echo (TTE) Complete PA ECHO TRANSTHORC R-T 2D W/WO M-MODE REC F-UP/LMTD PA DOP ECHOCARD COLOR FLOW VELOCITY MAPPING PA DOP ECHOCARD PULSE WAVE W/SPECTRAL F-UP/LMTD STD Fermin Wall MD [address] [facility] 2, [facility] [address] [place] [address] Referral ID Status Reason Start Date Expiration Date Visits Requested Visits Authorized [id number] Authorized Perform Procedure 3 05/30/2023 1 1 Additional Source Comments REASON FOR VISIT (unrecogniz ed section and content) Reason Onset Date Comments Transition Of Care 08/31/2024 Reason Onset Date Comments Med Refill 09/03/2024 Reason Onset Date Comments Med Refill 08/11/2024 Reason Comments Labs Only Port/VAD Care Reason Comments Chemotherapy Gemzar/Carboplatin Specialty Diagnoses / Procedures Referred By Patsy bajwa Referred To Contact Diagnoses 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) Procedures PA GEMCITABINE HCL PA CARBOPLATIN INJECTION PA DEXAMETHASONE SODIUM PHOS PA PALONOSETRON HCL PA FOSAPREPITANT INJECTION Connor Gonzalez MD [address] [place] [address] [address] [place] [address] Phone: tel: fax: [facility] [address] [place] [phone] Phone: tel: fax: Referral ID Status Reason Start Date Expiration Date V isits Requested Visits Authorized [id number] Authorized 06/19/2024 06/19/2025 10 10 Reason Onset Date Comments Med Refill 08/02/2024 Reason Comments Chemotherapy Gemzar Specialty Diagnoses / Procedures Referred By Contac t Referred To Contact Diagnoses Non-small cell lung cancer metastatic to lymph node of head and neck region ([facility]) Procedures PA GEMCITABINE HCL PA CARBOPLATIN INJECTION PA DEXAMETHASONE SODIUM PHOS PA PALONOSETRON HCL PA FOSAPREPITANT INJECTION Connor Gonzalez MD [address] [place] [address] [address] [place] [address] Phone: tel: fax: Kristine [facility] [address] [place] [phone] Phone: tel: fax: Referral ID Status Reason Start Date Expiration Date V isits Requested Visits Authorized [id number] Authorized 06/19/2024 06/19/2025 10 10 Reason Comments Port/VAD Care Port draw- CBC, CMP Reason Onset Date Comments Med Refill 07/04/2024 Reason Comments Chemotherapy C1 Gemzar Carboplati n Specialty Diagnoses / Procedures Referred By [facility] Referred To Contact Diagnoses Non-small cell lung cancer metastatic to lymph node of head and neck region ([facility]) Procedures PA GEMCITABINE HCL PA CARBOPLATIN INJECTION PA DEXAMETHASONE SODIUM PHOS PA PALONOSETRON HCL PA FOSAPREPITANT INJECTION Connor Gonzalez MD [address] [place] [address] [address] [place] [phone] Phone: tel: fax: Krist[facility] [address] [place] [phone] Phone: tel: fax: Referral ID Status Reason Start Date Expiration Date V isits Requested Visits Authorized [id number] Authorized 06/19/2024 06/19/2025 10 10 Reason Comments Establish Care Reason Onset Date Comments Med Refill 05/30/2024 Reason Onset Date Comments Med Refill 05/11/2024 Reason Comments Labs Only CBC CMP via [place] w Reason Onset Date Comments Med Refill 11/01/2023 Reason Comments Chemotherapy Abraxane and Carbopl atin Specialty Diagnoses / Procedures Referred By [facility] t Referred To Contact Diagnoses 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) Procedures PA CARBOPLATIN INJECTION PA PACLITAXEL PROTEIN BOUND PA FOSAPREPITANT INJECTION PA PALONOSETRON HCL PA DEXAMETHASONE SODIUM PHOS PA INJECTION, PACLITAXEL PROTEIN-BOUND PARTICLES ([place]) NOT THERAPEUTICALLY EQUIVALENT TO J9264, 1 MG Connor Gonzalez MD [address] [place] [address] [facility] [address] [place] [phone] Referral ID Status Reason Start Date Expiration Date V isits Requested Visits Authorized [id number] Authorized 09/22/2023 09/22/2024 4 4 Reason Comments Chemotherapy Abraxane/Carboplatin Specialty Diagnoses / Procedures Referred By P[facility]y t Referred To Contact Diagnoses Non-small cell lung cancer metastatic to lymph node of head and neck region ([facility]) Procedures PA CARBOPLATIN INJECTION PA PACLITAXEL PROTEIN BOUND PA FOSAPREPITANT INJECTION PA PALONOSETRON HCL PA DEXAMETHASONE SODIUM PHOS PA INJECTION, PACLITAXEL PROTEIN-BOUND PARTICLES ([place]) NOT THERAPEUTICALLY EQUIVALENT TO J9264, 1 MG Connor Gonzalez MD [address] [place], [place] [address] [place] [address] [facility] [address] [place] [phone] Referral ID Status Reason Start Date Expiration Date V isits Requested Visits Authorized [id number] Authorized 09/22/2023 09/22/2024 4 4 Reason Comments New Patient Squamous cell carcin nancy of left Lung. Receiving chemo Non smoker Wheezing Always Cough On occasions with gr een and yellow Shortness of Breath Some days are real b ad. 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) Non-small cell lung cancer metastatic to lymph node of head and neck region ([facility]) Connor Gonzalez MD [address] [place] [address] Norma Davis DO [address] [place] [address] Referral ID Status Reason Start Date Expiration Date Visits Requested Visits Authorized [id number] Pending Review Specialty Services Required 07/19/2023 07/18/2024 1 1 Reason Comments Chemotherapy Taxol/carboplatin Specialty Diagnoses / Procedures [facility] Contact Diagnoses 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 WISE), 5 MG PA INJECTION, CYCLOPHOSPHAMIDE (INGENUS), 5 MG PA INJECTION, CYCLOPHOSPHAMIDE (SANDOZ), 5 MG PA INJECTION, CYCLOPHOSPHAMIDE, NOT OTHERWISE SPECIFIED, 5 MG PA PALONOSETRON HCL PA FOSAPREPITANT INJECTION PA DEXAMETHASONE SODIUM PHOS PA DIPHENHYDRAMINE HCL INJECTIO PA [place] IN[place] [address] [place] [address] [address] [place] [address] [facility] Med On[facility] [address] [place] [phone] Referral ID Status Reason Start Date Expiration Date V isits Requested Visits Authorized [id number] Authorized 06/16/2023 01/21/2024 18 18 Reason Comments Port/VAD Care Port draw Outpatient Infusion hydration Reason Comments Port/VAD Care Outpatient Infusion Hydration Reason Comments Chemotherapy Carbo Taxol Specialty Diagnoses / Procedures [facility] Referred To Contact Diagnoses 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 WISE), 5 MG PA INJECTION, CYCLOPHOSPHAMIDE (INGENUS), 5 MG PA INJECTION, CYCLOPHOSPHAMIDE (SANDOZ), 5 MG PA INJECTION, CYCLOPHOSPHAMIDE, NOT OTHERWISE SPECIFIED, 5 MG PA PALONOSETRON HCL PA FOSAPREPITANT INJECTION PA DEXAMETHASONE SODIUM PHOS PA DIPHENHYDRAMINE HCL INJECTIO PA GRANISETRON HCL INJECTION Connor Gonzalez MD [address] [place] [address] [facility] Med On[facility] [address] [place] [phone] Referral ID Status Reason Start Date Expiration Date V isits Requested Visits Authorized [id number] Authorized 06/16/2023 01/21/2024 18 18 Reason Comments Chemotherapy Taxol carbo Specialty Diagnoses / Procedures Referred By Contac t Referred To Contact Diagnoses 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 THORNTONS), 5 MG PA INJECTION, CYCLOPHOSPHAMIDE (INGENUS), 5 MG PA INJECTION, CYCLOPHOSPHAMIDE (SANDOZ), 5 MG PA INJECTION, CYCLOPHOSPHAMIDE, NOT OTHERWISE SPECIFIED, 5 MG PA PALONOSETRON HCL PA FOSAPREPITANT INJECTION PA DEXAMETHASONE SODIUM PHOS PA DIPHENHYDRAMINE HCL INJECTIO PA GRANISETRON HCL INJECTION Connor Gonzalez MD [address] [place] [address] [facility] Med On[facility] [address] [place] [phone] Referral ID Status Reason Start Date Expiration Date V isits Requested Visits Authorized [id number] Authorized 06/16/2023 01/21/2024 18 18 Reason Comments Port/VAD Care CBC CMP Reason Comments Outpatient Infusion Reason Comments New Patient Reason Comments Chemotherapy Abraxane Carbo Specialty Diagnoses / Procedures Referred By Contac t Referred To Contact Diagnoses 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) Procedures PA CARBOPLATIN INJECTION PA PACLITAXEL PROTEIN BOUND PA FOSAPREPITANT INJECTION PA PALONOSETRON HCL PA DEXAMETHASONE SODIUM PHOS PA INJECTION, PACLITAXEL PROTEIN-BOUND PARTICLES (hi5T) NOT THERAPEUTICALLY EQUIVALENT TO J9264, 1 MG Connor Gonzalez MD [address] [place] [address] Phone: tel: fax: Kristine Dumont [facility] Medical On[facility] [address] [place] [phone] Phone: tel: fax: Referral ID Status Reason Start Date Expiration Date V isits Requested Visits Authorized [id number] Authorized 09/22/2023 09/22/2024 15 15 Reason Comments Port/VAD Care Port Draw Reason Comments Med Refill Reason Comments Port/VAD Care Port Flush Reason Comments Follow-up 3 months Specialty Diagnoses / Procedures Referred By Contac t Referred To Contact Cardiology Diagnoses Paroxysmal atrial fibrillation (Multi) Procedures Follow Up In Cardiology Fermin Wall MD Retired From Practice Fermin Wall MD Retired From Practice Referral ID Status Reason Start Date Expiration Date V isits Requested Visits Authorized [id number] Authorized 07/20/2023 07/19/2024 1 1 Reason Comments Follow-up dcc Specialty Diagnoses / Procedures Referred By Contac t Referred To Contact Cardiology Diagnoses Paroxysmal atrial fibrillation (Multi) Procedures Follow Up In Cardiology Fermin Wall MD [address] [place] [address] [address], [address] [address] Fermin Wall MD [address] [place] [address] [address], [address] [address] Referral ID Status Reason Start Date Expiration Date V isits Requested Visits Authorized [id number] Authorized 05/17/2023 05/16/2024 1 1 Reason Comments Follow-up Echo results Pre-op Clearance Lung biopsy Specialty Diagnoses / Procedures Referred By Contac t Referred To Contact Cardiology Diagnoses Diastolic congestive heart failure, unspecified HF chronicity (CMS/HCC) Primary hypertension Paroxysmal atrial fibrillation (CMS/HCC) Procedures Follow Up In Cardiology Fermin Wall MD [address] [facility] 2, [address] [address] Referral ID Status Reason Start Date Expiration Date V isits Requested Visits Authorized [id number] Authorized 12/01/2022 05/30/2023 1 1 Specialty Diagnoses / Procedures Referred By Contac t Referred To Contact Cardiology Diagnoses Diastolic congestive heart failure, unspecified HF chronicity (CMS/HCC) Primary hypertension Paroxysmal atrial fibrillation (CMS/HCC) Procedures Transthoracic Echo (TTE) Complete PA ECHO TRANSTHORC R-T 2D W/WO M-MODE REC F-UP/LMTD PA DOP ECHOCARD COLOR FLOW VELOCITY MAPPING PA DOP ECHOCARD PULSE WAVE W/SPECTRAL F-UP/LMTD STD Fermin Wall MD [address] [facility] 2, [address] [address] Referral ID Status Reason Start Date Expiration Date Visits Requested Visits Authorized [id number] Authorized Perform Procedure 05/30/2023 1 1 Reason [...] Active Johnnie Bruce MD Attending Provider Active Twine Winder Relationship Specialty Start Date End Date Carlos Coates [facility] [address] [place] [address] PCP - General Family Medicine 09/14/19 Twine Winder Relationship Specialty Start Date End Date Generic Provider, No Assigned MD [place] [address] [place] [address] PCP - General Family Medicine 01/01/23 Twine Winder Relationship Specialty Start Date End Date Generic Provider, No Assigned MD [address] [place] [address] PCP - General Family Medicine 01/01/23 Twine Winder Relationship Specialty Start Date End Date Generic Provider, No Assigned MD Carlton PCP - General Family Medicine 01/01/23 Twine Winder Relationship Specialty Start Date End Date Generic Provider, No Assigned MD Carlton PCP - General Family Medicine 01/01/23 Twine Winder Relationship Specialty Start Date End Date Generic Provider, No Assigned Pcp, PCP - [facility] Medicine 01/01/23 Twine Winder Relationship Specialty Start Date End Date No Pcp, [place] [address] PCP - [facility] Medicine 11/19/19 Twine Winder Relationship Specialty Start Date End Date No Pcp, [place] [address] PCP - [facility] Medicine 11/19/19 Twine Winder Relationship Specialty Start Date End Date No Pcp, [place] [address] PCP - [facility] Medicine 11/19/19 Twine Winder Relationship Specialty Start Date End Date No Pcp, [place] [address] PCP - [facility] 11/19/19 Twine Winder Relationship Specialty Start Date End Date No Pcp, [place] [address] PCP - [facility] 11/19/19 Twine Winder Relationship Specialty Start Date End Date No Pcp, [place] [address] PCP - [facility] 11/19/19 Twine Winder Relationship Specialty Start Date End Date No Pcp, [place] [address] PCP - [facility] 11/19/19 Twine Winder Relationship Specialty Start Date End Date No Pcp, [place] [address] PCP - [facility] 11/19/19 Twine Winder Relationship Specialty Start Date End Date No Pcp, [place] [address] PCP - [facility] 11/19/19 Twine Winder Relationship Specialty Start Date End Date No Pcp, [place] [address] PCP - [facility] 11/19/19 Twine Winder Relationship Specialty Start Date End Date No Pcp, [place] [address] PCP - [facility] 11/19/19 Twine Winder Relationship Specialty Start Date End Date No Pcp, [place] [address] PCP - [facility] 11/19/19 Twine Winder Relationship Specialty Start Date End Date No Pcp, [place] [address] PCP - [facility] 11/19/19 Twine Winder Relationship Specialty Start Date End Date No Pcp, [place] [address] PCP - [facility] 11/19/19 Twine Winder Relationship Specialty Start Date End Date No Pcp, [place] [address] PCP - [facility] Medicine 11/19/19 Twine Winder Relationship Specialty Start Date End Date No Pcp, [place] [address] PCP - [facility] Medicine 11/19/19 Twine Winder Relationship Specialty Start Date End Date No Pcp, [place] [address] PCP - [facility] Medicine 11/19/19 Twine Winder Relationship Specialty Start Date End Date No Pcp, [place] [address] PCP - [facility] Medicine 11/19/19 Twine Winder Relationship Specialty Start Date End Date No Pcp, [place] [address] PCP - [facility] Medicine 11/19/19 Twine Winder Relationship Specialty Start Date End Date No Pcp, [place] [address] PCP - [facility] Medicine 11/19/19 Twine Winder Relationship Specialty Start Date End Date No Pcp, [place] [address] PCP - [facility] Medicine 11/19/19 Twine Winder Relationship Specialty Start Date End Date No Pcp, [place] [address] PCP - [facility] Medicine 11/19/19 Twine Winder Relationship Specialty Start Date End Date No Pcp, [place] [address] PCP - [facility] Medicine 11/19/19 Twine Winder Relationship Specialty Start Date End Date No Pcp, [place] [address] PCP - [facility] Medicine 11/19/19 Twine Winder Relationship Specialty Start Date End Date No Pcp, [place] [address] PCP - [facility] Medicine 11/19/19 Twine Winder Relationship Specialty Start Date End Date No Pcp, [place] [address] PCP - [facility] Medicine 11/19/19 Twine Winder Relationship Specialty Start Date End Date No Pcp, [place] [address] PCP - [facility] Medicine 11/19/19 Twine Winder Relationship Specialty Start Date End Date No Pcp, [place] [address] PCP - [facility] Medicine 11/19/19 Twine Winder Relationship Specialty Start Date End Date No Pcp, [place] [address] PCP - [facility] Medicine 11/19/19 Twine Winder Relationship Specialty Start Date End Date No Pcp, [place] [address] PCP - [facility] Medicine 11/19/19 Twine Winder Relationship Specialty Start Date End Date No Pcp, [place] [address] PCP - [facility] Medicine 11/19/19 Twine Winder Relationship Specialty Start Date End Date No Pcp, [place] [address] PCP - General Family Medicine 11/19/19 Twine Winder Relationship Specialty Start Date End Date No Pcp, [place] [address] PCP - General Family Medicine 11/19/19 Twine Winder Relationship Specialty Start Date End Date No Pcp, [place] [address] PCP - [facility] Medicine 11/19/19 Twine Winder Relationship Specialty Start Date End Date No Pcp, [place] [address] PCP - General Family Medicine 11/19/19 Twine Winder Relationship Specialty Start Date End Date No Pcp, [place] [address] PCP - General Family Medicine 11/19/19 Twine Winder Relationship Specialty Start Date End Date No Pcp, [place] [address] PCP - General [facility] Medicine 11/19/19 Twine Winder Relationship Specialty Start Date End Date No Pcp, [place] [address] PCP - [facility] Medicine 11/19/19 Twine Winder Relationship Specialty Start Date End Date No Pcp, [place] [address] PCP - [facility] Medicine 11/19/19 Twine Winder Relationship Specialty Start Date End Date No Pcp, [place] [address] PCP - General [facility] Medicine 11/19/19 Twine Winder Relationship Specialty Start Date End Date No Pcp, [place] [address] PCP - [facility] Medicine 11/19/19 Twine Winder Relationship Specialty Start Date End Date No Pcp, [place] [address] PCP - [facility] Medicine 11/19/19 Twine Winder Relationship Specialty Start Date End Date No Pcp, [place] [address] PCP - [facility] Medicine 11/19/19 Twine Winder Relationship Specialty Start Date End Date No Pcp, [place] [address] PCP - [facility] Medicine 11/19/19 Twine Winder Relationship Specialty Start Date End Date No Pcp, [place] [address] PCP - [facility] Medicine 11/19/19 Twine Winder Relationship Specialty Start Date End Date Katie Torres DO [address] [facility] [address] [place] [address] PCP - General [facility] Medicine 06/14/24 Twine Winder Relationship Specialty Start Date End Date Katie Torres DO [address] [place] [address] PCP - General Family Medicine 06/14/24 Twine Winder Relationship Specialty Start Date End Date Katie Torres DO [address] [place] [address] PCP - General Family Medicine 06/14/24 Twine Winder Relationship Specialty Start Date End Date Katie Torres DO [address], [address] [place] [address] PCP - General Family Medicine 06/14/24 Twine Winder Relationship Specialty Start Date End Date Katie Torres DO [address], [address] [place] [address] PCP - General Family Medicine 06/14/24 Twine Winder Relationship Specialty Start Date End Date Katie Torres DO [address], [address] [place] [address] PCP - General Family Medicine 06/14/24 Twine Winder Relationship Specialty Start Date End Date Katie Torres DO [address], [address] [place] [address] PCP - General Family Medicine 06/14/24 Twine Winder Relationship Specialty Start Date End Date Katie Torres DO [address], [address] [place] [address] PCP - General Family Medicine 06/14/24 Twine Winder Relationship Specialty Start Date End Date Katie Torres DO [address], [address] [place] [address] PCP - General Family Medicine 06/14/24 Twine Winder Relationship Specialty Start Date End Date Katie Torres DO [address], [address] [place] [address] PCP - General Family Medicine 06/14/24 Twine Winder Relationship Specialty Start Date End Date Katie Torres DO [address], [address] [place] [address] PCP - General Family Medicine 06/14/24 Twine Winder Relationship Specialty Start Date End Date Katie Torres DO [address], [address] [place] [address] PCP - General Family Medicine 06/14/24 Twine Winder Relationship Specialty Start Date End Date Katie Torres DO [address], [address] [place] [address] PCP - General Family Medicine 06/14/24 Twine Winder Relationship Specialty Start Date End Date Katie Torres DO [address], [address] [place] [address] PCP - General Family Medicine 06/14/24 Twine Winder Relationship Specialty Start Date End Date Katie Torres DO [address], [address] [place] [address] PCP - General Family Medicine 06/14/24 Twine Winder Relationship Specialty Start Date End Date Katie Torres DO [address], [address] [place] [address] PCP - General Family Medicine 06/14/24 Twine Winder Relationship Specialty Start Date End Date Katie Torres DO [address] [place] [address] PCP - General Family Medicine 06/14/24 Twine Winder Relationship Specialty Start Date End Date Katie Torres DO [address], [address] [place] [address] PCP - General Family Medicine 06/14/24 Twine Winder Relationship Specialty Start Date End Date Katie Torres DO [address] [place] [address] PCP - General Family Medicine 06/14/24 Twine Winder Relationship Specialty Start Date End Date Katie Torres DO [address] [place] [address] [place] [address] PCP - General Family Medicine 06/14/24 Goals (unrecognized section and content) Goals may [...] section and content) DATE CREATED AUTHOR 03/04/2022 [facility] DATE CREATED AUTHOR AUTHOR'S ORGANIZ ATION 03/04/2022 [facility] DATE CREATED AUTHOR AUTHOR'S ORGANIZ ATION 06/02/2022 [facility] DATE CREATED AUTHOR AUTHOR'S ORGANIZ ATION 06/12/2022 [facility] DATE CREATED AUTHOR AUTHOR'S ORGANIZ ATION 07/21/2023 [facility] DATE CREATED AUTHOR AUTHOR'S ORGANIZ ATION 10/29/2023 [facility] DATE CREATED AUTHOR AUTHOR'S ORGANIZ ATION 11/03/2023 [facility] DATE CREATED AUTHOR AUTHOR'S ORGANIZ ATION 11/04/2023 [facility] DATE CREATED AUTHOR AUTHOR'S ORGANIZ ATION 02/23/2024 [facility] DATE CREATED AUTHOR AUTHOR'S ORGANIZ ATION 07/01/2024 [facility] DATE CREATED AUTHOR AUTHOR'S ORGANIZ ATION 07/24/2024 [facility] DATE CREATED AUTHOR AUTHOR'S ORGANIZ ATION 09/02/2024 [facility] Source Comments (unrecognize d section and content) In the event this informatio n is protected by the Federal Confidentiality of Alcohol and Drug Abuse Patient Records regulations: The Federal rules restrict any use of the information to criminally investigate or prosecute any alcohol or drug abuse patient.[facility] FOR RECORDS PERTAINING TO PATIENTS WHO ARE [...] BE BASED ON THE PRIMARY CLINICAL RECORDS. [facility]. provides no warranty or guarantee of the accuracy or completeness of information in this document.
--- OUTSIDE RECORDS SUMMARY | 2024-09-11 00:12 | XMS_ITS | Clinical Summary ---
Author Organization [facility] Address [address] [place] [address] Care Team Providers Care Diesel Automotive Technician Name Role Phone Addison Ortiz MD Unavailable [phone] Galdino Frye MD Unavailable [phone] Allergies Active Allergy Reactions Criticality Noted Date Comments Celecoxib GI intolerance,Hives 01/26/2011 Other reaction(s): GI Distress, Hives Medications buprenorphine-n aloxone (Suboxone) 8-2 mg SL film dissolve 1 FILM under the tongue twice a day 06/02/19 23 Active amiodarone (Pacerone) 200 mg tabletIndicatio ns:Persistent atrial fibrillation (CMS/HCC) Take 1 tablet (200 mg) by mouth once daily as directed. 90 tablet 3 12/05/19 24 Active dapagliflozin propanediol (Farxiga) 10 mgIndications:h eart failure Take 1 tablet (10 mg) by mouth once daily as directed. 90 tablet 3 12/05/19 24 Active losartan (Cozaar) 25 mg tabletIndicatio ns:Chronic systolic congestive heart failure (CMS/HCC) Take 1 tablet (25 mg) by mouth once daily as directed. 90 tablet 3 12/05/19 24 Active Additional Information Patient not taking.Reported on 06/06/2024 metoprolol succinate XL (Toprol-XL) 100 mg 24 hr tabletIndicatio ns:Chronic systolic congestive heart failure (CMS/HCC) Take 1 tablet (100 mg) by mouth once daily in the morning. Take 100 mg in the morning and 50 mg in the evening 90 tablet 3 12/05/19 24 10/14/2 025 Active spironolactone (Aldactone) 50 mg tabletIndicatio ns:Chronic systolic congestive heart failure (CMS/HCC) Take 1 tablet (50 mg) by mouth in the morning. 90 tablet 3 12/05/19 Active Additional Information Patient not taking.Reported on 06/06/2024 metoprolol succinate XL (Toprol-XL) 50 mg 24 hr tabletIndicatio ns:Chronic systolic congestive heart failure (CMS/HCC) Take 1 tablet (50 mg) by mouth once daily in the evening. Do not crush or chew. Take 100 mg in the morning and 50 mg in the evening. 90 tablet 3 12/05/19 24 Active LORazepam (Ativan) 0.5 mg tablet Take 1 mg by mouth every 12 (twelve) hours if needed for anxiety. 12/17/19 Active spironolactone (Aldactone) 25 mg tabletIndicatio ns:Permanent atrial fibrillation (CMS/HCC) Take 1 tablet (25 mg) by mouth once daily as directed. 90 tablet 3 12/21/19 24 Active Additional Information Patient not taking.Reported on 06/06/2024 losartan (Cozaar) 25 mg tabletIndicatio ns:Permanent atrial fibrillation (CMS/HCC) Take 1 tablet (25 mg) by mouth once daily as directed. 90 tablet 3 12/21/19 24 Active ALPRAZolam (Xanax) 1 mg tablet Take 1 mg by mouth twice a day. 06/06/19 25 Active doxycycline (Vibra-Tabs) 100 mg tabletIndicatio ns:Status post cardiac pacemaker procedure TAKE 1 TABLET BY MOUTH 2 TIMES A DAY FOR 10 DAYS. TAKE WITH A FULL GLASS OF WATER AND DO NOT LIE DOWN FOR AT LEAST 30 MINUTES AFTER 20 tablet 06/29/19 25 Active apixaban (Eliquis) 5 mg tabletIndicatio ns:Persistent atrial fibrillation (CMS/HCC) TAKE 1 TABLET BY MOUTH 2 TIMES A DAY. DO NOT START BEFORE MARCH 16, 2024 60 tablet 3 09/06/19 25 Active apixaban (Eliquis) 5 mg tabletIndicatio ns:Persistent atrial fibrillation (CMS/HCC) Take 1 tablet (5 mg) by mouth two times daily. Do not start before March 16, 2024. 60 tablet 03/16/19 25 025 Discontinued Active Problems Problem Noted Date Diagnosed Date Anxiety 04/26/2024 Metastatic non-small cell lung cancer 01/26/2024 Persistent atrial fibrillation 12/05/2023 Chronic HFrEF (heart failure with reduced ejection fraction) 11/14/2023 Assessment & Plan (11/24/2023 2:25 PM EDT): [facility] II currently euvolemic without exacerbation. Continue GDMT- [...] pack years 09/14/2019 Obstructive sleep apnea 02/08/2017 Encounters Date Type Department Care Team Description 09/05/2024 Refill [facility] [address] [place] [address] Harrison Kearney MD Persistent atrial fibrillation (CMS/HCC) (Primary Dx) 07/17/2024 10:10 AM EDT Ancillary Procedure [facility] [address] [place] [address] Adjustment and management of cardiac pacemaker 07/14/2024 Orders Only [facility] [address] [place] [address] Harrison Kearney MD 06/28/2024 Refill [facility] [address] [place] [address] Harrison Kearney MD Status post cardiac pacemaker procedure from Last 3 Months Immunizations Immunization Administration Dates Next Due DTP 10/12/2021 Tdap 08/05/2014 Family History Medical History Relation Name Comments Heart disease Brother Heart failure Brother Heart disease Father Heart failure Father No Known Problems Mother Relation Name Status Comments Brother Father Mother Alive Social History Tobacco Use Types Packs/Day Years Used Date Smoking Tobacco: Former Cigarettes 2 30 0 04/1992 - 04/2022 Passive Smoke Exposure: Past Smokeless Tobacco: Current Chew Tobacco Cessation:Ready to Q uit: Not Asked; Counseling Given: Not Answered Alcohol Use Standard Drinks/Week Comments Not Currently 0 (1 standard drink = 0.6 oz pur e alcohol) [facility] [employer] Answer Date Recorded In the past 12 months has e [employer], gas, oil, or water [place] threatened to shut off services in your [...] Heterosexual or Straight 02/22 10:50 AM EST Last Filed Vital Signs Vital Sign Reading Time Taken Comments Blood Pressure 95/66 06/06/2024 10:50 AM EDT Pulse 81 06/06/2024 10:50 AM EDT Temperature 36.4 C (97.6 F) 11/30/2023 11:12 AM EDT Respiratory Rate 18 05/07/2024 4:30 PM EDT Oxygen Saturation 96% 06/06/2024 10:50 AM EDT Inhaled Oxygen Concentration - - Weight 127 kg (279 lb) 06/06/2024 10:50 AM EDT Height 185.4 cm (6' 1 ) 06/06/2024 10:50 AM EDT Body Mass Index 36.81 06/06/2024 10:50 AM EDT Plan of Treatment Upcoming Encounters Date Type Department Care Team (Late st Contact Info) Description 09/11/2024 11:00 AM EDT Office Visit [facility] [address] [place] [address] Harrison Kearney MD [address] [place] [address] Health Maintenance Due Date Last Done Comments CT Colonography 1978 Colonoscopy 1978 Colorectal Cancer Screening 1978 FIT-DNA 1978 FIT 1978 FOBT 1978 Sigmoidoscopy 1978 Hepatitis B Vaccines (1 of 3 - 19+ 3-dose series) 1997 Pneumococcal Vaccine: Pediat rics (0 to 5 Years) and At-Risk Patients (6 to 64 Years) (1 of 2 - PCV) 1997 COVID-19 Vaccine (2023-2 5 season) 2023 Adult Tetanus 08/05/2024 08/05/2014 Influenza Vaccine (#1) 2024 05/11/2024 Depression Screening 11/29/2024 11/30/2023 Zoster Vaccines (1 of 2) 01/18/2028 HIB Vaccines Aged Out No longer eligi ble based on patient's age to complete this topic HPV Vaccines Aged Out No longer eligi ble based on patient's age to complete this topic IPV Vaccines Aged Out No longer eligi ble based on patient's age to complete this topic Meningococcal B Vaccine Aged Out No l onger eligible based on patient's age to complete this topic Meningococcal Vaccine Aged Out No kat mae eligible based on patient's age to complete this topic Rotavirus Vaccines Aged Out No longer eligible based on patient's age to complete this topic Medical Devices Implanted Type Area Glass Cutting Machine Feeder Device Identifier Shelf Expiration Date Model / Serial / Lot Tps [id number] [id number] Av2 Implanted:Qty: 1 on 03/14/2024 by Harrison Kearney MD at [facility] Pacemaker N/A: Chest [employer]onic 02/21/2025 [id number] / [id number] / Description:LEADLESS PACEMAK ER Procedures Procedure Name Priority Date/Time Associated Diagnosis Comments CARDIAC DEVICE CHECK CHECK - REMOTE Routine 07/23/2024 1:35 PM EDT Adjustment and management of cardiac pacemaker CARDIAC DEVICE CHECK - REMOTE - PACEMAKER Routine 07/14/2024 12:00 AM EDT CARDIAC DEVICE CHECK CHECK - REMOTE Routine 06/25/2024 1:06 PM EDT Adjustment and management of cardiac pacemaker from Last 3 Months Results * CARDIAC DEVICE CHECK - REMOTE - PACEMAKER (07/23/2024 1:35 PM EDT) Only the most recent of2 resultswithin the time period is included. us Harrison Kearney MD CV IMPLANTABLE CARDIAC DEVICE [place] OCEDURES Final Result CPACS * Cardiac device check - Remote pacemaker (07/14/2024 12:00 AM EDT) Anatomical Region Laterality Modality Other 07/14/2024 us Harrison Kearney MD CV IMPLANTABLE CARDIAC DEVICE [place] OCEDURES Final Result from Last 3 Months Insurance [address] [place] [address] [facility] MEDICA[employer] Advance Directives * Full Code (Latest Code Status on File) Date Activated Date Inactivated Comments 11/05/2023 1:38 AM 11/11/2023 3:56 PM Care Teams Diesel Automotive Technician Relationship Specialty Start Date End Date Addison Ortiz MD Hematology and Oncology 07/09/22 Galdino Frye MD [address] [place] [address] Surgeon Pulmonary Disease 07/09/22
[2024-09-11 00:52] LABS: Hematocrit 36.3 % (42.0-54.0); Hemoglobin 11.8 g/dL (14.0-18.0); Immature Granulocytes Abs Auto 0.05 10^3/uL (0.00-0.03); Immature Granulocytes Pct Auto 0.6 % (0.0-0.5); Lymphocytes Absolute Auto 0.5 10^3/uL (1.2-3.8); Mean Corpuscular HGB Conc 32.5 g/dL (29.9-35.2); Mean Corpuscular Hemoglobin 28.8 pg (25.9-34.0); Mean Corpuscular Volume 88.5 fL (80.0-94.0); Platelet Count 358 10^3/uL (150-450); Red Blood Count 4.10 10^6/uL (4.70-6.10); White Blood Count 8.6 10^3/uL (4.0-11.0)
[2024-09-11 01:01] LABS: Anion Gap 13.0; Blood Urea Nitrogen 9.0 mg/dL (7.0-18.0); Calcium 10.5 mg/dL (8.5-10.1); Carbon Dioxide 28.7 mmol/L (21.0-32.0); Chloride 100 mmol/L (98-107); Estimated GFR (African America >60 (>=60 mL/min/1.73m^2); Estimated GFR (Non-African Ame >60 (>=60 mL/min/1.73m^2); Glucose 124 mg/dL (74-106); NT Pro B Type Natriuretic Pept 515.0 pg/mL (<=450.0); Potassium 3.7 mmol/L (3.5-5.1); Sodium 138 mmol/L (136-145)
[2024-09-11 01:06] LABS: Lactate/Lactic Acid 1.5 mmol/L (0.4-2.0)
[2024-09-11] MEDS: METHYLPREDNISOLONE SOD SUCC PF 125 MG/2 ML VIAL IVP ×2 (01:34→08:09)
[2024-09-11] MEDS: VANCOMYCIN HCL 2,000 MG in 0.9 % SODIUM CHLORIDE 500 ML 250 MG IV (02:16)
--- NOTE | 2024-09-11 02:28 | PC.NURSE ---
Patient wears 3L oxygen via nasal cannula at home, which is new within the past week. He was wearing oxygen when he arrived. He was 87% on room air and was then put on his normal 3L. His oxygen only came up to 90%, so he was increased to 5L and his spo2 increased to 93%.
--- NOTE | 2024-09-11 02:40 | PC.NURSE ---
Patient to ED by EMS due to increasing SOB. He is known to have lung cancer, states he was diagnosed almost 3 years ago. He states that he has been following closely with pulmonology as well as oncology, he sees [facility] at the [facility] in [place]. He states that he is not getting any treatment at this time because his last CT scan showed that his cancer is progressing despite having had radiation and several different chemo therapies, so his doctors are trying to have a different chemo approved by his insurance at this time. He says the only treatment he is getting at this time is oxygen. His increased SOB just started about 4 days ago, and although the oxygen helps, it is not enough, and he cannot even walk room to room in his home without becoming winded and dizzy. A record request was sent to [facility] to obtain a copy of his last CT scan.
[2024-09-11] MEDS: IPRATROPIUM/ALBUTEROL SULFATE 3 ML AMPUL.NEB IH ×4 (07:59→23:17)
--- NOTE | 2024-09-11 09:30 | CM.NOTE ---
Rounds made with Dr. Beavers, pt c/o increased SOB within the last week. Pt was on home oxygen as of this last week. Pt was on 3L [place] home oxygen and is now requiring 5L NC. Dr. Beavers spoke with RN regarding vapotherm d/t work of breathing. Dr. Beavers discussed with pt plan of care, lab results and CT scan. No discharge today.
--- NOTE | 2024-09-11 11:41 | PM.IMHP1 ---
Internal Medicine - H&P: HPI History of Present Illness Chief complaint: INCREASED O2 REQIREMENTS PNEUMONIA LUNG CANCER Narrative: This is a 44-year-old male with past medical history of stage IV lung CA, A-fib on Eliquis and metoprolol, half Raff, here for shortness of breath. History obtained from the patient as well as from the ED staff and his chart review. Patient states that he is off chemotherapy just 3 to 4 months as his last course of chemotherapy did not work for his cancer and he was told by the oncology team in [place] that he will need another type and course of chemotherapy however unfortunately did not get the insurance approval yet. Here today for shortness of breath that started around 1 to 2 weeks ago, he contacted his oncology and [facility] and they gave him oxygen 2 to 3 L at home. However patient's shortness breath increased over last 3 days accompanied by cough which was explained as hemoptysis as well as weight loss which was drastic as per his words. He also complains of chills with any sort of exertion. No fever no chills no nausea no vomiting. Encounter, patient is not in respiratory distress however he is needing around 3 to 5 L of oxygen on nasal cannula. In the ED, patient's hemoglobin was 11.8 and he did not have a leukocytosis or thrombocytopenia. CMP was significant for a mild hypercalcemia which I think is rated to his cancer. proBNP was 515 but patient was not overloaded on exam. Chest x-ray showed mild enlarged heart size, multiple nonspecific areas of consolidation in the upper lobes and lower lobes could reflect multifocal pneumonia and/or neoplastic process. No pleural effusion no pneumothorax left anterior chest port with catheter tip to the SVC. CTA of the chest was negative for pulmonary embolism, it did show extensive pulmonary nodules and peribronchial vascular infiltration throughout the both lungs. Could be due to the known malignancy although a superimposed pneumonia could have a similar appearance as well. ED staff reached out to the patient oncology team in [place] who recommended him being admitted to our facility for now. Patient will be admitted to hospitalist service for further workup and management. Review of Systems ROS Status of ROS 10 or more systems reviewed and unremarkable except as noted in history and below [facility] Medical History (Updated 09/11/24 @ 11:48 by Chuyita Beavers MD) Pacemaker �Z95.0 - Presence of cardiac pacemaker (ICD-10) Immunosuppressed due to chemotherapy �D84.821 - Immunodeficiency due to drugs (ICD-10) �T45.1X5A - Adverse effect of antineoplastic and immunosuppressive drugs, initial encounter (ICD-10) �Z79.899 - Other termite renewal inspector (current) drug therapy (ICD-10) Opioid use disorder in remission �F11.91 - Opioid use, unspecified, in remission (ICD-10) (HFpEF) heart failure with preserved ejection fraction �I50.30 - Unspecified diastolic (congestive) heart failure (ICD-10) Obesity �E66.9 - Obesity, unspecified (ICD-10) Squamous cell carcinoma of lung, stage IV �C34.90 - Malignant neoplasm of unspecified part of unspecified bronchus or lung (ICD-10) Surgical History (Updated 09/11/24 @ 08:50 by Neisha Hairston) History of infusaport central venous catheter insertion �Z98.890 - Other specified postprocedural states (ICD-10) Hx of tonsillectomy �Z90.89 - Acquired absence of other organs (ICD-10) Social History Highest level of school completed/degree received: Bachelor's degree Little interest or pleasure in doing things: not at all Feeling down, depressed, or hopeless: not at all Do you think of yourself as: straight/heterosexual Gender Identity: male Meds Home Medications and Allergies Home Medications �Medication �Instructions �Recorded �Confirmed �Type albuterol sulfate 90 mcg/actuation 2 puff inhalation Q6H PRN 11/02/23 09/10/24 History aerosol inhaler shortness of breath or wheezing apixaban 5 mg tablet (Eliquis) 5 mg PO Q12H 11/02/23 09/10/24 History buprenorphine 8 mg-naloxone 2 mg 1 film sublingual BID 11/02/23 09/10/24 History sublingual film alprazolam 1 mg tablet 1 mg PO BID PRN anxiety 09/10/24 09/11/24 History dapagliflozin propanediol 10 mg 10 mg PO DAILY 09/10/24 09/11/24 History tablet (Farxiga) furosemide 40 mg tablet 40 mg PO DAILY PRN edema 09/10/24 09/11/24 History lorazepam 1 mg tablet 1 mg PO Q8H PRN dyspnea 09/10/24 09/11/24 History losartan 25 mg tablet 25 mg PO .QHS 09/10/24 09/11/24 History metoprolol succinate 50 mg 50 mg PO .qhs 09/10/24 09/11/24 History tablet,extended release 24 hr spironolactone 25 mg tablet 25 mg PO DAILY 09/10/24 09/11/24 History metoprolol succinate 100 mg 100 mg PO QAM 09/11/24 09/11/24 History tablet,extended release 24 hr Allergies Allergy/AdvReac Type Severity Reaction Status Date / Time acetaminophen (From AdvReac Intermediate Nausea Verified 09/10/24 23:54 Darvocet-N) propoxyphene (From AdvReac Intermediate Nausea Verified 09/10/24 23:54 Darvocet-N) Exam Narrative Exam Narrative: Constitutional: Ill-appearing frail 44-year-old male with cachexia and temporal wasting, he is alert and oriented x3, not in acute distress Respiratory Common normals: no use of accessory muscles Effort & inspection: able to speak in complete sentences Auscultation: Decreased bilateral lung sounds with wheezes and crackles. Not using accessory muscles not using abdominal wall muscles. Cardio Common normals: S1 normal heart sound, S2 normal heart sound, no gallops, no murmurs and no rub Abnormal rhythm but normal rate Peripheral pulses: radial pulses present, posterior tibial pulses present and dorsalis pedis pulses present Abdomen: Soft, nontender, no organomegaly or signs of acute abdomen Extremity Common normals: no clubbing, cyanosis, no edema, intact peripheral pulses bilateral Neuro Common normals: oriented x3, CN's II-XII intact bilaterally, moves all extremities, no focal motor deficits and no sensory deficits noted Sensorium/orientation: oriented to person, oriented to place and oriented to time Speech: speech normal Motor exam: strength 5/5 throughout Constitutional Vital Signs, click to edit/add: Last Vital Signs Temp 98.2 F 09/11/24 08:46 Pulse 93 H 09/11/24 09:10 Resp 30 H 09/11/24 09:10 BP 116/81 09/11/24 08:41 Pulse Ox 89 L 09/11/24 09:10 O2 Del Method Nasal Cannula 09/11/24 08:46 O2 Flow Rate 5 09/11/24 08:46 Internal Medicine - H&P: Reslt Labs Labs: Short CBC 09/11/24 Range/Units 00:42 WBC 8.6 (4.0-11.0) 10^3/uL Hgb 11.8 L (14.0-18.0) g/dL Hct 36.3 L (42.0-54.0) % Plt Count 358 (150-450) 10^3/uL BMP 09/11/24 00:30 Sodium 138 Potassium 3.7 Chloride 100 Carbon Dioxide 28.7 BUN 9.0 Creatinine 0.88 Glucose 124 H Calcium 10.5 H Assessment and Plan Assessment and Plan (1) Lung cancer: (2) Acute dyspnea: (3) Acute hypoxic respiratory failure: Assessment and Plan: Acute on chronic hypoxic respiratory failure in the setting of stage IV lung adenocarcinoma not on chemotherapy currently Component of postobstructive pneumonia Component of COPD exacerbation - Admit patient to stepdown unit - Start high flow nasal cannula to improve the patient's work of breathing and provide him with some more comfort - Added Robitussin as well as promethazine for his cough - Start IV vancomycin IV Zosyn to be dosed by pharmacy - Obtain sputum culture -Start methylprednisone 40 mg every 12 hours as well as DuoNeb treatment -Patient will need oxygen reassessment on discharge - Closely monitor the patient and if the oxygen requirements or the work of breathing worsens I will call for transferring him to a place with ICU coverage. For the meantime patient is not respiratory distress - Full code - Anticoagulation with Eliquis will continue for now - GI prophylax with IV pantoprazole 40 mg daily - I discussed with the patient the plan in details. Answered all his questions. He is in agreement and understands plan (4) Multifocal pneumonia:
--- NOTE | 2024-09-11 12:04 | SWNOTE1 ---
SW stopped in to speak with pt in regards to Suboxone and to offer any extra support if needed. Pt does have stage 4 lung cancer. Pt lives at home with his significant other who he has been with for 21 years. He voiced his mother in law helps often as well. Pt voiced he does feel he is surrounded with good support. He does not feel they talk much about everything that is going on, but they do help him with many things. Pt was unsure of where he gets his home oxygen from, [email or web address]? or possibly [employer]. SW to call. Pt voiced he does not remember when he went to hospital his previous time and got the oxygen. He just remembers his mother in law speaking to oncologist and she told him to go to hospital. He was then sent home with oxygen. SW did ask pt about his Suboxone. 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 He currently gets his Suboxone from [facility] [facility] [place]. It is online. He meets with social services counselor monthly, then he has online group meetings as well. Pt and SW did speak about his chemo. He voiced it is on hold at this time, waiting for insurance to approve it. He has Oncologist in [place], waiting to hear from them to see when Chemo starts again. Pt did become emotional during end of conversation. He spoke about his son moving back to [place] close by from [place]. His son and 2 year old grandson want to spend as much time with him as they can. SW offered support to patient. Nurse did come in and check pt's oxygen levels. Pt will be placed on vapotherm at this time. SW did advise pt that if he needs to talk to SW or needs some extra support during visit, SW can come back.
[2024-09-11] MEDS: PANTOPRAZOLE SODIUM 40 MG VIAL IV (12:05)
[2024-09-11] MEDS: METOPROLOL SUCCINATE 100 MG TAB.ER.24H PO (12:05)
--- NOTE | 2024-09-11 12:05 | SWNOTE1 ---
Pt was unsure what company he gets home oxygen through. He voiced they used to be [employer]. That is now [employer] Called [employer] and pt does receive home oxygen through them. Pt's prescription is for bipap 7-15 liters, and O2 is 2 liters at rest, 3 liters on ambulation.
[2024-09-11] MEDS: APIXABAN 5 MG TABLET PO ×2 (12:06→20:26)
[2024-09-11] MEDS: SPIRONOLACTONE 25 MG TABLET PO (12:06)
[2024-09-11] MEDS: ALPRAZOLAM 1 MG TABLET PO (12:06)
[2024-09-11] MEDS: BUPRENORPHINE HCL/NALOXONE HCL 8-2 MG TABLET SUBL 1 TAB SL (12:07)
[2024-09-11] MEDS: VANCOMYCIN HCL 1,250 MG in 0.9 % SODIUM CHLORIDE 250 ML 166.667 MG IV (12:58)
[2024-09-11] MEDS: PIPERACILLIN SODIUM/TAZOBACTAM 3.375 GM in 0.9 % SODIUM CHLORIDE 50 ML IV ×2 (13:00→21:46)
[2024-09-11 17:02] LABS: SARS-CoV-2 Ag NEGATIVE (NEGATIVE)
[2024-09-11] MEDS: VANCOMYCIN HCL 1,250 MG in 0.9 % SODIUM CHLORIDE 250 ML 250 MG IV (20:25)
[2024-09-11] MEDS: LORAZEPAM 1 MG TABLET PO (20:26)
[2024-09-11] MEDS: METOPROLOL SUCCINATE 50 MG TAB.ER.24H PO (21:46)
[2024-09-11] MEDS: LOSARTAN POTASSIUM 25 MG TABLET PO (21:47)
[2024-09-12] VITALS (71 sets, daily range): BP systolic 93–107; BP diastolic 59–78; PULSE 80–96; TEMP 36.4–36.9; O2SAT 86–98; BMI 30.3
[2024-09-12] MEDS: IPRATROPIUM/ALBUTEROL SULFATE 3 ML AMPUL.NEB IH ×4 (03:58→15:42)
[2024-09-12] MEDS: VANCOMYCIN HCL 1,250 MG in 0.9 % SODIUM CHLORIDE 250 ML 250 MG IV (05:03)
[2024-09-12] MEDS: PIPERACILLIN SODIUM/TAZOBACTAM 3.375 GM in 0.9 % SODIUM CHLORIDE 50 ML IV ×2 (05:04→13:32)
--- NOTE | 2024-09-12 06:00 | PC.NURSE ---
Respiratory distress approx 0530, pt got up to use the urinal and he became flush, felt like he was on Fire and couldn't breathe . RN noted spo2 was at 86% , notified RT that he was in distress and RN increased his high flow to 40lts and 100%. Pt sitting at bedside I feel like I am going to ! I can't breathe . RN Encourage pt to focus on breathing through his nose and not his mouth. RN applied ICE rags to back of his neck and emotional support given. After Approx. 5-10+ mins. pt was calming down. RN notified RT that crisis averted. Decrease his HIGHFLO to original setting 35lts and 50%. because he was back to baseline. RN mentioned to pt that he might want to consider having us put a navas cath. in place until his respiratory status improves. Pt stated, absolutely not
[2024-09-12] MEDS: LORAZEPAM 1 MG TABLET PO (06:30)
[2024-09-12] MEDS: GUAIFENESIN 200 MG/10 ML LIQUID PO (06:31)
[2024-09-12 08:01] LABS: Hematocrit 35.4 % (42.0-54.0); Hemoglobin 11.5 g/dL (14.0-18.0); Mean Corpuscular HGB Conc 32.5 g/dL (29.9-35.2); Mean Corpuscular Hemoglobin 29.0 pg (25.9-34.0); Mean Corpuscular Volume 89.2 fL (80.0-94.0); Platelet Count 366 10^3/uL (150-450); Red Blood Count 3.97 10^6/uL (4.70-6.10); White Blood Count 19.7 10^3/uL (4.0-11.0)
[2024-09-12 08:12] LABS: Alanine Aminotransferase 22 U/L (16-63); Albumin Globulin Ratio 0.5; Albumin Level 2.6 g/dL (3.4-5.0); Alkaline Phosphatase 36 U/L (46-116); Anion Gap 13.2; Aspartate Amino Transferase 21 U/L (15-37); Blood Urea Nitrogen 11.0 mg/dL (7.0-18.0); Calcium 10.0 mg/dL (8.5-10.1); Carbon Dioxide 27.0 mmol/L (21.0-32.0); Chloride 104 mmol/L (98-107); Estimated GFR (African America >60 (>=60 mL/min/1.73m^2); Estimated GFR (Non-African Ame >60 (>=60 mL/min/1.73m^2); Globulin 4.8 g/dL; Glucose 153 mg/dL (74-106); Potassium 4.2 mmol/L (3.5-5.1); Sodium 140 mmol/L (136-145); Total Protein 7.4 g/dL (6.4-8.2)
[2024-09-12 08:14] LABS: Magnesium 1.7 mg/dL (1.8-2.4)
[2024-09-12 08:31] LABS: Basophils Abs Manual 0.00 10^3/uL (0.00-0.10); Basophils Percent Manual 0.0 % (0.2-2.0); Eosinophils Absolute Manual 0.00 10^3/uL (0.00-0.70); Eosinophils Percent Manual 0.0 % (0.9-7.0); Lymphocytes Absolute Manual 0.39 10^3/uL (1.20-3.80); Lymphocytes Percent Manual 2.0 % (20.5-60.0); Monocytes Absolute Manual 0.78 10^3/uL (0.30-0.80); Monocytes Percent Manual 4.0 % (1.7-12.0); Segmented Neut Absolute Manual 18.51 10^3/uL (1.4-6.5); Segmented Neutrophils % Manual 94.0 (43.0-75.0)
[2024-09-12] MEDS: PANTOPRAZOLE SODIUM 40 MG VIAL IV (08:33)
[2024-09-12] MEDS: METOPROLOL SUCCINATE 100 MG TAB.ER.24H PO (08:33)
[2024-09-12] MEDS: METHYLPREDNISOLONE SOD SUCC PF 40 MG/ML VIAL IVP (08:33)
[2024-09-12] MEDS: APIXABAN 5 MG TABLET PO (08:33)
[2024-09-12] MEDS: SPIRONOLACTONE 25 MG TABLET PO (08:34)
[2024-09-12] MEDS: MAGNESIUM SULFATE/D5W 1 GM/100 ML PREMIX IV (09:10)
--- NOTE | 2024-09-12 09:40 | CM.NOTE ---
Rounds made with Dr. Beavers, updated pt on plan of care and diagnosis. Case Management will reach out to pt's oncologist for Dr. Beavers to speak with her regarding further recommendations and updates.
[2024-09-12] MEDS: ALPRAZOLAM 1 MG TABLET PO (09:45)
--- NOTE | 2024-09-12 10:05 | CM.NOTE ---
Case Management spoke with [facility], spoke with receptionist airline lounge and left Dr. Beavers's cell phone number and pt information. Assured that Dr. Bryon Azevedo will reach out to Dr. Beavers today. Updated Dr. Beavers via tiger txt.
--- NOTE | 2024-09-12 10:17 | P.PN_ITS ---
Progress Note: Subjective Subjective Interval history: Patient seen and examined at bedside. He is currently on Vapotherm, 35% and 50 L stating that he feels a little better than yesterday. Had to increase his FiO2 to 45%. Complaining of anxiety and stated that he has nightmares as he sees his brother in his dreams. Wanted to get his Xanax back. I explained to him that I will put it back on. His labs from leukocytosis I think due to steroids as well as maybe infectious process. No fever no chills. He does not have hemoptysis today. He does have productive cough. His vital signs are stable Exam Narrative Exam Narrative: Constitutional: Ill-appearing frail 44-year-old male with cachexia and temporal wasting, he is alert and oriented x3, not in acute distress, Anxious during the encounter Respiratory Common normals: no use of accessory muscles Effort & inspection: able to speak in complete sentences Auscultation: Decreased bilateral lung sounds with wheezes and crackles. Not using accessory muscles not using abdominal wall muscles. Cardio Common normals: S1 normal heart sound, S2 normal heart sound, no gallops, no murmurs and no rub Abnormal rhythm but normal rate Peripheral pulses: radial pulses present, posterior tibial pulses present and dorsalis pedis pulses present Abdomen: Soft, nontender, no organomegaly or signs of acute abdomen Extremity Common normals: no clubbing, cyanosis, no edema, intact peripheral pulses bilateral Neuro Common normals: oriented x3, CN's II-XII intact bilaterally, moves all extremities, no focal motor deficits and no sensory deficits noted Sensorium/orientation: oriented to person, oriented to place and oriented to time Speech: speech normal Motor exam: strength 5/5 throughout Constitutional Vital Signs, click to edit/add: Last Vital Signs Temp 98.4 F 09/12/24 07:57 Pulse 80 09/12/24 09:57 Resp 16 09/12/24 08:00 BP 96/70 09/12/24 07:54 Pulse Ox 87 L 09/12/24 09:58 O2 Del Method Vapotherm 09/12/24 09:58 O2 Flow Rate 35 09/12/24 09:58 FiO2 40 09/12/24 09:58 Progress Note: Objective Labs Labs: Short CBC 09/12/24 Range/Units 07:45 WBC 19.7 H (4.0-11.0) 10^3/uL Hgb 11.5 L (14.0-18.0) g/dL Hct 35.4 L (42.0-54.0) % Plt Count 366 (150-450) 10^3/uL BMP 09/12/24 07:45 Sodium 140 Potassium 4.2 Chloride 104 Carbon Dioxide 27.0 BUN 11.0 Creatinine 0.73 Glucose 153 H Calcium 10.0 Liver Function 09/12/24 Range/Units 07:45 Total Bilirubin 0.5 (0.2-1.0) mg/dL AST 21 (15-37) U/L ALT 22 (16-63) U/L Alkaline Phosphatase 36 L (46-116) U/L Albumin 2.6 L (3.4-5.0) g/dL Progress Note: A&P Assessment and Plan (1) Lung cancer: (2) Acute dyspnea: (3) Acute hypoxic respiratory failure: (4) Multifocal pneumonia: Plan Acute on chronic hypoxic respiratory failure in the setting of stage IV lung adenocarcinoma not on chemotherapy currently Component of postobstructive pneumonia Component of COPD exacerbation - Admit patient to stepdown unit - Start high flow nasal cannula to improve the patient's work of breathing and provide him with some more comfort - Added Robitussin as well as promethazine for his cough - Start IV vancomycin IV Zosyn to be dosed by pharmacy - Obtain sputum culture -Start methylprednisone 40 mg every 12 hours as well as DuoNeb treatment -Patient will need oxygen reassessment on discharge - Closely monitor the patient and if the oxygen requirements or the work of breathing worsens I will call for transferring him to a place with ICU coverage. For the meantime patient is not respiratory distress - Full code - Anticoagulation with Eliquis will continue for now - GI prophylax with IV pantoprazole 40 mg daily - I discussed with the patient the plan in details. Answered all his questions. He is in agreement and understands plan 09/12/2024 patient's ox requirement is slightly increased today. I restart his Xanax as this will help with his work of breathing as well. He continues to be on IV vancomycin IV Zosyn. I ordered MRSA swab. The respiratory panel was negative. I am also continuing him on steroids IV as well as DuoNebs. I requested to speak to his oncologist at [facility], they will call me back soon. Will discuss the plan for him. I added promethazine and Robitussin yesterday for his cough which seems to be loosening up as he is pleasant. He is not in respiratory distress. His work of breathing is better. I discussed with him the plan in details. Answered all his questions. Continue to keep patient and stepdown unit for now.
[2024-09-12] MEDS: VANCOMYCIN HCL 1,250 MG in 0.9 % SODIUM CHLORIDE 250 ML 167 MG IV (11:59)
[2024-09-12] MEDS: ACETAMINOPHEN 325 MG TABLET 650 MG PO (12:02)
--- NOTE | 2024-09-12 12:20 | CM.NOTE ---
Called [facility] to initate transfer of patient, spoke with bed coordinator and left Dr. Beavers contact number.
--- NOTE | 2024-09-12 14:01 | CM.NOTE ---
[facility] will accept pt for transfer, accepting physician Magaly. RN and MS personal secretary updated.
--- NOTE | 2024-09-12 15:04 | P.DS_ITS ---
DS: Providers Provider Date of admission: 09/11/24 08:30 Primary care physician: Non-Staff Physician, Consults: 09/11/24 Consult to Dietitian Routine Reason for consultation: wt loss, poor appetite, lung ca Has provider been notified: No 09/12/24 10:17 Physical Therapy Eval and Treat Routine Reason for consultation: Stage 4 Lung Ca, may need placement? Discharging clinician: Chuyita Beavers Anticipated date of discharge: 09/12/24 DS: Diagnosis Discharge Diagnosis (1) Lung cancer: (2) Acute dyspnea: (3) Acute hypoxic respiratory failure: (4) Multifocal pneumonia: DS: Summary Hospital Course Hospital Course: This is a 44-year-old male with past medical history of stage IV lung CA, A-fib on Eliquis and metoprolol, half Raff, here for shortness of breath. History obtained from the patient as well as from the ED staff and his chart review. Patient states that he is off chemotherapy just 3 to 4 months as his last course of chemotherapy did not work for his cancer and he was told by the oncology team in [place] that he will need another type and course of chemotherapy however unfortunately did not get the insurance approval yet. Here today for shortness of breath that started around 1 to 2 weeks ago, he contacted his oncology and [facility] and they gave him oxygen 2 to 3 L at home. However patient's shortness breath increased over last 3 days accompanied by cough which was explained as hemoptysis as well as weight loss which was drastic as per his words. He also complains of chills with any sort of exertion. No fever no chills no nausea no vomiting. Encounter, patient is not in respiratory distress however he is needing around 3 to 5 L of oxygen on nasal cannula. In the ED, patient's hemoglobin was 11.8 and he did not have a leukocytosis or thrombocytopenia. CMP was significant for a mild hypercalcemia which I think is rated to his cancer. proBNP was 515 but patient was not overloaded on exam. Chest x-ray showed mild enlarged heart size, multiple nonspecific areas of conso lidation in the upper lobes and lower lobes could reflect multifocal pneumonia and/or neoplastic process. No pleural effusion no pneumothorax left anterior chest port with catheter tip to the SVC. CTA of the chest was negative for pulmonary embolism, it did show extensive pulmonary nodules and peribronchial vascular infiltration throughout the both lungs. Could be due to the known malignancy although a superimposed pneumonia could have a similar appearance as well. ED staff reached out to the patient oncology team in [place] who recommended him being admitted to our facility for now. Patient will be admitted to hospitalist service for further workup and management. Acute on chronic hypoxic respiratory failure in the setting of stage IV lung adenocarcinoma not on chemotherapy currently Component of postobstructive pneumonia Component of COPD exacerbation - Admit patient to stepdown unit - Start high flow nasal cannula to improve the patient's work of breathing and provide him with some more comfort - Added Robitussin as well as promethazine for his cough - Start IV vancomycin IV Zosyn to be dosed by pharmacy - Obtain sputum culture -Start methylprednisone 40 mg every 12 hours as well as DuoNeb treatment -Patient will need oxygen reassessment on discharge - Closely monitor the patient and if the oxygen requirements or the work of breathing worsens I will call for transferring him to a place with ICU coverage. For the meantime patient is not respiratory distress - Full code - Anticoagulation with Eliquis will continue for now - GI prophylax with IV pantoprazole 40 mg daily - I discussed with the patient the plan in details. Answered all his questions. He is in agreement and understands plan 09/12/2024 patient's ox requirement is slightly increased today. I restart his Xanax as this will help with his work of breathing as well. He continues to be on IV vancomycin IV Zosyn. I ordered MRSA swab. The respiratory panel was negative. I am also continuing him on steroids IV as well as DuoNebs. I requested to speak to his oncologist at [facility], they will call me back soon. Will discuss the plan for him. I added promethazine and Robitussin yesterday f or his cough which seems to be loosening up as he is pleasant. He is not in respiratory distress. His work of breathing is better. I discussed with him the plan in details. Answered all his questions. Continue to keep patient and stepdown unit for now. After that, pt accepted by [facility] hospitalist team, Dr. Mckenzie. He will leave at 4 pm. Time Spent with Patient Time attestation: Total time spent providing and/or coordinating discharge services: Exam Constitutional Vital Signs, click to edit/add: Last Vital Signs Temp 98.4 F 09/12/24 07:57 Pulse 80 09/12/24 14:00 Resp 22 H 09/12/24 11:23 BP 101/68 09/12/24 11:23 Pulse Ox 90 L 09/12/24 11:33 O2 Del Method Vapotherm 09/12/24 11:33 O2 Flow Rate 35 09/12/24 11:33 FiO2 50 09/12/24 11:33 DS: Data Data Completed and Pending Labs on day of discharge: Labs from last 24 hours 09/12/24 09/11/24 07:45 16:38 WBC 19.7 H RBC 3.97 L Hgb 11.5 L Hct 35.4 L MCV 89.2 MCH 29.0 MCHC 32.5 RDW 17.3 H Plt Count 366 MPV 9.2 L Seg Neuts % (Manual) 94.0 H Lymphocytes % (Manual) 2.0 L Monocytes % (Manual) 4.0 Eosinophils % (Manual) 0.0 L Basophils % (Manual) 0.0 L Neutrophils # (Manual) 18.51 H Lymphocytes # (Manual) 0.39 L Monocytes # (Manual) 0.78 Eosinophils # (Manual) 0.00 Basophils # (Manual) 0.00 Sodium 140 Potassium 4.2 Chloride 104 Carbon Dioxide 27.0 Anion Gap 13.2 BUN 11.0 Creatinine 0.73 Est GFR ( Amer) >60 Est GFR (Non-Af Amer) >60 BUN/Creatinine Ratio 15.1 Glucose 153 H Calcium 10.0 Magnesium 1.7 L Total Bilirubin 0.5 AST 21 ALT 22 Alkaline Phosphatase 36 L Total Protein 7.4 Albumin 2.6 L Globulin 4.8 Albumin/Globulin Ratio 0.5 Influenza Type A Ag Negative Influenza Type B Ag Negative RSV Antigen Not detected SARS-CoV-2 Ag (CV2AG) Negative Discharge Plan Discharge Disposition: [facility]
--- NOTE | 2024-09-12 16:14 | PC.NURSE ---
suboxone counted and returned to pt
--- NOTE | 2024-09-12 18:14 | PC.NURSE ---
bedside report given to [facility]. pt discharged wt belongings, family at bedside. report called to yosef at [facility] [phone]
--- NOTE | 2024-09-12 18:25 | DIETREC ---
Recommend 237 mL Ensure High PRO BID d/t poor PO intakes.
== END 2024-09-12 18:10 | disposition short-term general hospital (02) | DRG 133 ==
LOC: ER 09-11 06:52 → MS 09-11 08:36
PROVIDERS: Admitting Provider Student in an Organized Health Care Education/Training Program; Emergency Provider Internal Medicine; Visit Provider Student in an Organized Health Care Education/Training Program
DX: J96.21 Acute and chronic respiratory failure with hypoxia (principal); Z99.81 Dependence on supplemental oxygen; C34.90 Malignant neoplasm of unspecified part of unspecified bronchus or lung; J18.9 Pneumonia, unspecified organism; J44.0 Chronic obstructive pulmonary disease with (acute) lower respiratory infection; J44.1 Chronic obstructive pulmonary disease with (acute) exacerbation; Z79.01 Long term (current) use of anticoagulants; I50.32 Chronic diastolic (congestive) heart failure; Z79.899 Other long term (current) drug therapy; Z87.891 Personal history of nicotine dependence; I48.91 Unspecified atrial fibrillation; Z95.0 Presence of cardiac pacemaker; R64 Cachexia; Z92.21 Personal history of antineoplastic chemotherapy; Z68.30 Body mass index [BMI] 30.0-30.9, adult
CPT/HCPCS: 36415; 71045; 71275; 80048; 80053; 83605; 83735; 83880; 84484; 85007; 85025; 85027; 87040; 87081; 87420; 87804; 87811; 93005; 94640; 94761; 94799; 96365; 96366; 96367; 96375; 96376; 97162; 99285; J0574; J0696; J2543; J2919; J3373; J3475; Q9967